=== PATIENT | male | born 1970 | race Caucasian/White ===

== ENCOUNTER 2020-12-25 07:47 | Emergency (ER) | payer MEDICARE, MEDICAID, SELFPAY ==
--- NOTE | 2020-12-25 07:50 | ECG_ITS ---
Test Reason : CHEST PAIN Blood Pressure : / mmHG Vent. Rate : 113 BPM Atrial Rate : 113 BPM P-R Int : 142 ms QRS Dur : 086 ms QT Int : 328 ms P-R-T Axes : 067 -03 063 degrees QTc Int : 449 ms Sinus tachycardia Right atrial enlargement Minimal voltage criteria for LVH, may be normal variant Nonspecific T wave abnormality Abnormal ECG When compared with ECG of 26-FEB-2020 18:17, Vent. rate has increased BY 40 BPM Nonspecific T wave abnormality now evident in Lateral leads Referred By: Generic ED Physician Electronically Signed By:Macario Thacker
[2020-12-25 08:21] VITALS: BP 124/85; PULSE 108; RESP 20; TEMP 36.8; O2SAT 96; BMI 29.3
--- NOTE | 2020-12-25 08:36 | XR_ITS ---
EXAMINATION: XR CHEST CLINICAL INFORMATION: Chest pain, shortness of breath. COMPARISON: 02/26/2020 chest radiographs. TECHNIQUE: 2 views of the chest were obtained. FINDINGS: The lungs are clear. The heart and mediastinal structures are unremarkable. A left-sided pacemaker appears in good position without interval change. XR/XR chest 2V IMPRESSION: No acute cardiopulmonary process.
--- NOTE | 2020-12-25 08:42 | ED_ITS ---
HPI - Chest Pain General Chief Complaint: Chest Pain Stated Complaint: chest pain Time Seen by Provider: 12/25/20 08:31 Source: patient Mode of arrival: ambulatory History of Present Illness HPI narrative: 50-year-old male with a past medical history of pacemaker secondary to cardiomyopathy, HTN, HLD, depression, presenting to the ED compl aining of left-sided chest pressure x2 days but right-sided substernal chest pain with deep breathing. Also reports cough productive of white phlegm and SOB. Admits recently was instructed to double that doses of his Lasix secondary to believed fluid buildup. Denies fever, chills, abdominal pain, LE edema, recent travel, history of blood clots MD complaint: chest discomfort Related Data Previous Rx's Medication Instructions Recorded furosemide 20 mg tablet 20 mg PO DAILY PRN 30 Days #30 tab 10/18/20 amiodarone 200 mg tablet 200 mg PO DAILY 90 Days #90 tab 10/25/20 carvedilol 25 mg tablet 25 mg PO BID 90 Days #180 tab 10/25/20 spironolactone 25 mg tablet 12.5 mg PO DAILY 90 Days #45 tab 11/22/20 Allergies Allergy/AdvReac Type Severity Reaction Status Date / Time No Known Allergies Allergy Verified 12/25/20 08:26 Review of Systems Review of Systems: Constitutional: No Weight loss, No Fever, No Chills Cardiovascular: + Chest Pain, + SOB, + Dyspnea on Exertion, +Orthopnea, No Edema, No Palpitations Respiratory: + Cough, + Sputum, No Wheezing Gastrointestinal: No Nausea, No Vomiting, No Diarrhea, No Constipation, No Abdominal pain Genitourinary: No irregular bleeding, No Dysuria, No Urinary Frequency, No Hematuria Musculoskeletal: No joint pain, No Myalgias, No Joint Swelling Skin: No Skin Lesions, No rash Neuro: No Weakness, No Numbness, No Dizziness, No Headache Yes all other systems are reviewed and are negative [facility] Past Medical History Attestation statement: The following information was validated with the patient. Medical History (Updated 12/25/20 @ 12:01 by CHRIS Gilmore) Artificial cardiac pacemaker Back injuries Cardiomyopathy HTN (hypertension) Social History Social History Smoking Status: Current every day smoker Use of substances other than those prescribed or required for medical reasons: No Advance Directives: No Advance Directives Information Provided: Yes Physical Exam Vital Signs: Vital Signs: Last Vital Signs Temp 98.2 F 12/25/20 08:21 Pulse 101 H 12/25/20 11:56 Resp 16 12/25/20 11:56 BP 127/82 12/25/20 11:56 Pulse Ox 99 12/25/20 11:56 Body Mass Index 29.3 Const: General: cooperative, healthy appearing, comfortable and no acute distress Orientation/consciousness: patient oriented x3 Limitations: no limitations HENMT: Head: Yes normal to inspection Ears: hearing grossly normal bilaterally General nose exam: Normal external nose present Face and sinus: Yes normal facial exam Eyes: General: appearance normal, both eyes and all related structures EOM: EOMs intact bilaterally Neck: Neck: Yes normal visual inspection and Yes no lymphadenopathy Chest: Other: Left upper chest wall pacemaker site without evidence of infection/cellulitis or tenderness Chest palpation & inspection: normal inspection of the chest Resp: Effort & Inspection: normal respiratory effort Auscultation: clear to auscultation bilaterally, no rales, no rhonchi and no wheezes Cardio: Rate: regular rate Heart sounds: S1 normal heart sound present and S2 normal heart sound present GI: Inspection: Yes normal to inspection Palpation (GI): Soft to palpation, nontender, no guarding and not rigid Skin: Rashes: no rashes Wounds: no wounds Neuro: General: patient oriented x3 Gait exam (Neuro): Normal gait present Extrem: General: Yes normal to inspection and No edema Course Course Course Narrative: * Troponin 5.3 > will obtain 3 hour repeat. BNP 124, no evidence of CHF/fluid overload. COVID-19/influenza/RSV negative XR chest 2V IMPRESSION: No acute cardiopulmonary process. * Negative. Repeat troponin equivocal PA unlikely. Results discussed with patient including worrisome signs and symptoms and strict return precautions. Patient verbalized understanding feel safe for discharge home to follow-up with his pipe bowls paint trimmer MDM - Chest Pain MDM Narrative Medical decision making narrative: 50-year-old male with a past medical history of pacemaker secondary to cardiomyopathy, HTN, HLD, depression, presenting to the ED complaining of left-sided chest pressure x2 days but right-sided substernal chest pain with deep breathing. On exam tachycardic, NAD/nontoxic appearing, lungs CTA. Concern for ACS vs PE vs CHF vs viral syndrome/COVID-19 o r pneumonia. Low concern for severe sepsis. Plan: EKG, labs, CXR, COVID-19 testing, re-evaluate Medical Records Data Attestation: I reviewed the patient's medical records. Lab Data Attestation: I reviewed the patient's lab results. Result diagrams: 12/25/20 08:53 12/25/20 08:53 Labs: Lab Results 12/25/20 12/25/20 12/25/20 Range/Units 08:53 08:53 08:53 WBC 9.2 (4.8-10.8) X10*3/uL RBC 5.15 (4.60-5.80) X10*6/uL Hgb 16.2 (14.0-18.0) g/dl Hct 48.7 (42-52) % MCV 94.6 (80-98) fL MCH 31.5 (27.0-33.0) pg MCHC 33.3 (31.0-36.0) g/dl RDW 13.9 (11.0-16.0) % Plt Count 360 (160-400) X10*3/uL MPV 9.5 (9.4-12.4) fL Immature Gran % (Auto) 0.1 (0.0-0.4) % Neut % (Auto) 73.7 H (45-73) % Lymph % (Auto) 16.6 L (20-40) % [place] % (Auto) 5.4 (2-11) % Eos % (Auto) 3.3 (0-4) % Baso % (Auto) 0.9 (0-2) % Lymph # (Auto) 1.5 (1.2-4.9) X10*3/uL [place] # (Auto) 0.5 (0.1-1.2) X10*3/uL Eos # (Auto) 0.3 (0.0-0.4) X10*3/uL Baso # (Auto) 0.1 (0.0-0.2) X10*3/uL Abs Immat Gran (auto) 0.01 (0.00-0.03) X10*3/uL Absolute Neuts (auto) 6.8 (2.0-8.3) X10*3/uL Absolute Nucleated RBC 0.000 (0.0-0.012) X10*3/uL Nucleated RBC % (auto) 0.0 (0.0-0.2) /100WBC PT (10.8-13.0) SEC INR (0.9-1.1) APTT (24.1-38.0) SEC D-Dimer NG/ML Sodium 139 (135-145) mmol/L Potassium 4.7 (3.3-5.1) mmol/l Chloride 108 (96-108) mmol/L Carbon Dioxide 23 (22-29) mmol/L Anion Gap 13 (12-20) BUN 17 H (9-16) mg/dL Creatinine 0.85 (0.5-1.4) mg/dL Estim Creat Clear Calc 110.5 Estimated GFR > 60 Random Glucose 104 (60-115) mg/dL Calcium 8.7 (8.4-10.2) mg/dL Magnesium 2.3 (1.6-2.6) mg/dL Total Bilirubin 0.5 (0.0-1.0) mg/dL Direct Bilirubin 0.2 (0.0-0.5) mg/dL AST 15 (5-37) U/L ALT 20 (0-40) U/L Alkaline Phosphatase 80 (39-117) U/L Troponin I High Sens 5.3 (<3.5-35.0) ng/L B-Natriuretic Peptide 124 H (<100) pg/mL Total Protein 7.1 (6.5-8.0) g/dL Albumin 4.2 (3.5-5.0) g/dL Coronavirus (PCR) (Negative) Influenza Type A (PCR) (Negative) Influenza Type B (PCR) (Negative) RSV RNA Qual (PCR) (Negative) 12/25/20 12/25/20 12/25/20 Range/Units 08:53 10:51 10:51 WBC (4.8-10.8) X10*3/uL RBC (4.60-5.80) X10*6/uL Hgb (14.0-18.0) g/dl Hct (42-52) % MCV (80-98) fL MCH (27.0-33.0) pg MCHC (31.0-36.0) g/dl RDW (11.0-16.0) % Plt Count (160-400) X10*3/uL MPV (9.4-12.4) fL Immature Gran % (Auto) (0.0-0.4) % Neut % (Auto) (45-73) % Lymph % (Auto) (20-40) % [place] % (Auto) (2-11) % Eos % (Auto) (0-4) % Baso % (Auto) (0-2) % Lymph # (Auto) (1.2-4.9) X10*3/uL [place] # (Auto) (0.1-1.2) X10*3/uL Eos # (Auto) (0.0-0.4) X10*3/uL Baso # (Auto) (0.0-0.2) X10*3/uL Abs Immat Gran (auto) (0.00-0.03) X10*3/uL Absolute Neuts (auto) (2.0-8.3) X10*3/uL Absolute Nucleated RBC (0.0-0.012) X10*3/uL Nucleated RBC % (auto) (0.0-0.2) /100WBC PT 11.6 (10.8-13.0) SEC INR 1.0 (0.9-1.1) APTT 31.5 (24.1-38.0) SEC D-Dimer < 200 NG/ML Sodium (135-145) mmol/L Potassium (3.3-5.1) mmol/l Chloride (96-108) mmol/L Carbon Dioxide (22-29) mmol/L Anion Gap (12-20) BUN (9-16) mg/dL Creatinine (0.5-1.4) mg/dL Estim Creat Clear Calc Estimated GFR Random Glucose (60-115) mg/dL Calcium (8.4-10.2) mg/dL Magnesium (1.6-2.6) mg/dL Total Bilirubin (0.0-1.0) mg/dL Direct Bilirubin (0.0-0.5) mg/dL AST (5-37) U/L ALT (0-40) U/L Alkaline Phosphatase (39-117) U/L Troponin I High Sens 5.4 (<3.5-35.0) ng/L B-Natriuretic Peptide (<100) pg/mL Total Protein (6.5-8.0) g/dL Albumin (3.5-5.0) g/dL Coronavirus (PCR) NEGATIVE (Negative) Influenza Type A (PCR) NEGATIVE (Negative) Influenza Type B (PCR) NEGATIVE (Negative) RSV RNA Qual (PCR) NEGATIVE (Negative) ECG Data ECG #1: Attestation: I personally reviewed and interpreted this ECG as follows: ECG interpretation date: 12/25/20 ECG interpretation time: 07:50 Prior ECG tracings: available for review Interpretation: EKG sinus tach with a rate of 113. No STEMI. Discharge Plan Discharge Clinical Impression: Chest pain Qualifiers: Chest pain type: unspecified Qualified Code(s): R07.9 - Chest pain, unspecified Patient Disposition: Home, Self-Care Instructions: Chest Pain (ED) Additional Instructions: Your blood work and chest x-ray were reassuring today in the ED. You need to call your pipe bowls paint trimmer for close follow-up. Continue taking all home prescribed medications. If her symptoms persist or worsen, he developed swelling in her legs, shortness of breath, constant worsening chest pain return to the ED Prescriptions: No Action furosemide [Lasix] 20 mg tablet 20 mg PO DAILY PRN (Reason: edema) 30 Days Qty: 30 RF: 1 amiodarone 200 mg tablet 200 mg PO DAILY 90 Days Qty: 90 RF: 1 carvedilol 25 mg tablet 25 mg PO BID 90 Days Qty: 180 RF: 1 spironolactone [Aldactone] 25 mg tablet 12.5 mg PO DAILY 90 Days Qty: 45 RF: 1 Referrals: Dwain Andre MD [Physician] - 2 days
[2020-12-25 08:59] LABS: MANUAL DIFF FLAG NO
[2020-12-25 09:01] LABS: Basophils Absolute Auto 0.1 X10*3/uL (0.0-0.2); Basophils Percent Auto 0.9 % (0-2); Eosinophils Absolute Auto 0.3 X10*3/uL (0.0-0.4); Eosinophils Percent Auto 3.3 % (0-4); Hematocrit 48.7 % (42-52); Hemoglobin 16.2 g/dl (14.0-18.0); Imm Gran Abs Auto 0.01 X10*3/uL (0.00-0.03); Imm Gran Pct Auto 0.1 % (0.0-0.4); Lymphocytes Absolute Auto 1.5 X10*3/uL (1.2-4.9); Lymphocytes Percent Auto 16.6 % (20-40); Mean Corpuscular HGB Conc 33.3 g/dl (31.0-36.0); Mean Corpuscular Hemoglobin 31.5 pg (27.0-33.0); Mean Corpuscular Volume 94.6 fL (80-98); Mean Platelet Volume 9.5 fL (9.4-12.4); Monocytes Absolute Auto 0.5 X10*3/uL (0.1-1.2); Monocytes Percent Auto 5.4 % (2-11); Neutrophils Absolute Auto 6.8 X10*3/uL (2.0-8.3); Neutrophils Percent Auto 73.7 % (45-73); Platelet Count 360 X10*3/uL (160-400); Red Blood Count 5.15 X10*6/uL (4.60-5.80); Red Cell Distribution Width 13.9 % (11.0-16.0); White Blood Count 9.2 X10*3/uL (4.8-10.8)
[2020-12-25 09:07] VITALS: PULSE 105
[2020-12-25 09:32] LABS: Alanine Aminotransferase 20 U/L (0-40); Albumin Level 4.2 g/dL (3.5-5.0); Alkaline Phosphatase 80 U/L (39-117); Anion Gap 13 (12-20); Aspartate Amino Transferase 15 U/L (5-37); Bilirubin Direct 0.2 mg/dL (0.0-0.5); Bilirubin Total 0.5 mg/dL (0.0-1.0); Blood Urea Nitrogen 17 mg/dL (9-16); Calcium 8.7 mg/dL (8.4-10.2); Carbon Dioxide 23 mmol/L (22-29); Chloride 108 mmol/L (96-108); Creatinine Clr Calc Pharmacy 110.5; Estimated Glomerular Filt Rate > 60; Glucose Random 104 mg/dL (60-115); Magnesium 2.3 mg/dL (1.6-2.6); Potassium 4.7 mmol/l (3.3-5.1); Sodium 139 mmol/L (135-145); Total Protein 7.1 g/dL (6.5-8.0)
[2020-12-25 09:39] LABS: B Type Natriuretic Peptide 124 pg/mL (<100); Troponin-I High Sensitivity 5.3 ng/L (<3.5-35.0)
[2020-12-25 09:43] LABS: Influenza A PCR NEGATIVE (Negative); Influenza B PCR NEGATIVE (Negative); Resp Syncy Virus RNA Qual PCR NEGATIVE (Negative); SARS COV2 PCR INHOUSE NEGATIVE (Negative)
[2020-12-25 11:05] LABS: Prothrombin Time 11.6 SEC (10.8-13.0)
[2020-12-25 11:08] LABS: Partial Thromboplastin Time 31.5 SEC (24.1-38.0)
[2020-12-25 11:10] LABS: D Dimer < 200 NG/ML
[2020-12-25 11:27] LABS: Troponin-I High Sensitivity 5.4 ng/L (<3.5-35.0)
[2020-12-25 11:56] VITALS: BP 127/82; PULSE 101; RESP 16; O2SAT 99
== END 2020-12-25 12:24 | disposition home or self-care (01) ==
PROVIDERS: Physician Assistant; Emergency Provider Internal Medicine; PCP Internal Medicine
DX: R07.9 Chest pain, unspecified (principal); Z20.822 Contact with and (suspected) exposure to COVID-19; R05 Cough; I10 Essential (primary) hypertension; F17.200 Nicotine dependence, unspecified, uncomplicated; Z95.0 Presence of cardiac pacemaker
CPT/HCPCS: 0241U; 36415; 71046; 80048; 80076; 83735; 83880; 84484; 85025; 85379; 85610; 85730; 93005; 99284

== ENCOUNTER → 2020-12-26 13:32 | Outpatient (BNVA) | payer MEDICARE, MEDICAID, SELFPAY | PROVIDERS: PCP Internal Medicine; Visit Provider Nurse Practitioner Family | DX: Z13.89 Encounter for screening for other disorder (principal) | CPT/HCPCS: Q3014 ==

== ENCOUNTER 2021-03-07 03:41 | Emergency (ER) | payer MEDICARE, MEDICAID, SELFPAY ==
--- NOTE | 2021-03-07 | ECG_ITS ---
Test Reason : CHEST PAIN Blood Pressure : / mmHG Vent. Rate : 122 BPM Atrial Rate : 122 BPM P-R Int : 140 ms QRS Dur : 078 ms QT Int : 316 ms P-R-T Axes : 067 -26 096 degrees QTc Int : 450 ms Sinus tachycardia Left atrial enlargement Septal infarct , age undetermined ST & T wave abnormality, consider lateral ischemia Abnormal ECG When compared with ECG of 25-DEC-2020 07:50, Septal infarct is now Present Inverted T waves have replaced nonspecific T wave abnormality in Lateral leads Referred By: Fransisca Browning Electronically Signed By:DEREK COOK MD
--- NOTE | ~2021-03-07 | CT_ITS ---
EXAMINATION: CT ANGIOGRAM OF THE CHEST WITH AND WITHOUT CONTRAST (CT PULMONARY ANGIOGRAM FOR PE) CLINICAL INFORMATION: Reason for Exam ? PE COMPARISON: None TECHNIQUE: Prior to contrast administration, noncontrast localization images were obtained. Subsequently, multidetector volumetric imaging was performed from the thoracic inlet to below the diaphragms following the administration of 65 mL Omnipaque 350 intravenous contrast. No contrast reaction reported Sagittal, coronal, and MIP oblique sagittal reformatted images were obtained on the CT workstation, uploaded to PACS, and reviewed. This CT examination was performed using dose optimization techniques as appropriate, variously including the following: *Automated exposure control *Adjustment of mA and/or kV according to patient size (this includes techniques or standardized protocols for targeted exams where dose is matched to indication/reason for exam; i.e. extremities or head) *Use of iterative reconstruction technique Total exam dose-length product 337 mGy-cm FINDINGS: QUALITY OF STUDY/CONTRAST BOLUS: Satisfactory. PULMONARY ARTERIES: No central pulmonary emboli. There is a single tiny hypodensity within the lateral segmental pulmonary artery to the left lower lobe as seen on series 7, image 327. This could represent colitis or a small embolism, whether acute or chronic mural-based. Pulmonary arteries are normal caliber. THORACIC AORTA: No aneurysm or dissection. LUNG: Mild upper lobe predominant centrilobular emphysema. Mild diffuse bronchial wall thickening without bronchiectasis. No pneumonitis. No suspicious pulmonary nodules, masses or consolidation. PLEURA: No pleural effusion or pneumothorax. MEDIASTINUM: Mild cardiomegaly. No pericardial effusion. Mild mediastinal and bilateral hilar adenopathy with lymph nodes measuring up to 1 cm short axis.. No evidence of septal bowing or right heart strain. CHEST WALL/AXILLA: No axillary or internal mammary lymphadenopathy. OSSEOUS STRUCTURES: No acute or suspicious osseous abnormality. UPPER ABDOMEN: There is a 2.4 x 1.9 cm low-density (-5 Hounsfield unit) nodule within the left adrenal gland. Subcentimeter right adrenal nodule. CT/CT angio chest PE protocol IMPRESSION: * Tiny filling defect within the lateral segmental pulmonary artery to the left lower lobe reflect a small pulmonary embolism, whether acute or chronic, contrast admixture or quantum mottle artifact. * No hemodynamically significant pulmonary embolism. * Mild emphysema and chronic airways disease. * Mild cardiomegaly. * Left adrenal lipid rich adenoma, benign. * Subcentimeter right adrenal nodule, benign. VTE: indeterminate
--- NOTE | ~2021-03-07 | XR_ITS ---
EXAMINATION: XR CHEST CLINICAL INFORMATION: Shortness of breath COMPARISON: 12/25/2020 TECHNIQUE: Frontal view of the chest was obtained. FINDINGS: Single lead AICD stably position. Normal symmetric lung volumes. No parenchymal consolidation. No pleural effusion. No pneumothorax. Cardiomediastinal silhouette and pulmonary vascularity are within normal limits. No acute osseous abnormalities. XR/XR chest 1V IMPRESSION: No acute findings
[2021-03-07 04:11] VITALS: BP 134/91; PULSE 78; RESP 16; TEMP 36.7; O2SAT 98; BMI 31.8
--- NOTE | 2021-03-07 04:25 | ED_ITS ---
HPI - Chest Pain General Chief Complaint: Chest Pain Stated Complaint: CHEST PAIN Time Seen by Provider: 03/07/21 03:49 History of Present Illness HPI narrative: Patient is a 51-year-old male with a history of nonsustained V- tach in the past. History of congestive heart failure. History of nonischemic cardiomyopathy. Status post AICD placement. Patient complained of having episode of shortness of breath that woke him up. He noticed that his monitor had multiple lights on. Patient came in for further evaluation. Patient also complaining of some pain in the chest. No cough no congestion or upper respiratory symptoms. No diaphoresis. Patient is from home. The pain is over the site of the defibrillator. Patient denies any shocks delivered. Denies any new leg swelling. Been compliant with medication. Has not been drinking alcohol. No fever no chills. Patient had 2 shots of coronavirus vaccine already. Related Data Home Medications Medication Instructions Recorded Confirmed atorvastatin 40 mg tablet 40 mg PO QAM 12/26/20 12/26/20 hydrochlorothiazide 12.5 mg capsule 12.5 mg PO QAM 12/26/20 12/26/20 losartan 50 mg tablet 50 mg PO QAM 12/26/20 12/26/20 Previous Rx's Medication Instructions Recorded amiodarone 200 mg tablet 200 mg PO DAILY 90 Days #90 tab 10/25/20 furosemide 20 mg tablet 20 mg PO .COMPLEX 30 Days #60 tab 12/26/20 carvedilol 25 mg tablet 25 mg PO BID #180 tab 02/16/21 Allergies Allergy/AdvReac Type Severity Reaction Status Date / Time No Known Allergies Allergy Verified 12/25/20 08:26 Review of Systems Review of Systems: Constitutional: No Weight loss, No Fever, No Chills, No Night Sweats, No Fatigue, No Malaise ENT/Mouth: No Hearing loss, No Ear Pain, No Nasal Congestion, No Sinus Pain, No Hoarseness, No sore throat, No Rhinorrhea, No Swallowing Difficulty Eyes: No Eye Pain, No Swelling, No Redness, No Foreign Body, No Discharge, No Vision Changes Cardiovascular: No Chest Pain, No SOB, No Dyspnea on Exertion, No Orthopnea, No Edema, No Palpitations Respiratory: Positive shortness of breath Gastrointestinal: No Nausea, No Vomiting, No Diarrhea, No Constipation, No abdominal Pain, No Hematochezia, No Melena Genitourinary: no irregular bleeding, No Dysuria, No Urinary Frequency, No Hematuria, No Urinary Incontinence, No Urgency, No Flank Pain, No Urinary Flow Changes, No Hesitancy Musculoskeletal: No joint pain, No Myalgias, No Joint Swelling Skin: No Skin Lesions, No rash Neuro: No Weakness, No Numbness, No Paresthesias, No Loss of Consciousness, No Dizziness, No Headache Psych: No Anxiety/Panic, No Depression, No SI/HI/AH/VH, No Social Issues, Heme/Lymph: No Bruising, No Bleeding,No Lymphadenopathy Endocrine: No Polyuria, No Polydipsia, No Temperature Intolerance [facility] Past Medical History Medical History Artificial cardiac pacemaker Back injuries Cardiomyopathy Chronic systolic HF (heart failure) HTN (hypertension) ICD (implantable cardioverter-defibrillator) in place Surgical History Hx of cardiac cath (~08/2015) Family History Family History Father Prostate cancer Mother No problems noted. Social History Social History Smoking Status: Current every day smoker Advance Directives: No Advance Directives Information Provided: No Physical Exam Vital Signs: Vital Signs: Last Vital Signs Temp 98.1 F 03/07/21 04:11 Pulse 78 03/07/21 04:11 Resp 16 03/07/21 04:11 BP 134/91 H 03/07/21 04:11 Pulse Ox 98 03/07/21 04:11 Body Mass Index 31.8 Appearance: Alert. Oriented X3. No acute distress. Eyes: Pupils equal, round and reactive to light. ENT: Pharynx normal. Neck: Normal inspection. Neck supple. No lymph nodes noted. No crepitus CVS: Normal heart rate and rhythm. Pulses normal. Normal S1 and S2 Respiratory: No respiratory distress. Breath sounds normal. No Wheezing. No rales Abdomen: Soft and nontender. No rigidity. No distention. good BS x4 Skin: Skin warm and dry. Normal skin color. Normal skin turgor. Extremities: No lower extremity edema. Neurovascular intact to all extremities. No Lacerations. No Rash Neuro: Oriented X 3. No motor deficit. No sensory deficit. Moving all extermities. No slurred speech MDM - Chest Pain MDM Narrative Medical decision making narrative: Patient's pacemaker interrogated. The last episode of nonsustained V-tach was back in December. There is no nonsustained V- tach that was paced back. Patient noticed slight light that went on and his pacemaker interrogation device at home. Case discussed with Vik at [employer]. No such event was triggered. Will monitor carefully labs are pending troponin is pending Patient's chest x-ray did not show any focal infiltrate. Patient's BNP however was elevated at almost 900. This is new for patient. In the setting of patient's shortness of breath since he probably has a component of congestive heart failure. He has baseline on Lasix. Will give patient additional IV Lasix. Patient's troponin is negative. He does not have a history of coronary artery disease. Will probably get another few sets of enzymes to further monitor. Patient is tachycardic, it does appear to be sinus. Patient's EKG is unchanged from previous. Will admit for further evaluation. Lab Data Result diagrams: 03/07/21 04:39 03/07/21 04:39 Labs: Lab Results 03/07/21 03/07/21 03/07/21 Range/Units 04:39 04:39 04:39 WBC 9.4 (4.8-10.8) X10*3/uL RBC 5.03 (4.60-5.80) X10*6/uL Hgb 15.0 (14.0-18.0) g/dl Hct 46.5 (42-52) % MCV 92.4 (80-98) fL MCH 29.8 (27.0-33.0) pg MCHC 32.3 (31.0-36.0) g/dl RDW 14.9 (11.0-16.0) % Plt Count 362 (160-400) X10*3/uL MPV 9.2 L (9.4-12.4) fL Immature Gran % (Auto) 0.3 (0.0-0.4) % Neut % (Auto) 67.3 (45-73) % Lymph % (Auto) 18.6 L (20-40) % [place] % (Auto) 7.3 (2-11) % Eos % (Auto) 5.3 H (0-4) % Baso % (Auto) 1.2 (0-2) % Lymph # (Auto) 1.8 (1.2-4.9) X10*3/uL [place] # (Auto) 0.7 (0.1-1.2) X10*3/uL Eos # (Auto) 0.5 H (0.0-0.4) X10*3/uL Baso # (Auto) 0.1 (0.0-0.2) X10*3/uL Abs Immat Gran (auto) 0.03 (0.00-0.03) X10*3/uL Absolute Neuts (auto) 6.3 (2.0-8.3) X10*3/uL Absolute Nucleated RBC 0.000 (0.0-0.012) X10*3/uL Nucleated RBC % (auto) 0.0 (0.0-0.2) /100WBC PT 12.3 (10.8-13.0) SEC INR 1.0 (0.9-1.1) Sodium 144 (135-145) mmol/L Potassium 4.3 (3.3-5.1) mmol/L Chloride 112 H (96-108) mmol/L Carbon Dioxide 24 (22-29) mmol/L Anion Gap 12 (12-20) BUN 19 H (9-16) mg/dL Creatinine 0.88 (0.5-1.4) mg/dL Estim Creat Clear Calc 109.7 Estimated GFR > 60 Random Glucose 119 H (60-115) mg/dL Calcium 8.6 (8.4-10.2) mg/dL Phosphorus 4.1 (2.7-4.5) mg/dL Magnesium 2.1 (1.6-2.6) mg/dL Total Bilirubin 0.4 (0.0-1.0) mg/dL Direct Bilirubin 0.2 (0.0-0.5) mg/dL AST 22 D (5-37) U/L ALT 46 H (0-40) U/L Alkaline Phosphatase 78 (39-117) U/L Troponin I High Sens (<3.5-35.0) ng/L B-Natriuretic Peptide (<100) pg/mL Total Protein 6.3 L (6.5-8.0) g/dL Albumin 3.5 (3.5-5.0) g/dL TSH (0.32-4.0) uIU/mL Ethyl Alcohol mg/dL COVID-19 ([facility]) (Negative) COVID-19 Clin Com 03/07/21 03/07/21 03/07/21 Range/Units 04:39 04:39 04:39 WBC (4.8-10.8) X10*3/uL RBC (4.60-5.80) X10*6/uL Hgb (14.0-18.0) g/dl Hct (42-52) % MCV (80-98) fL MCH (27.0-33.0) pg MCHC (31.0-36.0) g/dl RDW (11.0-16.0) % Plt Count (160-400) X10*3/uL MPV (9.4-12.4) fL Immature Gran % (Auto) (0.0-0.4) % Neut % (Auto) (45-73) % Lymph % (Auto) (20-40) % [place] % (Auto) (2-11) % Eos % (Auto) (0-4) % Baso % (Auto) (0-2) % Lymph # (Auto) (1.2-4.9) X10*3/uL [place] # (Auto) (0.1-1.2) X10*3/uL Eos # (Auto) (0.0-0.4) X10*3/uL Baso # (Auto) (0.0-0.2) X10*3/uL Abs Immat Gran (auto) (0.00-0.03) X10*3/uL Absolute Neuts (auto) (2.0-8.3) X10*3/uL Absolute Nucleated RBC (0.0-0.012) X10*3/uL Nucleated RBC % (auto) (0.0-0.2) /100WBC PT (10.8-13.0) SEC INR (0.9-1.1) Sodium (135-145) mmol/L Potassium (3.3-5.1) mmol/L Chloride (96-108) mmol/L Carbon Dioxide (22-29) mmol/L Anion Gap (12-20) BUN (9-16) mg/dL Creatinine (0.5-1.4) mg/dL Estim Creat Clear Calc Estimated GFR Random Glucose (60-115) mg/dL Calcium (8.4-10.2) mg/dL Phosphorus (2.7-4.5) mg/dL Magnesium (1.6-2.6) mg/dL Total Bilirubin (0.0-1.0) mg/dL Direct Bilirubin (0.0-0.5) mg/dL AST (5-37) U/L ALT (0-40) U/L Alkaline Phosphatase (39-117) U/L Troponin I High Sens 13.8 D (<3.5-35.0) ng/L B-Natriuretic Peptide 820 H (<100) pg/mL Total Protein (6.5-8.0) g/dL Albumin (3.5-5.0) g/dL TSH 0.88 (0.32-4.0) uIU/mL Ethyl Alcohol mg/dL COVID-19 ([facility]) Negative (Negative) COVID-19 Clin Com See Note 03/07/21 Range/Units 04:39 WBC (4.8-10.8) X10*3/uL RBC (4.60-5.80) X10*6/uL Hgb (14.0-18.0) g/dl Hct (42-52) % MCV (80-98) fL MCH (27.0-33.0) pg MCHC (31.0-36.0) g/dl RDW (11.0-16.0) % Plt Count (160-400) X10*3/uL MPV (9.4-12.4) fL Immature Gran % (Auto) (0.0-0.4) % Neut % (Auto) (45-73) % Lymph % (Auto) (20-40) % [place] % (Auto) (2-11) % Eos % (Auto) (0-4) % Baso % (Auto) (0-2) % Lymph # (Auto) (1.2-4.9) X10*3/uL [place] # (Auto) (0.1-1.2) X10*3/uL Eos # (Auto) (0.0-0.4) X10*3/uL Baso # (Auto) (0.0-0.2) X10*3/uL Abs Immat Gran (auto) (0.00-0.03) X10*3/uL Absolute Neuts (auto) (2.0-8.3) X10*3/uL Absolute Nucleated RBC (0.0-0.012) X10*3/uL Nucleated RBC % (auto) (0.0-0.2) /100WBC PT (10.8-13.0) SEC INR (0.9-1.1) Sodium (135-145) mmol/L Potassium (3.3-5.1) mmol/L Chloride (96-108) mmol/L Carbon Dioxide (22-29) mmol/L Anion Gap (12-20) BUN (9-16) mg/dL Creatinine (0.5-1.4) mg/dL Estim Creat Clear Calc Estimated GFR Random Glucose (60-115) mg/dL Calcium (8.4-10.2) mg/dL Phosphorus (2.7-4.5) mg/dL Magnesium (1.6-2.6) mg/dL Total Bilirubin (0.0-1.0) mg/dL Direct Bilirubin (0.0-0.5) mg/dL AST (5-37) U/L ALT (0-40) U/L Alkaline Phosphatase (39-117) U/L Troponin I High Sens (<3.5-35.0) ng/L B-Natriuretic Peptide (<100) pg/mL Total Protein (6.5-8.0) g/dL Albumin (3.5-5.0) g/dL TSH (0.32-4.0) uIU/mL Ethyl Alcohol < 10 mg/dL COVID-19 ([facility]) (Negative) COVID-19 Clin Com ECG Data ECG #1: Interpretation: Sinus tachycardia heart rate is 120. There is evidence for LVH. There is nonspecific T-wave flattening and inversion over the lateral leads which is old Discharge Plan Discharge Clinical Impression: Cardiomyopathy, Chronic systolic HF (heart failure), ICD (implantable cardioverter-defibrillator) in place Prescriptions: No Action amiodarone 200 mg tablet 200 mg PO DAILY 90 Days Qty: 90 RF: 1 carvedilol 25 mg tablet 25 mg PO BID Qty: 180 RF: 1 atorvastatin 40 mg tablet 40 mg PO QAM RF: 0 hydrochlorothiazide 12.5 mg capsule 12.5 mg PO QAM RF: 0 losartan 50 mg tablet 50 mg PO QAM RF: 0 furosemide [Lasix] 20 mg tablet 20 mg PO .COMPLEX 30 Days Qty: 60 RF: 5
--- NOTE | 2021-03-07 04:29 | PC.NURSE ---
@ [id number] DR ORTEGA REQUESTS CALL OUT TO [employer] REP FOR CALL BACK [employer] P[employer] IN WORKER STATES SHE WILL PAGE OUT ERLIN MELO TO ALL US BACK @ [phone] ERLIN CALL US BACK, DR ORTEGA TAKES OVER CALL RIGHT AWAY
[2021-03-07 04:47] LABS: Basophils Absolute Auto 0.1 X10*3/uL (0.0-0.2); Basophils Percent Auto 1.2 % (0-2); Eosinophils Absolute Auto 0.5 X10*3/uL (0.0-0.4); Eosinophils Percent Auto 5.3 % (0-4); Hematocrit 46.5 % (42-52); Imm Gran Abs Auto 0.03 X10*3/uL (0.00-0.03); Imm Gran Pct Auto 0.3 % (0.0-0.4); Lymphocytes Absolute Auto 1.8 X10*3/uL (1.2-4.9); Lymphocytes Percent Auto 18.6 % (20-40); MANUAL DIFF FLAG NO; Mean Corpuscular HGB Conc 32.3 g/dl (31.0-36.0); Mean Corpuscular Hemoglobin 29.8 pg (27.0-33.0); Mean Corpuscular Volume 92.4 fL (80-98); Mean Platelet Volume 9.2 fL (9.4-12.4); Monocytes Absolute Auto 0.7 X10*3/uL (0.1-1.2); Monocytes Percent Auto 7.3 % (2-11); Neutrophils Absolute Auto 6.3 X10*3/uL (2.0-8.3); Neutrophils Percent Auto 67.3 % (45-73); Platelet Count 362 X10*3/uL (160-400); Red Blood Count 5.03 X10*6/uL (4.60-5.80); Red Cell Distribution Width 14.9 % (11.0-16.0); White Blood Count 9.4 X10*3/uL (4.8-10.8)
[2021-03-07 05:00] LABS: Prothrombin Time 12.3 SEC (10.8-13.0)
[2021-03-07 05:08] LABS: Ethanol < 10 mg/dL
[2021-03-07 05:10] LABS: Alanine Aminotransferase 46 U/L (0-40); Albumin Level 3.5 g/dL (3.5-5.0); Alkaline Phosphatase 78 U/L (39-117); Anion Gap 12 (12-20); Aspartate Amino Transferase 22 U/L (5-37); Bilirubin Direct 0.2 mg/dL (0.0-0.5); Bilirubin Total 0.4 mg/dL (0.0-1.0); Blood Urea Nitrogen 19 mg/dL (9-16); Calcium 8.6 mg/dL (8.4-10.2); Carbon Dioxide 24 mmol/L (22-29); Chloride 112 mmol/L (96-108); Creatinine Clr Calc Pharmacy 109.7; Estimated Glomerular Filt Rate > 60; Glucose Random 119 mg/dL (60-115); Magnesium 2.1 mg/dL (1.6-2.6); Phosphorus 4.1 mg/dL (2.7-4.5); Potassium 4.3 mmol/L (3.3-5.1); Sodium 144 mmol/L (135-145); Total Protein 6.3 g/dL (6.5-8.0)
[2021-03-07 05:11] LABS: COVID-19 Test Negative (Negative); IDNOW Serial# 9DD0AD1C
[2021-03-07 05:19] LABS: B Type Natriuretic Peptide 820 pg/mL (<100)
[2021-03-07 05:26] LABS: Troponin-I High Sensitivity 13.8 ng/L (<3.5-35.0)
[2021-03-07 05:31] LABS: TSH reflex Free T4 0.88 uIU/mL (0.32-4.0)
== END 2021-03-07 07:34 | disposition left against medical advice (07) ==
PROVIDERS: Emergency Provider Emergency Medicine Emergency Medical Services
DX: I42.9 Cardiomyopathy, unspecified (principal); I50.22 Chronic systolic (congestive) heart failure; R06.02 Shortness of breath; Z79.899 Other long term (current) drug therapy; F17.200 Nicotine dependence, unspecified, uncomplicated; Z20.822 Contact with and (suspected) exposure to COVID-19; Z95.810 Presence of automatic (implantable) cardiac defibrillator; Z71.6 Tobacco abuse counseling
CPT/HCPCS: 36415; 71045; 71275; 80048; 80076; 80320; 83735; 83880; 84100; 84443; 84484; 85025; 85610; 87635; 93005; 96374; 99283; 99284; Q9967

== ENCOUNTER → 2021-05-09 13:51 | Outpatient (BNVA) | payer MEDICARE, MEDICAID, SELFPAY | PROVIDERS: Visit Provider Nurse Practitioner Family | DX: Z45.02 Encounter for adjustment and management of automatic implantable cardiac defibrillator (principal); I11.0 Hypertensive heart disease with heart failure; I50.22 Chronic systolic (congestive) heart failure; I42.8 Other cardiomyopathies; I47.2 Ventricular tachycardia; Z98.890 Other specified postprocedural states | CPT/HCPCS: 93005; 99212 ==

== ENCOUNTER 2021-05-09 14:55 | Inpatient (IN) | payer MEDICARE, MEDICAID, SELFPAY ==
--- NOTE | ~2021-05-09 | US_ITS ---
EXAMINATION: US VENOUS ULTRASOUND WITH DOPPLER LOWER EXTREMITY, BILATERAL CLINICAL INFORMATION: Bilateral lower extremity edema COMPARISON: None TECHNIQUE: Ultrasound of the deep veins is performed from the hip to the calf with compression sonography and color and pulse Doppler assessment. Spectral analysis with color-flow imaging is performed. FINDINGS: RIGHT: There is normal venous compression and respiratory variation and augmented flow. The visualized common femoral vein, superficial femoral vein, profunda femoral vein, popliteal vein, and the trifurcation region shows no evidence of deep venous thrombosis. There is no significant popliteal fossa cyst. LEFT: There is normal venous compression and respiratory variation and augmented flow. The visualized common femoral vein, superficial femoral vein, profunda femoral vein, popliteal vein, and the trifurcation region shows no evidence of deep venous thrombosis. There is no significant popliteal fossa cyst. If the patient's symptoms persist, followup ultrasound in 5 days 7 days might be of value to exclude proximal propagation from a non-visualized calf vein. US/US venous duplex LE BI IMPRESSION: No DVT demonstrated in the either the left or right lower extremity.
--- NOTE | ~2021-05-09 | CT_ITS ---
EXAMINATION: CT ANGIOGRAM OF THE CHEST WITH AND WITHOUT CONTRAST (CT PULMONARY ANGIOGRAM FOR PE) CLINICAL INFORMATION: Shortness of breath COMPARISON: CTA chest March 07, 2021 TECHNIQUE: Prior to contrast administration, noncontrast localization images were obtained. Subsequently, multidetector volumetric imaging was performed from the thoracic inlet to below the diaphragms following the administration of 71 mL Omnipaque 350 intravenous contrast. No contrast reaction reported Sagittal, coronal, and MIP oblique sagittal reformatted images were obtained on the CT workstation, uploaded to PACS, and reviewed. This CT examination was performed using dose optimization techniques as appropriate, variously including the following: *Automated exposure control *Adjustment of mA and/or kV according to patient size (this includes techniques or standardized protocols for targeted exams where dose is matched to indication/reason for exam; i.e. extremities or head) *Use of iterative reconstruction technique Total exam dose-length product 390 mGy-cm FINDINGS: The heart is enlarged. There is no pericardial effusion. Dual-lead AICD. Scattered enlarged mediastinal lymph nodes and prominent bilateral hilar lymph nodes are stable. Nonaneurysmal thoracic aorta. Central airways are patent. Lungs are adequately aerated. Mild emphysema is again noted. There is no lobar consolidation. No pleural effusion or pneumothorax. Stable 5 mm pulmonary nodule within the left lower lobe (image 42/54, series 12 Visualized portion of the upper abdomen demonstrate diffusely decreased liver attenuation suggesting hepatic steatosis. The gallbladder is surgically absent. Similar nodularity of the adrenal glands. Degenerative changes of the spine. CT/CT angio chest PE protocol IMPRESSION: No pulmonary arterial filling defect to suggest pulmonary embolism. Mild emphysema. Stable 5 mm left lower lobe nodule. VTE: negative According to the UPDATED 2017 Fleischner Society recommendations, the advised follow-up imaging for solid nodules < 6 mm is: LOW RISK PATIENT: No routine follow-up. HIGH RISK PATIENT: Optional CT at 12 months.
--- NOTE | ~2021-05-09 | XR_ITS ---
EXAMINATION: XR CHEST CLINICAL INFORMATION: Shortness of breath COMPARISON: CTA chest 03/07/2021, chest radiographs 03/07/2021, 12/25/2020 TECHNIQUE: Portable upright AP view of the chest was obtained. FINDINGS: There is mild enlargement cardiopericardial silhouette with unipolar AICD. The vascularity is within normal. There is no airspace consolidation or groundglass opacity or effusion. There is no pneumothorax or pleural reaction. The hilar and mediastinal contours and bony structures are unremarkable. XR/XR chest 1V IMPRESSION: Mild enlarged cardiopericardial silhouette. Vascularity normal. Lungs clear.
[2021-05-09 15:22] VITALS: BP 125/93; PULSE 108; RESP 4; TEMP 37.2; O2SAT 98; BMI 33.7
--- NOTE | 2021-05-09 15:25 | ECG_ITS ---
Test Reason : DYSPNEA Blood Pressure : / mmHG Vent. Rate : 113 BPM Atrial Rate : 113 BPM P-R Int : 150 ms QRS Dur : 086 ms QT Int : 356 ms P-R-T Axes : 063 -25 134 degrees QTc Int : 488 ms Sinus tachycardia Possible Left atrial enlargement ST & T wave abnormality, consider lateral ischemia Abnormal ECG When compared with ECG of 07-MAR-2021 03:44, No significant change was found Referred By: Gladis Diaz Electronically Signed By:DEREK COOK MD
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
--- NOTE | 2021-05-09 15:40 | PHA.MEDREC ---
Pharmacy Consult ? Medication Reconciliation Pharmacy has completed the medication reconciliation.
[2021-05-09] MEDS: Furosemide 40 MG/4 ML VIAL IVPUSH (15:58)
[2021-05-09 17:10] LABS: MANUAL DIFF FLAG NO
[2021-05-09 17:13] LABS: Appearance Urine CLEAR; Color Urine YELLOW; Glucose Urine UA NEG (NEG); Leukocyte Esterase Urine NEG (NEG); Nitrite Urine NEG (NEG); PH 7.5 (5.0-8.0); Urine Blood NEG (NEG); Urine Ketones NEG (NEG); Urine Protein NEG (NEG-TRACE)
[2021-05-09 17:14] LABS: Basophils Absolute Auto 0.1 X10*3/uL (0.0-0.2); Eosinophils Absolute Auto 0.1 X10*3/uL (0.0-0.4); Eosinophils Percent Auto 1.1 % (0-4); Hemoglobin 14.3 g/dl (14.0-18.0); Imm Gran Abs Auto 0.03 X10*3/uL (0.00-0.03); Imm Gran Pct Auto 0.4 % (0.0-0.4); Lymphocytes Absolute Auto 1.5 X10*3/uL (1.2-4.9); Lymphocytes Percent Auto 18.5 % (20-40); Mean Corpuscular HGB Conc 32.5 g/dl (31.0-36.0); Mean Corpuscular Hemoglobin 28.7 pg (27.0-33.0); Mean Corpuscular Volume 88.4 fL (80-98); Mean Platelet Volume 9.8 fL (9.4-12.4); Monocytes Absolute Auto 0.6 X10*3/uL (0.1-1.2); Monocytes Percent Auto 7.2 % (2-11); Neutrophils Percent Auto 71.8 % (45-73); Platelet Count 319 X10*3/uL (160-400); Red Blood Count 4.98 X10*6/uL (4.60-5.80); Red Cell Distribution Width 17.2 % (11.0-16.0); White Blood Count 8.3 X10*3/uL (4.8-10.8)
[2021-05-09 17:20] LABS: Lactic Acid 1.3 mmol/L (0.5-2.0)
[2021-05-09 17:21] LABS: Alanine Aminotransferase 37 U/L (0-40); Albumin Level 3.7 g/dL (3.5-5.0); Alkaline Phosphatase 108 U/L (39-117); Anion Gap 12 (12-20); Aspartate Amino Transferase 25 U/L (5-37); Bilirubin Direct 0.7 mg/dL (0.0-0.5); Bilirubin Total 1.3 mg/dL (0.0-1.0); Blood Urea Nitrogen 14 mg/dL (9-16); Calcium 9.3 mg/dL (8.4-10.2); Carbon Dioxide 31 mmol/L (22-29); Chloride 104 mmol/L (96-108); Creatinine Clr Calc Pharmacy 112.9; Estimated Glomerular Filt Rate > 60; Glucose Random 99 mg/dL (60-115); Magnesium 1.8 mg/dL (1.6-2.6); Potassium 3.6 mmol/L (3.3-5.1); Sodium 143 mmol/L (135-145); Total Protein 6.5 g/dL (6.5-8.0)
[2021-05-09 17:21] LABS: D Dimer 434 NG/ML
[2021-05-09 17:32] LABS: COVID-19 Test Negative (Negative)
[2021-05-09 17:59] LABS: Troponin-I High Sensitivity 20.1 ng/L (<3.5-35.0)
[2021-05-09 18:00] LABS: B Type Natriuretic Peptide 1542 pg/mL (<100)
[2021-05-09 18:30] VITALS: PULSE 111; RESP 20; O2SAT 96
[2021-05-09 19:11] VITALS: BP 125/93; PULSE 111; RESP 20; TEMP 37.2; O2SAT 96
[2021-05-09 19:59] LABS: Troponin-I High Sensitivity 17.6 ng/L (<3.5-35.0)
[2021-05-09 20:00] VITALS: BP 101/68; PULSE 103; RESP 24; TEMP 36.2; O2SAT 97
--- NOTE | 2021-05-09 20:04 | P.HPHOSP_ITS ---
History of Present Illness Date of Service: 05/09/21 Chief Complaint: SOB 51-year-old male with a past medical history of hypertension, CHF with EF of 10- 15%, history of AICD, history of restrictive lung disease/TYRONE on home BiPAP, recent admission to the [facility] for acute CHF exacerbation presented to the hospital today with a chief complaint of shortness of breath. Patient reports that over the past couple days he has been having shortness of breath and dyspnea on exertion with increased lower extremity edema; went to the cardiology clinic subsequently patient was sent to the ER for further evaluation. Patient denies any chest pain palpitations lightheadedness dizziness. Denies any numbness tingling. Denies any GI or symptoms. Patient reported he has been gaining weight the past 1 month almost about 20 lb. Review of all other systems is negative except mentioned above ER course: Per ER team patient was mildly dyspneic on presentation; ; given Lasix 40 mg IV. EKG nonischemic. Troponin negative. Lower extremity Doppler negative for DVT. ProBNP elevated. CT PE pending. [facility] Medical History Artificial cardiac pacemaker Back injuries Cardiomyopathy Chronic systolic HF (heart failure) HTN (hypertension) ICD (implantable cardioverter-defibrillator) in place Family History Father Prostate cancer Mother No problems noted. Surgical History Hx of cardiac cath (~08/2015) Social History Household Members: None Housing: Apartment Do you presently have visiting nurse or other home services: No Patient Tobacco Use Status: Current everyday Tobacco user Tobacco use type: Cigarette Cigarettes Per Day: 5 service: No Current occupational status: disabled Meds Allergies Allergy/AdvReac Type Severity Reaction Status Date / Time No Known Allergies Allergy Verified 12/25/20 08:26 Active Medications: Current Medications Generic Name Dose Route Start Last Admin Trade Name Freq PRN Reason Stop Dose Admin Acetaminophen 650 mg 05/09/21 19:11 Acetaminophen Supp 650 Mg Supp.Rect [place] Q6H PRN Pain, Mild (Pain Scale 1-3) Hydrocodone Bitart/Acetaminophen 1 tab 05/09/21 19:13 Hydrocodone Bit/Acetam 10/325 Tablet PO Q6H PRN pain Albuterol Sulfate 2 puff 05/09/21 19:13 Albuterol Sulfate 90 Mcg 8 Gm Inhaler INHALE Q4H PRN Shortness Of Breath Amiodarone HCl 200 mg 05/10/21 09:00 Amiodarone Hcl 200 Mg Tablet PO DAILY [facility] Atorvastatin Calcium 40 mg 05/10/21 21:00 Atorvastatin Calcium 40 Mg Tablet PO BEDTIME [facility] Carvedilol 25 mg 05/09/21 21:00 Carvedilol 25 Mg Tablet PO BID [facility] Protocol Enoxaparin Sodium 40 mg 05/09/21 19:15 Enoxaparin Sodium 40 Mg/0.4 Ml Syringe SUBCUT Q24H [facility] Furosemide 40 mg 05/10/21 09:00 Furosemide 40 Mg/4 Ml Vial IVPUSH DAILY [facility] Protocol Losartan Potassium 50 mg 05/10/21 09:00 Losartan Potassium 50 Mg Tablet PO DAILY [facility] Protocol Magnesium Hydroxide 30 ml 05/09/21 19:11 Milk Of Magnesia 30 Ml Oral.Susp PO DAILY PRN Constipation Pharmacy Consult 1 each 05/09/21 15:25 Consult Rx Perform Med Rec MISCELLANE ONCE PRN Consult order Sertraline HCl 25 mg 05/09/21 21:00 Sertraline Hcl 25 Mg Tablet PO BEDTIME [facility] Sodium Chloride 3 ml 05/10/21 00:00 0.9 % Sodium Chloride Flush 3 Ml Syringe IVFLUSH QSHIFT [facility] Home Medications Medication Instructions Recorded Confirmed Last Taken Type atorvastatin 40 mg tablet 40 mg PO QAM 12/26/20 05/09/21 Unknown History losartan 50 mg tablet 50 mg PO DAILY 12/26/20 05/09/21 Unknown History albuterol sulfate 2 puff INHALATION Q4-6H PRN 05/09/21 05/09/21 Unknown History amiodarone 200 mg PO DAILY 05/09/21 05/09/21 Unknown History furosemide 20 mg tablet 20 mg PO DAILY tab 05/09/21 05/09/21 Unknown History hydrocodone 10 mg-acetaminophen 1 tab PO Q4-6H PRN 05/09/21 05/09/21 Unknown History 325 mg tablet sertraline 25 mg tablet 25 mg PO QPM 05/09/21 05/09/21 Unknown History Physical Exam Vital Signs and Narrative: Vital Signs: Last Vital Signs Temp 99.0 F 05/09/21 15:22 Pulse 111 H 05/09/21 18:30 Resp 20 05/09/21 18:30 BP 125/93 H 05/09/21 15:22 Pulse Ox 96 05/09/21 18:30 Body Mass Index 33.7 Gen: Appears be in no acute distress HEENT: NCAT, Moist mucosa. Pulmonary: Course breath sounds, fair air entry CVS: Normal S1-S2 Abdomen: BS+, Soft, Nontender Extremities: Warm well perfused; 2+ pitting edema Neuro: Alert and awake. Results Labs CBC and Chem 7: 05/10/21 05:19 05/11/21 05:36 Labs: Laboratory Results - last 24 hr 05/09/21 05/09/21 05/09/21 16:46 16:46 16:46 MCV MCH MCHC RDW Plt Count MPV Immature Gran % (Auto) Neut % (Auto) Lymph % (Auto) [place] % (Auto) Eos % (Auto) Baso % (Auto) Lymph # (Auto) [place] # (Auto) Eos # (Auto) Baso # (Auto) Abs Immat Gran (auto) Absolute Neuts (auto) Absolute Nucleated RBC Nucleated RBC % (auto) D-Dimer Anion Gap 12 Estim Creat Clear Calc 112.9 Estimated GFR > 60 Random Glucose 99 Lactic Acid 1.3 Calcium 9.3 D Magnesium 1.8 Total Bilirubin 1.3 H Direct Bilirubin 0.7 H AST 25 ALT 37 Alkaline Phosphatase 108 D Troponin I High Sens B-Natriuretic Peptide Total Protein 6.5 Albumin 3.7 Urine Color Urine Appearance Urine pH Ur Specific [place] Urine Protein Urine Glucose (UA) Urine Ketones Urine Blood Urine Nitrite Ur Leukocyte Esterase COVID-19 ([facility]) Negative COVID-19 Clin Com See Note 05/09/21 05/09/21 05/09/21 17:03 17:03 17:04 MCV 88.4 MCH 28.7 MCHC 32.5 RDW 17.2 H Plt Count 319 MPV 9.8 Immature Gran % (Auto) 0.4 Neut % (Auto) 71.8 Lymph % (Auto) 18.5 L [place] % (Auto) 7.2 Eos % (Auto) 1.1 Baso % (Auto) 1.0 Lymph # (Auto) 1.5 [place] # (Auto) 0.6 Eos # (Auto) 0.1 Baso # (Auto) 0.1 Abs Immat Gran (auto) 0.03 Absolute Neuts (auto) 6.0 Absolute Nucleated RBC 0.000 Nucleated RBC % (auto) 0.0 D-Dimer Anion Gap Estim Creat Clear Calc Estimated GFR Random Glucose Lactic Acid Calcium Magnesium Total Bilirubin Direct Bilirubin AST ALT Alkaline Phosphatase Troponin I High Sens B-Natriuretic Peptide 1542 H Total Protein Albumin Urine Color YELLOW Urine Appearance CLEAR Urine pH 7.5 Ur Specific [place] 1.010 Urine Protein NEG Urine Glucose (UA) NEG Urine Ketones NEG Urine Blood NEG Urine Nitrite NEG Ur Leukocyte Esterase NEG COVID-19 ([facility]) COVID-19 Clin Com 05/09/21 05/09/21 05/09/21 17:04 17:04 19:26 MCV MCH MCHC RDW Plt Count MPV Immature Gran % (Auto) Neut % (Auto) Lymph % (Auto) [place] % (Auto) Eos % (Auto) Baso % (Auto) Lymph # (Auto) [place] # (Auto) Eos # (Auto) Baso # (Auto) Abs Immat Gran (auto) Absolute Neuts (auto) Absolute Nucleated RBC Nucleated RBC % (auto) D-Dimer 434 Anion Gap Estim Creat Clear Calc Estimated GFR Random Glucose Lactic Acid Calcium Magnesium Total Bilirubin Direct Bilirubin AST ALT Alkaline Phosphatase Troponin I High Sens 20.1 17.6 B-Natriuretic Peptide Total Protein Albumin Urine Color Urine Appearance Urine pH Ur Specific [place] Urine Protein Urine Glucose (UA) Urine Ketones Urine Blood Urine Nitrite Ur Leukocyte Esterase COVID-19 ([facility]) COVID-19 Clin Com Imaging Radiologist's Impressions: Impressions Chest X-Ray 05/09/21 15:25 IMPRESSION: Mild enlarged cardiopericardial silhouette. Vascularity normal. Lungs clear. Venous Duplex 05/09/21 15:25 IMPRESSION: No DVT demonstrated in the either the left or right lower extremity. Assessment and Plan (1) Congestive heart failure: Qualifiers: Heart failure chronicity: acute Heart failure type: unspecified Qualified Code(s): I50.9 - Heart failure, unspecified Status: Acute 51-year-old male with a past medical history of hypertension, CHF with EF of 10-15%, history of AICD, history of restrictive lung disease, TYRONE on home BiPAP presented to the hospital with a chief complaint of shortness of breath/dyspnea on exertion/leg swelling/weight gain-noted to be in acute CHF. Admitted for further management. Acute on chronic systolic heart failure: Continue Lasix 40 mg IV b.i.d.. Initial troponin [id number] troponin pending Cardiology consult for further recommendations. Patient was seen in the cardiology clinic earlier today. I's and O's and daily weights. D-dimer slightly elevated-venous duplex negative; CT PE showed no PE NSVT: 17beats; asymptomatic; cardiology consulted; k 3.6; mag 1.8; Hypertension/hyperlipidemia: Continue home medications. For all other chronic conditions, Continue home medications DVT prophylaxis: Lovenox Code status: Full code
[2021-05-09] MEDS: iohexoL 350 MG/ML 100 ML INFUS..BTL IV (20:47)
[2021-05-09 22:26] VITALS: BP 101/68; PULSE 106
[2021-05-09] MEDS: carvediloL 25 MG TABLET PO (22:26)
[2021-05-09] MEDS: Sertraline HCL 25 MG TABLET PO (22:26)
[2021-05-09] MEDS: Enoxaparin Sodium 40 MG/0.4 ML SYRINGE SUBCUT (22:27)
[2021-05-09] MEDS: 0.9 % Sodium Chloride Flush 3 ML SYRINGE IVFLUSH (22:28)
[2021-05-09] MEDS: Benzonatate 100 MG CAPSULE PO (23:15)
[2021-05-09 23:52] VITALS: BP 129/69; PULSE 100; RESP 18; TEMP 36.9; O2SAT 99
[2021-05-10] VITALS (9 sets, daily range): BP systolic 87–106; BP diastolic 55–73; PULSE 68–87; RESP 18–24; TEMP 36.3–36.8; O2SAT 93–100
[2021-05-10] MEDS: guaiFEN/Codeine SF 200/20/10ML 10 ML LIQUID 5 ML PO (03:24)
[2021-05-10 06:32] LABS: MANUAL DIFF FLAG NO
[2021-05-10 06:48] LABS: Basophils Absolute Auto 0.1 X10*3/uL (0.0-0.2); Basophils Percent Auto 1.2 % (0-2); Eosinophils Absolute Auto 0.1 X10*3/uL (0.0-0.4); Eosinophils Percent Auto 1.7 % (0-4); Hematocrit 40.5 % (42-52); Hemoglobin 13.1 g/dl (14.0-18.0); Imm Gran Abs Auto 0.02 X10*3/uL (0.00-0.03); Imm Gran Pct Auto 0.3 % (0.0-0.4); Lymphocytes Absolute Auto 1.7 X10*3/uL (1.2-4.9); Lymphocytes Percent Auto 24.9 % (20-40); Mean Corpuscular HGB Conc 32.3 g/dl (31.0-36.0); Mean Corpuscular Hemoglobin 28.4 pg (27.0-33.0); Mean Corpuscular Volume 87.9 fL (80-98); Mean Platelet Volume 10.1 fL (9.4-12.4); Monocytes Absolute Auto 0.5 X10*3/uL (0.1-1.2); Monocytes Percent Auto 7.4 % (2-11); Neutrophils Absolute Auto 4.5 X10*3/uL (2.0-8.3); Neutrophils Percent Auto 64.5 % (45-73); Platelet Count 283 X10*3/uL (160-400); Red Blood Count 4.61 X10*6/uL (4.60-5.80); Red Cell Distribution Width 17.1 % (11.0-16.0); White Blood Count 6.9 X10*3/uL (4.8-10.8)
[2021-05-10 07:05] LABS: Anion Gap 12 (12-20); Blood Urea Nitrogen 14 mg/dL (9-16); Calcium 8.5 mg/dL (8.4-10.2); Carbon Dioxide 30 mmol/L (22-29); Chloride 103 mmol/L (96-108); Creatinine Clr Calc Pharmacy 115.5; Estimated Glomerular Filt Rate > 60; Glucose Random 101 mg/dL (60-115); Potassium 3.1 mmol/L (3.3-5.1); Sodium 142 mmol/L (135-145)
[2021-05-10 07:17] LABS: Magnesium 1.7 mg/dL (1.6-2.6)
--- NOTE | 2021-05-10 07:30 | CA_ITS ---
Transthoracic Echocardiogram Patient (Last, First, Middle): Stephen Sheth D Gender: Male Date of : 1970 Age: 51 Procedure Date: 05/10/2021 Procedure Type: Transthoracic Echocardiogram Location: [facility] [place] Height: 172.72 cm Weight: 100.7 kg BSA: 2.14 m2 Heart Rate: bpm BP: 102 / 70 mmHg Rate Analyst: ABDIEL Referring MD: Yaron Fletcher MD Symptoms: chf Study Quality: Good Conclusions: - 1. Moderately dilated left ventricle with severe LV systolic dysfunction with LVEF of 20-25% with at least grade 2 diastolic dysfunction 2. Moderately dilated left atrium 3. Multiple masses attached to defibrillator leads suggestive of either vegetation or thrombus 4. Mild mitral regurgitation 5. Significantly elevated right atrial pressures 6. No pericardial effusion Findings Left Ventricle Moderately increased left ventricular cavity size. There is normal left ventricular wall thickness. The left ventricular systolic function is severely decreased. The visually estimated ejection fraction is between 20 25%. There is severe global hypokinesis. Spectral Doppler is indicative of a pseudonormal filling pattern. E/E prime ratio is >15, consistent with elevated filling pressures. Evidence suggests grade II (moderate) diastolic dysfunction. Right Ventricle Normal right ventricular cavity size and systolic function. There is an ICD wire seen in the right ventricle. The mass appears irregular in shape and has a solid appearance. There are couple of masses attached to the defibrillator lead both in the ventricular and atrial cavity. This could represent vegetation or a thrombus. Atria The left atrium is moderately dilated. There is no evidence of interatrial shunt. The right atrium is mildly dilated. Aortic Valve The aortic valve structure and function is likely normal. There is no aortic valve stenosis. There is no aortic valve regurgitation. Mitral Valve There is mild anterior and posterior mitral leaflet thickening. There is mild mitral valve regurgitation. There is no mitral valve stenosis. There is moderate mitral annular dilatation. Pulmonic Valve The pulmonic valve is likely normal. Tricuspid Valve Normal tricuspid valve structure. There is mild tricuspid valve regurgitation. Significantly elevated right atrial pressure. Great Vessels All visible segments of the aorta are normal in size. The pulmonary artery was not well visualized. Venous The inferior vena cava is severely dilated and collapses less than 50% with inspiration. Pericardium/Pleural There is no evidence of pericardial effusion. Prior Study Comparison Changes noted compared to prior study dated: 02/09/2020. Masses attached to defibrillator lead Measurements 2D Linear Measurements IVSd: 0.86 0.6-0.9/0.6-1.0 cm LVIDd: 6.71 3.9-5.3/4.2-5.9 cm LVIDd Index: 3.14 2.4-3.2/2.2-3.1 cm/m2 LVIDs: 6.34 2.0-3.6 cm LVPWd: 0.97 0.7-1.1 cm Ao Root: 3.60 2.1-3.5 cm LA Diam: 5.20 2.7-3.8/3.0-4.0 cm LAIDs Index: 2.43 1.5-2.3 cm/m2 LV Mass: 335.38 67-162/88-224 g LV Mass Index: 156.72 43-95/49-115 g/m2 LVOT Diam: 2.10 3.0+(-)1.3 cm 2D Systolic Function EF 4C: 31.00 >55% EF 2C: 19.60 >55% EF BiP: 24.80 >55% Mitral Valve E'Lateral: 7.29 E'Medial: 3.37 Aortic Valve AoV Pk [place]: 0.70 AoV Mn [place]: 0.50 AoV VTI: 0.12 AoV Pk Grad: 2.00 Aov Mn Grad: 1.00 SAULO Cont.VTI: 1.48 LVOT LVOT Pk [place]: 0.35 LVOT Mn [place]: 0.22 LVOT VTI: 0.05 LVOT Pk Grad: 0.00 LVOT Mn Grad: 0.00 LVOT Diam: 2.10 LVOT Area: 3.46 Diastolic Function E'Medial: 3.37 E' Laterial: 7.29 Tricuspid Valve TR Pk [place]: 2.62 TR Pk Grad: 27.00 RA Press: 15.00 RVSP: 42.00 Great Vessels Aorta Ao Root-2D: 3.60 2.0-3.7 cm Ao Asc: 3.90 2.1-3.4 cm Ao Arch: 3.10 Updated in Other Vendor System with Status of Final Bud Collado MD electronically signed on 05/10/2021 3:10:32 PM with status of Final
[2021-05-10] MEDS: Furosemide 40 MG/4 ML VIAL IVPUSH (08:51)
[2021-05-10] MEDS: carvediloL 25 MG TABLET PO ×2 (08:51→20:08)
[2021-05-10] MEDS: Losartan Potassium 50 MG TABLET PO (08:51)
[2021-05-10] MEDS: Amiodarone HCL 200 MG TABLET PO (08:51)
[2021-05-10] MEDS: 0.9 % Sodium Chloride Flush 3 ML SYRINGE IVFLUSH ×3 (08:51→23:26)
[2021-05-10] MEDS: Potassium Chloride/H20 10 MEQ/100 ML PIGGYBACK 100 MEQ IV ×2 (09:00→10:08)
[2021-05-10] MEDS: Potassium Chloride ER 20 MEQ TAB.ER.PRT PO ×3 (09:03→22:52)
[2021-05-10] MEDS: guaiFENesin 100 MG/5 ML LIQUID PO ×2 (09:25→20:07)
--- NOTE | 2021-05-10 10:03 | P.CONCA_ITS ---
History of Present Illness History of Present Illness Date of Service: 05/10/21 Requesting physician: Yaron Fletcher Consult reason: congestive heart failure Chief complaint: Acute CHF Narrative: I was requested to see Stephen in cardiology consultation today for decompensated congestive heart failure. Stephen presented to the office yeste rday's to see Carleen and he was in significant distress with shortness of breath as well as weight gain of 20 lb, leg edema. He was therefore advised to go to the emergency room was subsequently admitted for decompensated congestive heart failure. He has prior history of nonischemic cardiomyopathy last LVEF of 10- 15%, single-chamber Medtronic ICD, nonsustained VT, hypertension. Patient recently was admitted to [facility] was diuresed with good response with improvement in thoracic impedance on his device noted. Her says that within 2 days he started feeling poorly again. He was only on 20 mg of Lasix at home and this was increased to 20 mg twice a day. However he continued to remain persistently symptomatic with increasing leg swelling, abdominal distention, weight gain, worsening shortness of breath, orthopnea ended up being hospitalized yesterday. He is in decompensated congestive heart failure remains symptomatic with shortness of breath. However he says his leg edema is improved somewhat. His abdominal distention is also improved. He says he has been taking all his medications. He is also not using any alcohol any other drugs. He is also not using any significant amount of salt in his diet. Review of Systems Constitutional: Constitutional: Denies chills, Reports fatigue, Denies fever(s) and Reports weight gain Cardiovascular: Cardiovascular: Denies chest pain, Reports leg edema, Denies lightheadedness, Denies Loss of Consciousness, Denies palpitations, Reports dyspnea, Reports dyspnea on exertion, Reports orthopnea and Reports other (No ICD discharge) Respiratory: Respiratory: Reports chest congestion, Denies cough, Reports dyspnea and Reports dyspnea on exertion Gastrointestinal: Gastrointestinal: Reports bloating Musculoskeletal: Musculoskeletal: Reports no additional musculoskeletal complaints Neurologic: Reports system reviewed and no additional complaints, except as documented Psychiatric: Psychiatric: Reports no additional psychiatric complaints Endocrine: Endocrine: Reports no additional endocrine complaints, Reports fat igue and Denies palpitations Hematologic/Lymphatic: Hematologic/Lymphatic: Reports no additional h ematologic/lymphatic complaints PMFSH Past Medical History Medical History Artificial cardiac pacemaker Back injuries Cardiomyopathy Chronic systolic HF (heart failure) HTN (hypertension) ICD (implantable cardioverter-defibrillator) in place Family History Family History Father Prostate cancer Mother No problems noted. Surgical History Surgical History Hx of cardiac cath (~08/2015) Social History Social History Household Members: None Housing: Apartment Do you presently have visiting nurse or other home services: No Patient Tobacco Use Status: Current everyday Tobacco user Tobacco use type: Cigarette Cigarettes Per Day: 5 Smoked in Last 30 Days: Yes Patient Interested in Nicotine Replacement: No Patient Given Instructions on How to Stop Smoking: No Use of substances other than those prescribed or required for medical reasons: No Currently Displaying Signs/Symptoms of Drug Intoxication Withdrawal: No Have you been hit, kicked, punched, or otherwise hurt by someone within the past year? If so, by whom?: No Do you feel safe in your current relationship?: No Current Relationship Is there a partner from a previous relationship who is making you feel unsafe now?: No Are you made to feel afraid or neglected: No Advance Directives: No Advance Directives Information Provided: Yes Do you have thoughts of harming others: None Do you have a plan to hurt others: No Plan Recently lost weight without trying: No How much weight loss: Unsure Eating poorly because of decreased appetite: No Nutrition screen score: 2 Nutrition Risks: No Nutritional Risk Meds Allergies Allergy/AdvReac Type Severity Reaction Status Date / Time No Known Allergies Allergy Verified 12/25/20 08:26 Active Medications: Current Medications Generic Name Dose Route Start Last Admin Trade Name Freq PRN Reason Stop Dose Admin Acetaminophen 650 mg 05/09/21 19:11 Acetaminophen Supp 650 Mg Supp.Rect FL Q6H PRN Pain, Mild (Pain Scale 1-3) Hydrocodone Bitart/Acetaminophen 1 tab 05/09/21 19:13 05/10/21 08:51 Hydrocodone Bit/Acetam 10/325 Tablet PO 1 tab Q6H PRN Administration pain Albuterol Sulfate 2 puff 05/09/21 19:13 Albuterol Sulfate 90 Mcg 8 Gm Inhaler INHALE Q4H PRN Shortness Of Breath Amiodarone HCl 200 mg 05/10/21 09:00 05/10/21 08:51 Amiodarone Hcl 200 Mg Tablet PO 200 mg DAILY BETTINA Administration Atorvastatin Calcium 40 mg 05/10/21 21:00 Atorvastatin Calcium 40 Mg Tablet PO BEDTIME BETTINA Carvedilol 25 mg 05/09/21 21:00 05/10/21 08:51 Carvedilol 25 Mg Tablet PO 25 mg BID BETTINA Administration Protocol Enoxaparin Sodium 40 mg 05/09/21 19:15 05/09/21 22:27 Enoxaparin Sodium 40 Mg/0.4 Ml Syringe SUBCUT 40 mg Q24H BETTINA Administration Furosemide 40 mg 05/10/21 09:00 05/10/21 08:51 Furosemide 40 Mg/4 Ml Vial IVPUSH 40 mg DAILY BETTINA Administration Protocol Guaifenesin 5 ml 05/10/21 09:14 05/10/21 09:25 Guaifenesin 100 Mg/5 Ml Liquid PO 5 ml Q6H PRN Administration Cough Potassium Chloride 10 meq in 100 mls @ 100 mls/hr 05/10/21 09:00 05/10/21 09:00 IV 05/10/21 10:59 100 mls/hr Q1H BETTINA Administration Magnesium Sulfate 2 gm in 50 mls @ 25 mls/hr 05/10/21 09:00 Magnesium Sulfate/H2o IV 05/10/21 10:59 ONCE ONE Losartan Potassium 50 mg 05/10/21 09:00 05/10/21 08:51 Losartan Potassium 50 Mg Tablet PO 50 mg DAILY BETTINA Administration Protocol Magnesium Hydroxide 30 ml 05/09/21 19:11 Milk Of Magnesia 30 Ml Oral.Susp PO DAILY PRN Constipation Pharmacy Consult 1 each 05/09/21 15:25 Consult Rx Perform Med Rec MISCELLANE ONCE PRN Consult order Potassium Chloride 20 meq 05/10/21 09:00 05/10/21 09:03 Potassium Chloride Er 20 Meq Tab.Er.Prt PO 20 meq BID BETTINA Administration Sertraline HCl 25 mg 05/09/21 21:00 05/09/21 22:26 Sertraline Hcl 25 Mg Tablet PO 25 mg BEDTIME BETTINA Administration Sodium Chloride 3 ml 05/10/21 00:00 05/10/21 08:51 0.9 % Sodium Chloride Flush 3 Ml Syringe IVFLUSH 3 ml QSHIFT [facility] Administration Home Medications Medication Instructions Recorded Confirmed Last Taken Type atorvastatin 40 mg tablet 40 mg PO QAM 12/26/20 05/09/21 Unknown History losartan 50 mg tablet 50 mg PO DAILY 12/26/20 05/09/21 Unknown History albuterol sulfate 2 puff INHALATION Q4-6H PRN 05/09/21 05/09/21 Unknown History amiodarone 200 mg PO DAILY 05/09/21 05/09/21 Unknown History furosemide 20 mg tablet 20 mg PO DAILY tab 05/09/21 05/09/21 Unknown History hydrocodone 10 mg-acetaminophen 1 tab PO Q4-6H PRN 05/09/21 05/09/21 Unknown History 325 mg tablet sertraline 25 mg tablet 25 mg PO QPM 05/09/21 05/09/21 Unknown History spironolactone 25 mg tablet 12.5 mg PO DAILY tab 05/09/21 05/09/21 Unknown H istory Physical Exam Vital Signs: Vital Signs: Last Vital Signs Temp 97.4 F 05/10/21 07:10 Pulse 81 05/10/21 08:51 Resp 20 05/10/21 07:10 BP 106/55 L 05/10/21 08:51 Pulse Ox 98 05/10/21 07:10 Body Mass Index 33.7 Const: General: cooperative, comfortable, alert, awake, acute distress moderate and respiratory and tired appearing Nutritional Appearance: obese Orientation/consciousness: patient oriented x3 Limitations: no limitations HENMT: Head: Yes normocephalic and Yes atraumatic Neck: Neck: Yes trachea midline, Yes supple and Yes JVD Resp: Effort & Inspection: normal respiratory effort Auscultation: clear to auscultation bilaterally Cardio: Palpation: abnormal PMI displaced PMI Rate: regular rate Rhythm: regular rhythm Heart sounds: S1 normal heart sound present, S2 normal heart sound present, Gallop heart sound present S3 gallop and Other heart sounds pres ent GI: Auscultation: normal bowel sounds Skin: General skin exam: no rashes or lesions noted Neuro: General: patient oriented x3 and no focal motor deficits Extrem: General: No clubbing, No cyanosis and Yes edema Psych: Appearance: grossly normal Affect: Anxious affect present Results Labs and Meds Result diagrams: 05/10/21 05:19 05/10/21 05:19 Lab results: Laboratory Results - last 24 hr 05/09/21 05/09/21 05/09/21 16:46 16:46 16:46 WBC RBC Hgb Hct MCV MCH MCHC RDW Plt Count MPV Immature Gran % (Auto) Neut % (Auto) Lymph % (Auto) [place] % (Auto) Eos % (Auto) Baso % (Auto) Lymph # (Auto) [place] # (Auto) Eos # (Auto) Baso # (Auto) Abs Immat Gran (auto) Absolute Neuts (auto) Absolute Nucleated RBC Nucleated RBC % (auto) D-Dimer Sodium 143 Potassium 3.6 Chloride 104 Carbon Dioxide 31 H Anion Gap 12 BUN 14 Creatinine 0.88 Estim Creat Clear Calc 112.9 Estimated GFR > 60 Random Glucose 99 Lactic Acid 1.3 Calcium 9.3 D Magnesium 1.8 Total Bilirubin 1.3 H Direct Bilirubin 0.7 H AST 25 ALT 37 Alkaline Phosphatase 108 D Troponin I High Sens B-Natriuretic Peptide Total Protein 6.5 Albumin 3.7 Urine Color Urine Appearance Urine pH Ur Specific [place] Urine Protein Urine Glucose (UA) Urine Ketones Urine Blood Urine Nitrite Ur Leukocyte Esterase COVID-19 ([facility]) Negative COVID-19 Clin Com See Note 05/09/21 05/09/21 05/09/21 17:03 17:03 17:04 WBC 8.3 RBC 4.98 Hgb 14.3 Hct 44.0 MCV 88.4 MCH 28.7 MCHC 32.5 RDW 17.2 H Plt Count 319 MPV 9.8 Immature Gran % (Auto) 0.4 Neut % (Auto) 71.8 Lymph % (Auto) 18.5 L [place] % (Auto) 7.2 Eos % (Auto) 1.1 Baso % (Auto) 1.0 Lymph # (Auto) 1.5 [place] # (Auto) 0.6 Eos # (Auto) 0.1 Baso # (Auto) 0.1 Abs Immat Gran (auto) 0.03 Absolute Neuts (auto) 6.0 Absolute Nucleated RBC 0.000 Nucleated RBC % (auto) 0.0 D-Dimer Sodium Potassium Chloride Carbon Dioxide Anion Gap BUN Creatinine Estim Creat Clear Calc Estimated GFR Random Glucose Lactic Acid Calcium Magnesium Total Bilirubin Direct Bilirubin AST ALT Alkaline Phosphatase Troponin I High Sens B-Natriuretic Peptide 1542 H Total Protein Albumin Urine Color YELLOW Urine Appearance CLEAR Urine pH 7.5 Ur Specific [place] 1.010 Urine Protein NEG Urine Glucose (UA) NEG Urine Ketones NEG Urine Blood NEG Urine Nitrite NEG Ur Leukocyte Esterase NEG COVID-19 ([facility]) COVID-19 [place] 05/09/21 05/09/21 05/09/21 17:04 17:04 19:26 WBC RBC Hgb Hct MCV MCH MCHC RDW Plt Count MPV Immature Gran % (Auto) Neut % (Auto) Lymph % (Auto) [place] % (Auto) Eos % (Auto) Baso % (Auto) Lymph # (Auto) [place] # (Auto) Eos # (Auto) Baso # (Auto) Abs Immat Gran (auto) Absolute Neuts (auto) Absolute Nucleated RBC Nucleated RBC % (auto) D-Dimer 434 Sodium Potassium Chloride Carbon Dioxide Anion Gap BUN Creatinine Estim Creat Clear Calc Estimated GFR Random Glucose Lactic Acid Calcium Magnesium Total Bilirubin Direct Bilirubin AST ALT Alkaline Phosphatase Troponin I High Sens 20.1 17.6 B-Natriuretic Peptide Total Protein Albumin Urine Color Urine Appearance Urine pH Ur Specific [place] Urine Protein Urine Glucose (UA) Urine Ketones Urine Blood Urine Nitrite Ur Leukocyte Esterase COVID-19 ([facility]) COVID-19 [place] 05/10/21 05/10/21 05/10/21 05:19 05:19 05:19 WBC 6.9 RBC 4.61 Hgb 13.1 L Hct 40.5 L MCV 87.9 MCH 28.4 MCHC 32.3 RDW 17.1 H Plt Count 283 MPV 10.1 Immature Gran % (Auto) 0.3 Neut % (Auto) 64.5 Lymph % (Auto) 24.9 [place] % (Auto) 7.4 Eos % (Auto) 1.7 Baso % (Auto) 1.2 Lymph # (Auto) 1.7 [place] # (Auto) 0.5 Eos # (Auto) 0.1 Baso # (Auto) 0.1 Abs Immat Gran (auto) 0.02 Absolute Neuts (auto) 4.5 Absolute Nucleated RBC 0.000 Nucleated RBC % (auto) 0.0 D-Dimer Sodium 142 Potassium 3.1 L Chloride 103 Carbon Dioxide 30 H Anion Gap 12 BUN 14 Creatinine 0.86 Estim Creat Clear Calc 115.5 Estimated GFR > 60 Random Glucose 101 Lactic Acid Calcium 8.5 D Magnesium 1.7 Total Bilirubin Direct Bilirubin AST ALT Alkaline Phosphatase Troponin I High Sens B-Natriuretic Peptide Total Protein Albumin Urine Color Urine Appearance Urine pH Ur Specific [place] Urine Protein Urine Glucose (UA) Urine Ketones Urine Blood Urine Nitrite Ur Leukocyte Esterase COVID-19 ([facility]) COVID-19 Clin Com EKG on admission showed sinus tachycardia with nonspecific ST T wave changes. Imaging Radiologist's impression: Impressions Chest X-Ray 05/09/21 15:25 IMPRESSION: Mild enlarged cardiopericardial silhouette. Vascularity normal. Lungs clear. Venous Duplex 05/09/21 15:25 IMPRESSION: No DVT demonstrated in the either the left or right lower extremity. Chest CTA 05/09/21 20:20 IMPRESSION: No pulmonary arterial filling defect to suggest pulmonary embolism. Mild emphysema. Stable 5 mm left lower lobe nodule. VTE: negative According to the UPDATED 2017 Fleischner Society recommendations, the advised follow-up imaging for solid nodules < 6 mm is: LOW RISK PATIENT: No routine follow-up. HIGH RISK PATIENT: Optional CT at 12 months. Assessment and Plan (1) Decompensated heart failure: Status: Acute Patient with decompensated congestive heart failure, acute despite good therapy and compliance with this therapy. This is suggestive more advancing heart failure syndrome. He does have marked LV systolic dysfunction with LVEF of 10-15%. Repeat echo was performed today will review it. Clinically is significantly symptomatic and remains fluid overloaded. He has had about 20 lb of weight gain. Start him on IV Lasix drip. Strict intake and output chart and daily weight needs to be pursued. Continue to trend BMP and BNP. He is on ca rvedilol therapy which will be continued. Tachycardia is most likely due to decompensation. Continue to monitor his heart rate. Switch losartan to Entresto therapy in will watch his blood pressure closely. Acceptable blood pressure up to systolic 90 as long as he has no signs of hypoperfusion. Continue Aldactone 12.5 mg daily and will maximize as tolerated. Continue to monitor his renal function closely. Eventually once maximized Entresto therapy, will also add Jardiance to his regimen as noted by recent data. With heart rate remains elevated can also add Corlanor to his therapy. Will follow with you. (2) Cardiomyopathy: Qualifiers: Cardiomyopathy type: other Qualified Code(s): I42.8 - Other cardiomyopathies Status: Acute Severe cardiomyopathy progressive LV systolic dysfunction progressive heart failure syndrome. May require more advanced heart failure therapy and see advanced heart failure team at [facility] for more mechanical to morillo substitution if he does not respond to medical therapy and his recurrent hospitalization and or has renal dysfunction. Continue to maximize neurohormonal modulation. Will switch losartan to Entresto. Will maximize Aldactone therapy. Prognosis is guarded. Will follow with the patient. Procedures Date of Service Date of Service: 05/10/21
[2021-05-10] MEDS: Magnesium Sulfate/H2O 2 GM/50 ML PIGGYBACK IV (11:39)
--- NOTE | 2021-05-10 11:53 | MHC.CLN ---
RE: CONSULT REVIEWED 2 GM NA DIET R/T CHF SEE TEACHING RECORD
--- NOTE | 2021-05-10 12:03 | P.PNIM_ITS ---
Subjective Subjective Date of Service: 05/10/21 Interval History: Seen in f/u for heart failure exacerbation. patient was admitted overnight with exacerbation of systolic heart failure with EF of 10 to 15 and has gained about 20 Ib and is sob breath, he was about to be started on IV Lasix drip but then developped hypotension with increasing sob, and therefore was transfer to ICU for further care. Review of Systems Gen: no fever Resp: + sob, no cough CV: no chest, +[place], + leg edema GI: No n/v, no abd pain Neuro: No confusion Physical Exam Vital Signs: Vital Signs: Last Vital Signs Temp 98.0 F 05/10/21 11:05 Pulse 76 05/10/21 11:05 Resp 20 05/10/21 11:05 BP 88/60 L 05/10/21 11:05 Pulse Ox 97 05/10/21 11:05 Body Mass Index 33.7 Constitutional Awake and Alert, No apparent distress Neck Supple, No lymphadenopathy, positive JVD Cardiovascular RRR, No M/R/G, S1 S2, No S3 S4, 2 to 3+ pedal edema rodolfo Respiratory Lungs clear, No respiratory distress Gastrointestinal Non tender, Non-distended Skin No rash Neurological Alert & oriented x3 Psychological Appropriate affect Objective Data Current Medications Generic Name Dose Route Start Last Admin Trade Name Freq PRN Reason Stop Dose Admin Acetaminophen 650 mg 05/09/21 19:11 Acetaminophen Supp 650 Mg Supp.Rect [place] Q6H PRN Pain, Mild (Pain Scale 1-3) Hydrocodone Bitart/Acetaminophen 1 tab 05/09/21 19:13 05/10/21 08:51 Hydrocodone Bit/Acetam 10/325 Tablet PO 1 tab Q6H PRN Administration pain Albuterol Sulfate 2 puff 05/09/21 19:13 Albuterol Sulfate 90 Mcg 8 Gm Inhaler INHALE Q4H PRN Shortness Of Breath Amiodarone HCl 200 mg 05/10/21 09:00 05/10/21 08:51 Amiodarone Hcl 200 Mg Tablet PO 200 mg DAILY BETTINA Administration Atorvastatin Calcium 40 mg 05/10/21 21:00 Atorvastatin Calcium 40 Mg Tablet PO BEDTIME BETTINA Carvedilol 25 mg 05/09/21 21:00 05/10/21 08:51 Carvedilol 25 Mg Tablet PO 25 mg BID BETTINA Administration Protocol Enoxaparin Sodium 40 mg 05/09/21 19:15 05/09/21 22:27 Enoxaparin Sodium 40 Mg/0.4 Ml Syringe SUBCUT 40 mg Q24H BETTINA Administration Guaifenesin 5 ml 05/10/21 09:14 05/10/21 09:25 Guaifenesin 100 Mg/5 Ml Liquid PO 5 ml Q6H PRN Administration Cough Furosemide 200 mg/ Sodium 100 mls @ 2.5 mls/hr 05/10/21 11:00 Chloride IVCONT .Q24H BETTINA 5 MG/HR Magnesium Hydroxide 30 ml 05/09/21 19:11 Milk Of Magnesia 30 Ml Oral.Susp PO DAILY PRN Constipation Pharmacy Consult 1 each 05/09/21 15:25 Consult Rx Perform Med Rec MISCELLANE ONCE PRN Consult order Potassium Chloride 20 meq 05/10/21 09:00 05/10/21 09:03 Potassium Chloride Er 20 Meq Tab.Er.Prt PO 20 meq BID BETTINA Administration Sacubitril/Valsartan 1 tab 05/10/21 10:30 05/10/21 11:22 Sacubitril/Valsartan 2426 1 Tab Tablet PO Not Given BID BETTINA Protocol Sertraline HCl 25 mg 05/09/21 21:00 05/09/21 22:26 Sertraline Hcl 25 Mg Tablet PO 25 mg BEDTIME BETTINA Administration Sodium Chloride 3 ml 05/10/21 00:00 05/10/21 08:51 0.9 % Sodium Chloride Flush 3 Ml Syringe IVFLUSH 3 ml QSHIFT BETTINA Administration Labs CBC & Chem 7: 05/10/21 05:19 05/10/21 05:19 Assessment and Plan (1) Congestive heart failure: Status: Acute Assessment and Plan: 51-year-old male with a past medical history of hypertension, CHF with EF of 10- 15%, history of AICD, history of restrictive lung disease, TYRONE on home BiPAP presented to the hospital with a chief complaint of shortness of breath, weight gain, leg edama and has decompensated heart failure Acute on chronic systolic heart failure with severely reduced EF Unfortunately he was on IV Lasix push but without significantly effect and was been transitioned to IV Lasix drip but then he developped HypOtension before lasix drip can be started and was transfered to ICU for possible administraton of pressors such dopamine. Transfer discussed with Dr. Stemp NSVT: 17 beats; asymptomatic; cardiology consulted; k 3.; mag 1.8; has AICD, correct K and given mg DVT prophylaxis: Lovenox Code status: Full code
--- NOTE | 2021-05-10 12:20 | MHC.CM.PN ---
CM MET WITH PT WHO REPORTS HE LIVES ALONE AND HAS NO SERVICES AND NO ASSISTIVE DEVICES. PT REPORTS HE HAS TRIED HIS FRIENDS NEBULIZER IN THE PAST AND FELT THAT IT HELPED. HE IS HOPEFUL THAT ONE WOULD BE PRESCRIBED. PT ENCOURAGED TO DISCUSS THIS WITH MD. PT REPORTS HIS PCP IS DR WOLFE. PT DOES NOT HAVE A HCP AND DOES NOT WANT TO COMPLETE ONE AT THIS TIME. IMM DELIVERED CURRENT DC PLAN IS HOME WITH NO SERVICES PTS CAR IS IN LOT
[2021-05-10] MEDS: Bumetanide 1 MG/4 ML VIAL 2 MG IVPUSH (13:33)
[2021-05-10] MEDS: Furosemide 200 MG in 0.9 % Sodium Chloride 80 ML IVCONT (14:03)
--- NOTE | 2021-05-10 15:03 | PM.CCPN ---
Subjective Subjective Date of Service: 05/10/21 Interval History: Mr. Sheth is transferred to ICU bec of hypotension. The patient is a 51 yo male with severe nonischemic CMOP and chronic systolic heart failure. He has a history of nonsustained VT. He was admitted to [facility] last month for decompensated heart failure and was diuresed. He was admitted here yesterday with shortness of breath, weight gain, and edema. He says that he felt good when he was discharged from [facility] last month, but within 2 days was short of breath again. He has PND and orthopnea. He tells me that his Lasix dose has recently been increased. His medications at home include furosemide, spironolactone, amiodarone, atorvastatin, Coreg, and losartan. Since admission, Losartan was changed to Entresto. When his BP dropped below 90 this morning, transfer to ICU was requested for pressors. On my exam, he is fully awake but listless. He complained of being SOB, but exhibited no increase in WOB. On room air, Sat was high 80?s. On 4LNC, Sat was 99%. HR 74, SR. BP 89/63. 4cm JVD at 30?. Chest CTA, w normal exp phase. RRR, very soft heart tones, normal S1 and S2, I heard no murmurs or gallops. Abdomen is benign. He has 1+ pretibial edema, no central edema. LABORATORY DATA: As below. Notably, BUN and creatinine are 14/0.8, BNP yesterday was 1542, compared to 820 two mo ago. Chest x-ray shows mildly enlarged cardiac silhouette. No evidence of CHF. ECHOCARDIOGRAM by me at the bedside. Image quality: Fair. Findings: 1. Wall thickness probably normal. 2. LV cavity size top normal. Severe global hypokinesis, with no regional wall motion abnormalities. Ejection fraction approximately 15%. 3. RV normal sized. 4. Aortic valve normal trileaflet, with no AI or . 5. Mitral valve normal architecture with trace MR by color flow. 6. Tricuspid valve normal architecture with 1+ TR by color-flow. Continuous wave Doppler jet measured 2.2 m/sec. Gradient 19mm. 7. Inferior vena cava dilated, measuring 2.6 cm, with about 20% inspiratory collapse. CVP estimated 14 mm. RVSP estimate 33 mm. IMPRESSION: 1. Nonischemic cardiomyopathy. 2. Decompensated heart failure. We will start him on a Lasix drip, with her without Diuril, depending on his urine output. If blood pressure continues low, we will start him on dobutamine. Target BP 90-100 systolic. Follow JVD and BNP. May need advanced heart failure management at [facility]. ? candidate for heart transplant. Critical care time: 60+ min. Critical Care Time (minutes): 60 Physical Exam Vital Signs: Vital Signs: Last Vital Signs Temp 97.9 F 05/10/21 14:09 Pulse 74 05/10/21 14:09 Resp 23 H 05/10/21 14:09 BP 89/63 L 05/10/21 14:09 Pulse Ox 100 05/10/21 14:09 Body Mass Index 33.7 Objective Data Labs CBC & Chem 7: 05/10/21 05:19 05/10/21 05:19 Labs: Laboratory Results - last 24 hr 05/09/21 05/09/21 05/09/21 16:46 16:46 16:46 WBC RBC Hgb Hct MCV MCH MCHC RDW Plt Count MPV Immature Gran % (Auto) Neut % (Auto) Lymph % (Auto) [place] % (Auto) Eos % (Auto) Baso % (Auto) Lymph # (Auto) [place] # (Auto) Eos # (Auto) Baso # (Auto) Abs Immat Gran (auto) Absolute Neuts (auto) Absolute Nucleated RBC Nucleated RBC % (auto) D-Dimer Sodium 143 Potassium 3.6 Chloride 104 Carbon Dioxide 31 H Anion Gap 12 BUN 14 Creatinine 0.88 Estim Creat Clear Calc 112.9 Estimated GFR > 60 Random Glucose 99 Lactic Acid 1.3 Calcium 9.3 D Magnesium 1.8 Total Bilirubin 1.3 H Direct Bilirubin 0.7 H AST 25 ALT 37 Alkaline Phosphatase 108 D Troponin I High Sens B-Natriuretic Peptide Total Protein 6.5 Albumin 3.7 Urine Color Urine Appearance Urine pH Ur Specific [place] Urine Protein Urine Glucose (UA) Urine Ketones Urine Blood Urine Nitrite Ur Leukocyte Esterase COVID-19 ([facility]) Negative COVID-19 Clin Com See Note 05/09/21 05/09/21 05/09/21 17:03 17:03 17:04 WBC 8.3 RBC 4.98 Hgb 14.3 Hct 44.0 MCV 88.4 MCH 28.7 MCHC 32.5 RDW 17.2 H Plt Count 319 MPV 9.8 Immature Gran % (Auto) 0.4 Neut % (Auto) 71.8 Lymph % (Auto) 18.5 L [place] % (Auto) 7.2 Eos % (Auto) 1.1 Baso % (Auto) 1.0 Lymph # (Auto) 1.5 [place] # (Auto) 0.6 Eos # (Auto) 0.1 Baso # (Auto) 0.1 Abs Immat Gran (auto) 0.03 Absolute Neuts (auto) 6.0 Absolute Nucleated RBC 0.000 Nucleated RBC % (auto) 0.0 D-Dimer Sodium Potassium Chloride Carbon Dioxide Anion Gap BUN Creatinine Estim Creat Clear Calc Estimated GFR Random Glucose Lactic Acid Calcium Magnesium Total Bilirubin Direct Bilirubin AST ALT Alkaline Phosphatase Troponin I High Sens B-Natriuretic Peptide 1542 H Total Protein Albumin Urine Color YELLOW Urine Appearance CLEAR Urine pH 7.5 Ur Specific [place] 1.010 Urine Protein NEG Urine Glucose (UA) NEG Urine Ketones NEG Urine Blood NEG Urine Nitrite NEG Ur Leukocyte Esterase NEG COVID-19 ([facility]) COVID-19 [facility] Com 05/09/21 05/09/21 05/09/21 17:04 17:04 19:26 WBC RBC Hgb Hct MCV MCH MCHC RDW Plt Count MPV Immature Gran % (Auto) Neut % (Auto) Lymph % (Auto) [place] % (Auto) Eos % (Auto) Baso % (Auto) Lymph # (Auto) [place] # (Auto) Eos # (Auto) Baso # (Auto) Abs Immat Gran (auto) Absolute Neuts (auto) Absolute Nucleated RBC Nucleated RBC % (auto) D-Dimer 434 Sodium Potassium Chloride Carbon Dioxide Anion Gap BUN Creatinine Estim Creat Clear Calc Estimated GFR Random Glucose Lactic Acid Calcium Magnesium Total Bilirubin Direct Bilirubin AST ALT Alkaline Phosphatase Troponin I High Sens 20.1 17.6 B-Natriuretic Peptide Total Protein Albumin Urine Color Urine Appearance Urine pH Ur Specific [place] Urine Protein Urine Glucose (UA) Urine Ketones Urine Blood Urine Nitrite Ur Leukocyte Esterase COVID-19 ([facility]) COVID-19 [facility] Com 05/10/21 05/10/21 05/10/21 05:19 05:19 05:19 WBC 6.9 RBC 4.61 Hgb 13.1 L Hct 40.5 L MCV 87.9 MCH 28.4 MCHC 32.3 RDW 17.1 H Plt Count 283 MPV 10.1 Immature Gran % (Auto) 0.3 Neut % (Auto) 64.5 Lymph % (Auto) 24.9 [place] % (Auto) 7.4 Eos % (Auto) 1.7 Baso % (Auto) 1.2 Lymph # (Auto) 1.7 [place] # (Auto) 0.5 Eos # (Auto) 0.1 Baso # (Auto) 0.1 Abs Immat Gran (auto) 0.02 Absolute Neuts (auto) 4.5 Absolute Nucleated RBC 0.000 Nucleated RBC % (auto) 0.0 D-Dimer Sodium 142 Potassium 3.1 L Chloride 103 Carbon Dioxide 30 H Anion Gap 12 BUN 14 Creatinine 0.86 Estim Creat Clear Calc 115.5 Estimated GFR > 60 Random Glucose 101 Lactic Acid Calcium 8.5 D Magnesium 1.7 Total Bilirubin Direct Bilirubin AST ALT Alkaline Phosphatase Troponin I High Sens B-Natriuretic Peptide Total Protein Albumin Urine Color Urine Appearance Urine pH Ur Specific [place] Urine Protein Urine Glucose (UA) Urine Ketones Urine Blood Urine Nitrite Ur Leukocyte Esterase COVID-19 ([facility]) COVID-19 Clin Com Critical Care Time Critical Care Time (minutes): 60
[2021-05-10] MEDS: Chlorothiazide Sodium 500 MG VIAL IVPUSH (16:04)
--- NOTE | 2021-05-10 17:03 | PM.EVENT ---
Event Note Date of Service: 05/10/21 Event Note: On echocardiogram, patient noted to have couple of masses attached to ICD lead. This could represent vegetation or thrombus. Discussed with Dr. Singletary to obtain blood cultures from 2 different sites as well as start on parenteral anticoagulation. Will follow with the patient.
[2021-05-10] MEDS: Enoxaparin Sodium 100 MG/ML SYRINGE SUBCUT (17:09)
[2021-05-10 17:38] LABS: C Reactive Protein 1.04 mg/dL (< or = 0.50)
[2021-05-10 18:00] LABS: Procalcitonin 0.05 ng/mL
[2021-05-10 18:12] LABS: Erythrocyte Sedimentation Rate 1 MM/HR (0-15)
[2021-05-10] MEDS: Atorvastatin Calcium 40 MG TABLET PO (20:08)
[2021-05-10] MEDS: Sacubitril/Valsartan 24/26 1 TAB TABLET PO (20:08)
[2021-05-10] MEDS: Sertraline HCL 25 MG TABLET PO (20:08)
[2021-05-10] MEDS: Furosemide 200 MG in 0.9 % Sodium Chloride 80 ML 10 MG IVCONT (23:24)
[2021-05-10] MEDS: Magnesium Sulfate/D5W 1 GM/100 ML PIGGYBACK IV (23:35)
[2021-05-10] MEDS: Potassium Chloride Packet 20 MEQ PACKET 40 MEQ PO (23:35)
[2021-05-11] VITALS (21 sets, daily range): BP systolic 83–103; BP diastolic 58–73; PULSE 61–80; RESP 12–24; TEMP 36.1–37.2; O2SAT 90–97
[2021-05-11] MEDS: Potassium Chloride Packet 20 MEQ PACKET 40 MEQ PO (01:51)
--- NOTE | 2021-05-11 03:42 | PC.NURSE ---
CARE ASSUMED 23:15..AWAKE..ALERT..ORIENTED X3...LASIX DRIP 20 MG/HR..KYLE DRAINING YELLOW URINE...LOWER LEG PITTING EDEMA PRESENT AND STATES ABDOMINAL BLOATING..RESPIRATIONS EASY WITH O2 4 L/M...SAO2 VARIES ASLEEP...HISTORY OF SLEEP APNEA...02:30 C/O CONTINUED DISCOMFORT FROM CATHETER...KYLE CATHETER D/C'D PER PATIENT REQUEST..PA AWARE..OOB TO BEDSIDE COMMODE STEADY GAIT...PASSED [facility] STOOL...PRN PAIN MED FOR C/O CHRONIC BACK PAIN...SBP 80'S-90'S...PA AWARE..PA STATES BP GOAL MAP>60 ...NSR...ISOLATED PVC...1 SHORT RUN NON-SUSTAINED VT...PATIENT HAS AICD AND DAILY AMIODARONE RX AND PMH NSVT.
[2021-05-11] MEDS: Enoxaparin Sodium 100 MG/ML SYRINGE SUBCUT ×2 (05:11→16:07)
[2021-05-11 06:19] LABS: Anion Gap 17 (12-20); Blood Urea Nitrogen 19 mg/dL (9-16); Calcium 8.7 mg/dL (8.4-10.2); Carbon Dioxide 25 mmol/L (22-29); Chloride 99 mmol/L (96-108); Creatinine Clr Calc Pharmacy 84.2; Estimated Glomerular Filt Rate > 60; Glucose Random 108 mg/dL (60-115); Potassium 4.6 mmol/L (3.3-5.1); Sodium 136 mmol/L (135-145)
[2021-05-11 06:20] LABS: Alanine Aminotransferase 27 U/L (0-40); Albumin Level 3.2 g/dL (3.5-5.0); Alkaline Phosphatase 91 U/L (39-117); Aspartate Amino Transferase 21 U/L (5-37); Bilirubin Total 1.6 mg/dL (0.0-1.0); Magnesium 2.1 mg/dL (1.6-2.6); Phosphorus 4.2 mg/dL (2.7-4.5); Total Protein 5.7 g/dL (6.5-8.0)
[2021-05-11 06:26] LABS: B Type Natriuretic Peptide 1202 pg/mL (<100)
[2021-05-11] MEDS: Potassium Chloride ER 20 MEQ TAB.ER.PRT PO ×2 (08:58→20:30)
[2021-05-11] MEDS: 0.9 % Sodium Chloride Flush 3 ML SYRINGE IVFLUSH (08:59)
[2021-05-11] MEDS: Amiodarone HCL 200 MG TABLET PO (08:59)
[2021-05-11] MEDS: Sacubitril/Valsartan 24/26 1 TAB TABLET PO (09:26)
--- NOTE | 2021-05-11 10:10 | P.PNCA_ITS ---
Subjective Subjective Date of Service: 05/11/21 Principal diagnosis: Advanced CHF Interval history: Patient is feeling better. Shortness of breath has improved. Leg edema is also improved. Blood pressure on the softer side. Has diuresed significantly overnight with greater than 5 L negative output. Creatinine is increased slightly. No overnight arrhythmias. Echo shows masses attached to ICD lead. Started on anticoagulation as well as blood cultures were drawn. Review of Systems Constitutional: Reports no additional constitutional complaints Cardiovascular: Denies chest pain, Denies lightheadedness, Denies palpitations and Reports dyspnea on exertion Respiratory: Denies cough and Reports dyspnea on exertion Gastrointestinal: Reports no additional gastrointestinal complaints Reports system reviewed and no additional complaints, except as documented Psychiatric: Reports no additional psychiatric complaints Endocrine: Reports no additional endocrine complaints and Denies palpitations Physical Exam Vital Signs: Last Vital Signs Temp 96.9 F 05/11/21 08:00 Pulse 72 05/11/21 08:59 Resp 14 05/11/21 08:00 BP 95/72 05/11/21 08:59 Pulse Ox 95 05/11/21 08:00 Body Mass Index 33.7 Const General: cooperative, comfortable, no acute distress, alert and awake Nutritional Appearance: average body habitus Orientation/consciousness: patient oriented x3 Neck Neck: Yes trachea midline, Yes supple and Yes JVD Resp Effort & Inspection: normal respiratory effort Auscultation: no rales and diminished lung sounds Cardio Palpation: abnormal PMI displaced PMI Rate: regular rate Rhythm: regular rhythm Heart sounds: S1 normal heart sound present and S2 normal heart sound present Skin General skin exam: no rashes or lesions noted Neuro General: patient oriented x3 and no focal motor deficits Extrem General: No clubbing, No cyanosis and Yes edema Results Labs and Meds Result diagrams: 05/10/21 05:19 05/11/21 05:36 Lab results: Laboratory Results - last 24 hr 05/10/21 05/10/21 05/10/21 17:05 17:05 17:05 ESR 1 Sodium Potassium Chloride Carbon Dioxide Anion Gap BUN Creatinine Estim Creat Clear Calc Estimated GFR Random Glucose Calcium Phosphorus Magnesium Total Bilirubin AST ALT Alkaline Phosphatase C-Reactive Protein 1.04 H B-Natriuretic Peptide Total Protein Albumin Procalcitonin 0.05 05/11/21 05/11/21 05:36 05:36 ESR Sodium 136 Potassium 4.6 D Chloride 99 Carbon Dioxide 25 Anion Gap 17 BUN 19 H Creatinine 1.18 Estim Creat Clear Calc 84.2 Estimated GFR > 60 Random Glucose 108 Calcium 8.7 Phosphorus 4.2 Magnesium 2.1 Total Bilirubin 1.6 H AST 21 ALT 27 Alkaline Phosphatase 91 C-Reactive Protein B-Natriuretic Peptide 1202 H Total Protein 5.7 L Albumin 3.2 L Procalcitonin Progress Note: A&P Assessment and plan (1) Decompensated heart failure: Status: Acute Assessment and Plan: Advanced decompensated congestive heart failure in patient with low blood pressure with reduced tolerance to neurohormonal modulation with multiple recent hospitalization. This is concerning for advancing myocardial dysfunction. However he has and is responding to diuretics. However there is significant over-diuresis at this point time. Will reduce Lasix to 10 mg an hour. More gentle diuresis to maintain adequate stroke volume. Will continue with afterload reduction with Entresto. Continue to trend BNP and BMP. Strict intake and output chart. Okay to be out of bed to chair and ambulate in the unit if possible. Continue full disclosure cardiac monitoring. No clear indication for to be remain drip at this point in time. Eventually will add Jardiance to his regimen (2) Cardiomyopathy: Status: Acute Assessment and Plan: Cardiomyopathy. Advanced nonischemic. Holding carvedilol therapy due to lower blood pressure. Continue Entresto therapy. Also hold Aldactone therapy for now. Once blood pressure improves, will reintroduce carvedilol and Aldactone therapy. May require further advanced heart failure consultation to assess for more mechanical/transplant therapy. There has been issue with compliance in the past. ICD has masses attached to it could represent thrombus given his low stasis state. Continue anticoagulation. Await blood cultures. Will follow with the patient. Fall Risk Details Current Medications: Current Medications Generic Name Dose Route Start Last Admin Trade Name Freq PRN Reason Stop Dose Admin Acetaminophen 650 mg 05/09/21 19:11 Acetaminophen Supp 650 Mg Supp.Rect [place] Q6H PRN Pain, Mild (Pain Scale 1-3) Hydrocodone Bitart/Acetaminophen 1 tab 05/09/21 19:13 05/11/21 09:39 Hydrocodone Bit/Acetam 10/325 Tablet PO 1 tab Q6H PRN Administration pain Albuterol Sulfate 2 puff 05/09/21 19:13 Albuterol Sulfate 90 Mcg 8 Gm Inhaler INHALE Q4H PRN Shortness Of Breath Amiodarone HCl 200 mg 05/10/21 09:00 05/11/21 08:59 Amiodarone Hcl 200 Mg Tablet PO 200 mg DAILY BETTINA Administration Atorvastatin Calcium 40 mg 05/10/21 21:00 05/10/21 20:08 Atorvastatin Calcium 40 Mg Tablet PO 40 mg BEDTIME BETTINA Administration Carvedilol 25 mg 05/09/21 21:00 05/11/21 09:30 Carvedilol 25 Mg Tablet PO Not Given BID [facility] Protocol Enoxaparin Sodium 100 mg 05/10/21 17:00 05/11/21 05:11 Enoxaparin Sodium 100 Mg/Ml Syringe 1 mg/kg (100 mg) 100 mg SUBCUT Administration Q12H BETTINA Guaifenesin 5 ml 05/10/21 09:14 05/10/21 20:07 Guaifenesin 100 Mg/5 Ml Liquid PO 5 ml Q6H PRN Administration Cough Furosemide 200 mg/ Sodium 100 mls @ 5 mls/hr 05/10/21 13:15 05/11/21 09:45 Chloride IVCONT Infused .Q20H BETTINA Infusion 10 MG/HR Dobutamine HCl/Dextrose 1,000 mg in 250 mls @ 0 mls/hr 05/11/21 09:45 Dobutrex IVCONT .Q0M [facility] Protocol Per Protocol Magnesium Hydroxide 30 ml 05/09/21 19:11 Milk Of Magnesia 30 Ml Oral.Susp PO DAILY PRN Constipation Pharmacy Consult 1 each 05/09/21 15:25 Consult Rx Perform Med Rec MISCELLANE ONCE PRN Consult order Potassium Chloride 20 meq 05/10/21 09:00 05/11/21 08:58 Potassium Chloride Er 20 Meq Tab.Er.Prt PO 20 meq BID BETTINA Administration Sacubitril/Valsartan 1 tab 05/10/21 10:30 05/11/21 09:26 Sacubitril/Valsartan 1 Tab Tablet PO 1 tab BID BETTINA Administration Protocol Sertraline HCl 25 mg 05/09/21 21:00 05/10/21 20:08 Sertraline Hcl 25 Mg Tablet PO 25 mg BEDTIME BETTINA Administration Sodium Chloride 3 ml 05/10/21 00:00 05/11/21 08:59 0.9 % Sodium Chloride Flush 3 Ml Syringe IVFLUSH 3 ml QSHIFT BETTINA Administration Time Spent With Patient Time: Total time spent is greater than 50% in coordination of care (as documented) at patient's floor/unit and/or counseling patient: Time with patient: 25 - 35 minutes Procedures Date of Service Date of Service: 05/11/21
[2021-05-11] MEDS: Furosemide 200 MG in 0.9 % Sodium Chloride 80 ML IVCONT (11:22)
--- NOTE | 2021-05-11 12:52 | P.PNCC_ITS ---
Subjective Subjective Date of Service: 05/11/21 Interval History: Mr. Sheth was transferred to ICU yesterday (May 10) bec of hypotension. The patient is a 51 yo male with severe nonischemic CMOP and chronic systolic heart failure. He has a history of nonsustained VT. He was admitted to [facility] last month for decompensated heart failure and was diuresed. He was admitted here yesterday with shortness of breath, weight gain, and edema. He felt good when he was discharged from [facility] last month, but within 2 days was short of breath again. He has PND and orthopnea. His Lasix dose has recently been increased. His medications at home include furosemide, spironolactone, amiodarone, atorvastatin, Coreg, and losartan. Since admission, Losartan was changed to Entresto. When his BP dropped below 90 yesterday, transfer to ICU was requested for pressors. We?ve had him on a Lasix infusion 20mg/hr w diuril since then. He had a tremendous diuresis to that overnight, with -5L fluid balance. But his renal indices bumped, so we cut the Lasix drip to 10mg/hr. On exam today, he is fully awake and a little more animated. We got him OOB to chair. Breathing easy w Sat 97% on 4LNC. HR 60s, SR. BP 95/67. Still has plump JVD at 20?. Chest CTA, w normal exp phase. RRR, very soft heart tones, normal S1 and S2, I heard no murmurs or gallops. Abdomen is benign. He has t race pretibial edema, less than yesterday; no central edema. LABORATORY DATA: As below. Notably, BUN and creatinine are 19/1.1 (was 14/0.8 yesterday), BNP 1202 (was 1542). ECHOCARDIOGRAM by me at the bedside yesterday May 10. Image quality: Fair. Findings: 1. Wall thickness probably normal. 2. LV cavity size top normal. Severe global hypokinesis, with no regional wall motion abnormalities. Ejection fraction approximately 15%. 3. RV normal sized. 4. Aortic valve normal trileaflet, with no AI or . 5. Mitral valve normal architecture with trace MR by color flow. 6. Tricuspid valve normal architecture with 1+ TR by color-flow. Continuous wave Doppler jet measured 2.2 m/sec. Gradient 19mm. 7. Inferior vena cava dilated, measuring 2.6 cm, with about 20% inspiratory collapse. CVP estimated 14 mm. RVSP estimate 33 mm. On the tech?s echo, Dr. Collado saw multiple masses attached to his defibrillator leads, suggestive of either vegetation or thrombus. We therefore anita blood cultures and started him on full dose Lovenox. IMPRESSION: 1. Nonischemic cardiomyopathy. Holding the Coreg bec of low BP. 2. Decompensated heart failure. Dr. Collado does not want to do Dobutamine yet. Continue Lasix and current med mx. Follow BNP. D/W Dr. Collado at length 3. JAKY. 2? diuresis. We backed off to 10mg/hr, and I won?t give him diuril today. Follow indices. 4. Echogenic masses on defib leads. Await BC results. Target BP 90-100 systolic. Follow JVD, edema, and BNP. May need advanced heart failure management at [facility]. ? candidate for heart transplant. Time: 45 min. ([id number]) Critical Care Time (minutes): 0 Physical Exam Vital Signs: Vital Signs: Last Vital Signs Temp 97.2 F 05/11/21 12:00 Pulse 61 05/11/21 12:00 Resp 9 L 05/11/21 12:00 BP 95/67 05/11/21 12:00 Pulse Ox 90 L 05/11/21 12:00 Body Mass Index 33.7 Objective Data Labs CBC & Chem 7: 05/10/21 05:19 05/11/21 05:36 Labs: Laboratory Results - last 24 hr 05/10/21 05/10/21 05/10/21 17:05 17:05 17:05 ESR 1 Sodium Potassium Chloride Carbon Dioxide Anion Gap BUN Creatinine Estim Creat Clear Calc Estimated GFR Random Glucose Calcium Phosphorus Magnesium Total Bilirubin AST ALT Alkaline Phosphatase C-Reactive Protein 1.04 H B-Natriuretic Peptide Total Protein Albumin Procalcitonin 0.05 05/11/21 05/11/21 05:36 05:36 ESR Sodium 136 Potassium 4.6 D Chloride 99 Carbon Dioxide 25 Anion Gap 17 BUN 19 H Creatinine 1.18 Estim Creat Clear Calc 84.2 Estimated GFR > 60 Random Glucose 108 Calcium 8.7 Phosphorus 4.2 Magnesium 2.1 Total Bilirubin 1.6 H AST 21 ALT 27 Alkaline Phosphatase 91 C-Reactive Protein B-Natriuretic Peptide 1202 H Total Protein 5.7 L Albumin 3.2 L Procalcitonin Microbiology Microbiology Results: Microbiology 05/09/21 17:03 Blood - Venous Blood Culture - Preliminary No growth after 24 hours. 05/09/21 16:46 Blood - Venous Blood Culture - Preliminary No growth after 24 hours.
[2021-05-11] MEDS: Atorvastatin Calcium 40 MG TABLET PO (20:30)
[2021-05-11] MEDS: Sertraline HCL 25 MG TABLET PO (20:30)
[2021-05-11] MEDS: guaiFENesin 100 MG/5 ML LIQUID PO (20:40)
[2021-05-12 00:01] VITALS: RESP 20; O2SAT 95
--- NOTE | 2021-05-12 00:17 | P.DS_ITS ---
DS: Providers Provider Date of Service: 05/12/21 Date of admission: 05/09/21 19:11 Primary care physician: Unknown Physician Consults: 05/09/21 19:11 Consult to Cardiology Routine Consulting Provider: Bud Collado Reason for consultation: CHF; NSVT 05/09/21 22:38 Consult Respiratory Therapy Routine Reason for consultation: wears cpap at home most nights DS: Diagnosis Discharge Diagnosis (1) Decompensated heart failure: Status: Acute Problem details: Decompensated CHF Chronic pain syndrome Chronic low back pain Opiate dependence Depression Hyperlipidemia Hypertension (2) Cardiomyopathy: Status: Acute Problem details: nonischemic DS: Medications Discharge Medications Home Medications: Home Medications Medication Instructions Recorded Confirmed atorvastatin 40 mg tablet 40 mg PO QAM 12/26/20 05/09/21 losartan 50 mg tablet 50 mg PO DAILY 12/26/20 05/09/21 albuterol sulfate 2 puff INHALATION Q4-6H PRN 05/09/21 05/09/21 amiodarone 200 mg PO DAILY 05/09/21 05/09/21 furosemide 20 mg tablet 20 mg PO DAILY tab 05/09/21 05/09/21 hydrocodone 10 mg-acetaminophen 1 tab PO Q4-6H PRN 05/09/21 05/09/21 325 mg tablet sertraline 25 mg tablet 25 mg PO QPM 05/09/21 05/09/21 Previous Rx's Medication Instructions Recorded carvedilol 25 mg tablet 25 mg PO BID #180 tab 02/16/21 spironolactone 25 mg tablet 12.5 mg PO DAILY 90 Days #45 tab 05/10/21 DS: Summary Time Spent with Patient Time attestation: Total time spent providing and/or coordinating discharge services: Discharge coordination time: Less than 30 minutes Quality: Stroke Does the patient have a stroke diagnosis?: No Physical Exam Vital Signs: Vital Signs: Last Vital Signs Temp 97.6 F 05/11/21 20:00 Pulse 75 05/11/21 23:00 Resp 20 05/12/21 00:01 BP 83/58 L 05/11/21 23:00 Pulse Ox 92 05/11/21 22:00 Body Mass Index 33.7 DS: Data Data Completed and Pending Labs on day of discharge: Laboratory Results - last 24 hr 05/11/21 05/11/21 05:36 05:36 Sodium 136 Potassium 4.6 D Chloride 99 Carbon Dioxide 25 Anion Gap 17 BUN 19 H Creatinine 1.18 Estim Creat Clear Calc 84.2 Estimated GFR > 60 Random Glucose 108 Calcium 8.7 Phosphorus 4.2 Magnesium 2.1 Total Bilirubin 1.6 H AST 21 ALT 27 Alkaline Phosphatase 91 B-Natriuretic Peptide 1202 H Total Protein 5.7 L Albumin 3.2 L Preliminary micro results at discharge 05/10/21 17:05 Blood Culture - Preliminary Blood - Venous No growth after 24 hours. 05/10/21 17:05 Blood Culture - Preliminary Blood - Venous No growth after 24 hours. 05/09/21 17:03 Blood Culture - Preliminary Blood - Venous No growth after 48 hours. 05/09/21 16:46 Blood Culture - Preliminary Blood - Venous No growth after 48 hours. Discharge Plan Discharge Anticipated Discharge Date/Time: 05/12/21 00:13 Patient Disposition: Left Against Medical Advice Discharge Diagnosis: Decompensated CHF Referrals: Physician,Unknown [Primary Care Provider] - 1 Week (See Dr Tate at [facility] on 05/15/21) Discharge Medications: Continued carvedilol 25 mg tablet 25 mg PO BID Qty: 180 RF: 1 spironolactone 25 mg tablet 12.5 mg PO DAILY 90 Days Qty: 45 RF: 1 albuterol sulfate 90 mcg/actuation HFA aerosol inhaler 2 puff inhalation Q4-6H PRN (Reason: Shortness Of Breath) RF: 0 amiodarone 200 mg tablet 200 mg PO DAILY RF: 0 atorvastatin 40 mg tablet 40 mg PO QAM RF: 0 losartan 50 mg tablet 50 mg PO DAILY RF: 0 sertraline 25 mg tablet 25 mg PO QPM RF: 0 hydrocodone-acetaminophen 10-325 mg tablet 1 tab PO Q4-6H PRN (Reason: pain) RF: 0 Discontinued furosemide [Lasix] 20 mg tablet 20 mg PO DAILY RF: 0 Discharge Orders: Discharge Order (Routine); Ordered 05/12/21 Ordered By: Js Jules Diet: low salt diet Activity on Discharge: As tolerated Care Plan Goals: See your PCP by Friday TAKE LASIX 20 MG ONE TAB TWICE PER DAY Health Concerns: YOU UNDERSTAND THAT YOU ARE LEAVING AGAINST MEDICAL ADVICE, SEVERAL PEOPLE INCLUDING TO NURSES, CHARGE NURSE AND MYSELF TALK TO YOU ABOUT THE RISKS OF DOING SO ALL WHICH MAY LEAD TO WORSENING HEART FAILURE, SHORTNESS OF BREATH, CARDIAC ARREST AND . DESPITE OF ALL THE ABOVE, YOU HAVE DECIDED TO LEAVE AGAINST MEDICAL ADVICE. Plan of Treatment: YOU ARE BEING DISCHARGED AGAINST MEDICAL ADVICE, YOU UNDERSTAND THE RISK OF IT MENTIONED ABOVE, YOU MAY SEE YOUR PRIMARY CARE PHYSICIAN 1ST THING IN THE MORNING ON FRIDAY THIS UPCOMING WEEK MAY 15, 2021 CONTINUE WITH ALL OF YOUR MEDICATIONS SINCE YOU WERE PRESCRIBED LASIX BY YOUR PRIMARY CARE PHYSICIAN, WE RECOMMEND YOU TAKING 20 MG 2 TIMES PER DAY UNTIL YOU SEE YOUR PRIMARY CARE PHYSICIAN Assessment: ABOVE Patient Instructions: Heart Failure (DC)
--- NOTE | 2021-05-12 00:21 | PC.NURSE ---
pt awake. states that he wants to leave [facility]. he will sign [facility] forms to hasten his departure. please note pt is fully awake and making clear lucid statements he states that he can not get a hold of his mother and has to leave. with great effort and articulation pt informed that his departure from the hospital could lead to his d/t resp and cardiac complications. pt verbalizes an understanding of this information. pt also informed that he could suffer severe complications which may injure him d/t his premature release from the hospital. giuseppe weiss spoke at length with pt informing him of the great dangers of leaving the hosptal now. again, pt informed that leaving the hospital could lead to his or serious injury. pt again states that he understands these concerns but must leave now. cistern room working supervisor ursula brooke notified of incident. iv lines removed. pt placed in wheelchair and transported to emergency room waiting area where he walked out the front door.
== END 2021-05-12 00:27 | disposition left against medical advice (07) | DRG 292 ==
LOC: HO.ED 17:26 → HO.EDOVER 19:27 → HO.IMC 19:46 → HO.ICU 05-10 12:46
PROVIDERS: Physician Assistant; Admitting Provider Hospitalist; Emergency Provider Emergency Medicine; Visit Provider Anesthesiology
DX: I11.0 Hypertensive heart disease with heart failure (principal); I47.1 Supraventricular tachycardia; N17.9 Acute kidney failure, unspecified; E78.5 Hyperlipidemia, unspecified; I42.8 Other cardiomyopathies; I50.23 Acute on chronic systolic (congestive) heart failure; G89.4 Chronic pain syndrome; M54.5 Low back pain; G47.33 Obstructive sleep apnea (adult) (pediatric); Z20.822 Contact with and (suspected) exposure to COVID-19; Z95.810 Presence of automatic (implantable) cardiac defibrillator; Z79.891 Long term (current) use of opiate analgesic; Z79.899 Other long term (current) drug therapy
CPT/HCPCS: 36415; 71045; 71275; 80048; 80053; 80076; 81003; 83605; 83735; 83880; 84100; 84145; 84484; 85025; 85379; 85652; 86140; 87040; 87635; 93005; 93306; 93970; 94660; 99212; 99284; J1205; J1650; J1940; J3475; Q9967

== ENCOUNTER 2021-06-13 23:32 | Inpatient (IN) | payer MEDICARE, MEDICAID, SELFPAY ==
--- NOTE | ~2021-06-13 | XR_ITS ---
EXAMINATION: XR CHEST CLINICAL INFORMATION: Chest pain COMPARISON: CT angiogram chest 05/09/2021 and radiograph chest 05/09/2021 TECHNIQUE: Frontal view of the chest was obtained. FINDINGS: Once again seen is mild cardiomegaly and a unipolar pacer/defibrillator with its tip at the right ventricular apex. No infiltrates effusions or lung masses are seen. No evidence of CHF. XR/XR chest 1V IMPRESSION: Cardiomegaly. No acute intrathoracic disease
[2021-06-13 23:39] VITALS: BP 126/95; PULSE 110; RESP 26; TEMP 35.8; O2SAT 99; BMI 35.5
--- NOTE | 2021-06-13 23:59 | ECG_ITS ---
Test Reason : CHEST PAIN Blood Pressure : / mmHG Vent. Rate : 104 BPM Atrial Rate : 104 BPM P-R Int : 152 ms QRS Dur : 088 ms QT Int : 372 ms P-R-T Axes : 058 -33 124 degrees QTc Int : 489 ms Sinus tachycardia Possible Left atrial enlargement Left axis deviation Septal infarct , age undetermined ST & T wave abnormality, consider lateral ischemia Abnormal ECG When compared with ECG of 09-MAY-2021 17:39, No significant change was found Referred By: Ning Muniz Electronically Signed By:Macario Thacker
[2021-06-14] VITALS (10 sets, daily range): BP systolic 80–133; BP diastolic 60–102; PULSE 62–107; RESP 18–29; TEMP 36.2–36.4; O2SAT 90–97; BMI 33.9
--- NOTE | 2021-06-14 00:09 | ED_ITS ---
HPI - Chest Pain General Chief Complaint: Chest Pain Stated Complaint: chest pain, feet swollen, has pacemaker Time Seen by Provider: 06/13/21 23:58 Source: patient and family Mode of arrival: ambulatory History of Present Illness HPI narrative: This is a 51-year-old male with extensive cardiac history who presents with chest pressure, nonradiating, 07/10, that started at approximately 9:00 p.m. without associated fever, chills, but has had a cough without sore throat and describes increasing shortness of breath and otherwise denies any GI or symptoms. Patient states he has also had mild dizziness, but states he has been taking his medications as prescribed. He denies alcohol or drug use and states that he did sign out AMA from the ICU. Related Data Home Medications Medication Instructions Recorded Confirmed atorvastatin 40 mg tablet 40 mg PO QAM 12/26/20 05/09/21 losartan 50 mg tablet 50 mg PO DAILY 12/26/20 05/09/21 albuterol sulfate 2 puff INHALATION Q4-6H PRN 05/09/21 05/09/21 amiodarone 200 mg PO DAILY 05/09/21 05/09/21 furosemide 20 mg tablet 20 mg PO DAILY tab 05/09/21 05/09/21 hydrocodone 10 mg-acetaminophen 1 tab PO Q4-6H PRN 05/09/21 05/09/21 325 mg tablet sertraline 25 mg tablet 25 mg PO QPM 05/09/21 05/09/21 Previous Rx's Medication Instructions Recorded carvedilol 25 mg tablet 25 mg PO BID #180 tab 02/16/21 spironolactone 25 mg tablet 12.5 mg PO DAILY 90 Days #45 tab 05/10/21 Allergies Allergy/AdvReac Type Severity Reaction Status Date / Time No Known Allergies Allergy Verified 12/25/20 08:26 Review of Systems Review of Systems: Pertinent positives and negatives as stated in HPI 10 point review of systems is otherwise negative. REPLACED BY [facility] Past Medical History Source: nursing notes reviewed Medical History Artificial cardiac pacemaker Back injuries Cardiomyopathy Chronic systolic HF (heart failure) HTN (hypertension) ICD (implantable cardioverter-defibrillator) in place Surgical History Hx of cardiac cath (~08/2015) Family History Family History Father Prostate cancer Mother No problems noted. Social History Social History Household Members: None Housing: Apartment Do you presently have visiting nurse or other home services: No Patient Tobacco Use Status: Current everyday Tobacco user Tobacco use type: Cigarette Cigarettes Per Day: 5 Advance Directives: No Advance Directives Information Provided: No service: No Current occupational status: disabled Physical Exam Vital Signs: Vital Signs: Last Vital Signs Temp 97.6 F 06/14/21 02:17 Pulse 107 H 06/14/21 04:10 Resp 25 H 06/14/21 04:10 BP 133/102 H 06/14/21 04:10 Pulse Ox 93 06/14/21 04:10 Body Mass Index 35.5 VITAL SIGNS: Reviewed. GENERAL: Well developed, chronically ill, mild distress. HEAD: Normocephalic/atraumatic EYES: PERRLA, EOMI EARS: Ext canals without abnormality OROPHARYNX: no oral lesions noted, posterior pharynx clear, dry mucosa NECK: Supple, no adenopathy LUNGS: Rales, tachypnea, no expiratory wheeze appreciated. SpO2<93> CARDIOVASCULAR: Regular rate and rhythm without noted murmurs, no JVD 2+ bilateral lower extremity edema. ABDOMEN: Obese, Soft, non-tender, non-distended with bowel sounds. SKIN: Inspection of the skin reveals no rashes NEUROLOGIC: Alert and oriented x 4. Strength and sensation to light touch were grossly intact x 4. Course Course Course Narrative: 51-year-old male with history and clinical presentation concerning for possible cardiopulmonary etiology and less likely MSK. On review of all investigations findings consistent with CHF exacerbation and patient received IV Lasix and this case was discussed with the inpatient hospitalist who is agreeable for admission. MDM - Chest Pain Lab Data Result diagrams: 06/14/21 00:28 06/14/21 00:28 Labs: Lab Results 06/14/21 06/14/21 06/14/21 Range/Units 00:27 00:28 00:28 WBC 10.2 (4.8-10.8) X10*3/uL RBC 5.09 (4.60-5.80) X10*6/uL Hgb 14.6 (14.0-18.0) g/dl Hct 44.4 (42-52) % MCV 87.2 (80-98) fL MCH 28.7 (27.0-33.0) pg MCHC 32.9 (31.0-36.0) g/dl RDW 19.9 H (11.0-16.0) % Plt Count 344 (160-400) X10*3/uL MPV 9.5 (9.4-12.4) fL Immature Gran % (Auto) 0.6 H (0.0-0.4) % Neut % (Auto) 66.9 (45-73) % Lymph % (Auto) 22.9 (20-40) % Reeves % (Auto) 6.8 (2-11) % Eos % (Auto) 1.6 (0-4) % Baso % (Auto) 1.2 (0-2) % Lymph # (Auto) 2.3 (1.2-4.9) X10*3/uL Reeves # (Auto) 0.7 (0.1-1.2) X10*3/uL Eos # (Auto) 0.2 (0.0-0.4) X10*3/uL Baso # (Auto) 0.1 (0.0-0.2) X10*3/uL Abs Immat Gran (auto) 0.06 H (0.00-0.03) X10*3/uL Absolute Neuts (auto) 6.8 (2.0-8.3) X10*3/uL Absolute Nucleated RBC 0.000 (0.0-0.012) X10*3/uL Nucleated RBC % (auto) 0.0 (0.0-0.2) /100WBC PT 16.7 H (9.9-13.0) SEC INR 1.5 H (0.9-1.1) Sodium (135-145) mmol/L Potassium (3.3-5.1) mmol/L Chloride (96-108) mmol/L Carbon Dioxide (22-29) mmol/L Anion Gap (12-20) BUN (9-16) mg/dL Creatinine (0.5-1.4) mg/dL Estim Creat Clear Calc Estimated GFR Random Glucose (60-115) mg/dL Calcium (8.4-10.2) mg/dL Total Bilirubin (0.0-1.0) mg/dL AST (5-37) U/L ALT (0-40) U/L Alkaline Phosphatase (39-117) U/L Troponin I High Sens 17.1 (<3.5-35.0) ng/L B-Natriuretic Peptide 1664 H (<100) pg/mL Total Protein (6.5-8.0) g/dL Albumin (3.5-5.0) g/dL Lipase (8-78) U/L Urine Color Urine Appearance Urine pH (5.0-8.0) Ur Specific [place] (1.005-1.025) Urine Protein (NEG-TRACE) MG/DL Urine Glucose (UA) (NEG) MG/DL Urine Ketones (NEG) MG/DL Urine Blood (NEG) Urine Nitrite (NEG) Ur Leukocyte Esterase (NEG) Urine Opiates Screen (Not Detect) Ur Barbiturates Screen (Not Detect) Ur Phencyclidine Scrn (Not Detect) Ur Amphetamines Screen (Not Detect) U Benzodiazepines Scrn (Not Detect) Urine Cocaine Screen (Not Detect) U Marijuana (THC) Screen (Not Detect) Ethyl Alcohol mg/dL COVID-19 ([facility]) (Negative) COVID-19 Clin Com 06/14/21 06/14/21 06/14/21 Range/Units 00:28 00:28 00:31 WBC (4.8-10.8) X10*3/uL RBC (4.60-5.80) X10*6/uL Hgb (14.0-18.0) g/dl Hct (42-52) % MCV (80-98) fL MCH (27.0-33.0) pg MCHC (31.0-36.0) g/dl RDW (11.0-16.0) % Plt Count (160-400) X10*3/uL MPV (9.4-12.4) fL Immature Gran % (Auto) (0.0-0.4) % Neut % (Auto) (45-73) % Lymph % (Auto) (20-40) % [place]eves % (Auto) (2-11) % Eos % (Auto) (0-4) % Baso % (Auto) (0-2) % Lymph # (Auto) (1.2-4.9) X10*3/uL [place] # (Auto) (0.1-1.2) X10*3/uL Eos # (Auto) (0.0-0.4) X10*3/uL Baso # (Auto) (0.0-0.2) X10*3/uL Abs Immat Gran (auto) (0.00-0.03) X10*3/uL Absolute Neuts (auto) (2.0-8.3) X10*3/uL Absolute Nucleated RBC (0.0-0.012) X10*3/uL Nucleated RBC % (auto) (0.0-0.2) /100WBC PT (9.9-13.0) SEC INR (0.9-1.1) Sodium 139 (135-145) mmol/L Potassium 3.4 D (3.3-5.1) mmol/L Chloride 102 (96-108) mmol/L Carbon Dioxide 27 (22-29) mmol/L Anion Gap 13 (12-20) BUN 14 (9-16) mg/dL Creatinine 1.18 (0.5-1.4) mg/dL Estim Creat Clear Calc 80.9 Estimated GFR > 60 Random Glucose 106 (60-115) mg/dL Calcium 9.0 (8.4-10.2) mg/dL Total Bilirubin 1.9 H (0.0-1.0) mg/dL AST 16 (5-37) U/L ALT 11 (0-40) U/L Alkaline Phosphatase 93 (39-117) U/L Troponin I High Sens (<3.5-35.0) ng/L B-Natriuretic Peptide (<100) pg/mL Total Protein 6.5 (6.5-8.0) g/dL Albumin 3.6 (3.5-5.0) g/dL Lipase 25 (8-78) U/L Urine Color Urine Appearance Urine pH (5.0-8.0) Ur Specific [place] (1.005-1.025) Urine Protein (NEG-TRACE) MG/DL Urine Glucose (UA) (NEG) MG/DL Urine Ketones (NEG) MG/DL Urine Blood (NEG) Urine Nitrite (NEG) Ur Leukocyte Esterase (NEG) Urine Opiates Screen (Not Detect) Ur Barbiturates Screen (Not Detect) Ur Phencyclidine Scrn (Not Detect) Ur Amphetamines Screen (Not Detect) U Benzodiazepines Scrn (Not Detect) Urine Cocaine Screen (Not Detect) U Marijuana (THC) Screen (Not Detect) Ethyl Alcohol < 10 mg/dL COVID-19 ([facility]) Negative (Negative) COVID-19 Clin Com See Note 06/14/21 06/14/21 06/14/21 Range/Units 02:57 02:57 03:42 WBC (4.8-10.8) X10*3/uL RBC (4.60-5.80) X10*6/uL Hgb (14.0-18.0) g/dl Hct (42-52) % MCV (80-98) fL MCH (27.0-33.0) pg MCHC (31.0-36.0) g/dl RDW (11.0-16.0) % Plt Count (160-400) X10*3/uL MPV (9.4-12.4) fL Immature Gran % (Auto) (0.0-0.4) % Neut % (Auto) (45-73) % Lymph % (Auto) (20-40) % Reeves % (Auto) (2-11) % Eos % (Auto) (0-4) % Baso % (Auto) (0-2) % Lymph # (Auto) (1.2-4.9) X10*3/uL [place] # (Auto) (0.1-1.2) X10*3/uL Eos # (Auto) (0.0-0.4) X10*3/uL Baso # (Auto) (0.0-0.2) X10*3/uL Abs Immat Gran (auto) (0.00-0.03) X10*3/uL Absolute Neuts (auto) (2.0-8.3) X10*3/uL Absolute Nucleated RBC (0.0-0.012) X10*3/uL Nucleated RBC % (auto) (0.0-0.2) /100WBC PT (9.9-13.0) SEC INR (0.9-1.1) Sodium (135-145) mmol/L Potassium (3.3-5.1) mmol/L Chloride (96-108) mmol/L Carbon Dioxide (22-29) mmol/L Anion Gap (12-20) BUN (9-16) mg/dL Creatinine (0.5-1.4) mg/dL Estim Creat Clear Calc Estimated GFR Random Glucose (60-115) mg/dL Calcium (8.4-10.2) mg/dL Total Bilirubin (0.0-1.0) mg/dL AST (5-37) U/L ALT (0-40) U/L Alkaline Phosphatase (39-117) U/L Troponin I High Sens 14.8 (<3.5-35.0) ng/L B-Natriuretic Peptide (<100) pg/mL Total Protein (6.5-8.0) g/dL Albumin (3.5-5.0) g/dL Lipase (8-78) U/L Urine Color YELLOW Urine Appearance CLEAR Urine pH 6.0 (5.0-8.0) Ur Specific [place] 1.010 (1.005-1.025) Urine Protein NEG (NEG-TRACE) MG/DL Urine Glucose (UA) NEG (NEG) MG/DL Urine Ketones NEG (NEG) MG/DL Urine Blood NEG (NEG) Urine Nitrite NEG (NEG) Ur Leukocyte Esterase NEG (NEG) Urine Opiates Screen POSITIVE H (Not Detect) Ur Barbiturates Screen Not Detected (Not Detect) Ur Phencyclidine Scrn Not Detected (Not Detect) Ur Amphetamines Screen Not Detected (Not Detect) U Benzodiazepines Scrn Not Detected (Not Detect) Urine Cocaine Screen Not Detected (Not Detect) U Marijuana (THC) Screen Not Detected (Not Detect) Ethyl Alcohol mg/dL COVID-19 ([facility]) (Negative) COVID-19 Clin Com ECG Data ECG #1: Attestation: I personally reviewed and interpreted this ECG as follows: Prior ECG tracings: available for review (05/09/2021 no acute changes on comparison) Interpretation: Sinus tachycardia, HR-104, no evidence of acute ischemia when compared to prior, NE/QRS/QTC are within normal limits. Discharge Plan Discharge Clinical Impression: CHF exacerbation Patient Disposition: Admitted As Inpatient Prescriptions: No Action carvedilol 25 mg tablet 25 mg PO BID Qty: 180 RF: 1 spironolactone 25 mg tablet 12.5 mg PO DAILY 90 Days Qty: 45 RF: 1 albuterol sulfate 90 mcg/actuation HFA aerosol inhaler 2 puff inhalation Q4-6H PRN (Reason: Shortness Of Breath) RF: 0 amiodarone 200 mg tablet 200 mg PO DAILY RF: 0 atorvastatin 40 mg tablet 40 mg PO QAM RF: 0 losartan 50 mg tablet 50 mg PO DAILY RF: 0 furosemide [Lasix] 20 mg tablet 20 mg PO DAILY RF: 0 sertraline 25 mg tablet 25 mg PO QPM RF: 0 hydrocodone-acetaminophen 10-325 mg tablet 1 tab PO Q4-6H PRN (Reason: pain) RF: 0
[2021-06-14 00:35] LABS: MANUAL DIFF FLAG NO
[2021-06-14 00:38] LABS: Basophils Absolute Auto 0.1 X10*3/uL (0.0-0.2); Basophils Percent Auto 1.2 % (0-2); Eosinophils Absolute Auto 0.2 X10*3/uL (0.0-0.4); Eosinophils Percent Auto 1.6 % (0-4); Hematocrit 44.4 % (42-52); Hemoglobin 14.6 g/dl (14.0-18.0); Imm Gran Abs Auto 0.06 X10*3/uL (0.00-0.03); Imm Gran Pct Auto 0.6 % (0.0-0.4); Lymphocytes Absolute Auto 2.3 X10*3/uL (1.2-4.9); Lymphocytes Percent Auto 22.9 % (20-40); Mean Corpuscular HGB Conc 32.9 g/dl (31.0-36.0); Mean Corpuscular Hemoglobin 28.7 pg (27.0-33.0); Mean Corpuscular Volume 87.2 fL (80-98); Mean Platelet Volume 9.5 fL (9.4-12.4); Monocytes Absolute Auto 0.7 X10*3/uL (0.1-1.2); Monocytes Percent Auto 6.8 % (2-11); Neutrophils Absolute Auto 6.8 X10*3/uL (2.0-8.3); Neutrophils Percent Auto 66.9 % (45-73); Platelet Count 344 X10*3/uL (160-400); Red Blood Count 5.09 X10*6/uL (4.60-5.80); Red Cell Distribution Width 19.9 % (11.0-16.0); White Blood Count 10.2 X10*3/uL (4.8-10.8)
[2021-06-14 00:46] LABS: INTERNATIONAL NORM RATIO 1.5 (0.9-1.1); Prothrombin Time 16.7 SEC (9.9-13.0)
[2021-06-14 00:51] LABS: COVID-19 Test Negative (Negative); IDNOW Serial# 9DD0AD1C
[2021-06-14 00:59] LABS: Ethanol < 10 mg/dL
[2021-06-14 01:02] LABS: Alanine Aminotransferase 11 U/L (0-40); Albumin Level 3.6 g/dL (3.5-5.0); Alkaline Phosphatase 93 U/L (39-117); Anion Gap 13 (12-20); Aspartate Amino Transferase 16 U/L (5-37); Bilirubin Total 1.9 mg/dL (0.0-1.0); Blood Urea Nitrogen 14 mg/dL (9-16); Carbon Dioxide 27 mmol/L (22-29); Chloride 102 mmol/L (96-108); Creatinine Clr Calc Pharmacy 80.9; Estimated Glomerular Filt Rate > 60; Glucose Random 106 mg/dL (60-115); Lipase 25 U/L (8-78); Potassium 3.4 mmol/L (3.3-5.1); Sodium 139 mmol/L (135-145); Total Protein 6.5 g/dL (6.5-8.0)
[2021-06-14 01:06] LABS: B Type Natriuretic Peptide 1664 pg/mL (<100); Troponin-I High Sensitivity 17.1 ng/L (<3.5-35.0)
[2021-06-14] MEDS: Acetaminophen 325 MG TABLET 650 MG PO (02:34)
[2021-06-14] MEDS: Furosemide 100 MG/10 ML VIAL 80 MG IVPUSH (02:45)
[2021-06-14 03:06] LABS: Appearance Urine CLEAR; Color Urine YELLOW; Glucose Urine UA NEG (NEG); Leukocyte Esterase Urine NEG (NEG); Nitrite Urine NEG (NEG); Urine Blood NEG (NEG); Urine Ketones NEG (NEG); Urine Protein NEG (NEG-TRACE)
[2021-06-14 03:33] LABS: Amphetamine Screen Urine Not Detected (Not Detect); Barbiturates, Urine Not Detected (Not Detect); Benzodiazepines Screen Urine Not Detected (Not Detect); Cannabinoid Screen Urine Not Detected (Not Detect); Cocaine Screen Urine Not Detected (Not Detect); Opiate Screen Urine POSITIVE (Not Detect); Phencyclidine Screen Urine Not Detected (Not Detect)
[2021-06-14 04:10] LABS: Troponin-I High Sensitivity 14.8 ng/L (<3.5-35.0)
--- NOTE | 2021-06-14 05:19 | PC.NURSE ---
Pt complains of intermittent cough (COVID negative) with chest pain that has decreased since arrival. Hx multiple cardiac problems. Aware of plan to admit for CHF exacerbation/cardiomegaly. Will continue to monitor.
--- NOTE | 2021-06-14 05:20 | PC.NURSE ---
Urine output 2,000ml of clear yellow urine. Will continue to monitor.
--- NOTE | 2021-06-14 06:03 | PM.IMHP ---
History of Present Illness Date of Service: 06/14/21 Chief Complaint: Shortness of breath, chest pain This is a 51-year-old male with history of CHF with reduced ejection fraction of 20-25%, HTN, AICD, in SVT, who presents to the hospital with complaints of shortness of breath and chest pain. Patient reports that he was here in May for CHF exacerbation but left against medical advice, he continued to have shortness of breath throughout this time but has worsened over the past few days. Patient also reports orthopnea PND, lower extremity edema. Reports cough with minimal sputum production, no fever or chills. In regards to his chest pain, pain is localized to the left side, feels like someone is pressing on his chest, has been constant since 9:00 p.m., he has had previous episodes were they will radiating to his left arm, today's pain is nonradiating, severe discomfort. Patient reports that he was sent home with Lasix 20 mg daily with 20 mg p.r.n. for 3 or more lb of weight gain therefore he was taking 40 mg daily with no improvement of his shortness of breath or lower extremity edema. He denies any headache, change in vision, no abdominal pain nausea or vomiting, no diarrhea constipation, no urinary symptoms. No numbness or tingling. On arrival to the ED patient vitals significant for temp of 96.5?, heart rate of 110, respiratory rate of 26, blood pressure 126/95, satting 99% on room air Labs are significant for WBC count of 10.2, PT of 16.7, INR of 1.5, BUN of 14, creatinine of 1.18 with a previous baseline of 0.8, 1664. Troponin of 17 with a repeat of 14.8 EKG shows sinus tachycardia with no significant changes suggestive of ACS Chest x-ray shows cephalization with no evidence of pleural effusion on my read Past medical history as below line confirmed with patient Review of Systems Review of Systems: Yes all other systems are reviewed and are negative ON LICENSE OF [facility] Medical History Artificial cardiac pacemaker Back injuries Cardiomyopathy Chronic systolic HF (heart failure) HTN (hypertension) ICD (implantable cardioverter-defibrillator) in place Family History Father Prostate cancer Mother No problems noted. Surgical History Hx of cardiac cath (~08/2015) Social History Household Members: None Housing: Apartment Do you presently have visiting nurse or other home services: No Patient Tobacco Use Status: Current everyday Tobacco user Tobacco use type: Cigarette Cigarettes Per Day: 5 Advance Directives: No Advance Directives Information Provided: No service: No Current occupational status: disabled Meds Allergies Allergy/AdvReac Type Severity Reaction Status Date / Time No Known Allergies Allergy Verified 06/14/21 05:16 Active Medications: Current Medications Generic Name Dose Route Start Last Admin Trade Name Freq PRN Reason Stop Dose Admin Acetaminophen 650 mg 06/14/21 05:36 Acetaminophen 325 Mg Tablet PO Q6H PRN Pain, Mild (Pain Scale 1-3) Hydrocodone Bitart/Acetaminophen 1 tab 06/14/21 05:36 Hydrocodone Bit/Acetam 10/325 Tablet PO Q4H PRN pain Albuterol Sulfate 2 puff 06/14/21 05:36 06/14/21 06:00 Albuterol Sulfate 90 Mcg 8 Gm Inhaler INHALE Not Given Q4H [facility] Amiodarone HCl 200 mg 06/14/21 09:00 Amiodarone Hcl 200 Mg Tablet PO DAILY [facility] Atorvastatin Calcium 40 mg 06/14/21 09:00 Atorvastatin Calcium 40 Mg Tablet PO DAILY [facility] Carvedilol 25 mg 06/14/21 09:00 Carvedilol 25 Mg Tablet PO BID [facility] Protocol Docusate Sodium 100 mg 06/14/21 05:36 Docusate Sodium 100 Mg Capsule PO DAILY PRN Constipation Enoxaparin Sodium 40 mg 06/14/21 06:00 Enoxaparin Sodium 40 Mg/0.4 Ml Syringe SUBCUT Q24H [facility] Furosemide 40 mg 06/14/21 14:00 Furosemide 40 Mg/4 Ml Vial IVPUSH Q12H [facility] Protocol Losartan Potassium 50 mg 06/14/21 09:00 Losartan Potassium 50 Mg Tablet PO DAILY [facility] Protocol Morphine Sulfate 4 mg 06/14/21 05:36 Morphine Sulfate 4 Mg/Ml Cartridge IVPUSH Q4H PRN Pain, Severe (Pain Scale 7-10) Ondansetron HCl 4 mg 06/14/21 05:36 Ondansetron Hcl 4 Mg/2 Ml Vial IVPUSH Q8H PRN Nausea and Vomiting Sertraline HCl 25 mg 06/14/21 21:00 Sertraline Hcl 25 Mg Tablet PO BEDTIME [facility] Sodium Chloride 3 ml 06/14/21 08:00 0.9 % Sodium Chloride Flush 3 Ml Syringe IVFLUSH QSHIFT [facility] Spironolactone 12.5 mg 06/14/21 09:00 Spironolactone 25 Mg Tablet PO DAILY [facility] Protocol Home Medications Medication Instructions Recorded Confirmed Last Taken Type albuterol sulfate 2 puff INHALATION Q4-6H 06/14/21 06/14/21 06/13/21 History amiodarone 1 tab PO QAM 06/14/21 06/14/21 06/13/21 History atorvastatin 1 tab PO QAM 06/14/21 06/14/21 06/13/21 History carvedilol 1 tab PO BID 06/14/21 06/14/21 06/13/21 History diclofenac sodium 2 g TOPICAL QID PRN 06/14/21 06/14/21 06/13/21 History furosemide 20 - 40 mg PO DAILY 06/14/21 06/14/21 06/13/21 History hydrocodone-acetaminophen 1 tab PO Q4-6H PRN 06/14/21 06/14/21 06/13/21 History losartan 1 tab PO QAM 06/14/21 06/14/21 06/13/21 History sertraline 1 tab PO QPM 06/14/21 06/14/21 06/13/21 History sildenafil [Viagra] 0.5 tab PO DAILY PRN 06/14/21 06/14/21 06/13/21 History spironolactone 0.5 tab PO QAM 06/14/21 06/14/21 06/13/21 History Physical Exam Vital Signs and Narrative: Vital Signs: Last Vital Signs Temp 97.6 F 06/14/21 02:17 Pulse 103 H 06/14/21 05:57 Resp 20 06/14/21 05:57 BP 128/86 06/14/21 05:57 Pulse Ox 93 06/14/21 05:57 Body Mass Index 35.5 Const: General: cooperative and no acute distress Orientation/consciousness: patient oriented x3 Eyes: General: appearance normal, both eyes and all related structures Resp: Other: Which crackles bilaterally Effort & Inspection: normal respiratory effort and able to speak in complete sentences Cardio: Rate: regular rate Rhythm: regular rhythm GI: Palpation (GI): Soft to palpation Auscultation: normal bowel sounds Skin: General skin exam: no rashes or lesions noted Neuro: General: patient oriented x3 Cognition (Neuro): normal cognition Extrem: Other: 1+ pedal edema bilaterally General: Yes normal to inspection Results Labs CBC and Chem 7: 06/14/21 00:28 06/14/21 00:28 Labs: Laboratory Results - last 24 hr 06/14/21 06/14/21 06/14/21 00:27 00:28 00:28 MCV 87.2 MCH 28.7 MCHC 32.9 RDW 19.9 H Plt Count 344 MPV 9.5 Immature Gran % (Auto) 0.6 H Neut % (Auto) 66.9 Lymph % (Auto) 22.9 [place] % (Auto) 6.8 Eos % (Auto) 1.6 Baso % (Auto) 1.2 Lymph # (Auto) 2.3 [place] # (Auto) 0.7 Eos # (Auto) 0.2 Baso # (Auto) 0.1 Abs Immat Gran (auto) 0.06 H Absolute Neuts (auto) 6.8 Absolute Nucleated RBC 0.000 Nucleated RBC % (auto) 0.0 PT 16.7 H INR 1.5 H Anion Gap Estim Creat Clear Calc Estimated GFR Random Glucose Calcium Total Bilirubin AST ALT Alkaline Phosphatase Troponin I High Sens 17.1 B-Natriuretic Peptide 1664 H Total Protein Albumin Lipase Urine Color Urine Appearance Urine pH Ur Specific [place] Urine Protein Urine Glucose (UA) Urine Ketones Urine Blood Urine Nitrite Ur Leukocyte Esterase Urine Opiates Screen Ur Barbiturates Screen Ur Phencyclidine Scrn Ur Amphetamines Screen U Benzodiazepines Scrn Urine Cocaine Screen U Marijuana (THC) Screen Ethyl Alcohol COVID-19 ([facility]) COVID-19 Clin Com 06/14/21 06/14/21 06/14/21 00:28 00:28 00:31 MCV MCH MCHC RDW Plt Count MPV Immature Gran % (Auto) Neut % (Auto) Lymph % (Auto) [place] % (Auto) Eos % (Auto) Baso % (Auto) Lymph # (Auto) [place] # (Auto) Eos # (Auto) Baso # (Auto) Abs Immat Gran (auto) Absolute Neuts (auto) Absolute Nucleated RBC Nucleated RBC % (auto) PT INR Anion Gap 13 Estim Creat Clear Calc 80.9 Estimated GFR > 60 Random Glucose 106 Calcium 9.0 Total Bilirubin 1.9 H AST 16 ALT 11 Alkaline Phosphatase 93 Troponin I High Sens B-Natriuretic Peptide Total Protein 6.5 Albumin 3.6 Lipase 25 Urine Color Urine Appearance Urine pH Ur Specific [place] Urine Protein Urine Glucose (UA) Urine Ketones Urine Blood Urine Nitrite Ur Leukocyte Esterase Urine Opiates Screen Ur Barbiturates Screen Ur Phencyclidine Scrn Ur Amphetamines Screen U Benzodiazepines Scrn Urine Cocaine Screen U Marijuana (THC) Screen Ethyl Alcohol < 10 COVID-19 ([facility]) Negative COVID-19 Clin Com See Note 06/14/21 06/14/21 06/14/21 02:57 02:57 03:42 MCV MCH MCHC RDW Plt Count MPV Immature Gran % (Auto) Neut % (Auto) Lymph % (Auto) [place] % (Auto) Eos % (Auto) Baso % (Auto) Lymph # (Auto) [place] # (Auto) Eos # (Auto) Baso # (Auto) Abs Immat Gran (auto) Absolute Neuts (auto) Absolute Nucleated RBC Nucleated RBC % (auto) PT INR Anion Gap Estim Creat Clear Calc Estimated GFR Random Glucose Calcium Total Bilirubin AST ALT Alkaline Phosphatase Troponin I High Sens 14.8 B-Natriuretic Peptide Total Protein Albumin Lipase Urine Color YELLOW Urine Appearance CLEAR Urine pH 6.0 Ur Specific [place] 1.010 Urine Protein NEG Urine Glucose (UA) NEG Urine Ketones NEG Urine Blood NEG Urine Nitrite NEG Ur Leukocyte Esterase NEG Urine Opiates Screen POSITIVE H Ur Barbiturates Screen Not Detected Ur Phencyclidine Scrn Not Detected Ur Amphetamines Screen Not Detected U Benzodiazepines Scrn Not Detected Urine Cocaine Screen Not Detected U Marijuana (THC) Screen Not Detected Ethyl Alcohol COVID-19 ([facility]) COVID-19 Clin Com Imaging Radiologist's Impressions: Impressions Chest X-Ray 06/13/21 23:59 IMPRESSION: Cardiomegaly. No acute intrathoracic disease Assessment and Plan (1) CHF exacerbation: Status: Acute (2) Chest pain: Status: Acute (3) JAKY (acute kidney injury): Status: Acute This is a 51-year-old male with past medical history of congestive heart failure presents with dyspnea as well as chest pain # acute CHF exacerbation - last echo done in May showed an ejection fraction of 20-25% - patient presents with orthopnea, PND, dyspnea, lower extremity edema - no evidence of over fluid overload on chest X - will start him on IV Lasix - strict I&O, daily weight, low-sodium diet - cardiology consult - continue amiodarone # chest pain - EKG shows no acute changes, troponin not significantly elevated - will consult Cardiology for possible stress test/further intervention - admit to telemetry # JAKY - most likely prerenal in the setting of acute heart failure - Lasix as above - follow BMP # hypertension - stable - continue carvedilol and spironolactone DVT prophylaxis: Lovenox Quality Stroke Does the patient have a stroke diagnosis?: No VTE Prior VTE?: No VTE Risk Level:: Medical - moderate - high VTE Device Contraindication: Treatment Not Indicated VTE Drug Contraindication: N/A - Med Ordered
[2021-06-14] MEDS: Enoxaparin Sodium 40 MG/0.4 ML SYRINGE SUBCUT (06:17)
--- NOTE | 2021-06-14 08:36 | MHC.CM.PN ---
CM met with Patient at bedside and addressed IMM with him, providing him with the original and placing a copy on the chart. Patient lives alone in an apartment and he had no prior services nor DME. Home no services is Patient's goal and CM will initiate and follow for possible need to adjust the dc plan (CHF). PCP is DR. Basia Duong.
[2021-06-14] MEDS: Spironolactone 25 MG TABLET 12.5 MG PO (09:31)
[2021-06-14] MEDS: carvediloL 25 MG TABLET PO (09:31)
[2021-06-14] MEDS: Amiodarone HCL 200 MG TABLET PO (09:31)
[2021-06-14] MEDS: Losartan Potassium 50 MG TABLET PO (09:31)
[2021-06-14] MEDS: Morphine Sulfate 4 MG/ML CARTRIDGE IVPUSH ×2 (09:31→15:21)
[2021-06-14] MEDS: Atorvastatin Calcium 40 MG TABLET PO (09:32)
[2021-06-14] MEDS: 0.9 % Sodium Chloride Flush 3 ML SYRINGE IVFLUSH (09:32)
[2021-06-14 09:33] LABS: Troponin-I High Sensitivity 11.2 ng/L (<3.5-35.0)
[2021-06-14] MEDS: Furosemide 200 MG in 0.9 % Sodium Chloride 80 ML IVCONT (11:01)
--- NOTE | 2021-06-14 12:18 | P.PNIM_ITS ---
Subjective Subjective Date of Service: 06/14/21 <CHRIS Ames - Last Filed: 06/14/21 12:36> 06/14/21 <Aldair Delgado MD - Last Filed: 06/14/21 16:31> Interval History: Seen and examined this morning, follow-up for CHF Ongoing leg edema, dyspnea <CHRIS Ames - Last Filed: 06/14/21 12:36> Review of Systems Review of Systems: Yes all other systems are reviewed and are negative <CHRIS Ames - Last Filed: 06/14/21 12:36> Constitutional Constitutional: Denies chills and Denies fever(s) <CHRIS Ames - Last Filed: 06/14/21 12:36> Cardiovascular Cardiovascular: Reports chest pain at rest, Reports leg edema, Reports dyspnea on exertion and Reports orthopnea <CHRIS Ames - Last Filed: 06/14/21 12:36> Respiratory Respiratory: Denies cough and Reports dyspnea on exertion <CHRIS Ames - Last Filed: 06/14/21 12:36> Gastrointestinal Gastrointestinal: Denies abdominal pain <CHRIS Ames - Last Filed: 06/14/21 12:36> Physical Exam Vital Signs: Vital Signs: Last Vital Signs Temp 97.4 F 06/14/21 11:49 Pulse 85 06/14/21 11:49 Resp 18 06/14/21 11:49 BP 106/71 06/14/21 11:49 Pulse Ox 95 06/14/21 11:49 Body Mass Index 33.9 <CHRIS Ames - Last Filed: 06/14/21 12:36> Const: General: alert and awake <CHRIS Ames - Last Filed: 06/14/21 12:36> Nutritional Appearance: well nourished <CHRIS Ames - Last Filed: 06/14/21 12:36> Orientation/consciousness: patient oriented x3 <CHRIS Ames - Last Filed: 06/14/21 12:36> HENMT: Head: Yes normocephalic and Yes atraumatic <CHRIS Ames - Last Filed: 06/14/21 12:36> Eyes: Sclerae: sclerae normal <CHRIS Ames - Last Filed: 06/14/21 12:36> Chest: Chest palpation & inspection: normal inspection of the chest <CHRIS Dorado - Last Filed: 06/14/21 12:36> Resp: Effort & Inspection: normal respiratory effort and tachypneic <CHRIS Ames - Last Filed: 06/14/21 12:36> Auscultation: crackles <CHRIS Ames - Last Filed: 06/14/21 12:36> Cardio: Jugular venous distension: JVD <CHRIS Ames - Last Filed: 06/14/21 12:36> Rate: regular rate <CHRIS Ames - Last Filed: 06/14/21 12:36> Rhythm: regular rhythm <CHRIS Ames - Last Filed: 06/14/21 12:36> GI: Palpation (GI): Soft to palpation and nontender <CHRIS Ames - Last Filed: 06/14/21 12:36> Neuro: General: patient oriented x3 <CHRIS Ames - Last Filed: 06/14/21 12:36> Cranial nerves: Yes CN's II-XII intact bilaterally and Yes Bilaterally intact EOM present <CHRIS Ames - Last Filed: 06/14/21 12:36> Extrem: Other: b/l leg edema <CHRIS Ames - Last Filed: 06/14/21 12:36> Objective Data Current Medications Generic Name Dose Route Start Last Admin Trade Name Freq PRN Reason Stop Dose Admin Acetaminophen 650 mg 06/14/21 05:36 Acetaminophen 325 Mg Tablet PO Q6H PRN Pain, Mild (Pain Scale 1-3) Hydrocodone Bitart/Acetaminophen 1 tab 06/14/21 05:36 Hydrocodone Bit/Acetam 10/325 Tablet PO Q4H PRN pain Albuterol Sulfate 2 puff 06/14/21 05:36 06/14/21 11:40 Albuterol Sulfate 90 Mcg 8 Gm Inhaler INHALE Not Given Q4H BETTINA Amiodarone HCl 200 mg 06/14/21 09:00 06/14/21 09:31 Amiodarone Hcl 200 Mg Tablet PO 200 mg DAILY BETTINA Administration Atorvastatin Calcium 40 mg 06/14/21 09:00 06/14/21 09:32 Atorvastatin Calcium 40 Mg Tablet PO 40 mg DAILY BETTINA Administration Carvedilol 25 mg 06/14/21 09:00 06/14/21 09:31 Carvedilol 25 Mg Tablet PO 25 mg BID BETTINA Administration Protocol Docusate Sodium 100 mg 06/14/21 05:36 Docusate Sodium 100 Mg Capsule PO DAILY PRN Constipation Enoxaparin Sodium 40 mg 06/14/21 06:00 06/14/21 06:17 Enoxaparin Sodium 40 Mg/0.4 Ml Syringe SUBCUT 40 mg Q24H BETTINA Administration Furosemide 200 mg/ Sodium 100 mls @ 5 mls/hr 06/14/21 10:00 06/14/21 11:01 Chloride IVCONT 10 mg/hr .Q20H BETTINA 5 mls/hr Administration 10 MG/HR Losartan Potassium 50 mg 06/14/21 09:00 06/14/21 09:31 Losartan Potassium 50 Mg Tablet PO 50 mg DAILY [facility] Administration Protocol Morphine Sulfate 4 mg 06/14/21 05:36 06/14/21 09:31 Morphine Sulfate 4 Mg/Ml Cartridge IVPUSH 4 mg Q4H PRN Administration Pain, Severe (Pain Scale 7-10) Ondansetron HCl 4 mg 06/14/21 05:36 Ondansetron Hcl 4 Mg/2 Ml Vial IVPUSH Q8H PRN Nausea and Vomiting Sertraline HCl 25 mg 06/14/21 21:00 Sertraline Hcl 25 Mg Tablet PO BEDTIME BETTINA Sodium Chloride 3 ml 06/14/21 08:00 06/14/21 09:32 0.9 % Sodium Chloride Flush 3 Ml Syringe IVFLUSH 3 ml QSHIFT [facility] Administration Spironolactone 12.5 mg 06/14/21 09:00 06/14/21 09:31 Spironolactone 25 Mg Tablet PO 12.5 mg DAILY BETTINA Administration Protocol <CHRIS Ames - Last Filed: 06/14/21 12:36> Labs CBC & Chem 7: : 06/14/21 00:28 06/14/21 00:28 <CHRIS Ames - Last Filed: 06/14/21 12:36> Labs: Laboratory Results - last 24 hr 06/14/21 06/14/21 06/14/21 00:27 00:28 00:28 WBC 10.2 RBC 5.09 Hgb 14.6 Hct 44.4 MCV 87.2 MCH 28.7 MCHC 32.9 RDW 19.9 H Plt Count 344 MPV 9.5 Immature Gran % (Auto) 0.6 H Neut % (Auto) 66.9 Lymph % (Auto) 22.9 [place] % (Auto) 6.8 Eos % (Auto) 1.6 Baso % (Auto) 1.2 Lymph # (Auto) 2.3 [place] # (Auto) 0.7 Eos # (Auto) 0.2 Baso # (Auto) 0.1 Abs Immat Gran (auto) 0.06 H Absolute Neuts (auto) 6.8 Absolute Nucleated RBC 0.000 Nucleated RBC % (auto) 0.0 PT 16.7 H INR 1.5 H Sodium Potassium Chloride Carbon Dioxide Anion Gap BUN Creatinine Estim Creat Clear Calc Estimated GFR Random Glucose Calcium Total Bilirubin AST ALT Alkaline Phosphatase Troponin I High Sens 17.1 B-Natriuretic Peptide 1664 H Total Protein Albumin Lipase Urine Color Urine Appearance Urine pH Ur Specific [place] Urine Protein Urine Glucose (UA) Urine Ketones Urine Blood Urine Nitrite Ur Leukocyte Esterase Urine Opiates Screen Ur Barbiturates Screen Ur Phencyclidine Scrn Ur Amphetamines Screen U Benzodiazepines Scrn Urine Cocaine Screen U Marijuana (THC) Screen Ethyl Alcohol COVID-19 ([facility]) COVID-19 Clin Com 06/14/21 06/14/21 06/14/21 00:28 00:28 00:31 WBC RBC Hgb Hct MCV MCH MCHC RDW Plt Count MPV Immature Gran % (Auto) Neut % (Auto) Lymph % (Auto) [place] % (Auto) Eos % (Auto) Baso % (Auto) Lymph # (Auto) [place] # (Auto) Eos # (Auto) Baso # (Auto) Abs Immat Gran (auto) Absolute Neuts (auto) Absolute Nucleated RBC Nucleated RBC % (auto) PT INR Sodium 139 Potassium 3.4 D Chloride 102 Carbon Dioxide 27 Anion Gap 13 BUN 14 Creatinine 1.18 Estim Creat Clear Calc 80.9 Estimated GFR > 60 Random Glucose 106 Calcium 9.0 Total Bilirubin 1.9 H AST 16 ALT 11 Alkaline Phosphatase 93 Troponin I High Sens B-Natriuretic Peptide Total Protein 6.5 Albumin 3.6 Lipase 25 Urine Color Urine Appearance Urine pH Ur Specific [place] Urine Protein Urine Glucose (UA) Urine Ketones Urine Blood Urine Nitrite Ur Leukocyte Esterase Urine Opiates Screen Ur Barbiturates Screen Ur Phencyclidine Scrn Ur Amphetamines Screen U Benzodiazepines Scrn Urine Cocaine Screen U Marijuana (THC) Screen Ethyl Alcohol < 10 COVID-19 ([facility]) Negative COVID-19 Clin Com See Note 06/14/21 06/14/21 06/14/21 02:57 02:57 03:42 WBC RBC Hgb Hct MCV MCH MCHC RDW Plt Count MPV Immature Gran % (Auto) Neut % (Auto) Lymph % (Auto) [place] % (Auto) Eos % (Auto) Baso % (Auto) Lymph # (Auto) [place] # (Auto) Eos # (Auto) Baso # (Auto) Abs Immat Gran (auto) Absolute Neuts (auto) Absolute Nucleated RBC Nucleated RBC % (auto) PT INR Sodium Potassium Chloride Carbon Dioxide Anion Gap BUN Creatinine Estim Creat Clear Calc Estimated GFR Random Glucose Calcium Total Bilirubin AST ALT Alkaline Phosphatase Troponin I High Sens 14.8 B-Natriuretic Peptide Total Protein Albumin Lipase Urine Color YELLOW Urine Appearance CLEAR Urine pH 6.0 Ur Specific [place] 1.010 Urine Protein NEG Urine Glucose (UA) NEG Urine Ketones NEG Urine Blood NEG Urine Nitrite NEG Ur Leukocyte Esterase NEG Urine Opiates Screen POSITIVE H Ur Barbiturates Screen Not Detected Ur Phencyclidine Scrn Not Detected Ur Amphetamines Screen Not Detected U Benzodiazepines Scrn Not Detected Urine Cocaine Screen Not Detected U Marijuana (THC) Screen Not Detected Ethyl Alcohol COVID-19 ([facility]) COVID-19 Clin Com 06/14/21 08:25 WBC RBC Hgb Hct MCV MCH MCHC RDW Plt Count MPV Immature Gran % (Auto) Neut % (Auto) Lymph % (Auto) [place] % (Auto) Eos % (Auto) Baso % (Auto) Lymph # (Auto) [place] # (Auto) Eos # (Auto) Baso # (Auto) Abs Immat Gran (auto) Absolute Neuts (auto) Absolute Nucleated RBC Nucleated RBC % (auto) PT INR Sodium Potassium Chloride Carbon Dioxide Anion Gap BUN Creatinine Estim Creat Clear Calc Estimated GFR Random Glucose Calcium Total Bilirubin AST ALT Alkaline Phosphatase Troponin I High Sens 11.2 B-Natriuretic Peptide Total Protein Albumin Lipase Urine Color Urine Appearance Urine pH Ur Specific [place] Urine Protein Urine Glucose (UA) Urine Ketones Urine Blood Urine Nitrite Ur Leukocyte Esterase Urine Opiates Screen Ur Barbiturates Screen Ur Phencyclidine Scrn Ur Amphetamines Screen U Benzodiazepines Scrn Urine Cocaine Screen U Marijuana (THC) Screen Ethyl Alcohol COVID-19 ([facility]) COVID-19 Clin Com <CHRIS Ames - Last Filed: 06/14/21 12:36> Quality Stroke Does the patient have a stroke diagnosis?: No <CHRIS Ames - Last Filed: 06/14/21 12:36> VTE Prior VTE?: No <CHRIS Ames - Last Filed: 06/14/21 12:36> VTE Risk Level:: Medical - moderate - high <CHRIS Ames - Last Filed: 06/14/21 12:36> VTE Device Contraindication: Treatment Not Indicated <CHRIS Ames - Last Filed: 06/14/21 12:36> VTE Drug Contraindication: N/A - Med Ordered <CHRIS Ames - Last Filed: 06/14/21 12:36> Assessment and Plan (1) CHF exacerbation: Status: Acute <CHRIS Ames - Last Filed: 06/14/21 12:36> (2) Chest pain: Status: Acute <CHRIS Ames - Last Filed: 06/14/21 12:36> (3) JAKY (acute kidney injury): Status: Acute <CHRIS Ames - Last Filed: 06/14/21 12:36> Assessment and Plan: This is a 51-year-old male with past medical history of congestive heart failure presents with dyspnea as well as chest pain acute on chronic HFrEF last echo done in May showed an ejection fraction of 20-25%, AICD present - will change bolus lasix to lasix drip - strict I&O, daily weight, low-sodium diet - cardiology consult - continue carvedilol Mass on ICD lead seen on last admission in May pt left ama ddx vegitation or thrombus BCx from May negative, pt afebrile ?need AC for for possible thrombus, will discuss with cardiology -cardiology consult h/o NSVT AICD in place -conintue amiodorone, carvedilol chest pain -EKG shows no acute changes, troponin flat -Cardiology consult hypertension - stable - continue carvedilol, spironolactone, losartan Mood -continue sertraline HLD -continue statin DVT prophylaxis: Lovenox Attending: Dr. delgado <CHRIS Ames - Last Filed: 06/14/21 12:36>
--- NOTE | 2021-06-14 12:54 | PM.CNCAR ---
History of Present Illness History of Present Illness Date of Service: 06/14/21 Requesting physician: Sheryl Rivera Chief complaint: CHF exacerbation/r/o ACS Narrative: 51-year-old gentleman background history of cardiomyopathy with EF of 20 25%, hypertension, status post AICD for cardiomyopathy who is presenting for shortness of breath and chest discomfort. He was recently admitted at [facility] and left AMA. He is complaining of a pressure-like feeling in his chest which is present all the time and has been present for weeks. He describes his as a pressure-like feeling on the left side of the chest. He also has been experiencing significant shortness of breath. He is saying he has been taking medications as prescribed before. Her last visit he had echocardiogram which showed that his ICD lead has masses attached to it. His blood cultures were negative. He was started on anticoagulation to see if these are due to thrombus and with the dissolved but he left AMA and was not on anticoagulation when he came back this time. EKG showing sinus rhythm, left axis deviation, septal infarct, lateral T-wave inversions. Review of Systems Review of Systems: Shortness of breath. [facility] Past Medical History Medical History Artificial cardiac pacemaker Back injuries Cardiomyopathy Chronic systolic HF (heart failure) HTN (hypertension) ICD (implantable cardioverter-defibrillator) in place Family History Family History Father Prostate cancer Mother No problems noted. Surgical History Surgical History Hx of cardiac cath (~08/2015) Social History Social History Household Members: None Housing: Apartment Do you presently have visiting nurse or other home services: No Patient Tobacco Use Status: Current everyday Tobacco user Tobacco use type: Cigarette Cigarettes Per Day: 5 Use of substances other than those prescribed or required for medical reasons: No Currently Displaying Signs/Symptoms of Drug Intoxication Withdrawal: No Advance Directives: No Advance Directives Information Provided: No Do you have thoughts of harming others: None Do you have a plan to hurt others: No Plan Recently lost weight without trying: No service: No Current occupational status: disabled Meds Allergies Allergy/AdvReac Type Severity Reaction Status Date / Time No Known Allergies Allergy Verified 06/14/21 05:16 Active Medications: Current Medications Generic Name Dose Route Start Last Admin Trade Name Freq PRN Reason Stop Dose Admin Acetaminophen 650 mg 06/14/21 05:36 Acetaminophen 325 Mg Tablet PO Q6H PRN Pain, Mild (Pain Scale 1-3) Hydrocodone Bitart/Acetaminophen 1 tab 06/14/21 05:36 Hydrocodone Bit/Acetam 10/325 Tablet PO Q4H PRN pain Albuterol Sulfate 2 puff 06/14/21 05:36 06/14/21 11:40 Albuterol Sulfate 90 Mcg 8 Gm Inhaler INHALE Not Given Q4H BETTINA Amiodarone HCl 200 mg 06/14/21 09:00 06/14/21 09:31 Amiodarone Hcl 200 Mg Tablet PO 200 mg DAILY BETTINA Administration Atorvastatin Calcium 40 mg 06/14/21 09:00 06/14/21 09:32 Atorvastatin Calcium 40 Mg Tablet PO 40 mg DAILY BETTINA Administration Carvedilol 25 mg 06/14/21 09:00 06/14/21 09:31 Carvedilol 25 Mg Tablet PO 25 mg BID BETTINA Administration Protocol Docusate Sodium 100 mg 06/14/21 05:36 Docusate Sodium 100 Mg Capsule PO DAILY PRN Constipation Enoxaparin Sodium 40 mg 06/14/21 06:00 06/14/21 06:17 Enoxaparin Sodium 40 Mg/0.4 Ml Syringe SUBCUT 40 mg Q24H BETTINA Administration Furosemide 200 mg/ Sodium 100 mls @ 5 mls/hr 06/14/21 10:00 06/14/21 11:01 Chloride IVCONT 10 mg/hr .Q20H BETTINA 5 mls/hr Administration 10 MG/HR Losartan Potassium 50 mg 06/14/21 09:00 06/14/21 09:31 Losartan Potassium 50 Mg Tablet PO 50 mg DAILY BETTINA Administration Protocol Morphine Sulfate 4 mg 06/14/21 05:36 06/14/21 09:31 Morphine Sulfate 4 Mg/Ml Cartridge IVPUSH 4 mg Q4H PRN Administration Pain, Severe (Pain Scale 7-10) Ondansetron HCl 4 mg 06/14/21 05:36 Ondansetron Hcl 4 Mg/2 Ml Vial IVPUSH Q8H PRN Nausea and Vomiting Sertraline HCl 25 mg 06/14/21 21:00 Sertraline Hcl 25 Mg Tablet PO BEDTIME BETTINA Sodium Chloride 3 ml 06/14/21 08:00 06/14/21 09:32 0.9 % Sodium Chloride Flush 3 Ml Syringe IVFLUSH 3 ml QSHIFT BETTINA Administration Spironolactone 12.5 mg 06/14/21 09:00 06/14/21 09:31 Spironolactone 25 Mg Tablet PO 12.5 mg DAILY BETTINA Administration Protocol Home Medications Medication Instructions Recorded Confirmed Last Taken Type albuterol sulfate 2 puff INHALATION Q4-6H 06/14/21 06/14/21 06/13/21 History amiodarone 1 tab PO QAM 06/14/21 06/14/21 06/13/21 History atorvastatin 1 tab PO QAM 06/14/21 06/14/21 06/13/21 History carvedilol 1 tab PO BID 06/14/21 06/14/21 06/13/21 History diclofenac sodium 2 g TOPICAL QID PRN 06/14/21 06/14/21 06/13/21 History furosemide 20 - 40 mg PO DAILY 06/14/21 06/14/21 06/13/21 History hydrocodone-acetaminophen 1 tab PO Q4-6H PRN 06/14/21 06/14/21 06/13/21 History losartan 1 tab PO QAM 06/14/21 06/14/21 06/13/21 History sertraline 1 tab PO QPM 06/14/21 06/14/21 06/13/21 History sildenafil [Viagra] 0.5 tab PO DAILY PRN 06/14/21 06/14/21 06/13/21 History spironolactone 0.5 tab PO QAM 06/14/21 06/14/21 06/13/21 History Physical Exam Vital Signs: Vital Signs: Last Vital Signs Temp 97.4 F 06/14/21 11:49 Pulse 85 06/14/21 11:49 Resp 18 06/14/21 11:49 BP 106/71 06/14/21 11:49 Pulse Ox 95 06/14/21 11:49 Body Mass Index 33.9 GENERAL APPEARANCE: Tachypneic. NECK: no carotid bruit, elevated JVD to the angle of jaw. SKIN: no suspicious lesions, warm and dry. HEART: no murmurs, regular rate and rhythm. LUNGS: clear to auscultation bilaterally. ABDOMEN: soft, nontender. EXTREMITIES: 1+ edema. PERIPHERAL PULSES: equal. NEUROLOGIC: No gross deficits, AAO X 3 Results Labs and Meds Result diagrams: 06/14/21 00:28 06/14/21 00:28 Lab results: Laboratory Results - last 24 hr 06/14/21 06/14/21 06/14/21 00:27 00:28 00:28 WBC 10.2 RBC 5.09 Hgb 14.6 Hct 44.4 MCV 87.2 MCH 28.7 MCHC 32.9 RDW 19.9 H Plt Count 344 MPV 9.5 Immature Gran % (Auto) 0.6 H Neut % (Auto) 66.9 Lymph % (Auto) 22.9 [place] % (Auto) 6.8 Eos % (Auto) 1.6 Baso % (Auto) 1.2 Lymph # (Auto) 2.3 [place] # (Auto) 0.7 Eos # (Auto) 0.2 Baso # (Auto) 0.1 Abs Immat Gran (auto) 0.06 H Absolute Neuts (auto) 6.8 Absolute Nucleated RBC 0.000 Nucleated RBC % (auto) 0.0 PT 16.7 H INR 1.5 H Sodium Potassium Chloride Carbon Dioxide Anion Gap BUN Creatinine Estim Creat Clear Calc Estimated GFR Random Glucose Calcium Total Bilirubin AST ALT Alkaline Phosphatase Troponin I High Sens 17.1 B-Natriuretic Peptide 1664 H Total Protein Albumin Lipase Urine Color Urine Appearance Urine pH Ur Specific [place] Urine Protein Urine Glucose (UA) Urine Ketones Urine Blood Urine Nitrite Ur Leukocyte Esterase Urine Opiates Screen Ur Barbiturates Screen Ur Phencyclidine Scrn Ur Amphetamines Screen U Benzodiazepines Scrn Urine Cocaine Screen U Marijuana (THC) Screen Ethyl Alcohol COVID-19 ([facility]) COVID-19 Clin Com 06/14/21 06/14/21 06/14/21 00:28 00:28 00:31 WBC RBC Hgb Hct MCV MCH MCHC RDW Plt Count MPV Immature Gran % (Auto) Neut % (Auto) Lymph % (Auto) [place] % (Auto) Eos % (Auto) Baso % (Auto) Lymph # (Auto) [place] # (Auto) Eos # (Auto) Baso # (Auto) Abs Immat Gran (auto) Absolute Neuts (auto) Absolute Nucleated RBC Nucleated RBC % (auto) PT INR Sodium 139 Potassium 3.4 D Chloride 102 Carbon Dioxide 27 Anion Gap 13 BUN 14 Creatinine 1.18 Estim Creat Clear Calc 80.9 Estimated GFR > 60 Random Glucose 106 Calcium 9.0 Total Bilirubin 1.9 H AST 16 ALT 11 Alkaline Phosphatase 93 Troponin I High Sens B-Natriuretic Peptide Total Protein 6.5 Albumin 3.6 Lipase 25 Urine Color Urine Appearance Urine pH Ur Specific [place] Urine Protein Urine Glucose (UA) Urine Ketones Urine Blood Urine Nitrite Ur Leukocyte Esterase Urine Opiates Screen Ur Barbiturates Screen Ur Phencyclidine Scrn Ur Amphetamines Screen U Benzodiazepines Scrn Urine Cocaine Screen U Marijuana (THC) Screen Ethyl Alcohol < 10 COVID-19 ([facility]) Negative COVID-[email or web address] See Note 06/14/21 06/14/21 06/14/21 02:57 02:57 03:42 WBC RBC Hgb Hct MCV MCH MCHC RDW Plt Count MPV Immature Gran % (Auto) Neut % (Auto) Lymph % (Auto) [place] % (Auto) Eos % (Auto) Baso % (Auto) Lymph # (Auto) [place] # (Auto) Eos # (Auto) Baso # (Auto) Abs Immat Gran (auto) Absolute Neuts (auto) Absolute Nucleated RBC Nucleated RBC % (auto) PT INR Sodium Potassium Chloride Carbon Dioxide Anion Gap BUN Creatinine Estim Creat Clear Calc Estimated GFR Random Glucose Calcium Total Bilirubin AST ALT Alkaline Phosphatase Troponin I High Sens 14.8 B-Natriuretic Peptide Total Protein Albumin Lipase Urine Color YELLOW Urine Appearance CLEAR Urine pH 6.0 Ur Specific [place] 1.010 Urine Protein NEG Urine Glucose (UA) NEG Urine Ketones NEG Urine Blood NEG Urine Nitrite NEG Ur Leukocyte Esterase NEG Urine Opiates Screen POSITIVE H Ur Barbiturates Screen Not Detected Ur Phencyclidine Scrn Not Detected Ur Amphetamines Screen Not Detected U Benzodiazepines Scrn Not Detected Urine Cocaine Screen Not Detected U Marijuana (THC) Screen Not Detected Ethyl Alcohol COVID-19 ([facility]) COVID-[place] 06/14/21 08:25 WBC RBC Hgb Hct MCV MCH MCHC RDW Plt Count MPV Immature Gran % (Auto) Neut % (Auto) Lymph % (Auto) [place] % (Auto) Eos % (Auto) Baso % (Auto) Lymph # (Auto) [place] # (Auto) Eos # (Auto) Baso # (Auto) Abs Immat Gran (auto) Absolute Neuts (auto) Absolute Nucleated RBC Nucleated RBC % (auto) PT INR Sodium Potassium Chloride Carbon Dioxide Anion Gap BUN Creatinine Estim Creat Clear Calc Estimated GFR Random Glucose Calcium Total Bilirubin AST ALT Alkaline Phosphatase Troponin I High Sens 11.2 B-Natriuretic Peptide Total Protein Albumin Lipase Urine Color Urine Appearance Urine pH Ur Specific [place] Urine Protein Urine Glucose (UA) Urine Ketones Urine Blood Urine Nitrite Ur Leukocyte Esterase Urine Opiates Screen Ur Barbiturates Screen Ur Phencyclidine Scrn Ur Amphetamines Screen U Benzodiazepines Scrn Urine Cocaine Screen U Marijuana (THC) Screen Ethyl Alcohol COVID-19 ([facility]) COVID-19 Clin Com Imaging Radiologist's impression: Impressions Chest X-Ray 06/13/21 23:59 IMPRESSION: Cardiomegaly. No acute intrathoracic disease Assessment and Plan (1) Acute on chronic systolic heart failure: Status: Acute 51-year-old gentleman with known cardiomyopathy and previous ICD placement who is here for shortness of breath and volume overload. Clinically in heart failure. Decrease the carvedilol to 12.5 mg twice a day. Agree with diuretics and Lasix drip. Chest pain is completely atypical and has been present for weeks. This can be due to congestive heart failure and elevated filling pressures vs acid reflux. Consider trying PPIs. We will repeat echocardiogram to assess the ICD lead for the mass is attached to it. He had blood cultures previously which were negative. Likely this is thrombus and he may need anticoagulation to see if this improves. Thank you for allowing me to participate in the care of your patient. Please feel free to contact me if you have any questions. Procedures Date of Service Date of Service: 06/14/21
--- NOTE | 2021-06-14 14:00 | CA_ITS ---
Transthoracic Echocardiogram Patient (Last, First, Middle): Stephen Sheth D Gender: Male Date of : 1970 Age: 51 Procedure Date: 06/14/2021 Procedure Type: Transthoracic Echocardiogram Location: [facility] [place] Height: 167.64 cm Weight: 95.26 kg BSA: 2.04 m2 Heart Rate: bpm Rug Setter Velvet: RANDAL Barahona MD: Macario Thacker MD Symptoms: reasess masses on the ICD leads. Conclusions: - The left ventricular systolic function is severely decreased. The visually estimated ejection fraction is between 15-20%. - Normal right ventricular cavity size. There is severely decreased right ventricular systolic function. There is an ICD wire seen in the right ventricle. There is mobile mass attached to the ICD lead. This appears smaller than before. Differentials include clot vs vegetation. - There is moderate to severe tricuspid valve regurgitation. Findings Left Ventricle The left ventricular systolic function is severely decreased. The visually estimated ejection fraction is between 15-20%. Right Ventricle Normal right ventricular cavity size. There is severely decreased right ventricular systolic function. There is an ICD wire seen in the right ventricle. There is mobile mass attached to the ICD lead. This appears smaller than before. Tricuspid Valve There is moderate to severe tricuspid valve regurgitation. Significantly elevated right atrial pressure. Venous The inferior vena cava is dilated and does not collapse with inspiration. Pericardium/Pleural There is no evidence of pericardial effusion. Prior Study Comparison Changes noted compared to prior study dated: 05/10/2021. RV function is severely reduced. The mass attached to ICD lead is less prominent. Updated in Other Vendor System with Status of Final Macario Thacker MD electronically signed on 06/14/2021 8:12:25 PM with status of Final
[2021-06-14] MEDS: Enoxaparin Sodium 100 MG/ML SYRINGE 95 MG SUBCUT (17:16)
[2021-06-14] MEDS: Sertraline HCL 25 MG TABLET PO (22:05)
[2021-06-14] MEDS: guaiFENesin DM 100/10/5 ML 5 ML SYRUP PO (22:06)
[2021-06-14] MEDS: Albuterol Sulfate 90 MCG 8 GM INHALER 2 PUFF INHALE (22:06)
[2021-06-15] VITALS (11 sets, daily range): BP systolic 103–120; BP diastolic 73–87; PULSE 62–85; RESP 18–20; TEMP 36–36.6; O2SAT 92–100; BMI 34.2
[2021-06-15] MEDS: Lidocaine 4 % Patch ADH..PATCH 1 PATCH TRANSDERMA (00:01)
[2021-06-15] MEDS: Albuterol Sulfate 90 MCG 8 GM INHALER 2 PUFF INHALE ×4 (02:56→19:55)
--- NOTE | 2021-06-15 03:52 | PC.NURSE ---
pt c/o chest pain radiating from sternum to outer ribs from coughing. notified, robitussin 5ml ordered. Given with some effect, remains coughing but in shorter increments. MD also ordered a one time dose for a lidocaine patch. This was placed on pt's medial chest, reports having good effect. Educated to splint using folded blanket, pt states it has been helping. Pt also noted to have an O2 sat of 85-95% on exertion. When he becomes short of breath it starts to make him anxious which increases his respirations. notified of this, and was placed on O2 2L NC. Pt continues to desat to 85 while sleeping, but increased to normal limits very quickly after. Pt reports having sleep study a very long time ago and was prescribed a cpap but hasn't worn it in years due to feeling claustrophobic. Pt resting comfortably at this time. Will continue to reassess respiratory status.
[2021-06-15] MEDS: Furosemide 200 MG in 0.9 % Sodium Chloride 80 ML IVCONT (05:04)
[2021-06-15] MEDS: Enoxaparin Sodium 100 MG/ML SYRINGE 95 MG SUBCUT ×2 (05:04→16:48)
[2021-06-15] MEDS: guaiFENesin DM 100/10/5 ML 5 ML SYRUP PO ×3 (05:04→22:14)
[2021-06-15] MEDS: Omeprazole 20 MG CAPSULE.DR PO (05:04)
[2021-06-15 06:31] LABS: MANUAL DIFF FLAG NO
[2021-06-15 06:43] LABS: Basophils Absolute Auto 0.1 X10*3/uL (0.0-0.2); Basophils Percent Auto 1.5 % (0-2); Eosinophils Absolute Auto 0.2 X10*3/uL (0.0-0.4); Eosinophils Percent Auto 3.2 % (0-4); Hematocrit 44.7 % (42-52); Hemoglobin 14.3 g/dl (14.0-18.0); Imm Gran Abs Auto 0.03 X10*3/uL (0.00-0.03); Imm Gran Pct Auto 0.5 % (0.0-0.4); Lymphocytes Absolute Auto 1.8 X10*3/uL (1.2-4.9); Lymphocytes Percent Auto 27.3 % (20-40); Mean Corpuscular Hemoglobin 28.4 pg (27.0-33.0); Mean Corpuscular Volume 88.7 fL (80-98); Mean Platelet Volume 10.5 fL (9.4-12.4); Monocytes Absolute Auto 0.6 X10*3/uL (0.1-1.2); Monocytes Percent Auto 8.6 % (2-11); Neutrophils Absolute Auto 3.9 X10*3/uL (2.0-8.3); Neutrophils Percent Auto 58.9 % (45-73); Platelet Count 307 X10*3/uL (160-400); Red Blood Count 5.04 X10*6/uL (4.60-5.80); Red Cell Distribution Width 20.4 % (11.0-16.0); White Blood Count 6.6 X10*3/uL (4.8-10.8)
[2021-06-15 07:11] LABS: Anion Gap 15 (12-20); Blood Urea Nitrogen 15 mg/dL (9-16); Calcium 8.7 mg/dL (8.4-10.2); Carbon Dioxide 27 mmol/L (22-29); Chloride 103 mmol/L (96-108); Creatinine Clr Calc Pharmacy 79.5; Estimated Glomerular Filt Rate > 60; Glucose Random 101 mg/dL (60-115); Sodium 141 mmol/L (135-145)
[2021-06-15 07:16] LABS: B Type Natriuretic Peptide 1180 pg/mL (<100)
[2021-06-15] MEDS: Spironolactone 25 MG TABLET 12.5 MG PO (08:12)
[2021-06-15] MEDS: Atorvastatin Calcium 40 MG TABLET PO (08:12)
[2021-06-15] MEDS: Acetaminophen 325 MG TABLET 650 MG PO (08:15)
[2021-06-15] MEDS: Amiodarone HCL 200 MG TABLET PO (08:15)
--- NOTE | 2021-06-15 11:04 | P.PNCA_ITS ---
Subjective Subjective Date of Service: 06/15/21 Interval history: He is feeling better. Chest pressure is improving with diuresis. Physical Exam Vital Signs: Last Vital Signs Temp 97.0 F 06/15/21 07:48 Pulse 66 06/15/21 09:06 Resp 18 06/15/21 07:48 BP 118/82 06/15/21 07:48 Pulse Ox 97 06/15/21 07:48 Body Mass Index 34.2 GENERAL APPEARANCE: In no acute distress. NECK: no carotid bruit, positive JVD. SKIN: no suspicious lesions, warm and dry. HEART: no murmurs, regular rate and rhythm. LUNGS: clear to auscultation bilaterally. ABDOMEN: soft, nontender. EXTREMITIES: 1+ edema. PERIPHERAL PULSES: equal. NEUROLOGIC: No gross deficits, AAO X 3 Results Labs and Meds Result diagrams: 06/15/21 05:30 06/15/21 05:30 Lab results: Laboratory Results - last 24 hr 06/15/21 06/15/21 06/15/21 05:30 05:30 05:30 WBC 6.6 RBC 5.04 Hgb 14.3 Hct 44.7 MCV 88.7 MCH 28.4 MCHC 32.0 RDW 20.4 H Plt Count 307 MPV 10.5 Immature Gran % (Auto) 0.5 H Neut % (Auto) 58.9 Lymph % (Auto) 27.3 [place] % (Auto) 8.6 Eos % (Auto) 3.2 Baso % (Auto) 1.5 Lymph # (Auto) 1.8 [place] # (Auto) 0.6 Eos # (Auto) 0.2 Baso # (Auto) 0.1 Abs Immat Gran (auto) 0.03 Absolute Neuts (auto) 3.9 Absolute Nucleated RBC 0.000 Nucleated RBC % (auto) 0.0 Sodium 141 Potassium 4.0 Chloride 103 Carbon Dioxide 27 Anion Gap 15 BUN 15 Creatinine 1.18 Estim Creat Clear Calc 79.5 Estimated GFR > 60 Random Glucose 101 Calcium 8.7 B-Natriuretic Peptide 1180 H Progress Note: A&P Assessment and plan (1) Acute on chronic systolic heart failure: Status: Acute (2) ICD (implantable cardioverter-defibrillator) in place: Status: Acute Assessment and Plan: 51-year-old gentleman with known cardiomyopathy with previous ICD who is present ing for acute on chronic congestive heart failure. On Lasix drip and improving. Continue to hold the beta-fernanda. Once euvolemic will reintroduce a beta fernanda at a low dose. He was noticed to have mass is attached to the ICD lead on last admission. This was thought to be clot and was started on anticoagulation but he left AMA. Repeat echocardiography is showing persistent mobile mass but looks smaller than before. His blood cultures have been negative in the past. Will repeat blood cultures again. He is being anticoagulated currently. We will see if this improves with anticoagulation further. Thank you for allowing me to participate in the care of your patient. Please feel free to contact me if you have any questions. Fall Risk Details Current Medications: Current Medications Generic Name Dose Route Start Last Admin Trade Name Freq PRN Reason Stop Dose Admin Acetaminophen 650 mg 06/14/21 05:36 06/15/21 08:15 Acetaminophen 325 Mg Tablet PO 650 mg Q6H PRN Administration Pain, Mild (Pain Scale 1-3) Albuterol Sulfate 2 puff 06/14/21 05:36 06/15/21 09:02 Albuterol Sulfate 90 Mcg 8 Gm Inhaler INHALE 2 puff Q4H BETTINA Administration Amiodarone HCl 200 mg 06/14/21 09:00 06/15/21 08:15 Amiodarone Hcl 200 Mg Tablet PO 200 mg DAILY BETTINA Administration Atorvastatin Calcium 40 mg 06/14/21 09:00 06/15/21 08:12 Atorvastatin Calcium 40 Mg Tablet PO 40 mg DAILY BETTINA Administration Docusate Sodium 100 mg 06/14/21 05:36 Docusate Sodium 100 Mg Capsule PO DAILY PRN Constipation Enoxaparin Sodium 95 mg 06/14/21 16:15 06/15/21 05:04 Enoxaparin Sodium 100 Mg/Ml Syringe 1 mg/kg (95 mg) 95 mg SUBCUT Administration Q12H BETTINA Guaifenesin/Dextromethorphan 5 ml 06/14/21 21:36 06/15/21 05:04 Guaifenesin Dm 100/10/5 Ml 5 Ml Syrup PO 5 ml Q6H PRN Administration Cough Furosemide 200 mg/ Sodium 100 mls @ 5 mls/hr 06/14/21 10:00 06/15/21 05:04 Chloride IVCONT 10 mg/hr .Q20H BETTINA 5 mls/hr Administration 10 MG/HR Omeprazole 20 mg 06/15/21 06:30 06/15/21 05:04 Omeprazole 20 Mg Capsule.Dr PO 20 mg DAILY@0630 BETTINA Administration Ondansetron HCl 4 mg 06/14/21 05:36 Ondansetron Hcl 4 Mg/2 Ml Vial IVPUSH Q8H PRN Nausea and Vomiting Sertraline HCl 25 mg 06/14/21 21:00 06/14/21 22:05 Sertraline Hcl 25 Mg Tablet PO 25 mg BEDTIME BETTINA Administration Sodium Chloride 3 ml 06/14/21 08:00 06/15/21 08:10 0.9 % Sodium Chloride Flush 3 Ml Syringe IVFLUSH Not Given QSHIFT BETTINA Spironolactone 12.5 mg 06/14/21 09:00 06/15/21 08:12 Spironolactone 25 Mg Tablet PO 12.5 mg DAILY BETTINA Administration Protocol Time Spent With Patient Time: Total time spent is greater than 50% in coordination of care (as documented) at patient's floor/unit and/or counseling patient: Time with patient: 25 - 35 minutes Progress Note: Quality Stroke Does the patient have a stroke diagnosis?: No Procedures Date of Service Date of Service: 06/15/21
--- NOTE | 2021-06-15 11:17 | P.PNIM_ITS ---
Subjective Subjective Date of Service: 06/15/21 Interval History: seen and examined this AM slowly feeling better reports non productive cough and subsequent pleuritic chest pain breathing still poor General - no fevers or chills Cardiovascular - no chest pain Respiratory - +sob, +non productive cough, +pleuritic cp Abdominal- no abdominal pain, nausea, vomiting, diarrhea Physical Exam Vital Signs: Vital Signs: Last Vital Signs Temp 97.0 F 06/15/21 07:48 Pulse 66 06/15/21 09:06 Resp 18 06/15/21 07:48 BP 118/82 06/15/21 07:48 Pulse Ox 97 06/15/21 07:48 Body Mass Index 34.2 Const: Other: General - no acute distress, appears comfortable Cardiovascular - S1S2, +jvd and 1+ pitting edema b/l Lungs - normal respiratory effort, clear to auscultation bilaterally, no wheezing Abdomen - soft, nontender, no rebound or guarding Extremities - as above Neuro - awake and alert, no focal deficits Objective Data Current Medications Generic Name Dose Route Start Last Admin Trade Name Freq PRN Reason Stop Dose Admin Acetaminophen 650 mg 06/14/21 05:36 06/15/21 08:15 Acetaminophen 325 Mg Tablet PO 650 mg Q6H PRN Administration Pain, Mild (Pain Scale 1-3) Albuterol Sulfate 2 puff 06/14/21 05:36 06/15/21 09:02 Albuterol Sulfate 90 Mcg 8 Gm Inhaler INHALE 2 puff Q4H BETTINA Administration Amiodarone HCl 200 mg 06/14/21 09:00 06/15/21 08:15 Amiodarone Hcl 200 Mg Tablet PO 200 mg DAILY BETTINA Administration Atorvastatin Calcium 40 mg 06/14/21 09:00 06/15/21 08:12 Atorvastatin Calcium 40 Mg Tablet PO 40 mg DAILY BETTINA Administration Docusate Sodium 100 mg 06/14/21 05:36 Docusate Sodium 100 Mg Capsule PO DAILY PRN Constipation Enoxaparin Sodium 95 mg 06/14/21 16:15 06/15/21 05:04 Enoxaparin Sodium 100 Mg/Ml Syringe 1 mg/kg (95 mg) 95 mg SUBCUT Administration Q12H BETTINA Guaifenesin/Dextromethorphan 5 ml 06/14/21 21:36 06/15/21 05:04 Guaifenesin Dm 100/10/5 Ml 5 Ml Syrup PO 5 ml Q6H PRN Administration Cough Furosemide 200 mg/ Sodium 100 mls @ 5 mls/hr 06/14/21 10:00 06/15/21 05:04 Chloride IVCONT 10 mg/hr .Q20H BETTINA 5 mls/hr Administration 10 MG/HR Omeprazole 20 mg 06/15/21 06:30 06/15/21 05:04 Omeprazole 20 Mg Capsule.Dr PO 20 mg DAILY@0630 BETTINA Administration Ondansetron HCl 4 mg 06/14/21 05:36 Ondansetron Hcl 4 Mg/2 Ml Vial IVPUSH Q8H PRN Nausea and Vomiting Sertraline HCl 25 mg 06/14/21 21:00 06/14/21 22:05 Sertraline Hcl 25 Mg Tablet PO 25 mg BEDTIME BETTINA Administration Sodium Chloride 3 ml 06/14/21 08:00 06/15/21 08:10 0.9 % Sodium Chloride Flush 3 Ml Syringe IVFLUSH Not Given QSHIFT BETTINA Spironolactone 12.5 mg 06/14/21 09:00 06/15/21 08:12 Spironolactone 25 Mg Tablet PO 12.5 mg DAILY BETTINA Administration Protocol Labs CBC & Chem 7: 06/15/21 05:30 06/15/21 05:30 Labs: Laboratory Results - last 24 hr 06/15/21 06/15/21 06/15/21 05:30 05:30 05:30 WBC 6.6 RBC 5.04 Hgb 14.3 Hct 44.7 MCV 88.7 MCH 28.4 MCHC 32.0 RDW 20.4 H Plt Count 307 MPV 10.5 Immature Gran % (Auto) 0.5 H Neut % (Auto) 58.9 Lymph % (Auto) 27.3 [place] % (Auto) 8.6 Eos % (Auto) 3.2 Baso % (Auto) 1.5 Lymph # (Auto) 1.8 [place] # (Auto) 0.6 Eos # (Auto) 0.2 Baso # (Auto) 0.1 Abs Immat Gran (auto) 0.03 Absolute Neuts (auto) 3.9 Absolute Nucleated RBC 0.000 Nucleated RBC % (auto) 0.0 Sodium 141 Potassium 4.0 Chloride 103 Carbon Dioxide 27 Anion Gap 15 BUN 15 Creatinine 1.18 Estim Creat Clear Calc 79.5 Estimated GFR > 60 Random Glucose 101 Calcium 8.7 B-Natriuretic Peptide 1180 H Quality Stroke Does the patient have a stroke diagnosis?: No VTE Prior VTE?: No VTE Risk Level:: Medical - moderate - high VTE Device Contraindication: Treatment Not Indicated VTE Drug Contraindication: N/A - Med Ordered Assessment and Plan (1) CHF exacerbation: Status: Acute (2) Chest pain: Status: Acute (3) JAKY (acute kidney injury): Status: Acute Assessment and Plan: This is a 51-year-old male with past medical history of congestive heart failure presents with dyspnea as well as chest pain acute on chronic HFrEF neg balance about 2.7 last echo done in May showed an ejection fraction of 20-25%, AICD present slowly improving on lasix gtt Mass on ICD lead suspected clot vs vegetation -- favor clot as blood cx from last admission neg, repeat negative so far this admission started on treatment dose lovenox NSVT AICD in place conintue amiodorone, carvedilol check Mag - keep >2; K > 4 already chest pain pleuritic in nature from cough HS trop-I neg and flat x 3 hypertension became hypotensive yesterday (suspected from IV opiates) all antihypertensives on hold, will add back on slowly as bp allows Mood -continue sertraline HLD -continue statin Full code dvt pptx -- on treatment dose lovenox
--- NOTE | 2021-06-15 11:23 | MHC.CM.PN ---
Perv ROUNDS discussion, Patient is not yet medically cleared for dc (Lasix Drip & Lovenox). Home is the goal for dc and CM will continue to follow for possible need to adjust the dc plan.
[2021-06-15 12:06] LABS: Magnesium 1.9 mg/dL (1.6-2.6)
[2021-06-15] MEDS: oxyCODONE HCl Immed Release 5 MG TABLET PO ×2 (12:13→18:46)
[2021-06-15] MEDS: carvediloL 3.125 MG TABLET PO ×2 (14:06→22:14)
[2021-06-15] MEDS: Magnesium Sulfate/H2O 2 GM/50 ML PIGGYBACK IV (14:06)
[2021-06-15] MEDS: Sertraline HCL 25 MG TABLET PO (22:14)
[2021-06-16] VITALS (13 sets, daily range): BP systolic 103–127; BP diastolic 79–94; PULSE 79–87; RESP 20; TEMP 36–36.7; O2SAT 93–100; BMI 33.6
[2021-06-16] MEDS: Albuterol Sulfate 90 MCG 8 GM INHALER 2 PUFF INHALE ×5 (00:03→23:58)
[2021-06-16] MEDS: oxyCODONE HCl Immed Release 5 MG TABLET PO ×4 (01:41→20:18)
[2021-06-16] MEDS: Furosemide 200 MG in 0.9 % Sodium Chloride 80 ML IVCONT ×2 (01:41→23:23)
[2021-06-16] MEDS: Omeprazole 20 MG CAPSULE.DR PO (05:11)
[2021-06-16] MEDS: Enoxaparin Sodium 100 MG/ML SYRINGE 95 MG SUBCUT ×2 (05:11→15:24)
[2021-06-16 06:43] LABS: Anion Gap 16 (12-20); Blood Urea Nitrogen 17 mg/dL (9-16); Calcium 8.8 mg/dL (8.4-10.2); Carbon Dioxide 28 mmol/L (22-29); Chloride 99 mmol/L (96-108); Creatinine Clr Calc Pharmacy 65.4; Estimated Glomerular Filt Rate 52; Glucose Random 101 mg/dL (60-115); Potassium 3.9 mmol/L (3.3-5.1); Sodium 139 mmol/L (135-145)
[2021-06-16 06:46] LABS: Magnesium 1.9 mg/dL (1.6-2.6)
[2021-06-16] MEDS: carvediloL 3.125 MG TABLET PO (07:28)
[2021-06-16] MEDS: Amiodarone HCL 200 MG TABLET PO (07:28)
[2021-06-16] MEDS: Atorvastatin Calcium 40 MG TABLET PO (07:28)
[2021-06-16] MEDS: Spironolactone 25 MG TABLET 12.5 MG PO (07:29)
[2021-06-16] MEDS: 0.9 % Sodium Chloride Flush 3 ML SYRINGE IVFLUSH (07:29)
--- NOTE | 2021-06-16 08:20 | P.PNCA_ITS ---
Subjective Subjective Date of Service: 06/16/21 Interval history: Creatinine worsened this morning. He is saying his breathing is better but he is having cough at nighttime. He is unable to lay flat completely. Review of Systems Review of Systems Cough, shortness of breath Physical Exam Vital Signs: Last Vital Signs Temp 97.7 F 06/16/21 07:18 Pulse 80 06/16/21 07:43 Resp 20 06/16/21 07:18 BP 123/87 06/16/21 07:29 Pulse Ox 99 06/16/21 07:18 Body Mass Index 33.6 GENERAL APPEARANCE: In no acute distress. NECK: no carotid bruit, elevated JVD to angle of jaw with prominent V-wave. SKIN: no suspicious lesions, warm and dry. HEART: no murmurs, regular rate and rhythm. LUNGS: clear to auscultation bilaterally. ABDOMEN: soft, nontender. EXTREMITIES: 1+ edema. PERIPHERAL PULSES: equal. NEUROLOGIC: No gross deficits, AAO X 3 Results Labs and Meds Result diagrams: 06/15/21 05:30 06/16/21 05:17 Lab results: Laboratory Results - last 24 hr 06/15/21 06/16/21 06/16/21 05:30 05:17 05:17 Sodium 139 Potassium 3.9 Chloride 99 Carbon Dioxide 28 Anion Gap 16 BUN 17 H Creatinine 1.42 H Estim Creat Clear Calc 65.4 Estimated GFR 52 Random Glucose 101 Calcium 8.8 Magnesium 1.9 1.9 Progress Note: A&P Assessment and plan (1) Acute on chronic systolic heart failure: Status: Acute (2) JAKY (acute kidney injury): Status: Acute Assessment and Plan: 51-year-old gentleman with biventricular failure presenting with congestive hear t failure. He has been on Lasix drip and was improving till today when his creatinine has bumped significantly. His examination is challenging due to severe tricuspid regurgitation because he has prominent V-wave and neck veins are up to the angle of jaw. He still has some symptoms pointing to her congestion including nighttime cough and inability to lay flat. I think we continue diuretics for now and repeat his creatinine in the afternoon. Creatinine was rising further then I would favor stopping the diuretics right now. He was also started on carvedilol yesterday because he was having nonsustained VT. I think this can also play a role in worsening of creatinine if he had change in cardiac output due to beta-fernanda. He is on Lovenox which was dosed primarily for normal creatinine before and this may need adjustment. We will follow along with you. Thank you for allowing me to participate in the care of your patient. Please feel free to contact me if you have any questions. Fall Risk Details Current Medications: Current Medications Generic Name Dose Route Start Last Admin Trade Name Freq PRN Reason Stop Dose Admin Acetaminophen 650 mg 06/14/21 05:36 06/15/21 08:15 Acetaminophen 325 Mg Tablet PO 650 mg Q6H PRN Administration Pain, Mild (Pain Scale 1-3) Albuterol Sulfate 2 puff 06/15/21 20:00 06/16/21 07:47 Albuterol Sulfate 90 Mcg 8 Gm Inhaler INHALE Not Given RQ4H BETTINA Amiodarone HCl 200 mg 06/14/21 09:00 06/16/21 07:28 Amiodarone Hcl 200 Mg Tablet PO 200 mg DAILY BETTINA Administration Atorvastatin Calcium 40 mg 06/14/21 09:00 06/16/21 07:28 Atorvastatin Calcium 40 Mg Tablet PO 40 mg DAILY BETTINA Administration Carvedilol 3.125 mg 06/15/21 13:45 06/16/21 07:28 Carvedilol 3.125 Mg Tablet PO 3.125 mg BID BETTINA Administration Protocol Docusate Sodium 100 mg 06/14/21 05:36 Docusate Sodium 100 Mg Capsule PO DAILY PRN Constipation Enoxaparin Sodium 95 mg 06/14/21 16:15 06/16/21 05:11 Enoxaparin Sodium 100 Mg/Ml Syringe 1 mg/kg (95 mg) 95 mg SUBCUT Administration Q12H BETTINA Guaifenesin/Dextromethorphan 5 ml 06/14/21 21:36 06/15/21 22:14 Guaifenesin Dm 100/10/5 Ml 5 Ml Syrup PO 5 ml Q6H PRN Administration Cough Guaifenesin/Dextromethorphan 5 ml 06/15/21 11:18 Guaifenesin Dm 100/10/5 Ml 5 Ml Syrup PO Q6H PRN Cough Furosemide 200 mg/ Sodium 100 mls @ 5 mls/hr 06/14/21 10:00 06/16/21 01:41 Chloride IVCONT 10 mg/hr .Q20H BETTINA 5 mls/hr Administration 10 MG/HR Omeprazole 20 mg 06/15/21 06:30 06/16/21 05:11 Omeprazole 20 Mg Capsule. PO 20 mg DAILY@0630 BETTINA Administration Ondansetron HCl 4 mg 06/14/21 05:36 Ondansetron Hcl 4 Mg/2 Ml Vial IVPUSH Q8H PRN Nausea and Vomiting Oxycodone HCl 5 mg 06/15/21 11:18 06/16/21 07:31 Oxycodone Hcl Immed Release 5 Mg Tablet PO 5 mg Q6H PRN Administration Pain, Severe (Pain Scale 7-10) Sertraline HCl 25 mg 06/14/21 21:00 06/15/21 22:14 Sertraline Hcl 25 Mg Tablet PO 25 mg BEDTIME BETTINA Administration Sodium Chloride 3 ml 06/14/21 08:00 06/16/21 07:29 0.9 % Sodium Chloride Flush 3 Ml Syringe IVFLUSH 3 ml QSHIFT BETTINA Administration Spironolactone 12.5 mg 06/14/21 09:00 06/16/21 07:29 Spironolactone 25 Mg Tablet PO 12.5 mg DAILY BETTINA Administration Protocol Time Spent With Patient Time: Total time spent is greater than 50% in coordination of care (as d ocumented) at patient's floor/unit and/or counseling patient: Time with patient: 25 - 35 minutes Progress Note: Quality Stroke Does the patient have a stroke diagnosis?: No Procedures Date of Service Date of Service: 06/16/21
[2021-06-16 09:05] LABS: B Type Natriuretic Peptide 1204 pg/mL (<100)
[2021-06-16] MEDS: Magnesium Sulfate/H2O 2 GM/50 ML PIGGYBACK IV (10:08)
--- NOTE | 2021-06-16 12:02 | HO.PM.IMPN ---
Subjective Subjective Date of Service: 06/16/21 <CHRIS Ames - Last Filed: 06/16/21 12:16> 06/16/21 <Salbador Pringle MD - Last Filed: 06/16/21 12:22> Interval History: seen and examined this morning continues to have cough primarily at night, difficulty lying flat to sleep continues to have complaints of chest pain with coughing only shortness of breath improving <CHRIS Ames - Last Filed: 06/16/21 12:16> Review of Systems Review of Systems: Yes all other systems are reviewed and are negative <CHRIS Ames - Last Filed: 06/16/21 12:16> Constitutional Constitutional: Denies chills and Denies fever(s) <CHRIS Ames - Last Filed: 06/16/21 12:16> Respiratory Respiratory: Denies cough <CHRIS Ames - Last Filed: 06/16/21 12:16> Gastrointestinal Gastrointestinal: Denies abdominal pain <CHRIS Ames - Last Filed: 06/16/21 12:16> Physical Exam Vital Signs: Vital Signs: Last Vital Signs Temp 98.0 F 06/16/21 11:43 Pulse 79 06/16/21 11:43 Resp 20 06/16/21 11:43 BP 117/86 06/16/21 11:43 Pulse Ox 100 06/16/21 11:43 Body Mass Index 33.6 <CHRIS Ames - Last Filed: 06/16/21 12:16> Const: General: alert and awake <CHRIS Ames - Last Filed: 06/16/21 12:16> Nutritional Appearance: well nourished <CHRIS Ames - Last Filed: 06/16/21 12:16> Orientation/consciousness: patient oriented x3 <CHRIS Ames - Last Filed: 06/16/21 12:16> HENMT: Head: Yes normocephalic and Yes atraumatic <CHRIS Ames Last Filed: 06/16/21 12:16> Eyes: Sclerae: sclerae normal <CHRIS Ames - Last Filed: 06/16/21 12:16> Chest: Chest palpation & inspection: normal inspection of the chest <CHRIS Ames - Last Filed: 06/16/21 12:16> Resp: Other: becomes short of breath with conversation <CHRIS Ames - Last Filed: 06/16/21 12:16> Effort & Inspection: normal respiratory effort <CHRIS Ames - Last Filed: 06/16/21 12:16> Cardio: Jugular venous distension: JVD <CHRIS Ames - Last Filed: 06/16/21 12:16> Rate: regular rate <CHRIS Ames - Last Filed: 06/16/21 12:16> Rhythm: regular rhythm <CHRIS Ames - Last Filed: 06/16/21 12:16> GI: Palpation (GI): Soft to palpation and nontender <CHRIS Ames - Last Filed: 06/16/21 12:16> Neuro: General: patient oriented x3 <CHRIS Ames - Last Filed: 06/16/21 12:16> Cranial nerves: Yes CN's II-XII intact bilaterally and Yes Bilaterally intact EOM present <CHRIS Ames - Last Filed: 06/16/21 12:16> Extrem: Other: b/l leg edema improving, around 1+ <CHRIS Ames - Last Filed: 06/16/21 12:16> Objective Data Current Medications Generic Name Dose Route Start Last Admin Trade Name Mickey PRN Reason Stop Dose Admin Acetaminophen 650 mg 06/14/21 05:36 06/15/21 08:15 Acetaminophen 325 Mg Tablet PO 650 mg Q6H PRN Administration Pain, Mild (Pain Scale 1-3) Albuterol Sulfate 2 puff 06/15/21 20:00 06/16/21 11:28 Albuterol Sulfate 90 Mcg 8 Gm Inhaler INHALE Not Given RQ4H [facility] Amiodarone HCl 200 mg 06/14/21 09:00 06/16/21 07:28 Amiodarone Hcl 200 Mg Tablet PO 200 mg DAILY [facility] Administration Atorvastatin Calcium 40 mg 06/14/21 09:00 06/16/21 07:28 Atorvastatin Calcium 40 Mg Tablet PO 40 mg DAILY BETTINA Administration Docusate Sodium 100 mg 06/14/21 05:36 Docusate Sodium 100 Mg Capsule PO DAILY PRN Constipation Enoxaparin Sodium 95 mg 06/14/21 16:15 06/16/21 05:11 Enoxaparin Sodium 100 Mg/Ml Syringe 1 mg/kg (95 mg) 95 mg SUBCUT Administration Q12H BETTINA Guaifenesin/Dextromethorphan 5 ml 06/14/21 21:36 06/15/21 22:14 Guaifenesin Dm 100/10/5 Ml 5 Ml Syrup PO 5 ml Q6H PRN Administration Cough Guaifenesin/Dextromethorphan 5 ml 06/15/21 11:18 Guaifenesin Dm 100/10/5 Ml 5 Ml Syrup PO Q6H PRN Cough Furosemide 200 mg/ Sodium 100 mls @ 5 mls/hr 06/14/21 10:00 06/16/21 01:41 Chloride IVCONT 10 mg/hr .Q20H BETTINA 5 mls/hr Administration 10 MG/HR Omeprazole 20 mg 06/15/21 06:30 06/16/21 05:11 Omeprazole 20 Mg Capsule.Dr PO 20 mg DAILY@0630 BETTINA Administration Ondansetron HCl 4 mg 06/14/21 05:36 Ondansetron Hcl 4 Mg/2 Ml Vial IVPUSH Q8H PRN Nausea and Vomiting Oxycodone HCl 5 mg 06/15/21 11:18 06/16/21 07:31 Oxycodone Hcl Immed Release 5 Mg Tablet PO 5 mg Q6H PRN Administration Pain, Severe (Pain Scale 7-10) Sertraline HCl 25 mg 06/14/21 21:00 06/15/21 22:14 Sertraline Hcl 25 Mg Tablet PO 25 mg BEDTIME BETTINA Administration Sodium Chloride 3 ml 06/14/21 08:00 06/16/21 07:29 0.9 % Sodium Chloride Flush 3 Ml Syringe IVFLUSH 3 ml QSHIFT BETTINA Administration Spironolactone 12.5 mg 06/14/21 09:00 06/16/21 07:29 Spironolactone 25 Mg Tablet PO 12.5 mg DAILY BETTINA Administration Protocol <CHRIS Ames - Last Filed: 06/16/21 12:16> Labs CBC & Chem 7: : 06/15/21 05:30 06/16/21 05:17 <CHRIS Ames - Last Filed: 06/16/21 12:16> Labs: Laboratory Results - last 24 hr 06/15/21 06/16/21 06/16/21 05:30 05:17 05:17 Sodium 139 Potassium 3.9 Chloride 99 Carbon Dioxide 28 Anion Gap 16 BUN 17 H Creatinine 1.42 H Estim Creat Clear Calc 65.4 Estimated GFR 52 Random Glucose 101 Calcium 8.8 Magnesium 1.9 1.9 B-Natriuretic Peptide 06/16/21 08:21 Sodium Potassium Chloride Carbon Dioxide Anion Gap BUN Creatinine Estim Creat Clear Calc Estimated GFR Random Glucose Calcium Magnesium B-Natriuretic Peptide 1204 H <CHRIS Ames - Last Filed: 06/16/21 12:16> Microbiology Microbiology Results: Microbiology 06/14/21 15:47 Blood Culture - Preliminary Blood - Venous No growth after 24 hours. 06/14/21 15:47 Blood Culture - Preliminary Blood - Venous No growth after 24 hours. <CHRIS Ames - Last Filed: 06/16/21 12:16> Quality Stroke Does the patient have a stroke diagnosis?: No <CHRIS Ames - Last Filed: 06/16/21 12:16> VTE Prior VTE?: No <CHRIS Ames - Last Filed: 06/16/21 12:16> VTE Risk Level:: Medical - moderate - high <CHRIS Ames - Last Filed: 06/16/21 12:16> VTE Device Contraindication: Treatment Not Indicated <CHRIS Ames - Last Filed: 06/16/21 12:16> VTE Drug Contraindication: N/A - Med Ordered <CHRIS Ames - Last Filed: 06/16/21 12:16> Assessment and Plan (1) CHF exacerbation: Status: Acute <CHRIS Ames - Last Filed: 06/16/21 12:16> (2) Chest pain: Status: Acute <CHRIS Ames - Last Filed: 06/16/21 12:16> (3) JAKY (acute kidney injury): Status: Acute <CHRIS Ames - Last Filed: 06/16/21 12:16> Assessment and Plan: This is a 51-year-old male with past medical history of congestive heart failure presents with dyspnea as well as chest pain acute on chronic HFrEF neg balance about 3.7L last echo done in May showed an ejection fraction of 20-25%, AICD present slowly improving on lasix gtt slight bump in renal function, will follow closely -monitor electrolytes Mass on ICD lead suspected clot vs vegetation -- favor clot as blood cx from last admission neg, repeat negative so far this admission - treatment dose lovenox NSVT AICD in place conintue amiodorone -carvedilol on hold due to acute HF -check Mag - keep >2; K > 4 already; replace as needed chest pain pleuritic in nature from cough HS trop-I neg and flat x 3 hypertension episode of hypotension 06/14 (suspected from IV opiates) all antihypertensives were hold, will add back on slowly as bp allows Mood -continue sertraline HLD -continue statin Full code dvt pptx -- on treatment dose lovenox Attending: Dr. Pringle <CHRIS Ames - Last Filed: 06/16/21 12:16>
[2021-06-16 13:40] LABS: Anion Gap 19 (12-20); Blood Urea Nitrogen 17 mg/dL (9-16); Calcium 9.1 mg/dL (8.4-10.2); Carbon Dioxide 25 mmol/L (22-29); Chloride 98 mmol/L (96-108); Creatinine Clr Calc Pharmacy 67.8; Estimated Glomerular Filt Rate 55; Glucose Random 119 mg/dL (60-115); Potassium 3.5 mmol/L (3.3-5.1); Sodium 138 mmol/L (135-145)
[2021-06-16] MEDS: guaiFENesin DM 100/10/5 ML 5 ML SYRUP PO (20:18)
[2021-06-16] MEDS: Sertraline HCL 25 MG TABLET PO (20:18)
[2021-06-17] VITALS (10 sets, daily range): BP systolic 105–135; BP diastolic 72–91; PULSE 50–96; RESP 18–20; TEMP 36.1–36.8; O2SAT 94–99; BMI 31.8
[2021-06-17] MEDS: oxyCODONE HCl Immed Release 5 MG TABLET PO ×4 (03:55→22:31)
[2021-06-17] MEDS: Enoxaparin Sodium 100 MG/ML SYRINGE 95 MG SUBCUT (03:56)
[2021-06-17 05:22] LABS: Hematocrit 44.5 % (42-52); Hemoglobin 14.6 g/dl (14.0-18.0); Mean Corpuscular HGB Conc 32.8 g/dl (31.0-36.0); Mean Corpuscular Hemoglobin 28.5 pg (27.0-33.0); Mean Corpuscular Volume 86.7 fL (80-98); Mean Platelet Volume 10.5 fL (9.4-12.4); Platelet Count 313 X10*3/uL (160-400); Red Blood Count 5.13 X10*6/uL (4.60-5.80); Red Cell Distribution Width 19.7 % (11.0-16.0); White Blood Count 8.1 X10*3/uL (4.8-10.8)
[2021-06-17 05:50] LABS: Anion Gap 16 (12-20); Blood Urea Nitrogen 14 mg/dL (9-16); Calcium 8.9 mg/dL (8.4-10.2); Carbon Dioxide 28 mmol/L (22-29); Chloride 99 mmol/L (96-108); Creatinine Clr Calc Pharmacy 83.7; Estimated Glomerular Filt Rate > 60; Glucose Random 130 mg/dL (60-115); Potassium 3.5 mmol/L (3.3-5.1); Sodium 139 mmol/L (135-145)
[2021-06-17] MEDS: Omeprazole 20 MG CAPSULE.DR PO (06:28)
[2021-06-17] MEDS: Albuterol Sulfate 90 MCG 8 GM INHALER 2 PUFF INHALE ×3 (08:20→15:26)
[2021-06-17] MEDS: Atorvastatin Calcium 40 MG TABLET PO (10:08)
[2021-06-17] MEDS: 0.9 % Sodium Chloride Flush 3 ML SYRINGE IVFLUSH ×2 (10:08→16:21)
[2021-06-17] MEDS: Spironolactone 25 MG TABLET 12.5 MG PO (10:08)
[2021-06-17] MEDS: Amiodarone HCL 200 MG TABLET PO (10:08)
--- NOTE | 2021-06-17 12:20 | HO.PM.IMPN ---
Subjective Subjective Date of Service: 06/17/21 <CHRIS Ames - Last Filed: 06/17/21 12:55> 06/17/21 <Juliann Agustin MD - Last Filed: 06/17/21 13:14> Interval History: seen and examined this morning follow up for chf reports improvement in cough, dyspnea, orthopnea leg edema mostly resolved patient wants to go home <CHRIS Ames - Last Filed: 06/17/21 12:55> Review of Systems Review of Systems: Yes all other systems are reviewed and are negative <CHRIS Ames - Last Filed: 06/17/21 12:55> Constitutional Constitutional: Denies chills and Denies fever(s) <CHRIS Ames - Last Filed: 06/17/21 12:55> Cardiovascular Cardiovascular: Denies chest pain <CHRIS Ames - Last Filed: 06/17/21 12:55> Respiratory Respiratory: Denies cough <CHRIS Ames - Last Filed: 06/17/21 12:55> Gastrointestinal Gastrointestinal: Denies abdominal pain <CHRIS Ames - Last Filed: 06/17/21 12:55> Physical Exam Vital Signs: Vital Signs: Last Vital Signs Temp 97.0 F 06/17/21 11:40 Pulse 92 06/17/21 11:46 Resp 20 06/17/21 11:40 BP 107/77 06/17/21 11:40 Pulse Ox 98 06/17/21 11:40 Body Mass Index 31.8 <CHRIS Ames - Last Filed: 06/17/21 12:55> Const: General: alert and awake <CHRIS Ames - Last Filed: 06/17/21 12:55> Nutritional Appearance: well nourished <CHRIS Ames - Last Filed: 06/17/21 12:55> Orientation/consciousness: patient oriented x3 <CHRIS Ames - Last Filed: 06/17/21 12:55> HENMT: Head: Yes normocephalic and Yes atraumatic <CHRIS Ames - Last Filed: 06/17/21 12:55> Eyes: Sclerae: sclerae normal <CHRIS Ames Last Filed: 06/17/21 12:55> Chest: Chest palpation & inspection: normal inspection of the chest <CHRIS Ames Last Filed: 06/17/21 12:55> Resp: Effort & Inspection: normal respiratory effort <CHRIS Ames Last Filed: 06/17/21 12:55> Cardio: Jugular venous distension: JVD <CHRIS Ames - Last Filed: 06/17/21 12:55> Rate: regular rate <CHRIS Ames - Last Filed: 06/17/21 12:55> Rhythm: regular rhythm <CHRIS Ames Last Filed: 06/17/21 12:55> GI: Palpation (GI): Soft to palpation and nontender <CHRIS Ames - Last Filed: 06/17/21 12:55> Neuro: General: patient oriented x3 <CHRIS Ames Last Filed: 06/17/21 12:55> Cranial nerves: Yes CN's II-XII intact bilaterally and Yes Bilaterally intact EOM present <CHRIS Ames Last Filed: 06/17/21 12:55> Extrem: Other: trace leg edema <CHRIS Ames Last Filed: 06/17/21 12:55> Objective Data Current Medications Generic Name Dose Route Start Last Admin Trade Name Amritq PRN Reason Stop Dose Admin Acetaminophen 650 mg 06/14/21 05:36 06/15/21 08:15 Acetaminophen 325 Mg Tablet PO 650 mg Q6H PRN Administration Pain, Mild (Pain Scale 1-3) Albuterol Sulfate 2 puff 06/15/21 20:00 06/17/21 11:44 Albuterol Sulfate 90 Mcg 8 Gm Inhaler INHALE 2 puff RQ4H BETTINA Administration Amiodarone HCl 200 mg 06/14/21 09:00 06/17/21 10:08 Amiodarone Hcl 200 Mg Tablet PO 200 mg DAILY BETTINA Administration Atorvastatin Calcium 40 mg 06/14/21 09:00 06/17/21 10:08 Atorvastatin Calcium 40 Mg Tablet PO 40 mg DAILY BETTINA Administration Docusate Sodium 100 mg 06/14/21 05:36 Docusate Sodium 100 Mg Capsule PO DAILY PRN Constipation Enoxaparin Sodium 95 mg 06/14/21 16:15 06/17/21 03:56 Enoxaparin Sodium 100 Mg/Ml Syringe 1 mg/kg (95 mg) 95 mg SUBCUT Administration Q12H BETTINA Guaifenesin/Dextromethorphan 5 ml 06/14/21 21:36 06/16/21 20:18 Guaifenesin Dm 100/10/5 Ml 5 Ml Syrup PO 5 ml Q6H PRN Administration Cough Guaifenesin/Dextromethorphan 5 ml 06/15/21 11:18 Guaifenesin Dm 100/10/5 Ml 5 Ml Syrup PO Q6H PRN Cough Furosemide 200 mg/ Sodium 100 mls @ 5 mls/hr 06/14/21 10:00 06/16/21 23:23 Chloride IVCONT 10 mg/hr .Q20H BETTINA 5 mls/hr Administration 10 MG/HR Omeprazole 20 mg 06/15/21 06:30 06/17/21 06:28 Omeprazole 20 Mg Capsule.Dr PO 20 mg DAILY@0630 BETTINA Administration Ondansetron HCl 4 mg 06/14/21 05:36 Ondansetron Hcl 4 Mg/2 Ml Vial IVPUSH Q8H PRN Nausea and Vomiting Oxycodone HCl 5 mg 06/15/21 11:18 06/17/21 10:08 Oxycodone Hcl Immed Release 5 Mg Tablet PO 5 mg Q6H PRN Administration Pain, Severe (Pain Scale 7-10) Sertraline HCl 25 mg 06/14/21 21:00 06/16/21 20:18 Sertraline Hcl 25 Mg Tablet PO 25 mg BEDTIME BETTINA Administration Sodium Chloride 3 ml 06/14/21 08:00 06/17/21 10:08 0.9 % Sodium Chloride Flush 3 Ml Syringe IVFLUSH 3 ml QSHIFT BETTINA Administration Spironolactone 12.5 mg 06/14/21 09:00 06/17/21 10:08 Spironolactone 25 Mg Tablet PO 12.5 mg DAILY BETTINA Administration Protocol <CHRIS Ames - Last Filed: 06/17/21 12:55> Labs CBC & Chem 7: : 06/17/21 04:56 06/17/21 04:56 <CHRIS Ames - Last Filed: 06/17/21 12:55> Labs: Laboratory Results - last 24 hr 06/16/21 06/17/21 06/17/21 13:00 04:56 04:56 WBC 8.1 RBC 5.13 Hgb 14.6 Hct 44.5 MCV 86.7 MCH 28.5 MCHC 32.8 RDW 19.7 H Plt Count 313 MPV 10.5 Absolute Nucleated RBC 0.000 Nucleated RBC % (auto) 0.0 Sodium 138 139 Potassium 3.5 3.5 Chloride 98 99 Carbon Dioxide 25 28 Anion Gap 19 16 BUN 17 H 14 Creatinine 1.37 1.11 Estim Creat Clear Calc 67.8 83.7 Estimated GFR 55 > 60 Random Glucose 119 H 130 H Calcium 9.1 8.9 <CHRIS Ames - Last Filed: 06/17/21 12:55> Microbiology Microbiology Results: Microbiology 06/14/21 15:47 Blood Culture - Preliminary Blood - Venous No growth after 48 hours. 06/14/21 15:47 Blood Culture - Preliminary Blood - Venous No growth after 48 hours. <CHRIS Ames - Last Filed: 06/17/21 12:55> Quality Stroke Does the patient have a stroke diagnosis?: No <CHRIS Ames - Last Filed: 06/17/21 12:55> VTE Prior VTE?: No <CRHIS Ames - Last Filed: 06/17/21 12:55> VTE Risk Level:: Medical - moderate - high <CHRIS Ames - Last Filed: 06/17/21 12:55> VTE Device Contraindication: Treatment Not Indicated <CHRIS Ames - Last Filed: 06/17/21 12:55> VTE Drug Contraindication: N/A - Med Ordered <CHRIS Ames - Last Filed: 06/17/21 12:55> Assessment and Plan (1) CHF exacerbation: Status: Acute <CHRIS Ames - Last Filed: 06/17/21 12:55> (2) Chest pain: Status: Acute <CHRIS Ames - Last Filed: 06/17/21 12:55> (3) JAKY (acute kidney injury): Status: Acute <CHRIS Ames - Last Filed: 06/17/21 12:55> Assessment and Plan: This is a 51-year-old male with past medical history of congestive heart failure presents with dyspnea as well as chest pain acute on chronic HFrEF Clinically improving neg balance about 6L last echo done in May showed an ejection fraction of 20-25%, AICD present -continue lasix gtt today, likely change to PO in am -monitor electrolytes Mass on ICD lead suspected clot vs vegetation -- favor clot as blood cx from last admission neg, repeat from 06/14 negative x 48 hours -previously on treatment dose lovenox, will transition to PO Elqiquis 10 bid x 7 days followed by 5 bid NSVT AICD in place conintue amiodorone -carvedilol on hold due to acute HF, continue to hold per cards -check Mag - keep >2; K > 4 already; replace as needed chest pain pleuritic in nature from cough HS trop-I neg and flat x 3 hypertension episode of hypotension 06/14 (suspected from IV opiates) all antihypertensives were hold, will add back on slowly as bp allows Mood -continue sertraline HLD -continue statin Full code dvt pptx -eliquis Attending: Dr. Agustin <CHRIS Ames - Last Filed: 06/17/21 12:55>
--- NOTE | 2021-06-17 12:47 | P.PNCA_ITS ---
Subjective Subjective Date of Service: 06/17/21 Interval history: Feeling better. Creatinine improved with diuresis. Review of Systems Review of Systems Breathing better. Yes all other systems are reviewed and are negative Physical Exam Vital Signs: Last Vital Signs Temp 97.0 F 06/17/21 11:40 Pulse 92 06/17/21 11:46 Resp 20 06/17/21 11:40 BP 107/77 06/17/21 11:40 Pulse Ox 98 06/17/21 11:40 Body Mass Index 31.8 GENERAL APPEARANCE: In no acute distress. NECK: no carotid bruit, JVD 12 cm water SKIN: no suspicious lesions, warm and dry. HEART: no murmurs, regular rate and rhythm. LUNGS: clear to auscultation bilaterally. ABDOMEN: soft, nontender. EXTREMITIES: No significant peripheral edema. PERIPHERAL PULSES: equal. NEUROLOGIC: No gross deficits, AAO X 3 Results Labs and Meds Result diagrams: 06/17/21 04:56 06/17/21 04:56 Lab results: Laboratory Results - last 24 hr 06/16/21 06/17/21 06/17/21 13:00 04:56 04:56 WBC 8.1 RBC 5.13 Hgb 14.6 Hct 44.5 MCV 86.7 MCH 28.5 MCHC 32.8 RDW 19.7 H Plt Count 313 MPV 10.5 Absolute Nucleated RBC 0.000 Nucleated RBC % (auto) 0.0 Sodium 138 139 Potassium 3.5 3.5 Chloride 98 99 Carbon Dioxide 25 28 Anion Gap 19 16 BUN 17 H 14 Creatinine 1.37 1.11 Estim Creat Clear Calc 67.8 83.7 Estimated GFR 55 > 60 Random Glucose 119 H 130 H Calcium 9.1 8.9 Progress Note: A&P Assessment and plan (1) Acute on chronic systolic heart failure: Status: Acute (2) NSVT (nonsustained ventricular tachycardia): Status: Acute (3) ICD (implantable cardioverter-defibrillator) in place: Status: Acute Assessment and Plan: 51-year-old gentleman with cardiomyopathy status post ICD was presenting for congestive heart failure. He has biventricular failure. Has been significantly volume overloaded. He was given carvedilol because he had runs of nonsustained VT but did not tolerated and his creatinine worsened the next day. I think we should continue to hold the carvedilol. Continue with IV diuretics at this point. Potentially can be changed to oral diuretics tomorrow after examination. He had mass attached to his ICD lead which is likely thrombus. His blood cul tures has been normal. He has been started on anticoagulation for potential clot. I think in 4-6 weeks we should repeat another echocardiogram to reassess this. If his volume status is improved tomorrow then potentially can be resumed on carvedilol 3.125 mg twice a day. Thank you for allowing me to participate in the care of your patient. Please feel free to contact me if you have any questions. Fall Risk Details Current Medications: Current Medications Generic Name Dose Route Start Last Admin Trade Name Freq PRN Reason Stop Dose Admin Acetaminophen 650 mg 06/14/21 05:36 06/15/21 08:15 Acetaminophen 325 Mg Tablet PO 650 mg Q6H PRN Administration Pain, Mild (Pain Scale 1-3) Albuterol Sulfate 2 puff 06/15/21 20:00 06/17/21 11:44 Albuterol Sulfate 90 Mcg 8 Gm Inhaler INHALE 2 puff RQ4H BETTINA Administration Amiodarone HCl 200 mg 06/14/21 09:00 06/17/21 10:08 Amiodarone Hcl 200 Mg Tablet PO 200 mg DAILY BETTINA Administration Apixaban 10 mg 06/17/21 16:00 Apixaban 5 Mg Tablet PO BID@0600,1800 BETTINA Atorvastatin Calcium 40 mg 06/14/21 09:00 06/17/21 10:08 Atorvastatin Calcium 40 Mg Tablet PO 40 mg DAILY BETTINA Administration Docusate Sodium 100 mg 06/14/21 05:36 Docusate Sodium 100 Mg Capsule PO DAILY PRN Constipation Guaifenesin/Dextromethorphan 5 ml 06/14/21 21:36 06/16/21 20:18 Guaifenesin Dm 100/10/5 Ml 5 Ml Syrup PO 5 ml Q6H PRN Administration Cough Guaifenesin/Dextromethorphan 5 ml 06/15/21 11:18 Guaifenesin Dm 100/10/5 Ml 5 Ml Syrup PO Q6H PRN Cough Furosemide 200 mg/ Sodium 100 mls @ 5 mls/hr 06/14/21 10:00 06/16/21 23:23 Chloride IVCONT 10 mg/hr .Q20H BETTINA 5 mls/hr Administration 10 MG/HR Omeprazole 20 mg 06/15/21 06:30 06/17/21 06:28 Omeprazole 20 Mg Capsule.Dr PO 20 mg DAILY@0630 BETTINA Administration Ondansetron HCl 4 mg 06/14/21 05:36 Ondansetron Hcl 4 Mg/2 Ml Vial IVPUSH Q8H PRN Nausea and Vomiting Oxycodone HCl 5 mg 06/15/21 11:18 06/17/21 10:08 Oxycodone Hcl Immed Release 5 Mg Tablet PO 5 mg Q6H PRN Administration Pain, Severe (Pain Scale 7-10) Sertraline HCl 25 mg 06/14/21 21:00 06/16/21 20:18 Sertraline Hcl 25 Mg Tablet PO 25 mg BEDTIME BETTINA Administration Sodium Chloride 3 ml 06/14/21 08:00 06/17/21 10:08 0.9 % Sodium Chloride Flush 3 Ml Syringe IVFLUSH 3 ml QSHIFT BETTINA Administration Spironolactone 12.5 mg 06/14/21 09:00 06/17/21 10:08 Spironolactone 25 Mg Tablet PO 12.5 mg DAILY BETTINA Administration Protocol Time Spent With Patient Time: Total time spent is greater than 50% in coordination of care (as d ocumented) at patient's floor/unit and/or counseling patient: Time with patient: 25 - 35 minutes Progress Note: Quality Stroke Does the patient have a stroke diagnosis?: No Procedures Date of Service Date of Service: 06/17/21
[2021-06-17] MEDS: Apixaban 5 MG TABLET PO (17:51)
[2021-06-17] MEDS: Furosemide 200 MG in 0.9 % Sodium Chloride 80 ML IVCONT (17:51)
[2021-06-17] MEDS: guaiFENesin DM 100/10/5 ML 5 ML SYRUP PO (22:31)
[2021-06-17 22:32] LABS: Anion Gap 17 (12-20); Blood Urea Nitrogen 14 mg/dL (9-16); Calcium 9.4 mg/dL (8.4-10.2); Carbon Dioxide 29 mmol/L (22-29); Chloride 98 mmol/L (96-108); Creatinine Clr Calc Pharmacy 62.9; Estimated Glomerular Filt Rate 52; Glucose Random 95 mg/dL (60-115); Potassium 3.8 mmol/L (3.3-5.1); Sodium 140 mmol/L (135-145)
[2021-06-17] MEDS: Sertraline HCL 25 MG TABLET PO (22:32)
[2021-06-18] MEDS: Albuterol Sulfate 90 MCG 8 GM INHALER 2 PUFF INHALE ×3 (00:41→11:19)
[2021-06-18 00:42] VITALS: PULSE 92; O2SAT 93
[2021-06-18 03:24] VITALS: BP 100/73; PULSE 82; RESP 20; TEMP 36; O2SAT 90
[2021-06-18] MEDS: Omeprazole 20 MG CAPSULE.DR PO (05:04)
[2021-06-18] MEDS: Apixaban 5 MG TABLET PO (05:04)
[2021-06-18] MEDS: oxyCODONE HCl Immed Release 5 MG TABLET PO (05:04)
[2021-06-18 07:39] VITALS: BP 126/87; PULSE 81; RESP 20; TEMP 36.3; O2SAT 99
[2021-06-18 08:12] VITALS: PULSE 92; O2SAT 93
[2021-06-18 08:46] VITALS: BP 126/87; PULSE 92
[2021-06-18] MEDS: Atorvastatin Calcium 40 MG TABLET PO (08:46)
[2021-06-18] MEDS: Spironolactone 25 MG TABLET 12.5 MG PO (08:46)
[2021-06-18] MEDS: 0.9 % Sodium Chloride Flush 3 ML SYRINGE IVFLUSH (08:46)
[2021-06-18] MEDS: Amiodarone HCL 200 MG TABLET PO (08:46)
[2021-06-18 09:34] LABS: Magnesium 1.9 mg/dL (1.6-2.6)
[2021-06-18 09:37] LABS: Anion Gap 16 (12-20); Blood Urea Nitrogen 15 mg/dL (9-16); Calcium 9.5 mg/dL (8.4-10.2); Carbon Dioxide 29 mmol/L (22-29); Chloride 97 mmol/L (96-108); Creatinine Clr Calc Pharmacy 73.3; Estimated Glomerular Filt Rate > 60; Glucose Random 133 mg/dL (60-115); Potassium 3.7 mmol/L (3.3-5.1); Sodium 138 mmol/L (135-145)
--- NOTE | 2021-06-18 11:00 | P.PNCA_ITS ---
Subjective Subjective Date of Service: 06/18/21 Principal diagnosis: Congestive heart failure, ICD wire mass suspected thrombus Interval history: Patient has been diuresed with overall cumulative negative balance of 6.6 L. clinically fluid status is improved significantly. His creatinine is increased slightly. He has prior history of noncompliance. His neurohormonal modulation have been on hold. He is chronically supposed to be on losartan as well as high dose Coreg, however these have been held. At home is on 20 mg of Lasix. He is minimally active at home with NYHA class 3 symptoms. Review of Systems Constitutional: Reports no additional constitutional complaints Cardiovascular: Reports no additional cardiovascular complaints Respiratory: Reports no additional respiratory complaints Gastrointestinal: Reports no additional gastrointestinal complaints Genitourinary: Reports no additional male genitourinary complaints Reports system reviewed and no additional complaints, except as documented Physical Exam Vital Signs: Last Vital Signs Temp 97.4 F 06/18/21 07:39 Pulse 92 06/18/21 08:46 Resp 20 06/18/21 07:39 BP 126/87 06/18/21 08:46 Pulse Ox 99 06/18/21 07:39 Body Mass Index 30.0 Const General: cooperative, comfortable, no acute distress and poor hygiene Nutritional Appearance: overweight Orientation/consciousness: patient oriented x3 Limitations: no limitations Neck Neck: Yes trachea midline, Yes supple and Yes no JVD Resp Effort & Inspection: normal respiratory effort Auscultation: no rales, no wheezes and diminished lung sounds Cardio Jugular venous distension: no JVD Palpation: abnormal PMI displaced PMI Rate: regular rate Rhythm: regular rhythm Heart sounds: S1 normal heart sound present and S2 normal heart sound present Skin General skin exam: no rashes or lesions noted Neuro General: patient oriented x3 Extrem General: Yes no clubbing, cyanosis or edema Psych Appearance: grossly normal Results Labs and Meds Result diagrams: 06/17/21 04:56 06/18/21 08:57 Lab results: Laboratory Results - last 24 hr 06/17/21 06/18/21 06/18/21 21:45 08:57 08:57 Sodium 140 138 Potassium 3.8 3.7 Chloride 98 97 Carbon Dioxide 29 29 Anion Gap 17 16 BUN 14 15 Creatinine 1.44 H 1.20 Estim Creat Clear Calc 62.9 73.3 Estimated GFR 52 > 60 Random Glucose 95 133 H D Calcium 9.4 9.5 Magnesium 2.0 1.9 Progress Note: A&P Assessment and plan (1) Acute on chronic systolic heart failure: Status: Acute Assessment and Plan: Patient admitted with acute decompensated congestive heart failure. Question compliance with medications P understands heart failure management well. May be a candidate for CardioMEMS device as he has multiple hospitalization with decompensated heart failure with NYHA class 3 symptoms as outpatient to prevent hospitalizations. Switch his oral Lasix to 40 mg daily on discharge. Add losartan and low-dose carvedilol to his regimen. Will set up for followup visit in 7-10 days. Importance of follow-up in the clinic was discussed with him. He shows understanding. Avoidance of salt loading was discussed. Also consider phase 2 cardiac rehabilitation. Gradually uptitrate neurohormonal modulation as outpatient as tolerated including addition of mineral corticoid inhibitor therapy as well as SGLT2 inhibitor therapy. (2) NSVT (nonsustained ventricular tachycardia): Status: Acute Assessment and Plan: Nonsustained ventricular tachycardia related to cardiomyopathy. ICD in place. Continue amiodarone therapy. (3) ICD (implantable cardioverter-defibrillator) in place: Status: Acute Assessment and Plan: ICD in place with noted mass on the ICD wire which is suggestive of most likely a thrombus with reduction size. He has no evidence of infection. Continue full oral anticoagulation with Eliquis. Follow-up limited echocardiogram in 4 weeks time to see if there is resolution of this mass on the ICD wire. Will follow up as outpatient. Thank you for allowing me to partake in his care Fall Risk Details Current Medications: Current Medications Generic Name Dose Route Start Last Admin Trade Name Mickey PRN Reason Stop Dose Admin Acetaminophen 650 mg 06/14/21 05:36 06/15/21 08:15 Acetaminophen 325 Mg Tablet PO 650 mg Q6H PRN Administration Pain, Mild (Pain Scale 1-3) Albuterol Sulfate 2 puff 06/15/21 20:00 06/18/21 08:10 Albuterol Sulfate 90 Mcg 8 Gm Inhaler INHALE 2 puff RQ4H BETTINA Administration Amiodarone HCl 200 mg 06/14/21 09:00 06/18/21 08:46 Amiodarone Hcl 200 Mg Tablet PO 200 mg DAILY BETTINA Administration Apixaban 5 mg 06/17/21 18:00 06/18/21 05:04 Apixaban 5 Mg Tablet PO 5 mg BID@0600,1800 BETTINA Administration Atorvastatin Calcium 40 mg 06/14/21 09:00 06/18/21 08:46 Atorvastatin Calcium 40 Mg Tablet PO 40 mg DAILY BETTINA Administration Docusate Sodium 100 mg 06/14/21 05:36 Docusate Sodium 100 Mg Capsule PO DAILY PRN Constipation Guaifenesin/Dextromethorphan 5 ml 06/14/21 21:36 06/17/21 22:31 Guaifenesin Dm 100/10/5 Ml 5 Ml Syrup PO 5 ml Q6H PRN Administration Cough Guaifenesin/Dextromethorphan 5 ml 06/15/21 11:18 Guaifenesin Dm 100/10/5 Ml 5 Ml Syrup PO Q6H PRN Cough Furosemide 200 mg/ Sodium 100 mls @ 5 mls/hr 06/14/21 10:00 06/17/21 17:51 Chloride IVCONT 10 mg/hr .Q20H BETTINA 5 mls/hr Administration 10 MG/HR Omeprazole 20 mg 06/15/21 06:30 06/18/21 05:04 Omeprazole 20 Mg Capsule.Dr PO 20 mg DAILY@0630 BETTINA Administration Ondansetron HCl 4 mg 06/14/21 05:36 Ondansetron Hcl 4 Mg/2 Ml Vial IVPUSH Q8H PRN Nausea and Vomiting Oxycodone HCl 5 mg 06/15/21 11:18 06/18/21 05:04 Oxycodone Hcl Immed Release 5 Mg Tablet PO 5 mg Q6H PRN Administration Pain, Severe (Pain Scale 7-10) Sertraline HCl 25 mg 06/14/21 21:00 06/17/21 22:32 Sertraline Hcl 25 Mg Tablet PO 25 mg BEDTIME BETTINA Administration Sodium Chloride 3 ml 06/14/21 08:00 06/18/21 08:46 0.9 % Sodium Chloride Flush 3 Ml Syringe IVFLUSH 3 ml QSHIFT BETTINA Administration Spironolactone 12.5 mg 06/14/21 09:00 06/18/21 08:46 Spironolactone 25 Mg Tablet PO 12.5 mg DAILY BETTINA Administration Protocol Time Spent With Patient Time: Total time spent is greater than 50% in coordination of care (as document ed) at patient's floor/unit and/or counseling patient: Time with patient: 25 - 35 minutes Progress Note: Quality Stroke Does the patient have a stroke diagnosis?: No Procedures Date of Service Date of Service: 06/18/21
--- NOTE | 2021-06-18 11:26 | P.DS_ITS ---
DS: Providers Provider Date of Service: 06/18/21 Date of admission: 06/14/21 05:25 Primary care physician: Dwain Andre MD Consults: 06/14/21 05:36 Consult to Cardiology Routine Consulting Provider: Macario Thacker Reason for consultation: CHF exacerbation Has provider been notified: No DS: Diagnosis Discharge Diagnosis (1) Acute on chronic systolic heart failure: Status: Acute (2) NSVT (nonsustained ventricular tachycardia): Status: Acute (3) ICD (implantable cardioverter-defibrillator) in place: Status: Acute DS: Medications Discharge Medications Home Medications: Home Medications Medication Instructions Recorded Confirmed albuterol sulfate 2 puff INHALATION Q4-6H 06/14/21 06/14/21 amiodarone 1 tab PO QAM 06/14/21 06/14/21 atorvastatin 1 tab PO QAM 06/14/21 06/14/21 diclofenac sodium 2 g TOPICAL QID PRN 06/14/21 06/14/21 hydrocodone-acetaminophen 1 tab PO Q4-6H PRN 06/14/21 06/14/21 losartan 1 tab PO QAM 06/14/21 06/14/21 sertraline 1 tab PO QPM 06/14/21 06/14/21 sildenafil [Viagra] 0.5 tab PO DAILY PRN 06/14/21 06/14/21 spironolactone 0.5 tab PO QAM 06/14/21 06/14/21 Previous Rx's Medication Instructions Recorded apixaban [Eliquis] 5 mg PO BID@0600,1800 #60 tab 06/18/21 carvedilol [Coreg] 3.125 mg PO BID #60 tab 06/18/21 furosemide [Lasix] 40 mg PO DAILY #30 tab 06/18/21 DS: Summary Hospital Course Hospital Course: Chief Complaint: Shortness of breath, chest pain This is a 51-year-old male with history of CHF with reduced ejection fraction of 20-25%, HTN, AICD, in SVT, who presents to the hospital with complaints of shortness of breath and chest pain. Patient reports that he was here in May for CHF exacerbation but left against medical advice, he continued to have shortness of breath throughout this time but has worsened over the past few days. Patient also reports orthopnea PND, lower extremity edema. Reports cough with minimal sputum production, no fever or chills. In regards to his chest pain, pain is localized to the left side, feels like someone is pressing on his chest, has been constant since 9:00 p.m., he has had previous episodes were they will radiating to his left arm, today's pain is nonradiating, severe discomfort. Patient reports that he was sent home with Lasix 20 mg daily with 20 mg p.r.n. for 3 or more lb of weight gain therefore he was taking 40 mg daily with no improvement of his shortness of breath or lower extremity edema. He denies any headache, change in vision, no abdominal pain nausea or vomiting, no diarrhea constipation, no urinary symptoms. No numbness or tingling. On arrival to the ED patient vitals significant for temp of 96.5?, heart rate of 110, respiratory rate of 26, blood pressure 126/95, satting 99% on room air Labs are significant for WBC count of 10.2, PT of 16.7, INR of 1.5, BUN of 14, creatinine of 1.18 with a previous baseline of 0.8, 1664. Troponin of 17 with a repeat of 14.8 EKG shows sinus tachycardia with no significant changes suggestive of ACS Chest x-ray shows cephalization with no evidence of pleural effusion on my read Hospital course 51-year-old male with past medical history of congestive heart failure presents with dyspnea as well as chest pain and diagnosed to have acute on chronic HFrEF, patient treated with IV Lasix drip With good response, leg edema and orthopnea resolved, patient appears euvolemic, patient was followed closely by Cardiology now being discharged home on Lasix 40 mg by mouth daily, dose of Coreg has been reduced to 3.125 mg twice daily, he has been recommended to have close outpatient follow-up with Cardiology for further medication adjustment, all home medications has been resumed. Tropes remain negative . In regard to Mass on ICD lead concern was clot vs vegetation -- favor clot as blood cx from last admission neg, repeat from 06/14 negative x 48 hours, patient treated with Lovenox and subsequently transitioned to PO Elqiquis 5mg bid NSVT patient has AICD in place, conintue amiodorone,coreg, his electrolytes and magnesium remains stable Time Spent with Patient Time attestation: Total time spent providing and/or coordinating discharge services: Discharge coordination time: Greater than 30 minutes Quality: Stroke Does the patient have a stroke diagnosis?: No Physical Exam Vital Signs: Vital Signs: Last Vital Signs Temp 97.4 F 06/18/21 07:39 Pulse 92 06/18/21 08:46 Resp 20 06/18/21 07:39 BP 126/87 06/18/21 08:46 Pulse Ox 99 06/18/21 07:39 Body Mass Index 30.0 General no acute distress. Neck no JVD. CVS regular rate rhythm, AICD site left upper anterior chest wall, with no redness or swelling. Respiratory lungs clear to auscultation, no respiratory distress, no wheeze, no rhonchi. Gastrointestinal abdomen soft, nontender, bowel sounds audible, no guarding , no rigidity. Extremities no edema. Neuro nonfocal Skin no rash DS: Data Data Completed and Pending Labs on day of discharge: Laboratory Results - last 24 hr 06/17/21 06/18/21 06/18/21 21:45 08:57 08:57 Sodium 140 138 Potassium 3.8 3.7 Chloride 98 97 Carbon Dioxide 29 29 Anion Gap 17 16 BUN 14 15 Creatinine 1.44 H 1.20 Estim Creat Clear Calc 62.9 73.3 Estimated GFR 52 > 60 Random Glucose 95 133 H D Calcium 9.4 9.5 Magnesium 2.0 1.9 Preliminary micro results at discharge 06/14/21 15:47 Blood Culture - Preliminary Blood - Venous No growth after 48 hours. 06/14/21 15:47 Blood Culture - Preliminary Blood - Venous No growth after 48 hours. Discharge Plan Discharge Patient Disposition: Home, Self-Care Discharge Diagnosis: Heart failure with reduced EF Mass on ICD lead question thrombus Nonsustained V-tach Chest pain Hypertension Referrals: Dwain Andre MD [Primary Care Provider] - 1 Week Discharge Medications: New Eliquis 5 mg Tablet 5 mg PO BID@0600,1800 Qty: 60 RF: 0 furosemide [Lasix] 40 mg tablet 40 mg PO DAILY Qty: 30 RF: 0 carvedilol [Coreg] 3.125 mg tablet 3.125 mg PO BID Qty: 60 RF: 0 Continued losartan 50 mg tablet 1 tab PO QAM RF: 0 atorvastatin 40 mg tablet 1 tab PO QAM RF: 0 amiodarone 200 mg tablet 1 tab PO QAM RF: 0 hydrocodone-acetaminophen 10-325 mg tablet 1 tab PO Q4-6H PRN (Reason: pain) RF: 0 sildenafil [Viagra] 100 mg tablet 0.5 tab PO DAILY PRN (Reason: Erectile Dysfunction) RF: 0 spironolactone 25 mg tablet 0.5 tab PO QAM RF: 0 sertraline 25 mg tablet 1 tab PO QPM RF: 0 albuterol sulfate 90 mcg/actuation HFA aerosol inhaler 2 puff inhalation Q4-6H RF: 0 diclofenac sodium 1 % gel 2 g topical QID PRN (Reason: mild pain) RF: 0 Discontinued carvedilol 25 mg tablet 1 tab PO BID RF: 0 furosemide 20 mg tablet 20 - 40 mg PO DAILY RF: 0 Discharge Orders: Discharge Order (Routine); Ordered 06/18/21 Ordered By: Juliann Agustin Diet: low fat, low cholesterol and low salt diet Activity on Discharge: As tolerated Stand Alone Forms: Patient Portal Discharge page Care Plan Goals: You have congestive heart failure and a mass on your AICD wire continue taking Lasix 40 mg by mouth daily and Eliquis 5 mg b.i.d. follow low-salt diet and return to check with any worsening shortness of breath, chest pain lightheadedness or dizziness. Health Concerns: Congestive heart failure/mass on AICD wire follow-up with cardiology in next 1 1-2 weeks in need repeat echocardiogram in 4 weeks Plan of Treatment: Follow-up with primary care physician in 7-10 days and with physics and astronomy professor Dr. Andre in 1-2 weeks Assessment: As above Discharge Date/Time: 06/18/21 12:00
--- NOTE | 2021-06-18 11:32 | MHC.CM.PN ---
Patient has been medically cleared for dc to home today, no services. Second IMM addressed with Patient, providing him with the original and placing a copy on the chart.
== END 2021-06-18 12:00 | disposition home or self-care (01) | DRG 314 ==
LOC: HO.ED 06-14 04:24 → HO.EDOVER 06-14 05:41 → HO.IMC 06-14 05:43
PROVIDERS: Family Medicine; Internal Medicine; Physician Assistant Medical; Admitting Provider Internal Medicine; Emergency Provider Student in an Organized Health Care Education/Training Program; PCP Internal Medicine; Visit Provider Hospitalist
DX: T82.867A Thrombosis due to cardiac prosthetic devices, implants and grafts, initial encounter (principal); I50.23 Acute on chronic systolic (congestive) heart failure; N17.9 Acute kidney failure, unspecified; I47.1 Supraventricular tachycardia; I11.0 Hypertensive heart disease with heart failure; E78.5 Hyperlipidemia, unspecified; F39 Unspecified mood [affective] disorder; Z20.822 Contact with and (suspected) exposure to COVID-19; Z91.19 Patient's noncompliance with other medical treatment and regimen; Z95.810 Presence of automatic (implantable) cardiac defibrillator; Z79.01 Long term (current) use of anticoagulants; Z79.899 Other long term (current) drug therapy
CPT/HCPCS: 36415; 71045; 80048; 80053; 80307; 81003; 82077; 83690; 83735; 83880; 84484; 85025; 85027; 85610; 87040; 87635; 93005; 93308; 94664; 99285; J1650; J1940; J2270; J3475

== ENCOUNTER → 2021-09-06 10:05 | Outpatient (BNVA) | payer MEDICARE, MEDICAID, SELFPAY | PROVIDERS: PCP Internal Medicine; Visit Provider Internal Medicine | DX: Z13.89 Encounter for screening for other disorder (principal) | CPT/HCPCS: 99212 ==

== ENCOUNTER 2021-09-06 12:20 | Inpatient (IN) | payer MEDICARE, MEDICAID, SELFPAY ==
[2021-09-06] VITALS (8 sets, daily range): BP systolic 109–138; BP diastolic 81–92; PULSE 90–103; RESP 14–22; TEMP 36.2–36.9; O2SAT 92–99; BMI 36.1
--- NOTE | ~2021-09-06 | XR_ITS ---
EXAMINATION: XR CHEST CLINICAL INFORMATION: SOB. COMPARISON: Chest 06/14/2021 TECHNIQUE: 2 views of the chest were obtained. FINDINGS: There is mild cardiomegaly with prominent pulmonary vascularity. There is a solitary pacer electrode in right ventricle. Lungs are expanded with patchy haziness seen in the right middle lobe. Rest of lungs are clear. No gross bony abnormality seen.. XR/XR chest 2V IMPRESSION: Mild patchy haziness in right middle lobe. It appears similar to previous exam 06/14/2021.
--- NOTE | 2021-09-06 12:41 | ECG_ITS ---
Test Reason : [place] Blood Pressure : / mmHG Vent. Rate : 098 BPM Atrial Rate : 098 BPM P-R Int : 172 ms QRS Dur : 090 ms QT Int : 388 ms P-R-T Axes : 062 -24 131 degrees QTc Int : 495 ms Normal sinus rhythm Possible Left atrial enlargement Nonspecific ST and T wave abnormality Prolonged QT Abnormal ECG When compared with ECG of 14-JUN-2021 00:08, No significant change was found Referred By: Generic ED Physician Electronically Signed By:MEHDI GARCIA
[2021-09-06 13:23] LABS: MANUAL DIFF FLAG NO
[2021-09-06 13:26] LABS: Basophils Percent Auto 0.4 % (0-2); Eosinophils Absolute Auto 0.1 X10*3/uL (0.0-0.4); Eosinophils Percent Auto 1.3 % (0-4); Hematocrit 40.3 % (42-52); Hemoglobin 13.3 g/dl (14.0-18.0); Imm Gran Abs Auto 0.04 X10*3/uL (0.00-0.03); Imm Gran Pct Auto 0.4 % (0.0-0.4); Lymphocytes Percent Auto 10.7 % (20-40); Mean Corpuscular Hemoglobin 29.7 pg (27.0-33.0); Mean Platelet Volume 9.6 fL (9.4-12.4); Monocytes Absolute Auto 0.5 X10*3/uL (0.1-1.2); Monocytes Percent Auto 5.6 % (2-11); Neutrophils Absolute Auto 7.6 X10*3/uL (2.0-8.3); Neutrophils Percent Auto 81.6 % (45-73); Platelet Count 283 X10*3/uL (160-400); Red Blood Count 4.48 X10*6/uL (4.60-5.80); Red Cell Distribution Width 18.7 % (11.0-16.0); White Blood Count 9.3 X10*3/uL (4.8-10.8)
[2021-09-06 13:34] LABS: Lactic Acid 1.7 mmol/L (0.5-2.0)
[2021-09-06 13:42] LABS: Alanine Aminotransferase 13 U/L (0-40); Albumin Level 3.4 g/dL (3.5-5.0); Alkaline Phosphatase 97 U/L (39-117); Anion Gap 13 (12-20); Aspartate Amino Transferase 17 U/L (5-37); Bilirubin Total 1.2 mg/dL (0.0-1.0); Blood Urea Nitrogen 12 mg/dL (9-16); Calcium 8.4 mg/dL (8.4-10.2); Carbon Dioxide 25 mmol/L (22-29); Chloride 105 mmol/L (96-108); Creatinine Clr Calc Pharmacy 119.7; Estimated Glomerular Filt Rate > 60; Glucose Random 138 mg/dL (60-115); Potassium 3.1 mmol/L (3.3-5.1); Sodium 140 mmol/L (135-145); Total Protein 6.3 g/dL (6.5-8.0)
[2021-09-06 13:47] LABS: B Type Natriuretic Peptide 2602 pg/mL (<100)
--- NOTE | 2021-09-06 16:26 | ED.GENADULT ---
HPI - General Adult General Chief complaint: General Medical Stated complaint: leg swelling Time Seen by Provider: 09/06/21 16:21 Source: patient Limitations: no limitations History of Present Illness HPI narrative: This is a 51-year-old male smoker with history of cardiomyopathy, congestive heart failure, who was seen in cardiology office today for worsened lower extremity edema, shortness of breath, abdominal ascites. The patient was noted to have erythema to his anterior abdominal wall which the patient states has been there for few days. Patient denies fever or chills. He has not previously had erythema like this. Dr. Andre was unsure if this could be cellulitis, sent the patient to the ED. patient states he has been compliant with his medications. He denies any chest pain. He does have a chronic cough. He has abdominal pain in the area of the erythema but denies any vomiting or diarrhea. Related Data Home Medications Medication Instructions Recorded Confirmed albuterol sulfate 90 mcg/actuation 2 puff INHALATION Q4-6H 06/14/21 09/06/21 aerosol inhaler amiodarone 200 mg tablet 1 tab PO QAM 06/14/21 09/06/21 atorvastatin 40 mg tablet 1 tab PO QAM 06/14/21 09/06/21 hydrocodone 10 mg-acetaminophen 1 tab PO Q4-6H PRN 06/14/21 09/06/21 325 mg tablet losartan 50 mg tablet 1 tab PO QAM 06/14/21 09/06/21 sertraline 25 mg tablet 1 tab PO QPM 06/14/21 09/06/21 spironolactone 25 mg tablet 0.5 tab PO QAM 06/14/21 09/06/21 Previous Rx's Medication Instructions Recorded apixaban 5 mg tablet (Eliquis) 5 mg PO BID@0600,1800 #60 tab 06/18/21 carvedilol 3.125 mg tablet (Coreg) 3.125 mg PO BID #60 tab 06/18/21 furosemide 40 mg tablet (Lasix) 40 mg PO DAILY #30 tab 07/30/21 Allergies Allergy/AdvReac Type Severity Reaction Status Date / Time No Known Allergies Allergy Verified 09/06/21 12:35 Review of Systems Review of Systems: Yes all other systems are reviewed and are negative Constitutional: Constitutional: Reports as per HPI and Denies fever(s) Eyes: Eyes: Reports as per HPI and Reports no additional eye complaints ENT: Reports system reviewed and no additional complaints, except as documented, Reports as per HPI, Denies nasal congestion, Denies nasal discharge and Denies sore throat Cardiovascular: Cardiovascular: Reports as per HPI, Denies chest pain and Reports dyspnea Respiratory: Respiratory: Reports as per HPI, Reports cough and Reports dyspnea Gastrointestinal: Gastrointestinal: Reports as per HPI, Denies abdominal pain, Denies diarrhea and Denies vomiting Genitourinary: Genitourinary: Reports as per HPI, Denies hematuria, Denies dysuria, Denies urinary frequency and Reports other (Scrotal swelling) Musculoskeletal: Musculoskeletal: Denies numbness and Reports other (Bilateral leg swelling, acute on chronic) Integumentary/Breasts: Skin/Breast: Reports as per HPI, Denies rash and Reports other (Erythema to abdominal wall) Neurologic: Reports as per HPI, Denies focal weakness, Denies numbness and Denies Sensory deficit (Neuro) Psychiatric: Psychiatric: Reports no additional psychiatric complaints and Reports as per HPI Endocrine: Endocrine: Reports no additional endocrine complaints and Reports as per HPI Hematologic/Lymphatic: Hematologic/Lymphatic: Reports no additional hematologic/lymphatic complaints, Reports as per HPI and Reports other (No peripheral edema) [facility] Past Medical History Medical History (Updated 09/06/21 @ 19:30 by Thai Valdovinos MD) Acute on chronic systolic heart failure Artificial cardiac pacemaker Back injuries Cardiomyopathy Chronic systolic HF (heart failure) HTN (hypertension) ICD (implantable cardioverter-defibrillator) in place NSVT (nonsustained ventricular tachycardia) Surgical History Hx of cardiac cath (~08/2015) Family History Family History Father Prostate cancer Mother No problems noted. Social History Social History Household Members: None Housing: Apartment Do you presently have visiting nurse or other home services: No Alcohol intake: never Patient Tobacco Use Status: Current everyday Tobacco user Tobacco use type: Cigarette Cigarettes Per Day: 5 Use of substances other than those prescribed or required for medical reasons: No Advance Directives: No Advance Directives Information Provided: No service: No Current occupational status: disabled Physical Exam Vital Signs: Vital Signs: Last Vital Signs Temp 97.1 F 09/06/21 17:49 Pulse 90 09/06/21 17:49 Resp 14 09/06/21 17:49 BP 109/81 09/06/21 17:49 Pulse Ox 93 09/06/21 17:49 Body Mass Index 36.1 Const: General: cooperative, no acute distress and alert Orientation/consciousness: patient oriented x3 HENMT: Head: Yes normal to inspection Eyes: General: appearance normal, both eyes and all related structures Eyelids: Yes eyelids normal Conjunctivae: conjunctivae normal Pupils: Equal, round and reactive pupils present Neck: Neck: Yes normal visual inspection and Yes supple Chest: Chest palpation & inspection: normal inspection of the chest Resp: Effort & Inspection: normal respiratory effort Auscultation: clear to auscultation bilaterally Cardio: Rate: regular rate Rhythm: regular rhythm Heart sounds: S1 normal heart sound present, S2 normal heart sound present, no gallops, no murmurs and no rubs GI: Palpation (GI): Soft to palpation, nontender and Other GI palpation findings present (Non-distended) Auscultation: normal bowel sounds Skin: Other: Erythema to the abdominal wall, more intense in the lower abdomen, warm to touch, also with prominent venous distention in the lower abdomen, diffuse tenderness. General skin exam: no rashes or lesions noted Neuro: General: patient oriented x3, no focal motor deficits and CN's II-XI intact bilaterally Cranial nerves: Yes Equal, round and reactive pupils present Cognition (Neuro): normal cognition Motor exam (neuro): 5/5 motor strength present throughout Sensory Exam: No Sensory deficit (Neuro) Extrem: Other: 3+ pitting edema toe the legs, from the feet through to the thighs, no significant skin changes General: No normal to inspection and Yes no pedal edema Psych: Appearance: grossly normal Affect: normal affect Medical Decision Making MDM Narrative Medical decision making narrative: Patient with known cardiomyopathy and CHF, right-sided heart failure, with worsening ascites and peripheral edema. Patient also has new erythema to his abdominal wall as well as distended abdominal wall veins. Cellulitis is a possibility. Patient afebrile, white blood cell count normal. Less likely spontaneous bacterial peritonitis, though would be unusual for this to manifest itself as erythema to the abdomen. Given erythema and likely cellulitis, obtaining a sample of the fluid via the abdominal wall that is contraindicated. Will start broad-spectrum antibiotics as well as diuretics. Patient is being admitted to the hospitalist service Lab Data Lab results reviewed: Yes I reviewed the patient's lab results. Result diagrams: 09/06/21 13:11 09/06/21 13:11 Labs: Lab Results 09/06/21 09/06/21 09/06/21 Range/Units 13:11 13:11 13:11 WBC 9.3 (4.8-10.8) X10*3/uL RBC 4.48 L (4.60-5.80) X10*6/uL Hgb 13.3 L (14.0-18.0) g/dl Hct 40.3 L (42-52) % MCV 90.0 (80-98) fL MCH 29.7 (27.0-33.0) pg MCHC 33.0 (31.0-36.0) g/dl RDW 18.7 H (11.0-16.0) % Plt Count 283 (160-400) X10*3/uL MPV 9.6 (9.4-12.4) fL Immature Gran % (Auto) 0.4 (0.0-0.4) % Neut % (Auto) 81.6 H (45-73) % Lymph % (Auto) 10.7 L (20-40) % [place] % (Auto) 5.6 (2-11) % Eos % (Auto) 1.3 (0-4) % Baso % (Auto) 0.4 (0-2) % Lymph # (Auto) 1.0 L (1.2-4.9) X10*3/uL [place] # (Auto) 0.5 (0.1-1.2) X10*3/uL Eos # (Auto) 0.1 (0.0-0.4) X10*3/uL Baso # (Auto) 0.0 (0.0-0.2) X10*3/uL Abs Immat Gran (auto) 0.04 H (0.00-0.03) X10*3/uL Absolute Neuts (auto) 7.6 (2.0-8.3) X10*3/uL Absolute Nucleated RBC 0.000 (0.0-0.012) X10*3/uL Nucleated RBC % (auto) 0.0 (0.0-0.2) /100WBC Sodium 140 (135-145) mmol/L Potassium 3.1 L (3.3-5.1) mmol/L Chloride 105 (96-108) mmol/L Carbon Dioxide 25 (22-29) mmol/L Anion Gap 13 (12-20) BUN 12 (9-16) mg/dL Creatinine 0.86 (0.5-1.4) mg/dL Estim Creat Clear Calc 119.7 Estimated GFR > 60 Random Glucose 138 H (60-115) mg/dL Lactic Acid (0.5-2.0) mmol/L Calcium 8.4 D (8.4-10.2) mg/dL Total Bilirubin 1.2 H (0.0-1.0) mg/dL AST 17 (5-37) U/L ALT 13 (0-40) U/L Alkaline Phosphatase 97 (39-117) U/L B-Natriuretic Peptide 2602 H (<100) pg/mL Total Protein 6.3 L (6.5-8.0) g/dL Albumin 3.4 L (3.5-5.0) g/dL 09/06/21 Range/Units 13:11 WBC (4.8-10.8) X10*3/uL RBC (4.60-5.80) X10*6/uL Hgb (14.0-18.0) g/dl Hct (42-52) % MCV (80-98) fL MCH (27.0-33.0) pg MCHC (31.0-36.0) g/dl RDW (11.0-16.0) % Plt Count (160-400) X10*3/uL MPV (9.4-12.4) fL Immature Gran % (Auto) (0.0-0.4) % Neut % (Auto) (45-73) % Lymph % (Auto) (20-40) % [place] % (Auto) (2-11) % Eos % (Auto) (0-4) % Baso % (Auto) (0-2) % Lymph # (Auto) (1.2-4.9) X10*3/uL [place] # (Auto) (0.1-1.2) X10*3/uL Eos # (Auto) (0.0-0.4) X10*3/uL Baso # (Auto) (0.0-0.2) X10*3/uL Abs Immat Gran (auto) (0.00-0.03) X10*3/uL Absolute Neuts (auto) (2.0-8.3) X10*3/uL Absolute Nucleated RBC (0.0-0.012) X10*3/uL Nucleated RBC % (auto) (0.0-0.2) /100WBC Sodium (135-145) mmol/L Potassium (3.3-5.1) mmol/L Chloride (96-108) mmol/L Carbon Dioxide (22-29) mmol/L Anion Gap (12-20) BUN (9-16) mg/dL Creatinine (0.5-1.4) mg/dL Estim Creat Clear Calc Estimated GFR Random Glucose (60-115) mg/dL Lactic Acid 1.7 (0.5-2.0) mmol/L Calcium (8.4-10.2) mg/dL Total Bilirubin (0.0-1.0) mg/dL AST (5-37) U/L ALT (0-40) U/L Alkaline Phosphatase (39-117) U/L B-Natriuretic Peptide (<100) pg/mL Total Protein (6.5-8.0) g/dL Albumin (3.5-5.0) g/dL Imaging Data Chest x-ray: Radiologist's impression: IMPRESSION: Mild patchy haziness in right middle lobe. It appears similar to previous exam 06/14/2021. ECG Data Attestation: I personally reviewed and interpreted this ECG as follows: Interpretation: Sinus rhythm with a rate of 98. For wave progression. left atrial enlargement, nonspecific ST and T-wave abnormalities partially in leads V5 V6, 1 in now.. EKG similar to 1 dated 06/14/2021 Discharge Plan Discharge Clinical Impression: Congestive heart failure, Hypokalemia, Cellulitis Patient Disposition: Admitted As Inpatient
[2021-09-06] MEDS: Furosemide 100 MG/10 ML VIAL 80 MG IVPUSH (16:50)
[2021-09-06] MEDS: Potassium Bicarbonate/Cit AC 25 MEQ TABLET.EFF PO (16:50)
[2021-09-06] MEDS: Morphine Sulfate 4 MG/ML CARTRIDGE IVPUSH (17:06)
[2021-09-06] MEDS: Piperacillin Sodium/Tazobactam 4.5 GM in 0.9 % Sodium Chloride 100 ML IV (17:07)
[2021-09-06] MEDS: vancomycin HCL 1,000 MG, vancomycin HCL 750 MG in 0.9 % Sodium Chloride 500 ML 267.5 MG IV (17:55)
--- NOTE | 2021-09-06 17:57 | P.HPHOSP_ITS ---
History of Present Illness Date of Service: 09/06/21 Attending physician on admission: Juliann Agustin Chief Complaint: Lower extremity edema, abdominal pain 51-year-old male with history of CHF with reduced ejection fraction of 20-25%, HTN, AICD, presents to the hospital?due to worsening lower extremity edema of 1 week duration, patient ran out of his diuretics and was scheduled to be seen by manager e commerce, at cardiology office patient was noted to have significant lower extremity edema redness of abdominal wall therefore patient was referred to [facility] for further evaluation and treatment, according to patient he noticed lower extremity edema for last 1 week that is gradually progressing associated with abdominal distension, scrotal swelling, and this morning patient felt palpitations and also shortness of breath, he usually takes 40 mg of Lasix daily and has been recommended to take additional dose when there is 3 lb weight gain but since he ran out of his prescription he was unable to take Lasix, patient denies any fever chills, denies nausea, vomiting or diar delbert, in the emergency room, patient noted to have mild tachycardia tachypnea, oxygenation stable at 99, noted to have mild hypokalemia, patient treated with IV Lasix, IV vancomycin and now being admitted to [facility] due to acute on chronic systolic congestive Heart failure and abdominal wall cellulitis. Review of Systems Review of Systems: General no headache no dizziness no fever chills. CVS chest pain with coughing, palpitation. Respiratory productive cough, positive shortness of breath. Gastrointestinal no nausea no vomiting, abdominal pain Yes all other systems are reviewed and are negative [facility] Medical History (Updated 09/06/21 @ 18:09 by Juliann Agustin MD) Acute on chronic systolic heart failure Artificial cardiac pacemaker Back injuries Cardiomyopathy Chronic systolic HF (heart failure) HTN (hypertension) ICD (implantable cardioverter-defibrillator) in place NSVT (nonsustained ventricular tachycardia) Functional capacity: independent ambulation Family History Father Prostate cancer Mother No problems noted. Pertinent family history: Father in her early 40s with premature coronary artery disease, mother had has no health issues Surgical History Hx of cardiac cath (~08/2015) Social History Household Members: None Housing: Apartment Do you presently have visiting nurse or other home services: No Alcohol intake: never Patient Tobacco Use Status: Current everyday Tobacco user Tobacco use type: Cigarette Cigarettes Per Day: 5 Use of substances other than those prescribed or required for medical reasons: No Advance Directives: No Advance Directives Information Provided: No service: No Current occupational status: disabled Meds Allergies Allergy/AdvReac Type Severity Reaction Status Date / Time No Known Allergies Allergy Verified 09/06/21 12:35 Active Medications: Current Medications Acetaminophen (Acetaminophen 325 Mg Tablet) 650 mg PO Q6H PRN PRN Reason: Pain, Mild (Pain Scale 1-3) Furosemide (Furosemide 100 Mg/10 Ml Vial) 80 mg IVPUSH Q12H BETTINA; Protocol Vancomycin HCl 1,000 mg/Vancomycin HCl 750 mg/ Sodium Chloride 535 mls @ 267.5 mls/hr IV ONCE ONE Stop: 09/06/21 18:45 Last Admin: 09/06/21 17:55 Dose: 267.5 mls/hr Documented by: Cefazolin Sodium 1 gm/ Sodium (Chloride) 50 mls @ 100 mls/hr IV Q8H BETTINA Ondansetron HCl (Ondansetron Hcl 4 Mg/2 Ml Vial) 4 mg IVPUSH Q8H PRN PRN Reason: Nausea and Vomiting Pharmacy Consult (Consult Rx Perform Med Rec) 1 each MISCELLANE ONCE PRN PRN Reason: Consult order Potassium Chloride (Potassium Chloride Er 20 Meq Tab.Er.Prt) 20 meq PO BID BETTINA Sodium Chloride (0.9 % Sodium Chloride Flush 3 Ml Syringe) 3 ml IVFLUSH QSHIFT [facility] Home Medications Medication Instructions Recorded Confirmed Last Taken Type albuterol sulfate 90 mcg/actuation 2 puff INHALATION Q4-6H 06/14/21 09/06/21 09/06/21 History aerosol inhaler amiodarone 200 mg tablet 1 tab PO QAM 06/14/21 09/06/21 09/06/21 History atorvastatin 40 mg tablet 1 tab PO QAM 06/14/21 09/06/21 09/06/21 History hydrocodone 10 mg-acetaminophen 1 tab PO Q4-6H PRN 06/14/21 09/06/21 09/05/21 History 325 mg tablet losartan 50 mg tablet 1 tab PO QAM 06/14/21 09/06/21 09/06/21 History sertraline 25 mg tablet 1 tab PO QPM 06/14/21 09/06/21 09/05/21 History spironolactone 25 mg tablet 0.5 tab PO QAM 06/14/21 09/06/21 09/06/21 History Physical Exam Vital Signs and Narrative: Vital Signs: Last Vital Signs Temp 98.5 F 09/06/21 12:36 Pulse 96 09/06/21 16:10 Resp 18 09/06/21 17:06 BP 121/91 H 09/06/21 16:10 Pulse Ox 99 09/06/21 16:10 Body Mass Index 36.1 General alert oriented x3, mild distress due to abdominal pain and diffuse edema. Neck supple,pos. JVD. CVS regular rate rhythm, Respiratory lungs bilateral basilar crackles,mild respiratory distress, no wheeze, no rhonchi. Gastrointestinal abdomen obese, distended, tender to palpation , hyperemia, warm to touch, no fluctuation, no rebound, no rigidity, bowel sounds audible , no guarding , no rigidity. Extremities bilateral pitting edema Scrotal swelling Neuro nonfocal patient moving all 4 extremity speech clear. Skin no rash Psych appropriate affect Results Labs CBC and Chem 7: 09/06/21 13:11 09/06/21 13:11 Labs: Laboratory Results - last 24 hr 09/06/21 09/06/21 09/06/21 13:11 13:11 13:11 MCV 90.0 MCH 29.7 MCHC 33.0 RDW 18.7 H Plt Count 283 MPV 9.6 Immature Gran % (Auto) 0.4 Neut % (Auto) 81.6 H Lymph % (Auto) 10.7 L [place] % (Auto) 5.6 Eos % (Auto) 1.3 Baso % (Auto) 0.4 Lymph # (Auto) 1.0 L [place] # (Auto) 0.5 Eos # (Auto) 0.1 Baso # (Auto) 0.0 Abs Immat Gran (auto) 0.04 H Absolute Neuts (auto) 7.6 Absolute Nucleated RBC 0.000 Nucleated RBC % (auto) 0.0 Anion Gap 13 Estim Creat Clear Calc 119.7 Estimated GFR > 60 Random Glucose 138 H Lactic Acid Calcium 8.4 D Total Bilirubin 1.2 H AST 17 ALT 13 Alkaline Phosphatase 97 B-Natriuretic Peptide 2602 H Total Protein 6.3 L Albumin 3.4 L 09/06/21 13:11 MCV MCH MCHC RDW Plt Count MPV Immature Gran % (Auto) Neut % (Auto) Lymph % (Auto) [place] % (Auto) Eos % (Auto) Baso % (Auto) Lymph # (Auto) [place] # (Auto) Eos # (Auto) Baso # (Auto) Abs Immat Gran (auto) Absolute Neuts (auto) Absolute Nucleated RBC Nucleated RBC % (auto) Anion Gap Estim Creat Clear Calc Estimated GFR Random Glucose Lactic Acid 1.7 Calcium Total Bilirubin AST ALT Alkaline Phosphatase B-Natriuretic Peptide Total Protein Albumin Imaging Radiologist's Impressions: Impressions Chest X-Ray 09/06/21 12:39 IMPRESSION: Mild patchy haziness in right middle lobe. It appears similar to previous exam 06/14/2021. Assessment and Plan (1) NICM (nonischemic cardiomyopathy): Status: Acute (2) Acute systolic (congestive) heart failure: Status: Acute (3) ICD (implantable cardioverter-defibrillator) in place: Status: Acute (4) HTN (hypertension): Status: Acute (5) Abdominal wall cellulitis: Status: Acute (6) Hypokalemia: Status: Acute 51-year-old gentleman with past medical history significant for nonischemic cardiomyopathy with EF 20-25% status post AICD placement presented to [facility] due to worsening lower extremity edema associated with abdominal wall distension redness and pain patient has been diagnosed to have acute on chronic systolic congestive Heart failure abdominal wall cellulitis Acute on chronic decompensated systolic heart failure with nonischemic cardiomyopathy/status post AICD/decreased right ventricular function Patient with generalized edema, ascites Will admit patient to telemetry unit, placed on IV Lasix 80 mg b.i.d. 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 will change to IV Lasix drip Sepsis due to Abdominal wall cellulitis Likely due to small area of skin breakdown, will place on IV Kefzo Follow blood cultures x2 Patient may sepsis criteria with tachypnea, tachycardia,nl wbc and lactic acid. 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
[2021-09-06] MEDS: Albuterol Sulfate 90 MCG 8 GM INHALER 2 PUFF INHALE (19:41)
[2021-09-06 19:57] LABS: COVID-19 Test Negative (Negative)
[2021-09-06] MEDS: Sertraline HCL 25 MG TABLET PO (22:05)
[2021-09-06] MEDS: Atorvastatin Calcium 40 MG TABLET PO (22:05)
[2021-09-06] MEDS: Potassium Chloride ER 20 MEQ TAB.ER.PRT PO (22:05)
[2021-09-06] MEDS: Apixaban 5 MG TABLET PO (22:06)
[2021-09-06] MEDS: carvediloL 3.125 MG TABLET PO (22:06)
[2021-09-06] MEDS: Acetaminophen 325 MG TABLET 650 MG PO (22:09)
[2021-09-07] VITALS (8 sets, daily range): BP systolic 94–132; BP diastolic 66–90; PULSE 82–99; RESP 16–20; TEMP 36.4–36.6; O2SAT 92–99
[2021-09-07] MEDS: Albuterol Sulfate 90 MCG 8 GM INHALER 2 PUFF INHALE ×3 (00:13→07:38)
[2021-09-07 07:27] LABS: Anion Gap 11 (12-20); Blood Urea Nitrogen 9 mg/dL (9-16); Calcium 8.5 mg/dL (8.4-10.2); Carbon Dioxide 28 mmol/L (22-29); Chloride 106 mmol/L (96-108); Creatinine Clr Calc Pharmacy 137.2; Estimated Glomerular Filt Rate > 60; Glucose Random 97 mg/dL (60-115); Magnesium 1.8 mg/dL (1.6-2.6); Potassium 3.2 mmol/L (3.3-5.1); Sodium 142 mmol/L (135-145)
[2021-09-07] MEDS: Furosemide 100 MG/10 ML VIAL 80 MG IVPUSH (07:36)
--- NOTE | 2021-09-07 08:41 | MHC.CM.PN ---
CM met with Patient at bedside and addressed IMM with him, providing him with the original and placing a copy on the chart. Patient lives alone in an apartment and he is functionally independent. PCP is Dr. Mike Duong. Mother will provide transportation to home.
[2021-09-07] MEDS: Spironolactone 25 MG TABLET 12.5 MG PO (08:58)
[2021-09-07] MEDS: Losartan Potassium 50 MG TABLET PO (08:58)
[2021-09-07] MEDS: Amiodarone HCL 200 MG TABLET PO (08:58)
[2021-09-07] MEDS: Potassium Chloride ER 20 MEQ TAB.ER.PRT PO (08:58)
[2021-09-07] MEDS: Apixaban 5 MG TABLET PO (08:58)
[2021-09-07] MEDS: carvediloL 3.125 MG TABLET PO (08:58)
--- NOTE | 2021-09-07 10:30 | HO.PM.IMPN ---
Subjective Subjective Date of Service: 09/07/21 Interval History: Being followed for acute on chronic systolic congestive Heart failure and abdominal wall cellulitis, Patient complaining of persistent bilateral lower extremity discomfort, abdominal wall burning pain, also complaining of back pain that is chronic, denies nausea, no vomiting, no fever chills no other acute issues overnight Review of Systems General no headache no dizziness, no fever chills. CVS no chest pain, no palpitation. Respiratory no cough, sob Gastrointestinal no nausea, no vomiting, abdominal pain Physical Exam Vital Signs: Vital Signs: Last Vital Signs Temp 97.7 F 09/07/21 08:00 Pulse 99 09/07/21 08:00 Resp 20 09/07/21 08:00 BP 132/90 H 09/07/21 08:00 Pulse Ox 97 09/07/21 08:00 Body Mass Index 36.1 GENERAL : Awake alert, mild distress due to shortness of breath NECK: JVD HEART: regular rate and rhythm, no murmurs LUNGS: clear to auscultation bilaterally, no wheeze, no rhonchi, few basilar crackles ABDOMEN: Significant erythema abdominal wall, positive warmth and tenderness to palpation, distended EXTREMITIES: 2+ edema., good peripheral pulses NEUROLOGIC: No gross deficits Objective Data Active Medications Acetaminophen (Acetaminophen 325 Mg Tablet) 650 mg PO Q6H PRN PRN Reason: Pain, Mild (Pain Scale 1-3) Last Admin: 09/06/21 22:09 Dose: 650 mg Documented by: RILEY Hydrocodone Bitart/Acetaminophen (Hydrocodone Bit/Acetam 10/325 Tablet) 1 tab PO Q6H PRN PRN Reason: Pain, Severe (Pain Scale 7-10) Albuterol Sulfate (Albuterol Sulfate 90 Mcg 8 Gm Inhaler) 2 puff INHALE RQ4H [facility] Last Admin: 09/07/21 07:38 Dose: 2 puff Documented by: SUKHJINDER Amiodarone HCl (Amiodarone Hcl 200 Mg Tablet) 200 mg PO DAILY [facility] Last Admin: 09/07/21 08:58 Dose: 200 mg Documented by: DERIAN Apixaban (Apixaban 5 Mg Tablet) 5 mg PO BID [facility] Last Admin: 09/07/21 08:58 Dose: 5 mg Documented by: DERIAN Atorvastatin Calcium (Atorvastatin Calcium 40 Mg Tablet) 40 mg PO BEDTIME [facility] Last Admin: 10/07/21 22:05 Dose: 40 mg Documented by: RILEY Carvedilol (Carvedilol 3.125 Mg Tablet) 3.125 mg PO BID [facility]; Protocol Last Admin: 09/07/21 08:58 Dose: 3.125 mg Documented by: DERIAN Furosemide (Furosemide 100 Mg/10 Ml Vial) 80 mg IVPUSH Q12H BETTINA; Protocol Last Admin: 09/07/21 07:36 Dose: 80 mg Documented by: SUKHJINDER Cefazolin Sodium 1 gm/ Sodium (Chloride) 50 mls @ 100 mls/hr IV Q8H [facility] Last Infusion: 09/07/21 10:13 Dose: 0 mls/hr Documented by: DERIAN Losartan Potassium (Losartan Potassium 50 Mg Tablet) 50 mg PO DAILY [facility]; Protocol Last Admin: 09/07/21 08:58 Dose: 50 mg Documented by: DERIAN Nicotine Polacrilex (Nicotine Polacrilex 2 Mg Gum) 2 mg BUCCAL Q2H PRN PRN Reason: Nicotine Cravings Ondansetron HCl (Ondansetron Hcl 4 Mg/2 Ml Vial) 4 mg IVPUSH Q8H PRN PRN Reason: Nausea and Vomiting Pharmacy Consult (Consult Rx Perform Med Rec) 1 each MISCELLANE ONCE PRN PRN Reason: Consult order Potassium Chloride (Potassium Chloride Er 20 Meq Tab.Er.Prt) 20 meq PO BID [facility] Last Admin: 09/07/21 08:58 Dose: 20 meq Documented by: DERIAN Sertraline HCl (Sertraline Hcl 25 Mg Tablet) 25 mg PO BEDTIME [facility] Last Admin: 09/06/21 22:05 Dose: 25 mg Documented by: RILEY Sodium Chloride (0.9 % Sodium Chloride Flush 3 Ml Syringe) 3 ml IVFLUSH QSHIFT [facility] Last Admin: 09/07/21 07:37 Dose: Not Given Documented by: SUKHJINDER Non-Admin Reason: IV Running Spironolactone (Spironolactone 25 Mg Tablet) 12.5 mg PO DAILY [facility]; Protocol Last Admin: 09/07/21 08:58 Dose: 12.5 mg Documented by: DERIAN Labs CBC & Chem 7: 09/06/21 13:11 09/07/21 06:34 Labs: Laboratory Results - last 24 hr 09/06/21 09/06/21 09/06/21 13:11 13:11 13:11 MCV 90.0 MCH 29.7 MCHC 33.0 RDW 18.7 H Plt Count 283 MPV 9.6 Immature Gran % (Auto) 0.4 Neut % (Auto) 81.6 H Lymph % (Auto) 10.7 L [place] % (Auto) 5.6 Eos % (Auto) 1.3 Baso % (Auto) 0.4 Lymph # (Auto) 1.0 L [place] # (Auto) 0.5 Eos # (Auto) 0.1 Baso # (Auto) 0.0 Abs Immat Gran (auto) 0.04 H Absolute Neuts (auto) 7.6 Absolute Nucleated RBC 0.000 Nucleated RBC % (auto) 0.0 Anion Gap 13 Estim Creat Clear Calc 119.7 Estimated GFR > 60 Random Glucose 138 H Lactic Acid Calcium 8.4 D Magnesium Total Bilirubin 1.2 H AST 17 ALT 13 Alkaline Phosphatase 97 B-Natriuretic Peptide 2602 H Total Protein 6.3 L Albumin 3.4 L COVID-19 ([facility]) [email or web address] 09/06/21 09/06/21 09/07/21 13:11 19:36 06:34 MCV MCH MCHC RDW Plt Count MPV Immature Gran % (Auto) Neut % (Auto) Lymph % (Auto) [place] % (Auto) Eos % (Auto) Baso % (Auto) Lymph # (Auto) [place] # (Auto) Eos # (Auto) Baso # (Auto) Abs Immat Gran (auto) Absolute Neuts (auto) Absolute Nucleated RBC Nucleated RBC % (auto) Anion Gap 11 L Estim Creat Clear Calc 137.2 Estimated GFR > 60 Random Glucose 97 Lactic Acid 1.7 Calcium 8.5 Magnesium 1.8 Total Bilirubin AST ALT Alkaline Phosphatase B-Natriuretic Peptide Total Protein Albumin COVID-19 ([facility]) Negative [email or web address] See Note Assessment and Plan (1) NICM (nonischemic cardiomyopathy): Status: Acute (2) Acute systolic (congestive) heart failure: Status: Acute (3) ICD (implantable cardioverter-defibrillator) in place: Status: Acute (4) HTN (hypertension): Status: Acute (5) Cardiomyopathy: Status: Acute (6) Cellulitis: Status: Acute Assessment and Plan: 51-year-old gentleman with past medical history significant for nonischemic cardiomyopathy with EF 20-25% status post AICD placement presented to [facility] due to worsening lower extremity edema associated with abdominal wall distension redness and pain patient has been diagnosed to have acute on chronic systolic congestive Heart failure abdominal wall cellulitis Acute on chronic decompensated systolic heart failure with nonischemic cardiomyopathy/status post AICD/decreased right ventricular function Persistent shortness of breath, generalized edema and JVD Continue IV Lasix 80 mg b.i.d. case discussed with Dr. Thacker he recommend to add metolazone time 1 dose half an hour before IV Lasix Home dose of Lasix 40 mg BNP significantly elevated at 2602, limited echo June 20 showed EF 15-20% severely decreased right ventricular systolic function, patient has a mobile mass attached to the ICD lead, moderate to severe tricuspid valve regurgitation continue losartan and Coreg, 2 L negative, follow Is&Os daily weight follow BMP and BNP and taper dose of Lasix Sepsis due to Abdominal wall cellulitis Persistent hyperemia, no fevers no chills normal WBC count and lactic acid Continue IV Kefzo day 2 Follow blood cultures x2 Symptoms of sepsis resolving will obtain ID consult Chronic back pain will resume home dose of Tylenol with codeine History of mobile mass on ICD lead Continue Eliquis History of nonsustained V-tach continue amiodarone/status post AICD Hypertension continue losartan Hyperlipidemia continue statin Mood continue sertraline DVT prophylaxis on Eliquis Code status full code Quality Stroke Does the patient have a stroke diagnosis?: No VTE Prior VTE?: No VTE Risk Level:: Medical - moderate - high VTE Device Contraindication: Treatment Not Indicated VTE Drug Contraindication: Treatment Not Indicated
--- NOTE | 2021-09-07 10:41 | PM.CNCAR ---
History of Present Illness History of Present Illness Date of Service: 09/07/21 Requesting physician: Juliann Agustin Chief complaint: CHF Narrative: 51-year-old male with known NICM EF 20% here for ADCHF. He also has abdominal wall cellulitis. SOB and edematous. Significantly overloaded. Saying he was watching diet and taking his medications regularly. He has been started on IV Lasix but continues to be SOB and overloaded. [facility]LY [facility] Past Medical History Medical History (Updated 09/06/21 @ 19:30 by Thai Valdovinos MD) Acute on chronic systolic heart failure Artificial cardiac pacemaker Back injuries Cardiomyopathy Chronic systolic HF (heart failure) HTN (hypertension) ICD (implantable cardioverter-defibrillator) in place NSVT (nonsustained ventricular tachycardia) Functional capacity: independent ambulation Family History Family History Father Prostate cancer Mother No problems noted. Surgical History Surgical History Hx of cardiac cath (~08/2015) Social History Social History Household Members: None Housing: Apartment Do you presently have visiting nurse or other home services: No Alcohol intake: never Patient Tobacco Use Status: Current everyday Tobacco user Tobacco use type: Cigarette Cigarettes Per Day: 5 service: No Current occupational status: disabled Meds Allergies Allergy/AdvReac Type Severity Reaction Status Date / Time No Known Allergies Allergy Verified 09/06/21 12:35 Active Medications: Current Medications Acetaminophen (Acetaminophen 325 Mg Tablet) 650 mg PO Q6H PRN PRN Reason: Pain, Mild (Pain Scale 1-3) Last Admin: 09/06/21 22:09 Dose: 650 mg Documented by: Hydrocodone Bitart/Acetaminophen (Hydrocodone Bit/Acetam 10/325 Tablet) 1 tab PO Q6H PRN PRN Reason: Pain, Severe (Pain Scale 7-10) Albuterol Sulfate (Albuterol Sulfate 90 Mcg 8 Gm Inhaler) 2 puff INHALE RQ4H BETTINA Last Admin: 09/07/21 07:38 Dose: 2 puff Documented by: Amiodarone HCl (Amiodarone Hcl 200 Mg Tablet) 200 mg PO DAILY BETTINA Last Admin: 09/07/21 08:58 Dose: 200 mg Documented by: Apixaban (Apixaban 5 Mg Tablet) 5 mg PO BID [facility] Last Admin: 09/07/21 08:58 Dose: 5 mg Documented by: Atorvastatin Calcium (Atorvastatin Calcium 40 Mg Tablet) 40 mg PO BEDTIME [facility] Last Admin: 09/06/21 22:05 Dose: 40 mg Documented by: Carvedilol (Carvedilol 3.125 Mg Tablet) 3.125 mg PO BID [facility]; Protocol Last Admin: 09/07/21 08:58 Dose: 3.125 mg Documented by: Furosemide (Furosemide 100 Mg/10 Ml Vial) 80 mg IVPUSH Q12H BETTINA; Protocol Last Admin: 09/07/21 07:36 Dose: 80 mg Documented by: Cefazolin Sodium 1 gm/ Sodium (Chloride) 50 mls @ 100 mls/hr IV Q8H [facility] Last Infusion: 09/07/21 10:13 Dose: Infused Documented by: Losartan Potassium (Losartan Potassium 50 Mg Tablet) 50 mg PO DAILY [facility]; Protocol Last Admin: 09/07/21 08:58 Dose: 50 mg Documented by: Nicotine Polacrilex (Nicotine Polacrilex 2 Mg Gum) 2 mg BUCCAL Q2H PRN PRN Reason: Nicotine Cravings Ondansetron HCl (Ondansetron Hcl 4 Mg/2 Ml Vial) 4 mg IVPUSH Q8H PRN PRN Reason: Nausea and Vomiting Pharmacy Consult (Consult Rx Perform Med Rec) 1 each MISCELLANE ONCE PRN PRN Reason: Consult order Potassium Chloride (Potassium Chloride Er 20 Meq Tab.Er.Prt) 20 meq PO BID [facility] Last Admin: 09/07/21 08:58 Dose: 20 meq Documented by: Sertraline HCl (Sertraline Hcl 25 Mg Tablet) 25 mg PO BEDTIME [facility] Last Admin: 09/06/21 22:05 Dose: 25 mg Documented by: Sodium Chloride (0.9 % Sodium Chloride Flush 3 Ml Syringe) 3 ml IVFLUSH QSHIFT [facility] Last Admin: 09/07/21 07:37 Dose: Not Given Documented by: Spironolactone (Spironolactone 25 Mg Tablet) 12.5 mg PO DAILY [facility]; Protocol Last Admin: 09/07/21 08:58 Dose: 12.5 mg Documented by: Home Medications Medication Instructions Recorded Confirmed Last Taken Type albuterol sulfate 90 mcg/actuation 2 puff INHALATION Q4-6H 06/14/21 09/06/21 09/06/21 History aerosol inhaler amiodarone 200 mg tablet 1 tab PO QAM 06/14/21 09/06/21 09/06/21 History atorvastatin 40 mg tablet 1 tab PO QAM 06/14/21 09/06/21 09/06/21 History hydrocodone 10 mg-acetaminophen 1 tab PO Q4-6H PRN 06/14/21 09/06/21 09/05/21 History 325 mg tablet losartan 50 mg tablet 1 tab PO QAM 06/14/21 09/06/21 09/06/21 History sertraline 25 mg tablet 1 tab PO QPM 06/14/21 09/06/21 09/05/21 History spironolactone 25 mg tablet 0.5 tab PO QAM 06/14/21 09/06/21 09/06/21 History Physical Exam Vital Signs: Vital Signs: Last Vital Signs Temp 97.7 F 09/07/21 08:00 Pulse 99 09/07/21 08:00 Resp 20 09/07/21 08:00 BP 132/90 H 09/07/21 08:00 Pulse Ox 97 09/07/21 08:00 Body Mass Index 36.1 GENERAL APPEARANCE: Distressed, SOB NECK: no carotid bruit, JVD to angle of jaw. SKIN: no suspicious lesions, warm and dry. HEART: no murmurs, regular rate and rhythm. LUNGS: clear to auscultation bilaterally. ABDOMEN: Erythema of abdominal wall. EXTREMITIES: 2+ edema. PERIPHERAL PULSES: equal. NEUROLOGIC: No gross deficits, AAO X 3 Results Labs and Meds Result diagrams: 09/06/21 13:11 09/07/21 06:34 Lab results: Laboratory Results - last 24 hr 09/06/21 09/06/21 09/06/21 13:11 13:11 13:11 WBC 9.3 RBC 4.48 L Hgb 13.3 L Hct 40.3 L MCV 90.0 MCH 29.7 MCHC 33.0 RDW 18.7 H Plt Count 283 MPV 9.6 Immature Gran % (Auto) 0.4 Neut % (Auto) 81.6 H Lymph % (Auto) 10.7 L [place] % (Auto) 5.6 Eos % (Auto) 1.3 Baso % (Auto) 0.4 Lymph # (Auto) 1.0 L [place] # (Auto) 0.5 Eos # (Auto) 0.1 Baso # (Auto) 0.0 Abs Immat Gran (auto) 0.04 H Absolute Neuts (auto) 7.6 Absolute Nucleated RBC 0.000 Nucleated RBC % (auto) 0.0 Sodium 140 Potassium 3.1 L Chloride 105 Carbon Dioxide 25 Anion Gap 13 BUN 12 Creatinine 0.86 Estim Creat Clear Calc 119.7 Estimated GFR > 60 Random Glucose 138 H Lactic Acid Calcium 8.4 D Magnesium Total Bilirubin 1.2 H AST 17 ALT 13 Alkaline Phosphatase 97 B-Natriuretic Peptide 2602 H Total Protein 6.3 L Albumin 3.4 L COVID-19 ([facility]) COVID-19 Smartdate 09/06/21 09/06/21 09/07/21 13:11 19:36 06:34 WBC RBC Hgb Hct MCV MCH MCHC RDW Plt Count MPV Immature Gran % (Auto) Neut % (Auto) Lymph % (Auto) [place] % (Auto) Eos % (Auto) Baso % (Auto) Lymph # (Auto) [place] # (Auto) Eos # (Auto) Baso # (Auto) Abs Immat Gran (auto) Absolute Neuts (auto) Absolute Nucleated RBC Nucleated RBC % (auto) Sodium 142 Potassium 3.2 L Chloride 106 Carbon Dioxide 28 Anion Gap 11 L BUN 9 Creatinine 0.75 Estim Creat Clear Calc 137.2 Estimated GFR > 60 Random Glucose 97 Lactic Acid 1.7 Calcium 8.5 Magnesium 1.8 Total Bilirubin AST ALT Alkaline Phosphatase B-Natriuretic Peptide Total Protein Albumin COVID-19 ([facility]) Negative COVID-19 Clin Com See Note Imaging Radiologist's impression: Impressions Chest X-Ray 09/06/21 12:39 IMPRESSION: Mild patchy haziness in right middle lobe. It appears similar to previous exam 06/14/2021. Assessment and Plan (1) Cellulitis: Status: Acute (2) Hypokalemia: Status: Acute (3) NICM (nonischemic cardiomyopathy): Status: Acute (4) Decompensated heart failure: Status: Acute 51-year-old gentleman admitted with ADCHF. Significantly overloaded. Agree with IV Lasix 40 mg BID. Given 2.5 mg x 1, 30 mins before the next dose Lasix. Monitor potassium and magnesium closely. Eliquis for ?thrombus on the ICD lead. Cellultiis- Abx. We will follow along. Procedures Date of Service Date of Service: 09/07/21
[2021-09-07] MEDS: metOLazone 2.5 MG TABLET PO (11:31)
--- NOTE | 2021-09-07 16:55 | P.DS_ITS ---
DS: Providers Provider Date of Service: 09/07/21 Date of admission: 09/06/21 17:49 Primary care physician: Mike Duong MD Consults: 09/06/21 17:53 Consult to Cardiology Routine Consulting Provider: Macario Thacker Reason for consultation: chf Has provider been notified: No 09/07/21 11:23 Consult to Infectious Diseases Stat Consulting Provider: Allie Huddleston Reason for consultation: abd wall cellulitis Has provider been notified: No Attending physician on discharge: Juliann Agustin Discharging clinician: Sheryl Rivera DS: Diagnosis Discharge Diagnosis (1) Acute systolic (congestive) heart failure: Status: Acute (2) Cellulitis: Status: Acute (3) NICM (nonischemic cardiomyopathy): Status: Acute (4) ICD (implantable cardioverter-defibrillator) in place: Status: Acute (5) HTN (hypertension): Status: Acute (6) Cardiomyopathy: Status: Acute (7) Hypokalemia: Status: Acute DS: Summary Hospital Course Hospital Course: From H&P on day of admission 51-year-old male with history of CHF with reduced ejection fraction of 20-25%, HTN, AICD, presents to the hospital?due to w orsening lower extremity edema of 1 week duration, patient ran out of his diuretics and was scheduled to be seen by propulsion machinery service engineer, at cardiology office patient was noted to have significant lower extremity edema redness of abdominal wall therefore patient was referred to [facility] for further evaluation and treatment, according to patient he noticed lower extremity edema for last 1 week that is gradually progressing associated with abdominal distension, scrotal swelling, and this morning patient felt palpitations and also shortness of breath, he usually takes 40 mg of Lasix daily and has been recommended to take additional dose when there is 3 lb weight gain but since he ran out of his prescription he was unable to take Lasix, patient denies any fever chills, denies nausea, vomiting or diarrhea, in the emergency room, patient noted to have mild tachycardia tachypnea, oxygenation stable at 99, noted to have mild hypokalemia, patient treated with IV Lasix, IV vancomycin and now being admitted to [facility] due to acute on chronic systolic congestive Heart failure and abdominal wall cellulitis. The patient was admitted to hospital for acute on chronic decompensated systolic heart failure, sepsis secondary to abdominal wall cellulitis and hypokalemia. He was seen in consultation by Cardiology and was being diuresed with IV Lasix. For his abdominal wall cellulitis he was started on IV Kefzol. Blood cultures are pending at this time. Patient wishes to leave the hospital against medical advice. It is explained that he was recommended to stay in the hospital. The risks of leaving including worsening respiratory failure, overwhelming sepsis and ultimately were discussed. He is awake, alert and oriented and competent to make this decision. He understands and assumes the risk. He was informed that lasix and antibiotics were being sent to his pharmacy. He was encouraged to follow-up with his PCP and his propulsion machinery service engineer. Time Spent with Patient Time attestation: Total time spent providing and/or coordinating discharge services: Discharge coordination time: Greater than 30 minutes Quality: Stroke Does the patient have a stroke diagnosis?: No Physical Exam Vital Signs: Vital Signs: Last Vital Signs Temp 97.6 F 09/07/21 15:48 Pulse 82 09/07/21 15:48 Resp 16 09/07/21 15:48 BP 94/76 09/07/21 15:48 Pulse Ox 93 09/07/21 15:48 Body Mass Index 36.1 Const: Other: awake, alert, oriented x 3 DS: Data Data Completed and Pending Labs on day of discharge: Laboratory Results - last 24 hr 09/06/21 09/07/21 19:36 06:34 Sodium 142 Potassium 3.2 L Chloride 106 Carbon Dioxide 28 Anion Gap 11 L BUN 9 Creatinine 0.75 Estim Creat Clear Calc 137.2 Estimated GFR > 60 Random Glucose 97 Calcium 8.5 Magnesium 1.8 COVID-19 ([facility]) Negative COVID-19 Clin Com See Note Preliminary micro results at discharge 09/06/21 13:11 Blood Culture - Preliminary Blood - Venous No growth after 24 hours. 09/06/21 13:11 Blood Culture - Preliminary Blood - Venous No growth after 24 hours. Discharge Plan Discharge Patient Disposition: Left Against Medical Advice Discharge Diagnosis: Acute on chronic decompensated heart failure Abdominal wall cellulitis Referrals: Mike Duong MD [Primary Care Provider] - 1 Week Macario Thacker MD [Physician] - 1 Week Discharge Medications: New amoxicillin-pot clavulanate [Augmentin] 875-125 mg tablet 1 tab PO BID 7 Days Qty: 14 RF: 0 furosemide [Lasix] 40 mg tablet 40 mg PO BID 30 Days Qty: 60 RF: 0 Continued losartan 50 mg tablet 1 tab PO QAM RF: 0 atorvastatin 40 mg tablet 1 tab PO QAM RF: 0 amiodarone 200 mg tablet 1 tab PO QAM RF: 0 hydrocodone-acetaminophen 10-325 mg tablet 1 tab PO Q4-6H PRN (Reason: pain) RF: 0 spironolactone 25 mg tablet 0.5 tab PO QAM RF: 0 sertraline 25 mg tablet 1 tab PO QPM RF: 0 albuterol sulfate 90 mcg/actuation HFA aerosol inhaler 2 puff inhalation Q4-6H RF: 0 Eliquis 5 mg Tablet 5 mg PO BID@0600,1800 Qty: 60 RF: 0 carvedilol [Coreg] 3.125 mg tablet 3.125 mg PO BID Qty: 60 RF: 0 Discontinued furosemide [Lasix] 40 mg tablet 40 mg PO DAILY Qty: 30 RF: 0 Discharge Orders: Discharge Order (Routine); Ordered 09/07/21 Ordered By: Sheryl Rivera Care Plan Goals: See below Health Concerns: Heart failure Hypokalemia Cellulitis Plan of Treatment: Continue take diuretic as prescribed, follow-up with Cardiology. Finished course of antibiotics Follow-up with PCP Assessment: Left against medical advice
--- NOTE | 2021-09-07 17:07 | PC.NURSE ---
1700 Decided he wanted to leave AMA states he is restless. Sheryl Rivera notified , she spoke with patient, and he insists on leaving. IV removed. Understands risks. Signed paper Instructed to pick and shovel man prescriptions at pharm and come to ED if needed.
== END 2021-09-07 17:28 | disposition left against medical advice (07) | DRG 871 ==
LOC: HO.ED 15:54 → HO.EDOVER 17:57 → HO.S3 09-07 07:14
PROVIDERS: Internal Medicine; Admitting Provider Hospitalist; Emergency Provider Emergency Medicine; PCP Internal Medicine; Visit Provider Hospitalist
DX: A41.9 Sepsis, unspecified organism (principal); I50.23 Acute on chronic systolic (congestive) heart failure; I42.8 Other cardiomyopathies; L03.311 Cellulitis of abdominal wall; I11.0 Hypertensive heart disease with heart failure; E78.5 Hyperlipidemia, unspecified; F39 Unspecified mood [affective] disorder; G89.29 Other chronic pain; Z20.822 Contact with and (suspected) exposure to COVID-19; E87.6 Hypokalemia; Z95.810 Presence of automatic (implantable) cardiac defibrillator; F17.210 Nicotine dependence, cigarettes, uncomplicated; Z71.6 Tobacco abuse counseling; Z79.01 Long term (current) use of anticoagulants; Z79.899 Other long term (current) drug therapy
CPT/HCPCS: 36415; 71046; 80048; 80053; 83605; 83735; 83880; 85025; 87040; 87635; 93005; 94640; 99212; 99285; J0690; J1940; J2270; J2543; J3370

== ENCOUNTER → 2021-09-27 13:25 | Outpatient (BNVA) | payer MEDICARE, MEDICAID, SELFPAY | PROVIDERS: Referring Provider Internal Medicine; Visit Provider Nurse Practitioner Family | DX: I42.8 Other cardiomyopathies (principal); I47.1 Supraventricular tachycardia; I10 Essential (primary) hypertension; I50.22 Chronic systolic (congestive) heart failure; F17.210 Nicotine dependence, cigarettes, uncomplicated; F11.99 Opioid use, unspecified with unspecified opioid-induced disorder; Z45.02 Encounter for adjustment and management of automatic implantable cardiac defibrillator; Z98.890 Other specified postprocedural states; Z79.899 Other long term (current) drug therapy | CPT/HCPCS: 93282; 99212 ==

== ENCOUNTER 2021-10-04 19:43 | Inpatient (IN) | payer MEDICARE, MEDICAID, SELFPAY ==
--- NOTE | ~2021-10-04 | XR_ITS ---
EXAMINATION: XR CHEST CLINICAL INFORMATION: Chest pain. Shortness of breath. COMPARISON: Most recent chest radiograph dated 09/06/2021. TECHNIQUE: Frontal view of the chest was obtained. FINDINGS: Hazy right middle lobe airspace opacities, unchanged. No new or increasing airspace consolidation. No pleural effusion or pneumothorax. Stable cardiomediastinal silhouette. Left chest wall AICD with its lead in the right heart. XR/XR chest 1V IMPRESSION: Hazy right middle lobe airspace opacities, unchanged.
--- NOTE | 2021-10-04 19:49 | ECG_ITS ---
Test Reason : chest pain Blood Pressure : / mmHG Vent. Rate : 115 BPM Atrial Rate : 115 BPM P-R Int : 156 ms QRS Dur : 086 ms QT Int : 344 ms P-R-T Axes : 059 -36 108 degrees QTc Int : 475 ms Sinus tachycardia Possible Left atrial enlargement Left axis deviation Nonspecific T wave abnormality Abnormal ECG T wave inversion more evident in Lateral leads Heart rate has increased Referred By: Generic ED Physician Electronically Signed By:YASH AGSPAR MD
[2021-10-04 20:13] VITALS: BP 125/85; PULSE 108; RESP 22; TEMP 36.7; O2SAT 99; BMI 33.2
[2021-10-04 20:39] LABS: MANUAL DIFF FLAG NO
[2021-10-04 20:45] LABS: Basophils Absolute Auto 0.1 X10*3/uL (0.0-0.2); Basophils Percent Auto 0.9 % (0-2); Eosinophils Absolute Auto 0.2 X10*3/uL (0.0-0.4); Eosinophils Percent Auto 2.1 % (0-4); Hematocrit 42.2 % (42.0-52.0); Hemoglobin 13.5 g/dl (14.0-18.0); Imm Gran Abs Auto 0.03 X10*3/uL (0.00-0.03); Imm Gran Pct Auto 0.4 % (0.0-0.4); Lymphocytes Absolute Auto 1.6 X10*3/uL (1.2-4.9); Lymphocytes Percent Auto 18.9 % (20-40); Mean Corpuscular Hemoglobin 29.5 pg (27.0-33.0); Mean Corpuscular Volume 92.1 fL (80.0-98.0); Mean Platelet Volume 9.6 fL (9.4-12.4); Monocytes Absolute Auto 0.5 X10*3/uL (0.1-1.2); Monocytes Percent Auto 6.2 % (2-11); Neutrophils Absolute Auto 6.1 x10*3/uL (2.0-8.3); Neutrophils Percent Auto 71.5 % (45-73); Platelet Count 281 X10*3/uL (160-400); Red Blood Count 4.58 X10*6/uL (4.60-5.80); Red Cell Distribution Width 18.9 % (11.0-16.0); White Blood Count 8.5 X10*3/uL (4.8-10.8)
[2021-10-04 20:46] VITALS: BP 125/99; PULSE 114; RESP 28; TEMP 36.6; O2SAT 98
[2021-10-04 20:54] LABS: Anion Gap 12 (12-20); Blood Urea Nitrogen 7 mg/dL (9-16); Calcium 8.6 mg/dL (8.4-10.2); Carbon Dioxide 24 mmol/L (22-29); Chloride 108 mmol/L (96-108); Creatinine Clr Calc Pharmacy 120.3; Estimated Glomerular Filt Rate > 60; Glucose Random 117 mg/dL (60-115); Potassium 3.8 mmol/L (3.3-5.1); Sodium 140 mmol/L (135-145)
[2021-10-04 21:01] LABS: Troponin-I High Sensitivity 8.8 ng/L (<3.5-35.0)
--- NOTE | 2021-10-04 21:16 | ED_ITS ---
HPI - Chest Pain General Chief Complaint: Chest Pain Stated Complaint: chest pain and left arm pain Time Seen by Provider: 10/04/21 21:16 Source: patient Mode of arrival: ambulatory Limitations: no limitations History of Present Illness HPI narrative: Patient is 51 years old with history of with nonischemic cardiomy opathy ejection fraction of 10-15%, hypertension, status post AICD for cardiomyopathy with thrombus on the ICD lead on Eliquis comes here for increased shortness of breath and weight gain of about 10 lb for last 2 weeks recent dose of Lasix was increased to 40 mg twice daily on 09/27 for increased shortness of breath. Also patient feel chest heaviness for last 2 weeks similar to that in the past. Patient was seen by Cardiology on 09/26 for same also patient was admitted on 09/06 for CHF. Patient able to lay flat in the night unable to walk because of significant shortness of breath Related Data Home Medications Medication Instructions Recorded Confirmed albuterol sulfate 90 mcg/actuation 2 puff INHALATION Q4-6H 06/14/21 10/04/21 aerosol inhaler amiodarone 200 mg tablet 1 tab PO QAM 06/14/21 10/04/21 atorvastatin 40 mg tablet 1 tab PO QAM 06/14/21 10/04/21 hydrocodone 10 mg-acetaminophen 1 tab PO Q4-6H PRN 06/14/21 10/04/21 325 mg tablet losartan 50 mg tablet 1 tab PO QAM 06/14/21 10/04/21 sertraline 25 mg tablet 1 tab PO QPM 06/14/21 10/04/21 spironolactone 25 mg tablet 0.5 tab PO QAM 06/14/21 10/04/21 Previous Rx's Medication Instructions Recorded apixaban 5 mg tablet (Eliquis) 5 mg PO BID@0600,1800 #60 tab 06/18/21 carvedilol 3.125 mg tablet (Coreg) 3.125 mg PO BID #60 tab 06/18/21 furosemide 40 mg tablet (Lasix) 40 mg PO BID 30 Days #60 tab 09/27/21 Allergies Allergy/AdvReac Type Severity Reaction Status Date / Time No Known Allergies Allergy Verified 09/27/21 13:37 Review of Systems Review of Systems: Yes all other systems are reviewed and are negative PMFSH Past Medical History Medical History Acute on chronic systolic heart failure Artificial cardiac pacemaker Back injuries Cardiomyopathy Chronic systolic HF (heart failure) HTN (hypertension) ICD (implantable cardioverter-defibrillator) in place NSVT (nonsustained ventricular tachycardia) Surgical History Hx of cardiac cath (~08/2015) Family History Family History Father Prostate cancer Mother No problems noted. Social History Social History Household Members: None Housing: Apartment Do you presently have visiting nurse or other home services: No Alcohol intake: never Patient Tobacco Use Status: Current everyday Tobacco user Tobacco use type: Cigarette Cigarettes Per Day: 5 Use of substances other than those prescribed or required for medical reasons: No Advance Directives: No Advance Directives Information Provided: Yes service: No Current occupational status: disabled Physical Exam Vital Signs: Vital Signs: Last Vital Signs Temp 98.3 F 10/05/21 00:13 Pulse 97 10/05/21 00:13 Resp 21 H 10/05/21 00:13 BP 127/92 H 10/05/21 00:13 Pulse Ox 97 10/05/21 00:13 Body Mass Index 33.2 Appearance: Alert. Oriented X3. In moderate respiratory distress Eyes: PERRLA, No Nystagmus ENT: Pharynx normal. Oral Mucosa moist Neck: Normal inspection. Neck supple. CVS: Normal heart rate and rhythm. Pulses normal. Respiratory: No respiratory distress. Equal air entry bilateral, no wheezing/rhonchi bilateral basal crackles++ Abdomen: Soft and nontender. Bowel sounds are present, no mass palpable, no CVA tenderness Skin: Skin warm and dry. Normal skin color. Normal skin turgor. Extremities:4+ lower extremity edema. No calf tenderness Neuro: Oriented X 3. No motor deficit. No sensory deficit.No cerebellar signs , cranial nerves II-XII intact MDM - Chest Pain MDM Narrative Medical decision making narrative: Patient with nonischemic cardiomyopathy with ejection fraction of 15 came with increased fluid overload which x-rays to shortness of breath will admit patient for IV diuresis, IV Lasix was given and Lasix drip was started Medical Records Data Attestation: I reviewed the patient's medical records. Lab Data Attestation: I reviewed the patient's lab results. Result diagrams: 10/04/21 20:34 10/04/21 20:34 Labs: Lab Results 10/04/21 10/04/21 10/04/21 Range/Units 20:34 20:34 20:34 WBC 8.5 (4.8-10.8) X10*3/uL RBC 4.58 L (4.60-5.80) X10*6/uL Hgb 13.5 L (14.0-18.0) g/dl Hct 42.2 (42.0-52.0) % MCV 92.1 (80.0-98.0) fL MCH 29.5 (27.0-33.0) pg MCHC 32.0 (31.0-36.0) g/dl RDW 18.9 H (11.0-16.0) % Plt Count 281 (160-400) X10*3/uL MPV 9.6 (9.4-12.4) fL Immature Gran % (Auto) 0.4 (0.0-0.4) % Neut % (Auto) 71.5 (45-73) % Lymph % (Auto) 18.9 L (20-40) % [place] % (Auto) 6.2 (2-11) % Eos % (Auto) 2.1 (0-4) % Baso % (Auto) 0.9 (0-2) % Lymph # (Auto) 1.6 (1.2-4.9) X10*3/uL [place] # (Auto) 0.5 (0.1-1.2) X10*3/uL Eos # (Auto) 0.2 (0.0-0.4) X10*3/uL Baso # (Auto) 0.1 (0.0-0.2) X10*3/uL Abs Immat Gran (auto) 0.03 (0.00-0.03) X10*3/uL Absolute Neuts (auto) 6.1 (2.0-8.3) x10*3/uL Absolute Nucleated RBC 0.000 (0.0-0.012) X10*3/uL Nucleated RBC % (auto) 0.0 (0.0-0.2) /100WBC Sodium 140 (135-145) mmol/L Potassium 3.8 (3.3-5.1) mmol/L Chloride 108 (96-108) mmol/L Carbon Dioxide 24 (22-29) mmol/L Anion Gap 12 (12-20) BUN 7 L (9-16) mg/dL Creatinine 0.82 (0.5-1.4) mg/dL Estim Creat Clear Calc 120.3 Estimated GFR > 60 Random Glucose 117 H (60-115) mg/dL Calcium 8.6 (8.4-10.2) mg/dL Troponin I High Sens 8.8 (<3.5-35.0) ng/L B-Natriuretic Peptide (<100) pg/mL 10/04/21 Range/Units 20:56 WBC (4.8-10.8) X10*3/uL RBC (4.60-5.80) X10*6/uL Hgb (14.0-18.0) g/dl Hct (42.0-52.0) % MCV (80.0-98.0) fL MCH (27.0-33.0) pg MCHC (31.0-36.0) g/dl RDW (11.0-16.0) % Plt Count (160-400) X10*3/uL MPV (9.4-12.4) fL Immature Gran % (Auto) (0.0-0.4) % Neut % (Auto) (45-73) % Lymph % (Auto) (20-40) % [place] % (Auto) (2-11) % Eos % (Auto) (0-4) % Baso % (Auto) (0-2) % Lymph # (Auto) (1.2-4.9) X10*3/uL [place] # (Auto) (0.1-1.2) X10*3/uL Eos # (Auto) (0.0-0.4) X10*3/uL Baso # (Auto) (0.0-0.2) X10*3/uL Abs Immat Gran (auto) (0.00-0.03) X10*3/uL Absolute Neuts (auto) (2.0-8.3) x10*3/uL Absolute Nucleated RBC (0.0-0.012) X10*3/uL Nucleated RBC % (auto) (0.0-0.2) /100WBC Sodium (135-145) mmol/L Potassium (3.3-5.1) mmol/L Chloride (96-108) mmol/L Carbon Dioxide (22-29) mmol/L Anion Gap (12-20) BUN (9-16) mg/dL Creatinine (0.5-1.4) mg/dL Estim Creat Clear Calc Estimated GFR Random Glucose (60-115) mg/dL Calcium (8.4-10.2) mg/dL Troponin I High Sens (<3.5-35.0) ng/L B-Natriuretic Peptide 3298 H (<100) pg/mL ECG Data ECG #1: Attestation: I personally reviewed and interpreted this ECG as follows: Interpretation: With heart rate 115 beats per minute left axis deviation left atrial enlargement nonspecific T-wave inversion in lateral leads and no acute ischemia Critical Care Time Critical Care Time Critical Care Time: Yes Total Critical Care Time: 40 Attestation: I spent 40 minutes of critical care, with interventions, assessments, speaking to patient, consultants, Discharge Plan Discharge Clinical Impression: CHF (congestive heart failure) Qualifiers: Heart failure type: systolic Heart failure chronicity: acute on chronic Qualified Code(s): I50.23 - Acute on chronic systolic (congestive) heart failure Patient Disposition: Admitted As Inpatient
[2021-10-04 21:21] LABS: B Type Natriuretic Peptide 3298 pg/mL (<100)
[2021-10-04] MEDS: Furosemide 40 MG/4 ML VIAL IVPUSH (22:17)
[2021-10-04] MEDS: Furosemide 200 MG in 0.9 % Sodium Chloride 80 ML IVCONT (22:17)
[2021-10-04 22:20] VITALS: BP 124/88; PULSE 105; RESP 18; O2SAT 99
[2021-10-04 23:30] VITALS: BP 130/92; PULSE 112; RESP 19; O2SAT 100
[2021-10-05] VITALS (14 sets, daily range): BP systolic 90–131; BP diastolic 60–95; PULSE 88–107; RESP 16–23; TEMP 36–37.2; O2SAT 89–100
[2021-10-05] MEDS: 0.9 % Sodium Chloride Flush 3 ML SYRINGE IVFLUSH ×3 (00:12→17:30)
[2021-10-05] MEDS: methylPREDNISolone Sod Succ 40 MG/ML VIAL IVPUSH ×2 (00:12→11:37)
[2021-10-05] MEDS: Morphine Sulfate 4 MG/ML CARTRIDGE IVPUSH ×2 (00:18→07:14)
[2021-10-05 00:28] LABS: COVID-19 Test Negative (Negative); IDNOW Serial# 9DD0AD1C
[2021-10-05 00:30] LABS: Troponin-I High Sensitivity 9.8 ng/L (<3.5-35.0)
--- NOTE | 2021-10-05 06:06 | PC.NURSE ---
Pt remains alert and oriented x4, calm and cooperative. Pt denies pain. Pt denies SOB at rest. B/L lower legs remain swollen. Pt voided multiple times throughout scene shifter. IV intact, drip infusing. Vitals stable. pt asleep in stretcher at this time, will continue to monitor.
[2021-10-05 06:36] LABS: MANUAL DIFF FLAG NO
[2021-10-05 06:43] LABS: Basophils Percent Auto 0.4 % (0-2); Eosinophils Percent Auto 0.5 % (0-4); Hematocrit 42.3 % (42.0-52.0); Hemoglobin 13.5 g/dl (14.0-18.0); Imm Gran Abs Auto 0.02 X10*3/uL (0.00-0.03); Imm Gran Pct Auto 0.3 % (0.0-0.4); Lymphocytes Absolute Auto 0.8 X10*3/uL (1.2-4.9); Lymphocytes Percent Auto 10.6 % (20-40); Mean Corpuscular HGB Conc 31.9 g/dl (31.0-36.0); Mean Corpuscular Hemoglobin 29.2 pg (27.0-33.0); Mean Corpuscular Volume 91.6 fL (80.0-98.0); Mean Platelet Volume 9.5 fL (9.4-12.4); Monocytes Absolute Auto 0.1 X10*3/uL (0.1-1.2); Monocytes Percent Auto 1.9 % (2-11); Neutrophils Absolute Auto 6.4 x10*3/uL (2.0-8.3); Neutrophils Percent Auto 86.3 % (45-73); Platelet Count 255 X10*3/uL (160-400); Red Blood Count 4.62 X10*6/uL (4.60-5.80); Red Cell Distribution Width 18.4 % (11.0-16.0); White Blood Count 7.4 X10*3/uL (4.8-10.8)
--- NOTE | 2021-10-05 06:50 | PM.IMHP ---
History of Present Illness Date of Service: 10/05/21 Chief Complaint: SOB , leg swelling This is a 51-year-old male with past medical history of CHF status post ICD, COPD, hypertension, and SVT who presents to the hospital with complaints of shortness of breath as well as leg swelling. Patient also complains of orthopnea PND. His symptoms started about a week ago, he is also complaining of squeezing chest pain localized to the left, radiating across his chest, started this morning, constant, exacerbated by severe cough, as well as breathing, patient reports that he also has an increased cough and sputum production. He denies any fever no chills, no abdominal pain nausea or vomiting, no diarrhea constipation, no urinary symptoms. Patient reports that he does sometimes misses his doses of his Lasix although he tries not to. Stable with temperature of 98?, heart rate of 108, respiratory rate of 22, blood pressure 125/85, satting 99% on room air Labs are significant for WBC count of 8.5, 8.8 with 9.8 repeat, BNP of 3298, Chest x-ray shows hazy right middle lobe airspace opacities which is unchanged from previous Patient will be admitted for further management of CHF exacerbation Review of Systems Review of Systems: Yes all other systems are reviewed and are negative [facility] Medical History Acute on chronic systolic heart failure Artificial cardiac pacemaker Back injuries Cardiomyopathy Chronic systolic HF (heart failure) HTN (hypertension) ICD (implantable cardioverter-defibrillator) in place NSVT (nonsustained ventricular tachycardia) Family History Father Prostate cancer Mother No problems noted. Pertinent family history: No pertinent history Surgical History Hx of cardiac cath (~08/2015) Social History Household Members: None Housing: Apartment Do you presently have visiting nurse or other home services: No Alcohol intake: never Patient Tobacco Use Status: Current everyday Tobacco user Tobacco use type: Cigarette Cigarettes Per Day: 5 Use of substances other than those prescribed or required for medical reasons: No Advance Directives: No Advance Directives Information Provided: Yes service: No Current occupational status: disabled Meds Allergies Allergy/AdvReac Type Severity Reaction Status Date / Time No Known Allergies Allergy Verified 09/27/21 13:37 Active Medications: Current Medications Acetaminophen (Acetaminophen 325 Mg Tablet) 650 mg PO Q6H PRN PRN Reason: Pain, Mild (Pain Scale 1-3) Albuterol/Ipratropium (Albuterol/Iprat 2.5/0.5mg 3 Ml Ampul.Neb) 3 ml INHALE RQ4H WHILE AWAKE [facility] Albuterol/Ipratropium (Albuterol/Iprat 2.5/0.5mg 3 Ml Ampul.Neb) 3 ml INHALE RQ4H PRN PRN Reason: Shortness of Breath/Wheezing Docusate Sodium (Docusate Sodium 100 Mg Capsule) 100 mg PO DAILY PRN PRN Reason: Constipation Furosemide 200 mg/ Sodium (Chloride) 100 mls @ 2.5 mls/hr IVCONT .Q24H [facility] Last Admin: 10/04/21 22:17 Dose: 5 mg/hr, 2.5 mls/hr Documented by: Methylprednisolone Sodium Succinate (Methylprednisolone Sod Succ 40 Mg/Ml Vial) 40 mg IVPUSH Q12H [facility] Last Admin: 10/05/21 00:12 Dose: 40 mg Documented by: Morphine Sulfate (Morphine Sulfate 4 Mg/Ml Cartridge) 4 mg IVPUSH Q4H PRN; Protocol PRN Reason: Pain, Severe (Pain Scale 7-10) Last Admin: 10/05/21 00:18 Dose: 4 mg Documented by: Ondansetron HCl (Ondansetron Hcl 4 Mg/2 Ml Vial) 4 mg IVPUSH Q8H PRN PRN Reason: Nausea and Vomiting Sodium Chloride (0.9 % Sodium Chloride Flush 3 Ml Syringe) 3 ml IVFLUSH QSHIFT [facility] Last Admin: 10/05/21 00:12 Dose: 3 ml Documented by: Home Medications Medication Instructions Recorded Confirmed Last Taken Type albuterol sulfate 90 mcg/actuation 2 puff INHALATION Q4-6H 06/14/21 10/04/21 09/06/21 History aerosol inhaler amiodarone 200 mg tablet 1 tab PO QAM 06/14/21 10/04/21 09/06/21 History atorvastatin 40 mg tablet 1 tab PO QAM 0710/04/21 09/06/21 History hydrocodone 10 mg-acetaminophen 1 tab PO Q4-6H PRN 06/14/21 10/04/21 09/05/21 History 325 mg tablet losartan 50 mg tablet 1 tab PO QAM 06/14/21 10/04/21 09/06/21 History sertraline 25 mg tablet 1 tab PO QPM 06/14/21 10/04/21 09/05/21 History spironolactone 25 mg tablet 0.5 tab PO QAM 06/14/21 10/04/21 09/06/21 History Physical Exam Vital Signs and Narrative: Vital Signs: Last Vital Signs Temp 99 F 10/05/21 06:06 Pulse 104 H 10/05/21 06:06 Resp 22 H 10/05/21 06:06 BP 116/76 10/05/21 06:06 Pulse Ox 100 10/05/21 06:06 Body Mass Index 33.2 Const: General: cooperative and no acute distress Orientation/consciousness: patient oriented x3 Eyes: General: appearance normal, both eyes and all related structures Resp: Effort & Inspection: normal respiratory effort Auscultation: clear to auscultation bilaterally Cardio: Rate: regular rate Rhythm: regular rhythm GI: Palpation (GI): Soft to palpation Auscultation: normal bowel sounds Skin: General skin exam: no rashes or lesions noted Neuro: General: patient oriented x3 Cognition (Neuro): normal cognition Extrem: Other: 3+ pitting edema bilaterally General: Yes normal to inspection Results Labs CBC and Chem 7: 10/05/21 06:22 10/04/21 20:34 Labs: Laboratory Results - last 24 hr 10/04/21 10/04/21 10/04/21 20:34 20:34 20:34 MCV 92.1 MCH 29.5 MCHC 32.0 RDW 18.9 H Plt Count 281 MPV 9.6 Immature Gran % (Auto) 0.4 Neut % (Auto) 71.5 Lymph % (Auto) 18.9 L [place] % (Auto) 6.2 Eos % (Auto) 2.1 Baso % (Auto) 0.9 Lymph # (Auto) 1.6 [place] # (Auto) 0.5 Eos # (Auto) 0.2 Baso # (Auto) 0.1 Abs Immat Gran (auto) 0.03 Absolute Neuts (auto) 6.1 Absolute Nucleated RBC 0.000 Nucleated RBC % (auto) 0.0 Anion Gap 12 Estim Creat Clear Calc 120.3 Estimated GFR > 60 Random Glucose 117 H Calcium 8.6 Troponin I High Sens 8.8 B-Natriuretic Peptide COVID-19 ([facility]) COVID-19 Clin Com 10/04/21 10/04/21 10/05/21 20:56 23:42 00:09 MCV MCH MCHC RDW Plt Count MPV Immature Gran % (Auto) Neut % (Auto) Lymph % (Auto) [place] % (Auto) Eos % (Auto) Baso % (Auto) Lymph # (Auto) [place] # (Auto) Eos # (Auto) Baso # (Auto) Abs Immat Gran (auto) Absolute Neuts (auto) Absolute Nucleated RBC Nucleated RBC % (auto) Anion Gap Estim Creat Clear Calc Estimated GFR Random Glucose Calcium Troponin I High Sens 9.8 B-Natriuretic Peptide 3298 H COVID-19 ([facility]) Negative COVID-19 Clin Com See Note 10/05/21 06:22 MCV 91.6 MCH 29.2 MCHC 31.9 RDW 18.4 H Plt Count 255 MPV 9.5 Immature Gran % (Auto) 0.3 Neut % (Auto) 86.3 H Lymph % (Auto) 10.6 L [place] % (Auto) 1.9 L Eos % (Auto) 0.5 Baso % (Auto) 0.4 Lymph # (Auto) 0.8 L [place] # (Auto) 0.1 Eos # (Auto) 0.0 Baso # (Auto) 0.0 Abs Immat Gran (auto) 0.02 Absolute Neuts (auto) 6.4 Absolute Nucleated RBC 0.000 Nucleated RBC % (auto) 0.0 Anion Gap Estim Creat Clear Calc Estimated GFR Random Glucose Calcium Troponin I High Sens B-Natriuretic Peptide COVID-19 ([facility]) COVID-19 Clin Com ECG Interpretation: Sinus tachycardia no ST T-wave changes suggestive of ACS Imaging Radiologist's Impressions: Impressions Chest X-Ray 10/04/21 20:24 IMPRESSION: Hazy right middle lobe airspace opacities, unchanged. Assessment and Plan (1) CHF (congestive heart failure): Qualifiers: Heart failure chronicity: acute on chronic Heart failure type: systolic Qualified Code(s): I50.23 - Acute on chronic systolic (congestive) heart failure Status: Acute (2) Chest pain: Status: Acute (3) COPD exacerbation: Status: Acute This is a 51-year-old male with past medical history of CHF presents to the hospital with complaint of shortness of breath found to have CHF exacerbation as well as COPD exacerbation # CHF exacerbation - has dyspnea, orthopnea, PND, lower extremity edema, and imaging evidence of pulmonary congestion - patient will be started on Lasix IV b.i.d., low-sodium diet, daily weight, strict I&O, - consult cardiology - shows an ejection fraction of 15-20% back in May - repeat echo # COPD exacerbation - cough, sputum production, dyspnea - will start him on IV Solu-Medrol, DuoNeb p.r.n. and schedule # chest pain - atypical - troponin not elevated - no EKG changes - most likely related to cough - supportive measures, antitussive tx # hypertension - stable - continue home medications DVT prophylaxis: Eliquis ( not clear why pt on eliquis) Quality Stroke Does the patient have a stroke diagnosis?: No VTE Prior VTE?: No VTE Risk Level:: Medical - moderate - high VTE Device Contraindication: Treatment Not Indicated VTE Drug Contraindication: N/A - Med Ordered
[2021-10-05 06:53] LABS: Anion Gap 15 (12-20); Blood Urea Nitrogen 9 mg/dL (9-16); Calcium 8.5 mg/dL (8.4-10.2); Carbon Dioxide 23 mmol/L (22-29); Chloride 106 mmol/L (96-108); Creatinine Clr Calc Pharmacy 121.7; Estimated Glomerular Filt Rate > 60; Glucose Random 130 mg/dL (60-115); Potassium 4.2 mmol/L (3.3-5.1); Sodium 140 mmol/L (135-145)
[2021-10-05] MEDS: Albuterol/Iprat 2.5/0.5MG 3 ML AMPUL.NEB INHALE ×3 (08:33→15:18)
--- NOTE | 2021-10-05 10:02 | PC.NURSE ---
pt is sleeping, resp even and unlabored.
[2021-10-05] MEDS: Spironolactone 25 MG TABLET 12.5 MG PO (11:34)
[2021-10-05] MEDS: Atorvastatin Calcium 40 MG TABLET PO (11:35)
[2021-10-05] MEDS: guaiFENesin DM 200/20/10 ML 10 ML SYRUP PO ×2 (11:35→17:30)
[2021-10-05] MEDS: Amiodarone HCL 200 MG TABLET PO (11:35)
[2021-10-05] MEDS: carvediloL 3.125 MG TABLET PO (11:36)
--- NOTE | 2021-10-05 12:48 | P.CONCA_ITS ---
History of Present Illness History of Present Illness Date of Service: 10/05/21 Requesting physician: Juliann Agustin Consult reason: congestive heart failure Chief complaint: CHF exacerbation Narrative: I was requested to see Stephen in cardiology consultation today for decompensated congestive heart failure. He has history of noncompliance is signing out against medical advise prior to complete treatment of his congestive heart failure about a month ago when he was admitted with abdominal well discomfort with abnormal cellulitis and decompensated heart failure. He signed out against medical advise despite warning. Since then he has had no improvement. He has been taking Lasix, did see Carleen in the office on and was having increased leg edema. However this continue to progressive progressive shortness of breath and orthopnea. He came to the hospital with decompensated congestive heart failure and is being admitted. Since last night has been started on IV Lasix drip with good urine output. He is breathing is improved. Continues to have leg edema though. Also complains of chest pressure. He is still short of breath but says better than before. No palpitations. He says he takes all his medications as prescribed that comes in the bubble pack. Denies any alcohol or drug abuse. Denies any salt overload, but does not watch the contents off the salt in the food that he eats Review of Systems Constitutional: Constitutional: Reports no additional constitutional complaints Cardiovascular: Cardiovascular: Reports chest pain at rest, Denies syncope, Reports leg edema, Denies lightheadedness, Denies Loss of Consciousness, Denies palpitations, Reports dyspnea, Reports dyspnea on exertion and Reports orthopnea Respiratory: Respiratory: Reports no additional respiratory complaints, Reports dyspnea and Reports dyspnea on exertion Gastrointestinal: Gastrointestinal: Reports no additional gastrointestinal complaints Genitourinary: Genitourinary: Reports no additional male genitourinary compl aints Musculoskeletal: Musculoskeletal: Reports no additional musculoskeletal complaints Integumentary/Breasts: Skin/Breast: Reports system reviewed and no additional complaints, except as docu Neurologic: Reports system reviewed and no additional complaints, except as documented and Denies syncope Psychiatric: Psychiatric: Reports no additional psychiatric complaints Endocrine: Endocrine: Reports no additional endocrine complaints and Denies palpitations Hematologic/Lymphatic: Hematologic/Lymphatic: Reports no additional hematologic/lymphatic complaints PMFSH Past Medical History Medical History Acute on chronic systolic heart failure Artificial cardiac pacemaker Back injuries Cardiomyopathy Chronic systolic HF (heart failure) HTN (hypertension) ICD (implantable cardioverter-defibrillator) in place NSVT (nonsustained ventricular tachycardia) Family History Family History Father Prostate cancer Mother No problems noted. Surgical History Surgical History Hx of cardiac cath (~08/2015) Social History Social History Household Members: None Housing: Apartment Do you presently have visiting nurse or other home services: No Alcohol intake: never Patient Tobacco Use Status: Current everyday Tobacco user Tobacco use type: Cigarette Cigarettes Per Day: 5 Use of substances other than those prescribed or required for medical reasons: No Advance Directives: No Advance Directives Information Provided: Yes service: No Current occupational status: disabled Meds Allergies Allergy/AdvReac Type Severity Reaction Status Date / Time No Known Allergies Allergy Verified 09/27/21 13:37 Active Medications: Current Medications Acetaminophen (Acetaminophen 325 Mg Tablet) 650 mg PO Q6H PRN PRN Reason: Pain, Mild (Pain Scale 1-3) Hydrocodone Bitart/Acetaminophen (Hydrocodone Bit/Acetam 10/325 Tablet) 1 tab PO Q4H PRN PRN Reason: pain Last Admin: 10/05/21 11:35 Dose: 1 tab Documented by: Albuterol Sulfate (Albuterol Sulfate 90 Mcg 8 Gm Inhaler) 2 puff IN[facility]ALE RQ4H [facility] Last Admin: 10/05/21 11:56 Dose: Not Given Documented by: Albuterol/Ipratropium (Albuterol/Iprat 2.5/0.5mg 3 Ml Ampul.Neb) 3 ml INHALE RQ4H WHILE AWAKE [facility] Last Admin: 10/05/21 11:54 Dose: 3 ml Documented by: Albuterol/Ipratropium (Albuterol/Iprat 2.5/0.5mg 3 Ml Ampul.Neb) 3 ml INHALE RQ4H PRN PRN Reason: Shortness of Breath/Wheezing Amiodarone HCl (Amiodarone Hcl 200 Mg Tablet) 200 mg PO DAILY [facility] Last Admin: 10/05/21 11:35 Dose: 200 mg Documented by: Apixaban (Apixaban 5 Mg Tablet) 5 mg PO BID@0600,1800 [facility] Atorvastatin Calcium (Atorvastatin Calcium 40 Mg Tablet) 40 mg PO DAILY [facility] Last Admin: 10/05/21 11:35 Dose: 40 mg Documented by: Carvedilol (Carvedilol 3.125 Mg Tablet) 3.125 mg PO BID [facility]; Protocol Last Admin: 10/05/21 11:36 Dose: 3.125 mg Documented by: Docusate Sodium (Docusate Sodium 100 Mg Capsule) 100 mg PO DAILY PRN PRN Reason: Constipation Guaifenesin/Dextromethorphan (Guaifenesin Dm 200/20/10 Ml 10 Ml Syrup) 10 ml PO Q6H [facility] Last Admin: 10/05/21 11:35 Dose: 10 ml Documented by: Furosemide 200 mg/ Sodium (Chloride) 100 mls @ 2.5 mls/hr IVCONT .Q24H [facility] Last Admin: 10/04/21 22:17 Dose: 5 mg/hr, 2.5 mls/hr Documented by: Methylprednisolone Sodium Succinate (Methylprednisolone Sod Succ 40 Mg/Ml Vial) 40 mg IVPUSH Q12H [facility] Last Admin: 10/05/21 11:37 Dose: 40 mg Documented by: Ondansetron HCl (Ondansetron Hcl 4 Mg/2 Ml Vial) 4 mg IVPUSH Q8H PRN PRN Reason: Nausea and Vomiting Sacubitril/Valsartan (Sacubitril/Valsartan 24/26 1 Tab Tablet) 1 tab PO BID [facility]; Protocol Sertraline HCl (Sertraline Hcl 25 Mg Tablet) 25 mg PO BEDTIME [facility] Sodium Chloride (0.9 % Sodium Chloride Flush 3 Ml Syringe) 3 ml IVFLUSH QSHIFT [facility] Last Admin: 10/05/21 07:14 Dose: 3 ml Documented by: Spironolactone (Spironolactone 25 Mg Tablet) 12.5 mg PO DAILY [facility]; Protocol Last Admin: 10/05/21 11:34 Dose: 12.5 mg Documented by: Home Medications Medication Instructions Recorded Confirmed Last Taken Type albuterol sulfate 90 mcg/actuation 2 puff INHALATION Q4-6H 06/14/21 10/04/21 09/06/21 History aerosol inhaler amiodarone 200 mg tablet 1 tab PO QAM 06/14/21 10/04/21 09/06/21 History atorvastatin 40 mg tablet 1 tab PO QAM 06/14/21 10/04/21 09/06/21 History hydrocodone 10 mg-acetaminophen 1 tab PO Q4-6H PRN 06/14/21 10/04/21 09/05/21 History 325 mg tablet losartan 50 mg tablet 1 tab PO QAM 06/14/21 10/04/21 09/06/21 History sertraline 25 mg tablet 1 tab PO QPM 06/14/21 10/04/21 09/05/21 History spironolactone 25 mg tablet 0.5 tab PO QAM 06/14/21 10/04/21 09/06/21 History Physical Exam Vital Signs: Vital Signs: Last Vital Signs Temp 99 F 10/05/21 06:06 Pulse 94 10/05/21 11:55 Resp 18 10/05/21 11:20 BP 109/67 10/05/21 11:36 Pulse Ox 97 10/05/21 11:20 Body Mass Index 33.2 Const: General: cooperative, comfortable, in distress moderate and respiratory and tired appearing Nutritional Appearance: overweight Orientation/consciousness: patient oriented x3 Limitations: no limitations HENMT: Head: Yes normocephalic Neck: Neck: Yes trachea midline, Yes supple and Yes JVD Chest: Chest palpation & inspection: normal inspection of the chest Resp: Effort & Inspection: normal respiratory effort Auscultation: rales and diminished lung sounds Cardio: Jugular venous distension: JVD Palpation: abnormal PMI displaced PMI Rate: regular rate Rhythm: regular rhythm Heart sounds: S1 normal heart sound present, S2 normal heart sound present, no click, Gallop heart sound present, no murmurs and no rubs GI: Auscultation: normal bowel sounds Skin: General skin exam: no rashes or lesions noted Neuro: General: patient oriented x3 and no focal motor deficits Extrem: General: No clubbing, No cyanosis and Yes edema Results Labs and Meds Result diagrams: 10/05/21 06:22 10/05/21 06:22 Lab results: Laboratory Results - last 24 hr 10/04/21 10/04/21 10/04/21 20:34 20:34 20:34 WBC 8.5 RBC 4.58 L Hgb 13.5 L Hct 42.2 MCV 92.1 MCH 29.5 MCHC 32.0 RDW 18.9 H Plt Count 281 MPV 9.6 Immature Gran % (Auto) 0.4 Neut % (Auto) 71.5 Lymph % (Auto) 18.9 L [place] % (Auto) 6.2 Eos % (Auto) 2.1 Baso % (Auto) 0.9 Lymph # (Auto) 1.6 [place] # (Auto) 0.5 Eos # (Auto) 0.2 Baso # (Auto) 0.1 Abs Immat Gran (auto) 0.03 Absolute Neuts (auto) 6.1 Absolute Nucleated RBC 0.000 Nucleated RBC % (auto) 0.0 Sodium 140 Potassium 3.8 Chloride 108 Carbon Dioxide 24 Anion Gap 12 BUN 7 L Creatinine 0.82 Estim Creat Clear Calc 120.3 Estimated GFR > 60 Random Glucose 117 H Calcium 8.6 Troponin I High Sens 8.8 B-Natriuretic Peptide COVID-19 ([facility]) COVID-19 Clin Com 10/04/21 10/04/21 10/05/21 20:56 23:42 00:09 WBC RBC Hgb Hct MCV MCH MCHC RDW Plt Count MPV Immature Gran % (Auto) Neut % (Auto) Lymph % (Auto) [place] % (Auto) Eos % (Auto) Baso % (Auto) Lymph # (Auto) [place] # (Auto) Eos # (Auto) Baso # (Auto) Abs Immat Gran (auto) Absolute Neuts (auto) Absolute Nucleated RBC Nucleated RBC % (auto) Sodium Potassium Chloride Carbon Dioxide Anion Gap BUN Creatinine Estim Creat Clear Calc Estimated GFR Random Glucose Calcium Troponin I High Sens 9.8 B-Natriuretic Peptide 3298 H COVID-19 ([facility]) Negative COVID-19 Clin Com See Note 10/05/21 10/05/21 06:22 06:22 WBC 7.4 RBC 4.62 Hgb 13.5 L Hct 42.3 MCV 91.6 MCH 29.2 MCHC 31.9 RDW 18.4 H Plt Count 255 MPV 9.5 Immature Gran % (Auto) 0.3 Neut % (Auto) 86.3 H Lymph % (Auto) 10.6 L [place] % (Auto) 1.9 L Eos % (Auto) 0.5 Baso % (Auto) 0.4 Lymph # (Auto) 0.8 L [place] # (Auto) 0.1 Eos # (Auto) 0.0 Baso # (Auto) 0.0 Abs Immat Gran (auto) 0.02 Absolute Neuts (auto) 6.4 Absolute Nucleated RBC 0.000 Nucleated RBC % (auto) 0.0 Sodium 140 Potassium 4.2 Chloride 106 Carbon Dioxide 23 Anion Gap 15 BUN 9 Creatinine 0.81 Estim Creat Clear Calc 121.7 Estimated GFR > 60 Random Glucose 130 H Calcium 8.5 Troponin I High Sens B-Natriuretic Peptide COVID-19 ([facility]) COVID-19 Clin Com Imaging Radiologist's impression: Impressions Chest X-Ray 10/04/21 20:24 IMPRESSION: Hazy right middle lobe airspace opacities, unchanged. Assessment and Plan (1) Acute exacerbation of CHF (congestive heart failure): Status: Acute Acute exacerbation of congestive heart failure due to incomplete in adequate diuresis during last hospitalization. Patient signed out against medical advise and generally noncompliant with medical advice. He needs inpatient adequate diuresis prior to discharge this time. This was discussed with him. Continue Lasix drip. Strict intake and output chart needs to be pursued. Patient remained significantly fluid overloaded. Continue neurohormonal modulation with carvedilol and Aldactone. Switch losartan to Entresto therapy. Will maximize his medical therapy as we go along to improve his overall heart failure syndrome. Continue Eliquis therapy for possible ICD thrombus. Also continue amiodarone most likely for nonsustained VT. Has ICD in place which is working well. Importance of compliance with medical recommendations was discussed with the patient. Will follow with Procedures Date of Service Date of Service: 10/05/21
--- NOTE | 2021-10-05 15:50 | PC.NURSE ---
pt resting in the stretcher alert and oriented, skin pwd, respirations even but pt does appear slightly sob and reports sob, sating 89% on room air while just laying there, pt was put on 2l via nasal canuael, pt also reports having left sided chest pain 9/10 slight peeding edema in lower extremities noticed about +1, ns on the monitor 500ml of yellow urine emptied from the urinal
--- NOTE | 2021-10-05 16:22 | HO.PM.IMPN ---
Subjective Subjective Date of Service: 10/05/21 Interval History: Patient being followed for acute on chronic systolic congestive heart failure complaining of chest pain worse with coughing feels shortness of breath has improved since admission denies nausea vomiting no fever no chills, no acute issues since admission. Review of Systems General no headache, no dizziness, no fever chills.? CVS chest pain with coughing, no palpitation.? Respiratory no cough, sob improving Gastrointestinal no nausea, no vomiting,no? abdominal pain Physical Exam Vital Signs: Vital Signs: Last Vital Signs Temp 96.8 F 10/05/21 14:15 Pulse 90 10/05/21 15:46 Resp 20 10/05/21 15:46 BP 102/68 10/05/21 15:46 Pulse Ox 89 L 10/05/21 15:46 Body Mass Index 33.2 GENERAL :? Awake alert, no acute distress NECK:?+ JVD HEART:? regular rate and rhythm, no murmurs LUNGS: few scattered wheeze, diminished breath sound, basilar crackles, no respiratory distress ABDOMEN:? Soft nontender bowel sounds audible, no rigidity no guarding EXTREMITIES: 2+ edema., good peripheral pulses NEUROLOGIC: No gross deficits Psych appropriate affect Objective Data Active Medications Acetaminophen (Acetaminophen 325 Mg Tablet) 650 mg PO Q6H PRN PRN Reason: Pain, Mild (Pain Scale 1-3) Hydrocodone Bitart/Acetaminophen (Hydrocodone Bit/Acetam 10/325 Tablet) 1 tab PO Q4H PRN PRN Reason: pain Last Admin: 10/05/21 15:58 Dose: 1 tab Documented by: MARTA Albuterol Sulfate (Albuterol Sulfate 90 Mcg 8 Gm Inhaler) 2 puff INHALE RQ4H [facility] [place] Last Admin: 10/05/21 15:20 Dose: Not Given Documented by: NAVEEN Non-Admin Reason: See Note Albuterol/Ipratropium (Albuterol/Iprat 2.5/0.5mg 3 Ml Ampul.Neb) 3 ml INHALE RQ4H WHILE AWAKE [facility] [place] Last Admin: 10/05/21 15:18 Dose: 3 ml Documented by: NAVEEN Albuterol/Ipratropium (Albuterol/Iprat 2.5/0.5mg 3 Ml Ampul.Neb) 3 ml INHALE RQ4H PRN PRN Reason: Shortness of Breath/Wheezing Amiodarone HCl (Amiodarone Hcl 200 Mg Tablet) 200 mg PO DAILY [facility] [place] Last Admin: 10/05/21 11:35 Dose: 200 mg Documented by: GINI Apixaban (Apixaban 5 Mg Tablet) 5 mg PO BID@0600,1800 [facility] [place] Atorvastatin Calcium (Atorvastatin Calcium 40 Mg Tablet) 40 mg PO DAILY [facility] [place] Last Admin: 10/05/21 11:35 Dose: 40 mg Documented by: GINI Carvedilol (Carvedilol 3.125 Mg Tablet) 3.125 mg PO BID [facility] [place]; Protocol Last Admin: 10/05/21 11:36 Dose: 3.125 mg Documented by: GINI Docusate Sodium (Docusate Sodium 100 Mg Capsule) 100 mg PO DAILY PRN PRN Reason: Constipation Guaifenesin/Dextromethorphan (Guaifenesin Dm 200/20/10 Ml 10 Ml Syrup) 10 ml PO Q6H [facility] [place] Last Admin: 10/05/21 11:35 Dose: 10 ml Documented by: GINI Furosemide 200 mg/ Sodium (Chloride) 100 mls @ 2.5 mls/hr IVCONT .Q24H [facility] [place] Last Admin: 10/04/21 22:17 Dose: 5 mg/hr, 2.5 mls/hr Documented by: VENESSA Methylprednisolone Sodium Succinate (Methylprednisolone Sod Succ 40 Mg/Ml Vial) 40 mg IVPUSH Q12H [facility] [place] Last Admin: 10/05/21 11:37 Dose: 40 mg Documented by: GINI Ondansetron HCl (Ondansetron Hcl 4 Mg/2 Ml Vial) 4 mg IVPUSH Q8H PRN PRN Reason: Nausea and Vomiting Sacubitril/Valsartan (Sacubitril/Valsartan / 1 Tab Tablet) 1 tab PO BID [facility] [place]; Protocol Sertraline HCl (Sertraline Hcl 25 Mg Tablet) 25 mg PO BEDTIME [facility] [place] Sodium Chloride (0.9 % Sodium Chloride Flush 3 Ml Syringe) 3 ml IVFLUSH QSHIFT [facility] [place] Last Admin: 10/05/21 07:14 Dose: 3 ml Documented by: GINI Spironolactone (Spironolactone 25 Mg Tablet) 12.5 mg PO DAILY [facility] [place]; Protocol Last Admin: 10/05/21 11:34 Dose: 12.5 mg Documented by: STANISLAVOC Labs CBC & Chem 7: 10/05/21 06:22 10/05/21 06:22 Labs: Laboratory Results - last 24 hr 10/04/21 10/04/21 10/04/21 20:34 20:34 20:34 MCV 92.1 MCH 29.5 MCHC 32.0 RDW 18.9 H Plt Count 281 MPV 9.6 Immature Gran % (Auto) 0.4 Neut % (Auto) 71.5 Lymph % (Auto) 18.9 L Stone % (Auto) 6.2 Eos % (Auto) 2.1 Baso % (Auto) 0.9 Lymph # (Auto) 1.6 Stone # (Auto) 0.5 Eos # (Auto) 0.2 Baso # (Auto) 0.1 Abs Immat Gran (auto) 0.03 Absolute Neuts (auto) 6.1 Absolute Nucleated RBC 0.000 Nucleated RBC % (auto) 0.0 Anion Gap 12 Estim Creat Clear Calc 120.3 Estimated GFR > 60 Random Glucose 117 H Calcium 8.6 Troponin I High Sens 8.8 B-Natriuretic Peptide COVID-19 ([facility]) [employer] 10/04/21 10/04/21 10/05/21 20:56 23:42 00:09 MCV MCH MCHC RDW Plt Count MPV Immature Gran % (Auto) Neut % (Auto) Lymph % (Auto) Stone % (Auto) Eos % (Auto) Baso % (Auto) Lymph # (Auto) Stone # (Auto) Eos # (Auto) Baso # (Auto) Abs Immat Gran (auto) Absolute Neuts (auto) Absolute Nucleated RBC Nucleated RBC % (auto) Anion Gap Estim Creat Clear Calc Estimated GFR Random Glucose Calcium Troponin I High Sens 9.8 B-Natriuretic Peptide 3298 H COVID-19 ([facility]) Negative COVID-5[employer] See Note 10/05/21 10/05/21 06:22 06:22 MCV 91.6 MCH 29.2 MCHC 31.9 RDW 18.4 H Plt Count 255 MPV 9.5 Immature Gran % (Auto) 0.3 Neut % (Auto) 86.3 H Lymph % (Auto) 10.6 L Stone % (Auto) 1.9 L Eos % (Auto) 0.5 Baso % (Auto) 0.4 Lymph # (Auto) 0.8 L Stone # (Auto) 0.1 Eos # (Auto) 0.0 Baso # (Auto) 0.0 Abs Immat Gran (auto) 0.02 Absolute Neuts (auto) 6.4 Absolute Nucleated RBC 0.000 Nucleated RBC % (auto) 0.0 Anion Gap 15 Estim Creat Clear Calc 121.7 Estimated GFR > 60 Random Glucose 130 H Calcium 8.5 Troponin I High Sens B-Natriuretic Peptide COVID-19 ([facility]) COVID-19 Clin Com Assessment and Plan (1) Acute exacerbation of CHF (congestive heart failure): Status: Acute (2) COPD exacerbation: Status: Acute (3) Chest pain: Status: Acute (4) HTN (hypertension): Status: Acute Assessment and Plan: 51-year-old male with past medical history of CHF presents to the hospital with complaint of shortness of breath found to have CHF exacerbation as well as COPD exacerbation Acute on chronic systolic CHF exacerbation last echo in May showed EF 15-20%/ status post ICD placement Admitted with dyspnea, orthopnea, PND, lower extremity edema, and imaging evidence of pulmonary congestion Patient feels a little better since admission will continue IV Lasix drip, low-sodium diet, Will resume home dose of Aldactone Case discussed with Cardiology will place patient on Entresto and DC losartan continue Coreg Mild acute COPD exacerbation Continue low-dose IV Solu-Medrol, DuoNeb p.r.n. and schedule, follow clinical course, no pneumonia. 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 Eliquis ( not clear why pt on eliquis) Quality Stroke Does the patient have a stroke diagnosis?: No VTE Prior VTE?: No VTE Risk Level:: Medical - moderate - high VTE Device Contraindication: Treatment Not Indicated VTE Drug Contraindication: N/A - Med Ordered
[2021-10-05] MEDS: Apixaban 5 MG TABLET PO (17:30)
--- NOTE | 2021-10-05 17:52 | PM.DS ---
DS: Providers Provider Date of Service: 10/05/21 Date of admission: 10/04/21 23:15 Date of discharge: 10/05/21 Primary care physician: Mike Duong MD Consults: 10/04/21 23:31 Consult to Cardiology Routine Consulting Provider: Bud Collado Reason for consultation: chf Has provider been notified: No DS: Diagnosis Discharge Diagnosis (1) Acute exacerbation of CHF (congestive heart failure): Status: Acute (2) COPD exacerbation: Status: Acute (3) Chest pain: Status: Acute (4) HTN (hypertension): Status: Acute DS: Summary Hospital Course Hospital Course: Chief Complaint: SOB , leg swelling This is a 51-year-old male with past medical history of CHF status post ICD, COPD, hypertension, and SVT who presents to the hospital with complaints of shortness of breath as well as leg swelling.? Patient also complains of orthopnea PND.? His symptoms started about a week ago, he is also complaining of squeezing chest pain localized to the left, radiating across his chest, started this morning, constant, exacerbated by severe cough, as well as breathing, patient reports that he also has an increased cough and sputum production.? He denies any fever no chills, no abdominal pain nausea or vomiting, no diarrhea constipation, no? urinary symptoms.? Patient reports that he does sometimes misses his doses of his Lasix although he tries not to. Stable with temperature of 98?, heart rate of 108, respiratory rate of 22, blood pressure 125/85, satting 99% on room air Labs are significant for WBC count of 8.5, 8.8 with 9.8 repeat, BNP of 3298, Chest x-ray shows hazy right middle lobe airspace opacities which is unchanged from previous Patient will be admitted for further management of CHF exacerbation Hospital course 51-year-old male with past medical history of CHF presents to the hospital with complaint of shortness of breath found to have CHF exacerbation as well as COPD exacerbation was admitted for continued monitoring and treatment however patient eloped. Discharge diagnosis Acute on chronic systolic CHF exacerbation last echo in May showed EF 15-20%/ status post ICD placement, patient admitted with dyspnea, orthopnea, PND, lower extremity edema, and imaging evidence of pulmonary congestion, placed on IV Lasix drip low-sodium diet and Entresto, patient was doing better on current treatment however he eloped. 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 Awake alert, no acute distress NECK:?+ JVD HEART:? regular rate and rhythm, no murmurs LUNGS: few scattered wheeze, diminished breath sound, basilar crackles, no respiratory distress ABDOMEN:? Soft nontender bowel sounds audible, no rigidity no guarding EXTREMITIES: 2+ edema., good peripheral pulses NEUROLOGIC: No gross deficits Psych appropriate affect Discharge Plan Discharge Patient Disposition: Elopement Discharge Medications: No Action atorvastatin 40 mg tablet 1 tab PO QAM RF: 0 amiodarone 200 mg tablet 1 tab PO QAM RF: 0 hydrocodone-acetaminophen 10-325 mg tablet 1 tab PO Q4-6H PRN (Reason: pain) RF: 0 spironolactone 25 mg tablet 0.5 tab PO QAM RF: 0 sertraline 25 mg tablet 1 tab PO QPM RF: 0 albuterol sulfate 90 mcg/actuation HFA aerosol inhaler 2 puff inhalation Q4-6H RF: 0 Eliquis 5 mg Tablet 5 mg PO BID@0600,1800 Qty: 60 RF: 0 carvedilol [Coreg] 3.125 mg tablet 3.125 mg PO BID Qty: 60 RF: 0 furosemide [Lasix] 40 mg tablet 40 mg PO BID 30 Days Qty: 60 RF: 5 losartan 50 mg tablet 50 mg PO QAM Qty: 30 RF: 5 Discharge Date/Time: 10/05/21 19:25
--- NOTE | 2021-10-05 18:26 | PC.NURSE ---
pt is requesting to go home, this rn is claudio connecting with dr robertson with this update
--- NOTE | 2021-10-05 19:13 | PC.NURSE ---
this nurse received report from previous RN and walked into room and pt was not in room. cardiac leads and nasal cannula were on the flood, drops of blood on the floor led to the trash in which pts IV was found. this RN, previous RN and Stephenie Wyman RN looked for pt in waiting room and outside from of hospital and could not find pt. hospitalist and charge nurse notified.
--- NOTE | 2021-10-05 20:03 | MHC.CM.PN ---
CM met with admitted patient with bed assignment to room 377. A&Ox3. IMM reviewed and signed per protocol 10/05/21@7803. Pt lives alone, uses no DME and has no services. Pt is fully vaccinated with Moderna. No HCP on file. Education provided, pt declines at this time. States he has no one to name as HCP. Pt states he has difficulty ambulating short distances without SOB. Pt declines any referral to VNA services at discharge. CM to follow for d/c needs.
--- NOTE | 2021-10-06 07:38 | PHA.MEDREC ---
Pharmacy Consult ? Medication Reconciliation Pharmacy has completed the medication reconciliation. RN completed med red from overnight and RPH reviewed.
== END 2021-10-05 19:25 | disposition left against medical advice (07) | DRG 291 ==
LOC: HO.ED 22:47 → HO.EDOVER 23:23
PROVIDERS: Admitting Provider Internal Medicine; Emergency Provider Internal Medicine; PCP Internal Medicine; Visit Provider Hospitalist
DX: I11.0 Hypertensive heart disease with heart failure (principal); I50.23 Acute on chronic systolic (congestive) heart failure; J44.1 Chronic obstructive pulmonary disease with (acute) exacerbation; I47.1 Supraventricular tachycardia; E78.5 Hyperlipidemia, unspecified; I42.8 Other cardiomyopathies; F39 Unspecified mood [affective] disorder; Z95.0 Presence of cardiac pacemaker; Z20.822 Contact with and (suspected) exposure to COVID-19; F17.210 Nicotine dependence, cigarettes, uncomplicated; Z91.19 Patient's noncompliance with other medical treatment and regimen; Z71.6 Tobacco abuse counseling; Z79.01 Long term (current) use of anticoagulants; Z79.899 Other long term (current) drug therapy
CPT/HCPCS: 36415; 71045; 80048; 83880; 84484; 85025; 87635; 93005; 96365; 96375; 99285; 99291; J1940; J2270; J2920

== ENCOUNTER → 2021-10-11 12:57 | Outpatient (BNVA) | payer MEDICARE, MEDICAID, SELFPAY | PROVIDERS: PCP Internal Medicine; Referring Provider Internal Medicine; Visit Provider Nurse Practitioner Family | DX: I11.0 Hypertensive heart disease with heart failure (principal); I50.22 Chronic systolic (congestive) heart failure; I42.8 Other cardiomyopathies; I47.2 Ventricular tachycardia; Z95.810 Presence of automatic (implantable) cardiac defibrillator; Z98.890 Other specified postprocedural states | CPT/HCPCS: 99212 ==

== ENCOUNTER 2021-10-17 13:33 | Outpatient (REF) | payer MEDICARE, MEDICAID, SELFPAY | END 2021-10-17 13:34 | disposition home or self-care (01) | LOC: HO.LAB 13:33 | PROVIDERS: Visit Provider Internal Medicine | DX: Z20.822 Contact with and (suspected) exposure to COVID-19 (principal) | CPT/HCPCS: C9803; U0003; U0005 ==

== ENCOUNTER 2021-11-05 15:13 | Inpatient (IN) | payer MEDICARE, MEDICAID, SELFPAY ==
[2021-11-05] VITALS (7 sets, daily range): BP systolic 106–144; BP diastolic 64–105; PULSE 92–103; RESP 18–22; TEMP -13.3–36.6; O2SAT 90–98; BMI 36.3; BMI 36.0
--- NOTE | ~2021-11-05 | XR_ITS ---
EXAMINATION: XR CHEST CLINICAL INFORMATION: Shortness of breath COMPARISON: Previous chest x-ray most recent October 2021 TECHNIQUE: 2 views of the chest were obtained. FINDINGS: The cardiac silhouette is enlarged but stable. There is a left subclavian AICD device projecting over the ventricular apex that appears unchanged. Hilar and mediastinal contours are unremarkable. The lungs are clear. There is no pleural effusion or pneumothorax. There are degenerative changes of the spine. XR/XR chest 2V IMPRESSION: Stable enlargement of the cardiac silhouette.
--- NOTE | 2021-11-05 15:38 | ECG_ITS ---
Test Reason : DYSPNEA Blood Pressure : / mmHG Vent. Rate : 100 BPM Atrial Rate : 100 BPM P-R Int : 162 ms QRS Dur : 088 ms QT Int : 372 ms P-R-T Axes : 055 -33 123 degrees QTc Int : 479 ms Normal sinus rhythm Possible Left atrial enlargement Left axis deviation Septal infarct , age undetermined Inferior infarct , age undetermined T wave abnormality, consider lateral ischemia Abnormal ECG When compared with ECG of 04-OCT-2021 19:54, No significant change was found Referred By: Generic ED Physician Electronically Signed By:Macario Thacker
[2021-11-05 16:00] LABS: MANUAL DIFF FLAG NO
[2021-11-05 16:01] LABS: Appearance Urine CLEAR; Glucose Urine UA 100 MG/DL (NEG); Leukocyte Esterase Urine NEG (NEG); PH 5.5 (5.0-8.0); Specific Gravity - Urine >= 1.030 (1.005-1.025); Urine Blood NEG (NEG); Urine Ketones 5 MG/DL (NEG); Urine Protein 3+ MG/DL (NEG-TRACE)
[2021-11-05 16:11] LABS: Basophils Absolute Auto 0.1 X10*3/uL (0.0-0.2); Basophils Percent Auto 0.8 % (0-2); Eosinophils Absolute Auto 0.1 X10*3/uL (0.0-0.4); Eosinophils Percent Auto 0.8 % (0-4); Hematocrit 45.3 % (42.0-52.0); Hemoglobin 14.4 g/dl (14.0-18.0); Imm Gran Abs Auto 0.03 X10*3/uL (0.00-0.03); Imm Gran Pct Auto 0.3 % (0.0-0.4); Lymphocytes Absolute Auto 1.6 X10*3/uL (1.2-4.9); Lymphocytes Percent Auto 15.9 % (20-40); Mean Corpuscular HGB Conc 31.8 g/dl (31.0-36.0); Mean Corpuscular Hemoglobin 29.9 pg (27.0-33.0); Mean Platelet Volume 10.3 fL (9.4-12.4); Monocytes Absolute Auto 0.8 X10*3/uL (0.1-1.2); Monocytes Percent Auto 8.4 % (2-11); Neutrophils Absolute Auto 7.4 x10*3/uL (2.0-8.3); Neutrophils Percent Auto 73.8 % (45-73); Platelet Count 304 X10*3/uL (160-400); Red Blood Count 4.82 X10*6/uL (4.60-5.80); Red Cell Distribution Width 20.4 % (11.0-16.0)
[2021-11-05 16:12] LABS: Nitrite Urine NEG (NEG); UACC Culture Trigger NO
[2021-11-05 16:13] LABS: Color Urine ORANGE
[2021-11-05 16:17] LABS: Anion Gap 13 (12-20); Blood Urea Nitrogen 15 mg/dL (9-16); Calcium 9.1 mg/dL (8.4-10.2); Carbon Dioxide 25 mmol/L (22-29); Chloride 106 mmol/L (96-108); Creatinine Clr Calc Pharmacy 107.4; Estimated Glomerular Filt Rate > 60; Glucose Random 121 mg/dL (60-115); Potassium 3.8 mmol/L (3.3-5.1); Sodium 140 mmol/L (135-145)
[2021-11-05 16:17] LABS: Bacteria Urine TRACE /LPF; Mucus Urine 2+ /LPF; Squamous Epithelial Cell Urine TRACE /LPF
[2021-11-05 16:22] LABS: B Type Natriuretic Peptide 3102 pg/mL (<100); Troponin-I High Sensitivity 22.8 ng/L (<3.5-35.0)
--- NOTE | 2021-11-05 16:58 | ED.SOB ---
HPI - SOB/Dyspnea General Chief Complaint: Dyspnea Stated Complaint: Retaining water ?CHF/SOB Time Seen by Provider: 11/05/21 16:47 Source: patient Mode of arrival: ambulatory Limitations: no limitations History of Present Illness HPI Narrative: 51-year-old male with a history of systolic heart failure on 80 mg of Lasix daily, COPD, hypertension here with complaints of 20 lb weight gain in the last week with orthopnea, dyspnea on exertion, lower extremity edema over the last 2-3 days. Patient tells me he has been compliant with his daily medications. He is having some chest pressure x several days with a nonproductive cough. No fevers, chills. Received moderna vaccine x 2 as well as booster. Related Data Home Medications Medication Instructions Recorded Confirmed albuterol sulfate 90 mcg/actuation 2 puff INHALATION Q4-6H 06/14/21 11/05/21 aerosol inhaler amiodarone 200 mg tablet 200 mg PO DAILY 06/14/21 11/05/21 atorvastatin 40 mg tablet 40 mg PO DAILY 06/14/21 11/05/21 hydrocodone 10 mg-acetaminophen 1 tab PO Q4-6H PRN 06/14/21 11/05/21 325 mg tablet sertraline 25 mg tablet 25 mg PO BEDTIME 06/14/21 11/05/21 spironolactone 25 mg tablet 12.5 mg PO DAILY 06/14/21 11/05/21 furosemide 40 mg tablet 1 tab PO BEDTIME PRN 11/05/21 11/05/21 furosemide 40 mg tablet (Lasix) 40 mg PO DAILY 11/05/21 11/05/21 losartan 50 mg tablet 50 mg PO DAILY 11/05/21 11/05/21 Previous Rx's Medication Instructions Recorded apixaban 5 mg tablet (Eliquis) 5 mg PO BID@0600,1800 #60 tab 06/18/21 carvedilol 3.125 mg tablet (Coreg) 3.125 mg PO BID #60 tab 06/18/21 Allergies Allergy/AdvReac Type Severity Reaction Status Date / Time sacubitril [From Entresto] AdvReac Rash Verified 10/12/21 08:14 valsartan [From Entresto] AdvReac Rash Verified 10/12/21 08:14 Review of Systems Review of Systems: Yes all other systems are reviewed and are negative Constitutional: Constitutional: Reports no additional constitutional complaints, Denies body ache(s), Denies chills, Denies fever(s), Denies headache(s) and Denies weakness Eyes: Eyes: Reports no additional eye complaints and Denies change in vision ENT: Reports system reviewed and no additional complaints, except as documented, Denies dizziness, Denies headache(s), Denies nasal congestion, Denies nasal discharge and Denies neck pain Cardiovascular: Cardiovascular: Reports no additional cardiovascular complaints, Reports chest pain, Reports leg edema, Reports dyspnea, Reports dyspnea on exertion and Reports orthopnea Respiratory: Respiratory: Reports no additional respiratory complaints, Reports cough, Reports dyspnea and Reports dyspnea on exertion Gastrointestinal: Gastrointestinal: Reports no additional gastrointestinal complaints, Denies abdominal pain, Denies diarrhea, Denies nausea and Denies vomiting Genitourinary: Genitourinary: Denies urinary incontinence Musculoskeletal: Musculoskeletal: Reports no additional musculoskeletal complaints, Denies back pain, Denies arthralgias, Denies joint swelling, Denies neck pain, Denies numbness and Denies tingling Integumentary/Breasts: Skin/Breast: Reports system reviewed and no additional complaints, except as docu and Denies rash Neurologic: Reports system reviewed and no additional complaints, except as documented, Denies Abnormal speech present, Denies dizziness, Denies headache(s), Denies numbness, Denies tingling and Denies weakness PMFSH Past Medical History Attestation statement: The following information was validated with the patient. Source: old records reviewed and nursing notes reviewed Medical History (Updated 11/05/21 @ 17:52 by Elizabeth Burnett NP) Acute on chronic systolic heart failure Artificial cardiac pacemaker Back injuries Cardiomyopathy HTN (hypertension) ICD (implantable cardioverter-defibrillator) in place NSVT (nonsustained ventricular tachycardia) Surgical History Hx of cardiac cath (~08/2015) Family History Family History Father Prostate cancer Mother No problems noted. Social History Social History Household Members: None Housing: Apartment Do you presently have visiting nurse or other home services: No Alcohol intake: former Patient Tobacco Use Status: Current everyday Tobacco user Tobacco use type: Cigarette Cigarettes Per Day: 5 Use of substances other than those prescribed or required for medical reasons: No Advance Directives: No Advance Directives Information Provided: No service: No Current occupational status: disabled Physical Exam Vital Signs: Vital Signs: Last Vital Signs Temp 8 F L 11/05/21 16:48 Pulse 102 H 11/05/21 16:48 Resp 20 11/05/21 16:48 BP 144/105 H 11/05/21 16:48 Pulse Ox 94 11/05/21 16:48 BMI result Body Mass Index 36.3 Const: General: cooperative, healthy appearing, comfortable and no acute distress Orientation/consciousness: patient oriented x3 Limitations: no limitations HENMT: Head: Yes normal to inspection Ears: hearing grossly normal bilaterally General nose exam: Normal external nose present Face and sinus: Yes normal facial exam Mouth: Normal oral and palatal mucosa present Throat: Yes posterior oropharynx normal Eyes: General: appearance normal, both eyes and all related structures Pupils: Equal, round and reactive pupils present Neck: Neck: Yes normal visual inspection Chest: Chest palpation & inspection: normal inspection of the chest Resp: Other: Mild tachypnea with talking, diminished breath sounds bilaterally. Cardio: Rate: regular rate Rhythm: regular rhythm Peripheral pulses: Peripheral pulses 2+ throughout GI: Inspection: Yes normal to inspection Palpation (GI): Soft to palpation and nontender Auscultation: normal bowel sounds Back/Spine/Pelvis: Thoracic/Lumbar Spine: thoracic and lumbar spine normal to inspection Skin: General skin exam: no rashes or lesions noted Neuro: General: patient oriented x3, no focal motor deficits and normal sensation to monofilament Cranial nerves: Yes Equal, round and reactive pupils present Cognition (Neuro): normal cognition Speech: No Abnormal speech present Gait exam (Neuro): Normal gait present Motor exam (neuro): 5/5 motor strength present throughout Extrem: Other: Bilateral pitting edema 2+ extending to the knees. Course Course Course Narrative: 51 yo male here with complaints of orthopnea, [place], cough, atypical chest pressure, lower extremity swelling with a 10lb weight gain. Clinically patients appears in fluid overload. Multiple admits in the past for decompensated CHF but has been from some medication non-compliance. Patient tells me he has been taking his medications as prescribed. Will need labs, CXR, EKG. 8412-Reviewed labs which show elevated troponin. EKG shows ST with rate [address] changes unchanged from previous. Atypical for ACS. Plan for repeat 3 hr troponin. BNP 3102 which is similar to patient's previous. However, clinically appears in fluid overload on high doses of oral lasix. Could benefit from IV duiresis. Spoke to Dr Thacker who recommended 80mg lasix IV BID and if no improvement after doses then lasix drip. Spoke to Dr Song who accepted patient. MDM - SOB/Dyspnea Medical Records Attestation: I reviewed the patient's medical records. Lab Data Attestation: I reviewed the patient's lab results. Result diagrams: 11/05/21 15:49 11/05/21 15:49 Labs: Lab Results 11/05/21 11/05/21 11/05/21 Range/Units 15:49 15:49 15:49 WBC 10.0 (4.8-10.8) X10*3/uL RBC 4.82 (4.60-5.80) X10*6/uL Hgb 14.4 (14.0-18.0) g/dl Hct 45.3 (42.0-52.0) % MCV 94.0 (80.0-98.0) fL MCH 29.9 (27.0-33.0) pg MCHC 31.8 (31.0-36.0) g/dl RDW 20.4 H (11.0-16.0) % Plt Count 304 (160-400) X10*3/uL MPV 10.3 (9.4-12.4) fL Immature Gran % (Auto) 0.3 (0.0-0.4) % Neut % (Auto) 73.8 H (45-73) % Lymph % (Auto) 15.9 L (20-40) % [place] % (Auto) 8.4 (2-11) % Eos % (Auto) 0.8 (0-4) % Baso % (Auto) 0.8 (0-2) % Lymph # (Auto) 1.6 (1.2-4.9) X10*3/uL [place] # (Auto) 0.8 (0.1-1.2) X10*3/uL Eos # (Auto) 0.1 (0.0-0.4) X10*3/uL Baso # (Auto) 0.1 (0.0-0.2) X10*3/uL Abs Immat Gran (auto) 0.03 (0.00-0.03) X10*3/uL Absolute Neuts (auto) 7.4 (2.0-8.3) x10*3/uL Absolute Nucleated RBC 0.000 (0.0-0.012) X10*3/uL Nucleated RBC % (auto) 0.0 (0.0-0.2) /100WBC Sodium 140 (135-145) mmol/L Potassium 3.8 (3.3-5.1) mmol/L Chloride 106 (96-108) mmol/L Carbon Dioxide 25 (22-29) mmol/L Anion Gap 13 (12-20) BUN 15 (9-16) mg/dL Creatinine 0.96 (0.5-1.4) mg/dL Estim Creat Clear Calc 107.4 Estimated GFR > 60 Random Glucose 121 H (60-115) mg/dL Calcium 9.1 D (8.4-10.2) mg/dL Troponin I High Sens 22.8 (<3.5-35.0) ng/L B-Natriuretic Peptide 3102 H (<100) pg/mL Urine Color Urine Appearance Urine pH (5.0-8.0) Ur Specific [place] (1.005-1.025) Urine Protein (NEG-TRACE) MG/DL Urine Glucose (UA) (NEG) MG/DL Urine Ketones (NEG) MG/DL Urine Blood (NEG) Urine Nitrite (NEG) Ur Leukocyte Esterase (NEG) Urine RBC (0) /HPF Urine WBC (0-4) /HPF Ur Squamous Epith Cells /LPF Urine Bacteria /LPF Hyaline Casts /LPF Urine Mucus /LPF 11/05/21 11/05/21 Range/Units 15:55 17:09 WBC (4.8-10.8) X10*3/uL RBC (4.60-5.80) X10*6/uL Hgb (14.0-18.0) g/dl Hct (42.0-52.0) % MCV (80.0-98.0) fL MCH (27.0-33.0) pg MCHC (31.0-36.0) g/dl RDW (11.0-16.0) % Plt Count (160-400) X10*3/uL MPV (9.4-12.4) fL Immature Gran % (Auto) (0.0-0.4) % Neut % (Auto) (45-73) % Lymph % (Auto) (20-40) % [place] % (Auto) (2-11) % Eos % (Auto) (0-4) % Baso % (Auto) (0-2) % Lymph # (Auto) (1.2-4.9) X10*3/uL [place] # (Auto) (0.1-1.2) X10*3/uL Eos # (Auto) (0.0-0.4) X10*3/uL Baso # (Auto) (0.0-0.2) X10*3/uL Abs Immat Gran (auto) (0.00-0.03) X10*3/uL Absolute Neuts (auto) (2.0-8.3) x10*3/uL Absolute Nucleated RBC (0.0-0.012) X10*3/uL Nucleated RBC % (auto) (0.0-0.2) /100WBC Sodium (135-145) mmol/L Potassium (3.3-5.1) mmol/L Chloride (96-108) mmol/L Carbon Dioxide (22-29) mmol/L Anion Gap (12-20) BUN (9-16) mg/dL Creatinine (0.5-1.4) mg/dL Estim Creat Clear Calc Estimated GFR Random Glucose (60-115) mg/dL Calcium (8.4-10.2) mg/dL Troponin I High Sens 21.0 (<3.5-35.0) ng/L B-Natriuretic Peptide (<100) pg/mL Urine Color ORANGE Urine Appearance CLEAR Urine pH 5.5 (5.0-8.0) Ur Specific [place] >= 1.030 H (1.005-1.025) Urine Protein 3+ H (NEG-TRACE) MG/DL Urine Glucose (UA) 100 H (NEG) MG/DL Urine Ketones 5 (NEG) MG/DL Urine Blood NEG (NEG) Urine Nitrite NEG (NEG) Ur Leukocyte Esterase NEG (NEG) Urine RBC 1-4 (0) /HPF Urine WBC 1-4 (0-4) /HPF Ur Squamous Epith Cells TRACE /LPF Urine Bacteria TRACE /LPF Hyaline Casts 15-29 /LPF Urine Mucus 2+ /LPF Imaging Data Chest x-ray: Attestation: I personally reviewed and interpreted this imaging study as follows: Radiologist's impression: EXAMINATION: XR CHEST CLINICAL INFORMATION: Shortness of breath COMPARISON: Previous chest x-ray most recent October 2021 TECHNIQUE: 2 views of the chest were obtained. FINDINGS: The cardiac silhouette is enlarged but stable. There is a left subclavian AICD device projecting over the ventricular apex that appears unchanged. Hilar and mediastinal contours are unremarkable. The lungs are clear. There is no pleural effusion or pneumothorax. There are degenerative changes of the spine. XR/XR chest 2V IMPRESSION: Stable enlargement of the cardiac silhouette. ECG Data Attestation: I personally reviewed and interpreted this ECG as follows: ECG interpretation date: 11/05/21 ECG interpretation time: 19:54 Interpretation: Sinus tachycardia with rate 115, normal SC, normal QRS, QTC 475, nonspecific ST changes with T-wave inversion in the lateral leads which is un changed from previous Discharge Plan Discharge Clinical Impression: Acute systolic (congestive) heart failure Patient Disposition: Admitted As Inpatient
--- NOTE | 2021-11-05 17:23 | PM.IMHP ---
History of Present Illness Date of Service: 11/05/21 <Elizabeth Burnett NP - Last Filed: 11/05/21 18:08> Chief Complaint: Shortness of breath <Elizabeth Burnett NP - Last Filed: 11/05/21 18:08> 51-year-old man presenting to the ER with complaints of worsening shortness of breath and reported weight gain. He reports that he weighed himself this morning and he was 218 and when he was weight here in the ER he was 230. He is unsure which scale is off and it is hard to tell. He does have a history of congestive heart failure and was admitted in October of 2021 for acute congestive heart failure , unfortunately he eloped. Echocardiogram in May of 2021 showed EF of 15-20%, he has a history of ICD. He did report shortness of breath with ambulation and waking up in the middle of the night to catch his breath. He has noted increased swelling to his lower extremities and his lower abdomen with erythema. He was seen in the cardiology office in October of 2021 and his furosemide was increased to 80mg daily. He reports compliance with his furosemide and other medications. however when he was speaking to the pharmacist in the ER during his medication reconciliation he mentioned that he had only been taking only 1-40mg tablet daily and not 80 mg as he was prescribed. His BNP was noted to be elevated at 3102, mild tachycardia, no hypoxia noted. He was given a dose of IV Lasix. He be admitted for further management and treatment of acute on chronic heart failure with reduced ejection fraction <Elizabeth Burnett NP - Last Filed: 11/05/21 18:08> Review of Systems Review of Systems: Denies any recent fever chills or decrease in appetite respiratory See HPI cardiovascular See HPI gastrointestinal denies any dysphagia abdominal pain nausea vomiting or diarrhea genitourinary denies any dysuria frequency or hematuria musculoskeletal denies any joint pain or swelling neuropsych denies any weakness or seizures all other systems reviewed are negative <Elizabeth Burnett NP - Last Filed: 11/05/21 18:08> [facility] Medical History: Medical History (Updated 11/05/21 @ 17:52 by Elizabeth Burnett NP) Acute on chronic systolic heart failure Artificial cardiac pacemaker Back injuries Cardiomyopathy HTN (hypertension) ICD (implantable cardioverter-defibrillator) in place NSVT (nonsustained ventricular tachycardia) <Elizabeth Burnett NP - Last Filed: 11/05/21 18:08> Family History: Family History Father Prostate cancer Mother No problems noted. <Elizabeth Burnett NP - Last Filed: 11/05/21 18:08> Surgical History: Surgical History Hx of cardiac cath (~08/2015) <Elizabeth Burnett NP - Last Filed: 11/05/21 18:08> Social History: Social History Household Members: None Housing: House Do you presently have visiting nurse or other home services: No Alcohol intake: former Patient Tobacco Use Status: Current everyday Tobacco user Tobacco use type: Cigarette Cigarettes Per Day: 5 service: No Current occupational status: disabled <Elizabeth Burnett NP - Last Filed: 11/05/21 18:08> Meds Allergies/Adverse reactions: Allergies Allergy/AdvReac Type Severity Reaction Status Date / Time sacubitril [From Entresto] AdvReac Rash Verified 10/12/21 08:14 valsartan [From Entresto] AdvReac Rash Verified 10/12/21 08:14 <Elizabeth Burnett NP - Last Filed: 11/05/21 18:08> Active Medications: Current Medications Pharmacy Consult (Consult Rx Perform Med Rec) 1 each MISCELLANE ONCE PRN PRN Reason: Consult order <Elizabeth Burnett NP - Last Filed: 11/05/21 18:08> Home medications: Home Medications Medication Instructions Recorded Confirmed Last Taken Type albuterol sulfate 90 mcg/actuation 2 puff INHALATION Q4-6H 06/14/21 11/05/21 09/06/21 History aerosol inhaler amiodarone 200 mg tablet 200 mg PO DAILY 06/14/21 11/05/21 09/06/21 History atorvastatin 40 mg tablet 40 mg PO DAILY 06/14/21 11/05/21 09/06/21 History hydrocodone 10 mg-acetaminophen 1 tab PO Q4-6H PRN 06/14/21 11/05/21 09/05/21 History 325 mg tablet sertraline 25 mg tablet 25 mg PO BEDTIME 06/14/21 11/05/21 09/05/21 History spironolactone 25 mg tablet 12.5 mg PO DAILY 06/14/21 11/05/21 09/06/21 History furosemide 40 mg tablet 1 tab PO BEDTIME PRN 11/05/21 11/05/21 Unknown History furosemide 40 mg tablet (Lasix) 40 mg PO DAILY 11/05/21 11/05/21 Unknown History losartan 50 mg tablet 50 mg PO DAILY 11/05/21 11/05/21 Unknown History <Elizabeth Burnett NP - Last Filed: 11/05/21 18:08> Physical Exam Vital Signs and Narrative: Vital Signs: Last Vital Signs Temp 8 F L 11/05/21 16:48 Pulse 102 H 11/05/21 16:48 Resp 20 11/05/21 16:48 BP 144/105 H 11/05/21 16:48 Pulse Ox 94 11/05/21 16:48 BMI result Body Mass Index 36.3 <Elizabeth Burnett NP - Last Filed: 11/05/21 18:08> Appearing in no acute distress head is normocephalic atraumatic eyes pupils are PERRLA sclera is anicteric mouth throat mucous membranes are intact and moist neck is supple no lymphadenopathy, no JVD noted lung sounds rales right lower lobe heart regular rate rhythm, clear S1, S2, +2-3 lower ext edema , erythema to lower abdomen with edema positive bowel sounds, abdomen is soft, nontender neuro patient is alert x3, no focal deficits <Elizabeth Burnett NP - Last Filed: 11/05/21 18:08> Results Labs CBC and Chem 7: : 11/06/21 06:02 11/07/21 06:05 <Elizabeth Burnett NP - Last Filed: 11/05/21 18:08> Labs: Laboratory Results - last 24 hr 11/05/21 11/05/21 11/05/21 15:49 15:49 15:49 MCV 94.0 MCH 29.9 MCHC 31.8 RDW 20.4 H Plt Count 304 MPV 10.3 Immature Gran % (Auto) 0.3 Neut % (Auto) 73.8 H Lymph % (Auto) 15.9 L [place] % (Auto) 8.4 Eos % (Auto) 0.8 Baso % (Auto) 0.8 Lymph # (Auto) 1.6 [place] # (Auto) 0.8 Eos # (Auto) 0.1 Baso # (Auto) 0.1 Abs Immat Gran (auto) 0.03 Absolute Neuts (auto) 7.4 Absolute Nucleated RBC 0.000 Nucleated RBC % (auto) 0.0 Anion Gap 13 Estim Creat Clear Calc 107.4 Estimated GFR > 60 Random Glucose 121 H Calcium 9.1 D Troponin I High Sens 22.8 B-Natriuretic Peptide 3102 H Urine Color Urine Appearance Urine pH Ur Specific [place] Urine Protein Urine Glucose (UA) Urine Ketones Urine Blood Urine Nitrite Ur Leukocyte Esterase Urine RBC Urine WBC Ur Squamous Epith Cells Urine Bacteria Hyaline Casts Urine Mucus 11/05/21 15:55 MCV MCH MCHC RDW Plt Count MPV Immature Gran % (Auto) Neut % (Auto) Lymph % (Auto) [place] % (Auto) Eos % (Auto) Baso % (Auto) Lymph # (Auto) [place] # (Auto) Eos # (Auto) Baso # (Auto) Abs Immat Gran (auto) Absolute Neuts (auto) Absolute Nucleated RBC Nucleated RBC % (auto) Anion Gap Estim Creat Clear Calc Estimated GFR Random Glucose Calcium Troponin I High Sens B-Natriuretic Peptide Urine Color ORANGE Urine Appearance CLEAR Urine pH 5.5 Ur Specific [place] >= 1.030 H Urine Protein 3+ H Urine Glucose (UA) 100 H Urine Ketones 5 Urine Blood NEG Urine Nitrite NEG Ur Leukocyte Esterase NEG Urine RBC 1-4 Urine WBC 1-4 Ur Squamous Epith Cells TRACE Urine Bacteria TRACE Hyaline Casts 15-29 Urine Mucus 2+ <Elizabeth Burnett NP - Last Filed: 11/05/21 18:08> Imaging Radiologist's Impressions: Impressions Chest X-Ray 11/05/21 16:08 IMPRESSION: Stable enlargement of the cardiac silhouette. <Elizabeth Burnett NP - Last Filed: 11/05/21 18:08> Assessment and Plan (1) Acute on chronic HFrEF (heart failure with reduced ejection fraction): Status: Acute <Elizabeth Burnett NP - Last Filed: 11/05/21 18:08> (2) COPD (chronic obstructive pulmonary disease): Status: Acute <Elizabeth Burnett NP - Last Filed: 11/05/21 18:08> (3) H/O: HTN (hypertension): Status: Acute <Elizabeth Burnett NP - Last Filed: 11/05/21 18:08> This is a 51-year-old male with past medical history of CHF presents to the hospital with complaint of shortness of breath found to have CHF exacerbation as well as COPD exacerbation Acute on chronic diastolic heart failure with reduced ejection fraction Likely secondary to medication noncompliance 80 mg IV twice daily Cardiology consultation Follow intake and output closely, daily weights History of mobile mass attached ICD lead Continue Eliquis History ventricular tachycardia Continue amiodarone and Coreg COPD. No exacerbation duo nebs if needed. Hypertension. Stable blood pressure. Continue losartan DVT prophylaxis with Karen Attending Dr. Song <Elizabeth Burnett NP - Last Filed: 11/05/21 18:08> Quality Stroke Does the patient have a stroke diagnosis?: No <Elizabeth Burnett NP - Last Filed: 11/05/21 18:08> VTE Prior VTE?: No <Elizabeth Burnett NP - Last Filed: 11/05/21 18:08> VTE Risk Level:: Medical - moderate - high <Elizabeth Burnett NP - Last Filed: 11/05/21 18:08> VTE Device Contraindication: Treatment Not Indicated <Elizabeth Burnett NP - Last Filed: 11/05/21 18:08> VTE Drug Contraindication: N/A - Med Ordered <Elizabeth Burnett NP - Last Filed: 11/05/21 18:08>
[2021-11-05] MEDS: Furosemide 100 MG/10 ML VIAL 80 MG IVPUSH (17:31)
--- NOTE | 2021-11-05 17:43 | PM.EVENT ---
Event Note Date of Service: 11/05/21 Event Note: This patient is seen and examined with APC. 51-year-old male with past medical history of CHF status post ICD, COPD, hypertension, and SVT who presents to the hospital with complaints worsening shortness of breath, weight gain, leg swelling, dry cough 3-4 week duration. He says that he shortness of breath progressively getting worse from 1 month he was in cardiology office last month when his Lasix was increased to 80 mg p.o. daily. he claims to be taking it every day, says that he gained almost 10-20 lb weight as per patient. He also has PND and orthopnea Lab imaging, EKG reviewed and personally interpreted. CBC and BMP seems fine troponin flat BNP is 3100 which is slightly better than last admission chest x-ray:Stable enlargement of the cardiac silhouette. Physical exam : please see h&p Appearance: Alert.? Oriented X3.? not in distress.? Eyes: Pupils equal, round and reactive to light.? ENT: Pharynx normal.? Moist mucous membranes. cvs: rrr, [id number] ,has jvd+ abd: no rebound or guarding ,nt, bs present. neuro: axo3 , nonfocal. ext: 3+ leg edema chest: fair air entry , mild rales at bases. not hypoxic. talking in full sentences assessment and plan coordinated in APCs note, Agree with the plan in addition: acute on chronic diastolic CHF exacerbation: Started the patient IV Lasix 80 b.i.d. monitor I&O daily weight low-salt diet cough medication cardiology consult. has history of COPD also: continue home medications. history of mobile mass on ICD continue Eliquis.
--- NOTE | 2021-11-05 18:06 | PHA.MEDREC ---
Pharmacy Consult ? Medication Reconciliation Pharmacy has completed the medication reconciliation. Patient reports he has furosemide 40 mg take 1 tablet daily and 1 tablet PRN. Recently he reports has been taking 40 mg BID. However he thought that the furosemide 1 tablet daily was in his medbox and the extra tablet was in a vial. However there is no furosemide in his medbox so he has only been take 1 tablet daily. Sayda Roger, JcD
[2021-11-05 18:23] LABS: COVID-19 Test Negative (Negative)
[2021-11-05] MEDS: Acetaminophen 325 MG TABLET 650 MG PO (18:46)
[2021-11-05] MEDS: Albuterol Sulfate 90 MCG 8 GM INHALER 2 PUFF INHALE ×2 (18:48→18:51)
[2021-11-05] MEDS: carvediloL 3.125 MG TABLET PO (20:20)
[2021-11-05] MEDS: Sertraline HCL 25 MG TABLET PO (20:20)
--- NOTE | 2021-11-05 21:56 | MHC.CM.PN ---
CM met with admitted patient with bed assignment pending. A&O. SOB with conversation IMM reviewed and signed per protocol 11/05/2021@2953. Pt lives alone with friends in the first floor apartment. No HCP on file. Education provided and patient declines at this time. Pt fully vaccinated with Moderna and has had booster. Pt uses no DME or services. Pt is requesting a cane. Pt may benefit from PT assessment while hospitalized. D/C plan is home with [facility] for chronic disease management and medication management. No referrals placed at this time pending hospital course. Pt will arrange transportation home. CM to follow for d/c needs.
--- NOTE | 2021-11-05 23:18 | PC.NURSE ---
Addendum entered by Rosa Banks RN 11/05/21 23:20: Report given to [facility] [place] Original Note: This nurse took over patient's care at 1999. Patient alert and oriented x3. Vital signs stable, on room air at this time. Lung sounds; crackles bilateral bases, sob. Urinating in urinal.
[2021-11-06] VITALS (10 sets, daily range): BP systolic 92–135; BP diastolic 73–98; PULSE 82–97; RESP 18–20; TEMP 36.6–37.1; O2SAT 93–100
[2021-11-06] MEDS: 0.9 % Sodium Chloride Flush 3 ML SYRINGE IVFLUSH ×2 (00:04→09:06)
[2021-11-06] MEDS: oxyCODONE HCl Immed Release 5 MG TABLET PO (00:35)
[2021-11-06] MEDS: Benzonatate 100 MG CAPSULE PO (05:11)
[2021-11-06] MEDS: Apixaban 5 MG TABLET PO ×2 (05:45→17:15)
[2021-11-06 06:19] LABS: MANUAL DIFF FLAG NO
[2021-11-06 06:23] LABS: Basophils Absolute Auto 0.1 X10*3/uL (0.0-0.2); Basophils Percent Auto 0.7 % (0-2); Eosinophils Absolute Auto 0.2 X10*3/uL (0.0-0.4); Eosinophils Percent Auto 1.9 % (0-4); Hematocrit 46.4 % (42.0-52.0); Hemoglobin 14.5 g/dl (14.0-18.0); Imm Gran Abs Auto 0.04 X10*3/uL (0.00-0.03); Imm Gran Pct Auto 0.4 % (0.0-0.4); Lymphocytes Absolute Auto 1.1 X10*3/uL (1.2-4.9); Lymphocytes Percent Auto 9.6 % (20-40); Mean Corpuscular HGB Conc 31.3 g/dl (31.0-36.0); Mean Corpuscular Volume 92.8 fL (80.0-98.0); Mean Platelet Volume 10.6 fL (9.4-12.4); Monocytes Absolute Auto 1.2 X10*3/uL (0.1-1.2); Monocytes Percent Auto 10.8 % (2-11); Neutrophils Absolute Auto 8.7 x10*3/uL (2.0-8.3); Neutrophils Percent Auto 76.6 % (45-73); Platelet Count 289 X10*3/uL (160-400); Red Cell Distribution Width 20.6 % (11.0-16.0); White Blood Count 11.3 X10*3/uL (4.8-10.8)
[2021-11-06 06:44] LABS: Anion Gap 11 (12-20); Blood Urea Nitrogen 12 mg/dL (9-16); Calcium 8.9 mg/dL (8.4-10.2); Carbon Dioxide 27 mmol/L (22-29); Chloride 105 mmol/L (96-108); Creatinine Clr Calc Pharmacy 111.5; Estimated Glomerular Filt Rate > 60; Glucose Random 116 mg/dL (60-115); Potassium 4.1 mmol/L (3.3-5.1); Sodium 139 mmol/L (135-145)
[2021-11-06 06:47] LABS: B Type Natriuretic Peptide 2662 pg/mL (<100)
[2021-11-06] MEDS: carvediloL 3.125 MG TABLET PO ×2 (09:06→20:40)
[2021-11-06] MEDS: Losartan Potassium 50 MG TABLET PO (09:06)
[2021-11-06] MEDS: Atorvastatin Calcium 40 MG TABLET PO (09:06)
[2021-11-06] MEDS: Amiodarone HCL 200 MG TABLET PO (09:06)
[2021-11-06] MEDS: Albuterol Sulfate 90 MCG 8 GM INHALER 2 PUFF INHALE ×3 (09:53→19:58)
[2021-11-06] MEDS: Furosemide 200 MG in 0.9 % Sodium Chloride 80 ML IVCONT ×2 (10:12→10:30)
--- NOTE | 2021-11-06 10:25 | PM.CNCAR ---
History of Present Illness History of Present Illness Date of Service: 11/06/21 Requesting physician: Elizabeth Burnett Chief complaint: HFrEF, CHF Narrative: 51-year-old gentleman with known cardiomyopathy with ejection fraction 15-20%. Severe decreased right ventricular systolic function. He also previously had mobile mass attached to the ICD lead there was some concern for vegetation versus clot. Also has moderate to severe tricuspid valve regurgitation based on last echocardiogram. His presenting lower extremity edema and leg pain along with shortness of breath. He looks significantly volume overloaded. He has been taking 80 mg Lasix 2 times a day. He has been taking medications reportedly regularly. Was started on Lasix bolus doses but was not responding well and was started on Lasix drip. He had some runs of nonsustained VT on the telemetry. He is already on amiodarone as an ICD. [facility] Past Medical History Medical History (Updated 11/05/21 @ 17:52 by Elizabeth Burnett NP) Acute on chronic systolic heart failure Artificial cardiac pacemaker Back injuries Cardiomyopathy HTN (hypertension) ICD (implantable cardioverter-defibrillator) in place NSVT (nonsustained ventricular tachycardia) Family History Family History Father Prostate cancer Mother No problems noted. Surgical History Surgical History Hx of cardiac cath (~08/2015) Social History Social History Household Members: None Housing: House Do you presently have visiting nurse or other home services: No Alcohol intake: former Patient Tobacco Use Status: Current everyday Tobacco user Tobacco use type: Cigarette Cigarettes Per Day: 5 service: No Current occupational status: disabled Meds Allergies Allergy/AdvReac Type Severity Reaction Status Date / Time sacubitril [From Entresto] AdvReac Rash Verified 10/12/21 08:14 valsartan [From Entresto] AdvReac Rash Verified 10/12/21 08:14 Active Medications: Current Medications Acetaminophen (Acetaminophen 325 Mg Tablet) 650 mg PO Q6H PRN PRN Reason: Pain, Mild (Pain Scale 1-3) Last Admin: 11/05/21 18:46 Dose: 650 mg Documented by: Albuterol Sulfate (Albuterol Sulfate 90 Mcg 8 Gm Inhaler) 2 puff INHALE Q4H [facility] Last Admin: 11/06/21 09:53 Dose: 2 puff Documented by: Amiodarone HCl (Amiodarone Hcl 200 Mg Tablet) 200 mg PO DAILY [facility] Last Admin: 11/06/21 09:06 Dose: 200 mg Documented by: Apixaban (Apixaban 5 Mg Tablet) 5 mg PO BID@0600,1800 [facility] Last Admin: 11/06/21 05:45 Dose: 5 mg Documented by: Atorvastatin Calcium (Atorvastatin Calcium 40 Mg Tablet) 40 mg PO DAILY [facility] Last Admin: 11/06/21 09:06 Dose: 40 mg Documented by: Benzonatate (Benzonatate 100 Mg Capsule) 100 mg PO TID PRN PRN Reason: Cough Last Admin: 11/06/21 05:11 Dose: 100 mg Documented by: Carvedilol (Carvedilol 3.125 Mg Tablet) 3.125 mg PO BID [facility]; Protocol Last Admin: 11/06/21 09:06 Dose: 3.125 mg Documented by: Furosemide 200 mg/ Sodium (Chloride) 100 mls @ 1 mls/hr IVCONT .Q24H [facility] Last Admin: 11/06/21 10:12 Dose: 2 mg/hr, 1 mls/hr Documented by: Losartan Potassium (Losartan Potassium 50 Mg Tablet) 50 mg PO DAILY [facility]; Protocol Last Admin: 11/06/21 09:06 Dose: 50 mg Documented by: Ondansetron HCl (Ondansetron Hcl 4 Mg/2 Ml Vial) 4 mg IVPUSH Q8H PRN PRN Reason: Nausea and Vomiting Pharmacy Consult (Consult Rx Perform Med Rec) 1 each MISCELLANE ONCE PRN PRN Reason: Consult order Sertraline HCl (Sertraline Hcl 25 Mg Tablet) 25 mg PO BEDTIME [facility] Last Admin: 11/05/21 20:20 Dose: 25 mg Documented by: Sodium Chloride (0.9 % Sodium Chloride Flush 3 Ml Syringe) 3 ml IVFLUSH QSHIFT [facility] Last Admin: 11/06/21 09:06 Dose: 3 ml Documented by: Home Medications Medication Instructions Recorded Confirmed Last Taken Type albuterol sulfate 90 mcg/actuation 2 puff INHALATION Q4-6H 06/14/21 11/05/21 09/06/21 History aerosol inhaler amiodarone 200 mg tablet 200 mg PO DAILY 06/14/21 11/05/21 09/06/21 History atorvastatin 40 mg tablet 40 mg PO DAILY 06/14/21 11/05/21 09/06/21 History hydrocodone 10 mg-acetaminophen 1 tab PO Q4-6H PRN 06/14/21 11/05/21 09/05/21 History 325 mg tablet sertraline 25 mg tablet 25 mg PO BEDTIME 06/14/21 11/05/21 09/05/21 History spironolactone 25 mg tablet 12.5 mg PO DAILY 06/14/21 11/05/21 09/06/21 History furosemide 40 mg tablet 1 tab PO BEDTIME PRN 11/05/21 11/05/21 Unknown History furosemide 40 mg tablet (Lasix) 40 mg PO DAILY 11/05/21 11/05/21 Unknown History losartan 50 mg tablet 50 mg PO DAILY 11/05/21 11/05/21 Unknown History Physical Exam Vital Signs: Vital Signs: Last Vital Signs Temp 97.8 F 11/06/21 07:31 Pulse 82 11/06/21 09:53 Resp 20 11/06/21 07:31 BP 117/91 H 11/06/21 07:31 Pulse Ox 100 11/06/21 07:31 BMI result Body Mass Index 36.0 GENERAL APPEARANCE: Short of breath. NECK: no carotid bruit, significantly elevated JVD up to angle of jaw. SKIN: no suspicious lesions, warm and dry. HEART: Systolic murmur left sternal border. LUNGS: clear to auscultation bilaterally. ABDOMEN: soft, nontender. Pulsatile liver. EXTREMITIES: 2+ edema up to mid thighs. PERIPHERAL PULSES: equal. NEUROLOGIC: No gross deficits, AAO X 3 Objective Labs and Meds Result diagrams: 11/06/21 06:02 11/06/21 06:02 Lab results: Laboratory Results - last 24 hr 11/05/21 11/05/21 11/05/21 15:49 15:49 15:49 WBC 10.0 RBC 4.82 Hgb 14.4 Hct 45.3 MCV 94.0 MCH 29.9 MCHC 31.8 RDW 20.4 H Plt Count 304 MPV 10.3 Immature Gran % (Auto) 0.3 Neut % (Auto) 73.8 H Lymph % (Auto) 15.9 L [place] % (Auto) 8.4 Eos % (Auto) 0.8 Baso % (Auto) 0.8 Lymph # (Auto) 1.6 [place] # (Auto) 0.8 Eos # (Auto) 0.1 Baso # (Auto) 0.1 Abs Immat Gran (auto) 0.03 Absolute Neuts (auto) 7.4 Absolute Nucleated RBC 0.000 Nucleated RBC % (auto) 0.0 Sodium 140 Potassium 3.8 Chloride 106 Carbon Dioxide 25 Anion Gap 13 BUN 15 Creatinine 0.96 Estim Creat Clear Calc 107.4 Estimated GFR > 60 Random Glucose 121 H Calcium 9.1 D Troponin I High Sens 22.8 B-Natriuretic Peptide 3102 H Urine Color Urine Appearance Urine pH Ur Specific [place] Urine Protein Urine Glucose (UA) Urine Ketones Urine Blood Urine Nitrite Ur Leukocyte Esterase Urine RBC Urine WBC Ur Squamous Epith Cells Urine Bacteria Hyaline Casts Urine Mucus COVID-19 ([facility]) COVID-19 Clin Com 11/05/21 11/05/21 11/05/21 15:55 17:09 17:32 WBC RBC Hgb Hct MCV MCH MCHC RDW Plt Count MPV Immature Gran % (Auto) Neut % (Auto) Lymph % (Auto) [place] % (Auto) Eos % (Auto) Baso % (Auto) Lymph # (Auto) [place] # (Auto) Eos # (Auto) Baso # (Auto) Abs Immat Gran (auto) Absolute Neuts (auto) Absolute Nucleated RBC Nucleated RBC % (auto) Sodium Potassium Chloride Carbon Dioxide Anion Gap BUN Creatinine Estim Creat Clear Calc Estimated GFR Random Glucose Calcium Troponin I High Sens 21.0 B-Natriuretic Peptide Urine Color ORANGE Urine Appearance CLEAR Urine pH 5.5 Ur Specific [place] >= 1.030 H Urine Protein 3+ H Urine Glucose (UA) 100 H Urine Ketones 5 Urine Blood NEG Urine Nitrite NEG Ur Leukocyte Esterase NEG Urine RBC 1-4 Urine WBC 1-4 Ur Squamous Epith Cells TRACE Urine Bacteria TRACE Hyaline Casts 15-29 Urine Mucus 2+ COVID-19 ([facility]) Negative COVID-19 Clin Com See Note 11/06/21 11/06/21 11/06/21 06:02 06:02 06:02 WBC 11.3 H RBC 5.00 Hgb 14.5 Hct 46.4 MCV 92.8 MCH 29.0 MCHC 31.3 RDW 20.6 H Plt Count 289 MPV 10.6 Immature Gran % (Auto) 0.4 Neut % (Auto) 76.6 H Lymph % (Auto) 9.6 L [place] % (Auto) 10.8 Eos % (Auto) 1.9 Baso % (Auto) 0.7 Lymph # (Auto) 1.1 L [place] # (Auto) 1.2 Eos # (Auto) 0.2 Baso # (Auto) 0.1 Abs Immat Gran (auto) 0.04 H Absolute Neuts (auto) 8.7 H Absolute Nucleated RBC 0.000 Nucleated RBC % (auto) 0.0 Sodium 139 Potassium 4.1 Chloride 105 Carbon Dioxide 27 Anion Gap 11 L BUN 12 Creatinine 0.92 Estim Creat Clear Calc 111.5 Estimated GFR > 60 Random Glucose 116 H Calcium 8.9 Troponin I High Sens B-Natriuretic Peptide 2662 H Urine Color Urine Appearance Urine pH Ur Specific [place] Urine Protein Urine Glucose (UA) Urine Ketones Urine Blood Urine Nitrite Ur Leukocyte Esterase Urine RBC Urine WBC Ur Squamous Epith Cells Urine Bacteria Hyaline Casts Urine Mucus COVID-19 ([facility]) COVID-19 Clin Com Imaging Radiologist's impression: Impressions Chest X-Ray 11/05/21 16:08 IMPRESSION: Stable enlargement of the cardiac silhouette. Assessment and Plan (1) Acute on chronic HFrEF (heart failure with reduced ejection fraction): Status: Acute Pleasant 51-year-old gentleman who is presenting with acute on chronic congestive heart failure. He has significant volume overloaded. He has been started on Lasix drip at 10 milligram/hour. He has nonsustained ventricular tachycardia on telemetry. He is already on amiodarone. He has an ICD. We should check electrolytes and replete them. No room on carvedilol to be increased. If he has more ectopy then we can try giving him some more amiodarone and his amiodarone can be changed to 200 mg twice a day in that situation. Continue the medications before. Please do not titrate beta-blockers. We will follow along with you. Thank you for allowing me to participate in the care of your patient. Please feel free to contact me if you have any questions. Procedures Date of Service Date of Service: 11/06/21
--- NOTE | 2021-11-06 10:41 | P.PNIM_ITS ---
Subjective Subjective Date of Service: 11/06/21 Review of Systems Follow up CHF Still feeling sob and swelling to his abd and legs All other systems are reviewed and are negative Physical Exam Vital Signs: Vital Signs: Last Vital Signs Temp 97.8 F 11/06/21 07:31 Pulse 82 11/06/21 09:53 Resp 20 11/06/21 07:31 BP 117/91 H 11/06/21 07:31 Pulse Ox 100 11/06/21 07:31 BMI result Body Mass Index 36.0 Appearing in no acute distress lung sounds are clear to auscultation heart regular rate rhythm, clear S1, S2 positive bowel sounds, abdomen is soft, nontender neuro patient is alert x3, no focal deficits +2-3 lower extremity edema, abdominal edema Objective Data Active Medications Albuterol Sulfate (Albuterol Sulfate 90 Mcg 8 Gm Inhaler) 2 puff INHALE Q4H [facility] Last Admin: 11/06/21 09:53 Dose: 2 puff Documented by: SAMUEL Amiodarone HCl (Amiodarone Hcl 200 Mg Tablet) 200 mg PO DAILY [facility] Last Admin: 11/06/21 09:06 Dose: 200 mg Documented by: GRANT Apixaban (Apixaban 5 Mg Tablet) 5 mg PO BID@0600,1800 [facility] Last Admin: 11/06/21 05:45 Dose: 5 mg Documented by: MOLINA Atorvastatin Calcium (Atorvastatin Calcium 40 Mg Tablet) 40 mg PO DAILY [facility] Last Admin: 11/06/21 09:06 Dose: 40 mg Documented by: GRANT Benzonatate (Benzonatate 100 Mg Capsule) 100 mg PO TID PRN PRN Reason: Cough Last Admin: 11/06/21 05:11 Dose: 100 mg Documented by: MOLINA Carvedilol (Carvedilol 3.125 Mg Tablet) 3.125 mg PO BID [facility]; Protocol Last Admin: 11/06/21 09:06 Dose: 3.125 mg Documented by: GRANT Furosemide 200 mg/ Sodium (Chloride) 100 mls @ 5 mls/hr IVCONT .Q20H [facility] Losartan Potassium (Losartan Potassium 50 Mg Tablet) 50 mg PO DAILY [facility]; Protocol Last Admin: 11/06/21 09:06 Dose: 50 mg Documented by: GRANT Ondansetron HCl (Ondansetron Hcl 4 Mg/2 Ml Vial) 4 mg IVPUSH Q8H PRN PRN Reason: Nausea and Vomiting Pharmacy Consult (Consult Rx Perform Med Rec) 1 each MISCELLANE ONCE PRN PRN Reason: Consult order Sertraline HCl (Sertraline Hcl 25 Mg Tablet) 25 mg PO BEDTIME [facility] Last Admin: 11/05/21 20:20 Dose: 25 mg Documented by: TUMASY Sodium Chloride (0.9 % Sodium Chloride Flush 3 Ml Syringe) 3 ml IVFLUSH QSHIFT [facility] Last Admin: 11/06/21 09:06 Dose: 3 ml Documented by: CHILDSC Labs CBC & Chem 7: 11/06/21 06:02 11/06/21 06:02 Labs: Laboratory Results - last 24 hr 11/05/21 11/05/21 11/05/21 15:49 15:49 15:49 MCV 94.0 MCH 29.9 MCHC 31.8 RDW 20.4 H Plt Count 304 MPV 10.3 Immature Gran % (Auto) 0.3 Neut % (Auto) 73.8 H Lymph % (Auto) 15.9 L [place] % (Auto) 8.4 Eos % (Auto) 0.8 Baso % (Auto) 0.8 Lymph # (Auto) 1.6 [place] # (Auto) 0.8 Eos # (Auto) 0.1 Baso # (Auto) 0.1 Abs Immat Gran (auto) 0.03 Absolute Neuts (auto) 7.4 Absolute Nucleated RBC 0.000 Nucleated RBC % (auto) 0.0 Anion Gap 13 Estim Creat Clear Calc 107.4 Estimated GFR > 60 Random Glucose 121 H Calcium 9.1 D Troponin I High Sens 22.8 B-Natriuretic Peptide 3102 H Urine Color Urine Appearance Urine pH Ur Specific [place] Urine Protein Urine Glucose (UA) Urine Ketones Urine Blood Urine Nitrite Ur Leukocyte Esterase Urine RBC Urine WBC Ur Squamous Epith Cells Urine Bacteria Hyaline Casts Urine Mucus COVID-19 ([facility]) COVID-19 Clin Com 11/05/21 11/05/21 11/05/21 15:55 17:09 17:32 MCV MCH MCHC RDW Plt Count MPV Immature Gran % (Auto) Neut % (Auto) Lymph % (Auto) [place] % (Auto) Eos % (Auto) Baso % (Auto) Lymph # (Auto) [place] # (Auto) Eos # (Auto) Baso # (Auto) Abs Immat Gran (auto) Absolute Neuts (auto) Absolute Nucleated RBC Nucleated RBC % (auto) Anion Gap Estim Creat Clear Calc Estimated GFR Random Glucose Calcium Troponin I High Sens 21.0 B-Natriuretic Peptide Urine Color ORANGE Urine Appearance CLEAR Urine pH 5.5 Ur Specific [place] >= 1.030 H Urine Protein 3+ H Urine Glucose (UA) 100 H Urine Ketones 5 Urine Blood NEG Urine Nitrite NEG Ur Leukocyte Esterase NEG Urine RBC 1-4 Urine WBC 1-4 Ur Squamous Epith Cells TRACE Urine Bacteria TRACE Hyaline Casts 15-29 Urine Mucus 2+ COVID-19 ([facility]) Negative COVID-19 Clin Com See Note 11/06/21 11/06/21 11/06/21 06:02 06:02 06:02 MCV 92.8 MCH 29.0 MCHC 31.3 RDW 20.6 H Plt Count 289 MPV 10.6 Immature Gran % (Auto) 0.4 Neut % (Auto) 76.6 H Lymph % (Auto) 9.6 L [place] % (Auto) 10.8 Eos % (Auto) 1.9 Baso % (Auto) 0.7 Lymph # (Auto) 1.1 L [place] # (Auto) 1.2 Eos # (Auto) 0.2 Baso # (Auto) 0.1 Abs Immat Gran (auto) 0.04 H Absolute Neuts (auto) 8.7 H Absolute Nucleated RBC 0.000 Nucleated RBC % (auto) 0.0 Anion Gap 11 L Estim Creat Clear Calc 111.5 Estimated GFR > 60 Random Glucose 116 H Calcium 8.9 Troponin I High Sens B-Natriuretic Peptide 2662 H Urine Color Urine Appearance Urine pH Ur Specific [place] Urine Protein Urine Glucose (UA) Urine Ketones Urine Blood Urine Nitrite Ur Leukocyte Esterase Urine RBC Urine WBC Ur Squamous Epith Cells Urine Bacteria Hyaline Casts Urine Mucus COVID-19 ([facility]) COVID-19 Clin Com Assessment and Plan (1) H/O: HTN (hypertension): Status: Acute (2) Acute on chronic HFrEF (heart failure with reduced ejection fraction): Status: Acute Assessment and Plan: This is a 51-year-old male with past medical history of CHF presents to the hospital with complaint of shortness of breath found to have CHF exacerbation as well as COPD exacerbation Acute on chronic diastolic heart failure with reduced ejection fraction Likely secondary to medication noncompliance Still with congestion start lasix drip 10mg/hr Cardiology following Follow intake and output closely, daily weights History of mobile mass attached ICD lead Continue Eliquis History ventricular tachycardia Continue amiodarone and Coreg COPD.? No exacerbation duo nebs if needed. Hypertension.? Stable blood pressure.? Continue losartan DVT prophylaxis with Karen Attending Dr. Sinha Quality Stroke Does the patient have a stroke diagnosis?: No VTE Prior VTE?: No VTE Risk Level:: Medical - moderate - high VTE Device Contraindication: Treatment Not Indicated VTE Drug Contraindication: N/A - Med Ordered
--- NOTE | 2021-11-06 11:45 | PC.NURSE ---
Per cardiology/ hospitalist pt Lasix Drip to be increased from 2mg/hr to 10mg/hr in a 200mg/100mL bag. dose increased on IV pump per order. when order changed in MAR unable to reflect increase in previous order. changed to new order and updated time to reflect accurate start. pt cont to with SOB and BLE +1 pitting edema. making good urine - clear/ pale yellow. using urinal and staff measuring output in chart. will cont to monitor and assess.
[2021-11-06 14:22] LABS: Magnesium 1.6 mg/dL (1.6-2.6)
[2021-11-06] MEDS: Sertraline HCL 25 MG TABLET PO (20:40)
[2021-11-07] VITALS (7 sets, daily range): BP systolic 96–119; BP diastolic 66–82; PULSE 82–104; RESP 18–20; TEMP 36.2–37.2; O2SAT 92–97
--- NOTE | 2021-11-07 | ECG_ITS ---
Test Reason : chest pain Blood Pressure : / mmHG Vent. Rate : 099 BPM Atrial Rate : 099 BPM P-R Int : 164 ms QRS Dur : 080 ms QT Int : 384 ms P-R-T Axes : 057 -09 151 degrees QTc Int : 492 ms Normal sinus rhythm Left atrial enlargement Septal infarct , age undetermined ST & T wave abnormality, consider lateral ischemia Abnormal ECG When compared to the previous EKG of No significant changes seen Referred By: Elizabeth Burnett Electronically Signed By:Macario Thacker
[2021-11-07] MEDS: Apixaban 5 MG TABLET PO ×2 (05:49→17:55)
[2021-11-07] MEDS: Furosemide 200 MG in 0.9 % Sodium Chloride 80 ML IVCONT ×2 (05:49→16:16)
[2021-11-07 06:44] LABS: Anion Gap 13 (12-20); Blood Urea Nitrogen 11 mg/dL (9-16); Calcium 8.8 mg/dL (8.4-10.2); Carbon Dioxide 31 mmol/L (22-29); Chloride 96 mmol/L (96-108); Creatinine Clr Calc Pharmacy 128.3; Estimated Glomerular Filt Rate > 60; Glucose Random 102 mg/dL (60-115); Sodium 137 mmol/L (135-145)
[2021-11-07 07:53] LABS: B Type Natriuretic Peptide 1543 pg/mL (<100)
[2021-11-07] MEDS: Albuterol Sulfate 90 MCG 8 GM INHALER 2 PUFF INHALE ×3 (08:18→19:39)
[2021-11-07] MEDS: Losartan Potassium 50 MG TABLET PO (08:36)
[2021-11-07] MEDS: Potassium Chloride ER 20 MEQ TAB.ER.PRT 40 MEQ PO (08:36)
[2021-11-07] MEDS: Amiodarone HCL 200 MG TABLET PO (08:37)
[2021-11-07] MEDS: carvediloL 3.125 MG TABLET PO (08:37)
[2021-11-07] MEDS: Atorvastatin Calcium 40 MG TABLET PO (08:37)
--- NOTE | 2021-11-07 10:13 | HO.PM.IMPN ---
Subjective Subjective Date of Service: 11/07/21 Review of Systems Follow up CHF breathing is better but legs are still swollen Denies chest pain, nausea vomiting, diarrhea All other systems are reviewed and are negative Physical Exam Vital Signs: Vital Signs: Last Vital Signs Temp 97.7 F 11/07/21 08:00 Pulse 97 11/07/21 08:00 Resp 20 11/07/21 08:00 BP 119/81 11/07/21 08:00 Pulse Ox 95 11/07/21 08:00 BMI result Body Mass Index 36.0 Appearing in no acute distress lung sounds are clear to auscultation heart regular rate rhythm, clear S1, S2. +2 to 3 lower extremity edema positive bowel sounds, abdomen is soft, nontender neuro patient is alert x3, no focal deficits Objective Data Active Medications Hydrocodone Bitart/Acetaminophen (Hydrocodone Bit/Acetam 10/325 Tablet) 1 tab PO Q4H PRN PRN Reason: Pain, Mild (Pain Scale 1-3) Last Admin: 11/07/21 05:58 Dose: 1 tab Documented by: TATE Albuterol Sulfate (Albuterol Sulfate 90 Mcg 8 Gm Inhaler) 2 puff INHALE RQ4H [facility] Last Admin: 11/07/21 08:18 Dose: 2 puff Documented by: BLADEMARCUS Amiodarone HCl (Amiodarone Hcl 200 Mg Tablet) 200 mg PO DAILY [facility] Last Admin: 11/07/21 08:37 Dose: 200 mg Documented by: DERIAN Apixaban (Apixaban 5 Mg Tablet) 5 mg PO BID@0600,1800 [facility] Last Admin: 11/07/21 05:49 Dose: 5 mg Documented by: TATE Atorvastatin Calcium (Atorvastatin Calcium 40 Mg Tablet) 40 mg PO DAILY [facility] Last Admin: 11/07/21 08:37 Dose: 40 mg Documented by: DERIAN Benzonatate (Benzonatate 100 Mg Capsule) 100 mg PO TID PRN PRN Reason: Cough Last Admin: 11/06/21 05:11 Dose: 100 mg Documented by: ODCHAPISM Carvedilol (Carvedilol 3.125 Mg Tablet) 3.125 mg PO BID [facility]; Protocol Last Admin: 11/07/21 08:37 Dose: 3.125 mg Documented by: DERIAN Furosemide 200 mg/ Sodium (Chloride) 100 mls @ 5 mls/hr IVCONT .Q20H [facility] Stop: 11/07/21 21:30 Last Admin: 11/07/21 05:49 Dose: 10 mg/hr, 5 mls/hr Documented by: TATE Furosemide 200 mg/ Sodium (Chloride) 100 mls @ 5 mls/hr IVCONT .Q20H [facility] Losartan Potassium (Losartan Potassium 50 Mg Tablet) 50 mg PO DAILY [facility]; Protocol Last Admin: 11/07/21 08:36 Dose: 50 mg Documented by: DERIAN Ondansetron HCl (Ondansetron Hcl 4 Mg/2 Ml Vial) 4 mg IVPUSH Q8H PRN PRN Reason: Nausea and Vomiting Pharmacy Consult (Consult Rx Perform Med Rec) 1 each MISCELLANE ONCE PRN PRN Reason: Consult order Potassium Chloride (Potassium Chloride Er 20 Meq Tab.Er.Prt) 40 meq PO BID [facility] Sertraline HCl (Sertraline Hcl 25 Mg Tablet) 25 mg PO BEDTIME [facility] Last Admin: 11/06/21 20:40 Dose: 25 mg Documented by: TATE Sodium Chloride (0.9 % Sodium Chloride Flush 3 Ml Syringe) 3 ml IVFLUSH QSHIFT [facility] Last Admin: 11/07/21 08:35 Dose: Not Given Documented by: DERIAN Non-Admin Reason: IV Running Labs CBC & Chem 7: 11/06/21 06:02 11/07/21 06:05 Labs: Laboratory Results - last 24 hr 11/06/21 11/07/21 11/07/21 06:02 06:05 06:05 Anion Gap 13 Estim Creat Clear Calc 128.3 Estimated GFR > 60 Random Glucose 102 Calcium 8.8 Magnesium 1.6 B-Natriuretic Peptide 1543 H Assessment and Plan (1) H/O: HTN (hypertension): Status: Acute (2) Acute on chronic HFrEF (heart failure with reduced ejection fraction): Status: Acute (3) Hypokalemia: Status: Acute Assessment and Plan: This is a 51-year-old male with past medical history of CHF presents to the hospital with complaint of shortness of breath found to have CHF exacerbation as well as COPD exacerbation Acute on chronic diastolic heart failure with reduced ejection fraction Likely secondary to medication noncompliance Still with congestion but breathing is better neg 12 L, will decrease Lasix to 5mg/hr Cardiology following Follow intake and output closely, daily weights Mariusz wraps to legs Hypokalemia Secondary to lasix drip replete follow BMP History of mobile mass attached ICD lead Continue Eliquis History ventricular tachycardia Continue amiodarone and Coreg COPD.? No exacerbation duo nebs if needed. Hypertension.? Stable blood pressure.? Continue losartan DVT prophylaxis with Karen Attending Dr. Sinha Quality Stroke Does the patient have a stroke diagnosis?: No VTE Prior VTE?: No VTE Risk Level:: Medical - moderate - high VTE Device Contraindication: Treatment Not Indicated VTE Drug Contraindication: N/A - Med Ordered
--- NOTE | 2021-11-07 13:53 | P.PNCA_ITS ---
Subjective Subjective Date of Service: 11/07/21 Interval history: 11 L negative. Still short of breath and volume overloaded. Physical Exam Vital Signs: Last Vital Signs Temp 97.2 F 11/07/21 12:00 Pulse 99 11/07/21 12:00 Resp 20 11/07/21 12:00 BP 99/71 11/07/21 12:00 Pulse Ox 95 11/07/21 12:00 BMI result Body Mass Index 36.0 GENERAL APPEARANCE:? Short of breath. NECK: no carotid bruit, significantly elevated JVD up to angle of jaw. SKIN: no suspicious lesions, warm and dry. HEART:? Systolic murmur left sternal border. LUNGS: clear to auscultation bilaterally. ABDOMEN: soft, nontender.? Pulsatile liver.? EXTREMITIES:? 2+ edema up to mid thighs. PERIPHERAL PULSES: equal. NEUROLOGIC: No gross deficits, AAO X 3 Objective Labs and Meds Result diagrams: 11/06/21 06:02 11/07/21 06:05 Lab results: Laboratory Results - last 24 hr 11/06/21 11/07/21 11/07/21 06:02 06:05 06:05 Sodium 137 Potassium 3.0 L D Chloride 96 Carbon Dioxide 31 H Anion Gap 13 BUN 11 Creatinine 0.80 Estim Creat Clear Calc 128.3 Estimated GFR > 60 Random Glucose 102 Calcium 8.8 Magnesium 1.6 B-Natriuretic Peptide 1543 H Progress Note: A&P Assessment and plan (1) Acute on chronic HFrEF (heart failure with reduced ejection fraction): Status: Acute (2) NSVT (nonsustained ventricular tachycardia): Status: Acute Assessment and Plan: Pleasant 49-year-old gentleman with severely reduced ejection fraction and RV failure. He is here with significant volume overload and clinical heart failure. Was started on Lasix drip and was 11 L negative today. I think we can decrease the Lasix to 5 milligram/hour. Monitor electrolytes closely. Potassium was low today. Please also monitor magnesium level has hypomagnesemia lead to hypokalemia. Same dose of beta-fernanda and the medications right now. He had episodes of nonsustained VT yesterday. I think electrolytes need to be monitor closely. If this is recurrent then amiodarone can be increased to 200 mg twice a day. We will follow along with you. Fall Risk Details Current Medications: Current Medications Hydrocodone Bitart/Acetaminophen (Hydrocodone Bit/Acetam 10/325 Tablet) 1 tab PO Q4H PRN PRN Reason: Pain, Mild (Pain Scale 1-3) Last Admin: 11/07/21 11:00 Dose: 1 tab Documented by: Albuterol Sulfate (Albuterol Sulfate 90 Mcg 8 Gm Inhaler) 2 puff INHALE RQ4H [facility] Last Admin: 11/07/21 11:51 Dose: Not Given Documented by: Amiodarone HCl (Amiodarone Hcl 200 Mg Tablet) 200 mg PO DAILY [facility] Last Admin: 11/07/21 08:37 Dose: 200 mg Documented by: Apixaban (Apixaban 5 Mg Tablet) 5 mg PO BID@0600,1800 [facility] Last Admin: 11/07/21 05:49 Dose: 5 mg Documented by: Atorvastatin Calcium (Atorvastatin Calcium 40 Mg Tablet) 40 mg PO DAILY [facility] Last Admin: 11/07/21 08:37 Dose: 40 mg Documented by: Benzonatate (Benzonatate 100 Mg Capsule) 100 mg PO TID PRN PRN Reason: Cough Last Admin: 11/06/21 05:11 Dose: 100 mg Documented by: Carvedilol (Carvedilol 3.125 Mg Tablet) 3.125 mg PO BID [facility]; Protocol Last Admin: 11/07/21 08:37 Dose: 3.125 mg Documented by: Furosemide 200 mg/ Sodium (Chloride) 100 mls @ 5 mls/hr IVCONT .Q20H [facility] Stop: 11/07/21 21:30 Last Admin: 11/07/21 05:49 Dose: 10 mg/hr, 5 mls/hr Documented by: Furosemide 200 mg/ Sodium (Chloride) 100 mls @ 5 mls/hr IVCONT .Q20H [facility] Losartan Potassium (Losartan Potassium 50 Mg Tablet) 50 mg PO DAILY [facility]; Protocol Last Admin: 11/07/21 08:36 Dose: 50 mg Documented by: Ondansetron HCl (Ondansetron Hcl 4 Mg/2 Ml Vial) 4 mg IVPUSH Q8H PRN PRN Reason: Nausea and Vomiting Pharmacy Consult (Consult Rx Perform Med Rec) 1 each MISCELLANE ONCE PRN PRN Reason: Consult order Potassium Chloride (Potassium Chloride Er 20 Meq Tab.Er.Prt) 40 meq PO BID [facility] Sertraline HCl (Sertraline Hcl 25 Mg Tablet) 25 mg PO BEDTIME [facility] Last Admin: 11/06/21 20:40 Dose: 25 mg Documented by: Sodium Chloride (0.9 % Sodium Chloride Flush 3 Ml Syringe) 3 ml IVFLUSH QSHIFT [facility] Last Admin: 11/07/21 08:35 Dose: Not Given Documented by: Time Spent With Patient Time: Total time spent is greater than 50% in coordination of care (as documented) at patient's floor/unit and/or counseling patient: Time with patient: 25 - 35 minutes Progress Note: Quality Stroke Does the patient have a stroke diagnosis?: No Procedures Date of Service Date of Service: 11/07/21
--- NOTE | 2021-11-07 19:00 | PC.NURSE ---
1800 c/o left side pain that radiates to chest. Elizabeth Moulton TRANSFER ENGINEER notified. EKG and labs ordered. Has freq non prod cough.
[2021-11-07 19:08] LABS: Troponin-I High Sensitivity 12.3 ng/L (<3.5-35.0)
--- NOTE | 2021-11-07 22:11 | PC.NURSE ---
Upon assessment, pt very anxious, expressing the need to leave Now AMA. Sat down with the patient for 15 minutes and explained that leaving would not be safe for him in his current state. Patient expressed that he understands his condition and situation but Cannot remain here for even another hour. Explained medication, treatments and disease process to patient as well as potential consequences if he should leave. Patient still expressing need to leave AMA. MD made aware. MD tied up with acutely ill patients and unable to come to floor to speak to or assess patient at this time. Nursing Remote Control Mirror Installer also made aware, also unable to come speak to patient. patient waited about 30 minutes until he began to get dressed. Patient noted to be SOB with exertion. Explained to patient again that there was concern for his health and safety with him leaving AMA. Patient again states understanding of his condition and still wants to leave AMA. Another nurse to the bedside to speak with patient, who still states he understands and wants to leave. MD and nursing pile driving supervisor made aware again of patients need to leave immediately. Patient waited another 10 minutes then came out to nurses station, fully dressed with tele monitor removed, IV removed by RN and patient states his ride will be here in 10 minutes. Nursing pile driving supervisor called who states patient is not able to leave on foot r/t weather and temperature. Patient states ride will be here shortly. Cindy brought patient down to main [facility]. Upon returning to the floor the cindy states that when they got to the lobby the patient stated he had his own car, got into his car, and left.
--- NOTE | 2021-11-07 22:33 | PM.EVENT ---
Event Note Date of Service: 11/07/21 Event Note: against medical advise note: RN mentioned that patient wanted to leave against medical advice. I told her to ask the patient to wait as Iwas with a different patient and will be either shortly. RN mentioned the he spoke to the patient in detail about the risks of leaving against medical advice which not only to worsening current condition may even lead to ; PEr RN patient is completely with it. Patient signed the AMA form and left without waiting for me.
== END 2021-11-07 22:30 | disposition left against medical advice (07) | DRG 291 ==
LOC: HO.ED 17:18 → HO.EDOVER 18:01 → HO.IMC 23:03
PROVIDERS: Nurse Practitioner Family; Admitting Provider Nurse Practitioner Acute Care; Emergency Provider Emergency Medicine; PCP Internal Medicine; Visit Provider Nurse Practitioner Acute Care
DX: I11.0 Hypertensive heart disease with heart failure (principal); I50.23 Acute on chronic systolic (congestive) heart failure; J44.1 Chronic obstructive pulmonary disease with (acute) exacerbation; I47.2 Ventricular tachycardia; E87.6 Hypokalemia; Z91.14 Patient's other noncompliance with medication regimen; Z20.822 Contact with and (suspected) exposure to COVID-19; F17.210 Nicotine dependence, cigarettes, uncomplicated; Z71.6 Tobacco abuse counseling; Z95.810 Presence of automatic (implantable) cardiac defibrillator; Z79.01 Long term (current) use of anticoagulants; Z79.899 Other long term (current) drug therapy
CPT/HCPCS: 36415; 71046; 80048; 81001; 81003; 83735; 83880; 84484; 85025; 87635; 93005; 94640; 99285; 99499; J1940

== ENCOUNTER 2021-11-14 13:17 | Outpatient (REF) | payer MEDICARE, MEDICAID, SELFPAY ==
[2021-11-14 14:59] LABS: Anion Gap 13 (12-20); Blood Urea Nitrogen 15 mg/dL (9-16); Calcium 8.6 mg/dL (8.4-10.2); Carbon Dioxide 31 mmol/L (22-29); Chloride 94 mmol/L (96-108); Estimated Glomerular Filt Rate > 60; Glucose Random 106 mg/dL (60-115); Potassium 3.4 mmol/L (3.3-5.1); Sodium 135 mmol/L (135-145)
[2021-11-14 15:06] LABS: B Type Natriuretic Peptide 1418 pg/mL (<100)
== END 2021-11-14 13:18 | disposition home or self-care (01) ==
LOC: HO.LAB 13:17
PROVIDERS: PCP Internal Medicine; Referring Provider Internal Medicine; Visit Provider Nurse Practitioner Family
DX: I42.8 Other cardiomyopathies (principal); I47.2 Ventricular tachycardia; I11.0 Hypertensive heart disease with heart failure; I50.22 Chronic systolic (congestive) heart failure; I50.21 Acute systolic (congestive) heart failure; Z98.890 Other specified postprocedural states; Z95.810 Presence of automatic (implantable) cardiac defibrillator; Z79.899 Other long term (current) drug therapy
CPT/HCPCS: 36415; 80048; 83880; 99212

== ENCOUNTER → 2022-01-24 14:04 | Outpatient (BNVA) | payer MEDICARE, MEDICAID, SELFPAY | PROVIDERS: PCP Internal Medicine; Referring Provider Internal Medicine; Visit Provider Nurse Practitioner Family | DX: I11.0 Hypertensive heart disease with heart failure (principal); I50.22 Chronic systolic (congestive) heart failure; I42.8 Other cardiomyopathies; I47.1 Supraventricular tachycardia; Z98.890 Other specified postprocedural states; Z95.810 Presence of automatic (implantable) cardiac defibrillator | CPT/HCPCS: 99212 ==

== ENCOUNTER 2022-02-04 11:06 | Outpatient (REF) | payer MEDICARE, MEDICAID, SELFPAY ==
[2022-02-04 12:38] LABS: B Type Natriuretic Peptide 908 pg/mL (<100)
[2022-02-04 13:29] LABS: Alanine Aminotransferase 19 U/L (0-40); Albumin Level 3.8 g/dL (3.5-5.0); Alkaline Phosphatase 118 U/L (39-117); Anion Gap 15 (12-20); Aspartate Amino Transferase 19 U/L (5-37); Bilirubin Total 1.3 mg/dL (0.0-1.0); Blood Urea Nitrogen 23 mg/dL (9-16); Calcium 9.7 mg/dL (8.4-10.2); Carbon Dioxide 42 mmol/L (22-29); Chloride 80 mmol/L (96-108); Estimated Glomerular Filt Rate 53; Glucose Random 95 mg/dL (60-115); Potassium 3.7 mmol/L (3.3-5.1); Sodium 133 mmol/L (135-145); Total Protein 7.7 g/dL (6.5-8.0)
== END 2022-02-04 11:07 | disposition home or self-care (01) ==
LOC: HO.LAB 11:06
PROVIDERS: PCP Internal Medicine; Visit Provider Nurse Practitioner Family
DX: I50.23 Acute on chronic systolic (congestive) heart failure (principal); I42.8 Other cardiomyopathies; I47.2 Ventricular tachycardia; I10 Essential (primary) hypertension; Z95.810 Presence of automatic (implantable) cardiac defibrillator; Z79.899 Other long term (current) drug therapy; Z98.890 Other specified postprocedural states
CPT/HCPCS: 36415; 80053; 83880; 99212

== ENCOUNTER 2022-02-08 11:32 | Outpatient (REF) | payer MEDICARE, MEDICAID, SELFPAY ==
[2022-02-08 12:36] LABS: Anion Gap 12 (12-20); Blood Urea Nitrogen 20 mg/dL (9-16); Calcium 9.9 mg/dL (8.4-10.2); Carbon Dioxide 34 mmol/L (22-29); Chloride 91 mmol/L (96-108); Estimated Glomerular Filt Rate > 60; Glucose Random 65 mg/dL (60-115); Potassium 3.8 mmol/L (3.3-5.1); Sodium 133 mmol/L (135-145)
[2022-02-08 12:43] LABS: B Type Natriuretic Peptide 1285 pg/mL (<100)
== END 2022-02-08 11:33 | disposition home or self-care (01) ==
LOC: HO.LAB 11:32
PROVIDERS: PCP Internal Medicine; Visit Provider Nurse Practitioner Family
DX: I50.23 Acute on chronic systolic (congestive) heart failure (principal)
CPT/HCPCS: 36415; 80048; 83880

== ENCOUNTER 2022-02-18 12:57 | Outpatient (REF) | payer MEDICARE, MEDICAID, SELFPAY ==
[2022-02-18 15:18] LABS: Anion Gap 13 (12-20); Blood Urea Nitrogen 29 mg/dL (9-16); Calcium 9.3 mg/dL (8.4-10.2); Carbon Dioxide 36 mmol/L (22-29); Chloride 88 mmol/L (96-108); Estimated Glomerular Filt Rate > 60; Glucose Random 91 mg/dL (60-115); Potassium 3.4 mmol/L (3.3-5.1); Sodium 134 mmol/L (135-145)
[2022-02-18 15:25] LABS: B Type Natriuretic Peptide 399 pg/mL (<100)
== END 2022-02-18 12:58 | disposition home or self-care (01) ==
LOC: HO.LAB 12:57
PROVIDERS: PCP Internal Medicine; Referring Provider Internal Medicine; Visit Provider Nurse Practitioner Family
DX: I11.0 Hypertensive heart disease with heart failure (principal); I50.23 Acute on chronic systolic (congestive) heart failure; I42.8 Other cardiomyopathies; I47.2 Ventricular tachycardia; F17.200 Nicotine dependence, unspecified, uncomplicated; Z79.899 Other long term (current) drug therapy; Z98.890 Other specified postprocedural states; Z95.810 Presence of automatic (implantable) cardiac defibrillator; Z71.6 Tobacco abuse counseling
CPT/HCPCS: 36415; 80048; 83880; 99212

== ENCOUNTER → 2022-03-05 12:57 | Outpatient (BNVA) | payer MEDICARE, MEDICAID, SELFPAY | PROVIDERS: PCP Internal Medicine; Referring Provider Internal Medicine; Visit Provider Internal Medicine | DX: I50.42 Chronic combined systolic (congestive) and diastolic (congestive) heart failure (principal); I49.01 Ventricular fibrillation; I63.9 Cerebral infarction, unspecified; Z51.81 Encounter for therapeutic drug level monitoring; Z79.01 Long term (current) use of anticoagulants | CPT/HCPCS: 93005; 99212 ==

== ENCOUNTER 2022-03-23 16:44 | Inpatient (IN) | payer MEDICARE, MEDICAID, SELFPAY ==
--- NOTE | ~2022-03-23 | XR_ITS ---
EXAMINATION: XR CHEST CLINICAL INFORMATION: Shortness of breath and chest pain COMPARISON: 11/05/2021 TECHNIQUE: 2 views of the chest were obtained. FINDINGS: Moderate cardiomegaly. Pacer device stable and intact. Mild perirectal thickening and cephalization of pulmonary vasculature with small pleural effusions most consistent mild CHF. XR/XR chest 2V IMPRESSION: Mild CHF.
--- NOTE | ~2022-03-23 | US_ITS ---
EXAMINATION: US VENOUS ULTRASOUND WITH DOPPLER LOWER EXTREMITY, BILATERAL CLINICAL INFORMATION: Lower extremity swelling COMPARISON: None TECHNIQUE: Ultrasound of the deep veins is performed from the hip to the calf with compression sonography and color and pulse Doppler assessment. Spectral analysis with color-flow imaging is performed. FINDINGS: RIGHT: There is normal venous compression and respiratory variation and augmented flow. The visualized common femoral vein, superficial femoral vein, profunda femoral vein, popliteal vein, and the trifurcation region shows no evidence of deep venous thrombosis. There is no significant popliteal fossa cyst. LEFT: There is normal venous compression and respiratory variation and augmented flow. The visualized common femoral vein, superficial femoral vein, profunda femoral vein, popliteal vein, and the trifurcation region shows no evidence of deep venous thrombosis. There is no significant popliteal fossa cyst. If the patient's symptoms persist, followup ultrasound in 5 days 7 days might be of value to exclude proximal propagation from a non-visualized calf vein. US/US venous duplex LE BI IMPRESSION: No DVT demonstrated in the bilateral lower extremities.
[2022-03-23 16:47] VITALS: BP 134/97; PULSE 111; RESP 26; TEMP 36; O2SAT 97; BMI 31.9
--- NOTE | 2022-03-23 17:02 | ECG_ITS ---
Test Reason : CHEST PAIN Blood Pressure : / mmHG Vent. Rate : 112 BPM Atrial Rate : 112 BPM P-R Int : 154 ms QRS Dur : 082 ms QT Int : 346 ms P-R-T Axes : 067 -28 089 degrees QTc Int : 472 ms Sinus tachycardia Possible Left atrial enlargement Septal infarct (cited on or before 05-NOV-2021) ST & T wave abnormality, consider lateral ischemia Abnormal ECG When compared with ECG of 07-NOV-2021 19:16, Nonspecific T wave abnormality no longer evident in Inferior leads Referred By: Sil Max Electronically Signed By:DEREK COOK MD
--- NOTE | 2022-03-23 17:05 | ED.GENADULT ---
HPI - General Adult General Chief complaint: Dyspnea Stated complaint: chest pain/leg swelling Time Seen by Provider: 03/23/22 17:01 Source: patient Mode of arrival: ambulatory Limitations: no limitations History of Present Illness HPI narrative: Patient is a 52 year old male presenting to the emergency department today with increased shortness of breath and intermittent chest pain. Patient states that he has a history of CHF and he follows with Dr. Andre. Patient denies any dizziness, lightheadedness, abdominal pain, nausea, vomiting, fever, chills, blurry vision, double vision, loss of vision, back pain, night sweats, pain with urination, increased urinary frequency, increased urinary urgency, blood in his urine or stool, syncope or a near syncopal episode, recent trauma or falls, bowel incontinence, bladder incontinence, bowel retention, bladder retention, or any other complaints at this time. ? Onset (ago): hour(s) Radiation: non-radiation Severity: mild Severity scale (1-10): 3 Quality: dull Pain Consistency: intermittent Relieving factors: none Exacerbating factors: none Associated symptoms: shortness of breath Treatments prior to arrival: none Related Data Home Medications Medication Instructions Recorded Confirmed albuterol sulfate 90 mcg/actuation 2 puff INHALATION Q4-6H 06/14/21 03/05/22 aerosol inhaler atorvastatin 40 mg tablet 40 mg PO DAILY 06/14/21 03/05/22 hydrocodone 10 mg-acetaminophen 1 tab PO Q4-6H PRN 06/14/21 03/05/22 325 mg tablet sertraline 25 mg tablet 25 mg PO BEDTIME 06/14/21 03/05/22 losartan 50 mg tablet 50 mg PO DAILY 11/05/21 03/05/22 cyclobenzaprine 10 mg tablet 10 mg PO TID 01/25/22 03/05/22 metolazone 2.5 mg tablet 2.5 mg PO QAM PRN 02/04/22 03/05/22 torsemide 20 mg tablet 60 mg PO BID tab 02/04/22 03/05/22 Previous Rx's Medication Instructions Recorded apixaban 5 mg tablet (Eliquis) 5 mg PO BID@0600,1800 #60 tab 06/18/21 carvedilol 3.125 mg tablet (Coreg) 3.125 mg PO BID #60 tab 07/19/21 spironolactone 50 mg tablet 50 mg PO DAILY #30 tab 02/15/22 dapagliflozin 10 mg tablet 10 mg PO DAILY #30 tab 02/22/22 ([facility]) amiodarone 200 mg tablet 200 mg PO DAILY #30 tab 03/21/22 Allergies Allergy/AdvReac Type Severity Reaction Status Date / Time sacubitril [From Entresto] AdvReac Rash Verified 03/05/22 13:12 valsartan [From Entresto] AdvReac Rash Verified 03/05/22 13:12 Review of Systems Constitutional: Constitutional: Reports no additional constitutional complaints, Denies chills, Denies fever(s) and Denies night sweats Eyes: Eyes: Reports no additional eye complaints, Denies blurry vision, Denies change in vision, Denies diplopia, Denies eye discharge, Denies loss of vision and Denies eye pain ENT: Denies dizziness Cardiovascular: Cardiovascular: Reports no additional cardiovascular complaints, Reports chest pain, Denies lightheadedness, Denies Loss of Consciousness and Reports dyspnea Respiratory: Respiratory: Reports no additional respiratory complaints and Reports dyspnea Gastrointestinal: Gastrointestinal: Reports no additional gastrointestinal complaints, Denies abdominal pain, Denies melena, Denies hematochezia, Denies change in bowel habits and Denies change in stool character Genitourinary: Genitourinary: Reports no additional male genitourinary complaints, Denies hematuria, Denies oliguria, Denies difficulty urinating, Denies dysuria, Denies urinary frequency, Denies urinary hesitancy, Denies urinary incontinence and Denies urinary urgency Musculoskeletal: Musculoskeletal: Reports no additional musculoskeletal complaints, Denies numbness and Denies tingling Comments: swelling to the bilateral lower legs Neurologic: Denies dizziness, Denies loss of vision, Denies numbness and Denies tingling Psychiatric: Psychiatric: Reports no additional psychiatric complaints Endocrine: Endocrine: Reports no additional endocrine complaints Hematologic/Lymphatic: Hematologic/Lymphatic: Reports no additional hematologic/lymphatic complaints Allergic/Immunologic: Allergic/Immunologic: Reports no additional allergic/immunologic complaints PMFSH Past Medical History Attestation statement: The following information was validated with the patient. Source: old records reviewed Medical History Acute on chronic systolic heart failure Artificial cardiac pacemaker Back injuries Cardiomyopathy CVA (cerebral vascular accident) HTN (hypertension) ICD (implantable cardioverter-defibrillator) in place NSVT (nonsustained ventricular tachycardia) Surgical History Hx of cardiac cath (~08/2015) Family History Family History Father Prostate cancer Mother No problems noted. Social History Social History Household Members: None Housing: House Do you presently have visiting nurse or other home services: No Alcohol intake: former Patient Tobacco Use Status: Current everyday Tobacco user Tobacco use type: Cigarette Cigarettes Per Day: 5 Advance Directives: No Advance Directives Information Provided: No service: No Current occupational status: disabled Physical Exam ED Vital Signs: Vital Signs - 24 hr 03/23/22 16:47 03/23/22 18:05 03/23/22 19:36 Temperature 96.8 F 97.9 F 97.8 F Pulse Rate 111 H 104 H 104 H Respiratory Rate 26 H 18 16 Blood Pressure 134/97 H 119/83 114/78 Pulse Oximetry 97 99 94 BMI result Body Mass Index 31.9 Const General: cooperative, no acute distress, alert and awake Nutritional Appearance: well nourished Orientation/consciousness: patient oriented x3 Limitations: no limitations HENMT Head: Yes normal to inspection and Yes atraumatic Ears: hearing grossly normal bilaterally and external ears normal General nose exam: Normal external nose present, no nasal discharge noted and no epistaxis Face and sinus: Yes normal facial exam, No abrasion and No laceration Mouth: Normal oral and palatal mucosa present, no drooling and no muffled voice Eyes General: appearance normal, both eyes and all related structures Periorbital: periorbital findings normal Eyelids: Yes eyelids normal Conjunctivae: conjunctivae normal Pupils: Equal, round and reactive pupils present EOM: EOMs intact bilaterally Neck Neck: Yes normal visual inspection, Yes full ROM and Yes no lymphadenopathy Chest Chest palpation & inspection: normal inspection of the chest Resp Effort & Inspection: normal respiratory effort and able to speak in complete sentences Auscultation: clear to auscultation bilaterally Cardio Rate: regular rate Rhythm: regular rhythm GI Inspection: Yes normal to inspection Neuro General: patient oriented x3 and moves all extremities Cranial nerves: Yes Equal, round and reactive pupils present Cognition (Neuro): normal cognition Motor exam (neuro): 5/5 motor strength present throughout Sensory Exam: Normal double simultaneous stimulation for sensation Coordination: [id number] test normal Extrem Other: mild swelling to the bilateral lower extremities General: Yes normal to inspection, Yes full ROM and Yes capillary refill normal Psych Appearance: grossly normal Mental Status: mental status grossly normal Affect: normal affect Attitude: cooperative Thought process: Normal thought process present Thought content: Normal thought content present Insight: Good insight present (Psych) Medical Decision Making MDM Narrative Medical decision making narrative: Patient is a 52 year old male presenting to the emergency department today with increased shortness of breath and intermittent chest pain. Patient's physical exam showed mild bilateral lower leg swelling but was otherwise unremarkable. Patient's blood work showed an elevated BNP of 2518 but was otherwise unremarkable. Patient's inital troponin was 10.1, his follow up was 9.0. Patient's EKG was unremarkable and was consistent with his previous. Patient's chest x-ray showed mild CHF. I spoke to Dr. Collado, the health and wellness coordinator rubbish collection supervisor, who agreed with admission to the hospitalist service. I spoke to Dr. Greenwood who agreed to hospital admission. I explained my physical exam findings as well as all test results to the patient. I answered all questions asked by the patient. Patient received IV Morphine and IV lasix which he stated helped his symptoms significantly. Patient verbalized agreement and understanding with this treatment plan and admission. Differential Diagnosis Differential Diagnosis: CHF exacerbation Medical Records Medical records reviewed: Yes I reviewed the patient's medical records. Lab Data Lab results reviewed: Yes I reviewed the patient's lab results. Result diagrams: 03/23/22 17:18 03/23/22 17:18 Labs: Lab Results 03/23/22 03/23/22 03/23/22 Range/Units 17:18 17:18 17:18 WBC 8.0 (4.8-10.8) X10*3/uL RBC 4.51 L (4.60-5.80) X10*6/uL Hgb 13.4 L (14.0-18.0) g/dl Hct 42.5 (42.0-52.0) % MCV 94.2 (80.0-98.0) fL MCH 29.7 (27.0-33.0) pg MCHC 31.5 (31.0-36.0) g/dl RDW 16.8 H (11.0-16.0) % Plt Count 288 (160-400) X10*3/uL MPV 9.4 (9.4-12.4) fL Immature Gran % (Auto) 0.4 (0.0-0.4) % Neut % (Auto) 63.8 (45-73) % Lymph % (Auto) 26.0 (20-40) % Gaston % (Auto) 6.0 (2-11) % Eos % (Auto) 2.9 (0-4) % Baso % (Auto) 0.9 (0-2) % Lymph # (Auto) 2.1 (1.2-4.9) X10*3/uL Gaston # (Auto) 0.5 (0.1-1.2) X10*3/uL Eos # (Auto) 0.2 (0.0-0.4) X10*3/uL Baso # (Auto) 0.1 (0.0-0.2) X10*3/uL Abs Immat Gran (auto) 0.03 (0.00-0.03) X10*3/uL Absolute Neuts (auto) 5.1 (2.0-8.3) x10*3/uL Absolute Nucleated RBC 0.000 (0.0-0.012) X10*3/uL Nucleated RBC % (auto) 0.0 (0.0-0.2) /100WBC Sodium 138 (135-145) mmol/L Potassium 5.0 D (3.3-5.1) mmol/L Chloride 104 (96-108) mmol/L Carbon Dioxide 24 (22-29) mmol/L Anion Gap 15 (12-20) BUN 14 D (9-16) mg/dL Creatinine 0.89 (0.5-1.4) mg/dL Estim Creat Clear Calc 107.4 Estimated GFR > 60 Random Glucose 108 (60-115) mg/dL Calcium 9.3 (8.4-10.2) mg/dL Magnesium 2.0 (1.6-2.6) mg/dL Total Bilirubin 1.0 (0.0-1.0) mg/dL AST 15 (5-37) U/L ALT 9 (0-40) U/L Alkaline Phosphatase 112 (39-117) U/L Troponin I High Sens (<3.5-35.0) ng/L B-Natriuretic Peptide 2518 H (<100) pg/mL Total Protein 7.7 (6.5-8.0) g/dL Albumin 4.0 (3.5-5.0) g/dL 03/23/22 03/23/22 Range/Units 17:18 19:57 WBC (4.8-10.8) X10*3/uL RBC (4.60-5.80) X10*6/uL Hgb (14.0-18.0) g/dl Hct (42.0-52.0) % MCV (80.0-98.0) fL MCH (27.0-33.0) pg MCHC (31.0-36.0) g/dl RDW (11.0-16.0) % Plt Count (160-400) X10*3/uL MPV (9.4-12.4) fL Immature Gran % (Auto) (0.0-0.4) % Neut % (Auto) (45-73) % Lymph % (Auto) (20-40) % Gaston % (Auto) (2-11) % Eos % (Auto) (0-4) % Baso % (Auto) (0-2) % Lymph # (Auto) (1.2-4.9) X10*3/uL Gaston # (Auto) (0.1-1.2) X10*3/uL Eos # (Auto) (0.0-0.4) X10*3/uL Baso # (Auto) (0.0-0.2) X10*3/uL Abs Immat Gran (auto) (0.00-0.03) X10*3/uL Absolute Neuts (auto) (2.0-8.3) x10*3/uL Absolute Nucleated RBC (0.0-0.012) X10*3/uL Nucleated RBC % (auto) (0.0-0.2) /100WBC Sodium (135-145) mmol/L Potassium (3.3-5.1) mmol/L Chloride (96-108) mmol/L Carbon Dioxide (22-29) mmol/L Anion Gap (12-20) BUN (9-16) mg/dL Creatinine (0.5-1.4) mg/dL Estim Creat Clear Calc Estimated GFR Random Glucose (60-115) mg/dL Calcium (8.4-10.2) mg/dL Magnesium (1.6-2.6) mg/dL Total Bilirubin (0.0-1.0) mg/dL AST (5-37) U/L ALT (0-40) U/L Alkaline Phosphatase (39-117) U/L Troponin I High Sens 10.1 9.0 (<3.5-35.0) ng/L B-Natriuretic Peptide (<100) pg/mL Total Protein (6.5-8.0) g/dL Albumin (3.5-5.0) g/dL Imaging Data Chest x-ray: Attestation: I personally reviewed and interpreted this imaging study as follows: My impression: Mild CHF. Radiologist's impression: EXAMINATION: XR CHEST CLINICAL INFORMATION: Shortness of breath and chest pain COMPARISON: 11/05/2021 TECHNIQUE: 2 views of the chest were obtained. FINDINGS: Moderate cardiomegaly. Pacer device stable and intact. Mild perirectal thickening and cephalization of pulmonary vasculature with small pleural effusions most consistent mild CHF. XR/XR chest 2V IMPRESSION: Mild CHF. Dictated By: Jalen Vallejo MD Signed By: Electronically signed by Jalen Vallejo MD 03/23/22 [id number] ECG Data Attestation: I personally reviewed and interpreted this ECG as follows: Prior ECG tracings: available for review Interpretation: Vent. Rate: 112 BPM ? ? Atrial Rate: 112 BPM P-R Int: 154 ms? QRS Dur: 082 ms QT Int: 346 ms ? ? ? P-R-T Axes: 067 -28 089 degrees QTc Int: 472 ms ? Sinus tachycardia Possible Left atrial enlargement Septal infarct (cited on or before 05-NOV-2021) ST & T wave abnormality, consider lateral ischemia Abnormal ECG When compared with ECG of 07-NOV-2021 19:16, Nonspecific T wave abnormality no longer evident in Inferior leads DD/ [id number] Discharge Plan Discharge Clinical Impression: CHF (congestive heart failure) Patient Disposition: Admitted As Inpatient Prescriptions: No Action cyclobenzaprine 10 mg tablet 10 mg PO TID 0RF spironolactone 50 mg tablet 50 mg PO DAILY Qty: 30 5RF Farxiga 10 mg tablet 10 mg PO DAILY Qty: 30 5RF amiodarone 200 mg tablet 200 mg PO DAILY Qty: 30 3RF atorvastatin 40 mg tablet 40 mg PO DAILY 0RF hydrocodone-acetaminophen 10-325 mg tablet 1 tab PO Q4-6H PRN (Reason: pain) 0RF sertraline 25 mg tablet 25 mg PO BEDTIME 0RF albuterol sulfate 90 mcg/actuation HFA aerosol inhaler 2 puff inhalation Q4-6H 0RF Eliquis 5 mg Tablet 5 mg PO BID@0600,1800 Qty: 60 0RF carvedilol [Coreg] 3.125 mg tablet 3.125 mg PO BID Qty: 60 0RF Rx Instructions: must administer with a meal/food losartan 50 mg tablet 50 mg PO DAILY 0RF torsemide 20 mg tablet 60 mg PO BID 0RF metolazone 2.5 mg tablet 2.5 mg PO QAM PRN (Reason: weight gain) 0RF Rx Instructions: when directed for weight gain, edema Print Language: Kiswahili
[2022-03-23 17:22] LABS: MANUAL DIFF FLAG NO
[2022-03-23 17:24] LABS: Basophils Absolute Auto 0.1 X10*3/uL (0.0-0.2); Basophils Percent Auto 0.9 % (0-2); Eosinophils Absolute Auto 0.2 X10*3/uL (0.0-0.4); Eosinophils Percent Auto 2.9 % (0-4); Hematocrit 42.5 % (42.0-52.0); Hemoglobin 13.4 g/dl (14.0-18.0); Imm Gran Abs Auto 0.03 X10*3/uL (0.00-0.03); Imm Gran Pct Auto 0.4 % (0.0-0.4); Lymphocytes Absolute Auto 2.1 X10*3/uL (1.2-4.9); Mean Corpuscular HGB Conc 31.5 g/dl (31.0-36.0); Mean Corpuscular Hemoglobin 29.7 pg (27.0-33.0); Mean Corpuscular Volume 94.2 fL (80.0-98.0); Mean Platelet Volume 9.4 fL (9.4-12.4); Monocytes Absolute Auto 0.5 X10*3/uL (0.1-1.2); Neutrophils Absolute Auto 5.1 x10*3/uL (2.0-8.3); Neutrophils Percent Auto 63.8 % (45-73); Platelet Count 288 X10*3/uL (160-400); Red Blood Count 4.51 X10*6/uL (4.60-5.80); Red Cell Distribution Width 16.8 % (11.0-16.0)
--- NOTE | 2022-03-23 17:24 | PC.NURSE ---
Pt comes in with complaints of SOB since this AM, PMHX of CHF, pt is A&Ox4, Lungs diminished in the bases, +3 pitting edema in BLE, dry cough present. IV established, labs drawn, awaiting MD busch at this time. O2 sat 100% on room air. Call crawford within reach, will continue to monitor.
[2022-03-23 17:46] LABS: Alanine Aminotransferase 9 U/L (0-40); Alkaline Phosphatase 112 U/L (39-117); Anion Gap 15 (12-20); Aspartate Amino Transferase 15 U/L (5-37); Blood Urea Nitrogen 14 mg/dL (9-16); Calcium 9.3 mg/dL (8.4-10.2); Carbon Dioxide 24 mmol/L (22-29); Chloride 104 mmol/L (96-108); Creatinine Clr Calc Pharmacy 107.4; Estimated Glomerular Filt Rate > 60; Glucose Random 108 mg/dL (60-115); Sodium 138 mmol/L (135-145); Total Protein 7.7 g/dL (6.5-8.0)
[2022-03-23 17:48] LABS: B Type Natriuretic Peptide 2518 pg/mL (<100); Troponin-I High Sensitivity 10.1 ng/L (<3.5-35.0)
[2022-03-23 18:05] VITALS: BP 119/83; PULSE 104; RESP 18; TEMP 36.6; O2SAT 99
[2022-03-23] MEDS: Furosemide 40 MG/4 ML VIAL IVPUSH (18:06)
[2022-03-23] MEDS: Morphine Sulfate 4 MG/ML CARTRIDGE IVPUSH ×2 (18:06→22:12)
[2022-03-23 19:36] VITALS: BP 114/78; PULSE 104; RESP 16; TEMP 36.6; O2SAT 94
--- NOTE | 2022-03-23 21:24 | PHA.MEDREC ---
Addendum entered by Allan Quintana [facility] 03/23/22 21:24: Spoke with patient. Says he only take the dapagliflozin 2-3 times weekly Original Note: Pharmacy Consult ? Medication Reconciliation Pharmacy has completed the medication reconciliation.
[2022-03-23 21:29] LABS: COVID-19 Test Negative (Negative)
--- NOTE | 2022-03-23 21:58 | PM.IMHP ---
History of Present Illness Date of Service: 03/23/22 Chief Complaint: SOB 52-year-old male with extensive past medical history of acute on chronic systolic heart failure, CVA, HTN, and SVT, ICD, history of COPD, presents to the hospital with complaints of shortness of breath as well as lower extremity swelling. Patient reports that his symptoms started about a day prior to presentation, he has a cough that is nonproductive, no increased sputum production. Has no fever or chills. Is complaining of chest pain that is across his chest worse with cough and deep inspiration, denies abdominal pain nausea or vomiting, no diarrhea constipation, no urinary symptoms. No weakness numbness or tingling. Patient reports compliance with his diuretic but sometimes reports that he sleeps in an forgets his morning dose. He reports otherwise he is compliant with low-sodium diet. Patient is also complaining of orthopnea and PND. On arrival to the ED patient found to be hemodynamically stable with a heart rate of 110, respiratory rate of 26, otherwise unremarkable Labs are significant for WBC count of 8.0, hemoglobin of 13.4, BNP of 2518, Chest x-ray shows mild CHF Patient will be admitted for further management Review of Systems Review of Systems: Yes all other systems are reviewed and are negative [facility] Medical History (Updated 03/24/22 @ 06:56 by Katja Greenwood MD) Acute on chronic systolic heart failure Artificial cardiac pacemaker Back injuries Cardiomyopathy CVA (cerebral vascular accident) History of COPD HTN (hypertension) ICD (implantable cardioverter-defibrillator) in place NSVT (nonsustained ventricular tachycardia) Family History Father Prostate cancer Mother No problems noted. Surgical History Hx of cardiac cath (~08/2015) Social History Household Members: None Housing: House Do you presently have visiting nurse or other home services: No Unable to assess alcohol history related to: Unknown Alcohol intake: former Patient Tobacco Use Status: Tobacco use Unknown Tobacco use type: Cigarette Cigarettes Per Day: 5 Use of substances other than those prescribed or required for medical reasons: Unknown Advance Directives: No Advance Directives Information Provided: No Do you have thoughts of harming others: None Do you have a plan to hurt others: No Plan Recently lost weight without trying: No Nutrition Risks: No Nutritional Risk Poor oral hygiene: No service: No Current occupational status: disabled Meds Allergies Allergy/AdvReac Type Severity Reaction Status Date / Time sacubitril [From Entresto] AdvReac Rash Verified 03/05/22 13:12 valsartan [From Entresto] AdvReac Rash Verified 03/05/22 13:12 Active Medications: Current Medications Pharmacy Consult (Consult Rx Perform Med Rec) 1 each MISCELLANE ONCE PRN PRN Reason: Consult order Home Medications Medication Instructions Recorded Confirmed Last Taken Type albuterol sulfate 90 mcg/actuation 2 puff INHALATION Q4-6H 06/14/21 03/23/22 09/06/21 History aerosol inhaler atorvastatin 40 mg tablet 40 mg PO DAILY 06/14/21 03/23/22 03/23/22 History hydrocodone 10 mg-acetaminophen 1 tab PO Q4-6H PRN 06/14/21 03/23/22 03/23/22 History 325 mg tablet sertraline 25 mg tablet 25 mg PO BEDTIME 06/14/21 03/23/22 03/22/22 History losartan 50 mg tablet 50 mg PO DAILY 11/05/21 03/23/22 03/23/22 History metolazone 2.5 mg tablet 2.5 mg PO QAM PRN 02/04/22 03/23/22 Unknown History torsemide 20 mg tablet 40 mg PO SUTHFRSA@0900,2100 tab 02/04/22 03/23/22 03/23/22 History dapagliflozin 10 mg tablet 10 mg PO MOWEFR 03/23/22 03/23/22 03/23/22 History (Farxiga) magnesium gluconate 27 mg 1 tab DAILY 03/23/22 03/23/22 03/23/22 History magnesium (500 mg) tablet (Mag-G) sulfamethoxazole 800 1 tab PO Q12H 03/23/22 03/23/22 03/23/22 History mg-trimethoprim 160 mg tablet torsemide 20 mg tablet 80 mg PO MOTUWE@0900,2100 03/23/22 03/23/22 03/20/22 History Physical Exam Vital Signs and Narrative: Vital Signs: Last Vital Signs Temp 97.8 F 03/23/22 19:36 Pulse 104 H 03/23/22 19:36 Resp 16 03/23/22 19:36 BP 114/78 03/23/22 19:36 Pulse Ox 94 03/23/22 19:36 BMI result Body Mass Index 31.9 Const: General: cooperative and no acute distress Orientation/consciousness: patient oriented x3 Eyes: General: appearance normal, both eyes and all related structures Pupils: Equal, round and reactive pupils present Resp: Effort & Inspection: normal respiratory effort Auscultation: clear to auscultation bilaterally Cardio: Rate: regular rate Rhythm: regular rhythm GI: Palpation (GI): Soft to palpation Auscultation: normal bowel sounds Skin: General skin exam: no rashes or lesions noted Neuro: General: patient oriented x3 Cranial nerves: Yes Equal, round and reactive pupils present Cognition (Neuro): normal cognition Extrem: Other: 2+ lower extremity edema General: Yes normal to inspection Results Labs CBC and Chem 7: 03/23/22 17:18 03/23/22 17:18 Labs: Laboratory Results - last 24 hr 03/23/22 03/23/22 03/23/22 17:18 17:18 17:18 MCV 94.2 MCH 29.7 MCHC 31.5 RDW 16.8 H Plt Count 288 MPV 9.4 Immature Gran % (Auto) 0.4 Neut % (Auto) 63.8 Lymph % (Auto) 26.0 [place] % (Auto) 6.0 Eos % (Auto) 2.9 Baso % (Auto) 0.9 Lymph # (Auto) 2.1 [place] # (Auto) 0.5 Eos # (Auto) 0.2 Baso # (Auto) 0.1 Abs Immat Gran (auto) 0.03 Absolute Neuts (auto) 5.1 Absolute Nucleated RBC 0.000 Nucleated RBC % (auto) 0.0 Anion Gap 15 Estim Creat Clear Calc 107.4 Estimated GFR > 60 Random Glucose 108 Calcium 9.3 Magnesium 2.0 Total Bilirubin 1.0 AST 15 ALT 9 Alkaline Phosphatase 112 Troponin I High Sens B-Natriuretic Peptide 2518 H Total Protein 7.7 Albumin 4.0 COVID-19 ([facility]) COVID-19 Clin Com 03/23/22 03/23/22 03/23/22 17:18 19:57 21:05 MCV MCH MCHC RDW Plt Count MPV Immature Gran % (Auto) Neut % (Auto) Lymph % (Auto) [place] % (Auto) Eos % (Auto) Baso % (Auto) Lymph # (Auto) [place] # (Auto) Eos # (Auto) Baso # (Auto) Abs Immat Gran (auto) Absolute Neuts (auto) Absolute Nucleated RBC Nucleated RBC % (auto) Anion Gap Estim Creat Clear Calc Estimated GFR Random Glucose Calcium Magnesium Total Bilirubin AST ALT Alkaline Phosphatase Troponin I High Sens 10.1 9.0 B-Natriuretic Peptide Total Protein Albumin COVID-19 ([facility]) Negative COVID-19 Clin Com See Note ECG Interpretation: Normal sinus rhythm, nonspecific ST T wave changes Imaging Radiologist's Impressions: Impressions Chest X-Ray 03/23/22 17:33 IMPRESSION: Mild CHF. 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: Status: Acute Plan 52-year-old male with past medical history of systolic heart failure presents to the hospital with complaints of shortness of breath as well as lower extremity edema found to be in CHF exacerbation # acute CHF exacerbation - patient has orthopnea, PND, dyspnea, elevated BNP common evidence of CHF on chest x-ray - will treat with IV Lasix, strict I&O, daily weight, low-sodium diet - echocardiogram, cardiology consulted - hold torsemide # on anticoagulation - for concern for thrombus on the ICD lead - continue Eliquis # history of CVA - continue Eliquis, statin # diabetes - hold oral antihyperglycemics - will treat with low-dose sliding scale insulin # hypertension - stable - continue antihypertensives DVT prophylaxis: Eliquis Given need for IV Lasix, patient will need a medically necessary to night hospital stay for further management and monitoring Quality Stroke Does the patient have a stroke diagnosis?: No VTE Prior VTE?: No VTE Risk Level:: Medical - moderate - high VTE Device Contraindication: Treatment Not Indicated VTE Drug Contraindication: N/A - Med Ordered
[2022-03-23 22:02] VITALS: BP 121/87; PULSE 107; RESP 18; TEMP 36.7; O2SAT 99
[2022-03-23 22:12] VITALS: RESP 18
[2022-03-23] MEDS: Furosemide 100 MG/10 ML VIAL 60 MG IVPUSH (22:12)
[2022-03-23 22:30] LABS: Glucose, Whole Blood 94 mg/dL (60-115)
[2022-03-24] VITALS (11 sets, daily range): BP systolic 102–132; BP diastolic 67–98; PULSE 90–106; RESP 12–22; TEMP 36.4–37.4; O2SAT 92–100
--- NOTE | 2022-03-24 | ECG_ITS ---
Test Reason : CHEST PAIN Blood Pressure : / mmHG Vent. Rate : 096 BPM Atrial Rate : 096 BPM P-R Int : 162 ms QRS Dur : 088 ms QT Int : 406 ms P-R-T Axes : 067 -31 109 degrees QTc Int : 512 ms Normal sinus rhythm Possible Left atrial enlargement Left axis deviation Septal infarct (cited on or before 05-NOV-2021) ST & T wave abnormality, consider lateral ischemia Prolonged QT Abnormal ECG When compared with ECG of 23-MAR-2022 17:27, Non-specific change in ST segment in Anterior leads Nonspecific T wave abnormality now evident in Inferior leads Referred By: Katja Greenwood Electronically Signed By:DEREK COOK MD
[2022-03-24] MEDS: Albuterol Sulfate 90 MCG 8 GM INHALER 2 PUFF INHALE ×2 (00:29→15:24)
[2022-03-24] MEDS: 0.9 % Sodium Chloride Flush 3 ML SYRINGE IVFLUSH ×3 (00:32→21:09)
[2022-03-24 03:02] LABS: Troponin-I High Sensitivity 9.9 ng/L (<3.5-35.0)
[2022-03-24] MEDS: Apixaban 5 MG TABLET PO ×2 (04:07→21:08)
[2022-03-24] MEDS: Morphine Sulfate 4 MG/ML CARTRIDGE IVPUSH ×4 (04:13→22:01)
[2022-03-24 07:20] LABS: MANUAL DIFF FLAG NO
[2022-03-24 07:23] LABS: Basophils Absolute Auto 0.1 X10*3/uL (0.0-0.2); Basophils Percent Auto 1.2 % (0-2); Eosinophils Absolute Auto 0.2 X10*3/uL (0.0-0.4); Eosinophils Percent Auto 3.2 % (0-4); Hematocrit 39.9 % (42.0-52.0); Hemoglobin 12.8 g/dl (14.0-18.0); Imm Gran Abs Auto 0.02 X10*3/uL (0.00-0.03); Imm Gran Pct Auto 0.3 % (0.0-0.4); Lymphocytes Absolute Auto 1.7 X10*3/uL (1.2-4.9); Lymphocytes Percent Auto 28.7 % (20-40); Mean Corpuscular HGB Conc 32.1 g/dl (31.0-36.0); Mean Corpuscular Hemoglobin 29.8 pg (27.0-33.0); Mean Platelet Volume 9.8 fL (9.4-12.4); Monocytes Absolute Auto 0.3 X10*3/uL (0.1-1.2); Monocytes Percent Auto 5.5 % (2-11); Neutrophils Absolute Auto 3.7 x10*3/uL (2.0-8.3); Neutrophils Percent Auto 61.1 % (45-73); Platelet Count 252 X10*3/uL (160-400); Red Blood Count 4.29 X10*6/uL (4.60-5.80); Red Cell Distribution Width 16.5 % (11.0-16.0)
[2022-03-24 07:37] LABS: Glucose, Whole Blood 129 mg/dL (60-115)
[2022-03-24] MEDS: Losartan Potassium 50 MG TABLET PO (08:44)
[2022-03-24] MEDS: Atorvastatin Calcium 40 MG TABLET PO (08:44)
[2022-03-24] MEDS: Amiodarone HCL 200 MG TABLET PO (08:44)
[2022-03-24] MEDS: Spironolactone 25 MG TABLET 50 MG PO (08:44)
[2022-03-24] MEDS: carvediloL 3.125 MG TABLET PO ×2 (08:44→21:08)
[2022-03-24 08:45] LABS: Blood Urea Nitrogen 12 mg/dL (9-16); Calcium 9.1 mg/dL (8.4-10.2); Creatinine Clr Calc Pharmacy 112.5; Estimated Glomerular Filt Rate > 60; Glucose Random 111 mg/dL (60-115)
[2022-03-24] MEDS: metOLazone 2.5 MG TABLET PO (08:45)
[2022-03-24 09:46] LABS: Anion Gap 16 (12-20); Carbon Dioxide 26 mmol/L (22-29); Chloride 101 mmol/L (96-108); Sodium 139 mmol/L (135-145)
[2022-03-24] MEDS: Furosemide 100 MG/10 ML VIAL 60 MG IVPUSH (09:57)
--- NOTE | 2022-03-24 10:46 | MHC.CM.PN ---
CM met with Patient at bedside and addressed IMM with him, providing him with the original and placing a copy on the chart. Patient lives alone in a house and has had Telehealth/[facility] through [facility] in the past and presently attends Cardiac Rehab at [facility]. Home/resume said services is the goal and CM has initiated and will follow for dc planning. Patient has received Moderna/covid vax X3 and PCP is Dr. Mike Duong.
[2022-03-24 10:55] LABS: Glucose, Whole Blood 118 mg/dL (60-115)
[2022-03-24] MEDS: Ibuprofen 400 MG TABLET PO (11:26)
[2022-03-24] MEDS: Cyclobenzaprine HCl 5 MG TABLET PO (11:27)
[2022-03-24] MEDS: Furosemide 200 MG in 0.9 % Sodium Chloride 80 ML IVCONT (12:09)
--- NOTE | 2022-03-24 13:33 | P.CONCA_ITS ---
History of Present Illness History of Present Illness Date of Service: 03/24/22 Requesting physician: Benjamin Mckeon Consult reason: congestive heart failure Chief complaint: CHF exacerbation Narrative: I was consulted to see Stephen in cardiology consultation for decompensated congestive heart failure. Patient says he has been taking all his medications as prescribed and recently was having increasing leg edema and this was being managed by Carleen however he continued to have worsening symptoms despite increasing diuretics and came to the hospital and noted to be in decompensated congestive heart failure. He has been receiving IV Lasix and he says he has been going to the bathroom and his leg edema is improved but remains short of breath. Is frustrated about his overall clinical condition is not sure why he has decompensation. He denies any noncompliance with medications. Denies any noncompliance with salt intake. He was in the process of being considered for CardioMEMS device. Neurohormonal modulation morillo he is on spironolactone, losartan, carvedilol, dapagliflozin. He also is on high-dose torsemide as well as p.r.n. metolazone at home. He denies any palpitations irregular heartbeat. On presentation he is noted to be in sinus rhythm. No anemia. Review of Systems Constitutional: Constitutional: Reports no additional constitutional complaints Eyes: Eyes: Reports no additional eye complaints Cardiovascular: Cardiovascular: Reports chest pain at rest, Reports leg edema, Denies lightheadedness, Denies Loss of Consciousness, Denies palpitations and Reports dyspnea on exertion Respiratory: Respiratory: Reports no additional respiratory complaints and Reports dyspnea on exertion Gastrointestinal: Gastrointestinal: Reports no additional gastrointestinal complaints Genitourinary: Genitourinary: Reports no additional male genitourinary complaints Musculoskeletal: Musculoskeletal: Reports no additional musculoskeletal complaints Integumentary/Breasts: Skin/Breast: Reports system reviewed and no additional complaints, except as docu Neurologic: Reports system reviewed and no additional complaints, except as documented Endocrine: Endocrine: Denies palpitations [facility] Past Medical History Medical History (Updated 03/24/22 @ 06:56 by Katja Greenwood MD) Acute on chronic systolic heart failure Artificial cardiac pacemaker Back injuries Cardiomyopathy CVA (cerebral vascular accident) History of COPD HTN (hypertension) ICD (implantable cardioverter-defibrillator) in place NSVT (nonsustained ventricular tachycardia) Family History Family History Father Prostate cancer Mother No problems noted. Surgical History Surgical History Hx of cardiac cath (~08/2015) Social History Social History Household Members: None Housing: House Do you presently have visiting nurse or other home services: No Unable to assess alcohol history related to: Unknown Alcohol intake: former Patient Tobacco Use Status: Tobacco use Unknown Tobacco use type: Cigarette Cigarettes Per Day: 5 Use of substances other than those prescribed or required for medical reasons: Unknown Currently Displaying Signs/Symptoms of Drug Intoxication Withdrawal: No Advance Directives: No Advance Directives Information Provided: No Do you have thoughts of harming others: None Do you have a plan to hurt others: No Plan Recently lost weight without trying: No Nutrition Risks: No Nutritional Risk Poor oral hygiene: No service: No Current occupational status: disabled Meds Allergies Allergy/AdvReac Type Severity Reaction Status Date / Time sacubitril [From Entresto] AdvReac Rash Verified 03/05/22 13:12 valsartan [From Entresto] AdvReac Rash Verified 03/05/22 13:12 Active Medications: Current Medications Acetaminophen (Acetaminophen 325 Mg Tablet) 650 mg PO Q6H PRN PRN Reason: Pain, Mild (Pain Scale 1-3) Hydrocodone Bitart/Acetaminophen (Hydrocodone Bit/Acetam 10/325 Tablet) 1 tab PO Q4H PRN PRN Reason: Pain, Severe (Pain Scale 7-10) Last Admin: 03/24/22 00:43 Dose: 1 tab Documented by: Albuterol Sulfate (Albuterol Sulfate 90 Mcg 8 Gm Inhaler) 2 puff INHALE RQ4H [facility] Last Admin: 03/24/22 11:39 Dose: Not Given Documented by: Amiodarone HCl (Amiodarone Hcl 200 Mg Tablet) 200 mg PO DAILY [facility] Last Admin: 03/24/22 08:44 Dose: 200 mg Documented by: Apixaban (Apixaban 5 Mg Tablet) 5 mg PO BID@0600,1800 [facility] Last Admin: 03/24/22 04:07 Dose: 5 mg Documented by: Atorvastatin Calcium (Atorvastatin Calcium 40 Mg Tablet) 40 mg PO DAILY [facility] Last Admin: 03/24/22 08:44 Dose: 40 mg Documented by: Carvedilol (Carvedilol 3.125 Mg Tablet) 3.125 mg PO BID [facility]; Protocol Last Admin: 03/24/22 08:44 Dose: 3.125 mg Documented by: Cyclobenzaprine HCl (Cyclobenzaprine Hcl 5 Mg Tablet) 5 mg PO TID PRN PRN Reason: Muscle Spasm Last Admin: 03/24/22 11:27 Dose: 5 mg Documented by: Dextrose (Dextrose 50 % 25 Gm/50 Ml Syringe) 25 gm IVPUSH Q15M PRN; Protocol PRN Reason: per Hypoglycemia Standing Ord. Docusate Sodium (Docusate Sodium 100 Mg Capsule) 100 mg PO DAILY PRN PRN Reason: Constipation Glucose (Glucose Gel 15 Gm Gel..Gram.) 15 gm PO Q15M PRN; Protocol PRN Reason: per Hypoglycemia Standing Ord. Furosemide 200 mg/ Sodium (Chloride) 100 mls @ 5 mls/hr IVCONT .Q20H [facility] Last Admin: 03/24/22 12:09 Dose: 10 mg/hr, 5 mls/hr Documented by: Insulin Human Lispro (Insulin Lispro 100 Unit/Ml 3 Ml Vial) 0 unit SUBCUT QIDACHS [facility]; Protocol Last Admin: 03/24/22 11:16 Dose: Not Given Documented by: Losartan Potassium (Losartan Potassium 50 Mg Tablet) 50 mg PO DAILY [facility]; Protocol Last Admin: 03/24/22 08:44 Dose: 50 mg Documented by: Metolazone (Metolazone 2.5 Mg Tablet) 2.5 mg PO DAILY [facility] Last Admin: 03/24/22 08:45 Dose: 2.5 mg Documented by: Morphine Sulfate (Morphine Sulfate 4 Mg/Ml Cartridge) 4 mg IVPUSH Q4H PRN; Protocol PRN Reason: Pain, Severe (Pain Scale 7-10) Last Admin: 03/24/22 08:45 Dose: 4 mg Documented by: Ondansetron HCl (Ondansetron Hcl 4 Mg/2 Ml Vial) 4 mg IVPUSH Q8H PRN PRN Reason: Nausea and Vomiting Pharmacy Consult (Consult Rx Perform Med Rec) 1 each MISCELLANE ONCE PRN PRN Reason: Consult order Sertraline HCl (Sertraline Hcl 25 Mg Tablet) 25 mg PO BEDTIME [facility] Sodium Chloride (0.9 % Sodium Chloride Flush 3 Ml Syringe) 3 ml IVFLUSH QSHIFT [facility] Last Admin: 03/24/22 08:44 Dose: 3 ml Documented by: Spironolactone (Spironolactone 25 Mg Tablet) 50 mg PO DAILY [facility]; Protocol Last Admin: 03/24/22 08:44 Dose: 50 mg Documented by: Home Medications Medication Instructions Recorded Confirmed Last Taken Type albuterol sulfate 90 mcg/actuation 2 puff INHALATION Q4-6H 06/14/21 03/23/22 1 History aerosol inhaler atorvastatin 40 mg tablet 40 mg PO DAILY 06/14/21 03/23/22 03/23/22 History hydrocodone 10 mg-acetaminophen 1 tab PO Q4-6H PRN 06/14/21 03/23/22 03/23/22 History 325 mg tablet sertraline 25 mg tablet 25 mg PO BEDTIME 06/14/21 03/23/22 03/22/22 History losartan 50 mg tablet 50 mg PO DAILY 11/05/21 03/23/22 03/23/22 History metolazone 2.5 mg tablet 2.5 mg PO QAM PRN 02/04/22 03/23/22 Unknown History torsemide 20 mg tablet 40 mg PO SUTHFRSA@0900,2100 tab 02/04/22 03/23/22 03/23/22 History dapagliflozin 10 mg tablet 10 mg PO MOWEFR 03/23/22 03/23/22 03/23/22 History (Farxiga) magnesium gluconate 27 mg 1 tab DAILY 03/23/22 03/23/22 03/23/22 History magnesium (500 mg) tablet (Mag-G) sulfamethoxazole 800 1 tab PO Q12H 03/23/22 03/23/22 03/23/22 History mg-trimethoprim 160 mg tablet torsemide 20 mg tablet 80 mg PO MOTUWE@0900,2100 03/23/22 03/23/22 03/20/22 History Physical Exam Vital Signs: Vital Signs: Last Vital Signs Temp 97.5 F 03/24/22 11:03 Pulse 95 03/24/22 11:03 Resp 19 03/24/22 11:03 BP 116/67 03/24/22 11:03 Pulse Ox 98 03/24/22 11:03 BMI result Body Mass Index 31.9 Const: General: cooperative, comfortable, alert, awake and in distress mild and respiratory Nutritional Appearance: overweight Orientation/consciousness: patient oriented x3 HEENT: Head: Yes normocephalic and Yes atraumatic Neck: Neck: Yes trachea midline, Yes supple and Yes JVD Resp: Effort & Inspection: normal respiratory effort Auscultation: rales Cardio: Jugular venous distension: JVD Palpation: abnormal PMI displaced PMI Rate: regular rate Rhythm: regular rhythm Heart sounds: S1 normal heart sound present, S2 normal heart sound present, no click, Gallop heart sound present S3 gallop, no murmurs and no rubs GI: Auscultation: normal bowel sounds Skin: General skin exam: no rashes or lesions noted Neuro: General: patient oriented x3 and no focal motor deficits Extrem: General: No clubbing, No cyanosis and Yes edema Psych: Appearance: grossly normal Objective Labs and Meds Result diagrams: 03/24/22 06:53 03/24/22 06:53 Lab results: Laboratory Results - last 24 hr 03/23/22 03/23/22 03/23/22 17:18 17:18 17:18 WBC 8.0 RBC 4.51 L Hgb 13.4 L Hct 42.5 MCV 94.2 MCH 29.7 MCHC 31.5 RDW 16.8 H Plt Count 288 MPV 9.4 Immature Gran % (Auto) 0.4 Neut % (Auto) 63.8 Lymph % (Auto) 26.0 [place] % (Auto) 6.0 Eos % (Auto) 2.9 Baso % (Auto) 0.9 Lymph # (Auto) 2.1 [place] # (Auto) 0.5 Eos # (Auto) 0.2 Baso # (Auto) 0.1 Abs Immat Gran (auto) 0.03 Absolute Neuts (auto) 5.1 Absolute Nucleated RBC 0.000 Nucleated RBC % (auto) 0.0 Sodium 138 Potassium 5.0 D Chloride 104 Carbon Dioxide 24 Anion Gap 15 BUN 14 D Creatinine 0.89 Estim Creat Clear Calc 107.4 Estimated GFR > 60 POC Glucose Random Glucose 108 Calcium 9.3 Magnesium 2.0 Total Bilirubin 1.0 AST 15 ALT 9 Alkaline Phosphatase 112 Troponin I High Sens B-Natriuretic Peptide 2518 H Total Protein 7.7 Albumin 4.0 COVID-19 ([facility]) COVID-19 Clin Com 03/23/22 03/23/22 03/23/22 17:18 19:57 21:05 WBC RBC Hgb Hct MCV MCH MCHC RDW Plt Count MPV Immature Gran % (Auto) Neut % (Auto) Lymph % (Auto) [place] % (Auto) Eos % (Auto) Baso % (Auto) Lymph # (Auto) [place] # (Auto) Eos # (Auto) Baso # (Auto) Abs Immat Gran (auto) Absolute Neuts (auto) Absolute Nucleated RBC Nucleated RBC % (auto) Sodium Potassium Chloride Carbon Dioxide Anion Gap BUN Creatinine Estim Creat Clear Calc Estimated GFR POC Glucose Random Glucose Calcium Magnesium Total Bilirubin AST ALT Alkaline Phosphatase Troponin I High Sens 10.1 9.0 B-Natriuretic Peptide Total Protein Albumin COVID-19 ([facility]) Negative COVID-19 Clin Com See Note 03/23/22 03/24/22 03/24/22 22:21 02:37 06:53 WBC 6.0 RBC 4.29 L Hgb 12.8 L Hct 39.9 L MCV 93.0 MCH 29.8 MCHC 32.1 RDW 16.5 H Plt Count 252 MPV 9.8 Immature Gran % (Auto) 0.3 Neut % (Auto) 61.1 Lymph % (Auto) 28.7 [place] % (Auto) 5.5 Eos % (Auto) 3.2 Baso % (Auto) 1.2 Lymph # (Auto) 1.7 [place] # (Auto) 0.3 Eos # (Auto) 0.2 Baso # (Auto) 0.1 Abs Immat Gran (auto) 0.02 Absolute Neuts (auto) 3.7 Absolute Nucleated RBC 0.000 Nucleated RBC % (auto) 0.0 Sodium Potassium Chloride Carbon Dioxide Anion Gap BUN Creatinine Estim Creat Clear Calc Estimated GFR POC Glucose 94 Random Glucose Calcium Magnesium Total Bilirubin AST ALT Alkaline Phosphatase Troponin I High Sens 9.9 B-Natriuretic Peptide Total Protein Albumin COVID-19 ([facility]) COVID-19 Clin Com 03/24/22 03/24/22 03/24/22 06:53 07:34 10:51 WBC RBC Hgb Hct MCV MCH MCHC RDW Plt Count MPV Immature Gran % (Auto) Neut % (Auto) Lymph % (Auto) [place] % (Auto) Eos % (Auto) Baso % (Auto) Lymph # (Auto) [place] # (Auto) Eos # (Auto) Baso # (Auto) Abs Immat Gran (auto) Absolute Neuts (auto) Absolute Nucleated RBC Nucleated RBC % (auto) Sodium 139 Potassium 4.0 Chloride 101 Carbon Dioxide 26 Anion Gap 16 BUN 12 Creatinine 0.85 Estim Creat Clear Calc 112.5 Estimated GFR > 60 POC Glucose 129 H 118 H Random Glucose 111 Calcium 9.1 Magnesium Total Bilirubin AST ALT Alkaline Phosphatase Troponin I High Sens B-Natriuretic Peptide Total Protein Albumin COVID-19 ([facility]) COVID-19 Clin Com Imaging Radiologist's impression: Impressions Chest X-Ray 03/23/22 17:33 IMPRESSION: Mild CHF. Venous Duplex 03/23/22 23:40 IMPRESSION: No DVT demonstrated in the bilateral lower extremities. Assessment and Plan (1) Acute on chronic HFrEF (heart failure with reduced ejection fraction): Status: Acute Acute onset heart failure syndrome in patient with severe LV systolic dysfunction without any obvious triggers. Denies change in his medications changes dietary habits. No arrhythmias noted. His diuretic response has been tepid. Switch to IV Lasix drip at 10 mg an hour. Continue monitor strict intake and output chart. Continue neurohormonal modulation with losartan which can maximize to 50 mg b.i.d.. Continue carvedilol and Aldactone therapy. Continue dapagliflozin. Strict intake and output chart and monitoring of renal function electrolytes. Replace electrolytes as needed. Will continue to with you. I think he will benefit with CardioMEMS device as outpatient. Thank you for allowing us to partake in his care Procedures Date of Service Date of Service: 03/24/22
--- NOTE | 2022-03-24 15:53 | HO.PM.IMPN ---
Subjective Subjective Date of Service: 03/24/22 Interval History: the patient was seen and evaluated this morning Laying in bed, feels improvement since coming in still having significant edema in his lower extremities Denies any fever, chills or Chest pain No reported other overnight events. Systemic review: No fever, chills or weakness No chest pain, palpitation but has edema in lower extremities Reporting PND, dyspnea No abdominal pain, nausea or vomiting No urinary symptoms No any rash or wounds Physical Exam Vital Signs: Vital Signs: Last Vital Signs Temp 98.0 F 03/24/22 15:07 Pulse 95 03/24/22 15:24 Resp 20 03/24/22 15:24 BP 114/79 03/24/22 15:07 Pulse Ox 99 03/24/22 15:07 BMI result Body Mass Index 31.9 Const: Other: Constitutional : Alert, oriented, not in distress Neck : Normal inspection, Supple Cardiovascular : RRR, no JVP, +2 bilateral lower extremity edema Respiratory : fair bilateral air entry, basal found bilateral crackles, wheezes or rhonchi Gastrointestinal: soft, lax, Normal bowel sounds, Non tender Skin : Warm, Dry Neurological : Alert & oriented x3, No focal deficit , CN 2-12 within normal Objective Data Active Medications Acetaminophen (Acetaminophen 325 Mg Tablet) 650 mg PO Q6H PRN PRN Reason: Pain, Mild (Pain Scale 1-3) Hydrocodone Bitart/Acetaminophen (Hydrocodone Bit/Acetam 10/325 Tablet) 1 tab PO Q4H PRN PRN Reason: Pain, Severe (Pain Scale 7-10) Last Admin: 03/24/22 00:43 Dose: 1 tab Documented by: OSKAR Albuterol Sulfate (Albuterol Sulfate 90 Mcg 8 Gm Inhaler) 2 puff INHALE RQ4H [facility] Last Admin: 03/24/22 15:24 Dose: 2 puff Documented by: SAMUEL Amiodarone HCl (Amiodarone Hcl 200 Mg Tablet) 200 mg PO DAILY [facility] Last Admin: 03/24/22 08:44 Dose: 200 mg Documented by: TRISHA Apixaban (Apixaban 5 Mg Tablet) 5 mg PO BID@0600,1800 [facility] Last Admin: 03/24/22 04:07 Dose: 5 mg Documented by: CAROLE Atorvastatin Calcium (Atorvastatin Calcium 40 Mg Tablet) 40 mg PO DAILY [facility] Last Admin: 03/24/22 08:44 Dose: 40 mg Documented by: TRISHA Carvedilol (Carvedilol 3.125 Mg Tablet) 3.125 mg PO BID [facility]; Protocol Last Admin: 03/24/22 08:44 Dose: 3.125 mg Documented by: TRISHA Cyclobenzaprine HCl (Cyclobenzaprine Hcl 5 Mg Tablet) 5 mg PO TID PRN PRN Reason: Muscle Spasm Last Admin: 03/24/22 11:27 Dose: 5 mg Documented by: TRISHA Dextrose (Dextrose 50 % 25 Gm/50 Ml Syringe) 25 gm IVPUSH Q15M PRN; Protocol PRN Reason: per Hypoglycemia Standing Ord. Docusate Sodium (Docusate Sodium 100 Mg Capsule) 100 mg PO DAILY PRN PRN Reason: Constipation Glucose (Glucose Gel 15 Gm Gel..Gram.) 15 gm PO Q15M PRN; Protocol PRN Reason: per Hypoglycemia Standing Ord. Furosemide 200 mg/ Sodium (Chloride) 100 mls @ 5 mls/hr IVCONT .Q20H [facility] Last Admin: 03/24/22 12:09 Dose: 10 mg/hr, 5 mls/hr Documented by: TRISHA Insulin Human Lispro (Insulin Lispro 100 Unit/Ml 3 Ml Vial) 0 unit SUBCUT QIDACHS [facility]; Protocol Last Admin: 03/24/22 11:16 Dose: Not Given Documented by: TRISHA Non-Admin Reason: No Insulin Coverage Losartan Potassium (Losartan Potassium 50 Mg Tablet) 50 mg PO DAILY [facility]; Protocol Last Admin: 03/24/22 08:44 Dose: 50 mg Documented by: TRISHA Metolazone (Metolazone 2.5 Mg Tablet) 2.5 mg PO DAILY [facility] Last Admin: 03/24/22 08:45 Dose: 2.5 mg Documented by: TRISHA Morphine Sulfate (Morphine Sulfate 4 Mg/Ml Cartridge) 4 mg IVPUSH Q4H PRN; Protocol PRN Reason: Pain, Severe (Pain Scale 7-10) Last Admin: 03/24/22 15:20 Dose: 4 mg Documented by: TRISHA Ondansetron HCl (Ondansetron Hcl 4 Mg/2 Ml Vial) 4 mg IVPUSH Q8H PRN PRN Reason: Nausea and Vomiting Pharmacy Consult (Consult Rx Perform Med Rec) 1 each MISCELLANE ONCE PRN PRN Reason: Consult order Sertraline HCl (Sertraline Hcl 25 Mg Tablet) 25 mg PO BEDTIME [facility] Sodium Chloride (0.9 % Sodium Chloride Flush 3 Ml Syringe) 3 ml IVFLUSH QSHIFT [facility] Last Admin: 03/24/22 08:44 Dose: 3 ml Documented by: TRISHA Spironolactone (Spironolactone 25 Mg Tablet) 50 mg PO DAILY [facility]; Protocol Last Admin: 03/24/22 08:44 Dose: 50 mg Documented by: TRISHA Labs CBC & Chem 7: 03/24/22 06:53 03/24/22 06:53 Labs: Laboratory Results - last 24 hr 03/23/22 03/23/22 03/23/22 17:18 17:18 17:18 MCV 94.2 MCH 29.7 MCHC 31.5 RDW 16.8 H Plt Count 288 MPV 9.4 Immature Gran % (Auto) 0.4 Neut % (Auto) 63.8 Lymph % (Auto) 26.0 Curry % (Auto) 6.0 Eos % (Auto) 2.9 Baso % (Auto) 0.9 Lymph # (Auto) 2.1 Curry # (Auto) 0.5 Eos # (Auto) 0.2 Baso # (Auto) 0.1 Abs Immat Gran (auto) 0.03 Absolute Neuts (auto) 5.1 Absolute Nucleated RBC 0.000 Nucleated RBC % (auto) 0.0 Anion Gap 15 Estim Creat Clear Calc 107.4 Estimated GFR > 60 POC Glucose Random Glucose 108 Calcium 9.3 Magnesium 2.0 Total Bilirubin 1.0 AST 15 ALT 9 Alkaline Phosphatase 112 Troponin I High Sens B-Natriuretic Peptide 2518 H Total Protein 7.7 Albumin 4.0 COVID-19 ([facility]) COVID-19 Clin Com 03/23/22 03/23/22 03/23/22 17:18 19:57 21:05 MCV MCH MCHC RDW Plt Count MPV Immature Gran % (Auto) Neut % (Auto) Lymph % (Auto) Curry % (Auto) Eos % (Auto) Baso % (Auto) Lymph # (Auto) Curry # (Auto) Eos # (Auto) Baso # (Auto) Abs Immat Gran (auto) Absolute Neuts (auto) Absolute Nucleated RBC Nucleated RBC % (auto) Anion Gap Estim Creat Clear Calc Estimated GFR POC Glucose Random Glucose Calcium Magnesium Total Bilirubin AST ALT Alkaline Phosphatase Troponin I High Sens 10.1 9.0 B-Natriuretic Peptide Total Protein Albumin COVID-19 ([facility]) Negative [email or web address] Clin Com See Note 03/23/22 03/24/22 03/24/22 22:21 02:37 06:53 MCV 93.0 MCH 29.8 MCHC 32.1 RDW 16.5 H Plt Count 252 MPV 9.8 Immature Gran % (Auto) 0.3 Neut % (Auto) 61.1 Lymph % (Auto) 28.7 Curry % (Auto) 5.5 Eos % (Auto) 3.2 Baso % (Auto) 1.2 Lymph # (Auto) 1.7 Curry # (Auto) 0.3 Eos # (Auto) 0.2 Baso # (Auto) 0.1 Abs Immat Gran (auto) 0.02 Absolute Neuts (auto) 3.7 Absolute Nucleated RBC 0.000 Nucleated RBC % (auto) 0.0 Anion Gap Estim Creat Clear Calc Estimated GFR POC Glucose 94 Random Glucose Calcium Magnesium Total Bilirubin AST ALT Alkaline Phosphatase Troponin I High Sens 9.9 B-Natriuretic Peptide Total Protein Albumin COVID-19 ([facility]) COVID-19 [employer] Com 03/24/22 03/24/22 03/24/22 06:53 07:34 10:51 MCV MCH MCHC RDW Plt Count MPV Immature Gran % (Auto) Neut % (Auto) Lymph % (Auto) Curry % (Auto) Eos % (Auto) Baso % (Auto) Lymph # (Auto) Curry # (Auto) Eos # (Auto) Baso # (Auto) Abs Immat Gran (auto) Absolute Neuts (auto) Absolute Nucleated RBC Nucleated RBC % (auto) Anion Gap 16 Estim Creat Clear Calc 112.5 Estimated GFR > 60 POC Glucose 129 H 118 H Random Glucose 111 Calcium 9.1 Magnesium Total Bilirubin AST ALT Alkaline Phosphatase Troponin I High Sens B-Natriuretic Peptide Total Protein Albumin COVID-19 ([facility]) COVID-19 Clin Com Assessment and Plan (1) Acute on chronic HFrEF (heart failure with reduced ejection fraction): Status: Acute (2) NSVT (nonsustained ventricular tachycardia): Status: Acute Plan 52-year-old male with past medical history of systolic heart failure presents to the hospital with complaints of shortness of breath as well as lower extremity edema found to be in CHF exacerbation # acute systolic CHF exacerbation evidence of CHF on chest x-ray, elevated BNP strict I&O low-sodium diet To do echocardiogram cardiology input appreciated, he will benefit with CardioMEMS device as outpatient.? started on Lasix drip Increase losartan to 50 b.i.d. Continue carvedilol , Aldactone and dapagliflozin # NSVT One incident of 5 beats run of NSVT check electrolytes, keep K above 4, mg above 2 Continue amiodarone, carvedilol Continue to monitor on telemetry # on anticoagulation for concern for thrombus on the ICD lead continue Eliquis # history of CVA continue Eliquis, statin # Type 2 diabetes hold oral antihyperglycemics sliding scale insulin Diabetic diet # hypertension continue antihypertensives DVT prophylaxis Eliquis patient will continue to need hospital stay for treatment of CHF exacerbation with IV Lasix drip given night chance of decompensation to hypoxic respiratory failure. Quality Stroke Does the patient have a stroke diagnosis?: No VTE Prior VTE?: No VTE Risk Level:: Medical - moderate - high VTE Device Contraindication: Treatment Not Indicated VTE Drug Contraindication: N/A - Med Ordered
[2022-03-24 16:31] LABS: Glucose, Whole Blood 164 mg/dL (60-115)
[2022-03-24] MEDS: Insulin Lispro 100 UNIT/ML 3 ML VIAL SUBCUT ×2 (16:46→21:09)
[2022-03-24 19:26] LABS: Glucose, Whole Blood 151 mg/dL (60-115)
[2022-03-24] MEDS: Sertraline HCL 25 MG TABLET PO (21:09)
[2022-03-25] MEDS: Morphine Sulfate 4 MG/ML CARTRIDGE IVPUSH ×2 (02:02→08:00)
[2022-03-25 03:14] VITALS: BP 95/59; PULSE 92; RESP 16; TEMP 36.2; O2SAT 95
[2022-03-25] MEDS: Apixaban 5 MG TABLET PO (05:09)
[2022-03-25] MEDS: Furosemide 200 MG in 0.9 % Sodium Chloride 80 ML IVCONT (05:11)
[2022-03-25 05:43] VITALS: BMI 30.6
[2022-03-25 07:02] VITALS: BP 120/88; PULSE 87; RESP 18; TEMP 35.9; O2SAT 97
[2022-03-25 07:19] LABS: Magnesium 1.8 mg/dL (1.6-2.6)
[2022-03-25 07:22] LABS: Glucose, Whole Blood 166 mg/dL (60-115)
[2022-03-25 07:28] LABS: B Type Natriuretic Peptide 1340 pg/mL (<100)
[2022-03-25 07:30] LABS: Anion Gap 16 (12-20); Blood Urea Nitrogen 19 mg/dL (9-16); Calcium 10.2 mg/dL (8.4-10.2); Carbon Dioxide 33 mmol/L (22-29); Chloride 93 mmol/L (96-108); Creatinine Clr Calc Pharmacy 74.3; Estimated Glomerular Filt Rate 60; Glucose Random 138 mg/dL (60-115); Sodium 138 mmol/L (135-145)
[2022-03-25] MEDS: Albuterol Sulfate 90 MCG 8 GM INHALER 2 PUFF INHALE ×2 (07:37→11:37)
[2022-03-25 07:38] VITALS: PULSE 89; RESP 18; O2SAT 93
[2022-03-25] MEDS: Losartan Potassium 50 MG TABLET PO (07:56)
[2022-03-25] MEDS: Amiodarone HCL 200 MG TABLET PO (07:57)
[2022-03-25] MEDS: metOLazone 2.5 MG TABLET PO (07:57)
[2022-03-25] MEDS: Atorvastatin Calcium 40 MG TABLET PO (07:57)
[2022-03-25] MEDS: carvediloL 3.125 MG TABLET PO (07:57)
[2022-03-25] MEDS: Spironolactone 25 MG TABLET 50 MG PO (07:58)
[2022-03-25] MEDS: Insulin Lispro 100 UNIT/ML 3 ML VIAL SUBCUT (07:59)
[2022-03-25] MEDS: 0.9 % Sodium Chloride Flush 3 ML SYRINGE IVFLUSH (08:03)
--- NOTE | 2022-03-25 10:35 | P.PNCA_ITS ---
Subjective Subjective Date of Service: 03/25/22 Interval history: He states that he is feeling better. Shortness of breath is improved. No anginal-type chest pains. Leg swelling is also improved per patient. Review of Systems Review of Systems Yes all other systems are reviewed and are negative Constitutional: Reports as per HPI Eyes: Reports as per HPI Reports as per HPI Cardiovascular: Reports as per HPI, Denies acrocyanosis, Denies cool extremi ties, Denies chest pain, Denies leg edema, Denies lightheadedness, Denies palpitations and Denies dyspnea Respiratory: Reports as per HPI, Reports no additional respiratory complaints and Denies dyspnea Gastrointestinal: Reports as per HPI and Reports no additional gastrointestinal complaints Genitourinary: Reports no additional male genitourinary complaints and Reports as per HPI Musculoskeletal: Reports no additional musculoskeletal complaints and Reports as per HPI Skin/Breast: Reports system reviewed and no additional complaints, except as docu Reports system reviewed and no additional complaints, except as documented and Reports as per HPI Psychiatric: Reports no additional psychiatric complaints and Reports as per HPI Endocrine: Reports no additional endocrine complaints, Reports as per HPI and Denies palpitations Hematologic/Lymphatic: Reports no additional hematologic/lymphatic complaints and Reports as per HPI Allergic/Immunologic: Reports no additional allergic/immunologic complaints and Reports as per HPI Physical Exam Vital Signs: Last Vital Signs Temp 96.6 F L 03/25/22 07:02 Pulse 89 03/25/22 07:38 Resp 18 03/25/22 07:38 BP 120/88 03/25/22 07:02 Pulse Ox 97 03/25/22 07:02 BMI result Body Mass Index 30.6 Const General: comfortable and no acute distress Orientation/consciousness: patient oriented x3 HEENT Other: Unremarkable Head: Yes normal to inspection Neck Neck: Yes normal visual inspection Chest Chest palpation & inspection: normal inspection of the chest Resp Auscultation: clear to auscultation bilaterally Cardio Palpation: normal PMI Heart sounds: S1 normal heart sound present, S2 normal heart sound present, no gallops, no murmurs and no rubs GI Palpation (GI): Soft to palpation Back/Spine/Pelvis Other: unremarkable Skin General skin exam: no rashes or lesions noted Neuro General: patient oriented x3 Extrem Other: Warm extremities. No significant edema. General: Yes normal to inspection Psych Mental Status: mental status grossly normal Objective Labs and Meds Result diagrams: 03/24/22 06:53 03/25/22 06:32 Lab results: Laboratory Results - last 24 hr 03/24/22 03/24/22 03/24/22 10:51 16:00 19:20 Sodium Potassium Chloride Carbon Dioxide Anion Gap BUN Creatinine Estim Creat Clear Calc Estimated GFR POC Glucose 118 H 164 H 151 H Random Glucose Calcium Magnesium B-Natriuretic Peptide 03/25/22 03/25/22 03/25/22 06:32 06:32 06:32 Sodium 138 Potassium 4.0 Chloride 93 L Carbon Dioxide 33 H Anion Gap 16 BUN 19 H D Creatinine 1.26 Estim Creat Clear Calc 74.3 Estimated GFR 60 POC Glucose Random Glucose 138 H Calcium 10.2 D Magnesium 1.8 B-Natriuretic Peptide 1340 H 03/25/22 06:58 Sodium Potassium Chloride Carbon Dioxide Anion Gap BUN Creatinine Estim Creat Clear Calc Estimated GFR POC Glucose 166 H Random Glucose Calcium Magnesium B-Natriuretic Peptide Progress Note: A&P Assessment and plan (1) Acute on chronic HFrEF (heart failure with reduced ejection fraction): Status: Acute (2) NICM (nonischemic cardiomyopathy): Status: Acute (3) NSVT (nonsustained ventricular tachycardia): Status: Acute (4) ICD (implantable cardioverter-defibrillator) in place: Status: Acute Plan EKG shows sinus rhythm at 96/Min; biatrial enlargement; lateral T inversions. Overall similar to before. Previous echocardiograms with severe LV dysfunction. With regard to medications, he is on optimal regimen including carvedilol, losartan, spironolactone, dapagliflozin, diuretics including torsemide/metolazone. Current episode of heart failure admission seems to have been unprovoked as he is stating compliance with everything. However, improved since hospitalization with diuretics. He does have NSVT on telemetry and has had previous episodes of sustained VT/VFib and ICD shocks but nothing recently. He is maintained on amiodarone that can be continued. He is on anticoagulation for question of thrombus in the ICD lead. [facility] [place] also state PAF but not clear if that is ever been truly identified. Discharge planning. Will arrange follow-up in the office. Last month, cardiac BNP was 399. However when he arrived to the ER it was 2500. Hence had went up significantly. Repeat check is 1340. Fall Risk Details Current Medications: Current Medications Acetaminophen (Acetaminophen 325 Mg Tablet) 650 mg PO Q6H PRN PRN Reason: Pain, Mild (Pain Scale 1-3) Hydrocodone Bitart/Acetaminophen (Hydrocodone Bit/Acetam 10/325 Tablet) 1 tab PO Q4H PRN PRN Reason: Pain, Severe (Pain Scale 7-10) Last Admin: 03/24/22 00:43 Dose: 1 tab Documented by: Albuterol Sulfate (Albuterol Sulfate 90 Mcg 8 Gm Inhaler) 2 puff INHALE RQ4H [facility] Last Admin: 03/25/22 07:37 Dose: 2 puff Documented by: Amiodarone HCl (Amiodarone Hcl 200 Mg Tablet) 200 mg PO DAILY [facility] Last Admin: 03/25/22 07:57 Dose: 200 mg Documented by: Apixaban (Apixaban 5 Mg Tablet) 5 mg PO BID@0600,1800 [facility] Last Admin: 03/25/22 05:09 Dose: 5 mg Documented by: Atorvastatin Calcium (Atorvastatin Calcium 40 Mg Tablet) 40 mg PO DAILY [facility] Last Admin: 03/25/22 07:57 Dose: 40 mg Documented by: Benzonatate (Benzonatate 100 Mg Capsule) 200 mg PO TID [facility] Carvedilol (Carvedilol 3.125 Mg Tablet) 3.125 mg PO BID [facility]; Protocol Last Admin: 03/25/22 07:57 Dose: 3.125 mg Documented by: Cyclobenzaprine HCl (Cyclobenzaprine Hcl 5 Mg Tablet) 5 mg PO TID PRN PRN Reason: Muscle Spasm Last Admin: 03/24/22 11:27 Dose: 5 mg Documented by: Dextrose (Dextrose 50 % 25 Gm/50 Ml Syringe) 25 gm IVPUSH Q15M PRN; Protocol PRN Reason: per Hypoglycemia Standing Ord. Docusate Sodium (Docusate Sodium 100 Mg Capsule) 100 mg PO DAILY PRN PRN Reason: Constipation Glucose (Glucose Gel 15 Gm Gel..Gram.) 15 gm PO Q15M PRN; Protocol PRN Reason: per Hypoglycemia Standing Ord. Insulin Human Lispro (Insulin Lispro 100 Unit/Ml 3 Ml Vial) 0 unit SUBCUT QIDACHS [facility]; Protocol Last Admin: 03/25/22 07:59 Dose: 2 unit Documented by: Losartan Potassium (Losartan Potassium 50 Mg Tablet) 50 mg PO DAILY [facility]; Protocol Last Admin: 03/25/22 07:56 Dose: 50 mg Documented by: Magnesium Oxide ([facility] 400 Mg [facility]t) [facility] (Metolazone 2.5 Mg Tablet) 2.5 mg PO DAILY [facility] Last Admin: 03/25/22 07:57 Dose: 2.5 mg Documented by: Morphine Sulfate (Morphine Sulfate 4 Mg/Ml Cartridge) 4 mg IVPUSH Q4H PRN; Protocol PRN Reason: Pain, Severe (Pain Scale 7-10) Last Admin: 03/25/22 08:00 Dose: 4 mg Documented by: Ondansetron HCl (Ondansetron Hcl 4 Mg/2 Ml Vial) 4 mg IVPUSH Q8H PRN PRN Reason: Nausea and Vomiting Pharmacy Consult (Consult Rx Perform Med Rec) 1 each MISCELLANE ONCE PRN PRN Reason: Consult order Sertraline HCl (Sertraline Hcl 25 Mg Tablet) 25 mg PO BEDTIME [facility] Last Admin: 03/24/22 21:09 Dose: 25 mg Documented by: Sodium Chloride (0.9 % Sodium Chloride Flush 3 Ml Syringe) 3 ml IVFLUSH QSHIFT [facility] Last Admin: 03/25/22 08:03 Dose: 3 ml Documented by: Spironolactone (Spironolactone 25 Mg Tablet) 50 mg PO DAILY [facility]; Protocol Last Admin: 03/25/22 07:58 Dose: 50 mg Documented by: Torsemide (Torsemide 20 Mg Tablet) 80 mg PO BID [facility]; Protocol Time Spent With Patient Time: Total time spent is greater than 50% in coordination of care (as documented) at patient's floor/unit and/or counseling patient: 45 Progress Note: Quality Stroke Does the patient have a stroke diagnosis?: No Procedures Date of Service Date of Service: 03/25/22
[2022-03-25] MEDS: Magnesium Oxide 400 MG TABLET PO (10:57)
[2022-03-25] MEDS: Torsemide 20 MG TABLET 80 MG PO (10:58)
[2022-03-25 11:28] LABS: Glucose, Whole Blood 158 mg/dL (60-115)
[2022-03-25 11:38] VITALS: PULSE 88; RESP 18; O2SAT 94
--- NOTE | 2022-03-25 14:43 | MHC.CM.PN ---
Male 52 DX CHF left AMA today. [place] [facility] [place]
--- NOTE | 2022-03-25 14:59 | PM.EVENT ---
Event Note Date of Service: 03/25/22 Event Note: Discharge note Discharge diagnosis Acute on chronic systolic heart failure NSVT Summary the patient was Admitted to the hospital for treatment of CHF exacerbation. He was seen and evaluated this morning during the medical rounds and plan was agreed with him. 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 He did not discuss his intention to leave AMA so we can at least have a plan for him. He did not respond to his phone.
== END 2022-03-25 12:00 | disposition left against medical advice (07) | DRG 291 ==
LOC: HO.ED 20:54 → HO.EDOVER 22:17 → HO.IMC 03-24 02:05
PROVIDERS: Physician Assistant Medical; Admitting Provider Internal Medicine; Emergency Provider Emergency Medicine Emergency Medical Services; PCP Internal Medicine; Visit Provider Student in an Organized Health Care Education/Training Program
DX: I11.0 Hypertensive heart disease with heart failure (principal); I50.23 Acute on chronic systolic (congestive) heart failure; I47.1 Supraventricular tachycardia; J44.9 Chronic obstructive pulmonary disease, unspecified; E11.9 Type 2 diabetes mellitus without complications; I25.5 Ischemic cardiomyopathy; Z86.73 Personal history of transient ischemic attack (TIA), and cerebral infarction without residual deficits; Z95.810 Presence of automatic (implantable) cardiac defibrillator; Z20.822 Contact with and (suspected) exposure to COVID-19; Z88.8 Allergy status to other drugs, medicaments and biological substances; Z79.01 Long term (current) use of anticoagulants; Z79.899 Other long term (current) drug therapy
CPT/HCPCS: 36415; 71046; 80048; 80053; 82947; 83735; 83880; 84484; 85025; 87635; 93005; 93970; 94640; 94664; 96374; 96375; 99285; J1940; J2270

== ENCOUNTER 2022-07-11 20:29 | Inpatient (IN) | payer MEDICARE, MEDICAID, SELFPAY ==
--- NOTE | ~2022-07-11 | XR_ITS ---
EXAMINATION: XR CHEST CLINICAL INFORMATION: Chest pain COMPARISON: Chest x-ray 03/23/2022 TECHNIQUE: Frontal view of the chest was obtained. FINDINGS: Unchanged mild blunting of the left costophrenic sulcus, likely pleural thickening versus chronic trace effusion. No consolidation. No pneumothorax. Mild cardiomegaly, unchanged. No evidence pulmonary edema. Left-sided pacer/AICD with lead tip terminating in the right ventricle redemonstrated. No acute osseous injury. XR/XR chest 1V IMPRESSION: No acute pulmonary process.
[2022-07-11 20:31] VITALS: BP 146/77; PULSE 122; RESP 24; TEMP 36.3; O2SAT 100; BMI 34.7
--- NOTE | 2022-07-11 20:36 | ECG_ITS ---
Test Reason : CHEST PAIN Blood Pressure : / mmHG Vent. Rate : 123 BPM Atrial Rate : 123 BPM P-R Int : 160 ms QRS Dur : 090 ms QT Int : 314 ms P-R-T Axes : 060 -45 083 degrees QTc Int : 449 ms Sinus tachycardia Possible Left atrial enlargement Left axis deviation Anterior infarct (cited on or before 05-NOV-2021) Abnormal ECG When compared with ECG of 24-MAR-2022 02:51, Nonspecific T wave abnormality no longer evident in Inferior leads T wave inversion no longer evident in Anterolateral leads Referred By: Generic ED Physician Electronically Signed By:TRACI HARTLEY
--- NOTE | 2022-07-11 21:03 | ED.CHESTPAIN ---
HPI - Chest Pain General Chief Complaint: Chest Pain Stated Complaint: chest pain Time Seen by Provider: 07/11/22 21:03 Source: patient Mode of arrival: ambulatory Limitations: no limitations History of Present Illness HPI narrative: Patient 52 years old with history of nonischemic cardiomyopathy with ejection fraction 15-20% status post ICD, hypertension, on Eliquis with history of nonsustained ventricular tachycardia and VFib , obstructive sleep apnea on CPAP on heavy doses of torsemide came here for increased leg swelling for last few days cane about 15 lb with increased shortness of breath and chest tightness feeling. Patient been admitted multiple times for similar reasons fairly compliant to the medications and urinating good amount. About a month ago his CPAP machine broke and not been using CPAP machine since and gradually his symptoms are getting worse with increased leg swelling patient been coughing whenever he takes a deep breath with chest discomfort Related Data Home Medications Medication Instructions Recorded Confirmed albuterol sulfate 90 mcg/actuation 2 puff inhalation Q4-6H 06/14/21 03/23/22 aerosol inhaler atorvastatin 40 mg tablet 40 mg PO DAILY 06/14/21 03/23/22 hydrocodone 10 mg-acetaminophen 1 tab PO Q4-6H PRN pain 06/14/21 03/23/22 325 mg tablet sertraline 25 mg tablet 25 mg PO BEDTIME 06/14/21 03/23/22 metolazone 2.5 mg tablet 2.5 mg PO QAM PRN weight gain 02/04/22 03/23/22 torsemide 20 mg tablet 40 mg PO SUTHFRSA@0900,2100 02/04/22 03/23/22 dapagliflozin 10 mg tablet 10 mg PO MOWEFR 03/23/22 03/23/22 (Farxiga) magnesium gluconate 27 mg 1 tab DAILY 03/23/22 03/23/22 magnesium (500 mg) tablet (Mag-G) sulfamethoxazole 800 1 tab PO Q12H 03/23/22 03/23/22 mg-trimethoprim 160 mg tablet torsemide 20 mg tablet 80 mg PO MOTUWE@0900,2100 03/23/22 03/23/22 Previous Rx's Medication Instructions Recorded apixaban 5 mg tablet (Eliquis) 5 mg PO BID@0600,1800 #60 tabs 06/18/21 carvedilol 3.125 mg tablet (Coreg) 3.125 mg PO BID #60 tabs 06/18/21 spironolactone 50 mg tablet 50 mg PO DAILY #30 tabs 02/15/22 amiodarone 200 mg tablet 200 mg PO DAILY #30 tabs 03/21/22 losartan 50 mg tablet 50 mg PO DAILY #90 tabs 04/15/22 Allergies Allergy/AdvReac Type Severity Reaction Status Date / Time sacubitril [From Entresto] AdvReac Rash Verified 03/05/22 13:12 valsartan [From Entresto] AdvReac Rash Verified 03/05/22 13:12 Review of Systems Review of Systems: Yes all other systems are reviewed and are negative [facility] Past Medical History Medical History Acute on chronic systolic heart failure Artificial cardiac pacemaker Back injuries Cardiomyopathy CVA (cerebral vascular accident) History of COPD HTN (hypertension) ICD (implantable cardioverter-defibrillator) in place NSVT (nonsustained ventricular tachycardia) Surgical History Hx of cardiac cath (~08/2015) Family History Family History Father Prostate cancer Mother No problems noted. Social History Social History Household Members: None Housing: House Do you presently have visiting nurse or other home services: No Unable to assess alcohol history related to: Unknown Alcohol intake: former Patient Tobacco Use Status: Tobacco use Unknown Tobacco use type: Cigarette Cigarettes Per Day: 5 Advance Directives: No Advance Directives Information Provided: No service: No Current occupational status: disabled Physical Exam Vital Signs: Vital Signs: Last Vital Signs Temp 97.8 F 07/11/22 21:06 Pulse 102 H 07/12/22 00:02 Resp 20 07/12/22 00:02 BP 120/80 07/11/22 23:08 Pulse Ox 92 07/12/22 00:02 O2 Del Method 07/12/22 00:02 BMI result Body Mass Index 34.7 Appearance: Alert. Oriented X3. No acute distress. Eyes: No pallor or icterus ENT: Pharynx normal. Oral Mucosa moist Neck: Normal inspection. Neck supple. CVS: Normal heart rate and rhythm. Pulses normal. Respiratory: No respiratory distress. Equal air entry bilateral, bilateral posterior basal crackles Abdomen: Soft and nontender. Bowel sounds are present, no mass palpable, no CVA tenderness Skin: Skin warm and dry. Normal skin color. Normal skin turgor. Extremities: 3+ lower extremity edema. No calf tenderness Neuro: Oriented X 3. No motor deficit. No sensory deficit.No cerebellar signs , cranial nerves II-XII intact MDM - Chest Pain MDM Narrative Medical decision making narrative: 2300 : Patient with fluid overload with worsening of CHF with exertional dyspnea. Will admit patient for IV diuresis Differential Diagnosis Differential diagnosis: Likely atypical chest pain Differential diagnosis: Congestive heart failure acute on chronic Medical Records Data Attestation: I reviewed the patient's medical records. Lab Data Attestation: I reviewed the patient's lab results. Result diagrams: 07/11/22 21:06 07/11/22 21:06 Labs: Lab Results 07/11/22 07/11/22 07/11/22 Range/Units 21:06 21:06 21:06 WBC 7.2 (4.8-10.8) X10*3/uL RBC 4.39 L (4.60-5.80) X10*6/uL Hgb 13.3 L (14.0-18.0) g/dl Hct 40.5 L (42.0-52.0) % MCV 92.3 (80.0-98.0) fL MCH 30.3 (27.0-33.0) pg MCHC 32.8 (31.0-36.0) g/dl RDW 16.9 H (11.0-16.0) % Plt Count 254 (160-400) X10*3/uL MPV 8.8 L (9.4-12.4) fL Immature Gran % (Auto) 0.4 (0.0-0.4) % Neut % (Auto) 65.8 (45-73) % Lymph % (Auto) 22.2 (20-40) % [place] % (Auto) 6.6 (2-11) % Eos % (Auto) 3.5 (0-4) % Baso % (Auto) 1.5 (0-2) % Lymph # (Auto) 1.6 (1.2-4.9) X10*3/uL [place] # (Auto) 0.5 (0.1-1.2) X10*3/uL Eos # (Auto) 0.3 (0.0-0.4) X10*3/uL Baso # (Auto) 0.1 (0.0-0.2) X10*3/uL Abs Immat Gran (auto) 0.03 (0.00-0.03) X10*3/uL Absolute Neuts (auto) 4.8 (2.0-8.3) x10*3/uL Absolute Nucleated RBC 0.000 (0.0-0.012) X10*3/uL Nucleated RBC % (auto) 0.0 (0.0-0.2) /100WBC Sodium 138 (135-145) mmol/L Potassium 3.3 (3.3-5.1) mmol/L Chloride 98 (96-108) mmol/L Carbon Dioxide 27 (22-29) mmol/L Anion Gap 16 (12-20) BUN 33 H D (9-16) mg/dL Creatinine 1.46 H (0.5-1.4) mg/dL Estim Creat Clear Calc 68.2 Estimated GFR 51 Random Glucose 124 H (60-115) mg/dL Calcium 8.6 D (8.4-10.2) mg/dL Total Bilirubin 0.9 (0.0-1.0) mg/dL Direct Bilirubin 0.6 H (0.0-0.5) mg/dL AST 19 (5-37) U/L ALT 13 (0-40) U/L Alkaline Phosphatase 98 (39-117) U/L Troponin I High Sens (<3.5-35.0) ng/L B-Natriuretic Peptide (<100) pg/mL Total Protein 7.4 (6.5-8.0) g/dL Albumin 3.9 (3.5-5.0) g/dL COVID-19 ([facility]) Negative (Negative) COVID-19 Clin Com See Note 07/11/22 Range/Units 21:06 WBC (4.8-10.8) X10*3/uL RBC (4.60-5.80) X10*6/uL Hgb (14.0-18.0) g/dl Hct (42.0-52.0) % MCV (80.0-98.0) fL MCH (27.0-33.0) pg MCHC (31.0-36.0) g/dl RDW (11.0-16.0) % Plt Count (160-400) X10*3/uL MPV (9.4-12.4) fL Immature Gran % (Auto) (0.0-0.4) % Neut % (Auto) (45-73) % Lymph % (Auto) (20-40) % [place] % (Auto) (2-11) % Eos % (Auto) (0-4) % Baso % (Auto) (0-2) % Lymph # (Auto) (1.2-4.9) X10*3/uL [place] # (Auto) (0.1-1.2) X10*3/uL Eos # (Auto) (0.0-0.4) X10*3/uL Baso # (Auto) (0.0-0.2) X10*3/uL Abs Immat Gran (auto) (0.00-0.03) X10*3/uL Absolute Neuts (auto) (2.0-8.3) x10*3/uL Absolute Nucleated RBC (0.0-0.012) X10*3/uL Nucleated RBC % (auto) (0.0-0.2) /100WBC Sodium (135-145) mmol/L Potassium (3.3-5.1) mmol/L Chloride (96-108) mmol/L Carbon Dioxide (22-29) mmol/L Anion Gap (12-20) BUN (9-16) mg/dL Creatinine (0.5-1.4) mg/dL Estim Creat Clear Calc Estimated GFR Random Glucose (60-115) mg/dL Calcium (8.4-10.2) mg/dL Total Bilirubin (0.0-1.0) mg/dL Direct Bilirubin (0.0-0.5) mg/dL AST (5-37) U/L ALT (0-40) U/L Alkaline Phosphatase (39-117) U/L Troponin I High Sens 22.6 D (<3.5-35.0) ng/L B-Natriuretic Peptide 1370 H (<100) pg/mL Total Protein (6.5-8.0) g/dL Albumin (3.5-5.0) g/dL COVID-19 ([facility]) (Negative) COVID-19 Clin Com ECG Data ECG #1: Interpretation: Sinus tachycardia with heart rate 123 beats per minute left axis deviation poor progression of R-wave no acute ischemia Discharge Plan Discharge Clinical Impression: Acute on chronic HFrEF (heart failure with reduced ejection fraction) Patient Disposition: Admitted As Inpatient
[2022-07-11 21:06] VITALS: BP 126/92; PULSE 116; TEMP 36.6; O2SAT 98
[2022-07-11 21:12] LABS: MANUAL DIFF FLAG NO
[2022-07-11 21:16] LABS: Basophils Absolute Auto 0.1 X10*3/uL (0.0-0.2); Basophils Percent Auto 1.5 % (0-2); Eosinophils Absolute Auto 0.3 X10*3/uL (0.0-0.4); Eosinophils Percent Auto 3.5 % (0-4); Hematocrit 40.5 % (42.0-52.0); Hemoglobin 13.3 g/dl (14.0-18.0); Imm Gran Abs Auto 0.03 X10*3/uL (0.00-0.03); Imm Gran Pct Auto 0.4 % (0.0-0.4); Lymphocytes Absolute Auto 1.6 X10*3/uL (1.2-4.9); Lymphocytes Percent Auto 22.2 % (20-40); Mean Corpuscular HGB Conc 32.8 g/dl (31.0-36.0); Mean Corpuscular Hemoglobin 30.3 pg (27.0-33.0); Mean Corpuscular Volume 92.3 fL (80.0-98.0); Mean Platelet Volume 8.8 fL (9.4-12.4); Monocytes Absolute Auto 0.5 X10*3/uL (0.1-1.2); Monocytes Percent Auto 6.6 % (2-11); Neutrophils Absolute Auto 4.8 x10*3/uL (2.0-8.3); Neutrophils Percent Auto 65.8 % (45-73); Platelet Count 254 X10*3/uL (160-400); Red Blood Count 4.39 X10*6/uL (4.60-5.80); Red Cell Distribution Width 16.9 % (11.0-16.0); White Blood Count 7.2 X10*3/uL (4.8-10.8)
[2022-07-11] MEDS: Furosemide 40 MG/4 ML VIAL IVPUSH (21:26)
[2022-07-11 21:28] LABS: Anion Gap 16 (12-20); Blood Urea Nitrogen 33 mg/dL (9-16); Calcium 8.6 mg/dL (8.4-10.2); Carbon Dioxide 27 mmol/L (22-29); Chloride 98 mmol/L (96-108); Creatinine Clr Calc Pharmacy 68.2; Estimated Glomerular Filt Rate 51; Glucose Random 124 mg/dL (60-115); Potassium 3.3 mmol/L (3.3-5.1); Sodium 138 mmol/L (135-145)
[2022-07-11 21:29] LABS: COVID-19 Test Negative (Negative)
[2022-07-11 21:34] LABS: Troponin-I High Sensitivity 22.6 ng/L (<3.5-35.0)
[2022-07-11 21:40] LABS: Alanine Aminotransferase 13 U/L (0-40); Albumin Level 3.9 g/dL (3.5-5.0); Alkaline Phosphatase 98 U/L (39-117); Aspartate Amino Transferase 19 U/L (5-37); Bilirubin Direct 0.6 mg/dL (0.0-0.5); Bilirubin Total 0.9 mg/dL (0.0-1.0); Total Protein 7.4 g/dL (6.5-8.0)
[2022-07-11 21:56] LABS: B Type Natriuretic Peptide 1370 pg/mL (<100)
[2022-07-11] MEDS: ondansetron HCL 4 MG/2 ML VIAL IVPUSH (23:06)
[2022-07-11] MEDS: Morphine Sulfate 4 MG/ML CARTRIDGE IVPUSH (23:06)
[2022-07-11 23:08] VITALS: BP 120/80; PULSE 105; RESP 22; O2SAT 96
[2022-07-12 00:02] VITALS: PULSE 102; RESP 20; O2SAT 92
--- NOTE | 2022-07-12 00:09 | P.HPHOSP_ITS ---
History of Present Illness Date of Service: 07/12/22 Chief Complaint: Leg swelling 52-year-old male with past medical history of CVA, nonischemic cardiomyopathy with an ejection fraction of 15 to 20%, COPD, and SVT, HTN, who presents to the hospital with complaints of significant leg swelling, shortness of breath, dry cough, as well as orthopnea and PND. He reports that his symptoms started few days ago but go worse today. He denies any chest pain although he reports pleuritic pain with cough, denies any abdominal pain nausea or vomiting, no diarrhea constipation, no urinary symptoms. No headache or change in vision, no fever chills. On arrival to the ED patient found to have heart rate of 120s, satting 100% on room air Labs are significant for WBC of 7.2, hemoglobin 13.3, hematocrit 40.5, creatin ine of 1.46 with a baseline around 1.2, BNP of 1370, troponin of 22 that increase 27, COVID-19 negative Chest x-ray showed no acute pulmonary process Patient has history of previous admissions to the hospital for CHF exacerbation due to possible poor compliance with medication. Although he reports compliance with his torsemide at this time but reports eating low-sodium ham and cheese over the past few days due to the hot weather and ability to cook. Patient given Lasix and will be admitted for further management Review of Systems Review of Systems: Yes all other systems are reviewed and are negative [facility] Medical History Acute on chronic systolic heart failure Artificial cardiac pacemaker Back injuries Cardiomyopathy CVA (cerebral vascular accident) History of COPD HTN (hypertension) ICD (implantable cardioverter-defibrillator) in place NSVT (nonsustained ventricular tachycardia) Family History Father Prostate cancer Mother No problems noted. Surgical History Hx of cardiac cath (~08/2015) Social History Household Members: None Housing: House Do you presently have visiting nurse or other home services: No Unable to assess alcohol history related to: Unknown Alcohol intake: former Patient Tobacco Use Status: Tobacco use Unknown Tobacco use type: Cigarette Cigarettes Per Day: 5 Advance Directives: No Advance Directives Information Provided: No service: No Current occupational status: disabled Meds Allergies Allergy/AdvReac Type Severity Reaction Status Date / Time sacubitril [From Entresto] AdvReac Rash Verified 03/05/22 13:12 valsartan [From Entresto] AdvReac Rash Verified 03/05/22 13:12 Active Medications: Current Medications Acetaminophen (Acetaminophen 325 Mg Tablet) 650 mg PO Q6H PRN PRN Reason: Pain, Mild (Pain Scale 1-3) Docusate Sodium (Docusate Sodium 100 Mg Capsule) 100 mg PO DAILY PRN PRN Reason: Constipation Furosemide (Furosemide 100 Mg/10 Ml Vial) 60 mg IVPUSH BID@0900,1800 BETTINA; Protocol Ondansetron HCl (Ondansetron Hcl 4 Mg/2 Ml Vial) 4 mg IVPUSH Q8H PRN PRN Reason: Nausea and Vomiting Sodium Chloride (0.9 % Sodium Chloride Flush 3 Ml Syringe) 3 ml [facility] Home Medications Medication Instructions Recorded Confirmed Last Taken Type albuterol sulfate 90 mcg/actuation 2 puff inhalation Q4-6H 06/14/21 07/12/22 09/06/21 History aerosol inhaler atorvastatin 40 mg tablet 40 mg PO DAILY 06/14/21 07/12/22 03/23/22 History hydrocodone 10 mg-acetaminophen 1 tab PO Q4-6H PRN pain 06/14/21 07/12/22 03/23/22 History 325 mg tablet sertraline 25 mg tablet 25 mg PO BEDTIME 06/14/21 07/12/22 03/22/22 History metolazone 2.5 mg tablet 2.5 mg PO QAM PRN weight gain 02/04/22 07/12/22 Unknown History torsemide 20 mg tablet 40 mg PO SUTHFRSA@0900,2100 02/04/22 03/23/22 03/23/22 History dapagliflozin 10 mg tablet 10 mg PO MOWEFR 03/23/22 07/12/22 03/23/22 History (Farxiga) magnesium gluconate 27 mg 1 tab DAILY 03/23/22 07/12/22 03/23/22 History magnesium (500 mg) tablet (Mag-G) sulfamethoxazole 800 1 tab PO Q12H 03/23/22 03/23/22 03/23/22 History mg-trimethoprim 160 mg tablet torsemide 20 mg tablet 80 mg PO DENI@0900,2100 03/23/22 07/12/22 03/20/22 History Physical Exam Vital Signs and Narrative: Vital Signs: Last Vital Signs Temp 97.8 F 07/11/22 21:06 Pulse 105 H 07/11/22 23:08 Resp 22 H 07/11/22 23:08 BP 120/80 07/11/22 23:08 Pulse Ox 96 07/11/22 23:08 O2 Del Method 07/11/22 23:08 BMI result Body Mass Index 34.7 Const: General: cooperative and no acute distress Orientation/consciousness: patient oriented x3 Eyes: General: appearance normal, both eyes and all related structures Pupils: Equal, round and reactive pupils present Resp: Effort & Inspection: normal respiratory effort Auscultation: clear to auscultation bilaterally Cardio: Rate: regular rate Rhythm: regular rhythm GI: Palpation (GI): Soft to palpation Auscultation: normal bowel sounds Skin: General skin exam: no rashes or lesions noted Neuro: General: patient oriented x3 Cranial nerves: Yes Equal, round and reactive pupils present Cognition (Neuro): normal cognition Extrem: Other: 2+ pitting edema bilaterally General: Yes normal to inspection Results Labs CBC and Chem 7: 07/11/22 21:06 07/11/22 21:06 Labs: Laboratory Results - last 24 hr 07/11/22 07/11/22 07/11/22 21:06 21:06 21:06 MCV 92.3 MCH 30.3 MCHC 32.8 RDW 16.9 H Plt Count 254 MPV 8.8 L Immature Gran % (Auto) 0.4 Neut % (Auto) 65.8 Lymph % (Auto) 22.2 [place] % (Auto) 6.6 Eos % (Auto) 3.5 Baso % (Auto) 1.5 Lymph # (Auto) 1.6 [place] # (Auto) 0.5 Eos # (Auto) 0.3 Baso # (Auto) 0.1 Abs Immat Gran (auto) 0.03 Absolute Neuts (auto) 4.8 Absolute Nucleated RBC 0.000 Nucleated RBC % (auto) 0.0 Anion Gap 16 Estim Creat Clear Calc 68.2 Estimated GFR 51 Random Glucose 124 H Calcium 8.6 D Total Bilirubin 0.9 Direct Bilirubin 0.6 H AST 19 ALT 13 Alkaline Phosphatase 98 B-Natriuretic Peptide Total Protein 7.4 Albumin 3.9 COVID-19 ([facility]) Negative COVID-19 Clin Com See Note 07/11/22 21:06 MCV MCH MCHC RDW Plt Count MPV Immature Gran % (Auto) Neut % (Auto) Lymph % (Auto) [place] % (Auto) Eos % (Auto) Baso % (Auto) Lymph # (Auto) [place] # (Auto) Eos # (Auto) Baso # (Auto) Abs Immat Gran (auto) Absolute Neuts (auto) Absolute Nucleated RBC Nucleated RBC % (auto) Anion Gap Estim Creat Clear Calc Estimated GFR Random Glucose Calcium Total Bilirubin Direct Bilirubin AST ALT Alkaline Phosphatase B-Natriuretic Peptide 1370 H Total Protein Albumin COVID-19 ([facility]) COVID-19 Clin Com Imaging Radiologist's Impressions: Impressions Chest X-Ray 07/11/22 21:05 IMPRESSION: No acute pulmonary process. Assessment and Plan (1) Acute systolic (congestive) heart failure: Status: Acute Plan 52-year-old male with past medical history of nonischemic cardiomyopathy with an ejection fraction of 15-20% presents to the hospital with acute CHF exacerbation # CHF exacerbation - likely due to high sodium intake, patient does have history of noncompliance with medication but reports compliance at this time - will treat with high-dose IV Lasix may start him on IV drip as he has been on Lasix drip in the past -low-sodium diet, strict I&O, daily weight - cardiology consult - continue amiodarone and Coreg # pleuritic chest pain -likely secondary to cough - no significant elevation in troponin - supportive care # history of CVA - statin as well as Eliquis # attention Stable, continue home antihypertensives DVT prophylaxis: Eliquis Given acute CHF exacerbation need for IV Lasix patient will require a minimum 2 night hospital stay for further management and evaluation Quality Stroke Does the patient have a stroke diagnosis?: No VTE Prior VTE?: No VTE Risk Level:: Medical - moderate - high VTE Device Contraindication: Treatment Not Indicated VTE Drug Contraindication: N/A - Med Ordered
[2022-07-12] MEDS: Morphine Sulfate 4 MG/ML CARTRIDGE IVPUSH (02:33)
[2022-07-12 02:34] VITALS: BP 108/74; PULSE 101; RESP 18; O2SAT 94
--- NOTE | 2022-07-12 05:31 | PC.NURSE ---
patient placed on 2L NC for O2 sats dropping to mid 80s room air when sleeping. pt states he used to use cpap at night but hasnt in about one month. placed on 2L NC good relief, pt maintaining O2 sats 94-100% when sleeping.
[2022-07-12 06:04] VITALS: BP 104/75; PULSE 102; RESP 20; O2SAT 97
[2022-07-12 06:49] LABS: MANUAL DIFF FLAG NO
[2022-07-12 07:00] LABS: Basophils Absolute Auto 0.1 X10*3/uL (0.0-0.2); Basophils Percent Auto 1.6 % (0-2); Eosinophils Absolute Auto 0.3 X10*3/uL (0.0-0.4); Eosinophils Percent Auto 4.1 % (0-4); Hematocrit 41.6 % (42.0-52.0); Hemoglobin 13.1 g/dl (14.0-18.0); Imm Gran Abs Auto 0.03 X10*3/uL (0.00-0.03); Imm Gran Pct Auto 0.4 % (0.0-0.4); Lymphocytes Absolute Auto 1.8 X10*3/uL (1.2-4.9); Lymphocytes Percent Auto 25.5 % (20-40); Mean Corpuscular HGB Conc 31.5 g/dl (31.0-36.0); Mean Corpuscular Hemoglobin 29.6 pg (27.0-33.0); Mean Corpuscular Volume 93.9 fL (80.0-98.0); Mean Platelet Volume 9.1 fL (9.4-12.4); Monocytes Absolute Auto 0.5 X10*3/uL (0.1-1.2); Neutrophils Absolute Auto 4.2 x10*3/uL (2.0-8.3); Neutrophils Percent Auto 61.4 % (45-73); Platelet Count 277 X10*3/uL (160-400); Red Blood Count 4.43 X10*6/uL (4.60-5.80); Red Cell Distribution Width 17.2 % (11.0-16.0); White Blood Count 6.9 X10*3/uL (4.8-10.8)
[2022-07-12 07:34] LABS: Anion Gap 18 (12-20); Blood Urea Nitrogen 36 mg/dL (9-16); Calcium 8.8 mg/dL (8.4-10.2); Carbon Dioxide 26 mmol/L (22-29); Chloride 99 mmol/L (96-108); Creatinine Clr Calc Pharmacy 67.7; Estimated Glomerular Filt Rate 50; Glucose Random 125 mg/dL (60-115); Potassium 3.5 mmol/L (3.3-5.1); Sodium 139 mmol/L (135-145)
--- NOTE | 2022-07-12 07:41 | PC.NURSE ---
pt left [facility] due to family emergency; his elderly mom is stuck in with a flat tire and she cannot call anyone for help. Per pt, one brother in [place] who cannot help and no as he passed years ago. IV removed along with clockmaker. Informed Hospitalist. Charge Nurse and Stephenie aware. [facility] paperwork filled out.
--- NOTE | 2022-07-24 16:48 | PM.EVENT ---
Event Note Date of Service: 07/24/22 Event Note: The patient signed out of the ED AGAINST MEDICAL ADVICE on 07/12/22 in the morning after he was admitted but before I saw him on rounds.
== END 2022-07-12 07:45 | disposition left against medical advice (07) | DRG 291 ==
LOC: HO.ED 07-12 00:16 → HO.EDOVER 07-12 01:01
PROVIDERS: Admitting Provider Internal Medicine; Emergency Provider Internal Medicine; PCP Internal Medicine; Visit Provider Family Medicine
DX: I11.0 Hypertensive heart disease with heart failure (principal); I50.23 Acute on chronic systolic (congestive) heart failure; I47.1 Supraventricular tachycardia; J44.9 Chronic obstructive pulmonary disease, unspecified; I42.8 Other cardiomyopathies; Z71.3 Dietary counseling and surveillance; Z20.822 Contact with and (suspected) exposure to COVID-19; Z86.73 Personal history of transient ischemic attack (TIA), and cerebral infarction without residual deficits; Z95.810 Presence of automatic (implantable) cardiac defibrillator; Z88.0 Allergy status to penicillin; Z79.01 Long term (current) use of anticoagulants; Z79.899 Other long term (current) drug therapy
CPT/HCPCS: 36415; 71045; 80048; 80076; 83880; 84484; 85025; 87635; 93005; 96374; 96375; 99284; 99285; J1940; J2270; J2405

== ENCOUNTER 2022-08-06 21:50 | Inpatient (IN) | payer MEDICARE, MEDICAID, SELFPAY ==
--- NOTE | ~2022-08-06 | XR_ITS ---
EXAMINATION: XR CHEST CLINICAL INFORMATION: Chest pain COMPARISON: 07/11/2022 TECHNIQUE: Frontal view of the chest was obtained. FINDINGS: Again seen is mild cardiomegaly and a left chest wall pacer/AICD along with a CardioMEMS. Continued Left basilar atelectasis is present. No evidence of CHF. No infiltrates, effusions or lung masses are seen. XR/XR chest 1V IMPRESSION: No acute intrathoracic disease
--- NOTE | ~2022-08-06 | CT_ITS ---
EXAM: NONCONTRAST CT OF THE CHEST; NONCONTRAST CT OF THE ABDOMEN AND PELVIS INDICATION: Shortness of breath, abdominal distention and diffuse tenderness COMPARISON: 05/09/2021 TECHNIQUE: No IV contrast was utilized. Multidetector helical imaging was performed through the chest, abdomen, and pelvis. Coronal and sagittal reformatted images were created at the technologist workstation. DOSE LOWERING TECHNIQUES: This CT examination was performed using dose optimization techniques as appropriate, variously including the following: - Automated exposure control - Adjustment of mA and/or kV according to patient size (this includes techniques or standardized protocols for targeted exams were dose is matched to indication/reason for exam; i.e. extremities or head) - Use of iterative reconstruction technique DLP: 1135 mGy-cm FINDINGS: Chest: There is streaky curvilinear atelectasis in the left lower lobe. No additional consolidation. Mild emphysema redemonstrated. There are multiple scattered bilateral lung nodules measuring up to 5 mm with upper lobe predominance which appear new since 05/09/2021. No pneumothorax or pleural effusions. Visualized thyroid gland is grossly unremarkable. There are multiple mildly enlarged lymph nodes throughout the mediastinum which appear overall mildly increased in size from prior. There is cardiomegaly without pericardial effusion. Coronary artery calcifications are present. Mild scattered calcifications along the aorta. Left-sided AICD lead tip extends to the right ventricle. No axillary lymphadenopathy is present. Scattered endplate osteophytes are present throughout the spine. Abdomen/Pelvis: The liver appears mildly enlarged, without intrahepatic biliary ductal dilatation. Status post cholecystectomy. There is partial fatty atrophy of the pancreas. The spleen is unremarkable. Redemonstrated low-density left adrenal nodule most consistent with an adenoma. Right adrenal gland is unremarkable. The unenhanced kidneys are unremarkable without hydronephrosis. No obstructing renal or ureteral calculi are present. The urinary bladder is unremarkable. The prostate and seminal vesicles are unremarkable. No evidence of bowel obstruction. Assessment for wall thickening in some segments of the colon is limited due to luminal collapse, though no significant pericolonic stranding is seen to strongly suggest a colitis. The appendix is unremarkable. Small amount of free fluid is present in the upper abdomen. No free air is identified. Moderate atherosclerotic calcification. No retroperitoneal or pelvic lymphadenopathy is seen. Multilevel degenerative changes in the spine. CT/CT abdomen pelvis wo IV con IMPRESSION: 1. Multiple scattered small bilateral lung nodules with upper lobe predominance, new since 05/09/2021. Mediastinal lymphadenopathy also appears increased compared to prior. Findings could reflect an infectious/inflammatory etiology, though alternatively metastatic disease could also have this appearance. Correlation with patient history is recommended. If an inflammatory etiology is suspected, follow-up CT in approximately 3 months is advised to assess for resolution. 2. Cardiomegaly. 3. Small amount of free fluid in the upper abdomen.
--- NOTE | 2022-08-06 21:54 | ECG_ITS ---
Test Reason : CHEST PAIN Blood Pressure : / mmHG Vent. Rate : 111 BPM Atrial Rate : 111 BPM P-R Int : 160 ms QRS Dur : 092 ms QT Int : 356 ms P-R-T Axes : 070 -45 094 degrees QTc Int : 484 ms Sinus tachycardia with occasional Premature ventricular complexes Possible Left atrial enlargement Left axis deviation Septal infarct (cited on or before 05-NOV-2021) ST & T wave abnormality, consider lateral ischemia Abnormal ECG When compared with ECG of 11-JUL-2022 20:31, Premature ventricular complexes are now Present T wave inversion now evident in Lateral leads Referred By: Generic ED Physician Electronically Signed By:MEHDI GARCIA
[2022-08-06 21:56] VITALS: BP 118/81; PULSE 114; RESP 98; TEMP 36.4; O2SAT 98; BMI 33.6
[2022-08-06 22:19] LABS: MANUAL DIFF FLAG NO
[2022-08-06 22:21] LABS: Basophils Absolute Auto 0.1 X10*3/uL (0.0-0.2); Basophils Percent Auto 0.8 % (0-2); Eosinophils Absolute Auto 0.2 X10*3/uL (0.0-0.4); Hematocrit 40.6 % (42.0-52.0); Hemoglobin 13.2 g/dl (14.0-18.0); Imm Gran Abs Auto 0.03 X10*3/uL (0.00-0.03); Imm Gran Pct Auto 0.4 % (0.0-0.4); Lymphocytes Absolute Auto 1.1 X10*3/uL (1.2-4.9); Lymphocytes Percent Auto 13.4 % (20-40); Mean Corpuscular HGB Conc 32.5 g/dl (31.0-36.0); Mean Corpuscular Volume 92.3 fL (80.0-98.0); Mean Platelet Volume 9.5 fL (9.4-12.4); Monocytes Absolute Auto 0.5 X10*3/uL (0.1-1.2); Monocytes Percent Auto 6.4 % (2-11); Neutrophils Absolute Auto 6.5 x10*3/uL (2.0-8.3); Platelet Count 265 X10*3/uL (160-400); Red Cell Distribution Width 17.5 % (11.0-16.0); White Blood Count 8.4 X10*3/uL (4.8-10.8)
[2022-08-06 22:34] LABS: Anion Gap 18 (12-20); Blood Urea Nitrogen 22 mg/dL (9-16); Calcium 8.6 mg/dL (8.4-10.2); Carbon Dioxide 27 mmol/L (22-29); Chloride 98 mmol/L (96-108); Estimated Glomerular Filt Rate 52; Glucose Random 179 mg/dL (60-115); Potassium 3.3 mmol/L (3.3-5.1); Sodium 140 mmol/L (135-145)
[2022-08-06 22:42] LABS: Troponin-I High Sensitivity 20.7 ng/L (<3.5-35.0)
[2022-08-06 22:47] VITALS: BP 125/84; PULSE 108; RESP 22; TEMP 36.7; O2SAT 96
--- NOTE | 2022-08-06 22:54 | PC.NURSE ---
Pt c/o chest pain that began a few days ago that has gotten increasingly worse, sob, orthopnea, weakness; h/o HF, pt states he hasn't been urinating as often as he usually does
[2022-08-06 23:01] LABS: COVID-19 Test Invalid (Negative)
[2022-08-06 23:25] LABS: B Type Natriuretic Peptide 2120 pg/mL (<100)
--- NOTE | 2022-08-06 23:27 | ED_ITS ---
HPI - Chest Pain General Chief Complaint: Chest Pain Stated Complaint: chest pain, trouble breathing Time Seen by Provider: 08/06/22 22:46 Source: patient and family Mode of arrival: ambulatory History of Present Illness HPI narrative: 52-year-old male with history of CHF w/ EF 10-15%, s/p AICD, afib on Eliquis, anxiety, COPD, hypertension, TYRONE on CPAP, chronic pain on chronic opiates who is presenting with chest pain, shortness of breath, and cough since yesterday. Patient reports decreased appetite and he has been drinking more water however his urine is darker in color. States his chest pain is nonradiating, constant, reproducible, worse with coughing. Reports using home nebulizer today with no relief. He does report taking Lasix and all of his other medications as prescribed. Patient also reports orthopnea, in that he was sleeping in his recliner last night when he woke up on the ground with the recliner on top of hi m. Denies headache, trauma from fall. Denies nausea, vomiting, diarrhea, dizziness. patient reports smoking pack of cigarettes per week. MD complaint: chest pain Onset (ago): day(s) (1) Timing of current episode: constant Prior episodes: Yes Pain location: left chest and right chest Pain radiation: none Severity: moderate Quality: tightness and aching Relieving factors: nothing Exacerbating factors: palpation and other (coughing) Context: recent illness Associated symptoms: dyspnea and cough Treatment prior to arrival: other (nebulizer treatment) Risk Factors Coronary artery disease risk factors: smoking history, hyperlipidemia and hypertension Thoracic aortic dissection risk factors: none Related Data Home Medications Medication Instructions Recorded Confirmed albuterol sulfate 90 mcg/actuation 2 puff inhalation Q4-6H 06/14/21 07/12/22 aerosol inhaler atorvastatin 40 mg tablet 40 mg PO DAILY 06/14/21 07/12/22 hydrocodone 10 mg-acetaminophen 1 tab PO Q4-6H PRN pain 06/14/21 07/12/22 325 mg tablet sertraline 25 mg tablet 25 mg PO BEDTIME 06/14/21 07/12/22 metolazone 2.5 mg tablet 2.5 mg PO QAM PRN weight gain 02/04/22 07/12/22 dapagliflozin 10 mg tablet 10 mg PO MOWEFR 03/23/22 07/12/22 (Farxiga) magnesium gluconate 27 mg 1 tab DAILY 03/23/22 07/12/22 magnesium (500 mg) tablet (Mag-G) bupropion HCl 150 mg 24 hr tablet, 1 tab PO QAM 07/12/22 07/12/22 extended release ipratropium 0.5 mg-albuterol 3 mg 1 amp inhalation 07/12/22 (2.5 mg base)/3 mL nebulization soln torsemide 20 mg tablet 3 tab PO BID 07/12/22 07/12/22 Previous Rx's Medication Instructions Recorded apixaban 5 mg tablet (Eliquis) 5 mg PO BID@0600,1800 #60 tabs 06/18/21 carvedilol 3.125 mg tablet (Coreg) 3.125 mg PO BID #60 tabs 06/18/21 spironolactone 50 mg tablet 50 mg PO DAILY #30 tabs 02/15/22 losartan 50 mg tablet 50 mg PO DAILY #90 tabs 04/15/22 amiodarone 200 mg tablet 200 mg PO QAM 90 days #90 tabs 07/16/22 Allergies Allergy/AdvReac Type Severity Reaction Status Date / Time sacubitril [From Entresto] AdvReac Rash Verified 08/06/22 21:54 valsartan [From Entresto] AdvReac Rash Verified 03/05/22 13:12 Review of Systems Review of Systems: Constitutional: +fatigue, No Fever, No Chills ENT/Mouth: No sore throat, No Rhinorrhea, No Swallowing Difficulty Eyes: No Eye Pain, No Swelling, No Redness Cardiovascular: + Chest Pain, + SOB, + Orthopnea, No Edema Respiratory: + Cough, No Sputum, No Wheezing, + dyspnea Gastrointestinal: No Nausea, No Vomiting, No Diarrhea, No abdominal Pain, No Hematochezia, No Melena Genitourinary:+dark urine, No Dysuria, No Urinary Frequency, No Hematuria Musculoskeletal: No joint pain, No Myalgias Skin: No Skin Lesions, No rash Neuro: No Weakness, No Numbness, No Dizziness, No Headache Psych: No Anxiety/Panic, No Depression Heme/Lymph: No Bruising, No Lymphadenopathy Endocrine: No Polyuria, No Polydipsia PMFSH Past Medical History Medical History Acute on chronic systolic heart failure Artificial cardiac pacemaker Back injuries Cardiomyopathy CVA (cerebral vascular accident) History of COPD HTN (hypertension) ICD (implantable cardioverter-defibrillator) in place NSVT (nonsustained ventricular tachycardia) Surgical History Hx of cardiac cath (~08/2015) Family History Family History Father Prostate cancer Mother No problems noted. Social History Social History Household Members: None Housing: House Do you presently have visiting nurse or other home services: No Unable to assess alcohol history related to: Unknown Alcohol intake: never Patient Tobacco Use Status: Current everyday Tobacco user Tobacco use type: Cigarette Cigarettes Per Day: 5 Smoked in Last 30 Days: Yes Use of substances other than those prescribed or required for medical reasons: No Advance Directives: No Advance Directives Information Provided: No service: No Current occupational status: disabled Physical Exam Vital Signs: Vital Signs: Last Vital Signs Temp 98.0 F 08/06/22 22:47 Pulse 108 H 08/06/22 23:56 Resp 18 08/06/22 23:56 BP 125/84 08/06/22 22:47 Pulse Ox 96 08/06/22 22:47 O2 Del Method 08/06/22 22:47 BMI result Body Mass Index 33.6 Const: Other: Appearance: Alert. Oriented X3. patient appears short of breath and uncomfortable. Eyes: Pupils equal, round and reactive to light. ENT: Pharynx normal. Neck: Normal inspection. Neck supple. CVS: Normal heart rate and rhythm. Pulses normal. chest tender to palpation Respiratory: tachypneic. Breath sounds normal. Abdomen: Soft and diffusely tender. +BS x4 Skin: Skin warm and dry. Normal skin color. Normal skin turgor. No rashes. Extremities: No lower extremity edema. Neuro: Oriented X 3. No motor deficit. No sensory deficit. Course Course Course Narrative: Patient is a 52-year-old male presenting with shortness of breath, cough, chest pain since yesterday. Patient has an extensive cardiac history, with history heart failure with reduced ejection fraction and an implantable cardioverter-defibrillator. On exam patient is tachypneic with increased work of breathing, with consistent dry cough, mildly tachycardic. Chest pain is reproducible, worse with cough, non radiating, Abdomen tender to palpation throughout. patient is anticoagulated with Eliquis, doubt PE. EKG shows T-wave inversion in lateral leads as well as PVCs that were not present on previous EKG from July, BUN 22, creatinine 1.42, BNP 2120. His troponin is 20.7 which appears to be his baseline. His last BNP was 1370 about 1 month ago. Old records reviewed. He has multiple admissions for decompensated heart failure. He has has left AMA from here and [facility] as well. Will plan to give Duoneb, anti-tussive, repeat troponin, and get CT scans of his chest and abdomen. Anticipate he will require admission. Reevaluation(s) Reevaluation #1: Breathing improved after Duoneb but still coughing. CT scans are pending. Pt's weight today is 207 lbs. He reports his weight fluctuates 3-5 lbs every day. His old records from March at [facility] report his weight went from 190 to 213. He was Aggressively diuresed with a Lasix infusion. He had a echocardiogram done showing severely reduced EF to 10-15%, severely dilated LV, severe global hypokinesis with regional variation, grade 3 severe diastolic dysfunction, moderate pulmonary hypertension with RVSP 55-60. Will sign out to Dr. Malhotra who will follow up his CT scans, re-evaluate and d etermine dispo. MDM - Chest Pain Lab Data Result diagrams: 08/06/22 22:10 08/06/22 22:10 Labs: Lab Results 08/06/22 08/06/22 08/06/22 Range/Units 22:10 22:10 22:10 WBC 8.4 (4.8-10.8) X10*3/uL RBC 4.40 L (4.60-5.80) X10*6/uL Hgb 13.2 L (14.0-18.0) g/dl Hct 40.6 L (42.0-52.0) % MCV 92.3 (80.0-98.0) fL MCH 30.0 (27.0-33.0) pg MCHC 32.5 (31.0-36.0) g/dl RDW 17.5 H (11.0-16.0) % Plt Count 265 (160-400) X10*3/uL MPV 9.5 (9.4-12.4) fL Immature Gran % (Auto) 0.4 (0.0-0.4) % Neut % (Auto) 77.0 H (45-73) % Lymph % (Auto) 13.4 L (20-40) % [place] % (Auto) 6.4 (2-11) % Eos % (Auto) 2.0 (0-4) % Baso % (Auto) 0.8 (0-2) % Lymph # (Auto) 1.1 L (1.2-4.9) X10*3/uL [place] # (Auto) 0.5 (0.1-1.2) X10*3/uL Eos # (Auto) 0.2 (0.0-0.4) X10*3/uL Baso # (Auto) 0.1 (0.0-0.2) X10*3/uL Abs Immat Gran (auto) 0.03 (0.00-0.03) X10*3/uL Absolute Neuts (auto) 6.5 (2.0-8.3) x10*3/uL Absolute Nucleated RBC 0.000 (0.0-0.012) X10*3/uL Nucleated RBC % (auto) 0.0 (0.0-0.2) /100WBC Sodium 140 (135-145) mmol/L Potassium 3.3 (3.3-5.1) mmol/L Chloride 98 (96-108) mmol/L Carbon Dioxide 27 (22-29) mmol/L Anion Gap 18 (12-20) BUN 22 H (9-16) mg/dL Creatinine 1.42 H (0.5-1.4) mg/dL Estim Creat Clear Calc 69.0 Estimated GFR 52 Random Glucose 179 H D (60-115) mg/dL Calcium 8.6 (8.4-10.2) mg/dL Troponin I High Sens 20.7 (<3.5-35.0) ng/L B-Natriuretic Peptide 2120 H (<100) pg/mL COVID-19 ([facility]) (Negative) COVID-19 Clin Com 08/06/22 08/06/22 Range/Units 22:10 23:05 WBC (4.8-10.8) X10*3/uL RBC (4.60-5.80) X10*6/uL Hgb (14.0-18.0) g/dl Hct (42.0-52.0) % MCV (80.0-98.0) fL MCH (27.0-33.0) pg MCHC (31.0-36.0) g/dl RDW (11.0-16.0) % Plt Count (160-400) X10*3/uL MPV (9.4-12.4) fL Immature Gran % (Auto) (0.0-0.4) % Neut % (Auto) (45-73) % Lymph % (Auto) (20-40) % [place] % (Auto) (2-11) % Eos % (Auto) (0-4) % Baso % (Auto) (0-2) % Lymph # (Auto) (1.2-4.9) X10*3/uL [place] # (Auto) (0.1-1.2) X10*3/uL Eos # (Auto) (0.0-0.4) X10*3/uL Baso # (Auto) (0.0-0.2) X10*3/uL Abs Immat Gran (auto) (0.00-0.03) X10*3/uL Absolute Neuts (auto) (2.0-8.3) x10*3/uL Absolute Nucleated RBC (0.0-0.012) X10*3/uL Nucleated RBC % (auto) (0.0-0.2) /100WBC Sodium (135-145) mmol/L Potassium (3.3-5.1) mmol/L Chloride (96-108) mmol/L Carbon Dioxide (22-29) mmol/L Anion Gap (12-20) BUN (9-16) mg/dL Creatinine (0.5-1.4) mg/dL Estim Creat Clear Calc Estimated GFR Random Glucose (60-115) mg/dL Calcium (8.4-10.2) mg/dL Troponin I High Sens (<3.5-35.0) ng/L B-Natriuretic Peptide (<100) pg/mL COVID-19 ([facility]) Invalid Negative (Negative) COVID-19 Clin Com See Note See Note Discharge Plan Discharge Clinical Impression: Cough Prescriptions: No Action spironolactone 50 mg tablet 50 mg PO DAILY Qty: 30 5RF losartan 50 mg tablet 50 mg PO DAILY Qty: 90 3RF amiodarone 200 mg tablet 200 mg PO QAM 90 Days Qty: 90 0RF atorvastatin 40 mg tablet 40 mg PO DAILY hydrocodone-acetaminophen 10-325 mg tablet 1 tab PO Q4-6H PRN (Reason: pain) sertraline 25 mg tablet 25 mg PO BEDTIME albuterol sulfate 90 mcg/actuation HFA aerosol inhaler 2 puff inhalation Q4-6H Eliquis 5 mg Tablet 5 mg PO BID@0600,1800 Qty: 60 0RF carvedilol [Coreg] 3.125 mg tablet 3.125 mg PO BID Qty: 60 0RF Rx Instructions: must administer with a meal/food magnesium gluconate [Mag-G] 27 mg magnesium (500 mg) tablet 1 tab DAILY Farxiga 10 mg tablet 10 mg PO MOWEFR Rx Instructions: PATIENT STATES HE ONLY TAKES 2 -3 TIMES A WEEK FOR HEART FAILURE ipratropium-albuterol 0.5 mg-3 mg(2.5 mg base)/3 mL solution for nebulization 1 amp inhalation torsemide 20 mg tablet 3 tab PO BID bupropion HCl 150 mg tablet extended release 24 hr 1 tab PO QAM metolazone 2.5 mg tablet 2.5 mg PO QAM PRN (Reason: weight gain) Rx Instructions: when directed for weight gain, edema
[2022-08-06 23:32] LABS: COVID-19 Test Negative (Negative); IDNOW Serial# 55D5AD1C
[2022-08-06 23:56] VITALS: PULSE 108; RESP 18; O2SAT 98
[2022-08-06] MEDS: Albuterol/Iprat 2.5/0.5MG 3 ML AMPUL.NEB INHALE (23:56)
[2022-08-07] MEDS: guaiFEN/Codeine SF 200/20/10ML 10 ML LIQUID PO (00:16)
[2022-08-07 00:57] LABS: Alanine Aminotransferase 13 U/L (0-40); Albumin Level 3.7 g/dL (3.5-5.0); Alkaline Phosphatase 95 U/L (39-117); Aspartate Amino Transferase 20 U/L (5-37); Bilirubin Direct 0.8 mg/dL (0.0-0.5); Bilirubin Total 1.6 mg/dL (0.0-1.0); Total Protein 6.7 g/dL (6.5-8.0)
[2022-08-07] MEDS: Furosemide 40 MG/4 ML VIAL IVPUSH ×2 (02:01→14:05)
[2022-08-07] MEDS: Morphine Sulfate 2 MG/ML CARTRIDGE IVPUSH (02:02)
[2022-08-07] MEDS: ondansetron HCL 4 MG/2 ML VIAL IVPUSH (02:02)
--- NOTE | 2022-08-07 02:27 | P.HPHOSP_ITS ---
History of Present Illness Date of Service: 08/07/22 Chief Complaint: sob 52-year-old male with past medical history of CHF with reduced ejection fraction, history of CVA, COPD, SVT, HTN, presents to the hospital with complaints of shortness of breath, as well as cough. Patient reports symptoms started 2 days prior, he is complaining of orthopnea, PND, abdominal distension with increased abdominal girth. No lower extremity edema. Patient reports cough is dry, very bothersome, causing chest wall pain every time he coughs as well as abdominal wall pain. He denies any fever no chills, no recent sick contacts or travel. He reports compliance with his diuretics, and reports no increased salt intake. Patient otherwise denies any headache, no change in vision, no chest pain, no palpitations, no nausea or vomiting, no diarrhea or constipation, no urinary symptoms and no lower extremity numbness tingling, no weakness. No headache or change in vision. On arrival to the ED patient hemodynamically stable with a heart rate of 108 and respiratory rate of 22, And labs are significant for WBC count of 7.7, hemoglobin of 13.9 which is around his baseline, potassium of 3.2, creatinine of 1.4 which is around his baseline, BNP of 2120 which is significantly higher than usual Chest CT demonstrates multiple scattered small bilateral lung nodules with upper lobe predominance, this is new since 05/09/2021 with mediastinal lymphadenopathy concerning for possible manic Cynthia versus infection/inflammation. And started on IV diuretic and will be admitted for further management Review of Systems Review of Systems: Yes all other systems are reviewed and are negative [facility] Medical History Acute on chronic systolic heart failure Artificial cardiac pacemaker Back injuries Cardiomyopathy CVA (cerebral vascular accident) History of COPD HTN (hypertension) ICD (implantable cardioverter-defibrillator) in place NSVT (nonsustained ventricular tachycardia) Family History Father Prostate cancer Mother No problems noted. Surgical History Hx of cardiac cath (~08/2015) Social History Household Members: None Housing: House Do you presently have visiting nurse or other home services: No Unable to assess alcohol history related to: Unknown Alcohol intake: never Patient Tobacco Use Status: Current everyday Tobacco user Tobacco use type: Cigarette Cigarettes Per Day: 5 Smoked in Last 30 Days: Yes Use of substances other than those prescribed or required for medical reasons: No Advance Directives: No Advance Directives Information Provided: No service: No Current occupational status: disabled Meds Allergies Allergy/AdvReac Type Severity Reaction Status Date / Time sacubitril [From Entresto] AdvReac Rash Verified 08/06/22 21:54 valsartan [From Entresto] AdvReac Rash Verified 03/05/22 13:12 Home Medications Medication Instructions Recorded Confirmed Last Taken Type atorvastatin 40 mg tablet 40 mg PO DAILY 06/14/21 08/07/22 03/23/22 History hydrocodone 10 mg-acetaminophen 1 tab PO Q4-6H PRN pain 06/14/21 08/07/22 03/23/22 History 325 mg tablet sertraline 25 mg tablet 25 mg PO BEDTIME 06/14/21 07/12/22 03/22/22 History metolazone 2.5 mg tablet 2.5 mg PO QAM PRN weight gain 02/04/22 07/12/22 Unknown History dapagliflozin 10 mg tablet 10 mg PO MOWEFR 03/23/22 08/07/22 03/23/22 History (Farxiga) magnesium gluconate 27 mg 1 tab DAILY 03/23/22 07/12/22 03/23/22 History magnesium (500 mg) tablet (Mag-G) bupropion HCl 150 mg 24 hr tablet, 1 tab PO QAM 07/12/22 08/07/22 Unknown History extended release ipratropium 0.5 mg-albuterol 3 mg 1 amp inhalation 07/12/22 Unknown History (2.5 mg base)/3 mL nebulization soln torsemide 20 mg tablet 3 tab PO BID 07/12/22 08/07/22 Unknown History albuterol sulfate 90 mcg/actuation 2 puff inhalation Q6H PRN Dyspnea 08/07/22 08/07/22 Unknown History aerosol inhaler losartan 50 mg tablet 2 tab PO QAM 08/07/22 08/07/22 Unknown History metolazone 2.5 mg tablet 1 tab PO QAM 08/07/22 08/07/22 Unknown History potassium chloride 20 mEq/15 mL 15 ml PO BID 08/07/22 08/07/22 Unknown History oral liquid Physical Exam Vital Signs and Narrative: Vital Signs: Last Vital Signs Temp 98.0 F 08/06/22 22:47 Pulse 108 H 08/06/22 23:56 Resp 18 08/06/22 23:56 BP 125/84 08/06/22 22:47 Pulse Ox 96 08/06/22 22:47 O2 Del Method 08/06/22 22:47 BMI result Body Mass Index 33.6 Const: General: cooperative and no acute distress Orientation/consciousness: patient oriented x3 Eyes: General: appearance normal, both eyes and all related structures Pupils: Equal, round and reactive pupils present Resp: Other: Decreased breath sounds, crackles bilaterally Effort & Inspection: normal respiratory effort Cardio: Rate: regular rate Rhythm: regular rhythm GI: Other: Increased abdominal distension, no rebound or guarding Palpation (GI): Soft to palpation Auscultation: normal bowel sounds Skin: General skin exam: no rashes or lesions noted Neuro: General: patient oriented x3 Cranial nerves: Yes Equal, round and reactive pupils present Cognition (Neuro): normal cognition Extrem: General: Yes normal to inspection and Yes no pedal edema Results Labs CBC and Chem 7: 08/07/22 04:00 08/07/22 04:00 Labs: Laboratory Results - last 24 hr 08/06/22 08/06/22 08/06/22 22:10 22:10 22:10 MCV 92.3 MCH 30.0 MCHC 32.5 RDW 17.5 H Plt Count 265 MPV 9.5 Immature Gran % (Auto) 0.4 Neut % (Auto) 77.0 H Lymph % (Auto) 13.4 L [place] % (Auto) 6.4 Eos % (Auto) 2.0 Baso % (Auto) 0.8 Lymph # (Auto) 1.1 L [place] # (Auto) 0.5 Eos # (Auto) 0.2 Baso # (Auto) 0.1 Abs Immat Gran (auto) 0.03 Absolute Neuts (auto) 6.5 Absolute Nucleated RBC 0.000 Nucleated RBC % (auto) 0.0 Anion Gap 18 Estim Creat Clear Calc 69.0 Estimated GFR 52 Random Glucose 179 H D Calcium 8.6 Total Bilirubin 1.6 H Direct Bilirubin 0.8 H AST 20 ALT 13 Alkaline Phosphatase 95 B-Natriuretic Peptide 2120 H Total Protein 6.7 Albumin 3.7 COVID-19 ([facility]) COVID-19 Clin Com 08/06/22 08/06/22 22:10 23:05 MCV MCH MCHC RDW Plt Count MPV Immature Gran % (Auto) Neut % (Auto) Lymph % (Auto) [place] % (Auto) Eos % (Auto) Baso % (Auto) Lymph # (Auto) [place] # (Auto) Eos # (Auto) Baso # (Auto) Abs Immat Gran (auto) Absolute Neuts (auto) Absolute Nucleated RBC Nucleated RBC % (auto) Anion Gap Estim Creat Clear Calc Estimated GFR Random Glucose Calcium Total Bilirubin Direct Bilirubin AST ALT Alkaline Phosphatase B-Natriuretic Peptide Total Protein Albumin COVID-19 ([facility]) Invalid Negative COVID-19 Clin Com See Note See Note Imaging Radiologist's Impressions: Impressions Chest X-Ray 08/06/22 22:22 IMPRESSION: No acute intrathoracic disease Abdomen/Pelvis CT 08/07/22 00:45 IMPRESSION: 1. Multiple scattered small bilateral lung nodules with upper lobe predominance, new since 05/09/2021. Mediastinal lymphadenopathy also appears increased compared to prior. Findings could reflect an infectious/inflammatory etiology, though alternatively metastatic disease could also have this appearance. Correlation with patient history is recommended. If an inflammatory etiology is suspected, follow-up CT in approximately 3 months is advised to assess for resolution. 2. Cardiomegaly. 3. Small amount of free fluid in the upper abdomen. Chest CT 08/07/22 00:45 IMPRESSION: 1. Multiple scattered small bilateral lung nodules with upper lobe predominance, new since 05/09/2021. Mediastinal lymphadenopathy also appears increased compared to prior. Findings could reflect an infectious/inflammatory etiology, though alternatively metastatic disease could also have this appearance. Correlation with patient history is recommended. If an inflammatory etiology is suspected, follow-up CT in approximately 3 months is advised to assess for resolution. 2. Cardiomegaly. 3. Small amount of free fluid in the upper abdomen. Assessment and Plan (1) Acute on chronic HFrEF (heart failure with reduced ejection fraction): Status: Acute (2) Cough: Status: Acute (3) Current use of snf anticoagulation: Status: Acute (4) Lung nodules: Status: Acute (5) CVA (cerebral vascular accident): Status: Acute (6) Hypokalemia: Status: Acute (7) Hypertension: Status: Acute Plan 52-year-old male with past medical history of nonischemic cardiomyopathy with reduced ejection fraction of 15% presents to the hospital with complaint of shortness of breath found to have significantly elevated BNP # acute on chronic heart failure with preserved ejection fraction - in acute exacerbation - has orthopnea, PND, elevated BNP, and dyspnea - no significantly elevated troponin - will treat with IV Lasix, daily weight, strict I&O, low-sodium diet - cardiology consulted - echo per Cardiology # cough - likely secondary to volume overload - no evidence of COPD exacerbation, has no sputum production, no wheezing - will treat with p.r.n. DuoNeb, as well as cough medicine # lung nodules - concerning given his history of COPD as well as tobacco use disorder - less likely to be inflammation/infectious as patient has no leukocytosis, afebrile, , has a nonproductive cough - will consult Hematology-Oncology for further evaluation # hypertension - stable, continue home meds # diabetes - hold oral antihyperglycemics - low-dose sliding scale insulin - diabetic diet DVT prophylaxis: Eliquis Given patient's need for IV diuretics patient will require minimum 2 night hospital stay for further management and monitoring Quality Stroke Does the patient have a stroke diagnosis?: No VTE Prior VTE?: No VTE Risk Level:: Medical - moderate - high VTE Device Contraindication: Treatment Not Tolerated VTE Drug Contraindication: N/A - Med Ordered
[2022-08-07 03:14] VITALS: BP 129/93; PULSE 114; RESP 23; O2SAT 99
[2022-08-07 04:09] LABS: MANUAL DIFF FLAG NO
[2022-08-07 04:10] LABS: Basophils Absolute Auto 0.1 X10*3/uL (0.0-0.2); Basophils Percent Auto 1.2 % (0-2); Eosinophils Absolute Auto 0.2 X10*3/uL (0.0-0.4); Eosinophils Percent Auto 2.5 % (0-4); Hematocrit 43.1 % (42.0-52.0); Hemoglobin 13.9 g/dl (14.0-18.0); Imm Gran Abs Auto 0.03 X10*3/uL (0.00-0.03); Imm Gran Pct Auto 0.4 % (0.0-0.4); Lymphocytes Absolute Auto 1.3 X10*3/uL (1.2-4.9); Lymphocytes Percent Auto 16.6 % (20-40); Mean Corpuscular HGB Conc 32.3 g/dl (31.0-36.0); Mean Corpuscular Volume 92.9 fL (80.0-98.0); Mean Platelet Volume 9.3 fL (9.4-12.4); Monocytes Absolute Auto 0.5 X10*3/uL (0.1-1.2); Monocytes Percent Auto 6.3 % (2-11); Neutrophils Absolute Auto 5.6 x10*3/uL (2.0-8.3); Platelet Count 252 X10*3/uL (160-400); Red Blood Count 4.64 X10*6/uL (4.60-5.80); Red Cell Distribution Width 17.9 % (11.0-16.0); White Blood Count 7.7 X10*3/uL (4.8-10.8)
[2022-08-07 04:24] LABS: Anion Gap 18 (12-20); Blood Urea Nitrogen 22 mg/dL (9-16); Calcium 9.1 mg/dL (8.4-10.2); Carbon Dioxide 32 mmol/L (22-29); Chloride 96 mmol/L (96-108); Creatinine Clr Calc Pharmacy 74.3; Estimated Glomerular Filt Rate 57; Glucose Random 121 mg/dL (60-115); Potassium 3.2 mmol/L (3.3-5.1); Sodium 143 mmol/L (135-145)
[2022-08-07 04:32] LABS: Troponin-I High Sensitivity 22.6 ng/L (<3.5-35.0)
[2022-08-07 06:56] LABS: Magnesium 1.7 mg/dL (1.6-2.6)
--- NOTE | 2022-08-07 07:59 | P.CONCA_ITS ---
History of Present Illness History of Present Illness Date of Service: 08/07/22 Requesting physician: Juliann Agustin Chief complaint: CHF Exacerbation Narrative: 52-year-old gentleman with known NICM and chronic HF presenting with cough and SOB. He has orthopnea and PND. He has no cardiac sounding CP. He has been taking meds regularly. Was given IV diuretics and he is feeling better. He wants to go home because he has dental appointment tomorrow and does not want to miss it. [facility] Past Medical History Medical History Acute on chronic systolic heart failure Artificial cardiac pacemaker Back injuries Cardiomyopathy CVA (cerebral vascular accident) History of COPD HTN (hypertension) ICD (implantable cardioverter-defibrillator) in place NSVT (nonsustained ventricular tachycardia) Family History Family History Father Prostate cancer Mother No problems noted. Surgical History Surgical History Hx of cardiac cath (~08/2015) Social History Social History Household Members: None Housing: House Do you presently have visiting nurse or other home services: No Unable to assess alcohol history related to: Unknown Alcohol intake: never Patient Tobacco Use Status: Current everyday Tobacco user Tobacco use type: Cigarette Cigarettes Per Day: 5 Smoked in Last 30 Days: Yes Use of substances other than those prescribed or required for medical reasons: No Advance Directives: No Advance Directives Information Provided: No service: No Current occupational status: disabled Meds Allergies Allergy/AdvReac Type Severity Reaction Status Date / Time sacubitril [From Entresto] AdvReac Rash Verified 08/06/22 21:54 valsartan [From Entresto] AdvReac Rash Verified 03/05/22 13:12 Active Medications: Current Medications Acetaminophen (Acetaminophen 325 Mg Tablet) 650 mg PO Q6H PRN PRN Reason: Pain, Mild (Pain Scale 1-3) Hydrocodone Bitart/Acetaminophen (Hydrocodone Bit/Acetam 10/325 Tablet) 1 tab PO Q4-6H PRN PRN Reason: Pain, Severe (Pain Scale 7-10) Albuterol/Ipratropium (Albuterol/Iprat 2.5/0.5mg 3 Ml Ampul.Neb) 3 ml INHALE RQ4H PRN PRN Reason: Shortness of Breath/Wheezing Amiodarone HCl (Amiodarone Hcl 200 Mg Tablet) 200 mg PO QAM [facility] Apixaban (Apixaban 5 Mg Tablet) 5 mg PO BID@0600,1800 [facility] Atorvastatin Calcium (Atorvastatin Calcium 40 Mg Tablet) 40 mg PO DAILY [facility] Benzonatate (Benzonatate 100 Mg Capsule) 100 mg PO TID PRN PRN Reason: Cough Bupropion HCl (Bupropion Hcl Xl 150 Mg Tab.Er.24h) 150 mg PO QAM [facility] Docusate Sodium (Docusate Sodium 100 Mg Capsule) 100 mg PO DAILY PRN PRN Reason: Constipation Furosemide (Furosemide 40 Mg/4 Ml Vial) 40 mg IVPUSH Q12H [facility]; Protocol Losartan Potassium (Losartan Potassium 50 Mg Tablet) 100 mg PO QAM [facility]; Protocol Metolazone (Metolazone 2.5 Mg Tablet) [facility] Medication (Potassium Chloride) 15 ml PO BID [facility] Ondansetron HCl (Ondansetron Hcl 4 Mg/2 Ml Vial) 4 mg IVPUSH Q8H PRN PRN Reason: Nausea and Vomiting Potassium Chloride (Potassium Chloride Packet 20 Meq Packet) 40 meq PO Q2H [facility] Stop: 08/07/22 08:46 Sodium Chloride (0.9 % Sodium Chloride Flush 3 Ml Syringe) 3 ml IVFLUSH QSHIFT [facility] Home Medications Medication Instructions Recorded Confirmed Last Taken Type atorvastatin 40 mg tablet 40 mg PO DAILY 06/14/21 08/07/22 08/05/22 History hydrocodone 10 mg-acetaminophen 1 tab PO Q4-6H PRN pain 06/14/21 08/07/22 03/23/22 History 325 mg tablet dapagliflozin 10 mg tablet 10 mg PO DAILY 03/23/22 08/07/22 03/23/22 History (Farxiga) bupropion HCl 150 mg 24 hr tablet, 1 tab PO DAILY 07/12/22 08/07/22 08/05/22 History extended release ipratropium 0.5 mg-albuterol 3 mg 1 amp inhalation 6XD PRN Shortness 07/12/22 08/07/22 Unknown History (2.5 mg base)/3 mL nebulization Of Breath Or Wheezing soln torsemide 20 mg tablet 3 tab PO BID 07/12/22 08/07/22 Unknown History albuterol sulfate 90 mcg/actuation 2 puff inhalation Q6H PRN Dyspnea 08/07/22 08/07/22 Unknown History aerosol inhaler carvedilol 6.25 mg tablet 1 tab PO BID 08/07/22 08/07/22 08/05/22 History losartan 50 mg tablet 2 tab PO DAILY 08/07/22 08/07/22 08/05/22 History metolazone 2.5 mg tablet 1 tab PO DAILY 08/07/22 08/07/22 08/05/22 History potassium chloride 20 mEq/15 mL 15 ml PO BID 08/07/22 08/07/22 Unknown History oral liquid spironolactone 50 mg tablet 1 tab PO DAILY 08/07/22 08/07/22 08/05/22 History Physical Exam Vital Signs: Vital Signs: Last Vital Signs Temp 98.0 F 08/06/22 22:47 Pulse 114 H 08/07/22 03:14 Resp 23 H 08/07/22 03:14 BP 129/93 H 08/07/22 03:14 Pulse Ox 99 08/07/22 03:14 O2 Del Method 08/07/22 03:14 BMI result Body Mass Index 33.6 GENERAL APPEARANCE: SOB. NECK: no carotid bruit, + JVD. distended external jugulars. SKIN: no suspicious lesions, warm and dry. HEART: no murmurs, regular rate and rhythm. LUNGS: clear to auscultation bilaterally. ABDOMEN: SOft, NT. EXTREMITIES: No edema. PERIPHERAL PULSES: equal. NEUROLOGIC: No gross deficits, AAO X 3 Objective Labs and Meds Result diagrams: 08/07/22 04:00 08/07/22 04:00 Lab results: Laboratory Results - last 24 hr 08/06/22 08/06/22 08/06/22 22:10 22:10 22:10 WBC 8.4 RBC 4.40 L Hgb 13.2 L Hct 40.6 L MCV 92.3 MCH 30.0 MCHC 32.5 RDW 17.5 H Plt Count 265 MPV 9.5 Immature Gran % (Auto) 0.4 Neut % (Auto) 77.0 H Lymph % (Auto) 13.4 L [place] % (Auto) 6.4 Eos % (Auto) 2.0 Baso % (Auto) 0.8 Lymph # (Auto) 1.1 L [place] # (Auto) 0.5 Eos # (Auto) 0.2 Baso # (Auto) 0.1 Abs Immat Gran (auto) 0.03 Absolute Neuts (auto) 6.5 Absolute Nucleated RBC 0.000 Nucleated RBC % (auto) 0.0 Sodium 140 Potassium 3.3 Chloride 98 Carbon Dioxide 27 Anion Gap 18 BUN 22 H Creatinine 1.42 H Estim Creat Clear Calc 69.0 Estimated GFR 52 Random Glucose 179 H D Calcium 8.6 Magnesium Total Bilirubin 1.6 H Direct Bilirubin 0.8 H AST 20 ALT 13 Alkaline Phosphatase 95 Troponin I High Sens 20.7 B-Natriuretic Peptide 2120 H Total Protein 6.7 Albumin 3.7 COVID-19 ([facility]) COVID-19 Clin Com 08/06/22 08/06/22 08/07/22 22:10 23:05 04:00 WBC RBC Hgb Hct MCV MCH MCHC RDW Plt Count MPV Immature Gran % (Auto) Neut % (Auto) Lymph % (Auto) [place] % (Auto) Eos % (Auto) Baso % (Auto) Lymph # (Auto) [place] # (Auto) Eos # (Auto) Baso # (Auto) Abs Immat Gran (auto) Absolute Neuts (auto) Absolute Nucleated RBC Nucleated RBC % (auto) Sodium Potassium Chloride Carbon Dioxide Anion Gap BUN Creatinine Estim Creat Clear Calc Estimated GFR Random Glucose Calcium Magnesium Total Bilirubin Direct Bilirubin AST ALT Alkaline Phosphatase Troponin I High Sens 22.6 B-Natriuretic Peptide Total Protein Albumin COVID-19 ([facility]) Invalid Negative COVID-19 Clin Com See Note See Note 08/07/22 08/07/22 04:00 04:00 WBC 7.7 RBC 4.64 Hgb 13.9 L Hct 43.1 MCV 92.9 MCH 30.0 MCHC 32.3 RDW 17.9 H Plt Count 252 MPV 9.3 L Immature Gran % (Auto) 0.4 Neut % (Auto) 73.0 Lymph % (Auto) 16.6 L [place] % (Auto) 6.3 Eos % (Auto) 2.5 Baso % (Auto) 1.2 Lymph # (Auto) 1.3 [place] # (Auto) 0.5 Eos # (Auto) 0.2 Baso # (Auto) 0.1 Abs Immat Gran (auto) 0.03 Absolute Neuts (auto) 5.6 Absolute Nucleated RBC 0.000 Nucleated RBC % (auto) 0.0 Sodium 143 Potassium 3.2 L Chloride 96 Carbon Dioxide 32 H Anion Gap 18 BUN 22 H Creatinine 1.32 Estim Creat Clear Calc 74.3 Estimated GFR 57 Random Glucose 121 H Calcium 9.1 Magnesium 1.7 Total Bilirubin Direct Bilirubin AST ALT Alkaline Phosphatase Troponin I High Sens B-Natriuretic Peptide Total Protein Albumin COVID-19 ([facility]) COVID-19 Clin Com Imaging Radiologist's impression: Impressions Chest X-Ray 08/06/22 22:22 IMPRESSION: No acute intrathoracic disease Abdomen/Pelvis CT 08/07/22 00:45 IMPRESSION: 1. Multiple scattered small bilateral lung nodules with upper lobe predominance, new since 05/09/2021. Mediastinal lymphadenopathy also appears increased compared to prior. Findings could reflect an infectious/inflammatory etiology, though alternatively metastatic disease could also have this appearance. Correlation with patient history is recommended. If an inflammatory etiology is suspected, follow-up CT in approximately 3 months is advised to assess for resolution. 2. Cardiomegaly. 3. Small amount of free fluid in the upper abdomen. Chest CT 08/07/22 00:45 IMPRESSION: 1. Multiple scattered small bilateral lung nodules with upper lobe predominance, new since 05/09/2021. Mediastinal lymphadenopathy also appears increased compared to prior. Findings could reflect an infectious/inflammatory etiology, though alternatively metastatic disease could also have this appearance. Correlation with patient history is recommended. If an inflammatory etiology is suspected, follow-up CT in approximately 3 months is advised to assess for resolution. 2. Cardiomegaly. 3. Small amount of free fluid in the upper abdomen. Assessment and Plan (1) Dyspnea: Status: Acute (2) Lung nodules: Status: Acute (3) Chronic combined systolic and diastolic CHF, NYHA class 3: Status: Acute Plan 52 male with chronic HF presenting with cough and SOB. Clinically looks overloaded. Agree with IV diuretics. He wishes to go home. Overall he looks mildly overloaded. same meds. f/u in the office if he ends up leaving otherwise we will follow tomorrow. Procedures Date of Service Date of Service: 08/07/22
--- NOTE | 2022-08-07 08:16 | PHA.MEDREC ---
Pharmacy Consult ? Medication Reconciliation Pharmacy has completed the medication reconciliation. Pt is poor historian, says he gets all meds at [facility] and told me whatever they have is what he takes. Did med rec based on claim history. Pt also stated he didn't feel well yesterday so he did not take any of his medications.
[2022-08-07 08:41] LABS: Lactate Dehydrogenase 332 U/L (118-273)
[2022-08-07] MEDS: Losartan Potassium 50 MG TABLET 100 MG PO (08:52)
[2022-08-07] MEDS: Benzonatate 100 MG CAPSULE PO ×2 (08:52→12:21)
[2022-08-07] MEDS: Apixaban 5 MG TABLET PO (08:52)
[2022-08-07] MEDS: buPROPion HCl XL 150 MG TAB.ER.24H PO (08:52)
[2022-08-07] MEDS: Atorvastatin Calcium 40 MG TABLET PO (08:52)
[2022-08-07] MEDS: Potassium Chloride Packet 20 MEQ PACKET 40 MEQ PO ×2 (08:52→12:22)
[2022-08-07] MEDS: 0.9 % Sodium Chloride Flush 3 ML SYRINGE IVFLUSH (08:52)
[2022-08-07 08:53] VITALS: BP 121/77; PULSE 96; RESP 20
[2022-08-07] MEDS: metOLazone 2.5 MG TABLET PO (09:41)
--- NOTE | 2022-08-07 12:11 | MHC.CM.PN ---
CM spoke with Patient over the phone at [phone] and addressed IMM with him (original to be given to Patient and a copy to be placed on the chart). Patient lives alone in an apartment and he required no DME nor servicrs FACILITY SPECIALIST. Home, self care is the goal and CM has initiated and will follow for dc planning. PCP is Dr. Duong and Patient has received Moderna/Covid vax X3.
[2022-08-07] MEDS: Acetaminophen 325 MG TABLET 650 MG PO (12:21)
[2022-08-07] MEDS: carvediloL 6.25 MG TABLET PO (12:22)
[2022-08-07 12:27] VITALS: BP 107/79; PULSE 99; RESP 18; O2SAT 96
--- NOTE | 2022-08-07 13:29 | PM.CNPUL ---
History of Present Illness History of Present Illness Consult date: 08/07/22 Requesting physician: Juliann Agustin Chief complaint: CHF Exacerbation Narrative: 52-year-old gentleman with underlying severe cardiomyopathy with EF of 10-15%, status post AICD, also history of NSVT, CVA, pulmonary abscess/empyema, likely COPD, though not previously evaluated by hub bander with underlying smoking history of 4250 pack-years admitted on 08/06/2022 with dyspnea worsening over several days. On ER evaluation patient with elevated brain natriuretic peptide and CT chest consistent with pulmonary edema. He was started on diuresis with subjective improvement in his dyspnea. CT chest also demonstrated worsening mediastinal lymphadenopathy and small increase in the size of known bilateral pulmonary nodules. Patient denies exposure to industrial dusts. He denies family history of lung disease patient was previously employed as an automechanic. Review of Systems Constitutional: Constitutional: Denies daytime sleepiness, Denies excessive sweating, Denies fatigue, Denies fever(s), Denies lethargy, Denies malaise, Denies night sweats, Denies snoring and Denies weight loss Eyes: Eyes: Denies blurry vision and Denies itchy eyes ENT: Denies nasal congestion, Denies post nasal drip, Denies sinus pain, Denies sinus pressure and Denies other ( Thrush) Cardiovascular: Cardiovascular: Denies chest pain, Denies pedal edema, Reports dyspnea, Reports dyspnea on exertion, Reports orthopnea and Reports paroxysmal nocturnal dyspnea Respiratory: Respiratory: Denies cough, Denies hemoptysis, Denies excessive phlegm production, Reports dyspnea, Reports dyspnea on exertion, Denies snoring and Denies wheezing Gastrointestinal: Gastrointestinal: Denies abdominal pain and Denies heartburn Musculoskeletal: Musculoskeletal: Denies myalgias, Denies arthralgias and Denies joint swelling Integumentary/Breasts: Skin/Breast: Denies rash Neurologic: Denies memory loss and Denies seizure-like activity Psychiatric: Psychiatric: Denies abnormal sleep pattern, Denies anxiety and Denies memory loss Endocrine: Endocrine: Denies excessive sweating, Denies fatigue and Denies heat intolerance Hematologic/Lymphatic: Hematologic/Lymphatic: Denies easy bruising Allergic/Immunologic: Allergic/Immunologic: Denies itchy eyes, Denies seasonal rhinorrhea and Denies wheezing PMFSH Past Medical History Medical History Acute on chronic systolic heart failure Artificial cardiac pacemaker Back injuries Cardiomyopathy CVA (cerebral vascular accident) History of COPD HTN (hypertension) ICD (implantable cardioverter-defibrillator) in place NSVT (nonsustained ventricular tachycardia) Family History Family History Father Prostate cancer Mother No problems noted. Surgical History Surgical History Hx of cardiac cath (~08/2015) Social History Social History Household Members: None Housing: House Do you presently have visiting nurse or other home services: No Unable to assess alcohol history related to: Unknown Alcohol intake: never Patient Tobacco Use Status: Current everyday Tobacco user Tobacco use type: Cigarette Cigarettes Per Day: 5 Smoked in Last 30 Days: Yes Use of substances other than those prescribed or required for medical reasons: No Advance Directives: No Advance Directives Information Provided: No service: No Current occupational status: disabled Meds Allergies Allergy/AdvReac Type Severity Reaction Status Date / Time sacubitril [From Entresto] AdvReac Rash Verified 08/06/22 21:54 valsartan [From Entresto] AdvReac Rash Verified 03/05/22 13:12 Active Medications: Current Medications Acetaminophen (Acetaminophen 325 Mg Tablet) 650 mg PO Q6H PRN PRN Reason: Pain, Mild (Pain Scale 1-3) Last Admin: 08/07/22 12:21 Dose: 650 mg Hydrocodone Bitart/Acetaminophen (Hydrocodone Bit/Acetam 10/325 Tablet) 1 tab PO Q4H PRN PRN Reason: Pain, Severe (Pain Scale 7-10) Last Admin: 08/07/22 09:41 Dose: 1 tab Albuterol/Ipratropium (Albuterol/Iprat 2.5/0.5mg 3 Ml Ampul.Neb) 3 ml INHALE Q4H PRN PRN Reason: Shortness of Breath/Wheezing Amiodarone HCl (Amiodarone Hcl 200 Mg Tablet) 200 mg PO DAILY BETTINA Last Admin: 08/07/22 12:26 Dose: Not Given Apixaban (Apixaban 5 Mg Tablet) 5 mg PO BID@0600,1800 [facility] Last Admin: 08/07/22 08:52 Dose: 5 mg Atorvastatin Calcium (Atorvastatin Calcium 40 Mg Tablet) 40 mg PO DAILY [facility] Last Admin: 08/07/22 08:52 Dose: 40 mg Benzonatate (Benzonatate 100 Mg Capsule) 100 mg PO TID [facility] Last Admin: 08/07/22 12:21 Dose: 100 mg Bupropion HCl (Bupropion Hcl Xl 150 Mg Tab.Er.24h) 150 mg PO DAILY [facility] Last Admin: 08/07/22 08:52 Dose: 150 mg Carvedilol (Carvedilol 6.25 Mg Tablet) 6.25 mg PO BID [facility]; Protocol Last Admin: 08/07/22 12:22 Dose: 6.25 mg Docusate Sodium (Docusate Sodium 100 Mg Capsule) 100 mg PO DAILY PRN PRN Reason: Constipation Furosemide (Furosemide 40 Mg/4 Ml Vial) 40 mg IVPUSH Q12H [facility]; Protocol Guaifenesin/Dextromethorphan (Guaifenesin Dm 200/20/10 Ml 10 Ml Syrup) 10 ml PO Q6H PRN PRN Reason: Cough Losartan Potassium (Losartan Potassium 50 Mg Tablet) 100 mg PO DAILY [facility]; Protocol Last Admin: 08/07/22 08:52 Dose: 100 mg Metolazone (Metolazone 2.5 Mg Tablet) 2.5 mg PO DAILY [facility] Last Admin: 08/07/22 09:41 Dose: 2.5 mg Ondansetron HCl (Ondansetron Hcl 4 Mg/2 Ml Vial) 4 mg IVPUSH Q8H PRN PRN Reason: Nausea and Vomiting Sodium Chloride (0.9 % Sodium Chloride Flush 3 Ml Syringe) 3 ml IVFLUSH QSHIFT [facility] Last Admin: 08/07/22 08:52 Dose: 3 ml Home Medications Medication Instructions Recorded Confirmed Last Taken Type atorvastatin 40 mg tablet 40 mg PO DAILY 06/14/21 08/07/22 08/05/22 History hydrocodone 10 mg-acetaminophen 1 tab PO Q4-6H PRN pain 06/14/21 08/07/22 03/23/22 History 325 mg tablet dapagliflozin 10 mg tablet 10 mg PO DAILY 03/23/22 08/07/22 03/23/22 History ([facility]) bupropion HCl 150 mg 24 hr tablet, 1 tab PO DAILY 07/12/22 08/07/22 08/05/22 History extended release ipratropium 0.5 mg-albuterol 3 mg 1 amp inhalation 6XD PRN Shortness 07/12/22 08/07/22 Unknown History (2.5 mg base)/3 mL nebulization Of Breath Or Wheezing soln torsemide 20 mg tablet 3 tab PO BID 07/12/22 08/07/22 Unknown History albuterol sulfate 90 mcg/actuation 2 puff inhalation Q6H PRN Dyspnea 08/07/22 08/07/22 Unknown History aerosol inhaler carvedilol 6.25 mg tablet 1 tab PO BID 08/07/22 08/07/22 08/05/22 History losartan 50 mg tablet 2 tab PO DAILY 08/07/22 08/07/22 08/05/22 History metolazone 2.5 mg tablet 1 tab PO DAILY 08/07/22 08/07/22 08/05/22 History potassium chloride 20 mEq/15 mL 15 ml PO BID 08/07/22 08/07/22 Unknown History oral liquid spironolactone 50 mg tablet 1 tab PO DAILY 08/07/22 08/07/22 08/05/22 History Physical Exam Vital Signs: Vital Signs: Last Vital Signs Temp 98.0 F 08/06/22 22:47 Pulse 99 08/07/22 12:27 Resp 18 08/07/22 12:27 BP 107/79 08/07/22 12:27 Pulse Ox 96 08/07/22 12:27 O2 Del Method 08/07/22 12:27 BMI result Body Mass Index 33.6 Const: General: no acute distress and alert Nutritional Appearance: not obese Orientation/consciousness: Other orientation findings ( oriented) HEENT: Head: Yes atraumatic Mouth: no other ( thrush) Throat: No postnasal drainage Eyes: General: appearance normal, both eyes and all related structures Sclerae: sclerae normal EOM: EOMs intact bilaterally Neck: Neck: Yes supple Lymphatic: no lymphadenopathy noted Resp: Effort & Inspection: normal respiratory effort and no use of accessory muscles Auscultation: clear to auscultation bilaterally Cardio: Rate: regular rate Rhythm: regular rhythm Heart sounds: no gallops, no murmurs and no rubs GI: Palpation (GI): Soft to palpation and Other GI palpation findings present ( nontender) Skin: General skin exam: other ( warm) Rashes: no rashes Extrem: General: No clubbing, No cyanosis and Yes edema (Trace bilateral) Results Laboratory Findings CBC and BMP: 08/07/22 04:00 08/07/22 04:00 Abnormal lab findings: Abnormal Labs 08/06/22 08/06/22 08/06/22 22:10 22:10 22:10 RBC 4.40 L Hgb 13.2 L Hct 40.6 L RDW 17.5 H MPV Neut % (Auto) 77.0 H Lymph % (Auto) 13.4 L Lymph # (Auto) 1.1 L Potassium Carbon Dioxide BUN 22 H Creatinine 1.42 H Random Glucose 179 H D Total Bilirubin 1.6 H Direct Bilirubin 0.8 H Lactate Dehydrogenase B-Natriuretic Peptide 2120 H 08/07/22 08/07/22 04:00 04:00 RBC Hgb 13.9 L Hct RDW 17.9 H MPV 9.3 L Neut % (Auto) Lymph % (Auto) 16.6 L Lymph # (Auto) Potassium 3.2 L Carbon Dioxide 32 H BUN 22 H Creatinine Random Glucose 121 H Total Bilirubin Direct Bilirubin Lactate Dehydrogenase 332 H B-Natriuretic Peptide Assessment and Plan (1) Lung nodules: Status: Acute (2) COPD (chronic obstructive pulmonary disease): Status: Acute (3) Dyspnea: Status: Acute Plan Impression: 52-year-old gentleman with underlying severe cardiomyopathy with reduced ejection fraction admitted with worsening dyspnea that appears to be secondary to worsening of underlying congestive heart failure, now slowly improving with diuresis. Patient will also noted to have increasing inside is in his mediastinal lymphadenopathy and bilateral pulmonary nodules, however these can be observed in acute exacerbation of underlying congestive heart failure. Recommendations: Agree with diuresis to treated and ongoing exacerbation of underlying congestive heart failure. Would recommend an outpatient pulmonary follow-up with repeat CT chest in 3 months for evaluation of tactual changes in his mediastinal lymphadenopathy and pulmonary nodules outside of changes induced by pulmonary edema. Procedures Date of Service Date of Service: 08/07/22
--- NOTE | 2022-08-07 14:17 | P.DS_ITS ---
DS: Providers Provider Date of Service: 08/07/22 Date of admission: 08/07/22 02:22 Primary care physician: Unknown Physician Consults: 08/07/22 02:22 Consult to Cardiology Routine Consulting Provider: Bud Collado Reason for consultation: chf Has provider been notified: No 08/07/22 09:20 Consult to Pulmonology Routine Consulting Provider: Laz Loera Reason for consultation: sob/lung nodules Has provider been notified: No DS: Diagnosis Discharge Diagnosis (1) Dyspnea: Status: Acute (2) Lung nodules: Status: Acute (3) Chronic combined systolic and diastolic CHF, NYHA class 3: Status: Acute DS: Summary Hospital Course Hospital Course: Date of Service: 08/07/22 Chief Complaint: sob 52-year-old male with past medical history of CHF with reduced ejection fraction, history of CVA, COPD, SVT, HTN, presents to the hospital with complaints of shortness of breath, as well as cough.? Patient reports symptoms started 2 days prior, he is complaining of orthopnea, PND, abdominal distension with increased abdominal girth.? No lower extremity edema.? Patient reports cough is dry, very bothersome, causing chest wall pain every time he coughs as well as abdominal wall pain.? He denies any fever no chills, no recent sick contacts or travel.? He reports compliance with his diuretics, and reports no increased salt intake. Patient otherwise denies any headache, no change in vision, no chest pain, no palpitations, no nausea or vomiting, no diarrhea or constipation, no urinary symptoms and no lower extremity numbness tingling, no weakness.? No headache or change in vision.? On arrival to the ED patient hemodynamically stable with a heart rate of 108 and respiratory rate of 22, And labs are significant for WBC count of 7.7, hemoglobin of 13.9 which is around his baseline, potassium of 3.2, creatinine of 1.4 which is around his baseline, BNP of 2120 which is significantly higher than usual Chest CT demonstrates multiple scattered small bilateral lung nodules with upper lobe predominance, this is new since 05/09/2021 with mediastinal lymphadenopathy concerning for possible manic Cynthia versus infection/inflammation. And started on IV diuretic and will be admitted for further management hospital course acute on chronic combined systolic and diastolic heart failure exacerbation patient admitted early this morning with symptoms of shortness of breath and cough and diagnosed to have acute on chronic combined systolic and diastolic congestive heart failure patient placed on IV diuretics and continued on metolazone, patient continued to complain of cough and chest discomfort with coughing, patient evaluated by Dr. Thacker from Cardiology he recommend to continue IV diuretics but since patient is adamant that he wishes to be discharged home cardiology's okay to discharge patient home with home diuretics, patient has been strongly recommend to returned to [facility] ER with any recurrent or worsening symptoms of shortness of breath cough, chest pain, near-syncope, patient CT chest showed new bilateral small scattered pulmonary nodules with increased mediastinal lymph adenopathy therefore he was evaluated by barbering teacher Dr. Fisher of he recommend outpatient pulmonology follow-up and repeat CT chest in 3 months, there was no evidence of acute infection with no fevers normal WBC count oxygenation is stable on room air. cough is most likely related to CHF recommend as needed cough medication, strict low-salt diet and recommend compliance with home medication Mild hypokalemia potassium has been repleted recommend repeat BMP in 48 hours hypertension recommend to continue home medications blood pressure is stable in regard to diabetes recommend to resume oral hypo hyperglycemics and continue diabetic diet Time Spent with Patient Time attestation: Total time spent providing and/or coordinating discharge services: Discharge coordination time: Greater than 30 minutes Quality: Safe Use of Opioids Does Pt have an Active Cancer Diagnosis on the Problem List?: No Quality: Stroke Does the patient have a stroke diagnosis?: No Physical Exam Vital Signs: Vital Signs: Last Vital Signs Temp 98.0 F 08/06/22 22:47 Pulse 99 08/07/22 12:27 Resp 18 08/07/22 12:27 BP 107/79 08/07/22 12:27 Pulse Ox 96 08/07/22 12:27 O2 Del Method 08/07/22 12:27 BMI result Body Mass Index 33.6 Const: Other: General awake alert, no acute distress. Neck + JVD. CVS regular rate rhythm, Respiratory lungs clear to auscultation, no respiratory distress, no wheeze, no rhonchi. Gastrointestinal abdomen soft, nontender, bowel sounds audible Extremities no edema. Neuro nonfocal Skin no rash DS: Data Data Completed and Pending Labs on day of discharge: Laboratory Results - last 24 hr 08/06/22 08/06/22 08/06/22 22:10 22:10 22:10 WBC 8.4 RBC 4.40 L Hgb 13.2 L Hct 40.6 L MCV 92.3 MCH 30.0 MCHC 32.5 RDW 17.5 H Plt Count 265 MPV 9.5 Immature Gran % (Auto) 0.4 Neut % (Auto) 77.0 H Lymph % (Auto) 13.4 L Sutton % (Auto) 6.4 Eos % (Auto) 2.0 Baso % (Auto) 0.8 Lymph # (Auto) 1.1 L Sutton # (Auto) 0.5 Eos # (Auto) 0.2 Baso # (Auto) 0.1 Abs Immat Gran (auto) 0.03 Absolute Neuts (auto) 6.5 Absolute Nucleated RBC 0.000 Nucleated RBC % (auto) 0.0 Sodium 140 Potassium 3.3 Chloride 98 Carbon Dioxide 27 Anion Gap 18 BUN 22 H Creatinine 1.42 H Estim Creat Clear Calc 69.0 Estimated GFR 52 Random Glucose 179 H D Calcium 8.6 Magnesium Total Bilirubin 1.6 H Direct Bilirubin 0.8 H AST 20 ALT 13 Alkaline Phosphatase 95 Lactate Dehydrogenase Troponin I High Sens 20.7 B-Natriuretic Peptide 2120 H Total Protein 6.7 Albumin 3.7 Carcinoembryonic Ag COVID-19 ([facility]) COVID-19 [facility] Com 08/06/22 08/06/22 08/07/22 22:10 23:05 04:00 WBC RBC Hgb Hct MCV MCH MCHC RDW Plt Count MPV Immature Gran % (Auto) Neut % (Auto) Lymph % (Auto) Sutton % (Auto) Eos % (Auto) Baso % (Auto) Lymph # (Auto) Sutton # (Auto) Eos # (Auto) Baso # (Auto) Abs Immat Gran (auto) Absolute Neuts (auto) Absolute Nucleated RBC Nucleated RBC % (auto) Sodium Potassium Chloride Carbon Dioxide Anion Gap BUN Creatinine Estim Creat Clear Calc Estimated GFR Random Glucose Calcium Magnesium Total Bilirubin Direct Bilirubin AST ALT Alkaline Phosphatase Lactate Dehydrogenase Troponin I High Sens 22.6 B-Natriuretic Peptide Total Protein Albumin Carcinoembryonic Ag COVID-19 ([facility]) Invalid Negative COVID-19 Clin Com See Note See Note 08/07/22 08/07/22 04:00 04:00 WBC 7.7 RBC 4.64 Hgb 13.9 L Hct 43.1 MCV 92.9 MCH 30.0 MCHC 32.3 RDW 17.9 H Plt Count 252 MPV 9.3 L Immature Gran % (Auto) 0.4 Neut % (Auto) 73.0 Lymph % (Auto) 16.6 L Sutton % (Auto) 6.3 Eos % (Auto) 2.5 Baso % (Auto) 1.2 Lymph # (Auto) 1.3 Sutton # (Auto) 0.5 Eos # (Auto) 0.2 Baso # (Auto) 0.1 Abs Immat Gran (auto) 0.03 Absolute Neuts (auto) 5.6 Absolute Nucleated RBC 0.000 Nucleated RBC % (auto) 0.0 Sodium 143 Potassium 3.2 L Chloride 96 Carbon Dioxide 32 H Anion Gap 18 BUN 22 H Creatinine 1.32 Estim Creat Clear Calc 74.3 Estimated GFR 57 Random Glucose 121 H Calcium 9.1 Magnesium 1.7 Total Bilirubin Direct Bilirubin AST ALT Alkaline Phosphatase Lactate Dehydrogenase 332 H Troponin I High Sens B-Natriuretic Peptide Total Protein Albumin Carcinoembryonic Ag 8.70 COVID-19 ([facility]) COVID-19 Clin Com Discharge Plan Discharge Patient Disposition: Home, Self-Care Discharge Diagnosis: acute on chronic combined systolic/ diastolic CHF bilateral pulmonary nodules Referrals: Physician,Unknown J [Primary Care Provider] - 1 Week Discharge Medications: New benzonatate 100 mg Capsule 100 mg PO TID PRN (Reason: cough) Qty: 20 0RF Continued amiodarone 200 mg tablet 200 mg PO QAM 90 Days Qty: 90 0RF atorvastatin 40 mg tablet 40 mg PO DAILY hydrocodone-acetaminophen 10-325 mg tablet 1 tab PO Q4-6H PRN (Reason: pain) Eliquis 5 mg Tablet 5 mg PO BID@0600,1800 Qty: 60 0RF losartan 50 mg tablet 2 tab PO DAILY metolazone 2.5 mg tablet 1 tab PO DAILY potassium chloride 20 mEq/15 mL liquid 15 ml PO BID albuterol sulfate 90 mcg/actuation HFA aerosol inhaler 2 puff inhalation Q6H PRN (Reason: Dyspnea) carvedilol 6.25 mg tablet 1 tab PO BID spironolactone 50 mg tablet 1 tab PO DAILY Farxiga 10 mg tablet 10 mg PO DAILY Rx Instructions: PATIENT STATES HE ONLY TAKES 2 -3 TIMES A WEEK FOR HEART FAILURE ipratropium-albuterol 0.5 mg-3 mg(2.5 mg base)/3 mL solution for nebulization 1 amp inhalation 6XD PRN (Reason: Shortness Of Breath Or Wheezing) torsemide 20 mg tablet 3 tab PO BID bupropion HCl 150 mg tablet extended release 24 hr 1 tab PO DAILY Discharge Orders: Discharge Order (Routine); Ordered 08/07/22 Ordered By: Juliann Agustin Diet: Low salt diet Activity on Discharge: As tolerated Stand Alone Forms: Patient Portal Discharge page Other Ambulatory Orders: Basic Metabolic Panel (Routine) Timeframe: [id number] Facility: [facility] - Location: Laboratory Ordered By: Juliann Agustin Care Plan Goals: pulmonary nodules/ mediastinal lymphadenopathy strongly recommend to abstain from smoking and outpatient follow-up with barbering teacher Dr. Loera for repeat CT chest in 3 months acute on chronic congestive heart failure strongly recommend to follow low-salt diet take all diuretics as prescribed and follow-up with cardiology check BMP in 2 days return to check with worsening shortness of breath, chest pain or palpitation or passing out feeling. no pneumonia, take cough medication as needed Health Concerns: cardiomyopathy low EF/ diabetes mellitus/ pulmonary nodule need close follow-up with cardiology in primary care physician Plan of Treatment: follow-up with primary outbound supervisor in 1 week call to make appointment to adjust medications, outpatient follow-up with barbering teacher Dr. Loera call to make an appointment for follow-up CT chest Assessment: as per discharge summary
--- NOTE | 2022-08-07 14:22 | MHC.CM.PN ---
Patient has been medically cleared for dc to home today, self care. IMM addressed this morning.
== END 2022-08-07 14:42 | disposition home or self-care (01) | DRG 291 ==
LOC: HO.ED 23:04 → HO.EDOVER 08-07 02:30
PROVIDERS: Internal Medicine; Physician Assistant; Admitting Provider Internal Medicine; Emergency Provider Internal Medicine; PCP Internal Medicine; Visit Provider Hospitalist
DX: I11.0 Hypertensive heart disease with heart failure (principal); I50.43 Acute on chronic combined systolic (congestive) and diastolic (congestive) heart failure; I47.1 Supraventricular tachycardia; I42.8 Other cardiomyopathies; Z86.73 Personal history of transient ischemic attack (TIA), and cerebral infarction without residual deficits; G47.33 Obstructive sleep apnea (adult) (pediatric); E87.6 Hypokalemia; J44.9 Chronic obstructive pulmonary disease, unspecified; G89.29 Other chronic pain; R91.8 Other nonspecific abnormal finding of lung field; F17.210 Nicotine dependence, cigarettes, uncomplicated; Z71.6 Tobacco abuse counseling; Z20.822 Contact with and (suspected) exposure to COVID-19; Z95.810 Presence of automatic (implantable) cardiac defibrillator; Z88.8 Allergy status to other drugs, medicaments and biological substances; Z79.01 Long term (current) use of anticoagulants; Z79.899 Other long term (current) drug therapy
CPT/HCPCS: 36415; 71045; 71250; 74176; 80048; 80076; 82378; 83615; 83735; 83880; 84484; 85025; 87635; 93005; 94640; 99285; J1940; J2270; J2405

== ENCOUNTER 2022-10-09 19:33 | Emergency (ER) | payer MEDICARE, MEDICAID, SELFPAY ==
--- NOTE | ~2022-10-09 | XR_ITS ---
EXAMINATION: XR CHEST CLINICAL INFORMATION: Pulmonary edema COMPARISON: 08/06/2022 TECHNIQUE: Frontal view of the chest was obtained. FINDINGS: Again seen is mild cardiomegaly and a left chest wall pacer/AICD along with a CardioMEMS. Continued Left basilar atelectasis is present. No evidence of CHF. No infiltrates, effusions or lung masses are seen XR/XR chest 1V IMPRESSION: No acute intrathoracic disease. No evidence of pulmonary edema.
--- NOTE | 2022-10-09 20:16 | ED.GENADULT ---
HPI - General Adult General Chief complaint: General Medical Stated complaint: rodolfo leg swelling,coughing congested Time Seen by Provider: 10/09/22 23:20 Related Data Home Medications Medication Instructions Recorded Confirmed atorvastatin 40 mg tablet 40 mg PO DAILY 06/14/21 08/07/22 hydrocodone 10 mg-acetaminophen 1 tab PO Q4-6H PRN pain 06/14/21 08/07/22 325 mg tablet dapagliflozin 10 mg tablet 10 mg PO DAILY 03/23/22 08/07/22 (Farxiga) bupropion HCl 150 mg 24 hr tablet, 1 tab PO DAILY 07/12/22 08/07/22 extended release ipratropium 0.5 mg-albuterol 3 mg 1 amp inhalation 6XD PRN Shortness 07/12/22 08/07/22 (2.5 mg base)/3 mL nebulization Of Breath Or Wheezing soln torsemide 20 mg tablet 3 tab PO BID 07/12/22 08/07/22 albuterol sulfate 90 mcg/actuation 2 puff inhalation Q6H PRN Dyspnea 08/07/22 08/07/22 aerosol inhaler carvedilol 6.25 mg tablet 1 tab PO BID 08/07/22 08/07/22 losartan 50 mg tablet 2 tab PO DAILY 08/07/22 08/07/22 metolazone 2.5 mg tablet 1 tab PO DAILY 08/07/22 08/07/22 potassium chloride 20 mEq/15 mL 15 ml PO BID 08/07/22 08/07/22 oral liquid Previous Rx's Medication Instructions Recorded apixaban 5 mg tablet (Eliquis) 5 mg PO BID@0600,1800 #60 tabs 06/18/21 amiodarone 200 mg tablet 200 mg PO QAM 90 days #90 tabs 07/16/22 benzonatate 100 mg capsule 100 mg PO TID PRN cough #20 caps 08/07/22 spironolactone 50 mg tablet 50 mg PO QAM #30 tabs 08/20/22 Allergies Allergy/AdvReac Type Severity Reaction Status Date / Time sacubitril [From Entresto] AdvReac Rash Verified 08/06/22 21:54 valsartan [From Entresto] AdvReac Rash Verified 03/05/22 13:12 [facility] Past Medical History Medical History Acute on chronic systolic heart failure Artificial cardiac pacemaker Back injuries Cardiomyopathy CVA (cerebral vascular accident) History of COPD HTN (hypertension) ICD (implantable cardioverter-defibrillator) in place NSVT (nonsustained ventricular tachycardia) Surgical History Hx of cardiac cath (~08/2015) Family History Family History Father Prostate cancer Mother No problems noted. Social History Social History Household Members: None Housing: House Do you presently have visiting nurse or other home services: No Unable to assess alcohol history related to: Unknown Alcohol intake: never Patient Tobacco Use Status: Current everyday Tobacco user Tobacco use type: Cigarette Cigarettes Per Day: 5 Advance Directives: No Advance Directives Information Provided: No service: No Current occupational status: disabled Physical Exam ED Vital Signs: Vital Signs - 24 hr 10/09/22 20:17 Temperature 97.6 F Pulse Rate 107 H Respiratory Rate 18 Blood Pressure 115/84 Pulse Oximetry 96 Oxygen Delivery Method Room Air BMI result Body Mass Index 32.1 Course Course Course Narrative: rapid medical screen: -leg swelling intermittent for 1 yr, now legs more swollen, increasing weight last 2 to 3 days, takes water pills that start with f (furosemide) takes 60mg BID -leg pain, cannot stand due to pain -c/o of cough for 2 days, + orthopnea since december 2020 -hx of CHF and COPD, states going up the stairs makes sob much worse PE: weak, able to stand up, 98% RA, bilateral crackels , +3 pitting edema bilaterall, + JVD -labs ordered and cxr Medical Decision Making Lab Data Result diagrams: 10/09/22 21:12 10/09/22 21:12 Labs: Lab Results 10/09/22 10/09/22 10/09/22 Range/Units 21:12 21:12 21:12 WBC 9.2 (4.8-10.8) X10*3/uL RBC 4.65 (4.60-5.80) X10*6/uL Hgb 14.0 (14.0-18.0) g/dl Hct 43.2 (42.0-52.0) % MCV 92.9 (80.0-98.0) fL MCH 30.1 (27.0-33.0) pg MCHC 32.4 (31.0-36.0) g/dl RDW 18.7 H (11.0-16.0) % Plt Count 240 (160-400) X10*3/uL MPV 9.9 (9.4-12.4) fL Immature Gran % (Auto) 0.3 (0.0-0.4) % Neut % (Auto) 79.5 H (45-73) % Lymph % (Auto) 11.7 L (20-40) % [place] % (Auto) 6.6 (2-11) % Eos % (Auto) 0.9 (0-4) % Baso % (Auto) 1.0 (0-2) % Lymph # (Auto) 1.1 L (1.2-4.9) X10*3/uL [place] # (Auto) 0.6 (0.1-1.2) X10*3/uL Eos # (Auto) 0.1 (0.0-0.4) X10*3/uL Baso # (Auto) 0.1 (0.0-0.2) X10*3/uL Abs Immat Gran (auto) 0.03 (0.00-0.03) X10*3/uL Absolute Neuts (auto) 7.3 (2.0-8.3) x10*3/uL Absolute Nucleated RBC 0.000 (0.0-0.012) X10*3/uL Nucleated RBC % (auto) 0.0 (0.0-0.2) /100WBC PT (10.0-13.1) SEC INR (0.9-1.1) Sodium 138 (135-145) mmol/L Potassium 3.2 L (3.3-5.1) mmol/L Chloride 86 L (96-108) mmol/L Carbon Dioxide 31 H (22-29) mmol/L Anion Gap 24 H (12-20) BUN 28 H (9-16) mg/dL Creatinine 1.27 (0.5-1.4) mg/dL Estim Creat Clear Calc 75.5 Estimated GFR 59 Random Glucose 100 (60-115) mg/dL Lactic Acid (0.5-2.0) mmol/L Calcium 9.3 (8.4-10.2) mg/dL Total Bilirubin 2.6 H (0.0-1.0) mg/dL Direct Bilirubin 1.6 H (0.0-0.5) mg/dL AST 35 D (5-37) U/L ALT 35 (0-40) U/L Alkaline Phosphatase 110 (39-117) U/L Troponin I High Sens 21.7 (<3.5-35.0) ng/L B-Natriuretic Peptide (<100) pg/mL Total Protein 7.9 (6.5-8.0) g/dL Albumin 3.9 (3.5-5.0) g/dL COVID-19 ([facility]) (Negative) COVID-19 Clin Com 10/09/22 10/09/22 10/09/22 Range/Units 21:12 21:12 21:12 WBC (4.8-10.8) X10*3/uL RBC (4.60-5.80) X10*6/uL Hgb (14.0-18.0) g/dl Hct (42.0-52.0) % MCV (80.0-98.0) fL MCH (27.0-33.0) pg MCHC (31.0-36.0) g/dl RDW (11.0-16.0) % Plt Count (160-400) X10*3/uL MPV (9.4-12.4) fL Immature Gran % (Auto) (0.0-0.4) % Neut % (Auto) (45-73) % Lymph % (Auto) (20-40) % [place] % (Auto) (2-11) % Eos % (Auto) (0-4) % Baso % (Auto) (0-2) % Lymph # (Auto) (1.2-4.9) X10*3/uL [place] # (Auto) (0.1-1.2) X10*3/uL Eos # (Auto) (0.0-0.4) X10*3/uL Baso # (Auto) (0.0-0.2) X10*3/uL Abs Immat Gran (auto) (0.00-0.03) X10*3/uL Absolute Neuts (auto) (2.0-8.3) x10*3/uL Absolute Nucleated RBC (0.0-0.012) X10*3/uL Nucleated RBC % (auto) (0.0-0.2) /100WBC PT 21.8 H (10.0-13.1) SEC INR 1.9 H (0.9-1.1) Sodium (135-145) mmol/L Potassium (3.3-5.1) mmol/L Chloride (96-108) mmol/L Carbon Dioxide (22-29) mmol/L Anion Gap (12-20) BUN (9-16) mg/dL Creatinine (0.5-1.4) mg/dL Estim Creat Clear Calc Estimated GFR Random Glucose (60-115) mg/dL Lactic Acid 2.8 H* (0.5-2.0) mmol/L Calcium (8.4-10.2) mg/dL Total Bilirubin (0.0-1.0) mg/dL Direct Bilirubin (0.0-0.5) mg/dL AST (5-37) U/L ALT (0-40) U/L Alkaline Phosphatase (39-117) U/L Troponin I High Sens (<3.5-35.0) ng/L B-Natriuretic Peptide (<100) pg/mL Total Protein (6.5-8.0) g/dL Albumin (3.5-5.0) g/dL COVID-19 ([facility]) Positive A (Negative) COVID-19 Clin Com See Note 10/09/22 Range/Units 21:12 WBC (4.8-10.8) X10*3/uL RBC (4.60-5.80) X10*6/uL Hgb (14.0-18.0) g/dl Hct (42.0-52.0) % MCV (80.0-98.0) fL MCH (27.0-33.0) pg MCHC (31.0-36.0) g/dl RDW (11.0-16.0) % Plt Count (160-400) X10*3/uL MPV (9.4-12.4) fL Immature Gran % (Auto) (0.0-0.4) % Neut % (Auto) (45-73) % Lymph % (Auto) (20-40) % [place] % (Auto) (2-11) % Eos % (Auto) (0-4) % Baso % (Auto) (0-2) % Lymph # (Auto) (1.2-4.9) X10*3/uL [place] # (Auto) (0.1-1.2) X10*3/uL Eos # (Auto) (0.0-0.4) X10*3/uL Baso # (Auto) (0.0-0.2) X10*3/uL Abs Immat Gran (auto) (0.00-0.03) X10*3/uL Absolute Neuts (auto) (2.0-8.3) x10*3/uL Absolute Nucleated RBC (0.0-0.012) X10*3/uL Nucleated RBC % (auto) (0.0-0.2) /100WBC PT (10.0-13.1) SEC INR (0.9-1.1) Sodium (135-145) mmol/L Potassium (3.3-5.1) mmol/L Chloride (96-108) mmol/L Carbon Dioxide (22-29) mmol/L Anion Gap (12-20) BUN (9-16) mg/dL Creatinine (0.5-1.4) mg/dL Estim Creat Clear Calc Estimated GFR Random Glucose (60-115) mg/dL Lactic Acid (0.5-2.0) mmol/L Calcium (8.4-10.2) mg/dL Total Bilirubin (0.0-1.0) mg/dL Direct Bilirubin (0.0-0.5) mg/dL AST (5-37) U/L ALT (0-40) U/L Alkaline Phosphatase (39-117) U/L Troponin I High Sens (<3.5-35.0) ng/L B-Natriuretic Peptide 2704 H (<100) pg/mL Total Protein (6.5-8.0) g/dL Albumin (3.5-5.0) g/dL COVID-19 ([facility]) (Negative) COVID-19 Clin Com Discharge Plan Discharge Clinical Impression: Bilateral lower extremity edema Patient Disposition: Left Without Being Seen Interventions: LWBS Worksheet Last Done: 10/09/22 23:21 Discharge Date/Time: 10/09/22 23:22
[2022-10-09 20:17] VITALS: BP 115/84; PULSE 107; RESP 18; TEMP 36.4; O2SAT 96; BMI 32.1
--- NOTE | 2022-10-09 20:19 | ECG_ITS ---
Test Reason : CHF Blood Pressure : / mmHG Vent. Rate : 103 BPM Atrial Rate : 103 BPM P-R Int : 166 ms QRS Dur : 100 ms QT Int : 390 ms P-R-T Axes : 067 -48 085 degrees QTc Int : 510 ms Sinus tachycardia Possible Left atrial enlargement Left anterior fascicular block Intra-ventricular conduction delay Nonspecific T wave abnormality Abnormal ECG When compared with ECG of 06-AUG-2022 22:04, Premature ventricular complexes are no longer Present T wave inversion no longer evident in Lateral leads Referred By: Kassidy Wallace Electronically Signed By:YASH GASPAR MD
[2022-10-09 21:20] LABS: MANUAL DIFF FLAG NO
[2022-10-09 21:21] LABS: Basophils Absolute Auto 0.1 X10*3/uL (0.0-0.2); Eosinophils Absolute Auto 0.1 X10*3/uL (0.0-0.4); Eosinophils Percent Auto 0.9 % (0-4); Hematocrit 43.2 % (42.0-52.0); Imm Gran Abs Auto 0.03 X10*3/uL (0.00-0.03); Imm Gran Pct Auto 0.3 % (0.0-0.4); Lymphocytes Absolute Auto 1.1 X10*3/uL (1.2-4.9); Lymphocytes Percent Auto 11.7 % (20-40); Mean Corpuscular HGB Conc 32.4 g/dl (31.0-36.0); Mean Corpuscular Hemoglobin 30.1 pg (27.0-33.0); Mean Corpuscular Volume 92.9 fL (80.0-98.0); Mean Platelet Volume 9.9 fL (9.4-12.4); Monocytes Absolute Auto 0.6 X10*3/uL (0.1-1.2); Monocytes Percent Auto 6.6 % (2-11); Neutrophils Absolute Auto 7.3 x10*3/uL (2.0-8.3); Neutrophils Percent Auto 79.5 % (45-73); Platelet Count 240 X10*3/uL (160-400); Red Blood Count 4.65 X10*6/uL (4.60-5.80); Red Cell Distribution Width 18.7 % (11.0-16.0); White Blood Count 9.2 X10*3/uL (4.8-10.8)
[2022-10-09 21:28] LABS: INTERNATIONAL NORM RATIO 1.9 (0.9-1.1); Prothrombin Time 21.8 SEC (10.0-13.1)
[2022-10-09 21:39] LABS: COVID-19 Test Positive (Negative)
[2022-10-09 21:44] LABS: Lactic Acid 2.8 mmol/L (0.5-2.0)
[2022-10-09 21:49] LABS: B Type Natriuretic Peptide 2704 pg/mL (<100); Troponin-I High Sensitivity 21.7 ng/L (<3.5-35.0)
[2022-10-09 21:54] LABS: Alanine Aminotransferase 35 U/L (0-40); Albumin Level 3.9 g/dL (3.5-5.0); Alkaline Phosphatase 110 U/L (39-117); Anion Gap 24 (12-20); Aspartate Amino Transferase 35 U/L (5-37); Bilirubin Direct 1.6 mg/dL (0.0-0.5); Bilirubin Total 2.6 mg/dL (0.0-1.0); Blood Urea Nitrogen 28 mg/dL (9-16); Calcium 9.3 mg/dL (8.4-10.2); Carbon Dioxide 31 mmol/L (22-29); Chloride 86 mmol/L (96-108); Creatinine Clr Calc Pharmacy 75.5; Estimated Glomerular Filt Rate 59; Glucose Random 100 mg/dL (60-115); Potassium 3.2 mmol/L (3.3-5.1); Sodium 138 mmol/L (135-145); Total Protein 7.9 g/dL (6.5-8.0)
--- OUTSIDE RECORDS SUMMARY | 2022-10-09 22:50 | XMS_ITS | Continuity of Care Document ---
:1970 Author Organization [facility] [address] [place] [address]- Care Team Providers Name Role Phone Mike Duong MD Primary Care Physician Encounter [facility] Date(s): 06/13/22 - 07/13/[address] [place], [place] [address] Attending Physician: Admtr, [id number] Admitting Physician: Admtr, [id number] Referring Physician: Admtr, Ar8 Allergies, Adverse Reactions, Alerts Substance Reaction Severity Status Entresto Rash Active Immunizations Given and Recorded Vaccine Date Status Refusal Reason SARS-CoV-2 (COVID-19) mRNA-1273 vaccine 10/19/21 Recorded SARS-CoV-2 (COVID-19) mRNA-1273 vaccine 02/28/21 Recorded SARS-CoV-2 (COVID-19) mRNA-1273 vaccine 01/31/21 Recorded influenza virus vaccine, inactivated 10/18/21 Recorded influenza virus vaccine, inactivated 01/14/17 Given pneumococcal 23-valent vaccine 01/14/17 Given Medications acetaminophen-hydrocodone 325 mg-10 mg oral tablet 1 tablet, By Mouth, PRN pain, EVERY 4 TO 6 HOURS, 0 Refills Start Date: 04/05/21 Status: OrderedAldactone 50 mg oral tablet 1 tablet = 50 mg, By Mouth, Daily, 0 Refills, Maintenance, 06/06/22 10:46:00 EDT, Partial fill upon patient request if the prescription is for a schedule II opioid drug. Start Date: 06/06/22 Status: Orderedamiodarone 200 mg oral tablet 200 mg, 1, tablet, By Mouth, Daily Start Date: 04/05/21 Status: Orderedatorvastatin 40 mg oral tablet = 40 mg, By Mouth, Daily at bedtime, # 30 tablet, 0 Refills, Maintenance, Tablet, Print Requisition Start Date: 03/05/16 Status: OrderedbuPROPion 150 mg/24 hours (XL) oral tablet, extended release 1 tablet = 150 mg, By Mouth, Daily, # 30 tablet, 0 Refills, Maintenance, 04/11/22 12:19:00 EDT, XL Tablet, [facility], 1 tablet By Mouth Daily, 172.2, cm, 04/11/22 8:24:00 EDT, Height, 94.3, kg, 04/09/22 13:42:00 EDT, Dry Weight Start Date: 04/11/22 Status: Ordereddapagliflozin 10 mg oral tablet 1 tablet = 10 mg, By Mouth, Daily, # 90 tablet, 3 Refills, Maintenance, 04/23/22 12:03:00 EDT, Tablet, [facility], Partial fill upon patient request if the prescription is for a schedule II opioid drug., 172.2, cm, 04/23/22 11:34:... Start Date: 04/23/22 Stop Date: 04/18/23 Status: OrderedEliquis 5 mg oral tablet 1 tablet = 5 mg, By Mouth, 2 times a day Start Date: 11/26/21 Status: OrderedIncruse Ellipta 62.5 mcg/inh inhalation powder 1 puffs, Inhalation, Every 24 hours Start Date: 06/06/22 Status: Orderedmelatonin 5 mg oral tablet 1 tablet = 5 mg, By Mouth, Daily, PRN for insomnia, 2 hours before bed, Maintenance, 04/05/21 15:43:00 EDT, Tablet Start Date: 04/05/21 Status: OrderedNarcan 4 mg/0.1 mL nasal spray 0.1 mL = 4 mg, Naris, Left, Once, PRN as needed, repeat dose in 2-3 minutesalternasting nares, Maintenance, 04/05/21 15:56:00 EDT, ; Start Date: 04/05/21 Status: Orderednicotine 4 mg oral transmucosal gum 1 gum, By Mouth, Every 4 hours, PRN as needed, Maintenance, 11/26/21 11:20:00 EST, ; Start Date: 11/26/21 Status: OrderedProAir HFA 90 mcg/inh inhalation aerosol 2 puffs, Inhalation, Every 6 hours, PRN Wheezing/Shortness of Breath, 0 Refills, Maintenance, 06/06/22 10:46:00 EDT, Partial fill upon patient request if the prescription is for a schedule II opioid drug. Start Date: 06/06/22 Status: Orderedtorsemide 20 mg oral tablet 3 tablet = 60 mg, By Mouth, 2 times a day, # 180 tablet, 1 Refills, Maintenance, 06/14/22 15:42:00 EDT, Tablet, [facility], 173, cm, 06/14/22 14:08:00 EDT, Height, 89, kg, 06/07/22 13:13:00 EDT, Dry Weight Start Date: 06/14/22 Status: Ordered Problem List Condition Effective Dates Status Health Status Informant Anxiety(Confirmed) Active Cardiomyopathy with implantable Active cardioverter-defibrillator(Confirmed) Cervical radiculopathy(Confirmed) Active Cigarette smoker(Confirmed) Active Depression(Confirmed) Active Failed back syndrome(Confirmed) Active HTN (hypertension)(Confirmed) Active HLD (hyperlipidemia)(Confirmed) Active Limitation due to Active disability(Confirmed)1 Myalgia(Confirmed) Active Obese class I(Confirmed) Active TYRONE on CPAP(Confirmed) Active Atrial fibrillation(Confirmed) Active Restrictive lung disease(Confirmed) Active Tobacco dependence(Confirmed) Active 1initial Oswestry Disability Scale: 52% ( severe disability ) on 01/20/2013; initial [place] Back Pain Scale: 36 on 01/20/2013 Social History Social History Type Response Smoking Status 10 or more cigarettes (1/2 p ack or more)/day in last 30 days entered on: 06/06/22 Sex
--- OUTSIDE RECORDS SUMMARY | 2022-10-09 22:50 | XMS_ITS | Continuity of Care Document ---
:1970 Author Organization [facility] Address [address] [place] [id number]- Care Team Providers Name Role Phone Rhoda VASQUEZ, Mike Primary Care Physician Encounter [facility] Date(s): 11/26/21 - 12/08/[address] [id number] Discharge Disposition: A-D/C Home Attending Physician: Torres VASQUEZ, Michael Castillo Admitting Physician: Sabas Pickett MD Referring Physician: Not on Staff, Referring MD Allergies, Adverse Reactions, Alerts Substance Reaction Severity Status NKA Active Immunizations Given and Recorded Vaccine Date [...] HOURS, 0 Refills Start Date: 04/05/21 Status: Orderedamiodarone 200 mg oral tablet 200 mg, 1, tablet, By Mouth, Daily Start Date: 04/05/21 Status: Orderedatorvastatin 40 mg oral tablet = 40 mg, By Mouth, Daily at bedtime, # 30 tablet, 0 Refills, Maintenance, Tablet, Print Requisition Start Date: 03/05/16 Status: Orderedcarvedilol 3.125 mg oral tablet 3.125 mg, 1, tablet, By Mouth, 2 times a day, Maintenance, 11/26/21 11:16:00 EST, ; Start Date: 11/26/21 Status: Orderedcarvedilol 3.125 mg oral tablet 3.125 mg, Tablet, By Mouth, Hold for: SBP<90, HR<60, 12/08/21 9:00:00 EST Start Date: 12/08/21 Stop Date: 12/08/21 Status: Completedcyclobenzaprine 10 mg oral tablet 10 mg, 1, tablet, By Mouth, 3 times a day Start Date: 04/05/21 Status: Orderedcyclobenzaprine 10 mg oral tablet 10 mg, Tablet, By Mouth, 12/08/21 9:00:00 EST Start Date: 12/08/21 Stop Date: 12/08/21 Status: CompletedEliquis 5 mg oral tablet 1 tablet = 5 mg, By Mouth, 2 times a day Start Date: 11/26/21 Status: Orderedfurosemide 40 mg oral tablet 40 mg, 1, tablet, By Mouth, 2 times a day, Maintenance, 11/26/21 11:11:00 EST, ; Start Date: 11/26/21 Status: Orderedgabapentin 100 mg oral capsule 100 mg, Capsule, By Mouth, 12/08/21 9:00:00 EST Start Date: 12/08/21 Stop Date: 12/08/21 Status: Completedlosartan 50 mg oral tablet 1 tablet = 50 mg, By Mouth, Daily in AM Start Date: 04/05/21 Status: Orderedlosartan 50 mg oral tablet 50 mg, Tablet, By Mouth, Hold for: SBP<100, 12/08/21 9:00:00 EST Start Date: 12/08/21 Stop Date: 12/08/21 Status: Completedmelatonin 5 mg oral tablet 1 tablet = [...] 11:20:00 EST, ; Start Date: 11/26/21 Status: Orderedsertraline 25 mg oral tablet 1 tablet = 25 mg, By Mouth, Daily Start Date: 04/05/21 Status: Orderedspironolactone 25 mg oral tablet 25 mg, 1, tablet, By Mouth, Daily in AM Start Date: 04/05/21 Status: OrderedViagra 100 mg oral tablet 1/2 tablet, By Mouth, PRN as needed, approximately 1 hour before sexual activity Start Date: 04/05/21 Status: Ordered Problem List Condition Effective Dates Status Health Status Informant Acute HFrEF (heart failure with Active reduced ejection fraction)(Confirmed) Anxiety(Confirmed) Active Atrial fibrillation(Confirmed) Active Cardiomyopathy with implantable Active cardioverter-defibrillator(Confirmed) Cervical radiculopathy(Confirmed) Active Cigarette smoker(Confirmed) Active Depression(Confirmed) Active Failed back syndrome(Confirmed) Active HTN (hypertension)(Confirmed) Active HLD (hyperlipidemia)(Confirmed) Active Limitation due to Active disability(Confirmed)1 Myalgia(Confirmed) Active TYRONE on CPAP(Confirmed) Active Restrictive lung disease(Confirmed) Active Tobacco dependence(Confirmed) Active 1initial Oswestry Disability Scale: 52% ( severe disability ) on 01/20/2013; initial [place] Back Pain Scale: 36 on 01/20/2013 Results Orders for Microbiology Reports Name Date Anaerobic Culture (ANAEROBIC CULTURE) 11/26/21 AFB Culture w/ AFB Smear, Respiratory (Culture AFB w/ AFB Smear, 11/26/21 Respiratory) Fungal Culture, Respiratory (Culture Fungal Respirator y) 11/26/21 Sterile Body Fluid Culture W/ Gram Smear 11/26/21 Blood Culture 11/25/21 Blood Culture #2 11/25/21 Microbiology Reports TEST:Anaerobic Culture STATUS:Auth (Verified) BODY SITE: SOURCE:PLEURA COLLECTED DATE/TIME:11/26/21 5:10 PMAnaerobic Culture SPECIMEN DESCRIPTION : PLEURAL FLUID SPECIAL REQUESTS : NONE CULTURE : NO ANAEROBES ISOLATED REPORT STATUS : FINAL 12/01/2021TEST:Sterile Fluid Culture STATUS:Auth (Verified) BODY SITE: SOURCE:PLEURA COLLECTED DATE/TIME:11/26/21 5:10 PMSterile Fluid Culture SPECIMEN DESCRIPTION : PLEURAL FLUID SPECIAL REQUESTS : NONE GRAM STAIN : 1+ RBC'S 1+ WHITE BLOOD CELLS NO ORGANISMS SEEN CULTURE : NO GROWTH 2 DAYS REPORT STATUS : FINAL 11/29/2021TEST:AFB Culture w/AFB Smear, Respiratory STATUS:Unauthenticated BODY SITE: SOURCE:Pleura COLLECTED DATE/TIME:11/26/21 5:10 PMAFB Culture w/AFB Smear, Respiratory SPECIMEN DESCRIPTION : Pleural fluid, left LUNGL SPECIAL REQUESTS : NONE DIRECT EXAM : NO ACID FAST BACILLI SEEN ON DIRECT SMEAR, TEST PERFORMED AT [facility] No acid fast bacilli seen on concentrated smear. Per [facility] protocol, this specimen was concentrated prior to smear preparation. [facility] performed [facility], [address] [place] [id number]. CULTURE : SPECIMEN SENT TO [facility] OF [facility], [place], [place] REPORT STATUS : PRELIMINARY REPORT TEST:Fungal Culture, Respiratory STATUS:Unauthenticated BODY SITE: SOURCE:Pleura COLLECTED DATE/TIME:11/26/21 5:10 PMFungal Culture, Respiratory SPECIMEN DESCRIPTION : Pleural fluid, left LUNGL SPECIAL REQUESTS : NONE DIRECT EXAM : NO FUNGAL ELEMENTS OBSERVED CULTURE : NO FUNGI ISOLATED AFTER 10 DAYS REPORT STATUS : PRELIMINARY REPORT TEST:Blood Culture STATUS:Auth (Verified) BODY SITE: SOURCE:Blood COLLECTED DATE/TIME:11/25/21 10:56 PMBlood Culture SPECIMEN DESCRIPTION : BLOOD LT. FOREARM SPECIAL REQUESTS : NONE CULTURE : NO GROWTH 5 DAYS. REPORT STATUS : FINAL 12/01/2021TEST:Blood Culture, Second Order STATUS:Auth (Verified) BODY SITE: SOURCE:Blood COLLECTED DATE/TIME:11/25/21 10:56 PMBlood Culture, Second Order SPECIMEN DESCRIPTION : BLOOD RAC SPECIAL REQUESTS : NONE CULTURE : NO GROWTH 5 DAYS. REPORT STATUS : FINAL 2Radiology Reports (Most Recent Ten) Exam Date Time Procedure Performing Provider Status 12/08/21 12:55 PM Chest Portable Kiera Liu; Auth (Verified ) Notes:(Chest Portable) Reason For Exam: s/p removal chest tube;Tube Placement RESULT: Chest Portable Chest Portable Reason: Tube Placement; s p removal chest tube; Clinical Question(s): Pneumothorax COMPARISON: 5:47 AM on the same date. FINDINGS: LINES AND TUBES: The left pleural space drainage catheter has been removed. LUNGS AND PLEURA: There is stable haziness in the left mid and lower hemithorax with a few increased interstitial markings. The left costophrenic angle remains blunted and there is some haziness along the left hemidiaphragm. Lungs are otherwise clear with normal vascularity. No right pleural effusion. No pneumothorax. HEART, MEDIASTINUM AND BREANNA: The heart is enlarged with a single-lead ICD. Normal upper mediastinal and hilar contour. BONES AND SOFT TISSUES: No acute abnormality. IMPRESSION: Interval removal of left pleural space drainage catheter. No pneumothorax. Persistent atelectasis/scarring in the lower left lung with small left pleural effusion versus pleural thickening. WSN: [id number] Ordering Physician: Jannet Fine Dictated By: Jose Luis Puente MD Dictated Date/Time: 12/08/21 1:10 pm Reviewed By: Jose Luis Puente MD Signed By: Jose Luis Puente MD Signed Date/Time: 12/08/21 1:10 pm Transcribed By: ROSA M Transcribed Date/Time: 12/08/21 1:08 pm Exam Date Time Procedure Performing Provider Status 12/08/21 5:43 AM Chest 2 Views Frontal and Lat Abiola Jiang; Au th (Verified) Notes:(Chest 2 Views Frontal and Lat) Reason For Exam: Follow-Up Pleural EffusionRESULT: Chest 2 Views Frontal and Lat Chest 2 Views Frontal and Lat Reason: Follow-Up Pleural Effusion; COMPARISON: 12/07/2021. FINDINGS: LINES AND TUBES: There is a pigtail basilar left pleural drain unchanged. Left subclavian AICD device and its lead appear unchanged. LUNGS AND PLEURA: Trace left-sided pleural effusion and basilar atelectasis versus scarring unchanged. No pneumothorax. HEART, MEDIASTINUM AND BREANNA: Heart size is upper limits of normal unchanged. Normal upper mediastinal and hilar contour. BONES AND SOFT TISSUES: No acute abnormality. IMPRESSION: Slight interval decrease in left-sided effusion, otherwise findings appear unchanged. WSN: [id number] Ordering Physician: Jose Sawyer Dictated By: Ajit Castillo MD Dictated Date/Time: 12/08/21 11:08 a Reviewed By: Ajit Castillo MD Signed By: Ajit Castillo MD Signed Date/Time: 12/08/21 11:08 am Transcribed By: ROSA M Transcribed Date/Time: 12/08/21 11:06 am Exam Date Time Procedure Performing Provider Status 12/07/21 5:35 AM Chest 2 Views Frontal and Lat Mónica Voss [facility] (Verified) Notes:(Chest 2 Views Frontal and Lat) Reason For Exam: Follow-Up Pleural Effusion;Follow-Up Pleural EffusionRESULT: Chest 2 Views Frontal and Lat Chest 2 Views Frontal and Lat REASON: Follow-Up Pleural Effusion; Clinical Question(s): Pleural Effusion COMPARISON: CT chest 12/06/2021. Chest radiograph 12/05/2021. FINDINGS: LINES AND TUBES: Single lead left subclavian pacer/ICD is intact. Left pleural pigtail drainage catheter is unchanged. LUNGS AND PLEURA: Unchanged left retrocardiac airspace opacity. Small left hydropneumothorax is not significantly changed. Right lung is clear. HEART, MEDIASTINUM AND BREANNA: Heart is normal in size. Normal upper mediastinal and hilar contour. BONES AND SOFT TISSUES: No acute abnormality. IMPRESSION: Unchanged small left hydropneumothorax, the air component is better seen on recent CT. Unchanged left left lower lobe airspace disease. I have personally reviewed the images and I agree with this report. WSN: [id number] Ordering Physician: Michael Macdonald Dictated By: Aldo Jeff DO Dictated Date/Time: 12/07/21 7:47 am Reviewed By: Wisam Greer MD Signed By: Wisam Greer MD Signed Date/Time: 12/07/21 7:52 am Transcribed By: ROSA M Transcribed Date/Time: 12/07/21 6:54 am Exam Date Time Procedure Performing Provider Status 12/05/21 5:49 AM Chest 2 Views Frontal and Lat Armida Virk ; Kyle (Verified) Notes:(Chest 2 Views Frontal and Lat) Reason For Exam: Follow-Up Pleural EffusionRESULT: Chest 2 Views Frontal and Lat Chest 2 Views Frontal and Lat REASON: Follow-Up Pleural Effusion; Clinical Question(s): Pleural Effusion COMPARISON: Multiple priors, most recent 12/04/2020 FINDINGS: LINES AND TUBES: Single lead left subclavian pacer/defibrillator wire is intact. Unchanged position of left-sided pleural catheter. LUNGS AND PLEURA: Left-sided hydropneumothorax does not appear to have significantly changed in size from prior study,although the fluid component may have minimally increased. There is persistent linear opacities throughout the left mid to lower lung. The right lung is relatively clear. No pleural effusion or pneumothorax on the right. HEART, MEDIASTINUM AND BREANNA: Mild prominence of the cardiac silhouette, unchanged. Normal upper mediastinal and hilar contour. BONES AND SOFT TISSUES: No acute abnormality. IMPRESSION: Left-sided hydropneumothorax does not appear to have significantly changed in size from prior study,although the fluid component has minimally increased with slight decrease in gas component. Left-sided pleural catheter is unchanged in position. I have personally reviewed the images and I agree with this report. WSN: [id number] Ordering Physician: Desiree Grijalva Dictated By: Baljinder Suresh DO Dictated Date/Time: 12/05/21 8:57 am Reviewed By: Amando Laboy MD Signed By: Amando Laboy MD Signed Date/Time: 12/05/21 9:02 am Transcribed By: ROSA M Transcribed Date/Time: 12/05/21 8:46 am Exam Date Time Procedure Performing Provider Status 12/04/21 5:46 AM Chest 2 Views Frontal and Lat Charisse Multani; Modified Notes:(Chest 2 Views Frontal and Lat) Reason For Exam: Follow-Up Pleural EffusionRESULT: Chest 2 Views Frontal and Lat Chest 2 Views Frontal and Lat CLINICAL INDICATION: Reason: Follow-Up Pleural Effusion; Clinical Question(s): Pleural Effusion COMPARISON: Chest x-ray, 12/03/2021. FINDINGS: Left-sided pacemaker is seen with single lead directed towards the right ventricle. Pigtail catheter at the left lung base is unchanged. Loculated hydropneumothorax at the lateral left lung base is again seen with decreased air component. Streaky density in the left midlung field likely represents atelectasis. The cardiac silhouette is enlarged, unchanged. There is calcification of the aortic arch. The right lung is clear. No acute osseous abnormality is noted. IMPRESSION: Left basilar hydropneumothorax is again seen with decreased air component compared to the prior day. WSN: [id number] Ordering Physician: Desiree Grijalva Dictated By: Val Phipps MD Dictated Date/Time: 12/04/21 9:03 am Reviewed By: Val Phipps MD Signed By: Val Phipps MD Signed Date/Time: 12/04/21 9:03 am Transcribed By: ROSA M Transcribed Date/Time: 12/04/21 9:01 am Exam Date Time Procedure Performing Provider Status 12/03/21 8:13 AM Chest 2 Views Frontal and Lat Ludy Rapp; Kyle (Verified) Notes:(Chest 2 Views Frontal and Lat) Reason For Exam: Follow-Up Pleural EffusionRESULT: Chest 2 Views Frontal and Lat Chest 2 Views Frontal and Lat REASON: Follow-Up Pleural Effusion; Clinical Question(s): Pleural Effusion COMPARISON: Multiple priors most recently 12/02/2021 FINDINGS: LINES AND TUBES: Single lead left subclavian ICD wire is intact. Left pleural drainage catheter, unchanged in position. LUNGS AND PLEURA: Bibasilar atelectasis, increased. Normal pulmonary vascularity. Left basilar hydropneumothorax, with increased pleural fluid. HEART, MEDIASTINUM AND BREANNA: Moderate prominence of the cardiac silhouette, unchanged. Normal upper mediastinal and hilar contour. BONES AND SOFT TISSUES: No acute abnormality. IMPRESSION: 1. Increasing bibasilar atelectasis. 2. Left basilar hydropneumothorax with increasing fluid component. I have personally reviewed the images and I agree with this report. WSN: [id number] Ordering Physician: Valentina Camacho Dictated By: Melly Aguayo DO Dictated Date/Time: 12/03/21 9:08 am Reviewed By: Amando Laboy MD Signed By: Amando Laboy MD Signed Date/Time: 12/03/21 9:13 am Transcribed By: ROSA M Transcribed Date/Time: 12/03/21 8:46 am Exam Date Time Procedure Performing Provider Status 12/02/21 7:35 AM Chest 2 Views Frontal and Lat Mónica Voss [facility] (Verified) Notes:(Chest 2 Views Frontal and Lat) Reason For Exam: Follow-Up Pleural EffusionRESULT: Chest 2 Views Frontal and Lat Examination: Chest performed on 12/02/2021. History: Follow-up pleural effusion. Findings: Frontal and lateral views of the chest are compared to a prior study dated 12/01/2021. Left pleural drainage catheter and AICD are redemonstrated. There is stable cardiomegaly. The loculated left basilar hydropneumothorax is similar to the prior study. The right lung is clear. The osseous structures are unremarkable. IMPRESSION: Stable left hydropneumothorax. WSN: [id number] Ordering Physician: Valentina Camacho Dictated By: Corazon Javier MD Dictated Date/Time: 12/02/21 10:57 a Reviewed By: Corazon Javier MD Signed By: Corazon Javier MD Signed Date/Time: 12/02/21 10:57 am Transcribed By: ROSA M Transcribed Date/Time: 12/02/21 10:56 am Exam Date Time Procedure Performing Provider Status 12/01/21 7:35 AM Chest 2 Views Frontal and Lat Betsy Olivas; Kyle (Verified) Notes:(Chest 2 Views Frontal and Lat) Reason For Exam: Follow-Up Pleural EffusionRESULT: Chest 2 Views Frontal and Lat PA and lateral chest dated December 01, 2021. Comparison films are from November 30, 2021. HISTORY: Follow-up pleural effusion. FINDINGS: The cardiac silhouette is mildly increased in size and unchanged. A pacemaker/before mealsis present on the left. The wire extends to overlie the right ventricle. A small bore chest tube is present on the left, unchanged. A small loculated hydropneumothorax on the left is demonstrated. Degenerative changes in the spine. IMPRESSION: Stable small loculated hydropneumothorax at the left lung base. Examination [id number]. Thank you for allowing me to participate in the care of this patient. WSN: [id number] Ordering Physician: Valentina Camacho Dictated By: Hakeem Mitchell MD Dictated Date/Time: 12/01/21 11:16 a Reviewed By: Hakeem Mitchell MD Signed By: Hakeem Mitchell MD Signed Date/Time: 12/01/21 11:16 am Transcribed By: ROSA M Transcribed Date/Time: 12/01/21 11:15 am Exam Date Time Procedure Performing Provider Status 11/30/21 2:34 AM Chest 2 Views Frontal and Lat Robles Mantilla (Verified) Notes:(Chest 2 Views Frontal and Lat) Reason For Exam: Follow-Up Pleural EffusionRESULT: Chest 2 Views Frontal and Lat Chest 2 Views Frontal and Lat Reason: Follow-Up Pleural Effusion; Clinical Question(s): Pleural Effusion COMPARISON: 11/28/2021. FINDINGS: LINES AND TUBES: Again seen is a single lead intracardiac pacemaker defibrillator. A chest tube in the left lung base. LUNGS AND PLEURA: There is persistent mild blunting of the left costophrenic angle compatible with a residual small left pleural effusion. Again seen is a hazy opacity left lung base which may represent subsegmental atelectasis versus airspace disease. No pneumothorax. HEART, MEDIASTINUM AND BREANNA: Again seen is enlarged cardiac silhouette. Normal upper mediastinal and hilar contour. BONES AND SOFT TISSUES: No acute abnormality. IMPRESSION: Stable abnormal chest radiograph as detailed above. WSN: [id number] Ordering Physician: Desiree Grijalva Dictated By: Maribel Webb MD Dictated Date/Time: 11/30/21 7:55 am Reviewed By: Maribel Webb MD Signed By: Maribel Webb MD Signed Date/Time: 11/30/21 7:55 am Transcribed By: ROSA M Transcribed Date/Time: 11/30/21 7:52 am Exam Date Time Procedure Performing Provider Status 11/28/21 7:50 AM Chest 2 Views Frontal and Lat Jonathan Lu (Verified) Notes:(Chest 2 Views Frontal and Lat) Reason For Exam: Tube PlacementRESULT: Chest 2 Views Frontal and Lat Chest 2 Views Frontal and Lat INDICATION: Tube placement COMPARISON: 11/27/2021, 11/26/2021 FINDINGS: LINES AND TUBES: Single lead left subclavian pacer/AICD wire is intact. Left pleural catheter is in unchanged position, its tip and side-ports projecting over the left posterior lung base. LUNGS AND PLEURA: Left hydropneumothorax, with significantly decreased hydrothorax component and increased but still small pneumothorax component. Left mid to lower lung atelectasis. Right lung is clear. No right pleural effusion. HEART, MEDIASTINUM AND BREANNA: Mild prominence of the cardiac silhouette. Normal upper mediastinal and hilar contour. BONES AND SOFT TISSUES: No acute abnormality. Minimal left chest wall iatrogenic emphysema. IMPRESSION: Left hydropneumothorax, with significantly decreased hydrothorax component and increased but still small pneumothorax component. Left pleural catheter is in stable position. I have personally reviewed the images and I agree with this report. WSN: [id number] Ordering Physician: Saul March Dictated By: Gray Camarena DO Dictated Date/Time: 11/28/21 9:42 am Reviewed By: Thaddeus Ha MD, V Signed By: Thaddeus Ha MD, V Signed Date/Time: 11/28/21 9:47 am Transcribed By: ROSA M Transcribed Date/Time: 11/28/21 9:32 am Vital Signs Most recent to oldest 1 2 3 [Reference Range]: Height 173 cm 173 cm 173 cm (12/08/21 11:56 AM) (12/08/21 6:44 AM) (12/07/21 10:51 PM) Weight 88.3 kg 90.8 kg 90.8 kg (11/28/21 6:17 AM) (11/27/21 6:19 AM) (11/27/21 2:52 AM) Oxygen Saturation [94-100 100 % 100 % 100 % %] (12/08/21 11:56 AM) (12/08/21 6:44 AM) (12/07/21 10:51 PM) Pulse Rate [55-90 bpm] 96 bpm 90 bpm 90 bpm *H* (12/08/21 9:33 AM) (12/08/21 6:44 AM ) (12/08/21 11:56 AM) Body Mass Index 29.5 30.34 30.34 [18.5-24.99] *H* *>HHI* *>HHI* (11/28/21 6:17 AM) (11/27/21 6:19 AM) (11/27/21 2:52 AM) Blood Pressure 93/66 mm Hg 99/69 mm Hg 99/69 mm Hg [90-138/55-84 mm Hg] (12/08/21 11:56 AM) (12/08/21 9:33 AM) (12/08/21 9:33 AM) Respiratory Rate [16-30 18 br/min 19 br/min 19 br/mi n br/min] (1/8/22 11:56 AM) (12/08/21 9:33 AM) (12/08/21 9:33 AM) Temperature [96.8-100.4 97.3 DegF 97.7 DegF 98.2 Deg F DegF] (12/08/21 11:56 AM) (12/08/21 6:44 AM) (12/07/21 10:51 PM) Mode of Delivery (Oxygen) Room air Room air Room a ir (12/08/21 11:56 AM) (12/08/21 6:44 AM) (12/07/21 10:51 PM) Blood pressure sites Arm, right Arm, right Arm, right (12/08/21 11:56 AM) (12/08/21 6:44 AM) (12/07/21 10:51 PM) Temperature Route Axillary Oral Oral (12/08/21 11:56 AM) (12/08/21 6:44 AM) (12/07/21 10:51 PM) Dry Weight 90.8 kg 100 kg 100 kg (11/27/21 2:52 AM) (11/26/21 2:24 PM) (11/26/21 11:09 AM) Weight Obtained Via Bed scale Bed scale (11/28/21 6:17 AM) (11/27/21 6:19 AM) Social History Social History Type Response Smoking Status Current every day smoker entered on: 11/07/15 Sex
--- OUTSIDE RECORDS SUMMARY | 2022-10-09 22:50 | XMS_ITS | Continuity of Care Document ---
:1970 Author Organization [facility] Address [address] [place] [id number]- Care Team Providers Name Role Phone Mike Duong MD Primary Care Physician [place] [facility] [place]17[place]22 - 07/21/22 [facility] [address] [place] [id number]- Attending Physician: Ana Cristina Barry MD Admitting Physician: Ana Cristina Barry MD Allergies, Adverse Reactions, Alerts Substance Reaction [...] Refills, Maintenance, 04/11/22 12:19:00 EDT, XL Tablet, [facility], 1 tablet By Mouth Daily, 172.2, cm, 04/11/22 8:24:00 EDT, Height, 94.3, kg, 04/09/22 13:42:00 EDT, Dry Weight Start Date: 04/11/22 Status: Ordereddapagliflozin 10 mg oral tablet 1 tablet = 10 mg, By Mouth, Daily, # 90 tablet, 3 Refills, Maintenance, 04/23/22 12:03:00 EDT, Tablet, [facility], Partial fill upon patient request if [...] 1 Refills, Maintenance, 06/14/22 15:42:00 EDT, Tablet, [facility], 173, cm, 06/14/22 14:08:00 EDT, [...] ( severe disability ) on 01/20/2013; initial [place] Back Pain Scale: 36 on 01/20/2013 Social History Social History Type Response Smoking Status 10 or more cigarettes (1/2 p ack or more)/day in last 30 days entered on: 06/06/22 Sex
--- OUTSIDE RECORDS SUMMARY | 2022-10-09 22:50 | XMS_ITS | Continuity of Care Document ---
:1970 Author Organization [facility] Address [address] [place] [phone]- Care Team Providers Name Role Phone Mike Duong MD Primary Care Physician [place] [facility] [place] - 05/24/[address] [address] Discharge Disposition: A-D/C Home Attending Physician: Kan Tripathi DO Admitting Physician: Kan Tripathi DO Referring Physician: Dillon Mejia MD Allergies, Adverse Reactions, Alerts Substance Reaction Severity Status Entresto Rash Active Immunizations Given and Recorded Vaccine Date Status Refusal Reason SARS-CoV-2 (COVID-19) mRNA-1273 vaccine 10/19/21 Recorded SARS-CoV-2 (COVID-19) mRNA-1273 vaccine 02/28/21 Recorded SARS-CoV-2 (COVID-19) mRNA-1273 vaccine 01/31/21 Recorded influenza virus vaccine, inactivated 10/18/21 Recorded influenza virus vaccine, inactivated 01/14/17 Given pneumococcal 23-valent vaccine 01/14/17 Given Medications acetaminophen 325 mg oral tablet 650 mg, Tablet, By Mouth, Every 4 hours, PRN for Pain , Moderate, Routine, 05/24/22 12:06:00 EDT Start Date: 05/24/22 Stop Date: 05/24/22 Status: Discontinuedacetaminophen-hydrocodone 325 mg-10 mg oral tablet 1 tablet, [...] Refills, Maintenance, 04/11/22 12:19:00 EDT, XL Tablet, [facility] 3, 1 tablet By Mouth Daily, 172.2, cm, 04/11/22 8:24:00 EDT, Height, 94.3, kg, 04/09/22 13:42:00 EDT, Dry Weight Start Date: 04/11/22 Status: Orderedcarvedilol 6.25 mg oral tablet 6.25 mg, 1, tablet, By Mouth, 2 times a day, # 60 tablet, Refills 3, Tot. Refills 3, Maintenance, 05/06/22 9:13:00 EDT, Route to Pharmacy Electronically, [facility], Partial fill upon patient request if the prescription is for a s... Start Date: 05/06/22 Stop Date: 09/03/22 Status: Orderedcyclobenzaprine 10 mg oral tablet 10 mg, 1, tablet, By Mouth, 3 times a day, PRN, Spasm Start Date: 04/05/21 Status: Ordereddapagliflozin 10 mg oral tablet 1 tablet = 10 mg, By Mouth, Daily, # 90 tablet, 3 Refills, Maintenance, 04/23/22 12:03:00 EDT, Tablet, [facility], Partial fill upon patient request if the prescription is for a schedule II opioid drug., 172.2, cm, 04/23/22 11:34:... Start Date: 04/23/22 Stop Date: 04/18/23 Status: OrderedEliquis 5 mg oral tablet 1 tablet = 5 mg, By Mouth, 2 times a day Start Date: 11/26/21 Status: OrderedLabs: Lytes, BUN, Cr Labs: Lytes, BUN, Cr, See Instructions, # 1 each, Refills 0, Tot. Refills 0, Maintenance, Check blood work within 1-2 days Send Results to PCP: Mike Duong MD, 04/11/22 12:20:00 EDT, Supply Start Date: 04/11/22 Status: Orderedlosartan 50 mg oral tablet 100 mg, 2, tablet, By Mouth, Daily, for 30 days, # 60 tablet, Refills 3, Tot. Refills 3, Hard Stop 08/21/22 14:29:00 EDT, 04/23/22 14:29:00 EDT, Do Not Route, Partial fill upon patient request if the prescription is for a schedule II opioid drug. Start Date: 04/23/22 Stop Date: 08/21/22 Status: Orderedmelatonin 5 mg oral tablet 1 tablet = 5 mg, By Mouth, Daily, PRN for insomnia, 2 hours before bed, Maintenance, 04/05/21 15:43:00 EDT, Tablet Start Date: 04/05/21 Status: Orderedmetolazone 2.5 mg oral tablet 2.5 mg, 1, tablet, By Mouth, Daily, as directed by the heart failure clinic please call office for 2lbs weight gain in 1 day, 5 lbs in 1 week, # 30 tablet, Refills 0, Tot. Refills 0, Maintenance, 03/11/22 12:22:00 EDT, Route to Pharmacy Electronic... Start Date: 03/11/22 Status: OrderedNarcan 4 mg/0.1 mL nasal spray 0.1 mL = 4 mg, Naris, Left, Once, PRN as needed, repeat dose in 2-3 minutesalternasting nares, Maintenance, 04/05/21 15:56:00 EDT, ; Start Date: 04/05/21 Status: Orderednicotine 4 mg oral transmucosal gum 1 gum, By Mouth, Every 4 hours, PRN as needed, Maintenance, 11/26/21 11:20:00 EST, ; Start Date: 11/26/21 Status: Orderedspironolactone 25 mg oral tablet 25 mg, 1, tablet, By Mouth, Daily in AM Start Date: 04/05/21 Status: Orderedtorsemide 20 mg oral tablet 2 tablet = 40 mg, By Mouth, 2 times a day, # 120 tablet, 1 Refills, Maintenance, 04/18/22 13:47:00 EDT, Tablet, [facility], 172.2, cm, 04/11/22 8:24:00 EDT, Height, 94.3, kg, 04/09/22 13:42:00 EDT, Dry Weight Start Date: 04/18/22 Status: OrderedViagra 100 mg oral tablet 1/2 [...] class I(Confirmed) Active TYRONE on CPAP(Confirmed) Active Restrictive lung disease(Confirmed) Active Tobacco dependence(Confirmed) Active 1initial Oswestry Disability Scale: 52% ( severe disability ) on 01/20/2013; initial [place] Back Pain Scale: 36 on 01/20/2013 Vital Signs Most recent to oldest 1 2 3 [Reference Range]: Height 174 cm 174 cm (05/24/22 6:45 AM) (05/24/22 6:45 AM) Weight 99.1 kg 99.1 kg (05/24/22 6:45 AM) (05/24/22 6:45 AM) Oxygen Saturation [94-100 %] 94 % 96 % 98 % (05/24/22 1:00 PM) (05/24/22 12:30 PM) (05/24/22 12 :00 PM) Pulse Rate [55-90 bpm] 95 bpm *H* (05/24/22 6:45 AM) Body Mass Index [18.5-24.99] 32.73 *>HHI* (05/24/22 6:45 AM) Blood Pressure [90-138/55-84 115/77 mm Hg 121/89 mm Hg 116 /91 mm Hg mm Hg] (05/24/22 1:00 PM) (05/24/22 12:00 PM) (05/24/22 11 :30 AM) Respiratory Rate [16-30 22 br/min 22 br/min 24 br/mi n br/min] (05/24/22 1:23 PM) (05/24/22 1:00 PM) (05/24/22 12: 30 PM) Temperature [96.8-100.4 96.5 DegF DegF] *L* (05/24/22 6:45 AM) Liters per Minute 2 L/min 2 L/min 2 L/min (05/24/22 12:00 PM) (05/24/22 11:30 AM) (05/24/22 1 1:15 AM) Mode of Delivery (Oxygen) Room air Room air Nasal cannula (05/24/22 1:00 PM) (05/24/22 12:30 PM) (05/24/22 12 :00 PM) Blood pressure sites Arm, right Arm, right Arm, right (05/24/22 1:00 PM) (05/24/22 12:00 PM) (05/24/22 11 :30 AM) Temperature Route Temporal (05/24/22 6:45 AM) Dry Weight 99.1 kg (05/24/22 6:45 AM) Weight Obtained Via Standing scale Standing scale (05/24/22 6:45 AM) (05/24/22 6:45 AM) Dry Weight Obtained Via Standing scale (05/24/22 6:45 AM) Social History Social History Type Response Smoking Status Current every day smoker entered on: 11/07/15 Sex
--- OUTSIDE RECORDS SUMMARY | 2022-10-09 22:50 | XMS_ITS | Continuity of Care Document ---
:1970 Author Organization [facility] Address [address] [place] [phone]- Care Team Providers Name Role Phone Mike Duong MD Primary Care Physician Encounter [facility] [place] Date(s): 03/14/22 - 05/08/22 [facility] [address] [place] [phone]- Attending Physician: Ana Cristina Barry MD Admitting [...] Refills, Maintenance, 04/11/22 12:19:00 EDT, XL Tablet, [facility], 1 tablet By Mouth Daily, 172.2, cm, 04/11/22 8:24:00 EDT, Height, 94.3, kg, 04/09/22 13:42:00 EDT, Dry Weight Start Date: 04/11/22 Status: Orderedcarvedilol 6.25 mg oral tablet 6.25 mg, 1, tablet, By Mouth, 2 times a day, # 60 tablet, Refills 3, Tot. Refills 3, Maintenance, 05/06/22 9:13:00 EDT, Route to Pharmacy Electronically, [facility], Partial fill upon patient request if the prescription is for a s... Start Date: 05/06/22 Stop Date: 09/03/22 Status: Orderedcyclobenzaprine 10 mg oral tablet 10 mg, 1, tablet, By Mouth, 3 times a day Start Date: 04/05/21 Status: Ordereddapagliflozin 10 mg oral tablet 1 tablet = 10 mg, By Mouth, Daily, # 90 tablet, 3 Refills, Maintenance, 04/23/22 12:03:00 EDT, Tablet, [facility], Partial fill upon patient request if [...] 1 Refills, Maintenance, 04/18/22 13:47:00 EDT, Tablet, [facility], 172.2, cm, 04/11/22 8:24:00 EDT, Height, [...]
--- OUTSIDE RECORDS SUMMARY | 2022-10-09 22:50 | XMS_ITS | Continuity of Care Document ---
:1970 Author Organization [facility] Address [address] [place] [id number]- Care Team Providers Name Role Phone Mike Duong MD Primary Care Physician [place] [facility] [place] 03/01/22 - 03/31/22 [facility] [address] [place] [phone]- Allergies, Adverse Reactions, Alerts No Known Allergies Immunizations Given and Recorded Vaccine Date Status [...] 11:16:00 EST, ; Start Date: 11/26/21 Status: Orderedcyclobenzaprine 10 mg oral tablet 10 mg, 1, tablet, By Mouth, 3 times a day Start Date: 04/05/21 Status: OrderedEliquis 5 mg oral tablet 1 tablet = 5 mg, By Mouth, 2 times a day Start Date: 11/26/21 Status: Orderedlosartan 50 mg oral tablet 1 tablet = 50 mg, By Mouth, Daily in AM Start Date: 04/05/21 Status: Orderedmelatonin 5 mg oral tablet 1 [...] 04/05/21 Status: Orderedtorsemide 20 mg oral tablet See Instructions, 4 tablets (80mg) BID and 2 tablets (40mg) BID , # 40 tablet, 3 Refills, Maintenance, 03/11/22 12:19:00 EDT, Tablet, [facility], 173, cm, 03/11/22 9:06:00 EDT, Height, 95.1, kg, 01/05/22 2:39:00... Start Date: 03/11/22 Status: OrderedViagra 100 mg oral tablet 1/2 [...] ( severe disability ) on 01/20/2013; initial [place] Back Pain Scale: 36 on 01/20/2013 Social History Social History Type Response Smoking Status Current every day smoker entered on: 11/07/15 Sex
--- OUTSIDE RECORDS SUMMARY | 2022-10-09 22:50 | XMS_ITS | Continuity of Care Document ---
:1970 Author Organization [facility] Address [address] [place] [phone]- Care Team Providers Name Role Phone Mike Duong MD Primary Care Physician En[place] [facility] [place](s): 03/15/22 - 04/18/22 [facility] [address] [place] [phone]- Attending Physician: Sean Tiwari NP Admitting Physician: Sean Tiwari NP Allergies, Adverse Reactions, Alerts No Known Allergies [...] Refills, Maintenance, 04/11/22 12:19:00 EDT, XL Tablet, [facility], 1 tablet By Mouth Daily, 172.2, cm, 04/11/22 8:24:00 EDT, Height, 94.3, kg, 04/09/22 13:42:00 EDT, Dry Weight Start Date: 04/11/22 Status: Orderedcarvedilol 3.125 mg oral tablet 3.125 mg, 1, tablet, By Mouth, 2 times a day, Maintenance, 11/26/21 11:16:00 EST, ; Start Date: 11/26/21 Status: Orderedcyclobenzaprine 10 mg oral tablet 10 mg, 1, tablet, By Mouth, 3 times a day Start Date: 04/05/21 Status: Ordereddextromethorphan-guaifenesin 5 mg-100 mg/5 mL oral liquid 10 mL, By Mouth, Every 4 hours, PRN Cough, # 180 mL, 0 Refills, Acute 04/27/22 16:00:00 EDT, 04/11/22 12:27:00 EDT, Liquid, [facility], 10 mL By Mouth Every 4 hours,PRN:Cough, 172.2, cm, 04/11/22 8:24:00 EDT, Height, 94.3, kg, 04/09/22 1... Start Date: 04/11/22 Stop Date: 04/27/22 Status: OrderedEliquis 5 mg oral tablet 1 [...] 04/11/22 Status: Orderedlosartan 50 mg oral tablet 1 [...] 1 Refills, Maintenance, 04/18/22 13:47:00 EDT, Tablet, [facility], 172.2, cm, 04/11/22 8:24:00 EDT, Height, [...] ( severe disability ) on 01/20/2013; initial [place] Back Pain Scale: 36 on 01/20/2013 Social History Social History Type Response Smoking Status Current every day smoker entered on: 11/07/15 Sex
--- OUTSIDE RECORDS SUMMARY | 2022-10-09 22:50 | XMS_ITS | Continuity of Care Document ---
:1970 Author Organization [facility] Address [address] [place] [phone]- Care Team Providers Name Role Phone Mike Duong MD Primary Care Physician [place] [facility] [place] 07[place]/[address] [address]- Discharge Disposition: A-D/C Walkout Attending Physician: Not on Staff, Attending MD Admitting Physician: Not on Staff, Admitting MD Referring Physician: Not on Staff, Referring [...] Refills, Maintenance, 04/11/22 12:19:00 EDT, XL Tablet, [facility], 1 tablet By Mouth Daily, 172.2, cm, 04/11/22 8:24:00 EDT, Height, 94.3, kg, 04/09/22 13:42:00 EDT, Dry Weight Start Date: 04/11/22 Status: Ordereddapagliflozin 10 mg oral tablet 1 tablet = 10 mg, By Mouth, Daily, # 90 tablet, 3 Refills, Maintenance, 04/23/22 12:03:00 EDT, Tablet, [facility], Partial fill upon patient request [...] 1 Refills, Maintenance, 06/14/22 15:42:00 EDT, Tablet, [facility], 173, cm, 06/14/22 14:08:00 EDT, [...] [place] Back Pain Scale: 36 on 01/20/2013 Vital Signs Most recent to oldest [Reference Range]: 1 2 Height 173 cm (07/17/22 4:20 PM) Oxygen Saturation [94-100 %] 100 % 100 % (07/17/22 4:20 PM) (07/17/22 4:06 PM) Pulse Rate [55-90 bpm] 104 bpm 111 bpm *H* *H* (07/17/22 4:20 PM) (07/17/22 4:06 PM) Blood Pressure [90-138/55-84 mm Hg] 110/90 mm Hg (07/17/22 4:20 PM) Respiratory Rate [16-30 br/min] 20 br/min (07/17/22 4:20 PM) Temperature [96.8-100.4 DegF] 97.3 DegF (07/17/22 4:20 PM) Mode of Delivery (Oxygen) Room air (07/17/22 4:20 PM) Blood pressure sites Arm, left (07/17/22 4:20 PM) Temperature Route Oral (07/17/22 4:20 PM) Social History Social History Type Response Smoking Status 10 or more cigarettes (1/2 p ack or more)/day in last 30 days entered on: 06/06/22 Sex
--- OUTSIDE RECORDS SUMMARY | 2022-10-09 22:50 | XMS_ITS | Continuity of Care Document ---
:1970 Author Organization [facility] Address [address] [place] [phone]- Care Team Providers Name Role Phone Rhoda VASQUEZ, Mike Primary Care Physician [place] [facility] [place] - 06/14/[address] [id number] Encounter Diagnosis Acute on chronic systolic heart failure (Discharge Diagnosis) - 06/07/22 Volume overload (Discharge Diagnosis) - 06/10/22 TYRONE on CPAP (Discharge Diagnosis) - 06/07/22 ICD (implantable cardioverter-defibrillator) in place (Discharge Diagnosis) - 06/07/22 Right heart failure (Discharge Diagnosis) - 06/10/22 Paroxysmal atrial fibrillation (Discharge Diagnosis) - 06/07/22 Discharge Disposition: A-D/C Home Attending Physician: Paddy Leal DO Admitting Physician: Sincere Londono MD Referring Physician: Not on Staff, Referring [...] Refills, Maintenance, 04/11/22 12:19:00 EDT, XL Tablet, [facility] 3, 1 tablet By Mouth Daily, 172.2, cm, 04/11/22 8:24:00 EDT, Height, 94.3, kg, 04/09/22 13:42:00 EDT, Dry Weight Start Date: 04/11/22 Status: Ordereddapagliflozin 10 mg oral tablet 1 tablet = 10 mg, By Mouth, Daily, # 90 tablet, 3 Refills, Maintenance, 04/23/22 12:03:00 EDT, Tablet, [facility], Partial fill upon patient [...] 11:20:00 EST, ; Start Date: 11/26/21 Status: OrderedoxyCODONE 5 mg oral tablet 5 mg, Tablet, By Mouth, Every 6 hours, PRN for Pain , Moderate, Routine, 06/08/22 14:15:00 EDT Start Date: 06/08/22 Stop Date: 06/15/22 Status: DiscontinuedProAir HFA 90 mcg/inh inhalation aerosol 2 puffs, [...] 1 Refills, Maintenance, 06/14/22 15:42:00 EDT, Tablet, [facility], 173, cm, 06/14/22 14:08:00 [...] ( severe disability ) on 01/20/2013; initial [place] Back Pain Scale: 36 on 01/20/2013 Diagnosis Diagnosis Type Effective Dates Health Clinical Infor mant Status Service Acute on chronic Discharge 06/07/22 systolic heart Diagnosis failure Paroxysmal atrial Discharge 06/07/22 fibrillation Diagnosis ICD (implantable Discharge 06/07/22 cardioverter-defibr Diagnosis illator) in place TYRONE on CPAP Discharge 06/07/22 Diagnosis Right heart failure Discharge 06/10/22 Diagnosis Volume overload Discharge 06/10/22 Diagnosis Results Orders for Microbiology Reports Name Date Wound Superficial Culture W/ Gram Smear (SUPERFICIAL W ND CULT) 06/06/22 Wound Superficial Culture W/ Gram Smear (Culture Wound Superficial w/ Gram 06/06/22 Smear) Microbiology Reports TEST:Superficial Wound Culture STATUS:Auth (Verified) BODY SITE: SOURCE:SWAB1 COLLECTED DATE/TIME:06/06/22 4:31 PMSuperficial Wound Culture SPECIMEN DESCRIPTION : SWAB CHEEK LT SPECIAL REQUESTS : NONE GRAM STAIN : 1+ RBC'S 1+ POLYMORPHONUCLEAR LEUKOCYTES 1+ GRAM POSITIVE COCCI CULTURE : No significant microorganisms isolated. REPORT STATUS : FINAL 06/09/2022TEST:Superficial Wound Culture STATUS:Auth (Verified) BODY SITE: SOURCE:SWAB1 COLLECTED DATE/TIME:06/06/22 4:31 PMSuperficial Wound Culture SPECIMEN DESCRIPTION : SWAB SPECIAL REQUESTS : NONE GRAM STAIN : 1+ POLYMORPHONUCLEAR LEUKOCYTES 1+ RBC'S 1+ GRAM POSITIVE COCCI CULTURE : No significant microorganisms isolated. REPORT STATUS : FINAL 2Radiology Reports Exam Date Time Procedure Performing Provider Status 06/08/22 3:31 PM Chest Portable Sorin Baez; Auth (Verified) Notes:(Chest Portable) Reason For Exam: Shortness of BreathRESULT: Chest Portable Chest Portable Reason: Shortness of Breath; Clinical Question(s): Pulmonary Edema COMPARISON: [facility], most recent dated 06/06/2022 FINDINGS: LINES AND TUBES: Single lead left subclavian pacer/AICD wire is intact. LUNGS AND PLEURA: No focal opacity in the right lung. Faint heterogenous opacity in the left costophrenic angle probably represents a combination of tracepleural effusion/thickening with atelectasis/residual parenchymal changes from prior pleural and parenchymal disease. No right pleural effusion. No pneumothorax. HEART, MEDIASTINUM AND BREANNA: Stable mild enlarged cardiac silhouette. Normal upper mediastinal and hilar contour. BONES AND SOFT TISSUES: No acute abnormality. IMPRESSION: Heterogeneous opacity near the left costophrenic angle likely represents a combination of trace leftpleural effusion versus thickening with sequela of prior pleural-parenchymal disease in this region. No new focal parenchymal opacity. No evidence of pulmonary edema. WSN: [id number] Ordering Physician: Vu Molina Dictated By: Yarelis De Oliveira MD Dictated Date/Time: 06/08/22 4:13 pm Reviewed By: Yarelis De Oliveira MD Signed By: Yarelis De Oliveira MD Signed Date/Time: 06/08/22 4:13 pm Transcribed By: ROSA M Transcribed Date/Time: 06/08/22 4:10 pm Exam Date Time Procedure Performing Provider Status 06/06/22 6:23 AM Chest 2 Views Frontal and Lat Patterson , Orin; Auth (Verified) Notes:(Chest 2 Views Frontal and Lat) Reason For Exam: Chest Pain;Other:RESULT: Chest 2 Views Frontal and Lat Chest 2 Views Frontal and Lat Hx of Present Illness: pt presents today for increased swelling and pain to BLE, HX HF, takes Lasix 60mg x2 day, pt reports scrotum is also swollen; Reason: Other:; Chest Pain. COMPARISON: Multiple prior chest x-rays, the most recent of which is dated 03/06/2022. FINDINGS: LINES AND TUBES: There is a pacer/AICD with power pack overlying the left upper chest. Cardio Mems device is noted. LUNGS AND PLEURA: Clear lungs. Normal pulmonary vascularity. No pleural effusion. No pneumothorax. HEART, MEDIASTINUM AND BREANNA: Heart is normal in size. Normal upper mediastinal and hilar contour. BONES AND SOFT TISSUES: No acute abnormality. IMPRESSION: No acute abnormality. WSN: [id number] Ordering Physician: Javier Medellin Dictated By: Desiree Dawn MD Dictated Date/Time: 06/06/22 8:46 am Reviewed By: Desiree Dawn MD Signed By: Desiree Dawn MD Signed Date/Time: 06/06/22 8:46 am Transcribed By: ROSA M Transcribed Date/Time: 06/06/22 8:44 am Vital Signs Most recent to oldest 1 2 3 [Reference Range]: Height 173 cm 173 cm 173 cm (06/14/22 2:08 PM) (06/14/22 8:08 AM) (06/14/22 3:1 5 AM) Weight 85.2 kg 86.5 kg 89.5 kg (06/14/22 6:35 AM) (06/13/22 4:35 AM) (06/12/22 8:4 8 AM) Oxygen Saturation [94-100 %] 95 % 98 % 94 % (06/14/22 2:08 PM) (06/14/22 8:08 AM) (06/14/22 3:1 5 AM) Pulse Rate [55-90 bpm] 116 bpm 114 bpm 104 bpm *H* *H* *H* (06/14/22 2:08 PM) (06/14/22 8:08 AM) (06/14/22 3:1 5 AM) Body Mass Index [18.5-24.99] 33.35 *>HHI* (06/07/22 1:13 PM) Blood Pressure [90-138/55-84 mm 124/99 mm Hg 118/96 mm Hg 113/83 mm Hg Hg] (06/14/22 2:08 PM) (06/14/22 8:08 AM) (06/14/22 3:1 5 AM) Respiratory Rate [16-30 br/min] 20 br/min 16 br/min 20 br/min (06/14/22 2:08 PM) (06/14/22 9:16 AM) (06/14/22 8:0 8 AM) Temperature [96.8-100.4 DegF] 97.9 DegF 97.0 DegF 97 .5 DegF (06/14/22 2:08 PM) (06/14/22 8:08 AM) (06/14/22 3:1 5 AM) Liters per Minute 1 L/min 2 L/min 0 L/min (06/11/22 7:48 PM) (06/09/22 7:26 PM) (06/09/22 5:0 6 PM) Mode of Delivery (Oxygen) Room air Room air Room a ir (06/14/22 2:08 PM) (06/14/22 8:08 AM) (06/14/22 3:1 5 AM) Blood pressure sites Arm, left Arm, left Arm, left (06/14/22 2:08 PM) (06/14/22 8:08 AM) (06/14/22 3:1 5 AM) Temperature Route Temporal Temporal Oral (06/14/22 2:08 PM) (06/14/22 8:08 AM) (06/14/22 3:1 5 AM) Dry Weight 89 kg (06/07/22 1:13 PM) Weight Obtained Via Bed scale Bed scale Bed scale (06/14/22 6:35 AM) (06/12/22 3:27 AM) (06/11/22 6:0 4 AM) Social History Social History Type Response Smoking Status 10 or more cigarettes (1/2 p ack or more)/day in last 30 days entered on: 06/06/22 Sex
--- OUTSIDE RECORDS SUMMARY | 2022-10-09 22:50 | XMS_ITS | Continuity of Care Document ---
:1970 Author Organization [facility] Address [address] [place] [phone]- Care Team Providers Name Role Phone Rhoda VASQUEZ, Mike Primary Care Physician Encounter [facility] [place] Date(s): 04/09/22 - 04/11/[address] [address] Discharge Disposition: A-D/C Home Attending Physician: Amando Nichols MD Admitting Physician: Rosemarie Paige MD Referring Physician: Rosemarie Paige MD Allergies, Adverse Reactions, Alerts No Known Allergies [...] HOURS, 0 Refills Start Date: 04/05/21 Status: Orderedacetaminophen-HYDROcodone 325 mg-5 mg oral tablet 1 tablet, Tablet, By Mouth, Every 4 hours, PRN for Pain , Moderate, Routine, 04/10/22 20:51:00 EDT Start Date: 04/10/22 Stop Date: 04/11/22 Status: Discontinuedamiodarone 200 mg oral tablet 200 mg, 1, [...] Refills, Maintenance, 04/11/22 12:19:00 EDT, XL Tablet, [facility], 1 tablet By Mouth Daily, 172.2, cm, 04/11/22 8:24:00 EDT, Height, 94.3, kg, 04/09/22 13:42:00 EDT, Dry Weight Start Date: 04/11/22 Status: Orderedcarvedilol 3.125 mg oral tablet 3.125 mg, 1, tablet, By Mouth, 2 times a day, Maintenance, 11/26/21 11:16:00 EST, ; Start Date: 11/26/21 Status: Orderedcarvedilol 3.125 mg oral tablet 3.125 mg, Tablet, By Mouth, 04/10/22 21:00:00 EDT Start Date: 04/10/22 Stop Date: 04/10/22 Status: Completedcyclobenzaprine 10 mg oral tablet 10 mg, 1, tablet, By Mouth, 3 times a day Start Date: 04/05/21 Status: Ordereddextromethorphan-guaifenesin 5 mg-100 mg/5 mL oral liquid 10 mL, By Mouth, Every 4 hours, PRN Cough, # 180 mL, 0 Refills, Acute 04/27/22 16:00:00 EDT, 04/11/22 12:27:00 EDT, Liquid, [facility], 10 mL By Mouth [...] 2 times a day, # 120 tablet, 0 Refills, Maintenance, 04/11/22 12:17:00 EDT, Tablet, [facility], 172.2, cm, 04/11/22 8:24:00 EDT, Height, 94.3, kg, 04/09/22 13:42:00 EDT, Dry Weight Start Date: 04/11/22 Status: OrderedViagra 100 mg oral tablet 1/2 [...] oldest 1 2 3 [Reference Range]: Height 172.2 cm 172.2 cm 172.2 cm (04/11/22 8:24 AM) (04/11/22 2:53 AM) (04/10/22 8:0 7 PM) Weight 91.1 kg 93.8 kg 97.8 kg (04/11/22 6:19 AM) (04/10/22 6:11 AM) (04/09/22 1:4 2 PM) Oxygen Saturation [94-100 %] 94 % 98 % 97 % (04/11/22 8:24 AM) (04/11/22 2:53 AM) (04/10/22 8:0 7 PM) Pulse Rate [55-90 bpm] 88 bpm 85 bpm 92 bpm (04/11/22 8:24 AM) (04/11/22 2:53 AM) *H* (04/10/22 8:49 PM ) Body Mass Index [18.5-24.99] 32.98 *>HHI* (04/09/22 1:42 PM) Blood Pressure [90-138/55-84 108/76 mm Hg 105/74 mm Hg 100 /72 mm Hg mm Hg] (04/11/22 8:24 AM) (04/11/22 2:53 AM) (04/10/22 8:4 9 PM) Respiratory Rate [16-30 18 br/min 19 br/min 18 br/mi n br/min] (04/11/22 12:56 PM) (04/11/22 9:28 AM) (04/11/22 8: 28 AM) Temperature [96.8-100.4 DegF] 97.5 DegF 97.2 DegF 97 .9 DegF (04/11/22 8:24 AM) (04/11/22 2:53 AM) (04/10/22 8:0 7 PM) Liters per Minute 0 L/min (04/09/22 1:42 PM) Mode of Delivery (Oxygen) Room air Room air Room a ir (04/11/22 8:24 AM) (04/11/22 2:53 AM) (04/10/22 8:0 7 PM) Blood pressure sites Arm, right Arm, right Arm, right (04/11/22 8:24 AM) (04/11/22 2:53 AM) (04/10/22 8:0 7 PM) Temperature Route Oral Temporal Temporal (04/11/22 8:24 AM) (04/11/22 2:53 AM) (04/10/22 8:0 7 PM) Dry Weight 94.3 kg (04/09/22 1:42 PM) Weight Obtained Via Bed scale Bed scale (04/11/22 6:19 AM) (04/10/22 6:11 AM) Dry Weight Obtained Via Bed scale (04/09/22 1:42 PM) Social History Social History Type Response Smoking Status Current every day smoker entered on: 11/07/15 Sex
--- OUTSIDE RECORDS SUMMARY | 2022-10-09 22:50 | XMS_ITS | Continuity of Care Document ---
:1970 Author Organization [facility] Address [address] [place] [phone]- Care Team Providers Name Role Phone Mike Duong MD Primary Care Physician [place] [facility] [place]s): 05/15/22 - 07/04/22 [facility] [address] [place] [phone]- Encounter Diagnosis Acute HFrEF (heart failure with reduced ejection fraction) (Discharge Diagnosis) - 06/04/22 Cardiomyopathy with implantable cardioverter-defibrillator (Discharge Diagnosis) - 06/04/22 Atrial fibrillation (Discharge Diagnosis) - 06/04/22 TYRONE on CPAP (Discharge Diagnosis) - 06/04/22 Obese class I (Discharge Diagnosis) - 06/04/22 Tobacco dependence (Discharge Diagnosis) - 06/04/22 Attending Physician: Sean Tiwari NP Admitting Physician: Sean Tiwari NP Allergies, Adverse Reactions, Alerts Substance Reaction Severity [...] Refills, Maintenance, 04/11/22 12:19:00 EDT, XL Tablet, [facility] 3, 1 tablet By Mouth Daily, 172.2, cm, 04/11/22 8:24:00 EDT, Height, 94.3, kg, 04/09/22 13:42:00 EDT, Dry Weight Start Date: 04/11/22 Status: Ordereddapagliflozin 10 mg oral tablet 1 tablet = 10 mg, By Mouth, Daily, # 90 tablet, 3 Refills, Maintenance, 04/23/22 12:03:00 EDT, Tablet, [facility], Partial fill upon patient request if [...] 1 Refills, Maintenance, 06/14/22 15:42:00 EDT, Tablet, [facility], 173, cm, 06/14/22 14:08:00 [...] disability ) on 01/20/2013; initial [place] Back Pain Scale: 36 on 01/20/2013 Diagnosis Diagnosis Type Effective Dates Health Clinical Infor mant Status Service Acute HFrEF (heart Discharge 06/04/22 failure with reduced Diagnosis ejection fraction) Cardiomyopathy with Discharge 06/04/22 implantable Diagnosis cardioverter-defibri llator Atrial fibrillation Discharge 06/04/22 Diagnosis TYRONE on CPAP Discharge 06/04/22 Diagnosis Obese class I Discharge 06/04/22 Diagnosis Tobacco dependence Discharge 06/04/22 Diagnosis Social History Social History Type Response Smoking Status 10 or more cigarettes (1/2 p ack or more)/day in last 30 days entered on: 06/06/22 Sex
--- OUTSIDE RECORDS SUMMARY | 2022-10-09 22:50 | XMS_ITS | Continuity of Care Document ---
:1970 Author Organization [facility] Address [address] [place] [address]- Care Team Providers Name Role Phone Mike Duong MD Primary Care Physician Encounter [facility] [place] Date(s): 05/08/21 - 05/09/[address] [address]- Discharge Disposition: A-D/C Walkout Attending Physician: Not on Staff, Attending MD Admitting Physician: Not on Staff, Admitting MD Referring Physician: Not on Staff, Referring MD Allergies, Adverse Reactions, Alerts Substance Reaction Severity Status NKA Active Immunizations Given and Recorded Vaccine Date Status Refusal Reason pneumococcal 23-valent vaccine 01/14/17 Given influenza virus vaccine, inactivated 01/14/17 Given Medications acetaminophen-hydrocodone 325 mg-10 mg [...] Print Requisition Start Date: 03/05/16 Status: Orderedcarvedilol 25 mg oral tablet 25 mg, 1, tablet, By Mouth, 2 times a day, Refills 0, Maintenance, 01/14/17 14:52:38 EST Start Date: 01/14/17 Status: Orderedcyclobenzaprine 10 mg oral tablet 10 mg, 1, tablet, By Mouth, 3 times a day Start Date: 04/05/21 Status: Ordereddiclofenac 1% topical gel = 2 Gm, Topically, 4 times a day, PRN Pain , Mild, # 100 Gm, 0 Refills, Maintenance, 04/09/21 14:19:00 EDT, Gel, [facility], Partial fill upon patient request if the prescription is for aschedule II opioid drug. Start Date: 04/09/21 Status: Orderedfurosemide 20 mg oral tablet 1-2 tablet, By Mouth, Daily, TAKE 1 OR 2 TABLETS DAILY. TAKE TWO TABLETS if feeling short of breath,or swelling in legs. Start Date: 04/05/21 Status: Orderedhydrochlorothiazide 12.5 mg oral capsule 1 capsule = 12.5 mg, By Mouth, Daily, 0 Refills, Maintenance, 01/14/17 14:52:18 EST, Capsule Start Date: 01/14/17 Status: Orderedlosartan 50 mg oral tablet 1 tablet = 50 mg, By Mouth, Daily in AM Start Date: 04/05/21 Status: Orderedmelatonin 5 mg oral tablet 1 tablet = 5 mg, By Mouth, Daily, PRN for insomnia, 2 hours before bed, Maintenance, 04/05/21 15:43:00 EDT, Tablet Start Date: 04/05/21 Status: Orderedmirtazapine 7.5 mg oral tablet 1 tablet = 7.5 mg, By Mouth, Daily at bedtime Start Date: 04/05/21 Status: OrderedNarcan 4 mg/0.1 mL nasal spray 0.1 mL = 4 mg, Naris, Left, Once, PRN as needed, repeat dose in 2-3 minutesalternasting nares, Maintenance, 04/05/21 15:56:00 EDT, ; Start Date: 04/05/21 Status: OrderedProAir HFA 90 mcg/inh inhalation aerosol with adapter 2, puffs, Inhalation, PRN, every 4-6 hours, Refills 0, Maintenance, 01/14/17 14:56:12 EST, Aerosol Start Date: 01/14/17 Status: Orderedsertraline 25 mg oral tablet 1 tablet = 25 mg, By Mouth, Daily Start Date: 04/05/21 Status: OrderedSpiriva HandiHaler 18 mcg Inhalation Capsule 1 capsule = 18 mcg, Inhalation, Daily at bedtime, 0 Refills, Maintenance, 11/07/15 16:25:12 EST, Capsule Start Date: 11/07/15 Status: Orderedspironolactone 25 mg oral tablet 1/2 tablet, By Mouth, Daily in AM Start [...] Failed back syndrome(Confirmed) Active HTN (hypertension)(Confirmed) Active Limitation due to Active disability(Confirmed)1 Myalgia(Confirmed) Active 1initial Oswestry Disability Scale: 52% ( severe disability ) on 01/20/2013; initial [place] Back Pain Scale: 36 on 01/20/2013 Results Radiology Reports Exam Date Time Procedure Performing Provider Status 05/09/21 12:48 AM Chest 2 Views Frontal and Lat Armida Virk ; Auth (Verified) Notes:(Chest 2 Views Frontal and Lat) Reason For Exam: Chest Pain;Other:RESULT: Chest 2 Views Frontal and Lat Chest 2 Views Frontal and Lat Hx of Present Illness: sob since yest; Reason: Other:; Chest Pain; COMPARISON: 04/05/2021 FINDINGS: LINES AND TUBES: Single lead left subclavian pacer wire is intact. LUNGS AND PLEURA: Clear lungs. Normal pulmonary vascularity. No pleural effusion. No pneumothorax. HEART, MEDIASTINUM AND BREANNA: Unchanged. BONES AND SOFT TISSUES: No acute abnormality. IMPRESSION: No acute abnormality. WSN: [id number] Ordering Physician: Paddy Elam Dictated By: Adan Rock MD Dictated Date/Time: 05/09/21 7:38 am Reviewed By: Adan Rock MD Signed By: Adan Rock MD Signed Date/Time: 05/09/21 7:38 am Transcribed By: ROSA M Transcribed Date/Time: 05/09/21 7:37 am Vital Signs Most recent to oldest 1 2 3 [Reference Range]: Oxygen Saturation [94-100 %] 100 % 100 % 100 % (05/09/21 1:17 AM) (05/09/21 12:17 AM) (05/08/21 10:34 PM) Pulse Rate [55-90 bpm] 110 bpm 106 bpm 122 bpm *H* *H* *H* (05/09/21 1:17 AM) (05/09/21 12:17 AM) (05/08/21 10:34 PM) Blood Pressure [90-138/55-84 mm 131/88 mm Hg 117/84 mm Hg Hg] (05/09/21 1:17 AM) (05/09/21 12:17 AM) Respiratory Rate [16-30 br/min] 18 br/min 20 br/min 22 br/min (05/09/21 1:17 AM) (05/09/21 12:17 AM) (05/08/21 10:34 PM) Temperature [96.8-100.4 DegF] 97.6 DegF 97.8 DegF (05/09/21 1:17 AM) (05/09/21 12:17 AM) Mode of Delivery (Oxygen) Room air Room air Room a ir (05/09/21 1:17 AM) (05/09/21 12:17 AM) (05/08/21 10:34 PM) Blood pressure sites Arm, left (05/09/21 12:17 AM) Temperature Route Oral Oral (05/09/21 1:17 AM) (05/09/21 12:17 AM) Social History Social History Type Response Smoking Status Current every day smoker entered on: 11/07/15 Sex
--- OUTSIDE RECORDS SUMMARY | 2022-10-09 22:50 | XMS_ITS | Continuity of Care Document ---
:1970 Author Organization [facility] Address [address] [place] [address]- Care Team Providers Name Role Phone Mike Duong MD Primary Care Physician [place] [facility] [place] 04/18/22 - 05/18/22 [facility] [address] [place] [address]- [place] Allergies, Adverse Reactions, Alerts Substance Reaction Severity [...] Refills, Maintenance, 04/11/22 12:19:00 EDT, XL Tablet, [facility], 1 tablet By Mouth Daily, 172.2, cm, 04/11/22 8:24:00 EDT, Height, 94.3, kg, 04/09/22 13:42:00 EDT, Dry Weight Start Date: 04/11/22 Status: Orderedcarvedilol 6.25 mg oral tablet 6.25 mg, 1, tablet, By Mouth, 2 times a day, # 60 tablet, Refills 3, Tot. Refills 3, Maintenance, 05/06/22 9:13:00 EDT, Route to Pharmacy Electronically, [facility], Partial fill upon patient request if the prescription is for a s... Start Date: 05/06/22 Stop Date: 09/03/22 Status: Orderedcyclobenzaprine 10 mg oral tablet 10 mg, 1, tablet, By Mouth, 3 times a day Start Date: 04/05/21 Status: Ordereddapagliflozin 10 mg oral tablet 1 tablet = 10 mg, By Mouth, Daily, # 90 tablet, 3 Refills, Maintenance, 04/23/22 12:03:00 EDT, Tablet, [facility], Partial fill upon patient request if [...] 1 Refills, Maintenance, 04/18/22 13:47:00 EDT, Tablet, [facility], 172.2, cm, 04/11/22 8:24:00 [...] ( severe disability ) on 01/20/2013; initial [place] Back Pain Scale: 36 on 01/20/2013 Social History Social History Type Response Smoking Status Current every day smoker entered on: 11/07/15 Sex
--- OUTSIDE RECORDS SUMMARY | 2022-10-09 22:50 | XMS_ITS | Continuity of Care Document ---
:1970 Author Organization [facility] Address [address] [place] [phone]- Care Team Providers Name Role Phone Mike Duong MD Primary Care Physician [place] [facility] [place](s[place] 03/06/22 - 03/06/[address] [address]- Encounter Diagnosis Heart failure with reduced ejection fraction (Final) - 03/06/22 Heart failure with reduced ejection fraction (Final) - 03/06/22 Discharge Disposition: A-D/C Home Attending Physician: Brisa Mejia DO Admitting Physician: Brisa Mejia DO Referring Physician: Not on Staff, Referring MD Allergies, Adverse Reactions, Alerts No Known [...] mg, By Mouth, 2 times a day, STOP FUROSEMIDE, # 120 tablet, 0 Refills, Maintenance, 01/13/22 9:10:00 EST, Tablet, [facility], Partial fill upon patient request if the prescription is for a schedule II opioid drug., 173, cm,... Start Date: 01/13/22 Stop Date: 02/12/22 Status: OrderedViagra 100 mg oral tablet 1/2 [...] [place] Back Pain Scale: 36 on 01/20/2013 Results Radiology Reports Exam Date Time Procedure Performing Provider Status 03/06/22 10:04 AM Chest 2 Views Frontal and Lat Jerald , Lory; Au th (Verified) Notes:(Chest 2 Views Frontal and Lat) Reason For Exam: Chest Pain;Other:RESULT: Chest 2 Views Frontal and Lat Chest 2 Views Frontal and Lat HPI: patient with C O shortness of breath, chest pain and cough, patient also reporting lower leg edema concerned for CHF exacerbation. INDICATION: Chest pain. COMPARISON: Multiple chest radiographs, most recent 01/08/2022. CT chest 12/06/2021. FINDINGS: LINES AND TUBES: Single lead left subclavian internal defibrillator wire is intact. LUNGS AND PLEURA: Right chest: The lung is clear. There is no effusion. Left chest: The upper and mid lung are clear. There is blunting of the costophrenic angle in a location where there has been pleural and parenchymal disease on multiple prior examinations. The current findings less pronounced than on the prior exams and may simply represents chronic change ordering most a minimal effusion. . HEART, MEDIASTINUM AND BREANNA: Mild prominence of the cardiac silhouette, unchanged. Normal mediastinal and hilar contour. BONES AND SOFT TISSUES: No acute abnormality. IMPRESSION: 1. No right chest abnormality. 2. Left chest only abnormality seen is blunting of costophrenic angle which could be due to chronic change or a most minimal effusion. I have personally reviewed the images and I agree with this report. WSN: [id number] Ordering Physician: Carlos, Silvia Gonen Dictated By: Josias Hernandez MD Dictated Date/Time: 03/06/22 10:35 a Reviewed By: Damien Marcos MD Signed By: Damien Marcos MD Signed Date/Time: 03/06/22 10:40 am Transcribed By: ROSA M Transcribed Date/Time: 03/06/22 10:14 am Vital Signs Most recent to oldest [Reference 1 2 3 Range]: Oxygen Saturation [94-100 %] 100 % 98 % 100 % (03/06/22 1:00 PM) (03/06/22 11:05 AM) (03/06/22 9:04 AM) Pulse Rate [55-90 bpm] 98 bpm 105 bpm 101 bpm *H* *H* *H* (03/06/22 1:00 PM) (03/06/22 11:05 AM) (03/06/22 9:04 AM) Blood Pressure [90-138/55-84 mm 126/80 mm Hg 115/83 mm Hg 128/85 mm Hg Hg] (03/06/22 1:00 PM) (03/06/22 11:05 AM) (03/06/22 9:04 AM) Respiratory Rate [16-30 br/min] 20 br/min 20 br/min 25 br/min (03/06/22 1:00 PM) (03/06/22 11:05 AM) (03/06/22 9:04 AM) Temperature [96.8-100.4 DegF] 97.7 DegF 97.8 DegF (03/06/22 9:04 AM) (03/06/22 8:40 AM) Mode of Delivery (Oxygen) Room air Room air Room a ir (03/06/22 1:00 PM) (03/06/22 11:05 AM) (03/06/22 9:04 AM) Blood pressure sites Arm, left Arm, right (03/06/22 9:04 AM) (03/06/22 8:40 AM) Temperature Route Oral Oral (03/06/22 9:04 AM) (03/06/22 8:40 AM) Social History Social History Type Response Smoking Status Current every day smoker entered on: 11/07/15 Sex
--- OUTSIDE RECORDS SUMMARY | 2022-10-09 22:50 | XMS_ITS | Continuity of Care Document ---
:1970 Author Organization [facility] [address] [place] [address]- Care Team Providers Name Role Phone Rhoda VASQUEZ, Mike Primary Care Physician [place] [facility] [place] 06/07/22 - 07/13/[address] [place], [place] [address] Attending Physician: Davida Romero NP Referring Physician: Not on Staff, Referring MD [...] Refills, Maintenance, 04/11/22 12:19:00 EDT, XL Tablet, [facility], 1 tablet By Mouth Daily, 172.2, cm, 04/11/22 8:24:00 EDT, Height, 94.3, kg, 04/09/22 13:42:00 EDT, Dry Weight Start Date: 04/11/22 Status: Ordereddapagliflozin 10 mg oral tablet 1 tablet = 10 mg, By Mouth, Daily, # 90 tablet, 3 Refills, Maintenance, 04/23/22 12:03:00 EDT, Tablet, [facility], Partial fill upon patient [...] 1 Refills, Maintenance, 06/14/22 15:42:00 EDT, Tablet, [facility], 173, cm, 06/14/22 14:08:00 [...] ( severe disability ) on 01/20/2013; initial [place] Back Pain Scale: 36 on 01/20/2013 Social History Social History Type Response Smoking Status 10 or more cigarettes (1/2 p ack or more)/day in last 30 days entered on: 06/06/22 Sex
--- OUTSIDE RECORDS SUMMARY | 2022-10-09 22:50 | XMS_ITS | Continuity of Care Document ---
:1970 Author Organization [facility] Address [address] [place] [address]- Care Team Providers Name Role Phone Mike Duong MD Primary Care Physician [place] [facility] [place] 03/15/22 - 05/02/22 [facility] [address] [place] [address]- Attending Physician: Ana Cristina Barry MD Admitting [...] 12:19:00 EDT, XL Tablet, [facility], 1 tablet By Mouth [...] 3 Refills, Maintenance, 04/23/22 12:03:00 EDT, Tablet, [facility], Partial fill upon patient request [...] within 1-2 days Send Results to PCP: Mkie Duong MD, 04/11/22 12:20:00 EDT, Supply Start [...] Start Date: 04/23/22 Stop Date: 08/21/22 Status: Orderedlosartan 50 mg oral tablet 100 mg, 2, tablet, By Mouth, Daily, # 60 tablet, Refills 3, Tot. Refills 3, Maintenance, 08/21/22 14:29:00 EDT, Route to Pharmacy Electronically, [facility], Replaces rx for Entresto, we have made note of his allergy. Thank you, 1... Start Date: 08/21/22 Stop Date: 12/19/22 Status: Orderedmelatonin 5 mg oral tablet 1 [...] 1 Refills, Maintenance, 04/18/22 13:47:00 EDT, Tablet, [facility], 172.2, cm, 04/11/22 8:24:00 EDT, [...]
--- OUTSIDE RECORDS SUMMARY | 2022-10-09 22:51 | XMS_ITS | Continuity of Care Document ---
:1970 Author Organization [facility] Address [address] [place] [address]- Care Team Providers Name Role Phone Mike Duong MD Primary Care Physician Encounter [facility] [place] Date(s): 03/14/22 - 05/01/22 [facility] [address] [place] [address]- Attending Physician: Dillon Mejia MD Admitting Physician: Dillon Mejia MD Referring Physician: Mike Duong MD Allergies, Adverse Reactions, Alerts Substance Reaction [...] Refills, Maintenance, 04/11/22 12:19:00 EDT, XL Tablet, [facility], 1 tablet By Mouth Daily, [...] 3 Refills, Maintenance, 04/23/22 12:03:00 EDT, Tablet, [facility], Partial fill upon patient request [...] 08/21/22 14:29:00 EDT, Route to Pharmacy Electronically, [facility], Replaces rx for Entresto, we have [...] 1 Refills, Maintenance, 04/18/22 13:47:00 EDT, Tablet, [facility], 172.2, cm, 04/11/22 8:24:00 EDT, [...] ( severe disability ) on 01/20/2013; initial [place] Back Pain Scale: 36 on 01/20/2013 Social History Social History Type Response Smoking Status Current every day smoker entered on: 11/07/15 Sex
--- OUTSIDE RECORDS SUMMARY | 2022-10-09 22:51 | XMS_ITS | Continuity of Care Document ---
:1970 Author Organization [facility] Address [address] [place] [phone]- Care Team Providers Name Role Phone Mike Duong MD Primary Care Physician [place] [facility] [place] 06[place]23/22 [facility] [address] [place] [address]- Attending Physician: Sean Tiwari NP Admitting Physician: Sean Tiwari NP Referring Physician: Mike Duong MD Allergies, Adverse [...] Refills, Maintenance, 04/11/22 12:19:00 EDT, XL Tablet, [facility], 1 tablet By Mouth Daily, 172.2, cm, 04/11/22 8:24:00 EDT, Height, 94.3, kg, 04/09/22 13:42:00 EDT, Dry Weight Start Date: 04/11/22 Status: Ordereddapagliflozin 10 mg oral tablet 1 tablet = 10 mg, By Mouth, Daily, # 90 tablet, 3 Refills, Maintenance, 04/23/22 12:03:00 EDT, Tablet, [facility], Partial fill upon patient [...] 1 Refills, Maintenance, 06/14/22 15:42:00 EDT, Tablet, [facility], 173, cm, 06/14/22 [...]
--- OUTSIDE RECORDS SUMMARY | 2022-10-09 22:51 | XMS_ITS | Continuity of Care Document ---
:1970 Author Organization [facility] Address [address] [place] [address]- Care Team Providers Name Role Phone Mike Duong MD Primary Care Physician En[place] [facility] [place] [id number] Date(s): 06/12/22 - 08/07/22 [facility] [address] [place] [address]- Attending Physician: Ana Cristina Barry MD Admitting [...] Refills, Maintenance, 04/11/22 12:19:00 EDT, XL Tablet, [facility], 1 tablet By Mouth Daily, 172.2, cm, 04/11/22 8:24:00 EDT, Height, 94.3, kg, 04/09/22 13:42:00 EDT, Dry Weight Start Date: 04/11/22 Status: Ordereddapagliflozin 10 mg oral tablet 1 tablet = 10 mg, By Mouth, Daily, # 90 tablet, 3 Refills, Maintenance, 04/23/22 12:03:00 EDT, Tablet, [facility], Partial fill upon [...] 1 Refills, Maintenance, 06/14/22 15:42:00 EDT, Tablet, [facility], 173, cm, 06/14/22 14:08:00 [...] [place] Back Pain Scale: 36 on 01/20/2013 Social History Social History Type Response Smoking Status 10 or more cigarettes (1/2 p ack or more)/day in last 30 days entered on: 06/06/22 Sex Care Team PersonnelName: Mike Duong MD Address: [address] [place] [address]
--- OUTSIDE RECORDS SUMMARY | 2022-10-09 22:51 | XMS_ITS | Continuity of Care Document ---
:1970 Author Organization [facility] Address [address] [place] [phone]- Care Team Providers Name Role Phone Rhoda VASQUEZ, Mike Primary Care Physician Encounter [facility] [place] Date(s): 08/17/22 - 08/18/[address] [address] Discharge Disposition: A-D/C AMA Attending Physician: Amando Nichols MD Admitting Physician: Ismael VASQUEZ, Madelin Referring Physician: Not on Staff, Referring MD [...] tablet 1 tablet, Tablet, By Mouth, Every 6 hours, PRN for Pain , Severe, Routine, 08/17/22 10:39:00 EDT Start Date: 08/17/22 Stop Date: 08/18/22 Status: DiscontinuedAldactone 50 mg oral tablet 1 tablet = [...] Tablet, Print Requisition Start Date: 03/05/16 Status: Orderedbenzonatate 100 mg oral capsule 1 capsule = 100 mg, By Mouth, 3 times a day, PRN as needed for cough, # 21 capsule, 0 Refills, Maintenance, 08/17/22 16:31:00 EDT, Capsule, Partial fill upon patient request if the prescription is for a schedule II opioid drug. Start Date: 08/17/22 Stop Date: 08/24/22 Status: OrderedbuPROPion 150 mg/24 hours (XL) oral tablet, extended release 1 tablet = 150 mg, By Mouth, Daily, # 30 tablet, 0 Refills, Maintenance, 04/11/22 12:19:00 EDT, XL Tablet, [facility] 3, 1 tablet By Mouth Daily, 172.2, cm, 04/11/22 8:24:00 EDT, Height, 94.3, kg, 04/09/22 13:42:00 EDT, Dry Weight Start Date: 04/11/22 Status: Orderedcarvedilol 6.25 mg oral tablet 6.25 mg, 1, tablet, By Mouth, 2 times a day, # 60 tablet, Refills 0, Maintenance, 08/17/22 16:32:00 EDT, Partial fill upon patient request if the prescription is for a schedule II opioid drug. Start Date: 08/17/22 Status: Ordereddapagliflozin 10 mg oral tablet 1 tablet = 10 mg, By Mouth, Daily, # 90 tablet, 3 Refills, Maintenance, 04/23/22 12:03:00 EDT, Tablet, [facility], Partial fill upon patient [...] 2.5 mg, 1, tablet, By Mouth, Daily, # 30 tablet, Refills 0, Maintenance, 08/17/22 16:32:00 EDT, Partial fill upon patient request if the prescription is for a schedule II opioid drug. Start Date: 08/17/22 Status: OrderedNarcan 4 mg/0.1 mL nasal spray 0.1 mL = 4 mg, Naris, Left, Once, PRN as needed, repeat dose in 2-3 minutesalternasting nares, Maintenance, 04/05/21 15:56:00 EDT, ; Start Date: 04/05/21 Status: Orderednicotine 4 mg oral transmucosal gum 1 gum, By Mouth, Every 4 hours, PRN as needed, Maintenance, 11/26/21 11:20:00 EST, ; Start Date: 11/26/21 Status: OrderedPotassium Chloride (Eqv-K-Tab) 20 mEq oral tablet, extended release 1 tablet = 20 mEq, By Mouth, 2 times a day, 0 Refills, Maintenance, 08/17/22 16:32:00 EDT, Partial fill upon patient request if the prescription is for a schedule II opioid drug. Start Date: 08/17/22 Status: OrderedProAir HFA 90 mcg/inh inhalation aerosol [...] 1 Refills, Maintenance, 06/14/22 15:42:00 EDT, Tablet, [facility], 173, cm, 06/14/22 14:08:00 EDT, [...] [place] Back Pain Scale: 36 on 01/20/2013 Results Radiology Reports Exam Date Time Procedure Performing Provider Status 08/18/22 3:32 AM Abdomen AP So Mascorro; Kyle ([facility] ed) Notes:(Abdomen AP) Reason For Exam: Pain;PainRESULT: XR Abdomen AP XR Abdomen AP 1 view INDICATION/CLINICAL QUESTION: Reason: Pain; Clinical Question(s): Constipation COMPARISON: 05/20/2009 FINDINGS: Normal bowel gas pattern. No evidence of obstruction. No gross free air, although evaluation is limited by supine positioning. L4-5 intervertebral disc spacer radiopaque markers. Right upper quadrant surgical clips. Mild to moderate bilateral hip degenerative changes on single frontal projection. IMPRESSION: No specific radiographic evidence of acute process to the abdomen. WSN: [id number] Ordering Physician: Noy Black Dictated By: Megan Brenner MD Dictated Date/Time: 08/18/22 12:08 p Reviewed By: Megan Brenner MD Signed By: Megan Brenner MD Signed Date/Time: 08/18/22 12:08 pm Transcribed By: ROSA M Transcribed Date/Time: 08/18/22 12:07 pm Exam Date Time Procedure Performing Provider Status 08/17/22 4:48 AM Chest 2 Views Frontal and Lat Ilan Mantilla (Verified) Notes:(Chest 2 Views Frontal and Lat) Reason For Exam: Chest Pain;Other:RESULT: Chest 2 Views Frontal and Lat Chest 2 Views Frontal and Lat Hx of Present Illness: SOB WITH CHEST PAIN AND SWOLLEN LEGS X 2 DAYS; Reason: Other:; Chest Pain; Clinical Question(s): Other: COMPARISON: 06/08/2022 FINDINGS: LINES AND TUBES: None. LUNGS AND PLEURA: Intervally increased interstitial markings compared to prior study, nonspecific, may represent progressing pulmonary edema. Small left basilar effusion cannot be excluded. No large pneumothorax. HEART, MEDIASTINUM AND BREANNA: Mild prominence of the cardiac silhouette, unchanged. Left chest wall cardiac device with intracardiac lead to the right ventricle, stable. Normal upper mediastinal and hilar contour. BONES AND SOFT TISSUES: No acute abnormality. IMPRESSION: Interval progression to interstitial markings compared to prior study in the setting of cardiomegaly, raises suspicion for progressing pulmonary edema. Superimposed interstitial infectious or inflammatory process cannot be excluded. WSN: [id number] Ordering Physician: Nancy Alberts Dictated By: Megan Brenner MD Dictated Date/Time: 08/17/22 8:38 am Reviewed By: Megan Brenner MD Signed By: Megan Brenner MD Signed Date/Time: 08/17/22 8:38 am Transcribed By: ROSA M Transcribed Date/Time: 08/17/22 8:37 am Vital Signs Most recent to oldest 1 2 3 [Reference Range]: Height 173 cm 173 cm 173 cm (08/18/22 7:50 AM) (08/18/22 3:06 AM) (08/18/22 12: 19 AM) Weight 98.1 kg 98.7 kg (08/18/22 6:20 AM) (08/17/22 3:37 PM) Oxygen Saturation [94-100 98 % 98 % 95 % %] (08/18/22 7:50 AM) (08/18/22 3:06 AM) (08/18/22 12: 19 AM) Pulse Rate [55-90 bpm] 105 bpm 95 bpm 100 bpm *H* *H* *H* (08/18/22 7:50 AM) (08/18/22 3:06 AM) (08/18/22 12: 19 AM) Body Mass Index 32.98 [18.5-24.99] *>HHI* (08/17/22 3:37 PM) Blood Pressure 106/90 mm Hg 116/86 mm Hg 115/89 mm Hg [90-138/55-84 mm Hg] (08/18/22 7:50 AM) (08/18/22 3:06 AM) ( 2 12:19 AM) Respiratory Rate [16-30 20 br/min 18 br/min 18 br/mi n br/min] (08/18/22 8:29 AM) (08/18/22 7:50 AM) (08/18/22 3:0 6 AM) Temperature [96.8-100.4 97.6 DegF 98.2 DegF 98 DegF DegF] (08/18/22 7:50 AM) (08/18/22 3:06 AM) (08/18/22 12: 19 AM) Liters per Minute 0 L/min 0 L/min (08/18/22 12:19 AM) (08/17/22 9:09 PM) Mode of Delivery (Oxygen) Room air Room air Room a ir (08/18/22 7:50 AM) (08/18/22 3:06 AM) (08/18/22 12: 19 AM) Blood pressure sites Arm, left Arm, left Arm, left (08/18/22 7:50 AM) (08/18/22 3:06 AM) (08/18/22 12: 19 AM) Temperature Route Temporal Temporal Temporal (08/18/22 7:50 AM) (08/18/22 3:06 AM) (08/18/22 12: 19 AM) Dry Weight 89 kg (08/17/22 3:37 PM) Weight Obtained Via Bed scale Bed scale (08/18/22 6:20 AM) (08/17/22 3:37 PM) Dry Weight Obtained Via Patient/family stated (08/17/22 3:37 PM) Social History Social History Type Response Smoking Status 10 or more cigarettes (1/2 p ack or more)/day in last 30 days entered on: 06/06/22 Sex Note BHSPowerscribe , CIS S: TRANSCRIBE Megan Brenner MD S: VERIFY Event Display: Result: Authored Date: [id number] Chest 2 Views Frontal and Lat Hx of Present Illness: SOB WITH CHEST PAIN AND SWOLLEN LEGS X 2 DAYS; Reason: Other:; Chest Pain; Clinical Question(s): Other: COMPARISON: 06/08/2022 FINDINGS: LINES AND TUBES: None. LUNGS AND PLEURA: Intervally increased interstitial markings compared to prior study, nonspecific, may represent progressing pulmonary edema. Small left basilar effusion cannot be excluded. No large pneumothorax. HEART, MEDIASTINUM AND BREANNA: Mild prominence of the cardiac silhouette, unchanged. Left chest wall cardiac device with intracardiac lead to the right ventricle, stable. Normal upper mediastinal and hilar contour. BONES AND SOFT TISSUES: No acute abnormality. IMPRESSION: Interval progression to interstitial markings compared to prior study in the setting of cardiomegaly, raises suspicion for progressing pulmonary edema. Superimposed interstitial infectious or inflammatory process cannot be excluded. WSN: [id number] Ordering Physician: Nancy Alberts Dictated By: Megan Brenner MD Dictated Date/Time: 08/17/22 8:38 am Reviewed By: Megan Brenner MD Signed By: Megan Brenner MD Signed Date/Time: 08/17/22 8:38 am Transcribed By: ROSA M Transcribed Date/Time: 08/17/22 8:37 am XR Abdomen AP BHSPowerscribe , CIS S: TRANSCRIBE Megan Brenner MD: VERIFY Event Display: Result: Authored Date: [id number] XR Abdomen AP 1 view INDICATION/CLINICAL QUESTION: Reason: Pain; Clinical Question(s): Constipation COMPARISON: 05/20/2009 FINDINGS: Normal bowel gas pattern. No evidence of obstruction. No gross free air, although evaluation is limited by supine positioning. L4-5 intervertebral disc spacer radiopaque markers. Right upper quadrant surgical clips. Mild to moderate bilateral hip degenerative changes on single frontal projection. IMPRESSION: No specific radiographic evidence of acute process to the abdomen. WSN: [id number] Ordering Physician: Noy Black Dictated By: Megan Brenner MD Dictated Date/Time: 08/18/22 12:08 p Reviewed By: Megan Brenner MD Signed By: Megan Brenner MD Signed Date/Time: 08/18/22 12:08 pm Transcribed By: ROSA M Transcribed Date/Time: 08/18/22 12:07 pm Care Team PersonnelName: Mike Duong MD Address: [address] [place] [id number]
--- OUTSIDE RECORDS SUMMARY | 2022-10-09 22:51 | XMS_ITS | Continuity of Care Document ---
:1970 Author Organization [facility] Address [address] [place] [phone]- Care Team Providers Name Role Phone Rhoda VASQUEZ, Mike Primary Care Physician [place] [facility] [place] Date(s): 01/04/22 - 01/13/[address] [address] Encounter Diagnosis CHF exacerbation (Final) - 01/04/22 Pleural effusion (Final) - 01/04/22 Discharge Disposition: A-D/C Home Attending Physician: Shiela Marcos MD Admitting Physician: Oumar Pacheco MD Referring Physician: Not on Staff, Referring [...] 1 tablet, Tablet, By Mouth, Every 6 hours for 7 days, PRN for Pain , Moderate, Routine, 01/05/22 1:07:00 EST, Stop date 01/19/22 9:22:00 EST Start Date: 01/05/22 Stop Date: 01/13/22 Status: Discontinuedamiodarone 200 mg oral tablet 200 [...] oral tablet 3.125 mg, Tablet, By Mouth, 01/13/22 9:00:00 EST Start Date: 01/13/22 Stop Date: 01/13/22 Status: Completedcyclobenzaprine 10 mg oral tablet 10 mg, 1, tablet, By Mouth, 3 times a day Start Date: 04/05/21 Status: Orderedcyclobenzaprine 10 mg oral tablet 10 mg, Tablet, By Mouth, 01/13/22 9:00:00 EST Start Date: 01/13/22 Stop Date: 01/13/22 Status: CompletedEliquis 5 mg oral tablet 1 tablet = 5 mg, By Mouth, 2 times a day Start Date: 11/26/21 Status: Orderedlosartan 50 mg oral tablet 1 tablet = 50 mg, By Mouth, Daily in AM Start Date: 04/05/21 Status: Orderedlosartan 50 mg oral tablet 50 mg, Tablet, By Mouth, 01/13/22 9:00:00 EST Start Date: 01/13/22 Stop Date: 01/13/22 Status: Completedmelatonin 5 mg oral tablet 1 [...] 0 Refills, Maintenance, 01/13/22 9:10:00 EST, Tablet, [facility], Partial fill upon patient request [...] Exam Date Time Procedure Performing Provider Status 01/08/22 11:31 AM Chest Portable Kiera Tamez; Kyle (Verified) Notes:(Chest Portable) Reason For Exam: CHFRESULT: Chest Portable Chest Portable Reason: CHF; Clinical Question(s): Pleural Effusion COMPARISON: Multiple priors, most recently 01/04/2022. FINDINGS: LINES AND TUBES: Single lead left subclavian pacer wire is intact. Additional monitoring leads project over the chest. LUNGS AND PLEURA: Persistent ill-defined minimal airspace disease in the left lateral costophrenic angle and likely small residual pleural effusion. The rest of the lungs are clear. No overt pulmonary edema. No pneumothorax. HEART, MEDIASTINUM AND BREANNA: Moderate prominence of the cardiac silhouette, unchanged. Stable mild tortuosity of the descending thoracic aorta. BONES AND SOFT TISSUES: No acute abnormality. IMPRESSION: Stable minimal airspace disease in the left lateral costophrenic angle. Likely residual small pleural effusion. WSN: [id number] Ordering Physician: Jermaine Cuevas Dictated By: Deandre Cortez MD Dictated Date/Time: 01/08/22 11:40 a Reviewed By: Deandre Cortez MD Signed By: Deandre Cortez MD Signed Date/Time: 01/08/22 11:40 am Transcribed By: ROSA M Transcribed Date/Time: 01/08/22 11:37 am Exam Date Time Procedure Performing Provider Status 01/04/22 7:23 PM Chest 2 Views Frontal and Lat Bein , Viola; Au th (Verified) Notes:(Chest 2 Views Frontal and Lat) Reason For Exam: Chest Pain;Other:RESULT: Chest 2 Views Frontal and Lat Chest 2 Views Frontal and Lat Hx of Present Illness: SOB and L chest pain; Reason: Other:; Chest Pain; Clinical Question(s): Other: COMPARISON: 12/08/2021 FINDINGS: LINES AND TUBES: Single lead left subclavian pacer wire is intact. LUNGS AND PLEURA: Chronic blunting of left costophrenic angle with left basilar opacity unchanged possibly representing a small effusion with adjacent lower lobe atelectasis. Otherwise clear lungs. No pneumothorax. HEART, MEDIASTINUM AND BREANNA: Heart is enlarged exaggerated by AP technique. Normal upper mediastinal and hilar contour. BONES AND SOFT TISSUES: No acute abnormality. IMPRESSION: Unchanged small left pleural effusion with adjacent left lower lobe atelectasis. WSN: [id number] Ordering Physician: Steven Zhu Dictated By: Amando Joel MD Dictated Date/Time: 01/04/22 7:31 pm Reviewed By: Amando Joel MD Signed By: Amando Joel MD Signed Date/Time: 01/04/22 7:31 pm Transcribed By: ROSA M Transcribed Date/Time: 01/04/22 7:29 pm Vital Signs Most recent to oldest 1 2 3 [Reference Range]: Height 173 cm 173 cm 173 cm (01/13/22 8:58 AM) (01/13/22 3:48 AM) (01/12/22 8:4 8 PM) Weight 81.1 kg 81.1 kg 91.1 kg (01/12/22 11:02 AM) (01/12/22 3:47 AM) (01/09/22 3:4 6 AM) Oxygen Saturation [94-100 %] 98 % 99 % 96 % (01/13/22 8:58 AM) (01/13/22 3:48 AM) (01/12/22 8:4 8 PM) Pulse Rate [55-90 bpm] 78 bpm 78 bpm 79 bpm (01/13/22 9:20 AM) (01/13/22 8:58 AM) (01/13/22 3:4 8 AM) Body Mass Index [18.5-24.99] 27.1 30.44 31. 78 *H* *>HHI* *>HHI* (01/12/22 3:47 AM) (01/09/22 3:46 AM) (01/05/22 2:39 AM) Blood Pressure [90-138/55-84 108/74 mm Hg 108/74 mm Hg 108 /74 mm Hg mm Hg] (01/13/22 9:20 AM) (01/13/22 9:20 AM) (01/13/22 9:0 0 AM) Respiratory Rate [16-30 18 br/min 18 br/min 18 br/mi n br/min] (01/13/22 10:55 AM) (01/13/22 10:38 AM) (01/13/22 9 :18 AM) Temperature [96.8-100.4 DegF] 97.4 DegF 97.5 DegF 97 .8 DegF (01/13/22 8:58 AM) (01/13/22 3:48 AM) (01/12/22 8:4 8 PM) Liters per Minute 1 L/min 4 L/min 3 L/min (01/10/22 2:22 PM) (01/10/22 8:08 AM) (01/10/22 3:0 0 AM) Mode of Delivery (Oxygen) Room air Room air Room a ir (01/13/22 8:58 AM) (01/13/22 3:48 AM) (01/12/22 8:4 8 PM) Blood pressure sites Arm, right Arm, right Arm, right (01/13/22 9:00 AM) (01/13/22 8:58 AM) (01/13/22 3:4 8 AM) Temperature Route Oral Axillary Oral (01/13/22 8:58 AM) (01/13/22 3:48 AM) (01/12/22 8:4 8 PM) Dry Weight 95.1 kg (01/05/22 2:39 AM) Weight Obtained Via Bed scale Standing scale Standing sca le (01/13/22 3:48 AM) (01/12/22 11:02 AM) (01/12/22 3: 47 AM) Social History Social History Type Response Smoking Status Current every day smoker entered on: 11/07/15 Sex
--- OUTSIDE RECORDS SUMMARY | 2022-10-09 22:51 | XMS_ITS | Continuity of Care Document ---
:1970 Author Organization [facility] Address [address] [place] [phone]- Care Team Providers Name Role Phone Mike Duong MD Primary Care Physician Encounter [facility] [place] Date(s): 02/21/22 - 04/15/[address] [address]- Encounter Diagnosis Heart failure, unspecified (Final) - Discharge Disposition: A-D/C Home Attending Physician: Alice Leyva MD Admitting Physician: Alice Leyva MD Referring Physician: Alice Leyva MD Allergies, Adverse Reactions, Alerts No Known [...] Refills, Maintenance, 04/11/22 12:19:00 EDT, XL Tablet, [facility], 1 tablet By Mouth Daily, [...] 04/27/22 16:00:00 EDT, 04/11/22 12:27:00 EDT, Liquid, [facility], 10 mL By Mouth Every [...] 0 Refills, Maintenance, 04/11/22 12:17:00 EDT, Tablet, [facility], 172.2, cm, 04/11/22 8:24:00 EDT, [...]
--- OUTSIDE RECORDS SUMMARY | 2022-10-09 22:51 | XMS_ITS | Continuity of Care Document ---
:1970 Author Organization [facility] Address [address] [place] [phone]- Care Team Providers Name Role Phone Mike Duong MD Primary Care Physician En[place] [facility] [place] Date(s): 01/07/22 - 02/06/[address] [email or web address] Attending Physician: Not on Staff, Attending MD [...] 0 Refills, Maintenance, 01/13/22 9:10:00 EST, Tablet, [facility], Partial fill upon patient [...]
--- OUTSIDE RECORDS SUMMARY | 2022-10-09 22:51 | XMS_ITS | Continuity of Care Document ---
:1970 Author Organization [facility] Address [address] [place] [id number]- Care Team Providers Name Role Phone Mike Duong MD Primary Care Physician Encounter [facility] [place] ACCT R [id number] Date(s): 07/30/22 - 09/15/22 [facility] [address] [place] [id number]- Attending Physician: Sean Tiwari NP Admitting Physician: [...] Refills, Maintenance, 04/11/22 12:19:00 EDT, XL Tablet, [facility] 3, 1 tablet By Mouth Daily, 172.2, cm, 04/11/22 8:24:00 EDT, Height, 94.3, kg, 04/09/22 13:42:00 EDT, Dry Weight Start Date: 04/11/22 Status: Orderedcarvedilol 6.25 mg oral tablet 1, tablet, By Mouth, Daily in AM, AND EVENING., # 60 tablet, Refills 3, Maintenance, 09/15/22 10:52:00 EDT, Route to Pharmacy Electronically, [facility], 173, cm, 08/18/22 7:50:00 EDT, Height, 89, kg, 08/17/22 15:37:00 EDT, Dry We... Start Date: 09/15/22 Status: Ordereddapagliflozin 10 mg oral tablet 1 tablet = 10 mg, By Mouth, Daily, # 90 tablet, 3 Refills, Maintenance, 04/23/22 12:03:00 EDT, Tablet, [facility], Partial fill upon patient request [...] 1 Refills, Maintenance, 06/14/22 15:42:00 EDT, Tablet, [facility], 173, cm, 06/14/22 14:08:00 EDT, Height, 89, kg, 06/07/22 13:13:00 EDT, Dry Weight Start Date: 06/14/22 Status: Ordered Problem List Condition Confirmation Course Effective Dates Status Health I nformant Status Anxiety Confirmed Active Cardiomyopathy with Confirmed Active implantable cardioverter-defibril lator Cervical Confirmed Active radiculopathy Cigarette smoker Confirmed Active Depression Confirmed Active Failed back syndrome Confirmed Active HTN (hypertension) Confirmed Active HLD (hyperlipidemia) Confirmed Active Limitation due to Confirmed Active disability1 Myalgia Confirmed Active Obese class I Confirmed Active TYRONE on CPAP Confirmed Active Atrial fibrillation Confirmed Active Restrictive lung Confirmed Active disease Tobacco dependence Confirmed Active 1initial Oswestry Disability Scale: 52% ( severe disability ) on 01/20/2013; initial [place] Back Pain Scale: 36 on 01/20/2013 Social History Social History Type Response Smoking Status 10 or more cigarettes (1/2 p ack or more)/day in last 30 days entered on: 06/06/22 Sex Patient Care team information PersonnelName: Mike Duong MD Address: Address: [address] [place] [id number]
--- OUTSIDE RECORDS SUMMARY | 2022-10-09 22:51 | XMS_ITS | Continuity of Care Document ---
:1970 Author Organization [facility] Address [address] [place] [address]- Care Team Providers Name Role Phone Mike Duong MD Primary Care Physician Encounter 01/14/22 - 02/25/22 [facility] [address] [place] [address]- Discharge Disposition: GOALS MET Allergies, Adverse Reactions, Alerts No Known Allergies [...] Refills, Maintenance, 01/13/22 9:10:00 EST, Tablet, [facility], Partial fill upon patient request if [...]
--- OUTSIDE RECORDS SUMMARY | 2022-10-09 22:51 | XMS_ITS | Continuity of Care Document ---
:1970 Author Organization [facility] Address [address] [place] [id number] Care Team Providers Name Role Phone Rhoda VASQUEZ, Mike Primary Care Physician Encounter [facility] [place] Date(s): 04/05/21 - 04/09/[address] [id number] Encounter Diagnosis Congestive heart failure (Final) - 04/05/21 Discharge Disposition: A-D/C Home Attending Physician: Paddy Leal DO Admitting Physician: Amando Nichols MD Referring Physician: Not on Staff, Referring [...] Orderedcarvedilol 25 mg oral tablet 25 mg, Tablet, By Mouth, 04/09/21 9:00:00 EDT Start Date: 04/09/21 Stop Date: 04/09/21 Status: Completedcarvedilol 25 mg oral tablet 25 mg, 1, [...] 0 Refills, Maintenance, 04/09/21 14:19:00 EDT, Gel, [facility], Partial fill upon [...] 01/14/17 Status: Orderedlosartan 50 mg oral tablet 50 mg, Tablet, By Mouth, 04/09/21 9:00:00 EDT Start Date: 04/09/21 Stop Date: 04/09/21 Status: Completedlosartan 50 mg oral tablet 1 [...] Daily in AM Start Date: 04/05/21 Status: OrderedtraMADol 50 mg oral tablet 1 tablet = 50 mg, By Mouth, Every 12 hours, PRN Pain , Moderate, # 14 tablet, 0 Refills, Acute 04/16/21 14:20:00 EDT, 04/09/21 14:20:00 EDT, Tablet, [facility], Partial fill upon patient request if the prescription is for a schedule II o... Start Date: 04/09/21 Stop Date: 04/16/21 Status: OrderedViagra 100 mg oral tablet 1/2 [...] Exam Date Time Procedure Performing Provider Status 04/05/21 8:42 AM Chest 2 Views Frontal and Lat Mónica Voss odified Notes:(Chest 2 Views Frontal and Lat) Reason For Exam: CoughRESULT: Chest 2 Views Frontal and Lat Chest 2 Views Frontal and Lat Hx of Present Illness: [place] [facility] [place]B and was told he had pulm edema and was going to be admitted but he left AMA. Today he comes in with same symptoms, 10 10 constant CP with SOB.Denies fevers, chills, cough,; Reason: Cough; Clinical Question(s): Pneumonia COMPARISON: 09/09/2017 FINDINGS: Stable AICD lead No acute cardiopulmonary process IMPRESSION: No acute abnormality. WSN: [id number] Ordering Physician: Charisse Sinha Dictated By: Jose Luis Angelo MD Dictated Date/Time: 04/05/21 8:45 am Reviewed By: Jose Luis Angelo MD Signed By: Jose Luis Angelo MD Signed Date/Time: 04/05/21 8:45 am Transcribed By: ROSA M Transcribed Date/Time: 04/05/21 8:44 am Vital Signs Most recent to oldest 1 2 3 [Reference Range]: Weight 86.7 kg 81.2 kg 89.5 kg (04/09/21 6:41 AM) (04/08/21 6:44 AM) (04/07/21 5:14 AM) Oxygen Saturation [94-100 %] 100 % 95 % 95 % (04/09/21 7:51 AM) (04/09/21 2:00 AM) (04/08/21 8:18 PM) Pulse Rate [55-90 bpm] 77 bpm 78 bpm 75 bpm (04/09/21 9:49 AM) (04/09/21 7:51 AM) (04/09/21 2:0 0 AM) Blood Pressure [90-138/55-84 mm 104/80 mm Hg 104/80 mm Hg 92/70 mm Hg Hg] (04/09/21 9:49 AM) (04/09/21 9:49 AM) (04/09/21 7:5 1 AM) Respiratory Rate [16-30 br/min] 20 br/min 20 br/min 22 br/min (04/09/21 7:51 AM) (04/09/21 2:00 AM) (04/08/21 8:18 PM) Temperature [96.8-100.4 DegF] 97.5 DegF 97.6 DegF 96 .9 DegF (04/09/21 7:51 AM) (04/09/21 2:00 AM) (04/08/21 8:18 PM) Liters per Minute 2 L/min 3 L/min 2 L/min (04/07/21 9:56 PM) (04/06/21 6:12 PM) (04/06/21 2:13 P M) Mode of Delivery (Oxygen) Room air Room air Room a ir (04/09/21 7:51 AM) (04/09/21 2:00 AM) (04/08/21 8:18 PM) Blood pressure sites Arm, left Arm, left Arm, left (04/09/21 7:51 AM) (04/09/21 2:00 AM) (04/08/21 8:18 PM) Temperature Route Temporal Temporal Temporal (04/09/21 7:51 AM) (04/09/21 2:00 AM) (04/08/21 8:18 PM) Weight Obtained Via Bed scale Bed scale Bed scale (04/09/21 6:41 AM) (04/08/21 6:44 AM) (04/07/21 5:14 AM) Social History Social History Type Response Smoking Status Current every day smoker entered on: 11/07/15 Sex
[2022-10-09 23:17] LABS: Reflex Lactate? Lactic Acid Added
== END 2022-10-09 23:22 | disposition left against medical advice (07) ==
PROVIDERS: Emergency Medicine; Emergency Provider Emergency Medicine; PCP Orthopaedic Surgery
DX: R60.0 Localized edema (principal); R05.9 Cough, unspecified; I50.9 Heart failure, unspecified; F17.210 Nicotine dependence, cigarettes, uncomplicated; Z71.6 Tobacco abuse counseling; Z20.822 Contact with and (suspected) exposure to COVID-19; Z79.899 Other long term (current) drug therapy
CPT/HCPCS: 36415; 71045; 80048; 80076; 83605; 83880; 84484; 85025; 85610; 87635; 93005; 99283

== ENCOUNTER 2022-10-17 08:18 | Inpatient (IN) | payer MEDICARE, MEDICAID, SELFPAY ==
[2022-10-17] VITALS (8 sets, daily range): BP systolic 99–123; BP diastolic 69–94; PULSE 91–100; RESP 12–24; TEMP 35.9–36.4; O2SAT 94–100; BMI 27.3
--- NOTE | ~2022-10-17 | CT_ITS ---
EXAMINATION: CT CHEST WITHOUT CONTRAST CLINICAL INFORMATION: Hypoxia COMPARISON: Previous chest x-ray most recent 10/17/[address] August 2022 TECHNIQUE: Multidetector volumetric CT imaging of the chest was done. Axial MIP volume rendering provided. Sagittal and coronal reformatted images were obtained. This CT examination was performed using dose optimization techniques as appropriate, variously including the following: *Automated exposure control *Adjustment of mA and/or kV according to patient size (this includes techniques or standardized protocols for targeted exams where dose is matched to indication/reason for exam; i.e. extremities or head) *Use of iterative reconstruction technique DLP: 209 mGy-cm FINDINGS: GRAPHIC DESIGN SPECIALIST: LUNGS: Evaluation of the lungs is limited due to respiratory motion artifact There is heterogeneous attenuation of the lungs probably representing hypoventilatory changes related to a trapping. There may also be mild emphysema. There is interval increase in the bilateral pulmonary nodules, right greater than left. Majority of the nodules appear semisolid or groundglass attenuation. Some may be peribronchial or centrilobular. Largest nodule is a groundglass attenuation or semisolid nodules right upper lobe axial image 220 and right middle lobe axial image 290 series 5 measuring 5 mm. There is chronic linear scarring or subsegmental atelectasis in the left lower lobe that is stable. MEDIASTINUM: There is shotty mediastinal lymphadenopathy. Larger lymph nodes are slightly decreased in size from August 2022 exam. Largest lymph node is a right precarinal lymph node measuring 1 cm in short axis axial image 21 series 3 compared to 1.5 cm August 2022. MEMS device in the left lower lobe pulmonary artery. The heart is enlarged. There is a left clavian single chamber pacemaker with tip projecting over the right ventricular apex. There is no pericardial effusion. Normal caliber thoracic aorta. Normal-appearing thyroid gland. CORONARY ARTERY CALCIFICATION: Mild to moderate PLEURA: There is no pleural effusion. No pleural mass or thickening. AXILLA: No lymphadenopathy. UPPER ABDOMEN: Unremarkable. OSSEOUS STRUCTURES: Degenerative changes of the spine. CT/CT chest wo IV con IMPRESSION: Interval increase in the small bilateral pulmonary nodules, largest measuring 5 mm in the right upper and middle lobes. Given place change roof bolter short time interval, infectious or inflammatory process is favored. Heterogeneous mosaic attenuation probably representing hypoventilatory changes or air-trapping. Slight interval decrease in mediastinal lymphadenopathy. Stable chronic scarring or subsegmental atelectasis in the left lower lobe. Stable enlargement of the heart. Fleischner guidelines were followed.
--- NOTE | ~2022-10-17 | XR_ITS ---
EXAMINATION: XR CHEST CLINICAL INFORMATION: Cough, volume overload. COMPARISON: 10/09/2022 chest radiograph. TECHNIQUE: 2 views of the chest were obtained. FINDINGS: Support devices: Left-sided pacemaker appears in good position without abnormality or change. No significant abnormality is noted involving the heart, lungs, mediastinum, bony thorax or soft tissues. XR/XR chest 2V IMPRESSION: No acute cardiopulmonary process.
[2022-10-17 08:46] LABS: MANUAL DIFF FLAG NO
[2022-10-17 08:48] LABS: Basophils Absolute Auto 0.1 X10*3/uL (0.0-0.2); Basophils Percent Auto 0.8 % (0-2); Eosinophils Absolute Auto 0.1 X10*3/uL (0.0-0.4); Eosinophils Percent Auto 1.4 % (0-4); Hematocrit 41.6 % (42.0-52.0); Hemoglobin 13.4 g/dl (14.0-18.0); Imm Gran Abs Auto 0.02 X10*3/uL (0.00-0.03); Imm Gran Pct Auto 0.3 % (0.0-0.4); Lymphocytes Absolute Auto 0.9 X10*3/uL (1.2-4.9); Lymphocytes Percent Auto 11.2 % (20-40); Mean Corpuscular HGB Conc 32.2 g/dl (31.0-36.0); Mean Corpuscular Hemoglobin 30.2 pg (27.0-33.0); Mean Corpuscular Volume 93.9 fL (80.0-98.0); Mean Platelet Volume 10.4 fL (9.4-12.4); Monocytes Absolute Auto 0.6 X10*3/uL (0.1-1.2); Monocytes Percent Auto 7.1 % (2-11); Neutrophils Absolute Auto 6.2 x10*3/uL (2.0-8.3); Neutrophils Percent Auto 79.2 % (45-73); Platelet Count 244 X10*3/uL (160-400); Red Blood Count 4.43 X10*6/uL (4.60-5.80); Red Cell Distribution Width 19.3 % (11.0-16.0); White Blood Count 7.8 X10*3/uL (4.8-10.8)
[2022-10-17 09:06] LABS: Alanine Aminotransferase 20 U/L (0-40); Albumin Level 3.5 g/dL (3.5-5.0); Alkaline Phosphatase 110 U/L (39-117); Anion Gap 16 (12-20); Aspartate Amino Transferase 34 U/L (5-37); Bilirubin Total 3.1 mg/dL (0.0-1.0); Blood Urea Nitrogen 18 mg/dL (9-16); Calcium 9.5 mg/dL (8.4-10.2); Carbon Dioxide 33 mmol/L (22-29); Chloride 89 mmol/L (96-108); Creatinine Clr Calc Pharmacy 60.3; Estimated Glomerular Filt Rate 54; Glucose Random 173 mg/dL (60-115); Potassium 3.7 mmol/L (3.3-5.1); Sodium 134 mmol/L (135-145); Total Protein 7.3 g/dL (6.5-8.0)
[2022-10-17 09:37] LABS: B Type Natriuretic Peptide 2578 pg/mL (<100)
--- NOTE | 2022-10-17 10:02 | ECG_ITS ---
Test Reason : CHEST PAIN Blood Pressure : / mmHG Vent. Rate : 096 BPM Atrial Rate : 096 BPM P-R Int : 176 ms QRS Dur : 104 ms QT Int : 406 ms P-R-T Axes : 066 -43 090 degrees QTc Int : 512 ms Normal sinus rhythm Possible Left atrial enlargement Left anterior fascicular block Intra-ventricular conduction delay Prolonged QT Nonspecific T wave abnormality Lateral leads Abnormal ECG When compared with ECG of 09-OCT-2022 21:26, No significant change was found Referred By: Gladis Diaz Electronically Signed By:YASH GASPAR MD
--- NOTE | 2022-10-17 10:23 | ED.GENADULT ---
HPI - General Adult General Chief complaint: General Medical Stated complaint: chest pain cough Time Seen by Provider: 10/17/22 10:01 Source: patient Mode of arrival: ambulatory Limitations: no limitations History of Present Illness HPI narrative: 52 year old male with PMH of decompensated congestive heart failre with reduced ejection fraction of 15-20%,nonischemic cardiomyopathy,Back injuries,CVA (cerebral vascular accident), COPD,HTN (hypertension), NSVT (nonsustained ventricular tachycardia) with ICD (implantable cardioverter-defibrillator) and artificial cardiac pacemaker in place who presents to the ED c/o worsening SOB, cough , chest pain and bilateral lower leg edema since last week..He reports urinary retention and decreased urinary output. He reports waking up this morning being unable to wear his pants or shoes due to worsening edema. He reports being compliant with his medications and with the fluid and salt restriction. He reports associated headache,loss of appetite. He denies any lightheadedness, dizziness, nausea, vomiting. He reports pain across his entire chest from coughing. Worse with palpation and movement. He came to the ED on October 09 for similar complaints, had lab work performed but ended up leaving without being treated due to prolonged wait time. He states his symptoms have been continuing to worse since then. He states he is not going to leave now because he feels so terrible. He tried to stand up yesterday and his feet hurt so bad he had to lay back down and could not get out of bed all day. MD complaint: fluid overload Onset (ago): week(s) (Symptoms have been worsening since last week) Location: chest, left, right and lower extremity Radiation: non-radiation Severity: severe Severity scale (1-10): 8 Quality: aching Pain Consistency: constant Relieving factors: none Exacerbating factors: movement Associated symptoms: chest pain, cough, loss of appetite, malaise, shortness of breath and weakness Treatments prior to arrival: none Related Data Home Medications Medication Instructions Recorded Confirmed atorvastatin 40 mg tablet 40 mg PO DAILY 06/14/21 08/07/22 hydrocodone 10 mg-acetaminophen 1 tab PO Q4-6H PRN pain 06/14/21 08/07/22 325 mg tablet dapagliflozin 10 mg tablet 10 mg PO DAILY 03/23/22 08/07/22 ([facility]) bupropion HCl 150 mg 24 hr tablet, 1 tab PO DAILY 07/12/22 08/07/22 extended release ipratropium 0.5 mg-albuterol 3 mg 1 amp inhalation 6XD PRN Shortness 07/12/22 08/07/22 (2.5 mg base)/3 mL nebulization Of Breath Or Wheezing soln torsemide 20 mg tablet 3 tab PO BID 07/12/22 08/07/22 albuterol sulfate 90 mcg/actuation 2 puff inhalation Q6H PRN Dyspnea 08/07/22 08/07/22 aerosol inhaler carvedilol 6.25 mg tablet 1 tab PO BID 08/07/22 08/07/22 losartan 50 mg tablet 2 tab PO DAILY 08/07/22 08/07/22 metolazone 2.5 mg tablet 1 tab PO DAILY 08/07/22 08/07/22 potassium chloride 20 mEq/15 mL 15 ml PO BID 08/07/22 08/07/22 oral liquid Previous Rx's Medication Instructions Recorded apixaban 5 mg tablet (Eliquis) 5 mg PO BID@0600,1800 #60 tabs 06/18/21 amiodarone 200 mg tablet 200 mg PO QAM 90 days #90 tabs 07/16/22 benzonatate 100 mg capsule 100 mg PO TID PRN cough #20 caps 08/07/22 spironolactone 50 mg tablet 50 mg PO QAM #30 tabs 08/20/22 Allergies Allergy/AdvReac Type Severity Reaction Status Date / Time sacubitril [From Entresto] AdvReac Rash Verified 08/06/22 21:54 valsartan [From Entresto] AdvReac Rash Verified 03/05/22 13:12 Review of Systems Review of Systems: Constitutional: No Fever, No Chills ENT/Mouth: No sore throat, No Rhinorrhea, +Congestion Eyes: No Eye Pain, No Swelling, No Redness Cardiovascular: +Chest Pain, +SOB, + Orthopnea, +bilateral leg Edema Respiratory: +Cough, No Sputum, No Wheezing, No dyspnea Gastrointestinal: No Nausea, No Vomiting, No Diarrhea, No abdominal Pain Genitourinary: No Dysuria, , No Hematuria ,+Urinary retention, + output Musculoskeletal: No joint pain, + Myalgias Skin: No Skin Lesions, No rash Neuro: No Weakness, No Numbness, No Dizziness, +Headache PMF Past Medical History Attestation statement: The following information was validated with the patient. 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 Social History Social History Household Members: None Housing: House Do you presently have visiting nurse or other home services: No Unable to assess alcohol history related to: Unknown Alcohol intake: never Patient Tobacco Use Status: Current everyday Tobacco user Tobacco use type: Cigarette Cigarettes Per Day: 5 Advance Directives: No Advance Directives Information Provided: Yes service: No Current occupational status: disabled Physical Exam ED Vital Signs: Vital Signs - 24 hr 10/17/22 08:31 10/17/22 09:53 10/17/22 10:23 Temperature 97.2 F 97.6 F Pulse Rate 100 91 92 Respiratory Rate 18 22 H 24 H Blood Pressure 123/94 H 119/91 H 119/84 Pulse Oximetry 99 96 Oxygen Delivery Method Room Air Room Air Room Air BMI result Body Mass Index 27.3 Appearance: Alert. Oriented X3. + acute distress. Eyes: Pupils equal, round and reactive to light. ENT: Pharynx normal. Neck: Normal inspection. Neck supple. CVS: Normal heart rate and rhythm. Pulses normal. 4+ Bilateral leg edema Respiratory: +respiratory distress.+ Diminished breath sound, +Crackles on auscultation Abdomen: Soft and nontender. +BS x4 Skin: Skin warm and dry. Normal skin color. Normal skin turgor. No rashes. Extremities: 4+ lower extremity edema to the upper thighs Neuro: Oriented X 3. No motor deficit. No sensory deficit. Globally weak, nonfocal Course Course Course Narrative: 52-year-old female with significant cardiac history including systolic heart failure, status post ICD, and NSVT, COPD who is coming in with anasarca, shortness of breath, coughing. On examination he has 4+ pitting edema to his upper thighs as well as auscultation of his lungs revealing crackles. He desaturated to 83% on room air, was placed on 2 L nasal cannula with improvement in his sats 98. Will check basic lab workup, chest x-ray, viral PCR and plan for admission for aggressive IV diuresis. IV Lasix has been ordered. He may require infusion Reevaluation(s) Reevaluation #1: Patient came back COVID positive. Upon review of records he tested positive for COVID on the 09 of October. He was unaware of these results. He is vaccinated with Moderna x2, has not gotten booster. This could be contributing to his cough and general malaise. His x-ray is clear. Will hold off on IV steroids for now given the propensity to retain fluid with IV steroids. Will continue IV diuresis and plan for admission. Patient agrees with plan. Medications Administered Discontinued Medications Generic Name Dose Route Start Last Admin Trade Name Freq PRN Reason Stop Dose Admin Acetaminophen 975 mg 10/17/22 11:18 10/17/22 11:36 Acetaminophen 325 Mg Tablet PO 10/17/22 11:19 975 mg ONCE ONE Administration Furosemide 60 mg 10/17/22 10:18 10/17/22 11:11 Furosemide 100 Mg/10 Ml Vial IVPUSH 10/17/22 10:19 60 mg ONCE ONE Administration Protocol Oxycodone HCl 5 mg 10/17/22 11:18 10/17/22 11:36 Oxycodone Hcl Immed Release 5 Mg Tablet PO 10/17/22 11:19 5 mg ONCE ONE Administration Potassium Chloride 40 meq 10/17/22 10:18 10/17/22 11:11 Potassium Chloride Er 20 Meq Tab.Er.Prt PO 10/17/22 10:19 40 meq ONCE ONE Administration Medical Decision Making [facility] Narrative Medical decision making narrative: 52 year old male with PMH of decompensated congestive heart failre with reduced ejection fraction of 15-20%,nonischemic cardiomyopathy,Back injuries,CVA (cerebral vascular accident), COPD,HTN (hypertension), NSVT (nonsustained ventricular tachycardia) with ICD (implantable cardioverter-defibrillator) and artificial cardiac pacemaker in place who presents to the ED c/o worsening SOB, cough , chest pain and bilateral lower leg edema since last week associated with decreased urinary output. On exam,VSS, Crackles on auscultation, 4+ pitting edema. Concerned for Acute on chronic congestive heart failure. Pna: IV furosemide and Potassium chloride Labs, Chest Xray, EKG, Flu, RSV/COVID swab Lab Data Result diagrams: 10/17/22 08:42 10/17/22 08:42 Labs: Lab Results 10/17/22 10/17/22 10/17/22 Range/Units 08:42 08:42 08:42 WBC 7.8 (4.8-10.8) X10*3/uL RBC 4.43 L (4.60-5.80) X10*6/uL Hgb 13.4 L (14.0-18.0) g/dl Hct 41.6 L (42.0-52.0) % MCV 93.9 (80.0-98.0) fL MCH 30.2 (27.0-33.0) pg MCHC 32.2 (31.0-36.0) g/dl RDW 19.3 H (11.0-16.0) % Plt Count 244 (160-400) X10*3/uL MPV 10.4 (9.4-12.4) fL Immature Gran % (Auto) 0.3 (0.0-0.4) % Neut % (Auto) 79.2 H (45-73) % Lymph % (Auto) 11.2 L (20-40) % [place] % (Auto) 7.1 (2-11) % Eos % (Auto) 1.4 (0-4) % Baso % (Auto) 0.8 (0-2) % Lymph # (Auto) 0.9 L (1.2-4.9) X10*3/uL [place] # (Auto) 0.6 (0.1-1.2) X10*3/uL Eos # (Auto) 0.1 (0.0-0.4) X10*3/uL Baso # (Auto) 0.1 (0.0-0.2) X10*3/uL Abs Immat Gran (auto) 0.02 (0.00-0.03) X10*3/uL Absolute Neuts (auto) 6.2 (2.0-8.3) x10*3/uL Absolute Nucleated RBC 0.000 (0.0-0.012) X10*3/uL Nucleated RBC % (auto) 0.0 (0.0-0.2) /100WBC Sodium 134 L (135-145) mmol/L Potassium 3.7 (3.3-5.1) mmol/L Chloride 89 L (96-108) mmol/L Carbon Dioxide 33 H (22-29) mmol/L Anion Gap 16 (12-20) BUN 18 H (9-16) mg/dL Creatinine 1.37 (0.5-1.4) mg/dL Estim Creat Clear Calc 60.3 Estimated GFR 54 Random Glucose 173 H (60-115) mg/dL Calcium 9.5 (8.4-10.2) mg/dL Magnesium 2.1 (1.6-2.6) mg/dL Total Bilirubin 3.1 H (0.0-1.0) mg/dL AST 34 (5-37) U/L ALT 20 (0-40) U/L Alkaline Phosphatase 110 (39-117) U/L Troponin I High Sens (<3.5-35.0) ng/L B-Natriuretic Peptide 2578 H (<100) pg/mL Total Protein 7.3 (6.5-8.0) g/dL Albumin 3.5 (3.5-5.0) g/dL COVID-19 ([facility]) (Negative) COVID-19 Clin Com Influenza Type A (PREM) (Negative) Influenza Type B (PREM) (Negative) Influenza A & B Note 10/17/22 10/17/22 10/17/22 Range/Units 08:42 11:39 11:39 WBC (4.8-10.8) X10*3/uL RBC (4.60-5.80) X10*6/uL Hgb (14.0-18.0) g/dl Hct (42.0-52.0) % MCV (80.0-98.0) fL MCH (27.0-33.0) pg MCHC (31.0-36.0) g/dl RDW (11.0-16.0) % Plt Count (160-400) X10*3/uL MPV (9.4-12.4) fL Immature Gran % (Auto) (0.0-0.4) % Neut % (Auto) (45-73) % Lymph % (Auto) (20-40) % [place] % (Auto) (2-11) % Eos % (Auto) (0-4) % Baso % (Auto) (0-2) % Lymph # (Auto) (1.2-4.9) X10*3/uL [place] # (Auto) (0.1-1.2) X10*3/uL Eos # (Auto) (0.0-0.4) X10*3/uL Baso # (Auto) (0.0-0.2) X10*3/uL Abs Immat Gran (auto) (0.00-0.03) X10*3/uL Absolute Neuts (auto) (2.0-8.3) x10*3/uL Absolute Nucleated RBC (0.0-0.012) X10*3/uL Nucleated RBC % (auto) (0.0-0.2) /100WBC Sodium (135-145) mmol/L Potassium (3.3-5.1) mmol/L Chloride (96-108) mmol/L Carbon Dioxide (22-29) mmol/L Anion Gap (12-20) BUN (9-16) mg/dL Creatinine (0.5-1.4) mg/dL Estim Creat Clear Calc Estimated GFR Random Glucose (60-115) mg/dL Calcium (8.4-10.2) mg/dL Magnesium (1.6-2.6) mg/dL Total Bilirubin (0.0-1.0) mg/dL AST (5-37) U/L ALT (0-40) U/L Alkaline Phosphatase (39-117) U/L Troponin I High Sens 16.7 (<3.5-35.0) ng/L B-Natriuretic Peptide (<100) pg/mL Total Protein (6.5-8.0) g/dL Albumin (3.5-5.0) g/dL COVID-19 ([facility]) Positive A (Negative) COVID-19 Clin Com See Note Influenza Type A (PREM) Negative (Negative) Influenza Type B (PREM) Negative (Negative) Influenza A & B Note See Note ECG Data Attestation: I personally reviewed and interpreted this ECG as follows: Prior ECG tracings: available for review Interpretation: Normal sinus rhythm, ventricular rate 96 beats per minute, prolonged QRS 104 MS, prolonged QTC 512 MS, nonspecific bundle-branch block. Critical Care Time Critical Care Time Critical Care Time: Yes Total Critical Care Time: 36 Attestation: I have personally provided critical care time exclusive of time spent on separately billable procedures. Time includes review of lab data, radiology results, discussion with consultants, and monitoring for potential decompensation. Intervention performed as documented. Discharge Plan Discharge Clinical Impression: Acute systolic (congestive) heart failure, COVID-19, Anasarca Patient Disposition: Admitted As Inpatient
[2022-10-17 10:33] LABS: Troponin-I High Sensitivity 16.7 ng/L (<3.5-35.0)
[2022-10-17 10:46] LABS: Magnesium 2.1 mg/dL (1.6-2.6)
[2022-10-17] MEDS: Furosemide 100 MG/10 ML VIAL 60 MG IVPUSH (11:11)
[2022-10-17] MEDS: Potassium Chloride ER 20 MEQ TAB.ER.PRT 40 MEQ PO (11:11)
[2022-10-17] MEDS: oxyCODONE HCl Immed Release 5 MG TABLET PO (11:36)
[2022-10-17] MEDS: Acetaminophen 325 MG TABLET 975 MG PO (11:36)
[2022-10-17 11:53] LABS: COVID-19 Test Positive (Negative); IDNOW Serial# 16C4AD1C
[2022-10-17 12:00] LABS: IDNOW Serial# BCCEAD1C; Influenza A Negative (Negative); Influenza B2 Negative (Negative)
--- NOTE | 2022-10-17 14:23 | PHA.MEDREC ---
Pharmacy Consult ? Medication Reconciliation Pharmacy has completed the medication reconciliation. Patient was very frustrated at time of interview. Patient states he has not taken his medications in about a week due to confusion. He states he doesn't know what hes suppose to take, what hes not, what they do, etc. I told patient he could request a pharmacy consult while inpatient and I or another pharmacist could help explain how to take his meds, what to take and their indications. Patient told me to call [facility] for his medications.
--- NOTE | 2022-10-17 15:43 | P.HPHOSP_ITS ---
History of Present Illness Date of Service: 10/17/22 Attending physician on admission: Aldair Sinha Chief Complaint: sob, edema 52-year-old male with history of heart failure with reduced ejection fraction last echocardiogram showing EF 15-20%, nonischemic cardiomyopathy, history CVA, chronic low back pain, COPD, hypertension, and SVT with ICD and cardiac pacer in place, history of VFib presented to the ED this morning complaining of shortness of breath, dyspnea on exertion, nonproductive cough, bilateral lower extremity edema that has been worsening over the last week. States the swelling has been so severe today that he was unable to get his shoes and socks on. He is also reporting diffuse pleuritic chest pain as well as urinary retention and decreased urinary output, headache, anorexia. He did present to the ED with similar symptoms on 10/09 and was diagnosed with COVID-19 on that date but was unaware of this diagnosis. He did again test positive for COVID-19 today. On arrival, patient tachycardic to 100, tachypneic to 24. Patient is afebrile without hypotension or hypoxia. No leukocytosis. Stable normocytic anemia. Renal function baseline. Sodium 134, potassium 3.7, chloride 89, CO2 33, anion gap 16, glucose 173. Total bilirubin 3.1. AST 34, ALT 20. Denies any alcohol use in the last 10 years. No illicit drug use. He is an everyday smoker. CXR is negative for any acute cardiopulmonary process. BNP 2578. Troponin 16.7. Despite negative chest x-ray, patient is quite fluid overloaded with anasarca. Given 60 mg IV Lasix along with KCl 40 mEq. Patient to be admitted for acute CHF exacerbation with anasarca and COVID 19. Review of Systems Review of Systems: General: No fevers, malaise, unintentional weight loss HEENT: No blurred vision, diplopia. No sore throat, nasal congestion, rhinorrhea, sinus pain, ear pain Cardiovascular: +pleuritic CP, +leg edema. No chest pain, palpitations, or leg edema Respiratory: +orthopnea, +pND, +KIRKLAND, +cough, +wheezing GI: No abdominal pain, nausea, vomiting, diarrhea, constipation, melena, hematochezia : No dysuria, hematuria, increased urinary frequency, decreased urinary output MSK: No myalgia, back pain Neuro: No headaches, weakness, paresthesias Skin: No rashes or lesions [facility] Medical History Acute on chronic systolic heart failure Artificial cardiac pacemaker Back injuries Cardiomyopathy Chronic combined systolic and diastolic CHF, NYHA class 3 COPD (chronic obstructive pulmonary disease) Current use of termite control representative anticoagulation CVA (cerebral vascular accident) History of COPD HTN (hypertension) Hypertension ICD (implantable cardioverter-defibrillator) in place NSVT (nonsustained ventricular tachycardia) Family History Father Prostate cancer Mother No problems noted. Surgical History Hx of cardiac cath (~08/2015) Social History Household Members: None Housing: House Do you presently have visiting nurse or other home services: No Unable to assess alcohol history related to: Unknown Alcohol intake: never Patient Tobacco Use Status: Current everyday Tobacco user Tobacco use type: Cigarette Cigarettes Per Day: 5 Advance Directives: No Advance Directives Information Provided: Yes service: No Current occupational status: disabled Meds Allergies Allergy/AdvReac Type Severity Reaction Status Date / Time sacubitril [From Entresto] AdvReac Rash Verified 08/06/22 21:54 valsartan [From Entresto] AdvReac Rash Verified 03/05/22 13:12 Active Medications: Current Medications Acetaminophen (Acetaminophen 325 Mg Tablet) 650 mg PO Q6H PRN PRN Reason: Pain, Mild (Pain Scale 1-3) Amiodarone HCl (Amiodarone Hcl 200 Mg Tablet) 200 mg PO QAM BETTINA Apixaban (Apixaban 5 Mg Tablet) 5 mg PO BID@0600,1800 BETTINA Furosemide (Furosemide 40 Mg/4 Ml Vial) 40 mg IVPUSH DAILY BETTINA; Protocol Ondansetron HCl (Ondansetron Hcl 4 Mg/2 Ml Vial) 4 mg IVPUSH Q8H PRN PRN Reason: Nausea and Vomiting Pharmacy Consult (Consult Rx Perform Med Rec) 1 each MISCELLANE ONCE PRN PRN Reason: Consult order Senna (Sennosides 8.6 Mg Tablet) 17.2 mg PO BEDTIME PRN PRN Reason: Constipation Sodium Chloride (0.9 % Sodium Chloride Flush 3 Ml Syringe) 3 ml IVFLUSH QSHIFT [facility] Home Medications Medication Instructions Recorded Confirmed Last Taken Type atorvastatin 40 mg tablet 40 mg PO DAILY 06/14/21 10/17/22 08/05/22 History hydrocodone 10 mg-acetaminophen 1 tab PO Q4-6H PRN pain 06/14/21 10/17/22 03/23/22 History 325 mg tablet dapagliflozin 10 mg tablet 10 mg PO DAILY 03/23/22 10/17/22 03/23/22 History (Farxiga) bupropion HCl 150 mg 24 hr tablet, 1 tab PO DAILY 07/12/22 10/17/22 08/05/22 History extended release ipratropium 0.5 mg-albuterol 3 mg 1 amp inhalation 6XD PRN Shortness 07/12/22 10/17/22 Unknown History (2.5 mg base)/3 mL nebulization Of Breath Or Wheezing soln albuterol sulfate 90 mcg/actuation 2 puff inhalation Q6H PRN Dyspnea 08/07/22 10/17/22 Unknown History aerosol inhaler carvedilol 6.25 mg tablet 1 tab PO BID 08/07/22 10/17/22 08/05/22 History losartan 50 mg tablet 0.5 tab PO DAILY 08/07/22 10/17/22 08/05/22 History metolazone 2.5 mg tablet 1 tab PO DAILY 08/07/22 10/17/22 08/05/22 History potassium chloride 20 mEq/15 mL 15 ml PO BID 08/07/22 10/17/22 Unknown History oral liquid methocarbamol 500 mg tablet 1 tab PO BID 10/17/22 10/17/22 Unknown History Physical Exam Vital Signs and Narrative: Vital Signs: Last Vital Signs Temp 97.6 F 10/17/22 09:53 Pulse 92 10/17/22 10:23 Resp 24 H 10/17/22 10:23 BP 119/84 10/17/22 10:23 Pulse Ox 96 10/17/22 10:23 O2 Del Method 10/17/22 10:23 BMI result Body Mass Index 27.3 Constitutional - Awake and Alert, No apparent distress Eyes - PERRLA, EOMI Cardiovascular - S1S2, RRR, 4+ pitting edema BLE to the thighs Respiratory - Normal lung expansion, Normal respiratory effort, No respiratory distress, diminished lung sounds with distant scattered wheezes and diffuse crackles Gastrointestinal - NT / ND; +BS; No rebound or guarding - No CVA tenderness Extremities - no calf tenderness bilaterally, no swelling Skin - Warm/Dry Neurological - Alert & oriented x3, CN II-XII in tact, 5/5 strength BUE and BLE Psychological - Appropriate affect Results Labs CBC and Chem 7: 10/17/22 08:42 10/17/22 08:42 Labs: Laboratory Results - last 24 hr 10/17/22 10/17/22 10/17/22 08:42 08:42 08:42 MCV 93.9 MCH 30.2 MCHC 32.2 RDW 19.3 H Plt Count 244 MPV 10.4 Immature Gran % (Auto) 0.3 Neut % (Auto) 79.2 H Lymph % (Auto) 11.2 L [place] % (Auto) 7.1 Eos % (Auto) 1.4 Baso % (Auto) 0.8 Lymph # (Auto) 0.9 L [place] # (Auto) 0.6 Eos # (Auto) 0.1 Baso # (Auto) 0.1 Abs Immat Gran (auto) 0.02 Absolute Neuts (auto) 6.2 Absolute Nucleated RBC 0.000 Nucleated RBC % (auto) 0.0 Anion Gap 16 Estim Creat Clear Calc 60.3 Estimated GFR 54 Random Glucose 173 H Calcium 9.5 Magnesium 2.1 Total Bilirubin 3.1 H AST 34 ALT 20 Alkaline Phosphatase 110 Troponin I High Sens B-Natriuretic Peptide 2578 H Total Protein 7.3 Albumin 3.5 COVID-19 ([facility]) COVID-19 Clin Com Influenza Type A (PREM) Influenza Type B (PREM) Influenza A & B Note 10/17/22 10/17/22 10/17/22 08:42 11:39 11:39 MCV MCH MCHC RDW Plt Count MPV Immature Gran % (Auto) Neut % (Auto) Lymph % (Auto) [place] % (Auto) Eos % (Auto) Baso % (Auto) Lymph # (Auto) [place] # (Auto) Eos # (Auto) Baso # (Auto) Abs Immat Gran (auto) Absolute Neuts (auto) Absolute Nucleated RBC Nucleated RBC % (auto) Anion Gap Estim Creat Clear Calc Estimated GFR Random Glucose Calcium Magnesium Total Bilirubin AST ALT Alkaline Phosphatase Troponin I High Sens 16.7 B-Natriuretic Peptide Total Protein Albumin COVID-19 ([facility]) Positive A COVID-19 Clin Com See Note Influenza Type A (PREM) Negative Influenza Type B (PREM) Negative Influenza A & B Note See Note Imaging Radiologist's Impressions: Impressions Chest X-Ray 10/17/22 10:30 IMPRESSION: No acute cardiopulmonary process. Assessment and Plan (1) Anasarca: Status: Acute (2) CHF exacerbation: Status: Acute (3) COVID-19: Status: Acute Plan 52-year-old male with history of heart failure with reduced ejection fraction last echocardiogram showing EF 15-20%, nonischemic cardiomyopathy, history CVA, chronic low back pain, COPD, hypertension, and SVT with ICD and cardiac pacer in place, history of VFib, who is a current half pack per day cigarette smoker admitted to the hospital for acute CHF and COPD exacerbation with anasarca. # acute CHF exacerbation with baseline HRrEF -last echo 05/2021 showing moderately dilated left ventricle with severe LV systolic dysfunction with EF 20-25% with at least grade 2 diastolic dysfunction, moderately dilated left atrium, no pericardial effusion -CXR negative for effusion, however 4+ pitting edema of the bilateral lower extremities to the thighs -BNP 04/19/2078 -given Lasix 60 mg IV in the ED. Continue 40 mg Lasix b.i.d. -cardiac diet -strict I&O -daily weights -cardiology input appreciated -updated echocardiogram -admit to telemetry -follow BNP and BMP # anasarca -secondary to CHF exacerbation most likely -urine electrolytes pending, urinalysis pending -IV diuresis as above -?nephrotic syndrome, hx proteinuria # acute COPD exacerbation likely secondary to COVID-19 -IV Solu-Medrol 60 mg b.i.d. -DuoNebs q.4h while awake -CXR negative for pneumonia -no indication for ABX -no hypoxia # COVID-19 -initial diagnosis 10/19-no indication for IV antivirals or Decadron. On Solu- Medrol -droplet/contact precautions -symptomatic treatment # hyperbilirubinemia -likely secondary to acute CHF -follow CMP # hypertension - stable, continue home meds # diabetes - hold oral antihyperglycemics - low-dose sliding scale insulin - diabetic diet # atrial fibrillation-rate controlled -continue Eliquis for anticoagulation -continue carvedilol DVT prophylaxis-Eliquis Full code Patient requires inpatient stay of at least 2 midnights due to acute CHF exace rbation with anasarca requiring IV diuresis and close monitoring of fluids for cardiopulmonary decompensation Quality Stroke Does the patient have a stroke diagnosis?: No VTE Prior VTE?: No VTE Risk Level:: Medical - moderate - high VTE Device Contraindication: Treatment Not Indicated VTE Drug Contraindication: N/A - Med Ordered
[2022-10-17] MEDS: Albuterol/Iprat 2.5/0.5MG 3 ML AMPUL.NEB INHALE ×2 (16:37→19:32)
[2022-10-17] MEDS: methylPREDNISolone Sod Succ 125 MG/2 ML VIAL 60 MG IVPUSH (17:06)
[2022-10-17] MEDS: Amiodarone HCL 200 MG TABLET PO (17:07)
[2022-10-17] MEDS: 0.9 % Sodium Chloride Flush 3 ML SYRINGE IVFLUSH (17:10)
[2022-10-17 17:50] LABS: Creatinine Urine 87.91 mg/dL; Potassium Urine Random 23.9 mmol/L
[2022-10-17 18:24] LABS: Appearance Urine Clear; Color Urine DK YELLOW; Glucose Urine UA Negative (Negative); Leukocyte Esterase Urine Trace (Negative); Nitrite Urine Negative (Negative); Specific Gravity - Urine 1.015 (1.005-1.025); UMIC TRIGGER UA YES; Urine Blood Negative (Negative); Urine Ketones Negative (Negative); Urine Protein 30 (1+) mg/dL (Neg-Trace)
[2022-10-17] MEDS: Apixaban 5 MG TABLET PO (18:27)
[2022-10-17 18:29] LABS: Glucose, Whole Blood 141 mg/dL (60-115)
[2022-10-17 18:58] LABS: Bacteria Urine None Seen (None Seen); Hyaline Casts Urine 0-2 /LPF (0-2); RBC Urine 0-2 /HPF (0-2); Squamous Epithelial Cell Urine 0-2 /HPF (0-2)
[2022-10-17 20:52] LABS: Glucose, Whole Blood 178 mg/dL (60-115)
[2022-10-17] MEDS: carvediloL 6.25 MG TABLET PO (20:55)
[2022-10-17] MEDS: Insulin Lispro 100 UNIT/ML 3 ML VIAL SUBCUT (20:56)
[2022-10-17] MEDS: Cyclobenzaprine HCl 10 MG TABLET PO (20:56)
--- NOTE | 2022-10-17 22:21 | PC.NURSE ---
patient SPO2 dipping into the 70s/80s. Resp called. placed patient on 12L oxymask with improvement. patient is covid positive and has a HX of TYRONE. will continue to monitor.
[2022-10-18] VITALS (10 sets, daily range): BP systolic 95–121; BP diastolic 62–85; PULSE 86–102; RESP 13–21; TEMP 35.7–36.9; O2SAT 90–100; BMI 36.8
[2022-10-18] MEDS: methylPREDNISolone Sod Succ 125 MG/2 ML VIAL 60 MG IVPUSH (04:59)
[2022-10-18] MEDS: Apixaban 5 MG TABLET PO ×2 (04:59→18:15)
--- NOTE | 2022-10-18 05:17 | PC.NURSE ---
patient awake, alert. oriented x4. coughing frequently. no production. reports back pain. given PRN pain medication.
--- NOTE | 2022-10-18 07:00 | CA_ITS ---
Transthoracic Echocardiogram Patient (Last, First, Middle): Stephen Sheth D Gender: Male Date of : 1970 Age: 52 Procedure Date: 10/18/2022 Procedure Type: Transthoracic Echocardiogram Location: ER Height: 172.72 cm Weight: 81.65 kg BSA: 1.95 m2 Heart Rate: 88 bpm BP: 107 / 72 mmHg Senior Recruitment Consultant: EDWARD Barahona MD: Cassandra PEREZ Press Shop Supervisor: Bud Collado MD Symptoms: chf exacerbation Study Quality: Fair/Contrast ECG Rhythm: Sinus Conclusions: - 1. Severely dilated left ventricle with significantly reduced LV ejection fraction of less than 10% with at least grade 2 diastolic dysfunction 2. At least moderate left atrial enlargement 3. At least moderate mitral regurgitation 4. Severely reduced RV systolic function 5. Significantly elevated right atrial pressures 6. No gross pericardial effusion Findings Procedure Information Contrast agent, definity, is being given per protocol without apparent complications. Left Ventricle Severely increased left ventricular cavity size. There is normal left ventricular wall thickness. The left ventricular systolic function is severely decreased. The visually estimated ejection fraction is <10%. Spectral Doppler is indicative of a pseudonormal filling pattern. E/E prime ratio is >15, consistent with elevated filling pressures. Evidence suggests grade II (moderate) diastolic dysfunction. Right Ventricle Mildly increased right ventricular cavity size. There is severely decreased right ventricular systolic function. There is an ICD wire seen in the right ventricle. Atria The left atrium is moderately dilated. Interatrial shunt cannot be excluded. The right atrium is mildly dilated. Aortic Valve The aortic valve structure and function is likely normal. There is no aortic valve stenosis. There is no aortic valve regurgitation. Mitral Valve There is mild anterior and posterior mitral leaflet thickening. There is moderate mitral valve regurgitation. There is no mitral valve stenosis. Pulmonic Valve The pulmonic valve is likely normal. There is mild pulmonic valve regurgitation. Tricuspid Valve Normal tricuspid valve structure. There is moderate tricuspid valve regurgitation. The right ventricular systolic pressure is normal. Significantly elevated right atrial pressure. Great Vessels All visible segments of the aorta are normal in size. The pulmonary artery was not well visualized. Venous The inferior vena cava is severely dilated and collapses less than 50% with inspiration. Pericardium/Pleural There is no evidence of pericardial effusion. Prior Study Comparison Changes noted compared to prior study dated: 06/14/2021. LV systolic function is further reduced. Mitral regurgitation is moderate Measurements 2D Linear Measurements IVSd: 0.83 0.6-0.9/0.6-1.0 cm LVIDd: 7.28 3.9-5.3/4.2-5.9 cm LVIDd Index: 3.73 2.4-3.2/2.2-3.1 cm/m2 LVIDs: 6.50 2.0-3.6 cm LVPWd: 1.01 0.7-1.1 cm LA Diam: 5.20 2.7-3.8/3.0-4.0 cm LAIDs Index: 2.67 1.5-2.3 cm/m2 LV Mass: 386.33 67-162/88-224 g LV Mass Index: 198.12 43-95/49-115 g/m2 LVOT Diam: 2.30 3.0+(-)1.3 cm 2D Systolic Function EF 4C: 6.64 >55% EF 2C: 12.90 >55% EF BiP: 9.65 >55% Mitral Valve MV Pk E: 0.76 MV PK A: 0.54 MV Decel Time: 106.00 E/A: 1.40 E'Lateral: 5.44 E'Medial: 4.03 E/E' Med: 18.90 E/E' Lat: 14.00 PHT: 31.00 MVA PHT: 7.10 Decel Gem: 7.16 MR Vol - PW Dopp: 7.10 MR VTI: 1.42 MR ERO: 5.00 MR Alias Salvador: 0.38 MR RAD: 0.30 Aortic Valve AoV Pk Salvador: 0.85 AoV Mn Salvador: 0.60 AoV VTI: 0.13 AoV Pk Grad: 3.00 Aov Mn Grad: 2.00 SAULO Cont.VTI: 3.56 LVOT LVOT Pk Salvador: 0.74 LVOT Mn Salvador: 0.49 LVOT VTI: 0.11 LVOT Pk Grad: 2.00 LVOT Mn Grad: 1.00 LVOT Diam: 2.30 LVOT Area: 4.15 Diastolic Function MV Pk E: 0.76 MV Pk A: 0.54 E/A: 1.40 E'Medial: 4.03 E/E' Med: 18.90 E' Laterial: 5.44 E/E' Lat: 14.00 Right Ventricle TAPSE (mm): 9.57 TVS' Salvador: 5.76 Tricuspid Valve TR Pk Salvador: 1.66 TR Pk Grad: 11.00 RA Press: 15.00 RVSP: 26.00 Great Vessels Aorta Sinus of Valsalva: 3.70 2.0-3.5 cm Ao Asc: 3.50 2.1-3.4 cm Pulmonary Valve PV Pk Salvador: 0.59 Peak PV Grad: 1.00 Updated in Other Vendor System with Status of Final Bud Collado MD electronically signed on 10/18/2022 4:03:07 PM with status of Final
[2022-10-18 07:23] LABS: Glucose, Whole Blood 143 mg/dL (60-115)
[2022-10-18 07:27] LABS: B Type Natriuretic Peptide 3028 pg/mL (<100)
[2022-10-18 08:12] LABS: Alanine Aminotransferase 15 U/L (0-40); Albumin Level 3.1 g/dL (3.5-5.0); Alkaline Phosphatase 98 U/L (39-117); Anion Gap 17 (12-20); Aspartate Amino Transferase 27 U/L (5-37); Bilirubin Total 2.8 mg/dL (0.0-1.0); Blood Urea Nitrogen 21 mg/dL (9-16); Calcium 9.1 mg/dL (8.4-10.2); Carbon Dioxide 30 mmol/L (22-29); Chloride 92 mmol/L (96-108); Creatinine Clr Calc Pharmacy 63.5; Estimated Glomerular Filt Rate 58; Glucose Random 124 mg/dL (60-115); Potassium 3.5 mmol/L (3.3-5.1); Sodium 135 mmol/L (135-145); Total Protein 6.5 g/dL (6.5-8.0)
[2022-10-18] MEDS: Albuterol/Iprat 2.5/0.5MG 3 ML AMPUL.NEB INHALE ×3 (08:39→21:34)
--- NOTE | 2022-10-18 11:18 | P.CONCA_ITS ---
History of Present Illness History of Present Illness Date of Service: 10/18/22 Requesting physician: Benjamin Mckeon Consult reason: congestive heart failure Chief complaint: CHF exacerbation, anasarca Narrative: I was consulted to see Stephen in cardiology consultation today for decompensated heart failure. Patient present hospital with progressive shortness of breath, leg edema. He says that he has over them with his medical condition not sure if he is taking all his medications regularly. He came to emergency room about a week ago but because of long weight signed himself out. He then came back today to the hospital with worsening shortness of breath, leg edema and inability to urinate. He has been given IV Lasix with only very tepid diuretic response. Patient still is short of breath. Appears grossly volume overloaded. He is not sure as to the medicines he is taking at home currently. He has prior extensive history of severe LV systolic dysfunction, nonischemic with LVEF of 15 20% by last echocardiogram, ventricular fibrillation on amiodarone, status post ICD placement for primary prevention with mass attest his ICD lead he is suggestive thrombus on oral anticoagulation therapy. As per the medication list he appears to be an appropriate medication, only issue is compliance with medications. He said he does not have high salt diet. Denies any palpitations, ICD discharge. No chest pain. Review of Systems Constitutional: Constitutional: Reports no additional constitutional complaints Eyes: Eyes: Reports no additional eye complaints Cardiovascular: Cardiovascular: Denies chest pain, Reports edema, Reports leg edema, Denies palpitations, Reports dyspnea on exertion and Reports orthopnea Respiratory: Respiratory: Reports no additional respiratory complaints and Reports dyspnea on exertion Gastrointestinal: Gastrointestinal: Reports no additional gastrointestinal complaints Genitourinary: Genitourinary: Reports no additional male genitourinary complaints Musculoskeletal: Musculoskeletal: Reports no additional musculoskeletal complaints Integumentary/Breasts: Skin/Breast: Reports system reviewed and no additional complaints, except as docu Neurologic: Reports system reviewed and no additional complaints, except as documented Psychiatric: Psychiatric: Reports no additional psychiatric complaints Endocrine: Endocrine: Reports no additional endocrine complaints and Denies palpitations Hematologic/Lymphatic: Hematologic/Lymphatic: Reports no additional hematologic/lymphatic complaints Allergic/Immunologic: Allergic/Immunologic: Reports no additional allergic/i mmunologic complaints PMFSH Past Medical History Medical History Acute on chronic systolic heart failure Artificial cardiac pacemaker Back injuries Cardiomyopathy Chronic combined systolic and diastolic CHF, NYHA class 3 COPD (chronic obstructive pulmonary disease) Current use of terminal worker anticoagulation CVA (cerebral vascular accident) History of COPD HTN (hypertension) Hypertension ICD (implantable cardioverter-defibrillator) in place NSVT (nonsustained ventricular tachycardia) Family History Family History Father Prostate cancer Mother No problems noted. Surgical History Surgical History Hx of cardiac cath (~08/2015) Social History Social History Household Members: None Housing: House Do you presently have visiting nurse or other home services: No Unable to assess alcohol history related to: Unknown Alcohol intake: never Patient Tobacco Use Status: Current everyday Tobacco user Tobacco use type: Cigarette Cigarettes Per Day: 5 Advance Directives: No Advance Directives Information Provided: Yes service: No Current occupational status: disabled Meds Allergies Allergy/AdvReac Type Severity Reaction Status Date / Time sacubitril [From Entresto] AdvReac Rash Verified 08/06/22 21:54 valsartan [From Entresto] AdvReac Rash Verified 03/05/22 13:12 Active Medications: Current Medications Acetaminophen (Acetaminophen 325 Mg Tablet) 650 mg PO Q6H PRN PRN Reason: Pain, Mild (Pain Scale 1-3) Hydrocodone Bitart/Acetaminophen (Hydrocodone Bit/Acetam 10/325 Tablet) 1 tab PO RQ4H PRN PRN Reason: Pain, Severe (Pain Scale 7-10) Last Admin: 10/18/22 05:11 Dose: 1 tab Albuterol/Ipratropium (Albuterol/Iprat 2.5/0.5mg 3 Ml Ampul.Neb) 3 ml INHALE 6XD PRN PRN Reason: Shortness Of Breath Or Wheezing Albuterol/Ipratropium (Albuterol/Iprat 2.5/0.5mg 3 Ml Ampul.Neb) 3 ml INHALE RQ4H WHILE AWAKE [facility] Last Admin: 10/18/22 08:39 Dose: 3 ml Amiodarone HCl (Amiodarone Hcl 200 Mg Tablet) 200 mg PO DAILY [facility] Last Admin: 10/17/22 17:07 Dose: 200 mg Apixaban (Apixaban 5 Mg Tablet) 5 mg PO BID@0600,1800 [facility] [place] Last Admin: 10/18/22 04:59 Dose: 5 mg Atorvastatin Calcium (Atorvastatin Calcium 40 Mg Tablet) 40 mg PO DAILY [facility] [place] Bupropion HCl (Bupropion Hcl Xl 150 Mg Tab.Er.24h) 150 mg PO DAILY [facility] [place] Carvedilol (Carvedilol 6.25 Mg Tablet) 6.25 mg PO BID [facility]; Protocol Last Admin: 10/17/22 20:55 Dose: 6.25 mg Cyclobenzaprine HCl (Cyclobenzaprine Hcl 10 Mg Tablet) 10 mg PO BID [facility] [place] Last Admin: 10/17/22 20:56 Dose: 10 mg Dextrose (Dextrose 50 % 25 Gm/50 Ml Syringe) 25 gm IVPUSH Q15M PRN; Protocol PRN Reason: per Hypoglycemia Standing Ord. Empagliflozin (Empagliflozin 10 Mg Tablet) 10 mg PO DAILY [facility] Furosemide (Furosemide 40 Mg/4 Ml Vial) 40 mg IVPUSH BID [facility]; Protocol Glucose (Glucose Gel 15 Gm Gel..Gram.) 15 gm PO Q15M PRN; Protocol PRN Reason: per Hypoglycemia Standing Ord. Insulin Human Lispro (Insulin Lispro 100 Unit/Ml 3 Ml Vial) 0 unit SUBCUT QIDACHS [facility] [place]; Protocol Last Admin: 10/18/22 08:42 Dose: Not Given Losartan Potassium (Losartan Potassium 25 Mg Tablet) 25 mg PO DAILY [facility] [place]; Protocol Methylprednisolone Sodium Succinate (Methylprednisolone Sod Succ 125 Mg/2 Ml Vial) 60 mg IVPUSH Q12H [facility] [place] Last Admin: 10/18/22 04:59 Dose: 60 mg Ondansetron HCl (Ondansetron Hcl 4 Mg/2 Ml Vial) 4 mg IVPUSH Q8H PRN PRN Reason: Nausea and Vomiting Pharmacy Consult (Consult Rx Perform Med Rec) 1 each MISCELLANE ONCE PRN PRN Reason: Consult order Potassium Chloride (Potassium Chloride Packet 20 Meq Packet) 20 meq PO BID [facility] Senna (Sennosides 8.6 Mg Tablet) 17.2 mg PO BEDTIME PRN PRN Reason: Constipation Sodium Chloride (0.9 % Sodium Chloride Flush 3 Ml Syringe) 3 ml IVFLUSH QSHIFT [facility] Last Admin: 10/18/22 09:19 Dose: Not Given Spironolactone (Spironolactone 25 Mg Tablet) 50 mg PO DAILY [facility]; Protocol Home Medications Medication Instructions Recorded Confirmed Last Taken Type atorvastatin 40 mg tablet 40 mg PO DAILY 06/14/21 10/17/22 08/05/22 History hydrocodone 10 mg-acetaminophen 1 tab PO Q4-6H PRN pain 06/14/21 10/17/22 03/23/22 History 325 mg tablet dapagliflozin 10 mg tablet 10 mg PO DAILY 03/23/22 10/17/22 03/23/22 History (Farxiga) bupropion HCl 150 mg 24 hr tablet, 1 tab PO DAILY 07/12/22 10/17/22 08/05/22 History extended release ipratropium 0.5 mg-albuterol 3 mg 1 amp inhalation 6XD PRN Shortness 07/12/22 10/17/22 Unknown History (2.5 mg base)/3 mL nebulization Of Breath Or Wheezing soln albuterol sulfate 90 mcg/actuation 2 puff inhalation Q6H PRN Dyspnea 08/07/22 10/17/22 Unknown History aerosol inhaler carvedilol 6.25 mg tablet 1 tab PO BID 08/07/22 10/17/22 08/05/22 History losartan 50 mg tablet 0.5 tab PO DAILY 08/07/22 10/17/22 08/05/22 History metolazone 2.5 mg tablet 1 tab PO DAILY 08/07/22 10/17/22 08/05/22 History potassium chloride 20 mEq/15 mL 15 ml PO BID 08/07/22 10/17/22 Unknown History oral liquid methocarbamol 500 mg tablet 1 tab PO BID 10/17/22 10/17/22 Unknown History Physical Exam Vital Signs: Vital Signs: Last Vital Signs Temp 96.9 F 10/18/22 08:00 Pulse 100 10/18/22 08:39 Resp 20 10/18/22 08:39 BP 119/83 10/18/22 08:00 Pulse Ox 95 10/18/22 08:00 O2 Del Method 10/18/22 08:00 O2 Flow Rate 2 10/18/22 08:00 BMI result Body Mass Index 27.3 Const: General: cooperative, alert, awake and in distress moderate and respiratory Nutritional Appearance: overweight Orientation/consciousness: patient oriented x3 HEENT: Head: Yes normocephalic and Yes atraumatic Neck: Neck: Yes trachea midline, Yes supple and Yes JVD Resp: Effort & Inspection: normal respiratory effort Auscultation: rales bilateral 1/[address] up Cardio: Palpation: abnormal PMI displaced PMI Rate: regular rate Rhythm: regular rhythm Heart sounds: S1 normal heart sound present, S2 normal heart sound present, no click, Gallop heart sound present and no murmurs GI: Inspection: Yes distended Auscultation: normal bowel sounds Skin: General skin exam: no rashes or lesions noted Neuro: General: patient oriented x3 and no focal motor deficits Extrem: General: No clubbing, No cyanosis and Yes edema Psych: Appearance: grossly normal Objective Labs and Meds Result diagrams: 10/17/22 08:42 10/18/22 05:59 Lab results: Laboratory Results - last 24 hr 10/17/22 10/17/22 10/17/22 11:39 11:39 17:15 Sodium Potassium Chloride Carbon Dioxide Anion Gap BUN Creatinine Estim Creat Clear Calc Estimated GFR POC Glucose Random Glucose Calcium Total Bilirubin AST ALT Alkaline Phosphatase B-Natriuretic Peptide Total Protein Albumin Urine Color Urine Appearance Urine pH Ur Specific [place] Urine Protein Urine Glucose (UA) Urine Ketones Urine Blood Urine Nitrite Ur Leukocyte Esterase Urine RBC Urine WBC Ur Squamous Epith Cells Urine Bacteria Hyaline Casts Ur Random Sodium 34.0 Ur Random Potassium 23.9 Urine Creatinine 87.91 COVID-19 ([facility]) Positive A COVID-19 Clin Com See Note Influenza Type A (PREM) Negative Influenza Type B (PREM) Negative Influenza A & B Note See Note 10/17/22 10/17/22 10/17/22 17:15 18:25 20:49 Sodium Potassium Chloride Carbon Dioxide Anion Gap BUN Creatinine Estim Creat Clear Calc Estimated GFR POC Glucose 141 H 178 H Random Glucose Calcium Total Bilirubin AST ALT Alkaline Phosphatase B-Natriuretic Peptide Total Protein Albumin Urine Color DK YELLOW Urine Appearance Clear Urine pH 6.0 Ur Specific [place] 1.015 Urine Protein 30 (1+) H Urine Glucose (UA) Negative Urine Ketones Negative Urine Blood Negative Urine Nitrite Negative Ur Leukocyte Esterase Trace H Urine RBC 0-2 Urine WBC 6-10 Ur Squamous Epith Cells 0-2 Urine Bacteria None Seen Hyaline Casts 0-2 Ur Random Sodium Ur Random Potassium Urine Creatinine COVID-19 ([facility]) COVID-19 Clin Com Influenza Type A (PREM) Influenza Type B (PREM) Influenza A & B Note 10/18/22 10/18/22 10/18/22 05:59 05:59 07:17 Sodium 135 Potassium 3.5 Chloride 92 L Carbon Dioxide 30 H Anion Gap 17 BUN 21 H Creatinine 1.30 Estim Creat Clear Calc 63.5 Estimated GFR 58 POC Glucose 143 H Random Glucose 124 H Calcium 9.1 Total Bilirubin 2.8 H AST 27 ALT 15 Alkaline Phosphatase 98 B-Natriuretic Peptide 3028 H Total Protein 6.5 Albumin 3.1 L Urine Color Urine Appearance Urine pH Ur Specific [place] Urine Protein Urine Glucose (UA) Urine Ketones Urine Blood Urine Nitrite Ur Leukocyte Esterase Urine RBC Urine WBC Ur Squamous Epith Cells Urine Bacteria Hyaline Casts Ur Random Sodium Ur Random Potassium Urine Creatinine COVID-19 ([facility]) COVID-19 Clin Com Influenza Type A (PREM) Influenza Type B (PREM) Influenza A & B Note Assessment and Plan (1) CHF exacerbation: Status: Acute Decompensated systolic heart failure in this middle-aged man with severe cardiomyopathy in the past, most likely related to noncompliance with medications as well as probably diet. Clinically appears grossly overloaded and in heart failure. Poor response to IV boluses. Start him on IV Bumex drip at 0.5 mg an hour. Strict intake and output chart needs to be pursued. Hold off on carvedilol therapy at this point time. Continue spironolactone, losartan and Jardiance therapy. Continue monitor his renal function electrolytes. Close full disclosure cardiac monitoring. Continue full oral anticoagulation with Eliquis for possible ICD thrombus. Echocardiogram to be pursued. Continue potassium supplementation. If continues to have poor response to IV diuresis is may require boosting with metolazone and/or inotropics support with dobutamine. Overall prognosis is guarded. Discussed with patient about compliance of medication to avoid recurrent hospitalization. Case management for assessment for home help should be pursued. Will follow with you Procedures Date of Service Date of Service: 10/18/22
[2022-10-18 11:59] LABS: Magnesium 2.1 mg/dL (1.6-2.6)
[2022-10-18] MEDS: Cyclobenzaprine HCl 10 MG TABLET PO ×2 (12:09→19:47)
[2022-10-18] MEDS: Amiodarone HCL 200 MG TABLET PO (12:10)
[2022-10-18] MEDS: Empagliflozin 10 MG TABLET PO (12:10)
[2022-10-18] MEDS: carvediloL 6.25 MG TABLET PO (12:10)
[2022-10-18] MEDS: Spironolactone 25 MG TABLET 50 MG PO (12:10)
[2022-10-18] MEDS: buPROPion HCl XL 150 MG TAB.ER.24H PO (12:10)
[2022-10-18] MEDS: Atorvastatin Calcium 40 MG TABLET PO (12:10)
[2022-10-18] MEDS: metOLazone 5 MG TABLET PO (12:11)
[2022-10-18] MEDS: methylPREDNISolone Sod Succ 125 MG/2 ML VIAL 40 MG IVPUSH ×2 (12:11→19:47)
[2022-10-18] MEDS: Potassium Chloride Packet 20 MEQ PACKET PO ×2 (12:11→19:48)
[2022-10-18] MEDS: Acetaminophen 325 MG TABLET 650 MG PO (12:24)
--- NOTE | 2022-10-18 12:49 | MHC.CM.PN ---
pt lives alone has no serveis he is indepdendent covid vax x 3 has own ride home he is covid positive
[2022-10-18 13:27] LABS: Glucose, Whole Blood 224 mg/dL (60-115)
[2022-10-18] MEDS: Insulin Lispro 100 UNIT/ML 3 ML VIAL SUBCUT ×2 (14:09→20:25)
[2022-10-18] MEDS: Bumetanide 25 MG in Container,Empty 0 ML IVCONT (14:14)
--- NOTE | 2022-10-18 16:18 | HO.PM.IMPN ---
Subjective Subjective Date of Service: 10/18/22 Interval History: the patient was seen and evaluated this morning Laying in bed, reports feeling edematous and short of breath Dyspnea at rest, worsening edema No reported other overnight events. Systemic review: No fever, chills or weakness No chest pain, palpitation Dyspnea at rest, requiring oxygen supplement No abdominal pain, nausea or vomiting No urinary symptoms No reported rash Physical Exam Vital Signs: Vital Signs: Last Vital Signs Temp 97.1 F 10/18/22 12:00 Pulse 94 10/18/22 12:00 Resp 13 10/18/22 12:00 BP 107/72 10/18/22 12:00 Pulse Ox 92 10/18/22 12:00 O2 Del Method 10/18/22 12:00 O2 Flow Rate 2 10/18/22 12:00 BMI result Body Mass Index 27.3 Const: Other: Constitutional : Awake, interactive, in mild respiratory distress Neck : Normal inspection, Supple Cardiovascular : RRR, elevated JVP, +2 bilateral lower extremity edema Respiratory : good bilateral air entry, basal fine crackles Gastrointestinal: soft, lax, Normal bowel sounds, Non tender Skin : Warm, Dry Neurological : Alert & oriented x3, No focal deficit Objective Data Active Medications Acetaminophen (Acetaminophen 325 Mg Tablet) 650 mg PO Q6H PRN PRN Reason: Pain, Mild (Pain Scale 1-3) Last Admin: 10/18/22 12:24 Dose: 650 mg Documented By: MYRIAM Hydrocodone Bitart/Acetaminophen (Hydrocodone Bit/Acetam 10/325 Tablet) 1 tab PO Q4H PRN PRN Reason: Pain, Severe (Pain Scale 7-10) Albuterol/Ipratropium (Albuterol/Iprat 2.5/0.5mg 3 Ml Ampul.Neb) 3 ml INHALE 6XD PRN PRN Reason: Shortness Of Breath Or Wheezing Albuterol/Ipratropium (Albuterol/Iprat 2.5/0.5mg 3 Ml Ampul.Neb) 3 ml INHALE RQ4H WHILE AWAKE [facility] Last Admin: 10/18/22 11:52 Dose: 3 ml Documented By: KATIA Amiodarone HCl (Amiodarone Hcl 200 Mg Tablet) 200 mg PO DAILY [facility] Last Admin: 10/18/22 12:10 Dose: 200 mg Documented By: MYRIAM Apixaban (Apixaban 5 Mg Tablet) 5 mg PO BID@0600,1800 [facility] Last Admin: 10/18/22 04:59 Dose: 5 mg Documented By: DAE Atorvastatin Calcium (Atorvastatin Calcium 40 Mg Tablet) 40 mg PO DAILY [facility] Last Admin: 10/18/22 12:10 Dose: 40 mg Documented By: MYRIAM Bupropion HCl (Bupropion Hcl Xl 150 Mg Tab.Er.24h) 150 mg PO DAILY [facility] Last Admin: 10/18/22 12:10 Dose: 150 mg Documented By: MYRIAM Carvedilol (Carvedilol 6.25 Mg Tablet) 6.25 mg PO BID [facility]; Protocol Last Admin: 10/18/22 12:10 Dose: 6.25 mg Documented By: MYRIAM Cyclobenzaprine HCl (Cyclobenzaprine Hcl 10 Mg Tablet) 10 mg PO BID [facility] Last Admin: 10/18/22 12:09 Dose: 10 mg Documented By: MYRIAM Dextrose (Dextrose 50 % 25 Gm/50 Ml Syringe) 25 gm IVPUSH Q15M PRN; Protocol PRN Reason: per Hypoglycemia Standing Ord. Empagliflozin (Empagliflozin 10 Mg Tablet) 10 mg PO DAILY [facility] Last Admin: 10/18/22 12:10 Dose: 10 mg Documented By: MYRIAM Glucose (Glucose Gel 15 Gm Gel..Gram.) 15 gm PO Q15M PRN; Protocol PRN Reason: per Hypoglycemia Standing Ord. Bumetanide 25 mg/ IV (Miscellaneous Supplies) 100 mls @ 2 mls/hr IVCONT .Q24H [facility] Last Admin: 10/18/22 14:14 Dose: 0.5 mg/hr, 2 mls/hr Documented By: MYRIAM Insulin Human Lispro (Insulin Lispro 100 Unit/Ml 3 Ml Vial) 0 unit SUBCUT QIDACHS [facility]; Protocol Last Admin: 10/18/22 14:09 Dose: 4 unit Documented By: MYRIAM Losartan Potassium (Losartan Potassium 25 Mg Tablet) 25 mg PO DAILY [facility]; Protocol Last Admin: 10/18/22 15:31 Dose: Not Given Documented By: MYRIAM Non-Admin Reason: Med Not Available Methylprednisolone Sodium Succinate (Methylprednisolone Sod Succ 125 Mg/2 Ml Vial) 40 mg IVPUSH Q12H [facility] Last Admin: 10/18/22 12:11 Dose: 40 mg Documented By: MYRIAM Ondansetron HCl (Ondansetron Hcl 4 Mg/2 Ml Vial) 4 mg IVPUSH Q8H PRN PRN Reason: Nausea and Vomiting Pharmacy Consult (Consult Rx Perform Med Rec) 1 each MISCELLANE ONCE PRN PRN Reason: Consult order Potassium Chloride (Potassium Chloride Packet 20 Meq Packet) 20 meq PO BID [facility] Last Admin: 10/18/22 12:11 Dose: 20 meq Documented By: MYRIAM Senna (Sennosides 8.6 Mg Tablet) 17.2 mg PO BEDTIME PRN PRN Reason: Constipation Sodium Chloride (0.9 % Sodium Chloride Flush 3 Ml Syringe) 3 ml IVFLUSH QSHIFT [facility] Last Admin: 10/18/22 09:19 Dose: Not Given Documented By: MYRIAM Non-Admin Reason: IV Running Spironolactone (Spironolactone 25 Mg Tablet) 50 mg PO DAILY [facility]; Protocol Last Admin: 10/18/22 12:10 Dose: 50 mg Documented By: MYRIAM Labs CBC & Chem 7: 10/17/22 08:42 10/18/22 05:59 Labs: Laboratory Results - last 24 hr 10/17/22 10/17/22 10/17/22 17:15 17:15 18:25 Anion Gap Estim Creat Clear Calc Estimated GFR POC Glucose 141 H Random Glucose Calcium Magnesium Total Bilirubin AST ALT Alkaline Phosphatase B-Natriuretic Peptide Total Protein Albumin Urine Color DK YELLOW Urine Appearance Clear Urine pH 6.0 Ur Specific [place] 1.015 Urine Protein 30 (1+) H Urine Glucose (UA) Negative Urine Ketones Negative Urine Blood Negative Urine Nitrite Negative Ur Leukocyte Esterase Trace H Urine RBC 0-2 Urine WBC 6-10 Ur Squamous Epith Cells 0-2 Urine Bacteria None Seen Hyaline Casts 0-2 Ur Random Sodium 34.0 Ur Random Potassium 23.9 Urine Creatinine 87.91 10/17/22 10/18/22 10/18/22 20:49 05:59 05:59 Anion Gap 17 Estim Creat Clear Calc 63.5 Estimated GFR 58 POC Glucose 178 H Random Glucose 124 H Calcium 9.1 Magnesium 2.1 Total Bilirubin 2.8 H AST 27 ALT 15 Alkaline Phosphatase 98 B-Natriuretic Peptide 3028 H Total Protein 6.5 Albumin 3.1 L Urine Color Urine Appearance Urine pH Ur Specific [place] Urine Protein Urine Glucose (UA) Urine Ketones Urine Blood Urine Nitrite Ur Leukocyte Esterase Urine RBC Urine WBC Ur Squamous Epith Cells Urine Bacteria Hyaline Casts Ur Random Sodium Ur Random Potassium Urine Creatinine 10/18/22 10/18/22 07:17 13:22 Anion Gap Estim Creat Clear Calc Estimated GFR POC Glucose 143 H 224 H Random Glucose Calcium Magnesium Total Bilirubin AST ALT Alkaline Phosphatase B-Natriuretic Peptide Total Protein Albumin Urine Color Urine Appearance Urine pH Ur Specific [place] Urine Protein Urine Glucose (UA) Urine Ketones Urine Blood Urine Nitrite Ur Leukocyte Esterase Urine RBC Urine WBC Ur Squamous Epith Cells Urine Bacteria Hyaline Casts Ur Random Sodium Ur Random Potassium Urine Creatinine Assessment and Plan (1) CHF exacerbation: Status: Acute (2) COVID-19: Status: Acute (3) Anasarca: Status: Acute (4) COPD exacerbation: Status: Acute Plan 52-year-old male with history of heart failure with reduced ejection fraction last echocardiogram showing EF 15-20%, nonischemic cardiomyopathy, history CVA, chronic low back pain, COPD, hypertension, and SVT with ICD and cardiac pacer in place, history of VFib, who is a current half pack per day cigarette smoker admitted to the hospital for acute CHF and COPD exacerbation with anasarca. # Anasarca 2/2 acute CHF exacerbation with baseline HRrEF Likely a result of worsening cardiac function To repeat echo Change from Lasix to IV Bumex drip If continues to have poor response to IV diuresis is may require boosting with metolazone and/or inotropics support with dobutamine.? Follow BNP strict I&O cardiology input appreciated Monitor on telemetry # acute COPD exacerbation likely secondary to COVID-19 IV Solu-Medrol 40 mg b.i.d. DuoNebs q.4h while awake CXR negative for pneumonia # COVID-19 initial diagnosis 10/19 no indication for IV antivirals or Decadron. On Solu-Medrol droplet/contact precautions # hyperbilirubinemia likely secondary to acute CHF follow CMP # hypertension stable, continue home meds # diabetes hold oral antihyperglycemics low-dose sliding scale insulin diabetic diet # atrial fibrillation-rate controlled continue Eliquis for anticoagulation continue carvedilol DVT prophylaxis Eliquis Patient requires inpatient stay of overnights due to acute CHF exacerbation with anasarca requiring IV diuresis and close monitoring of fluids for cardiopulmonary decompensation Quality Stroke Does the patient have a stroke diagnosis?: No VTE Prior VTE?: No VTE Risk Level:: Medical - moderate - high VTE Device Contraindication: Treatment Not Indicated VTE Drug Contraindication: N/A - Med Ordered
[2022-10-18] MEDS: 0.9 % Sodium Chloride Flush 3 ML SYRINGE IVFLUSH (19:48)
[2022-10-18 20:04] LABS: Glucose, Whole Blood 171 mg/dL (60-115)
[2022-10-18 20:04] LABS: Glucose, Whole Blood 177 mg/dL (60-115)
[2022-10-19] VITALS (7 sets, daily range): BP systolic 90–136; BP diastolic 62–97; PULSE 78–98; RESP 18–20; TEMP 36.2–37.2; O2SAT 94–98; BMI 33.8
[2022-10-19] MEDS: Apixaban 5 MG TABLET PO ×2 (04:31→17:09)
[2022-10-19] MEDS: Benzonatate 100 MG CAPSULE 200 MG PO ×2 (04:31→19:22)
[2022-10-19 07:27] LABS: Glucose, Whole Blood 162 mg/dL (60-115)
[2022-10-19] MEDS: Albuterol/Iprat 2.5/0.5MG 3 ML AMPUL.NEB INHALE ×2 (08:24→20:18)
[2022-10-19 08:28] LABS: B Type Natriuretic Peptide 2772 pg/mL (<100)
[2022-10-19] MEDS: Insulin Lispro 100 UNIT/ML 3 ML VIAL SUBCUT (08:34)
[2022-10-19] MEDS: 0.9 % Sodium Chloride Flush 3 ML SYRINGE IVFLUSH ×2 (08:35→19:25)
[2022-10-19] MEDS: Potassium Chloride Packet 20 MEQ PACKET PO (08:35)
[2022-10-19] MEDS: Spironolactone 25 MG TABLET 50 MG PO (08:35)
[2022-10-19] MEDS: buPROPion HCl XL 150 MG TAB.ER.24H PO (08:36)
[2022-10-19] MEDS: Atorvastatin Calcium 40 MG TABLET PO (08:36)
[2022-10-19] MEDS: Losartan Potassium 25 MG TABLET PO (08:36)
[2022-10-19] MEDS: Empagliflozin 10 MG TABLET PO (08:36)
[2022-10-19] MEDS: Amiodarone HCL 200 MG TABLET PO (08:36)
[2022-10-19] MEDS: Cyclobenzaprine HCl 10 MG TABLET PO ×2 (08:38→19:22)
[2022-10-19 08:56] LABS: Alanine Aminotransferase 16 U/L (0-40); Albumin Level 3.6 g/dL (3.5-5.0); Alkaline Phosphatase 102 U/L (39-117); Aspartate Amino Transferase 28 U/L (5-37); Bilirubin Total 2.4 mg/dL (0.0-1.0); Blood Urea Nitrogen 27 mg/dL (9-16); Calcium 9.8 mg/dL (8.4-10.2); Estimated Glomerular Filt Rate 49; Glucose Random 158 mg/dL (60-115); Total Protein 7.2 g/dL (6.5-8.0)
[2022-10-19 09:06] LABS: Anion Gap 20 (12-20); Carbon Dioxide 37 mmol/L (22-29); Chloride 84 mmol/L (96-108); Potassium 2.8 mmol/L (3.3-5.1); Sodium 138 mmol/L (135-145)
[2022-10-19 11:06] LABS: Glucose, Whole Blood 147 mg/dL (60-115)
--- NOTE | 2022-10-19 12:15 | HO.PM.IMPN ---
Subjective Subjective Date of Service: 10/19/22 Interval History: the patient was seen and evaluated this morning Laying in bed, reports feeling edematous and short of breath Dyspnea at rest, worsening edema No reported other overnight events. Systemic review: No fever, chills or weakness No chest pain, palpitation Dyspnea at rest, requiring oxygen supplement No abdominal pain, nausea or vomiting No urinary symptoms No reported rash Physical Exam Vital Signs: Vital Signs: Last Vital Signs Temp 97.1 F 10/19/22 08:00 Pulse 90 10/19/22 08:24 Resp 18 10/19/22 08:24 BP 117/70 10/19/22 08:00 Pulse Ox 98 10/19/22 08:00 O2 Del Method 10/19/22 08:00 O2 Flow Rate 2 10/19/22 08:00 BMI result Body Mass Index 36.8 Const: Other: Constitutional : Awake, interactive, in mild respiratory distress Neck : Normal inspection, Supple Cardiovascular : RRR, elevated JVP, +2 bilateral lower extremity edema Respiratory : good bilateral air entry, basal fine crackles Gastrointestinal: soft, lax, Normal bowel sounds, Non tender Skin : Warm, Dry Neurological : Alert & oriented x3, No focal deficit Objective Data Active Medications Acetaminophen (Acetaminophen 325 Mg Tablet) 650 mg PO Q6H PRN PRN Reason: Pain, Mild (Pain Scale 1-3) Last Admin: 10/18/22 12:24 Dose: 650 mg Documented By: MYRIAM Hydrocodone Bitart/Acetaminophen (Hydrocodone Bit/Acetam 10/325 Tablet) 1 tab PO Q4H PRN PRN Reason: Pain, Severe (Pain Scale 7-10) Last Admin: 10/19/22 02:27 Dose: 1 tab Documented By: DYLAN Albuterol/Ipratropium (Albuterol/Iprat 2.5/0.5mg 3 Ml Ampul.Neb) 3 ml INHALE 6XD PRN PRN Reason: Shortness Of Breath Or Wheezing Albuterol/Ipratropium (Albuterol/Iprat 2.5/0.5mg 3 Ml Ampul.Neb) 3 ml INHALE RQ4H WHILE AWAKE [facility] Last Admin: 10/19/22 12:14 Dose: Not Given Documented By: KATIA Non-Admin Reason: Patient Refused Amiodarone HCl (Amiodarone Hcl 200 Mg Tablet) 200 mg PO DAILY [facility] Last Admin: 10/19/22 08:36 Dose: 200 mg Documented By: JIM Apixaban (Apixaban 5 Mg Tablet) 5 mg PO BID@0600,1800 [facility] Last Admin: 10/19/22 04:31 Dose: 5 mg Documented By: DYLAN Atorvastatin Calcium (Atorvastatin Calcium 40 Mg Tablet) 40 mg PO DAILY [facility] Last Admin: 10/19/22 08:36 Dose: 40 mg Documented By: JIM Benzonatate (Benzonatate 100 Mg Capsule) 200 mg PO TID PRN PRN Reason: cough Last Admin: 10/19/22 04:31 Dose: 200 mg Documented By: ANTBILL Bupropion HCl (Bupropion Hcl Xl 150 Mg Tab.Er.24h) 150 mg PO DAILY [facility] Last Admin: 10/19/22 08:36 Dose: 150 mg Documented By: JIM Carvedilol (Carvedilol 6.25 Mg Tablet) 6.25 mg PO BID [facility]; Protocol Last Admin: 10/18/22 12:10 Dose: 6.25 mg Documented By: MYRIAM Cyclobenzaprine HCl (Cyclobenzaprine Hcl 10 Mg Tablet) 10 mg PO BID [facility] Last Admin: 10/19/22 08:38 Dose: 10 mg Documented By: JIM Dextrose (Dextrose 50 % 25 Gm/50 Ml Syringe) 25 gm IVPUSH Q15M PRN; Protocol PRN Reason: per Hypoglycemia Standing Ord. Empagliflozin (Empagliflozin 10 Mg Tablet) 10 mg PO DAILY [facility] Last Admin: 10/19/22 08:36 Dose: 10 mg Documented By: JIM Glucose (Glucose Gel 15 Gm Gel..Gram.) 15 gm PO Q15M PRN; Protocol PRN Reason: per Hypoglycemia Standing Ord. Bumetanide 25 mg/ IV (Miscellaneous Supplies) 100 mls @ 2 mls/hr IVCONT .Q24H [facility] Last Admin: 10/18/22 14:14 Dose: 0.5 mg/hr, 2 mls/hr Documented By: MYRIAM Insulin Human Lispro (Insulin Lispro 100 Unit/Ml 3 Ml Vial) 0 unit SUBCUT QIDACHS [facility]; Protocol Last Admin: 10/19/22 08:34 Dose: 2 unit Documented By: JIM Losartan Potassium (Losartan Potassium 25 Mg Tablet) 25 mg PO DAILY [facility]; Protocol Last Admin: 10/19/22 08:36 Dose: 25 mg Documented By: JIM Methylprednisolone Sodium Succinate (Methylprednisolone Sod Succ 125 Mg/2 Ml Vial) 40 mg IVPUSH Q12H [facility] Last Admin: 10/18/22 19:47 Dose: 40 mg Documented By: ANTOIC Ondansetron HCl (Ondansetron Hcl 4 Mg/2 Ml Vial) 4 mg IVPUSH Q8H PRN PRN Reason: Nausea and Vomiting Pharmacy Consult (Consult Rx Perform Med Rec) 1 each MISCELLANE ONCE PRN PRN Reason: Consult order Potassium Chloride (Potassium Chloride Packet 20 Meq Packet) 20 meq PO BID [facility] Last Admin: 10/19/22 08:35 Dose: 20 meq Documented By: JIM Potassium Chloride (Potassium Chloride Packet 20 Meq Packet) 40 meq PO Q2H [facility] Stop: 10/19/22 13:01 Senna (Sennosides 8.6 Mg Tablet) 17.2 mg PO BEDTIME PRN PRN Reason: Constipation Sodium Chloride (0.9 % Sodium Chloride Flush 3 Ml Syringe) 3 ml IVFLUSH QSHIFT [facility] Last Admin: 10/19/22 08:35 Dose: 3 ml Documented By: JIM Spironolactone (Spironolactone 25 Mg Tablet) 50 mg PO DAILY [facility]; Protocol Last Admin: 10/19/22 08:35 Dose: 50 mg Documented By: JIM Labs CBC & Chem 7: 10/17/22 08:42 10/19/22 07:19 Labs: Laboratory Results - last 24 hr 10/18/22 10/18/22 10/18/22 13:22 17:34 19:53 Anion Gap Estim Creat Clear Calc Estimated GFR POC Glucose 224 H 171 H 177 H Random Glucose Calcium Total Bilirubin AST ALT Alkaline Phosphatase B-Natriuretic Peptide Total Protein Albumin 10/19/22 10/19/22 10/19/22 07:19 07:19 07:23 Anion Gap 20 Estim Creat Clear Calc 68.0 Estimated GFR 49 POC Glucose 162 H Random Glucose 158 H Calcium 9.8 D Total Bilirubin 2.4 H AST 28 ALT 16 Alkaline Phosphatase 102 B-Natriuretic Peptide 2772 H Total Protein 7.2 Albumin 3.6 10/19/22 11:00 Anion Gap Estim Creat Clear Calc Estimated GFR POC Glucose 147 H Random Glucose Calcium Total Bilirubin AST ALT Alkaline Phosphatase B-Natriuretic Peptide Total Protein Albumin Assessment and Plan (1) CHF exacerbation: Status: Acute (2) Hypokalemia: Status: Acute (3) NSVT (nonsustained ventricular tachycardia): Status: Acute (4) NICM (nonischemic cardiomyopathy): Status: Acute Plan 52-year-old male with history of heart failure with reduced ejection fraction last echocardiogram showing EF 15-20%, nonischemic cardiomyopathy, history CVA, chronic low back pain, COPD, hypertension, and SVT with ICD and cardiac pacer in place, history of VFib, who is a current half pack per day cigarette smoker admitted to the hospital for acute CHF and COPD exacerbation with anasarca. # Anasarca 2/2 acute CHF exacerbation with baseline HRrEF Likely a result of worsening cardiac function Improving Repeated echo showing EF less than 10% with diastolic dysfunction, severely reduced systolic function Continue IV Bumex drip Follow BNP strict I&O cardiology input appreciated # acute COPD exacerbation likely secondary to COVID-19 CXR negative for pneumonia Changed to p.o. prednisone daily DuoNebs q.4h while awake # NSVT Had 7 beats run with associated dizziness Continue amiodarone Correct electrolytes, to give potassium and magnesium supplement Follow BMP and magnesium level # Hypokalemia Potassium 2.8 To give IV and p.o. replacement Repeat BMP this afternoon # COVID-19 initial diagnosis 10/19 no indication for IV antivirals or Decadron. On Solu-Medrol droplet/contact precautions # hyperbilirubinemia Stable, likely secondary to acute CHF follow CMP # hypertension stable, continue home meds # diabetes hold oral antihyperglycemics low-dose sliding scale insulin diabetic diet # atrial fibrillation-rate controlled continue Eliquis for anticoagulation On hold carvedilol DVT prophylaxis Eliquis Patient requires inpatient stay of overnights due to acute CHF exacerbation with anasarca requiring IV diuresis and close monitoring of fluids for cardiopulmonary decompensation Quality Stroke Does the patient have a stroke diagnosis?: No VTE Prior VTE?: No VTE Risk Level:: Medical - moderate - high VTE Device Contraindication: Treatment Not Indicated VTE Drug Contraindication: N/A - Med Ordered
--- NOTE | 2022-10-19 12:41 | PM.PNCARD ---
Subjective Subjective Date of Service: 10/19/22 Principal diagnosis: Decompensated CHF Interval history: Patient diuresing well. Her says that continues to have shortness of breath and choking sensation when he is lying down. Still has leg edema. Not accurately charted. Review of Systems Constitutional: Reports no additional constitutional complaints Cardiovascular: Denies chest pain, Reports leg edema, Denies Loss of Consciousness, Denies palpitations, Reports dyspnea and Reports orthopnea Respiratory: Reports dyspnea Gastrointestinal: Reports no additional gastrointestinal complaints Genitourinary: Reports no additional male genitourinary complaints Musculoskeletal: Reports no additional musculoskeletal complaints Reports system reviewed and no additional complaints, except as documented Endocrine: Denies palpitations Physical Exam Vital Signs: Last Vital Signs Temp 98.0 F 10/19/22 12:00 Pulse 98 10/19/22 12:00 Resp 20 10/19/22 12:00 BP 114/71 10/19/22 12:00 Pulse Ox 94 10/19/22 12:00 O2 Del Method 10/19/22 12:00 O2 Flow Rate 2 10/19/22 08:00 BMI result Body Mass Index 36.8 Const General: cooperative, alert, awake and in distress mild and respiratory Nutritional Appearance: obese Orientation/consciousness: patient oriented x3 Neck Neck: Yes trachea midline, Yes supple and Yes JVD Resp Effort & Inspection: decreased respiratory effort Auscultation: no rales and breath sounds absent bilateral Cardio Jugular venous distension: JVD Palpation: abnormal PMI displaced PMI Rate: regular rate Rhythm: regular rhythm Heart sounds: S1 normal heart sound present, S2 normal heart sound present, no click, Gallop heart sound present and no murmurs GI Inspection: Yes distended Auscultation: normal bowel sounds Skin General skin exam: no rashes or lesions noted and ecchymosis Neuro General: patient oriented x3 and no focal motor deficits Extrem General: No clubbing, No cyanosis and Yes edema Objective Labs and Meds Result diagrams: 10/17/22 08:42 10/19/22 07:19 Lab results: Laboratory Results - last 24 hr 10/18/22 10/18/22 10/18/22 13:22 17:34 19:53 Sodium Potassium Chloride Carbon Dioxide Anion Gap BUN Creatinine Estim Creat Clear Calc Estimated GFR POC Glucose 224 H 171 H 177 H Random Glucose Calcium Total Bilirubin AST ALT Alkaline Phosphatase B-Natriuretic Peptide Total Protein Albumin 10/19/22 10/19/22 10/19/22 07:19 07:19 07:23 Sodium 138 Potassium 2.8 L Chloride 84 L Carbon Dioxide 37 H Anion Gap 20 BUN 27 H Creatinine 1.51 H Estim Creat Clear Calc 68.0 Estimated GFR 49 POC Glucose 162 H Random Glucose 158 H Calcium 9.8 D Total Bilirubin 2.4 H AST 28 ALT 16 Alkaline Phosphatase 102 B-Natriuretic Peptide 2772 H Total Protein 7.2 Albumin 3.6 10/19/22 11:00 Sodium Potassium Chloride Carbon Dioxide Anion Gap BUN Creatinine Estim Creat Clear Calc Estimated GFR POC Glucose 147 H Random Glucose Calcium Total Bilirubin AST ALT Alkaline Phosphatase B-Natriuretic Peptide Total Protein Albumin Progress Note: A&P Assessment and plan (1) CHF exacerbation: Status: Acute Assessment and Plan: Heart failure with reduced ejection fraction with worsening LV ejection fraction most likely due to noncompliance with neurohormonal modulation at home. Clinically still appears to be volume overloaded. Diuresing well. Creatinine is improved. Continue to monitor intake and output chart closely as well as monitor his renal function. Replace electrolytes, see below. Continue neurohormonal modulation with losartan, Jardiance and spironolactone therapy. Continue Bumex drip. Overall prognosis is guarded. If there is further worsening of his renal function will probably require inotropic support. Continue to hold carvedilol therapy at this point in time. (2) Nonsustained ventricular tachycardia: Status: Acute Assessment and Plan: Nonsustained VT noted which is not unusual in patient with severe LV systolic dysfunction. Has a defibrillator and on amiodarone therapy continue the same. Hold off on carvedilol therapy. Replace electrolytes. Continue full disclosure cardiac monitoring. Will continue to follow with you Time Spent With Patient Time: Total time spent is greater than 50% in coordination of care (as documented) at patient's floor/unit and/or counseling patient: Progress Note: Quality Stroke Does the patient have a stroke diagnosis?: No Procedures Date of Service Date of Service: 10/19/22
[2022-10-19] MEDS: Potassium Chloride Packet 20 MEQ PACKET 40 MEQ PO ×3 (12:49→18:05)
[2022-10-19] MEDS: Potassium Chloride/H20 10 MEQ/100 ML PIGGYBACK 100 MEQ IV (14:03)
[2022-10-19] MEDS: Magnesium Sulfate/H2O 2 GM/50 ML PIGGYBACK IV (14:30)
[2022-10-19 15:43] LABS: Glucose, Whole Blood 108 mg/dL (60-115)
[2022-10-19] MEDS: Bumetanide 25 MG in Container,Empty 0 ML IVCONT (17:09)
[2022-10-19 17:39] LABS: Anion Gap 19 (12-20); Blood Urea Nitrogen 29 mg/dL (9-16); Calcium 10.2 mg/dL (8.4-10.2); Carbon Dioxide 41 mmol/L (22-29); Chloride 81 mmol/L (96-108); Creatinine Clr Calc Pharmacy 57.5; Estimated Glomerular Filt Rate 42; Glucose Random 93 mg/dL (60-115); Magnesium 2.3 mg/dL (1.6-2.6); Potassium 3.4 mmol/L (3.3-5.1); Sodium 138 mmol/L (135-145)
[2022-10-19 20:11] LABS: Glucose, Whole Blood 133 mg/dL (60-115)
[2022-10-19] MEDS: guaiFENesin DM 100/10/5 ML 5 ML SYRUP PO (22:19)
[2022-10-19] MEDS: Acetaminophen 325 MG TABLET 650 MG PO (22:20)
[2022-10-20] VITALS (10 sets, daily range): BP systolic 94–133; BP diastolic 69–94; PULSE 88–100; RESP 16–22; TEMP 36.2–37.1; O2SAT 92–99
[2022-10-20] MEDS: guaiFENesin DM 100/10/5 ML 5 ML SYRUP PO ×3 (02:06→16:17)
[2022-10-20] MEDS: Benzonatate 100 MG CAPSULE 200 MG PO ×3 (02:06→21:34)
[2022-10-20] MEDS: Apixaban 5 MG TABLET PO ×2 (06:34→18:14)
[2022-10-20] MEDS: Albuterol/Iprat 2.5/0.5MG 3 ML AMPUL.NEB INHALE ×3 (08:05→15:21)
[2022-10-20 08:07] LABS: B Type Natriuretic Peptide 1643 pg/mL (<100)
[2022-10-20 08:10] LABS: Alanine Aminotransferase 19 U/L (0-40); Albumin Level 3.6 g/dL (3.5-5.0); Alkaline Phosphatase 100 U/L (39-117); Anion Gap 17 (12-20); Aspartate Amino Transferase 28 U/L (5-37); Bilirubin Total 2.1 mg/dL (0.0-1.0); Blood Urea Nitrogen 35 mg/dL (9-16); Calcium 9.8 mg/dL (8.4-10.2); Carbon Dioxide 42 mmol/L (22-29); Chloride 81 mmol/L (96-108); Creatinine Clr Calc Pharmacy 58.9; Estimated Glomerular Filt Rate 43; Glucose Random 94 mg/dL (60-115); Magnesium 2.1 mg/dL (1.6-2.6); Potassium 3.2 mmol/L (3.3-5.1); Sodium 137 mmol/L (135-145); Total Protein 7.3 g/dL (6.5-8.0)
[2022-10-20 08:40] LABS: Glucose, Whole Blood 107 mg/dL (60-115)
[2022-10-20] MEDS: Potassium Chloride Packet 20 MEQ PACKET 40 MEQ PO ×4 (09:05→16:12)
[2022-10-20] MEDS: acetaZOLAMIDE sodium 500 MG VIAL IVPUSH ×2 (09:05→21:30)
[2022-10-20] MEDS: 0.9 % Sodium Chloride Flush 3 ML SYRINGE IVFLUSH ×2 (09:05→14:58)
[2022-10-20] MEDS: Spironolactone 25 MG TABLET 50 MG PO (09:06)
[2022-10-20] MEDS: Amiodarone HCL 200 MG TABLET PO (09:06)
[2022-10-20] MEDS: buPROPion HCl XL 150 MG TAB.ER.24H PO (09:06)
[2022-10-20] MEDS: Cyclobenzaprine HCl 10 MG TABLET PO ×2 (09:06→21:44)
[2022-10-20] MEDS: Atorvastatin Calcium 40 MG TABLET PO (09:06)
[2022-10-20] MEDS: predniSONE 20 MG TABLET 40 MG PO (09:06)
[2022-10-20] MEDS: Empagliflozin 10 MG TABLET PO (09:08)
[2022-10-20] MEDS: Losartan Potassium 25 MG TABLET PO (09:08)
--- NOTE | 2022-10-20 11:00 | P.PNIM_ITS ---
Subjective Subjective Date of Service: 10/20/22 Interval History: the patient was seen and evaluated this morning Sitting in his bed, e swelling improving still E Increased HC03 No reported other overnight events. Systemic review: No fever, chills or weakness No chest pain, palpitation Dyspnea at rest, requiring oxygen supplement No abdominal pain, nausea or vomiting No urinary symptoms No reported rash Physical Exam Vital Signs: Vital Signs: Last Vital Signs Temp 97.2 F 10/20/22 08:00 Pulse 94 10/20/22 08:05 Resp 18 10/20/22 08:05 BP 133/79 10/20/22 08:00 Pulse Ox 98 10/20/22 08:00 O2 Del Method 10/20/22 08:00 O2 Flow Rate 2 10/20/22 08:00 BMI result Body Mass Index 33.8 Const: Other: Constitutional : Awake, interactive, not in respiratory distress Neck : Normal inspection, Supple Cardiovascular : RRR, elevated JVP, +2 bilateral lower extremity edema Respiratory : good bilateral air entry, basal fine crackles Gastrointestinal: soft, lax, Normal bowel sounds, Non tender Skin : Warm, Dry Neurological : Alert & oriented x3, No focal deficit Objective Data Active Medications Acetaminophen (Acetaminophen 325 Mg Tablet) 650 mg PO Q6H PRN PRN Reason: Pain, Mild (Pain Scale 1-3) Last Admin: 10/19/22 22:20 Dose: 650 mg Documented By: DYLAN Hydrocodone Bitart/Acetaminophen (Hydrocodone Bit/Acetam 10/325 Tablet) 1 tab PO Q4H PRN PRN Reason: Pain, Severe (Pain Scale 7-10) Last Admin: 10/20/22 06:34 Dose: 1 tab Documented By: DYLAN Acetazolamide (Acetazolamide Sodium 500 Mg Vial) 500 mg IVPUSH BID [facility] Last Admin: 10/20/22 09:05 Dose: 500 mg Documented By: CTORRZ Albuterol/Ipratropium (Albuterol/Iprat 2.5/0.5mg 3 Ml Ampul.Neb) 3 ml INHALE 6XD PRN PRN Reason: Shortness Of Breath Or Wheezing Albuterol/Ipratropium (Albuterol/Iprat 2.5/0.5mg 3 Ml Ampul.Neb) 3 ml INHALE RQ4H WHILE AWAKE [facility] Last Admin: 10/20/22 08:05 Dose: 3 ml Documented By: KATIA Amiodarone HCl (Amiodarone Hcl 200 Mg Tablet) 200 mg PO DAILY [facility] Last Admin: 10/20/22 09:06 Dose: 200 mg Documented By: NICKIORROleg Apixaban (Apixaban 5 Mg Tablet) 5 mg PO BID@0600,1800 [facility] Last Admin: 10/20/22 06:34 Dose: 5 mg Documented By: DYLAN Atorvastatin Calcium (Atorvastatin Calcium 40 Mg Tablet) 40 mg PO DAILY [facility] Last Admin: 10/20/22 09:06 Dose: 40 mg Documented By: CTSAILAJA Benzonatate (Benzonatate 100 Mg Capsule) 200 mg PO TID PRN PRN Reason: cough Last Admin: 10/20/22 02:06 Dose: 200 mg Documented By: DYLAN Bupropion HCl (Bupropion Hcl Xl 150 Mg Tab.Er.24h) 150 mg PO DAILY [facility] Last Admin: 10/20/22 09:06 Dose: 150 mg Documented By: JIM Carvedilol (Carvedilol 6.25 Mg Tablet) 6.25 mg PO BID [facility]; Protocol Last Admin: 10/18/22 12:10 Dose: 6.25 mg Documented By: MYRIAM Cyclobenzaprine HCl (Cyclobenzaprine Hcl 10 Mg Tablet) 10 mg PO BID [facility] Last Admin: 10/20/22 09:06 Dose: 10 mg Documented By: JIM Dextrose (Dextrose 50 % 25 Gm/50 Ml Syringe) 25 gm IVPUSH Q15M PRN; Protocol PRN Reason: per Hypoglycemia Standing Ord. Empagliflozin (Empagliflozin 10 Mg Tablet) 10 mg PO DAILY [facility] Last Admin: 10/20/22 09:08 Dose: 10 mg Documented By: JIM Glucose (Glucose Gel 15 Gm Gel..Gram.) 15 gm PO Q15M PRN; Protocol PRN Reason: per Hypoglycemia Standing Ord. Guaifenesin/Dextromethorphan (Guaifenesin Dm 100/10/5 Ml 5 Ml Syrup) 5 ml PO Q4H PRN PRN Reason: cough Last Admin: 10/20/22 06:34 Dose: 5 ml Documented By: DYLAN Bumetanide 25 mg/ IV (Miscellaneous Supplies) 100 mls @ 2 mls/hr IVCONT .Q24H [facility] Last Admin: 10/19/22 17:09 Dose: 0.5 mg/hr, 2 mls/hr Documented By: JIM Insulin Human Lispro (Insulin Lispro 100 Unit/Ml 3 Ml Vial) 0 unit SUBCUT QIDACHS [facility]; Protocol Last Admin: 10/20/22 08:46 Dose: Not Given Documented By: JIM Non-Admin Reason: No Insulin Coverage Losartan Potassium (Losartan Potassium 25 Mg Tablet) 25 mg PO DAILY [facility]; Protocol Last Admin: 10/20/22 09:08 Dose: 25 mg Documented By: JIM Morphine Sulfate (Morphine Sulfate 2 Mg/Ml Cartridge) 2 mg IVPUSH Q4H PRN; Protocol PRN Reason: Pain, Severe (Pain Scale 7-10) Ondansetron HCl (Ondansetron Hcl 4 Mg/2 Ml Vial) 4 mg IVPUSH Q8H PRN PRN Reason: Nausea and Vomiting Pharmacy Consult (Consult Rx Perform Med Rec) 1 each MISCELLANE ONCE PRN PRN Reason: Consult order Potassium Chloride (Potassium Chloride Packet 20 Meq Packet) 40 meq PO Q2H [facility] Stop: 10/20/22 11:01 Last Admin: 10/20/22 09:05 Dose: 40 meq Documented By: JIM Prednisone (Prednisone 20 Mg Tablet) 40 mg PO DAILY [facility] Last Admin: 10/20/22 09:06 Dose: 40 mg Documented By: JIM Senna (Sennosides 8.6 Mg Tablet) 17.2 mg PO BEDTIME PRN PRN Reason: Constipation Sodium Chloride (0.9 % Sodium Chloride Flush 3 Ml Syringe) 3 ml IVFLUSH QSHIFT [facility] Last Admin: 10/20/22 09:05 Dose: 3 ml Documented By: JIM Spironolactone (Spironolactone 25 Mg Tablet) 50 mg PO DAILY [facility]; Protocol Last Admin: 10/20/22 09:06 Dose: 50 mg Documented By: JIM Labs CBC & Chem 7: 10/17/22 08:42 10/20/22 06:51 Labs: Laboratory Results - last 24 hr 10/19/22 10/19/22 10/19/22 07:19 11:00 15:13 Anion Gap Estim Creat Clear Calc Estimated GFR POC Glucose 147 H 108 Random Glucose Calcium Magnesium 2.0 Total Bilirubin AST ALT Alkaline Phosphatase B-Natriuretic Peptide Total Protein Albumin 10/19/22 10/19/22 10/20/22 17:04 19:25 06:51 Anion Gap 19 17 Estim Creat Clear Calc 57.5 58.9 Estimated GFR 42 43 POC Glucose 133 H Random Glucose 93 94 Calcium 10.2 9.8 Magnesium 2.3 2.1 Total Bilirubin 2.1 H AST 28 ALT 19 Alkaline Phosphatase 100 B-Natriuretic Peptide Total Protein 7.3 Albumin 3.6 10/20/22 10/20/22 10/20/22 06:51 06:51 08:16 Anion Gap Cancelled Estim Creat Clear Calc Cancelled Estimated GFR Cancelled POC Glucose 107 Random Glucose Cancelled Calcium Cancelled Magnesium Total Bilirubin AST ALT Alkaline Phosphatase B-Natriuretic Peptide 1643 H Total Protein Albumin Assessment and Plan (1) Nonsustained ventricular tachycardia: Status: Acute (2) CHF exacerbation: Status: Acute (3) Anasarca: Status: Acute Plan 52-year-old male with history of heart failure with reduced ejection fraction last echocardiogram showing EF 15-20%, nonischemic cardiomyopathy, history CVA, chronic low back pain, COPD, hypertension, and SVT with ICD and cardiac pacer in place, history of VFib, who is a current half pack per day cigarette smoker admitted to the hospital for acute CHF and COPD exacerbation with anasarca. # Anasarca 2/2 acute CHF exacerbation with baseline HRrEF Improving Repeated echo showing EF less than 10% with diastolic dysfunction, severely reduced systolic function Continue IV Bumex drip Follow BNP strict I&O cardiology input appreciated # contraction alkalosis CO2 level increasing Start Diamox IV Monitor BMP # acute COPD exacerbation likely secondary to COVID-19 CXR negative for pneumonia Changed to p.o. prednisone daily DuoNebs q.4h while awake # NSVT To reported episodes, 1 symptomatic with dizziness, patient on ICD Continue amiodarone Correct electrolytes, give potassium and magnesium supplement Follow BMP and magnesium level # Hypokalemia Potassium 3.1 To give p.o. replacement Repeat BMP this afternoon # COVID-19 initial diagnosis 10/19 no indication for IV antivirals or Decadron. On Solu-Medrol droplet/contact precautions # hyperbilirubinemia Stable, likely secondary to acute CHF follow CMP # hypertension stable, continue home meds # diabetes hold oral antihyperglycemics low-dose sliding scale insulin diabetic diet # atrial fibrillation-rate controlled continue Eliquis for anticoagulation On hold carvedilol DVT prophylaxis Eliquis Patient requires inpatient stay of overnights due to acute CHF exacerbation with anasarca requiring IV diuresis and close monitoring of fluids for cardiopulmonary decompensation Quality Stroke Does the patient have a stroke diagnosis?: No VTE Prior VTE?: No VTE Risk Level:: Medical - moderate - high VTE Device Contraindication: Treatment Not Indicated VTE Drug Contraindication: N/A - Med Ordered
[2022-10-20 11:21] LABS: Glucose, Whole Blood 105 mg/dL (60-115)
--- NOTE | 2022-10-20 11:36 | P.PNCA_ITS ---
Subjective Subjective Date of Service: 10/20/22 Principal diagnosis: Decompensated CHF Interval history: Patient diuresing well as diuresed greater than 3 L since yesterday. Creatinine is slightly elevated with elevated CO2. Leg edema is improving. He says his s hortness of breath has not improved and complains of cough with productive phlegm as well as pain across his chest. He is asking for pain medications. He has today noted to have nonsustained VT. Currently receiving potassium and magnesium IV supplementation. Review of Systems Constitutional: Reports weakness Cardiovascular: Reports leg edema and Reports dyspnea Respiratory: Reports pain with cough and Reports dyspnea Gastrointestinal: Reports no additional gastrointestinal complaints Genitourinary: Reports no additional male genitourinary complaints Musculoskeletal: Reports no additional musculoskeletal complaints Skin/Breast: Reports system reviewed and no additional complaints, except as docu Reports system reviewed and no additional complaints, except as documented and Reports weakness Psychiatric: Reports no additional psychiatric complaints Endocrine: Reports no additional endocrine complaints Hematologic/Lymphatic: Reports no additional hematologic/lymphatic complaints Allergic/Immunologic: Reports no additional allergic/immunologic complaints Physical Exam Vital Signs: Last Vital Signs Temp 97.2 F 10/20/22 08:00 Pulse 94 10/20/22 08:05 Resp 18 10/20/22 08:05 BP 133/79 10/20/22 08:00 Pulse Ox 98 10/20/22 08:00 O2 Del Method 10/20/22 08:00 O2 Flow Rate 2 10/20/22 08:00 BMI result Body Mass Index 33.8 Const General: cooperative, comfortable, alert, awake and ill appearing Nutritional Appearance: obese Orientation/consciousness: patient oriented x3 Neck Neck: Yes trachea midline, Yes supple and Yes JVD Resp Effort & Inspection: decreased respiratory effort Auscultation: crackles, no wheezes and diminished lung sounds Cardio Jugular venous distension: JVD Palpation: abnormal PMI displaced PMI Rate: regular rate Rhythm: regular rhythm Heart sounds: S1 normal heart sound present, S2 normal heart sound present, no click, no gallops and no murmurs Skin General skin exam: no rashes or lesions noted Neuro General: patient oriented x3 and no focal motor deficits Extrem General: No clubbing, No cyanosis and Yes edema Objective Labs and Meds Result diagrams: 10/17/22 08:42 10/20/22 06:51 Lab results: Laboratory Results - last 24 hr 10/19/22 10/19/22 10/19/22 07:19 15:13 17:04 Sodium 138 Potassium 3.4 D Chloride 81 L Carbon Dioxide 41 H* Anion Gap 19 BUN 29 H Creatinine 1.71 H Estim Creat Clear Calc 57.5 Estimated GFR 42 POC Glucose 108 Random Glucose 93 Calcium 10.2 Magnesium 2.0 2.3 Total Bilirubin AST ALT Alkaline Phosphatase B-Natriuretic Peptide Total Protein Albumin 10/19/22 10/20/22 10/20/22 19:25 06:51 06:51 Sodium 137 Potassium 3.2 L Chloride 81 L Carbon Dioxide 42 H* Anion Gap 17 BUN 35 H Creatinine 1.67 H Estim Creat Clear Calc 58.9 Estimated GFR 43 POC Glucose 133 H Random Glucose 94 Calcium 9.8 Magnesium 2.1 Total Bilirubin 2.1 H AST 28 ALT 19 Alkaline Phosphatase 100 B-Natriuretic Peptide 1643 H Total Protein 7.3 Albumin 3.6 10/20/22 10/20/22 10/20/22 06:51 08:16 11:17 Sodium Cancelled Potassium Cancelled Chloride Cancelled Carbon Dioxide Cancelled Anion Gap Cancelled BUN Cancelled Creatinine Cancelled Estim Creat Clear Calc Cancelled Estimated GFR Cancelled POC Glucose 107 105 Random Glucose Cancelled Calcium Cancelled Magnesium Total Bilirubin AST ALT Alkaline Phosphatase B-Natriuretic Peptide Total Protein Albumin Progress Note: A&P Assessment and plan (1) CHF exacerbation: Status: Acute Assessment and Plan: CHF exacerbation with marked LV systolic dysfunction this middle-aged man with poor compliance to medications outpatient. Likely responsible for his worsening LV systolic function. This was discussed with him. Slightly worsening creatinine and elevated CO2 probably suggest renal hypoperfusion from or rapid diuresis. Will reduce Bumex drip 2.2 5 mg an hour. Continue strict intake and output chart. Continue neurohormonal modulation with losartan, spironolactone. Introduce low-dose carvedilol 3.125 mg b.i.d. to his regimen. Overall prognosis is guarded. Continue monitor renal function as well as BNP tomorrow (2) Nonsustained ventricular tachycardia: Status: Acute Assessment and Plan: Nonsustained ventricular tachycardia multifactorial related to severe LV systolic dysfunction setting of heart failure exacerbation with electrolyte abnormality. Continue to replace electrolyte abnormality. He is on amiodarone which will be continued. Starting Coreg today. Also has ICD placement for primary prevention. Continue full disclosure cardiac monitoring. Maintain potassium above 4 and magnesium above 2 Will continue to follow with you. Time Spent With Patient Time: Total time spent is greater than 50% in coordination of care (as documented) at patient's floor/unit and/or counseling patient: Progress Note: Quality Stroke Does the patient have a stroke diagnosis?: No Procedures Date of Service Date of Service: 10/20/22
[2022-10-20] MEDS: Morphine Sulfate 2 MG/ML CARTRIDGE IVPUSH (14:58)
[2022-10-20 16:04] LABS: Glucose, Whole Blood 117 mg/dL (60-115)
[2022-10-20] MEDS: Bumetanide 25 MG in Container,Empty 0 ML IVCONT (16:13)
[2022-10-20] MEDS: Throat Lozenge, Medicated LOZENGE 1 LOZENGE MUCOUS MEM (16:17)
[2022-10-20 19:54] LABS: Glucose, Whole Blood 107 mg/dL (60-115)
[2022-10-20] MEDS: carvediloL 6.25 MG TABLET PO (21:29)
[2022-10-21] VITALS (10 sets, daily range): BP systolic 92–117; BP diastolic 57–80; PULSE 82–103; RESP 12–24; TEMP 35.9–36.2; O2SAT 88–99
[2022-10-21] MEDS: Apixaban 5 MG TABLET PO ×2 (05:18→17:53)
[2022-10-21 06:31] LABS: Anion Gap 16 (12-20); Blood Urea Nitrogen 40 mg/dL (9-16); Calcium 10.2 mg/dL (8.4-10.2); Chloride 80 mmol/L (96-108); Creatinine Clr Calc Pharmacy 56.5; Estimated Glomerular Filt Rate 41; Glucose Random 139 mg/dL (60-115); Potassium 4.1 mmol/L (3.3-5.1); Sodium 135 mmol/L (135-145)
[2022-10-21 06:34] LABS: B Type Natriuretic Peptide 1589 pg/mL (<100)
[2022-10-21 06:44] LABS: Glucose, Whole Blood 112 mg/dL (60-115)
[2022-10-21 06:52] LABS: Carbon Dioxide 43 mmol/L (22-29)
[2022-10-21] MEDS: Albuterol/Iprat 2.5/0.5MG 3 ML AMPUL.NEB INHALE ×4 (07:33→19:18)
[2022-10-21 07:38] LABS: Glucose, Whole Blood 99 mg/dL (60-115)
--- NOTE | 2022-10-21 08:05 | PC.NURSE ---
Critical labs reported this AM for CO2 @ 43. Dr Us and DR Mckeon notified
[2022-10-21] MEDS: Cyclobenzaprine HCl 10 MG TABLET PO ×2 (09:34→20:37)
[2022-10-21] MEDS: Atorvastatin Calcium 40 MG TABLET PO (09:35)
[2022-10-21] MEDS: Amiodarone HCL 200 MG TABLET PO (09:35)
[2022-10-21] MEDS: buPROPion HCl XL 150 MG TAB.ER.24H PO (09:35)
[2022-10-21] MEDS: predniSONE 20 MG TABLET 40 MG PO (09:35)
[2022-10-21] MEDS: Empagliflozin 10 MG TABLET PO (09:35)
[2022-10-21] MEDS: 0.9 % Sodium Chloride Flush 3 ML SYRINGE IVFLUSH ×3 (09:39→22:31)
[2022-10-21 11:14] LABS: Glucose, Whole Blood 109 mg/dL (60-115)
[2022-10-21] MEDS: Bumetanide 25 MG in Container,Empty 0 ML IVCONT (11:29)
--- NOTE | 2022-10-21 12:05 | MHC.CM.PN ---
Per ROUNDS discussion, Patient is on a Bumex Drip and not yet medically cleared for dc. Home is the goal and CM will continue to follow.
--- NOTE | 2022-10-21 12:49 | HO.PM.IMPN ---
Subjective Subjective Date of Service: 10/21/22 Interval History: the patient was seen and evaluated this morning Sitting in his bed, swelling improving stable HC03 No reported other overnight events. Systemic review: No fever, chills or weakness No chest pain, palpitation Dyspnea at rest, requiring oxygen supplement No abdominal pain, nausea or vomiting No urinary symptoms No reported rash Physical Exam Vital Signs: Vital Signs: Last Vital Signs Temp 96.6 F L 10/21/22 12:00 Pulse 86 10/21/22 12:22 Resp 24 H 10/21/22 12:22 BP 106/76 10/21/22 12:00 Pulse Ox 93 10/21/22 12:00 O2 Del Method 10/21/22 12:00 O2 Flow Rate 2 10/21/22 12:00 BMI result Body Mass Index 33.8 Const: Other: Constitutional : Awake, interactive, not in respiratory distress Neck : Normal inspection, Supple Cardiovascular : RRR, elevated JVP, +1 bilateral lower extremity edema Respiratory : good bilateral air entry, basal fine crackles Gastrointestinal: soft, lax, Normal bowel sounds, Non tender Skin : Warm, Dry Neurological : Alert & oriented x3, No focal deficit Objective Data Active Medications Acetaminophen (Acetaminophen 325 Mg Tablet) 650 mg PO Q6H PRN PRN Reason: Pain, Mild (Pain Scale 1-3) Last Admin: 10/19/22 22:20 Dose: 650 mg Documented By: ANTBILL Hydrocodone Bitart/Acetaminophen (Hydrocodone Bit/Acetam 10/325 Tablet) 1 tab PO Q4H PRN PRN Reason: Pain, Severe (Pain Scale 7-10) Last Admin: 10/21/22 04:17 Dose: 1 tab Documented By: VAL Acetazolamide (Acetazolamide Sodium 500 Mg Vial) 500 mg IVPUSH BID [facility] Last Admin: 10/21/22 09:38 Dose: Not Given Documented By: MU Non-Admin Reason: Physician Held Med Albuterol/Ipratropium (Albuterol/Iprat 2.5/0.5mg 3 Ml Ampul.Neb) 3 ml INHALE 6XD PRN PRN Reason: Shortness Of Breath Or Wheezing Albuterol/Ipratropium (Albuterol/Iprat 2.5/0.5mg 3 Ml Ampul.Neb) 3 ml INHALE RQ4H WHILE AWAKE [facility] Last Admin: 10/21/22 12:21 Dose: 3 ml Documented By: ISRRAEL Amiodarone HCl (Amiodarone Hcl 200 Mg Tablet) 200 mg PO DAILY [facility] Last Admin: 10/21/22 09:35 Dose: 200 mg Documented By: MU Apixaban (Apixaban 5 Mg Tablet) 5 mg PO BID@0600,1800 [facility] Last Admin: 10/21/22 05:18 Dose: 5 mg Documented By: DONNELL Atorvastatin Calcium (Atorvastatin Calcium 40 Mg Tablet) 40 mg PO DAILY [facility] Last Admin: 10/21/22 09:35 Dose: 40 mg Documented By: MU Benzocaine (Throat Lozenge, Medicated Lozenge) 1 lozenge MUCOUS MEM Q2H PRN PRN Reason: Sore Throat Last Admin: 10/20/22 16:17 Dose: 1 lozenge Documented By: CTORRZ Benzonatate (Benzonatate 100 Mg Capsule) 200 mg PO TID PRN PRN Reason: cough Last Admin: 10/20/22 21:34 Dose: 200 mg Documented By: DONNELL Bupropion HCl (Bupropion Hcl Xl 150 Mg Tab.Er.24h) 150 mg PO DAILY [facility] Last Admin: 10/21/22 09:35 Dose: 150 mg Documented By: MU Carvedilol (Carvedilol 6.25 Mg Tablet) 6.25 mg PO BID [facility]; Protocol Last Admin: 10/21/22 09:36 Dose: Not Given Documented By: MU Non-Admin Reason: Physician Held Med Cyclobenzaprine HCl (Cyclobenzaprine Hcl 10 Mg Tablet) 10 mg PO BID [facility] Last Admin: 10/21/22 09:34 Dose: 10 mg Documented By: MU Dextrose (Dextrose 50 % 25 Gm/50 Ml Syringe) 25 gm IVPUSH Q15M PRN; Protocol PRN Reason: per Hypoglycemia Standing Ord. Empagliflozin (Empagliflozin 10 Mg Tablet) 10 mg PO DAILY [facility] Last Admin: 10/21/22 09:35 Dose: 10 mg Documented By: MU Glucose (Glucose Gel 15 Gm Gel..Gram.) 15 gm PO Q15M PRN; Protocol PRN Reason: per Hypoglycemia Standing Ord. Guaifenesin/Dextromethorphan (Guaifenesin Dm 100/10/5 Ml 5 Ml Syrup) 5 ml PO Q4H PRN PRN Reason: cough Last Admin: 10/20/22 16:17 Dose: 5 ml Documented By: JIM Bumetanide 25 mg/ IV (Miscellaneous Supplies) 100 mls @ 1 mls/hr IVCONT .Q24H [facility] Last Admin: 10/21/22 11:29 Dose: 0.5 mg/hr, 2 mls/hr Documented By: MU Insulin Human Lispro (Insulin Lispro 100 Unit/Ml 3 Ml Vial) 0 unit SUBCUT QIDACHS [facility]; Protocol Last Admin: 10/21/22 11:30 Dose: Not Given Documented By: MU Non-Admin Reason: No Insulin Coverage Losartan Potassium (Losartan Potassium 25 Mg Tablet) 25 mg PO DAILY [facility]; Protocol Last Admin: 10/21/22 09:36 Dose: Not Given Documented By: MU Non-Admin Reason: Physician Held Med Morphine Sulfate (Morphine Sulfate 2 Mg/Ml Cartridge) 2 mg IVPUSH Q4H PRN; Protocol PRN Reason: Pain, Severe (Pain Scale 7-10) Last Admin: 10/20/22 14:58 Dose: 2 mg Documented By: JIM Ondansetron HCl (Ondansetron Hcl 4 Mg/2 Ml Vial) 4 mg IVPUSH Q8H PRN PRN Reason: Nausea and Vomiting Pharmacy Consult (Consult Rx Perform Med Rec) 1 each MISCELLANE ONCE PRN PRN Reason: Consult order Prednisone (Prednisone 20 Mg Tablet) 40 mg PO DAILY [facility] Last Admin: 10/21/22 09:35 Dose: 40 mg Documented By: MU Senna (Sennosides 8.6 Mg Tablet) 17.2 mg PO BEDTIME PRN PRN Reason: Constipation Sodium Chloride (0.9 % Sodium Chloride Flush 3 Ml Syringe) 3 ml IVFLUSH QSHIFT [facility] Last Admin: 10/21/22 09:39 Dose: 3 ml Documented By: MU Spironolactone (Spironolactone 25 Mg Tablet) 50 mg PO DAILY [facility]; Protocol Last Admin: 10/21/22 11:25 Dose: Not Given Documented By: MU Non-Admin Reason: bp's low Labs CBC & Chem 7: 10/17/22 08:42 10/21/22 06:07 Labs: Laboratory Results - last 24 hr 10/20/22 10/20/22 10/21/22 15:55 19:49 06:07 Anion Gap 16 Estim Creat Clear Calc 56.5 Estimated GFR 41 POC Glucose 117 H 107 Random Glucose 139 H Calcium 10.2 B-Natriuretic Peptide 10/21/22 10/21/22 10/21/22 06:07 06:41 07:28 Anion Gap Estim Creat Clear Calc Estimated GFR POC Glucose 112 99 Random Glucose Calcium B-Natriuretic Peptide 1589 H 10/21/22 10:58 Anion Gap Estim Creat Clear Calc Estimated GFR POC Glucose 109 Random Glucose Calcium B-Natriuretic Peptide Assessment and Plan (1) Nonsustained ventricular tachycardia: Status: Acute (2) CHF exacerbation: Status: Acute (3) Anasarca: Status: Acute (4) COVID-19: Status: Acute Plan 52-year-old male with history of heart failure with reduced ejection fraction last echocardiogram showing EF 15-20%, nonischemic cardiomyopathy, history CVA, chronic low back pain, COPD, hypertension, and SVT with ICD and cardiac pacer in place, history of VFib, who is a current half pack per day cigarette smoker admitted to the hospital for acute CHF and COPD exacerbation with anasarca. # Anasarca 2/2 acute CHF exacerbation with baseline HRrEF Improving Repeated echo showing EF less than 10% with diastolic dysfunction, severely reduced systolic function decrease IV Bumex drip to 0.25 mg\hr Follow BNP strict I&O cardiology input appreciated # contraction alkalosis CO2 level increasing Diamox IV Monitor BMP # acute COPD exacerbation likely secondary to COVID-19 CXR negative for pneumonia Changed to p.o. prednisone daily DuoNebs q.4h while awake # NSVT To reported episodes, 1 symptomatic with dizziness, patient on ICD Continue amiodarone Correct electrolytes, give potassium and magnesium supplement Follow BMP and magnesium level # Hypokalemia, resolved keep Potassium >4 p.o. replacement Repeat BMP this afternoon # COVID-19 initial diagnosis 10/19 no indication for IV antivirals or Decadron. On Solu-Medrol droplet/contact precautions # hyperbilirubinemia Stable, likely secondary to acute CHF follow CMP # hypertension stable, continue home meds # diabetes hold oral antihyperglycemics low-dose sliding scale insulin diabetic diet # atrial fibrillation-rate controlled continue Eliquis for anticoagulation On hold carvedilol DVT prophylaxis Eliquis Patient requires inpatient stay of overnights due to acute CHF exacerbation with anasarca requiring IV diuresis and close monitoring of fluids for cardiopulmonary decompensation Quality Stroke Does the patient have a stroke diagnosis?: No VTE Prior VTE?: No VTE Risk Level:: Medical - moderate - high VTE Device Contraindication: Treatment Not Indicated VTE Drug Contraindication: N/A - Med Ordered
[2022-10-21] MEDS: Potassium Chloride Packet 20 MEQ PACKET 40 MEQ PO (14:12)
[2022-10-21 17:14] LABS: Glucose, Whole Blood 201 mg/dL (60-115)
[2022-10-21] MEDS: Insulin Lispro 100 UNIT/ML 3 ML VIAL SUBCUT ×2 (17:53→21:12)
[2022-10-21] MEDS: acetaZOLAMIDE sodium 500 MG VIAL IVPUSH (20:32)
[2022-10-21] MEDS: guaiFENesin DM 100/10/5 ML 5 ML SYRUP PO (20:37)
[2022-10-21] MEDS: Potassium Chloride ER 20 MEQ TAB.ER.PRT PO (20:38)
[2022-10-21 21:01] LABS: Glucose, Whole Blood 168 mg/dL (60-115)
[2022-10-21] MEDS: Morphine Sulfate 2 MG/ML CARTRIDGE IVPUSH (22:25)
[2022-10-22] VITALS (7 sets, daily range): BP systolic 80–136; BP diastolic 55–98; PULSE 78–98; RESP 16–20; TEMP 35.8–36.1; O2SAT 92–99
--- NOTE | 2022-10-22 01:47 | PC.NURSE ---
Per report from Roxanne BECK , day shift cardiac Medications were held on day shift d/t soft BP. This RN notified Dr Greenwood prior to 2100 Med pass( BP 106/72 HR 90) was directed to hold 2100 Carvedolol dose.
[2022-10-22] MEDS: Apixaban 5 MG TABLET PO ×2 (06:05→17:17)
[2022-10-22 07:28] LABS: Anion Gap 19 (12-20); Blood Urea Nitrogen 46 mg/dL (9-16); Calcium 10.2 mg/dL (8.4-10.2); Carbon Dioxide 38 mmol/L (22-29); Chloride 82 mmol/L (96-108); Creatinine Clr Calc Pharmacy 55.2; Estimated Glomerular Filt Rate 40; Glucose Random 120 mg/dL (60-115); Potassium 3.8 mmol/L (3.3-5.1); Sodium 135 mmol/L (135-145)
[2022-10-22 07:31] LABS: Glucose, Whole Blood 129 mg/dL (60-115)
[2022-10-22 07:39] LABS: B Type Natriuretic Peptide 2397 pg/mL (<100)
[2022-10-22] MEDS: 0.9 % Sodium Chloride Flush 3 ML SYRINGE IVFLUSH ×2 (09:45→21:09)
[2022-10-22] MEDS: acetaZOLAMIDE sodium 500 MG VIAL IVPUSH (09:45)
[2022-10-22] MEDS: Spironolactone 25 MG TABLET 50 MG PO (09:45)
[2022-10-22] MEDS: Amiodarone HCL 200 MG TABLET PO (09:46)
[2022-10-22] MEDS: Empagliflozin 10 MG TABLET PO (09:46)
[2022-10-22] MEDS: Atorvastatin Calcium 40 MG TABLET PO (09:46)
[2022-10-22] MEDS: buPROPion HCl XL 150 MG TAB.ER.24H PO (09:46)
[2022-10-22] MEDS: predniSONE 20 MG TABLET 40 MG PO (09:46)
[2022-10-22] MEDS: Cyclobenzaprine HCl 10 MG TABLET PO (09:46)
[2022-10-22] MEDS: Potassium Chloride ER 20 MEQ TAB.ER.PRT PO ×2 (09:46→21:08)
[2022-10-22] MEDS: Losartan Potassium 25 MG TABLET PO (09:46)
[2022-10-22] MEDS: carvediloL 6.25 MG TABLET PO (09:47)
--- NOTE | 2022-10-22 10:08 | PM.PNCARD ---
Subjective Subjective Date of Service: 10/22/22 Principal diagnosis: Decompensated CHF Interval history: He states he is feeling okay. Shortness of breath is at baseline. Some good days and some bad days according to him. Lying down comfortably and somewhat sleepy. However, answers well to questions. Review of Systems Review of Systems Yes all other systems are reviewed and are negative Constitutional: Reports as per HPI Eyes: Reports as per HPI Reports as per HPI Cardiovascular: Reports as per HPI, Denies acrocyanosis, Denies cool extremities, Denies chest pain, Denies leg edema, Denies lightheadedness, Denies palpitations and Reports dyspnea Respiratory: Reports as per HPI, Reports no additional respiratory complaints and Reports dyspnea Gastrointestinal: Reports as per HPI and Reports no additional gastrointestinal complaints Genitourinary: Reports no additional male genitourinary complaints and Reports as per HPI Musculoskeletal: Reports no additional musculoskeletal complaints and Reports as per HPI Skin/Breast: Reports system reviewed and no additional complaints, except as docu Reports system reviewed and no additional complaints, except as documented and Reports as per HPI Psychiatric: Reports no additional psychiatric complaints and Reports as per HPI Endocrine: Reports no additional endocrine complaints, Reports as per HPI and Denies palpitations Hematologic/Lymphatic: Reports no additional hematologic/lymphatic complaints and Reports as per HPI Allergic/Immunologic: Reports no additional allergic/immunologic complaints and Reports as per HPI Physical Exam Vital Signs: Last Vital Signs Temp 96.5 F L 10/22/22 07:25 Pulse 98 10/22/22 07:25 Resp 18 10/22/22 07:25 BP 136/98 H 10/22/22 07:25 Pulse Ox 94 10/22/22 07:25 O2 Del Method 10/22/22 07:25 O2 Flow Rate 2 10/22/22 07:25 BMI result Body Mass Index 33.8 Const General: comfortable and no acute distress Orientation/consciousness: patient oriented x3 HEENT Other: Unremarkable Head: Yes normal to inspection Neck Neck: Yes normal visual inspection Chest Chest palpation & inspection: normal inspection of the chest Resp Auscultation: clear to auscultation bilaterally Cardio Palpation: normal PMI Heart sounds: S1 normal heart sound present, S2 normal heart sound present, no gallops, no murmurs and no rubs GI Palpation (GI): Soft to palpation Back/Spine/Pelvis Other: unremarkable Skin General skin exam: no rashes or lesions noted Neuro General: patient oriented x3 Extrem General: Yes normal to inspection and Yes pedal edema (1+) Psych Mental Status: mental status grossly normal Objective Labs and Meds Result diagrams: 10/17/22 08:42 10/22/22 06:36 Lab results: Laboratory Results - last 24 hr 10/21/22 10/21/22 10/21/22 10:58 17:10 20:58 Sodium Potassium Chloride Carbon Dioxide Anion Gap BUN Creatinine Estim Creat Clear Calc Estimated GFR POC Glucose 109 201 H 168 H Random Glucose Calcium B-Natriuretic Peptide 10/22/22 10/22/22 10/22/22 06:36 06:36 07:25 Sodium 135 Potassium 3.8 Chloride 82 L Carbon Dioxide 38 H Anion Gap 19 BUN 46 H D Creatinine 1.78 H Estim Creat Clear Calc 55.2 Estimated GFR 40 POC Glucose 129 H Random Glucose 120 H Calcium 10.2 B-Natriuretic Peptide 2397 H Progress Note: A&P Assessment and plan (1) Acute on chronic systolic and diastolic heart failure, NYHA class 3: Status: Acute (2) Acute on chronic right heart failure: Status: Acute (3) COVID-19: Status: Acute Plan Overall, improved from time of hospitalization. Shortness of breath seems to be at baseline. We can change the diuretics to oral. He is on a comprehensive set of medications including Coreg, losartan, Farxiga, spironolactone among others. However, noncompliance. He was also referred to [facility] heart failure service in the past but again not sure how much she is keeping up with them either. Lot of noncompliance with office appointments too. We have discussed all these so many times with him. However, not sure if he will keep up or not. Otherwise, he has been on amiodarone because of ventricular tachycardia/fibrillation history requiring ICD therapy in the past. Check TSH. In the last EKG, there is borderline prolongation of corrected QT to [address] Mckeon. Time Spent With Patient Time: Total time spent is greater than 50% in coordination of care (as documented) at patient's floor/unit and/or counseling patient: 33min. Progress Note: Quality Stroke Does the patient have a stroke diagnosis?: No Procedures Date of Service Date of Service: 10/22/22
[2022-10-22 11:30] LABS: Glucose, Whole Blood 110 mg/dL (60-115)
--- NOTE | 2022-10-22 15:20 | P.PNIM_ITS ---
Subjective Subjective Date of Service: 10/22/22 Interval History: the patient was seen and evaluated this morning Sitting in his bed, swelling improving stable HC03 No reported other overnight events. Systemic review: No fever, chills or weakness No chest pain, palpitation Dyspnea at rest, requiring oxygen supplement No abdominal pain, nausea or vomiting No urinary symptoms No reported rash Physical Exam Vital Signs: Vital Signs: Last Vital Signs Temp 96.9 F 10/22/22 15:16 Pulse 79 10/22/22 15:16 Resp 16 10/22/22 15:16 BP 82/64 L 10/22/22 15:16 Pulse Ox 94 10/22/22 15:16 O2 Del Method 10/22/22 15:16 O2 Flow Rate 2 10/22/22 07:25 BMI result Body Mass Index 33.8 Const: Other: Constitutional : Awake, interactive, not in respiratory distress Neck : Normal inspection, Supple Cardiovascular : RRR, elevated JVP, +1 bilateral lower extremity edema Respiratory : good bilateral air entry, basal fine crackles Gastrointestinal: soft, lax, Normal bowel sounds, Non tender Skin : Warm, Dry Neurological : Alert & oriented x3, No focal deficit Objective Data Active Medications Acetaminophen (Acetaminophen 325 Mg Tablet) 650 mg PO Q6H PRN PRN Reason: Pain, Mild (Pain Scale 1-3) Last Admin: 10/19/22 22:20 Dose: 650 mg Documented By: ANTOIC Hydrocodone Bitart/Acetaminophen (Hydrocodone Bit/Acetam 10/325 Tablet) 1 tab PO Q4H PRN PRN Reason: Pain, Severe (Pain Scale 7-10) Last Admin: 10/22/22 06:04 Dose: 1 tab Documented By: LEN Acetazolamide (Acetazolamide Sodium 500 Mg Vial) 500 mg IVPUSH BID [facility] Last Admin: 10/22/22 09:45 Dose: 500 mg Documented By: CTORROleg Albuterol/Ipratropium (Albuterol/Iprat 2.5/0.5mg 3 Ml Ampul.Neb) 3 ml INHALE 6XD PRN PRN Reason: Shortness Of Breath Or Wheezing Albuterol/Ipratropium (Albuterol/Iprat 2.5/0.5mg 3 Ml Ampul.Neb) 3 ml INHALE RQ4H WHILE AWAKE [facility] Last Admin: 10/22/22 15:18 Dose: Not Given Documented By: MEL Non-Admin Reason: Patient Asleep Amiodarone HCl (Amiodarone Hcl 200 Mg Tablet) 200 mg PO DAILY [facility] Last Admin: 10/22/22 09:46 Dose: 200 mg Documented By: JIM Apixaban (Apixaban 5 Mg Tablet) 5 mg PO BID@0600,1800 [facility] Last Admin: 10/22/22 06:05 Dose: 5 mg Documented By: LEN Atorvastatin Calcium (Atorvastatin Calcium 40 Mg Tablet) 40 mg PO DAILY [facility] Last Admin: 10/22/22 09:46 Dose: 40 mg Documented By: JIM Benzocaine (Throat Lozenge, Medicated Lozenge) 1 lozenge MUCOUS MEM Q2H PRN PRN Reason: Sore Throat Last Admin: 10/20/22 16:17 Dose: 1 lozenge Documented By: JIM Benzonatate (Benzonatate 100 Mg Capsule) 200 mg PO TID PRN PRN Reason: cough Last Admin: 10/20/22 21:34 Dose: 200 mg Documented By: DONNELL Bumetanide (Bumetanide 1 Mg Tablet) 1 mg PO BID@0800,1700 [facility]; Protocol Bupropion HCl (Bupropion Hcl Xl 150 Mg Tab.Er.24h) 150 mg PO DAILY [facility] Last Admin: 10/22/22 09:46 Dose: 150 mg Documented By: JIM Carvedilol (Carvedilol 6.25 Mg Tablet) 6.25 mg PO BID [facility]; Protocol Last Admin: 10/22/22 09:47 Dose: 6.25 mg Documented By: JIM Cyclobenzaprine HCl (Cyclobenzaprine Hcl 10 Mg Tablet) 10 mg PO BID [facility] Last Admin: 10/22/22 09:46 Dose: 10 mg Documented By: JIM Dextrose (Dextrose 50 % 25 Gm/50 Ml Syringe) 25 gm IVPUSH Q15M PRN; Protocol PRN Reason: per Hypoglycemia Standing Ord. Empagliflozin (Empagliflozin 10 Mg Tablet) 10 mg PO DAILY [facility] Last Admin: 10/22/22 09:46 Dose: 10 mg Documented By: JIM Glucose (Glucose Gel 15 Gm Gel..Gram.) 15 gm PO Q15M PRN; Protocol PRN Reason: per Hypoglycemia Standing Ord. Guaifenesin/Dextromethorphan (Guaifenesin Dm 100/10/5 Ml 5 Ml Syrup) 5 ml PO Q4H PRN PRN Reason: cough Last Admin: 10/21/22 20:37 Dose: 5 ml Documented By: LEN Insulin Human Lispro (Insulin Lispro 100 Unit/Ml 3 Ml Vial) 0 unit SUBCUT QIDACHS [facility]; Protocol Last Admin: 10/22/22 11:32 Dose: Not Given Documented By: JIM Non-Admin Reason: No Insulin Coverage Losartan Potassium (Losartan Potassium 25 Mg Tablet) 25 mg PO DAILY [facility]; Protocol Last Admin: 10/22/22 09:46 Dose: 25 mg Documented By: JIM Morphine Sulfate (Morphine Sulfate 2 Mg/Ml Cartridge) 2 mg IVPUSH Q4H PRN; Protocol PRN Reason: Pain, Severe (Pain Scale 7-10) Last Admin: 10/21/22 22:25 Dose: 2 mg Documented By: LEN Ondansetron HCl (Ondansetron Hcl 4 Mg/2 Ml Vial) 4 mg IVPUSH Q8H PRN PRN Reason: Nausea and Vomiting Pharmacy Consult (Consult Rx Perform Med Rec) 1 each MISCELLANE ONCE PRN PRN Reason: Consult order Potassium Chloride (Potassium Chloride Er 20 Meq Tab.Er.Prt) 20 meq PO BID [facility] Last Admin: 10/22/22 09:46 Dose: 20 meq Documented By: JIM Prednisone (Prednisone 20 Mg Tablet) 40 mg PO DAILY [facility] Last Admin: 10/22/22 09:46 Dose: 40 mg Documented By: JIM Senna (Sennosides 8.6 Mg Tablet) 17.2 mg PO BEDTIME PRN PRN Reason: Constipation Sodium Chloride (0.9 % Sodium Chloride Flush 3 Ml Syringe) 3 ml IVFLUSH QSHIFT [facility] Last Admin: 10/22/22 09:45 Dose: 3 ml Documented By: JIM Spironolactone (Spironolactone 25 Mg Tablet) 50 mg PO DAILY [facility]; Protocol Last Admin: 10/22/22 09:45 Dose: 50 mg Documented By: JIM Labs CBC & Chem 7: 10/17/22 08:42 10/22/22 06:36 Labs: Laboratory Results - last 24 hr 10/21/22 10/21/22 10/22/22 17:10 20:58 06:36 Anion Gap 19 Estim Creat Clear Calc 55.2 Estimated GFR 40 POC Glucose 201 H 168 H Random Glucose 120 H Calcium 10.2 B-Natriuretic Peptide TSH 1.30 10/22/22 10/22/22 10/22/22 06:36 07:25 11:08 Anion Gap Estim Creat Clear Calc Estimated GFR POC Glucose 129 H 110 Random Glucose Calcium B-Natriuretic Peptide 2397 H TSH Assessment and Plan (1) CHF exacerbation: Status: Acute (2) COVID-19: Status: Acute (3) Nonsustained ventricular tachycardia: Status: Acute Plan 52-year-old male with history of heart failure with reduced ejection fraction last echocardiogram showing EF 15-20%, nonischemic cardiomyopathy, history CVA, chronic low back pain, COPD, hypertension, and SVT with ICD and cardiac pacer in place, history of VFib, who is a current half pack per day cigarette smoker admitted to the hospital for acute CHF and COPD exacerbation with anasarca. # Anasarca 2/2 acute CHF exacerbation with baseline HRrEF Improving Repeated echo showing EF less than 10% with diastolic dysfunction, severely reduced systolic function DC IV Bumex drip Start Bumex 1mg bid Follow BNP strict I&O cardiology input appreciated wean down oxygen as tolerated, consider home O2 eval in morning if still requiring it # contraction alkalosis CO2 level stable Diamox IV Monitor BMP # acute COPD exacerbation likely secondary to COVID-19 CXR negative for pneumonia Changed to p.o. prednisone daily DuoNebs q.4h while awake # NSVT Asymptomatic, patient has ICD Continue amiodarone Correct electrolytes, give potassium and magnesium supplement Follow BMP and magnesium level # Hypokalemia, resolved keep Potassium >4 p.o. replacement Repeat BMP this afternoon # COVID-19 initial diagnosis 10/19 no indication for IV antivirals or Decadron. On Solu-Medrol droplet/contact precautions # hyperbilirubinemia Stable, likely secondary to acute CHF follow CMP # hypertension stable, continue home meds # diabetes hold oral antihyperglycemics low-dose sliding scale insulin diabetic diet # atrial fibrillation-rate controlled continue Eliquis for anticoagulation On hold carvedilol DVT prophylaxis Eliquis Patient requires inpatient stay of overnights due to acute CHF exacerbation with anasarca requiring IV diuresis and close monitoring of fluids for cardiopulmonary decompensation Quality Stroke Does the patient have a stroke diagnosis?: No VTE Prior VTE?: No VTE Risk Level:: Medical - moderate - high VTE Device Contraindication: Treatment Not Indicated VTE Drug Contraindication: N/A - Med Ordered
[2022-10-22 16:02] LABS: Glucose, Whole Blood 148 mg/dL (60-115)
[2022-10-22] MEDS: 0.9 % Sodium Chloride 500 ML IV (16:20)
[2022-10-22] MEDS: Albumin Human 25 % 100 ML IV (17:15)
[2022-10-22] MEDS: Bumetanide 1 MG TABLET PO (17:17)
[2022-10-22 20:07] LABS: Glucose, Whole Blood 148 mg/dL (60-115)
[2022-10-22] MEDS: Albuterol/Iprat 2.5/0.5MG 3 ML AMPUL.NEB INHALE (20:32)
[2022-10-22] MEDS: Benzonatate 100 MG CAPSULE 200 MG PO (22:30)
[2022-10-22] MEDS: Midodrine HCl 5 MG TABLET PO (22:30)
[2022-10-22 22:58] LABS: Anion Gap 17 (12-20); Blood Urea Nitrogen 49 mg/dL (9-16); Calcium 9.4 mg/dL (8.4-10.2); Carbon Dioxide 33 mmol/L (22-29); Chloride 88 mmol/L (96-108); Creatinine Clr Calc Pharmacy 55.5; Estimated Glomerular Filt Rate 40; Glucose Random 153 mg/dL (60-115); Magnesium 2.4 mg/dL (1.6-2.6); Potassium 3.6 mmol/L (3.3-5.1); Sodium 134 mmol/L (135-145)
[2022-10-23] VITALS (10 sets, daily range): BP systolic 90–132; BP diastolic 70–81; PULSE 80–92; RESP 16–24; TEMP 36.1–36.9; O2SAT 79–98
[2022-10-23] MEDS: guaiFENesin DM 100/10/5 ML 5 ML SYRUP PO ×4 (05:06→21:11)
[2022-10-23] MEDS: Apixaban 5 MG TABLET PO ×2 (05:06→17:25)
--- NOTE | 2022-10-23 07:18 | PM.EVENT ---
Event Note Date of Service: 10/23/22 Event Note: Patient hypotensive overnight, had 21 beats of V-tach, asymptomatic. Given 1 dose of midodrine, labs drawn, showed potassium 3.6, magnesium of 2.4 Blood pressure improved with midodrine
[2022-10-23] MEDS: Albuterol/Iprat 2.5/0.5MG 3 ML AMPUL.NEB INHALE ×3 (07:57→19:53)
[2022-10-23 08:01] LABS: Glucose, Whole Blood 111 mg/dL (60-115)
[2022-10-23] MEDS: Amiodarone HCL 200 MG TABLET PO (08:29)
[2022-10-23] MEDS: Potassium Chloride Packet 20 MEQ PACKET 40 MEQ PO ×2 (08:29→10:28)
[2022-10-23] MEDS: Atorvastatin Calcium 40 MG TABLET PO (08:29)
[2022-10-23] MEDS: Empagliflozin 10 MG TABLET PO (08:29)
[2022-10-23] MEDS: 0.9 % Sodium Chloride Flush 3 ML SYRINGE IVFLUSH ×2 (08:29→17:25)
[2022-10-23] MEDS: predniSONE 20 MG TABLET 40 MG PO (08:29)
[2022-10-23] MEDS: buPROPion HCl XL 150 MG TAB.ER.24H PO (08:29)
[2022-10-23 08:59] LABS: Anion Gap 19 (12-20); Blood Urea Nitrogen 44 mg/dL (9-16); Calcium 10.3 mg/dL (8.4-10.2); Carbon Dioxide 32 mmol/L (22-29); Chloride 86 mmol/L (96-108); Creatinine Clr Calc Pharmacy 61.5; Estimated Glomerular Filt Rate 45; Glucose Random 83 mg/dL (60-115); Potassium 4.1 mmol/L (3.3-5.1); Sodium 133 mmol/L (135-145)
[2022-10-23] MEDS: Potassium Chloride ER 20 MEQ TAB.ER.PRT PO ×2 (10:28→21:12)
[2022-10-23 10:42] LABS: B Type Natriuretic Peptide 1493 pg/mL (<100)
--- NOTE | 2022-10-23 10:48 | PM.PNCARD ---
Subjective Subjective Date of Service: 10/23/22 Principal diagnosis: Decompensated CHF Interval history: He states that he is getting chest pain with respiration suggestive pleuritic pain. Having cough. Overall does not feel too good. Review of Systems Review of Systems Yes all other systems are reviewed and are negative Constitutional: Reports as per HPI Eyes: Reports as per HPI Reports as per HPI Cardiovascular: Reports as per HPI, Denies acrocyanosis, Denies cool extremities, Reports chest pain, Denies leg edema, Denies lightheadedness, Denies palpitations and Reports dyspnea Respiratory: Reports as per HPI, Reports no additional respiratory complaints, Reports cough and Reports dyspnea Gastrointestinal: Reports as per HPI and Reports no additional gastrointestinal complaints Genitourinary: Reports no additional male genitourinary complaints and Reports as per HPI Musculoskeletal: Reports no additional musculoskeletal complaints and Reports as per HPI Skin/Breast: Reports system reviewed and no additional complaints, except as docu Reports system reviewed and no additional complaints, except as documented and Reports as per HPI Psychiatric: Reports no additional psychiatric complaints and Reports as per HPI Endocrine: Reports no additional endocrine complaints, Reports as per HPI and Denies palpitations Hematologic/Lymphatic: Reports no additional hematologic/lymphatic complaints and Reports as per HPI Allergic/Immunologic: Reports no additional allergic/immunologic complaints and Reports as per HPI Physical Exam Vital Signs: Last Vital Signs Temp 98.4 F 10/23/22 07:46 Pulse 84 10/23/22 07:46 Resp 18 10/23/22 07:46 BP 90/72 10/23/22 07:46 Pulse Ox 91 L 10/23/22 07:46 O2 Del Method 10/23/22 07:46 O2 Flow Rate 4 10/23/22 07:46 BMI result Body Mass Index 33.8 Const General: comfortable, no acute distress, ill appearing and tired appearing Orientation/consciousness: patient oriented x3 HEENT Other: Unremarkable Head: Yes normal to inspection Neck Neck: Yes normal visual inspection Chest Chest palpation & inspection: normal inspection of the chest Resp Other: Diminished breath sounds. Cardio Palpation: normal PMI Heart sounds: S1 normal heart sound present, S2 normal heart sound present, no gallops, no murmurs and no rubs GI Palpation (GI): Soft to palpation Back/Spine/Pelvis Other: unremarkable Skin General skin exam: no rashes or lesions noted Neuro General: patient oriented x3 Extrem General: Yes normal to inspection and Yes pedal edema (1+) Psych Mental Status: mental status grossly normal Objective Labs and Meds Result diagrams: 10/17/22 08:42 10/23/22 08:15 Lab results: Laboratory Results - last 24 hr 10/22/22 10/22/22 10/22/22 06:36 11:08 15:57 Sodium Potassium Chloride Carbon Dioxide Anion Gap BUN Creatinine Estim Creat Clear Calc Estimated GFR POC Glucose 110 148 H Random Glucose Calcium Magnesium B-Natriuretic Peptide TSH 1.30 10/22/22 10/22/22 10/23/22 20:02 22:31 07:48 Sodium 134 L Potassium 3.6 Chloride 88 L Carbon Dioxide 33 H Anion Gap 17 BUN 49 H Creatinine 1.77 H Estim Creat Clear Calc 55.5 Estimated GFR 40 POC Glucose 148 H 111 Random Glucose 153 H Calcium 9.4 D Magnesium 2.4 B-Natriuretic Peptide TSH 10/23/22 10/23/22 08:15 08:15 Sodium 133 L Potassium 4.1 Chloride 86 L Carbon Dioxide 32 H Anion Gap 19 BUN 44 H Creatinine 1.60 H Estim Creat Clear Calc 61.5 Estimated GFR 45 POC Glucose Random Glucose 83 Calcium 10.3 H D Magnesium B-Natriuretic Peptide 1493 H TSH Progress Note: A&P Assessment and plan (1) Acute on chronic systolic and diastolic heart failure, NYHA class 3: Status: Acute (2) Acute on chronic right heart failure: Status: Acute (3) COVID-19: Status: Acute Plan From the cardiac standpoint, he seems to have improved. Volume status is better than before. However, he is also hypotensive, hypoxic. Hypotension possibly from extensive diuretics. Hence we can hold some of his medications in that regard. With regard to hypoxia, more likely from respiratory as opposed to cardiac. His CT scan from August was quite abnormal and hence that needs to be possibly repeated. Discussed about this with Dr. Stephens; also discussed with Dr. Mckeon yesterday about this. Otherwise, telemetry shows an SVT and of note he has had ventricular fibrillation requiring ICD therapy in the past. Hence continue with amiodarone. Overall, he is still quite ill. There is a high likelihood of and patient is well aware of this. There is a high degree of noncompliance as well and he also continues to have a bad lifestyle including heavy smoking. He is aware of all the consequences but unlikely that he will change. Time Spent With Patient Time: Total time spent is greater than 50% in coordination of care (as documented) at patient's floor/unit and/or counseling patient: 35min. Progress Note: Quality Stroke Does the patient have a stroke diagnosis?: No Procedures Date of Service Date of Service: 10/23/22
[2022-10-23 11:07] LABS: Glucose, Whole Blood 168 mg/dL (60-115)
[2022-10-23] MEDS: Insulin Lispro 100 UNIT/ML 3 ML VIAL SUBCUT (12:11)
--- NOTE | 2022-10-23 13:09 | HO.PM.IMPN ---
Subjective Subjective Date of Service: 10/23/22 Interval History: cc: sob interval history:ongoing sob, weakness Cardiovascular Cardiovascular: Reports no additional cardiovascular complaints Gastrointestinal Gastrointestinal: Reports no additional gastrointestinal complaints Physical Exam Vital Signs: Vital Signs: Last Vital Signs Temp 98.0 F 10/23/22 11:48 Pulse 92 10/23/22 11:48 Resp 20 10/23/22 11:48 BP 117/72 10/23/22 11:48 Pulse Ox 80 L 10/23/22 12:50 O2 Del Method 10/23/22 12:50 O2 Flow Rate 2 10/23/22 12:50 BMI result Body Mass Index 33.8 General: AO X 3, ill appearing Resp: CTA bilateral, no accessory muscles used CVS: S1,S2,RRR GI: soft, non tender, non distended Neuro: motor grossly intact, alert Psych: appropriate affect, appropriate insight Objective Data Active Medications Acetaminophen (Acetaminophen 325 Mg Tablet) 650 mg PO Q6H PRN PRN Reason: Pain, Mild (Pain Scale 1-3) Last Admin: 10/19/22 22:20 Dose: 650 mg Documented By: DYLAN Hydrocodone Bitart/Acetaminophen (Hydrocodone Bit/Acetam 10/325 Tablet) 1 tab PO Q4H PRN PRN Reason: Pain, Severe (Pain Scale 7-10) Last Admin: 10/22/22 06:04 Dose: 1 tab Documented By: LEN Albuterol/Ipratropium (Albuterol/Iprat 2.5/0.5mg 3 Ml Ampul.Neb) 3 ml INHALE 6XD PRN PRN Reason: Shortness Of Breath Or Wheezing Albuterol/Ipratropium (Albuterol/Iprat 2.5/0.5mg 3 Ml Ampul.Neb) 3 ml INHALE RQ4H WHILE AWAKE [facility] Last Admin: 10/23/22 11:40 Dose: Not Given Documented By: MEL Non-Admin Reason: Patient Asleep Amiodarone HCl (Amiodarone Hcl 200 Mg Tablet) 200 mg PO DAILY [facility] Last Admin: 10/23/22 08:29 Dose: 200 mg Documented By: JIM Apixaban (Apixaban 5 Mg Tablet) 5 mg PO BID@0600,1800 [facility] Last Admin: 10/23/22 05:06 Dose: 5 mg Documented By: ROD Atorvastatin Calcium (Atorvastatin Calcium 40 Mg Tablet) 40 mg PO DAILY [facility] Last Admin: 10/23/22 08:29 Dose: 40 mg Documented By: JIM Benzocaine (Throat Lozenge, Medicated Lozenge) 1 lozenge MUCOUS MEM Q2H PRN PRN Reason: Sore Throat Last Admin: 10/20/22 16:17 Dose: 1 lozenge Documented By: JIM Benzonatate (Benzonatate 100 Mg Capsule) 200 mg PO TID PRN PRN Reason: cough Last Admin: 10/22/22 22:30 Dose: 200 mg Documented By: ROD Bupropion HCl (Bupropion Hcl Xl 150 Mg Tab.Er.24h) 150 mg PO DAILY [facility] Last Admin: 10/23/22 08:29 Dose: 150 mg Documented By: JIM Carvedilol (Carvedilol 6.25 Mg Tablet) 6.25 mg PO BID [facility]; Protocol Last Admin: 10/23/22 08:30 Dose: Not Given Documented By: JIM Non-Admin Reason: Physician Held Med Cyclobenzaprine HCl (Cyclobenzaprine Hcl 10 Mg Tablet) 10 mg PO BID [facility] Last Admin: 10/23/22 08:30 Dose: Not Given Documented By: JIM Non-Admin Reason: Physician Held Med Dextrose (Dextrose 50 % 25 Gm/50 Ml Syringe) 25 gm IVPUSH Q15M PRN; Protocol PRN Reason: per Hypoglycemia Standing Ord. Empagliflozin (Empagliflozin 10 Mg Tablet) 10 mg PO DAILY [facility] Last Admin: 10/23/22 08:29 Dose: 10 mg Documented By: JIM Glucose (Glucose Gel 15 Gm Gel..Gram.) 15 gm PO Q15M PRN; Protocol PRN Reason: per Hypoglycemia Standing Ord. Guaifenesin/Dextromethorphan (Guaifenesin Dm 100/10/5 Ml 5 Ml Syrup) 5 ml PO Q4H PRN PRN Reason: cough Last Admin: 10/23/22 12:11 Dose: 5 ml Documented By: JIM Insulin Human Lispro (Insulin Lispro 100 Unit/Ml 3 Ml Vial) 0 unit SUBCUT QIDACHS [facility]; Protocol Last Admin: 10/23/22 12:11 Dose: 2 unit Documented By: JIM Losartan Potassium (Losartan Potassium 25 Mg Tablet) 25 mg PO DAILY [facility]; Protocol Last Admin: 10/23/22 08:30 Dose: Not Given Documented By: JIM Non-Admin Reason: Physician Held Med Morphine Sulfate (Morphine Sulfate 2 Mg/Ml Cartridge) 2 mg IVPUSH Q4H PRN; Protocol PRN Reason: Pain, Severe (Pain Scale 7-10) Last Admin: 10/21/22 22:25 Dose: 2 mg Documented By: LEN Ondansetron HCl (Ondansetron Hcl 4 Mg/2 Ml Vial) 4 mg IVPUSH Q8H PRN PRN Reason: Nausea and Vomiting Pharmacy Consult (Consult Rx Perform Med Rec) 1 each MISCELLANE ONCE PRN PRN Reason: Consult order Potassium Chloride (Potassium Chloride Er 20 Meq Tab.Er.Prt) 20 meq PO BID [facility] Last Admin: 10/23/22 10:28 Dose: 20 meq Documented By: JIM Prednisone (Prednisone 20 Mg Tablet) 40 mg PO DAILY [facility] Last Admin: 10/23/22 08:29 Dose: 40 mg Documented By: JIM Senna (Sennosides 8.6 Mg Tablet) 17.2 mg PO BEDTIME PRN PRN Reason: Constipation Sodium Chloride (0.9 % Sodium Chloride Flush 3 Ml Syringe) 3 ml IVFLUSH QSHIFT [facility] Last Admin: 10/23/22 08:29 Dose: 3 ml Documented By: JIM Spironolactone (Spironolactone 25 Mg Tablet) 50 mg PO DAILY [facility]; Protocol Last Admin: 10/23/22 08:31 Dose: Not Given Documented By: JIM Non-Admin Reason: Physician Held Med Labs CBC & Chem 7: 10/17/22 08:42 10/23/22 08:15 Labs: Laboratory Results - last 24 hr 10/22/22 10/22/22 10/22/22 15:57 20:02 22:31 Anion Gap 17 Estim Creat Clear Calc 55.5 Estimated GFR 40 POC Glucose 148 H 148 H Random Glucose 153 H Calcium 9.4 D Magnesium 2.4 B-Natriuretic Peptide 10/23/22 10/23/22 10/23/22 07:48 08:15 08:15 Anion Gap 19 Estim Creat Clear Calc 61.5 Estimated GFR 45 POC Glucose 111 Random Glucose 83 Calcium 10.3 H D Magnesium B-Natriuretic Peptide 1493 H 10/23/22 10:59 Anion Gap Estim Creat Clear Calc Estimated GFR POC Glucose 168 H Random Glucose Calcium Magnesium B-Natriuretic Peptide Assessment and Plan (1) CHF exacerbation: Status: Acute (2) COVID-19: Status: Acute (3) Nonsustained ventricular tachycardia: Status: Acute Plan 52-year-old male with history of heart failure with reduced ejection fraction last echocardiogram showing EF 15-20%, nonischemic cardiomyopathy, history CVA, chronic low back pain, COPD, hypertension, and SVT with ICD and cardiac pacer in place, history of VFib, who is a current half pack per day cigarette smoker admitted to the hospital for acute CHF and COPD exacerbation with anasarca. acute hyopxic respiratory failure with Anasarca 2/2 acute CHF exacerbation with HRrEF, copd with acute decompensation, and covid 19 Repeated echo showing EF less than 10% with diastolic dysfunction, severely reduced systolic function diuresed 7.5L, hold diuretics for now cardiology input appreciated wean down oxygen as tolerated, consider home O2 eval in morning if still requiring it will get pulm eval, ct chest showing increasing pulm nodules continue prednisone, bronchodilators NSVT Asymptomatic, patient has ICD Continue amiodarone Hypokalemia, resolved keep Potassium >4 p.o. replacement Repeat BMP this afternoon COVID-19 initial diagnosis 10/19 no indication for IV antivirals or Decadron. On Solu-Medrol droplet/contact precautions hyperbilirubinemia Stable, likely secondary to acute CHF follow CMP diabetes hold oral antihyperglycemics low-dose sliding scale insulin diabetic diet atrial fibrillation-rate controlled, paroxysmal continue Eliquis for anticoagulation amio DVT prophylaxis Eliquis reason for continued hospitalization:severe hypoxia Quality Stroke Does the patient have a stroke diagnosis?: No VTE Prior VTE?: No VTE Risk Level:: Medical - moderate - high VTE Device Contraindication: Treatment Not Indicated VTE Drug Contraindication: N/A - Med Ordered
--- NOTE | 2022-10-23 15:23 | MHC.CM.PN ---
PER MD ROUNDS, PT NOT MEDICALLY CLEARED FOR DC (SEVERE HYPOXIA) CM WILL CONTINUE TO FOLLOW
[2022-10-23 16:11] LABS: Glucose, Whole Blood 117 mg/dL (60-115)
[2022-10-23] MEDS: Benzonatate 100 MG CAPSULE 200 MG PO (17:25)
[2022-10-23 19:44] LABS: Glucose, Whole Blood 139 mg/dL (60-115)
[2022-10-23] MEDS: Throat Lozenge, Medicated LOZENGE 1 LOZENGE MUCOUS MEM ×2 (21:11→23:47)
[2022-10-23] MEDS: Cyclobenzaprine HCl 10 MG TABLET PO (21:11)
[2022-10-23] MEDS: Morphine Sulfate 2 MG/ML CARTRIDGE IVPUSH (21:20)
[2022-10-23] MEDS: carvediloL 6.25 MG TABLET PO (23:44)
[2022-10-24] VITALS (16 sets, daily range): BP systolic 109–123; BP diastolic 75–93; PULSE 82–96; RESP 16–24; TEMP 36.1–36.7; O2SAT 94–100
[2022-10-24] MEDS: guaiFENesin DM 100/10/5 ML 5 ML SYRUP PO ×3 (01:22→16:14)
[2022-10-24] MEDS: Morphine Sulfate 2 MG/ML CARTRIDGE IVPUSH ×3 (01:22→16:14)
[2022-10-24] MEDS: Apixaban 5 MG TABLET PO ×2 (04:48→17:28)
[2022-10-24] MEDS: Throat Lozenge, Medicated LOZENGE 1 LOZENGE MUCOUS MEM (04:56)
[2022-10-24] MEDS: Albuterol/Iprat 2.5/0.5MG 3 ML AMPUL.NEB INHALE ×3 (05:15→16:04)
[2022-10-24 06:09] LABS: ABG Base Excess -1.7 mmol/L; ABG HCO3 22 mmol/L (22-26); ABG pCO2 35 mmHg (32-45); ABG pO2 83 mmHg (83-108)
[2022-10-24 06:26] LABS: ABG Refer to POC result
[2022-10-24 06:58] LABS: Mean Corpuscular HGB Conc 32.7 g/dl (31.0-36.0); Mean Corpuscular Hemoglobin 29.7 pg (27.0-33.0); Mean Corpuscular Volume 91.1 fL (80.0-98.0); Mean Platelet Volume 10.1 fL (9.4-12.4); Platelet Count 374 X10*3/uL (160-400); Red Blood Count 5.38 X10*6/uL (4.60-5.80); White Blood Count 10.8 X10*3/uL (4.8-10.8)
[2022-10-24 08:21] LABS: Anion Gap 22 (12-20); Blood Urea Nitrogen 51 mg/dL (9-16); Carbon Dioxide 24 mmol/L (22-29); Chloride 92 mmol/L (96-108); Creatinine Clr Calc Pharmacy 57.2; Estimated Glomerular Filt Rate 42; Glucose Fasting 68 mg/dL (60-99); Potassium 6.3 mmol/L (3.3-5.1); Sodium 132 mmol/L (135-145)
[2022-10-24 08:39] LABS: Glucose, Whole Blood 74 mg/dL (60-115)
[2022-10-24] MEDS: Atorvastatin Calcium 40 MG TABLET PO (08:59)
[2022-10-24] MEDS: Sodium Polystyrene Sulfon/Sorb 15 GM/60 ML ORAL.SUSP 30 GM PO (08:59)
[2022-10-24] MEDS: Cyclobenzaprine HCl 10 MG TABLET PO ×2 (08:59→20:16)
[2022-10-24] MEDS: carvediloL 6.25 MG TABLET PO ×2 (09:00→20:17)
[2022-10-24] MEDS: Amiodarone HCL 200 MG TABLET PO (09:00)
[2022-10-24] MEDS: buPROPion HCl XL 150 MG TAB.ER.24H PO (09:00)
[2022-10-24] MEDS: Empagliflozin 10 MG TABLET PO (09:00)
[2022-10-24] MEDS: predniSONE 20 MG TABLET 40 MG PO (09:00)
[2022-10-24] MEDS: 0.9 % Sodium Chloride Flush 3 ML SYRINGE IVFLUSH ×3 (09:19→15:51)
--- NOTE | 2022-10-24 10:12 | HO.PM.IMPN ---
Subjective Subjective Date of Service: 10/24/22 Interval History: cc: sob interval history:ongoing sob, weakness Cardiovascular Cardiovascular: Reports no additional cardiovascular complaints Gastrointestinal Gastrointestinal: Reports no additional gastrointestinal complaints Physical Exam Vital Signs: Vital Signs: Last Vital Signs Temp 98.0 F 10/24/22 08:00 Pulse 85 10/24/22 08:03 Resp 20 10/24/22 08:03 BP 115/83 10/24/22 08:00 Pulse Ox 98 10/24/22 08:00 O2 Del Method 10/24/22 08:00 O2 Flow Rate 1 10/24/22 08:00 BMI result Body Mass Index 33.8 General: AO X 3, ill appearing Resp: CTA bilateral, no accessory muscles used CVS: S1,S2,RRR GI: soft, non tender, non distended Neuro: motor grossly intact, alert Psych: appropriate affect, appropriate insight Objective Data Active Medications Acetaminophen (Acetaminophen 325 Mg Tablet) 650 mg PO Q6H PRN PRN Reason: Pain, Mild (Pain Scale 1-3) Last Admin: 10/19/22 22:20 Dose: 650 mg Documented By: ANTBILL Hydrocodone Bitart/Acetaminophen (Hydrocodone Bit/Acetam 10/325 Tablet) 1 tab PO Q4H PRN PRN Reason: Pain, Severe (Pain Scale 7-10) Last Admin: 10/22/22 06:04 Dose: 1 tab Documented By: LEN Albuterol/Ipratropium (Albuterol/Iprat 2.5/0.5mg 3 Ml Ampul.Neb) 3 ml INHALE 6XD PRN PRN Reason: Shortness Of Breath Or Wheezing Last Admin: 10/24/22 05:15 Dose: 3 ml Documented By: JOSEMANUEL Albuterol/Ipratropium (Albuterol/Iprat 2.5/0.5mg 3 Ml Ampul.Neb) 3 ml INHALE RQ4H WHILE AWAKE [facility] Last Admin: 10/24/22 08:02 Dose: 3 ml Documented By: KATIA Amiodarone HCl (Amiodarone Hcl 200 Mg Tablet) 200 mg PO DAILY [facility] Last Admin: 10/24/22 09:00 Dose: 200 mg Documented By: NANDO Apixaban (Apixaban 5 Mg Tablet) 5 mg PO BID@0600,1800 [facility] Last Admin: 10/24/22 04:48 Dose: 5 mg Documented By: LYNDSAY Atorvastatin Calcium (Atorvastatin Calcium 40 Mg Tablet) 40 mg PO DAILY [facility] Last Admin: 10/24/22 08:59 Dose: 40 mg Documented By: NANDO Benzocaine (Throat Lozenge, Medicated Lozenge) 1 lozenge MUCOUS MEM Q2H PRN PRN Reason: Sore Throat Last Admin: 10/24/22 04:56 Dose: 1 lozenge Documented By: LYNDSAY Benzonatate (Benzonatate 100 Mg Capsule) 200 mg PO TID PRN PRN Reason: cough Last Admin: 10/23/22 17:25 Dose: 200 mg Documented By: JIM Bupropion HCl (Bupropion Hcl Xl 150 Mg Tab.Er.24h) 150 mg PO DAILY [facility] Last Admin: 10/24/22 09:00 Dose: 150 mg Documented By: NANDO Carvedilol (Carvedilol 6.25 Mg Tablet) 6.25 mg PO BID [facility]; Protocol Last Admin: 10/24/22 09:00 Dose: 6.25 mg Documented By: NANDO Cyclobenzaprine HCl (Cyclobenzaprine Hcl 10 Mg Tablet) 10 mg PO BID [facility] Last Admin: 10/24/22 08:59 Dose: 10 mg Documented By: NANDO Dextrose (Dextrose 50 % 25 Gm/50 Ml Syringe) 25 gm IVPUSH Q15M PRN; Protocol PRN Reason: per Hypoglycemia Standing Ord. Empagliflozin (Empagliflozin 10 Mg Tablet) 10 mg PO DAILY [facility] Last Admin: 10/24/22 09:00 Dose: 10 mg Documented By: NANDO Glucose (Glucose Gel 15 Gm Gel..Gram.) 15 gm PO Q15M PRN; Protocol PRN Reason: per Hypoglycemia Standing Ord. Guaifenesin/Dextromethorphan (Guaifenesin Dm 100/10/5 Ml 5 Ml Syrup) 5 ml PO Q4H PRN PRN Reason: cough Last Admin: 10/24/22 05:37 Dose: 5 ml Documented By: LYNDSAY Insulin Human Lispro (Insulin Lispro 100 Unit/Ml 3 Ml Vial) 0 unit SUBCUT QIDACHS [facility]; Protocol Last Admin: 10/24/22 08:40 Dose: Not Given Documented By: NANDO Non-Admin Reason: No Insulin Coverage Morphine Sulfate (Morphine Sulfate 2 Mg/Ml Cartridge) 2 mg IVPUSH Q4H PRN; Protocol PRN Reason: Pain, Severe (Pain Scale 7-10) Last Admin: 10/24/22 05:37 Dose: 2 mg Documented By: LYNDSAY Ondansetron HCl (Ondansetron Hcl 4 Mg/2 Ml Vial) 4 mg IVPUSH Q8H PRN PRN Reason: Nausea and Vomiting Pharmacy Consult (Consult Rx Perform Med Rec) 1 each MISCELLANE ONCE PRN PRN Reason: Consult order Prednisone (Prednisone 20 Mg Tablet) 40 mg PO DAILY [facility] Last Admin: 10/24/22 09:00 Dose: 40 mg Documented By: NANDO Senna (Sennosides 8.6 Mg Tablet) 17.2 mg PO BEDTIME PRN PRN Reason: Constipation Sodium Chloride (0.9 % Sodium Chloride Flush 3 Ml Syringe) 3 ml IVFLUSH QSHIFT [facility] Last Admin: 10/24/22 09:19 Dose: 3 ml Documented By: NANDO Labs CBC & Chem 7: 10/24/22 06:32 10/24/22 06:32 Labs: Laboratory Results - last 24 hr 10/23/22 10/23/22 10/23/22 08:15 10:59 16:07 MCV MCH MCHC RDW Plt Count MPV Absolute Nucleated RBC Nucleated RBC % (auto) O2 Saturation ABG pH at Pt Temp ABG pCO2 at Pt Temp ABG pO2 at Pt Temp ABG HCO3 ABG Base Excess (Actual) Anion Gap Estim Creat Clear Calc Estimated GFR POC Glucose 168 H 117 H Fasting Glucose Calcium B-Natriuretic Peptide 1493 H 10/23/22 10/24/22 10/24/22 19:40 06:02 06:32 MCV 91.1 MCH 29.7 MCHC 32.7 RDW 19.0 H Plt Count 374 D MPV 10.1 Absolute Nucleated RBC 0.000 Nucleated RBC % (auto) 0.0 O2 Saturation 94.0 ABG pH at Pt Temp 7.40 ABG pCO2 at Pt Temp 35 ABG pO2 at Pt Temp 83 ABG HCO3 22 ABG Base Excess (Actual) -1.7 Anion Gap Estim Creat Clear Calc Estimated GFR POC Glucose 139 H Fasting Glucose Calcium B-Natriuretic Peptide 10/24/22 10/24/22 06:32 08:15 MCV MCH MCHC RDW Plt Count MPV Absolute Nucleated RBC Nucleated RBC % (auto) O2 Saturation ABG pH at Pt Temp ABG pCO2 at Pt Temp ABG pO2 at Pt Temp ABG HCO3 ABG Base Excess (Actual) Anion Gap 22 H Estim Creat Clear Calc 57.2 Estimated GFR 42 POC Glucose 74 Fasting Glucose 68 Calcium 10.0 B-Natriuretic Peptide Assessment and Plan (1) CHF exacerbation: Status: Acute (2) COVID-19: Status: Acute (3) Nonsustained ventricular tachycardia: Status: Acute Plan 52-year-old male with history of heart failure with reduced ejection fraction last echocardiogram showing EF 15-20%, nonischemic cardiomyopathy, history CVA, chronic low back pain, COPD, hypertension, and SVT with ICD and cardiac pacer in place, history of VFib, who is a current half pack per day cigarette smoker admitted to the hospital for acute CHF and COPD exacerbation with anasarca. acute hyopxic respiratory failure with Anasarca 2/2 acute CHF exacerbation with HRrEF, copd with acute decompensation, and covid 19 Repeated echo showing EF less than 10% with diastolic dysfunction, severely reduced systolic function diuresed 7.5L, hold diuretics for now cardiology input appreciated wean down oxygen as tolerated, consider home O2 eval in morning if still requiring it will get pulm eval continue prednisone, bronchodilators hyperkalemia holding aldactone, losartan, K supplements giving kayexylate monitor NSVT Asymptomatic, patient has ICD Continue amiodarone Hypokalemia, resolved now hyperkalemic COVID-19 initial diagnosis 10/19 no indication for IV antivirals or Decadron. On Solu-Medrol droplet/contact precautions hyperbilirubinemia Stable, likely secondary to acute CHF follow CMP diabetes hold oral antihyperglycemics low-dose sliding scale insulin diabetic diet atrial fibrillation-rate controlled, paroxysmal continue Eliquis for anticoagulation amio DVT prophylaxis Eliquis reason for continued hospitalization:severe hypoxia Quality Stroke Does the patient have a stroke diagnosis?: No VTE Prior VTE?: No VTE Risk Level:: Medical - moderate - high VTE Device Contraindication: Treatment Not Indicated VTE Drug Contraindication: N/A - Med Ordered
--- NOTE | 2022-10-24 11:32 | PM.CNPUL ---
History of Present Illness History of Present Illness Consult date: 10/24/22 Chief complaint: CHF exacerbation, anasarca Narrative: This is an inpatient pulmonary consultation. The patient is a 52-year-old male with history of heart failure with reduced ejection fraction last echocardiogram showing EF 15-20%, nonischemic cardiomyopathy, history CVA, chronic low back pain, COPD, hypertension, and SVT with ICD and cardiac pacer in place, history of VFib presented to the ED this morning complaining of shortness of breath, dyspnea on exertion, nonproductive cough, bilateral lower extremity edema that has been worsening over the last week.? States the swelling has been so severe today that he was unable to get his shoes and socks on.? He is also reporting diffuse pleuritic chest pain as well as urinary retention and decreased urinary output, headache, anorexia.? He did present to the ED with similar symptoms on 10/09 and was diagnosed with COVID-19 on that date but was unaware of this diagnosis.? On arrival, patient tachycardic to 100, tachypneic to 24.? Patient is afebrile without hypotension or hypoxia.? No leukocytosis.? Stable normocytic anemia.? Renal function baseline.? Sodium 134, potassium 3.7, chloride 89, CO2 33, anion gap 16, glucose 173.? Total bilirubin 3.1.? AST 34, ALT 20.? ? Patient to be admitted for acute CHF exacerbation with anasarca and COVID 19. The patient was placed on oxygen and also get a steroids. The patient still has not been able to get off the oxygen. He is requiring about 2 L nasal cannula. In view of his oxygen requirements the patient did have a CT scan of the chest demonstrating emphysema, areas of scarring in the left base and some atelectasis along with new pulmonary nodules primarily in the periphery. Following a bronchovascular distribution. They appear to be hazy in appearance suggesting of an inflammatory or infectious process. They do not appear to be consistent with metastatic disease nor septic emboli. Review of Systems Review of Systems: Yes all other systems are reviewed and are negative Constitutional: Constitutional: Reports as per HPI Eyes: Eyes: Reports as per HPI ENT: Reports as per HPI Cardiovascular: Cardiovascular: Reports as per HPI, Denies acrocyanosis, Denies cool extremities, Reports chest pain, Denies leg edema, Denies lightheadedness, Denies palpitations and Reports dyspnea Respiratory: Respiratory: Reports as per HPI, Reports no additional respiratory complaints, Reports cough and Reports dyspnea Gastrointestinal: Gastrointestinal: Reports as per HPI and Reports no additional gastrointestinal complaints Genitourinary: Genitourinary: Reports no additional male genitourinary complaints and Reports as per HPI Musculoskeletal: Musculoskeletal: Reports no additional musculoskeletal complaints and Reports as per HPI Integumentary/Breasts: Skin/Breast: Reports system reviewed and no additional complaints, except as docu Neurologic: Reports system reviewed and no additional complaints, except as documented and Reports as per HPI Psychiatric: Psychiatric: Reports no additional psychiatric complaints and Reports as per HPI Endocrine: Endocrine: Reports no additional endocrine complaints, Reports as per HPI and Denies palpitations Hematologic/Lymphatic: Hematologic/Lymphatic: Reports no additional hematologic/lymphatic complaints and Reports as per HPI Allergic/Immunologic: Allergic/Immunologic: Reports no additional allergic/immunologic complaints and Reports as per HPI [facility] Past Medical History Medical History Acute on chronic systolic heart failure Artificial cardiac pacemaker Back injuries Cardiomyopathy Chronic combined systolic and diastolic CHF, NYHA class 3 COPD (chronic obstructive pulmonary disease) Current use of parts counterman anticoagulation CVA (cerebral vascular accident) History of COPD HTN (hypertension) Hypertension ICD (implantable cardioverter-defibrillator) in place NSVT (nonsustained ventricular tachycardia) Family History Family History Father Prostate cancer Mother No problems noted. Surgical History Surgical History Hx of cardiac cath (~08/2015) Social History Social History Household Members: Other Household Members Other:: 3 OTHER FAMILIES Housing: House Do you presently have visiting nurse or other home services: No Unable to assess alcohol history related to: Unknown Alcohol intake: never Patient Tobacco Use Status: Current someday Tobacco user Tobacco use type: Cigarette Cigarettes Per Day: 5 service: No Current occupational status: disabled Meds Allergies Allergy/AdvReac Type Severity Reaction Status Date / Time sacubitril [From Entresto] AdvReac Rash Verified 08/06/22 21:54 valsartan [From Entresto] AdvReac Rash Verified 03/05/22 13:12 Active Medications: Current Medications Acetaminophen (Acetaminophen 325 Mg Tablet) 650 mg PO Q6H PRN PRN Reason: Pain, Mild (Pain Scale 1-3) Last Admin: 10/19/22 22:20 Dose: 650 mg Hydrocodone Bitart/Acetaminophen (Hydrocodone Bit/Acetam 10/325 Tablet) 1 tab PO Q4H PRN PRN Reason: Pain, Severe (Pain Scale 7-10) Last Admin: 10/22/22 06:04 Dose: 1 tab Albuterol/Ipratropium (Albuterol/Iprat 2.5/0.5mg 3 Ml Ampul.Neb) 3 ml INHALE 6XD PRN PRN Reason: Shortness Of Breath Or Wheezing Last Admin: 10/24/22 05:15 Dose: 3 ml Albuterol/Ipratropium (Albuterol/Iprat 2.5/0.5mg 3 Ml Ampul.Neb) 3 ml INHALE RQ4H WHILE AWAKE [facility] Last Admin: 10/24/22 08:02 Dose: 3 ml Amiodarone HCl (Amiodarone Hcl 200 Mg Tablet) 200 mg PO DAILY [facility] Last Admin: 10/24/22 09:00 Dose: 200 mg Apixaban (Apixaban 5 Mg Tablet) 5 mg PO BID@0600,1800 [facility] Last Admin: 10/24/22 04:48 Dose: 5 mg Atorvastatin Calcium (Atorvastatin Calcium 40 Mg Tablet) 40 mg PO DAILY [facility] Last Admin: 10/24/22 08:59 Dose: 40 mg Benzocaine (Throat Lozenge, Medicated Lozenge) 1 lozenge MUCOUS MEM Q2H PRN PRN Reason: Sore Throat Last Admin: 10/24/22 04:56 Dose: 1 lozenge Benzonatate (Benzonatate 100 Mg Capsule) 200 mg PO TID PRN PRN Reason: cough Last Admin: 10/23/22 17:25 Dose: 200 mg Bupropion HCl (Bupropion Hcl Xl 150 Mg Tab.Er.24h) 150 mg PO DAILY [facility] Last Admin: 10/24/22 09:00 Dose: 150 mg Carvedilol (Carvedilol 6.25 Mg Tablet) 6.25 mg PO BID [facility]; Protocol Last Admin: 10/24/22 09:00 Dose: 6.25 mg Cyclobenzaprine HCl (Cyclobenzaprine Hcl 10 Mg Tablet) 10 mg PO BID [facility] Last Admin: 10/24/22 08:59 Dose: 10 mg Dextrose (Dextrose 50 % 25 Gm/50 Ml Syringe) 25 gm IVPUSH Q15M PRN; Protocol PRN Reason: per Hypoglycemia Standing Ord. Empagliflozin (Empagliflozin 10 Mg Tablet) 10 mg PO DAILY [facility] Last Admin: 10/24/22 09:00 Dose: 10 mg Glucose (Glucose Gel 15 Gm Gel..Gram.) 15 gm PO Q15M PRN; Protocol PRN Reason: per Hypoglycemia Standing Ord. Guaifenesin/Dextromethorphan (Guaifenesin Dm 100/10/5 Ml 5 Ml Syrup) 5 ml PO Q4H PRN PRN Reason: cough Last Admin: 10/24/22 05:37 Dose: 5 ml Insulin Human Lispro (Insulin Lispro 100 Unit/Ml 3 Ml Vial) 0 unit SUBCUT QIDACHS [facility]; Protocol Last Admin: 10/24/22 08:40 Dose: Not Given Morphine Sulfate (Morphine Sulfate 2 Mg/Ml Cartridge) 2 mg IVPUSH Q4H PRN; Protocol PRN Reason: Pain, Severe (Pain Scale 7-10) Last Admin: 10/24/22 05:37 Dose: 2 mg Ondansetron HCl (Ondansetron Hcl 4 Mg/2 Ml Vial) 4 mg IVPUSH Q8H PRN PRN Reason: Nausea and Vomiting Pharmacy Consult (Consult Rx Perform Med Rec) 1 each MISCELLANE ONCE PRN PRN Reason: Consult order Prednisone (Prednisone 20 Mg Tablet) 40 mg PO DAILY [facility] Last Admin: 10/24/22 09:00 Dose: 40 mg Senna (Sennosides 8.6 Mg Tablet) 17.2 mg PO BEDTIME PRN PRN Reason: Constipation Sodium Chloride (0.9 % Sodium Chloride Flush 3 Ml Syringe) 3 ml IVFLUSH QSHIFT [facility] Last Admin: 10/24/22 09:19 Dose: 3 ml Home Medications Medication Instructions Recorded Confirmed Last Taken Type atorvastatin 40 mg tablet 40 mg PO DAILY 06/14/21 10/17/22 08/05/22 History hydrocodone 10 mg-acetaminophen 1 tab PO Q4-6H PRN pain 06/14/21 10/17/22 03/23/22 History 325 mg tablet dapagliflozin 10 mg tablet 10 mg PO DAILY 03/23/22 10/17/22 03/23/22 History (Farxiga) bupropion HCl 150 mg 24 hr tablet, 1 tab PO DAILY 07/12/22 10/17/22 08/05/22 History extended release ipratropium 0.5 mg-albuterol 3 mg 1 amp inhalation 6XD PRN Shortness 07/12/22 10/17/22 Unknown History (2.5 mg base)/3 mL nebulization Of Breath Or Wheezing soln albuterol sulfate 90 mcg/actuation 2 puff inhalation Q6H PRN Dyspnea 08/07/22 10/17/22 Unknown History aerosol inhaler carvedilol 6.25 mg tablet 1 tab PO BID 08/07/22 10/17/22 08/05/22 History losartan 50 mg tablet 0.5 tab PO DAILY 08/07/22 10/17/22 08/05/22 History metolazone 2.5 mg tablet 1 tab PO DAILY 08/07/22 10/17/22 08/05/22 History potassium chloride 20 mEq/15 mL 15 ml PO BID 08/07/22 10/17/22 Unknown History oral liquid methocarbamol 500 mg tablet 1 tab PO BID 10/17/22 10/17/22 Unknown History Physical Exam Vital Signs: Vital Signs: Last Vital Signs Temp 98.0 F 10/24/22 08:00 Pulse 85 10/24/22 08:03 Resp 20 10/24/22 08:03 BP 115/83 10/24/22 08:00 Pulse Ox 98 10/24/22 08:00 O2 Del Method 10/24/22 08:00 O2 Flow Rate 1 10/24/22 08:00 BMI result Body Mass Index 33.8 General: AO X 3, ill appearing Resp: CTA bilateral, no accessory muscles used CVS: S1,S2,RRR GI: soft, non tender, non distended Neuro: motor grossly intact, alert Psych: appropriate affect, appropriate insight Results Laboratory Findings CBC and BMP: 10/24/22 06:32 10/24/22 06:32 Abnormal lab findings: Abnormal Labs 10/17/22 10/17/22 10/17/22 08:42 08:42 08:42 RBC 4.43 L Hgb 13.4 L Hct 41.6 L RDW 19.3 H Neut % (Auto) 79.2 H Lymph % (Auto) 11.2 L Lymph # (Auto) 0.9 L Sodium 134 L Potassium Chloride 89 L Carbon Dioxide 33 H Anion Gap BUN 18 H Creatinine POC Glucose Random Glucose 173 H Calcium Total Bilirubin 3.1 H B-Natriuretic Peptide 2578 H Albumin Urine Protein Ur Leukocyte Esterase COVID-19 ([facility]) 10/17/22 10/17/22 10/17/22 11:39 17:15 18:25 RBC Hgb Hct RDW Neut % (Auto) Lymph % (Auto) Lymph # (Auto) Sodium Potassium Chloride Carbon Dioxide Anion Gap BUN Creatinine POC Glucose 141 H Random Glucose Calcium Total Bilirubin B-Natriuretic Peptide Albumin Urine Protein 30 (1+) H Ur Leukocyte Esterase Trace H COVID-19 ([facility]) Positive A 10/17/22 10/18/22 10/18/22 20:49 05:59 05:59 RBC Hgb Hct RDW Neut % (Auto) Lymph % (Auto) Lymph # (Auto) Sodium Potassium Chloride 92 L Carbon Dioxide 30 H Anion Gap BUN 21 H Creatinine POC Glucose 178 H Random Glucose 124 H Calcium Total Bilirubin 2.8 H B-Natriuretic Peptide 3028 H Albumin 3.1 L Urine Protein Ur Leukocyte Esterase COVID-19 ([facility]) 10/18/22 10/18/22 10/18/22 07:17 13:22 17:34 RBC Hgb Hct RDW Neut % (Auto) Lymph % (Auto) Lymph # (Auto) Sodium Potassium Chloride Carbon Dioxide Anion Gap BUN Creatinine POC Glucose 143 H 224 H 171 H Random Glucose Calcium Total Bilirubin B-Natriuretic Peptide Albumin Urine Protein Ur Leukocyte Esterase COVID-19 ([facility]) 10/18/22 10/19/22 10/19/22 19:53 07:19 07:19 RBC Hgb Hct RDW Neut % (Auto) Lymph % (Auto) Lymph # (Auto) Sodium Potassium 2.8 L Chloride 84 L Carbon Dioxide 37 H Anion Gap BUN 27 H Creatinine 1.51 H POC Glucose 177 H Random Glucose 158 H Calcium Total Bilirubin 2.4 H B-Natriuretic Peptide 2772 H Albumin Urine Protein Ur Leukocyte Esterase COVID-19 ([facility]) 10/19/22 10/19/22 10/19/22 07:23 11:00 17:04 RBC Hgb Hct RDW Neut % (Auto) Lymph % (Auto) Lymph # (Auto) Sodium Potassium Chloride 81 L Carbon Dioxide 41 H* Anion Gap BUN 29 H Creatinine 1.71 H POC Glucose 162 H 147 H Random Glucose Calcium Total Bilirubin B-Natriuretic Peptide Albumin Urine Protein Ur Leukocyte Esterase COVID-19 ([facility]) 10/19/22 10/20/22 10/20/22 19:25 06:51 06:51 RBC Hgb Hct RDW Neut % (Auto) Lymph % (Auto) Lymph # (Auto) Sodium Potassium 3.2 L Chloride 81 L Carbon Dioxide 42 H* Anion Gap BUN 35 H Creatinine 1.67 H POC Glucose 133 H Random Glucose Calcium Total Bilirubin 2.1 H B-Natriuretic Peptide 1643 H Albumin Urine Protein Ur Leukocyte Esterase COVID-19 ([facility]) 10/20/22 10/21/22 10/21/22 15:55 06:07 06:07 RBC Hgb Hct RDW Neut % (Auto) Lymph % (Auto) Lymph # (Auto) Sodium Potassium Chloride 80 L Carbon Dioxide 43 H* Anion Gap BUN 40 H Creatinine 1.74 H POC Glucose 117 H Random Glucose 139 H Calcium Total Bilirubin B-Natriuretic Peptide 1589 H Albumin Urine Protein Ur Leukocyte Esterase COVID-19 ([facility]) 10/21/22 10/21/22 10/22/22 17:10 20:58 06:36 RBC Hgb Hct RDW Neut % (Auto) Lymph % (Auto) Lymph # (Auto) Sodium Potassium Chloride 82 L Carbon Dioxide 38 H Anion Gap BUN 46 H D Creatinine 1.78 H POC Glucose 201 H 168 H Random Glucose 120 H Calcium Total Bilirubin B-Natriuretic Peptide Albumin Urine Protein Ur Leukocyte Esterase COVID-19 ([facility]) 10/22/22 10/22/22 10/22/22 06:36 07:25 15:57 RBC Hgb Hct RDW Neut % (Auto) Lymph % (Auto) Lymph # (Auto) Sodium Potassium Chloride Carbon Dioxide Anion Gap BUN Creatinine POC Glucose 129 H 148 H Random Glucose Calcium Total Bilirubin B-Natriuretic Peptide 2397 H Albumin Urine Protein Ur Leukocyte Esterase COVID-19 ([facility]) 10/22/22 10/22/22 10/23/22 20:02 22:31 08:15 RBC Hgb Hct RDW Neut % (Auto) Lymph % (Auto) Lymph # (Auto) Sodium 134 L 133 L Potassium Chloride 88 L 86 L Carbon Dioxide 33 H 32 H Anion Gap BUN 49 H 44 H Creatinine 1.77 H 1.60 H POC Glucose 148 H Random Glucose 153 H Calcium 10.3 H D Total Bilirubin B-Natriuretic Peptide Albumin Urine Protein Ur Leukocyte Esterase COVID-19 ([facility]) 10/23/22 10/23/22 10/23/22 08:15 10:59 16:07 RBC Hgb Hct RDW Neut % (Auto) Lymph % (Auto) Lymph # (Auto) Sodium Potassium Chloride Carbon Dioxide Anion Gap BUN Creatinine POC Glucose 168 H 117 H Random Glucose Calcium Total Bilirubin B-Natriuretic Peptide 1493 H Albumin Urine Protein Ur Leukocyte Esterase COVID-19 ([facility]) 10/23/22 10/24/22 10/24/22 19:40 06:32 06:32 RBC Hgb Hct RDW 19.0 H Neut % (Auto) Lymph % (Auto) Lymph # (Auto) Sodium 132 L Potassium 6.3 H* D Chloride 92 L Carbon Dioxide Anion Gap 22 H BUN 51 H Creatinine 1.72 H POC Glucose 139 H Random Glucose Calcium Total Bilirubin B-Natriuretic Peptide Albumin Urine Protein Ur Leukocyte Esterase COVID-19 ([facility]) Diagnostic Findings Additional studies: Assessment and Plan (1) Acute on chronic right heart failure: Status: Acute (2) Lung nodules: Status: Acute (3) COPD exacerbation: Status: Acute (4) Acute respiratory failure: Status: Acute Plan The patient continues to have persistent hypoxia. He does have severe heart disease and now with COVID and also underlying COPD. Ultimately, the patient may need to stay on some oxygen even after discharge. He is already aggressively diuresed. Will optimize his respiratory medications. His lymphadenopathy has improved although now he has new pulmonary nodules. Although this also may be a manifestation of his viral infection. He will need to follow-up as an outpatient. REC start Breo, spiriva continue nebulized therapy as needed Prednisone 40mg with taper diuresis as tolerated Will likely need oxygen upon discharge will need outpt f/u for new pulmonary nodules Procedures Date of Service Date of Service: 10/24/22
[2022-10-24 12:10] LABS: Glucose, Whole Blood 125 mg/dL (60-115)
[2022-10-24 14:44] LABS: Potassium 4.5 mmol/L (3.3-5.1)
[2022-10-24 16:03] LABS: Glucose, Whole Blood 130 mg/dL (60-115)
[2022-10-24] MEDS: Benzonatate 100 MG CAPSULE 200 MG PO (17:28)
[2022-10-24 20:02] LABS: Glucose, Whole Blood 216 mg/dL (60-115)
[2022-10-24] MEDS: Insulin Lispro 100 UNIT/ML 3 ML VIAL SUBCUT (20:16)
[2022-10-25] MEDS: 0.9 % Sodium Chloride Flush 3 ML SYRINGE IVFLUSH ×2 (00:26→08:51)
[2022-10-25 02:43] VITALS: BP 112/78; PULSE 81; RESP 16; TEMP 36.8; O2SAT 94
[2022-10-25] MEDS: Apixaban 5 MG TABLET PO (05:33)
[2022-10-25 06:24] LABS: Hematocrit 44.4 % (42.0-52.0); Hemoglobin 14.6 g/dl (14.0-18.0); Mean Corpuscular HGB Conc 32.9 g/dl (31.0-36.0); Mean Corpuscular Volume 91.4 fL (80.0-98.0); Mean Platelet Volume 10.2 fL (9.4-12.4); Platelet Count 342 X10*3/uL (160-400); Red Blood Count 4.86 X10*6/uL (4.60-5.80); Red Cell Distribution Width 18.5 % (11.0-16.0); White Blood Count 9.8 X10*3/uL (4.8-10.8)
[2022-10-25 06:49] LABS: Anion Gap 17 (12-20); Blood Urea Nitrogen 45 mg/dL (9-16); Calcium 9.6 mg/dL (8.4-10.2); Carbon Dioxide 27 mmol/L (22-29); Chloride 91 mmol/L (96-108); Creatinine Clr Calc Pharmacy 66.4; Estimated Glomerular Filt Rate 50; Glucose Fasting 82 mg/dL (60-99); Potassium 4.1 mmol/L (3.3-5.1); Sodium 131 mmol/L (135-145)
[2022-10-25 07:10] VITALS: BP 125/85; PULSE 85; RESP 16; TEMP 36.9; O2SAT 95
[2022-10-25 07:20] LABS: Glucose, Whole Blood 86 mg/dL (60-115)
[2022-10-25] MEDS: Fluticasone/Vilanterol 200/25 BLST.W.DEV 1 PUFF INHALE (08:00)
[2022-10-25 08:02] VITALS: PULSE 82; RESP 20; O2SAT 98
[2022-10-25] MEDS: Spironolactone 25 MG TABLET 50 MG PO (08:51)
[2022-10-25] MEDS: Amiodarone HCL 200 MG TABLET PO (08:51)
[2022-10-25] MEDS: Cyclobenzaprine HCl 10 MG TABLET PO (08:51)
[2022-10-25] MEDS: Empagliflozin 10 MG TABLET PO (08:51)
[2022-10-25] MEDS: buPROPion HCl XL 150 MG TAB.ER.24H PO (08:52)
[2022-10-25] MEDS: predniSONE 20 MG TABLET 40 MG PO (08:52)
[2022-10-25] MEDS: Losartan Potassium 25 MG TABLET PO (08:52)
[2022-10-25] MEDS: Atorvastatin Calcium 40 MG TABLET PO (08:52)
[2022-10-25] MEDS: carvediloL 6.25 MG TABLET PO (08:52)
[2022-10-25] MEDS: Morphine Sulfate 2 MG/ML CARTRIDGE IVPUSH (09:06)
[2022-10-25 10:13] VITALS: PULSE 95; PULSE 99; O2SAT 90; O2SAT 93; O2SAT 98
[2022-10-25 11:10] VITALS: BP 135/74; PULSE 87; RESP 18; TEMP 37.2; O2SAT 98
[2022-10-25 11:30] LABS: Glucose, Whole Blood 114 mg/dL (60-115)
--- NOTE | 2022-10-25 12:19 | P.DS_ITS ---
DS: Providers Provider Date of Service: 10/25/22 Date of admission: 10/17/22 15:34 Primary care physician: Ning Muniz MD Consults: 10/17/22 16:02 Consult to Cardiology Routine Consulting Provider: Bud Collado Reason for consultation: chf exacerbation, anasarca 10/23/22 13:06 Consult to Pulmonology Routine Consulting Provider: Cooper Burnett Reason for consultation: hypoxia, covid, copd, pulm nodules DS: Diagnosis Discharge Diagnosis (1) Acute on chronic right heart failure: Status: Acute (2) Lung nodules: Status: Acute (3) COPD exacerbation: Status: Acute (4) Acute respiratory failure: Status: Acute DS: Summary Hospital Course Hospital Course: from initial hpi: Chief Complaint: sob, edema 52-year-old male with history of heart failure with reduced ejection fraction last echocardiogram showing EF 15-20%, nonischemic cardiomyopathy, history CVA, chronic low back pain, COPD, hypertension, and SVT with ICD and cardiac pacer in place, history of VFib presented to the ED this morning complaining of shortness of breath, dyspnea on exertion, nonproductive cough, bilateral lower extremity edema that has been worsening over the last week.? States the swelling has been so severe today that he was unable to get his shoes and socks on.? He is also reporting diffuse pleuritic chest pain as well as urinary retention and decreased urinary output, headache, anorexia.? He did present to the ED with similar symptoms on 10/09 and was diagnosed with COVID-19 on that date but was unaware of this diagnosis.? He did again test positive for COVID-19 today.? On arrival, patient tachycardic to 100, tachypneic to 24.? Patient is afebrile without hypotension or hypoxia.? No leukocytosis.? Stable normocytic anemia.? Renal function baseline.? Sodium 134, potassium 3.7, chloride 89, CO2 33, anion gap 16, glucose 173.? Total bilirubin 3.1.? AST 34, ALT 20.? Denies any alcohol use in the last 10 years.? No illicit drug use.? He is an everyday smoker.? CXR is negative for any acute cardiopulmonary process.? BNP 2578.? Troponin 16.7.? Despite negative chest x-ray, patient is quite fluid overloaded with anasarca.? Given 60 mg IV Lasix along with KCl 40 mEq.? Patient to be admitted for acute CHF exacerbation with anasarca and COVID 19. hospital course: Patient was admitted for acute hypoxic respiratory failure with anasarca secondary to acute on chronic systolic CHF and COPD with acute decompensation in the setting of COVID-19 infection. Patient was diuresed well, he is -7.5 L during hospitalization. He had repeat echo which showed EF of less than 10% with diastolic dysfunction and severely reduced systolic function. He was treated with steroids and bronchodilators. he was eventually able to be weaned off of oxygen and did not require home O2 on evaluation. Patient had Both hypokalemia and hyperkalemia during hospitalization. This was corrected and is within normal limits at time of discharge. Patient has known history of an SVT and has ICD in place. He will continue on amiodarone. firs COVID-19 infection he was not given antivirals, he was treated with steroids due to hypoxia and COPD exacerbation. For his diabetes he will continue on insulin. First paroxysmal atrial fibrillation he was given amiodarone and Eliquis. Patient is feeling better will be discharged home. Time Spent with Patient Time attestation: Total time spent providing and/or coordinating discharge services: Discharge coordination time: Greater than 30 minutes Quality: Safe Use of Opioids Does Pt have an Active Cancer Diagnosis on the Problem List?: No Quality: Stroke Does the patient have a stroke diagnosis?: No Physical Exam Vital Signs: Vital Signs: Last Vital Signs Temp 98.9 F 10/25/22 11:10 Pulse 87 10/25/22 11:10 Resp 18 10/25/22 11:10 BP 135/74 10/25/22 11:10 Pulse Ox 98 10/25/22 11:10 O2 Del Method 10/25/22 11:10 O2 Flow Rate 1 10/25/22 07:10 BMI result Body Mass Index 33.8 General: AO X 3, no acute distress Resp: CTA bilateral, no accessory muscles used CVS: S1,S2,RRR GI: soft, non tender, non distended Neuro: motor grossly intact, alert Psych: appropriate affect, appropriate insight DS: Data Data Completed and Pending Labs on day of discharge: Laboratory Results - last 24 hr 10/24/22 10/24/22 10/24/22 14:19 15:59 19:58 WBC RBC Hgb Hct MCV MCH MCHC RDW Plt Count MPV Absolute Nucleated RBC Nucleated RBC % (auto) Sodium Potassium 4.5 D Chloride Carbon Dioxide Anion Gap BUN Creatinine Estim Creat Clear Calc Estimated GFR POC Glucose 130 H 216 H Fasting Glucose Calcium 10/25/22 10/25/22 10/25/22 06:09 06:09 07:08 WBC 9.8 RBC 4.86 Hgb 14.6 Hct 44.4 MCV 91.4 MCH 30.0 MCHC 32.9 RDW 18.5 H Plt Count 342 MPV 10.2 Absolute Nucleated RBC 0.000 Nucleated RBC % (auto) 0.0 Sodium 131 L Potassium 4.1 Chloride 91 L Carbon Dioxide 27 Anion Gap 17 BUN 45 H Creatinine 1.48 H Estim Creat Clear Calc 66.4 Estimated GFR 50 POC Glucose 86 Fasting Glucose 82 Calcium 9.6 10/25/22 11:08 WBC RBC Hgb Hct MCV MCH MCHC RDW Plt Count MPV Absolute Nucleated RBC Nucleated RBC % (auto) Sodium Potassium Chloride Carbon Dioxide Anion Gap BUN Creatinine Estim Creat Clear Calc Estimated GFR POC Glucose 114 Fasting Glucose Calcium Discharge Plan Discharge Anticipated Discharge Date/Time: 10/25/22 12:17 Patient Disposition: Home, Self-Care Discharge Diagnosis: chf, covid Referrals: Ning Muniz MD [Primary Care Provider] - 1 Week Discharge Medications: New prednisone 20 mg Tablet 40 mg PO DAILY Qty: 10 0RF Continued spironolactone 50 mg tablet 50 mg PO QAM Qty: 30 3RF Rx Instructions: Please call your operator/assistant foreman at [phone] to schedule follow up and to continue receiving refills. amiodarone 200 mg tablet 200 mg PO QAM Qty: 90 2RF atorvastatin 40 mg tablet 40 mg PO DAILY hydrocodone-acetaminophen 10-325 mg tablet 1 tab PO Q4-6H PRN (Reason: pain) Eliquis 5 mg Tablet 5 mg PO BID@0600,1800 Qty: 60 0RF losartan 50 mg tablet 0.5 tab PO DAILY metolazone 2.5 mg tablet 1 tab PO DAILY potassium chloride 20 mEq/15 mL liquid 15 ml PO BID Label Comments: dilute in 120 ml of juice or cold water albuterol sulfate 90 mcg/actuation HFA aerosol inhaler 2 puff inhalation Q6H PRN (Reason: Dyspnea) carvedilol 6.25 mg tablet 1 tab PO BID methocarbamol 500 mg tablet 1 tab PO BID ipratropium-albuterol 0.5 mg-3 mg(2.5 mg base)/3 mL solution for nebulization 1 amp inhalation 6XD PRN (Reason: Shortness Of Breath Or Wheezing) bupropion HCl 150 mg tablet extended release 24 hr 1 tab PO DAILY Discontinued Farxiga 10 mg tablet 10 mg PO DAILY Rx Instructions: PATIENT STATES HE ONLY TAKES 2 -3 TIMES A WEEK FOR HEART FAILURE Discharge Orders: Discharge Order (Routine); Ordered 10/25/22 Ordered By: Rk Stephens Diet: Advance to usual diet Activity on Discharge: As tolerated Stand Alone Forms: Patient Portal Discharge page Care Plan Goals: recovery Health Concerns: chf, copd Plan of Treatment: continue meds as prescribed, follow up cardio, pulm, 5 more days prednisone Assessment: see above
--- NOTE | 2022-10-25 12:22 | MHC.CM.PN ---
PT TO DC HOME TODAY WITH NO SERVICES FAMILY TO [facility]
== END 2022-10-25 14:31 | disposition home or self-care (01) | DRG 291 ==
LOC: HO.ED 12:17 → HO.EDOVER 16:19 → HO.IMC 10-18 15:19
PROVIDERS: Internal Medicine; Physician Assistant; Student in an Organized Health Care Education/Training Program; Admitting Provider Physician Assistant; Emergency Provider Emergency Medicine Emergency Medical Services; PCP Student in an Organized Health Care Education/Training Program; Visit Provider Internal Medicine
DX: I11.0 Hypertensive heart disease with heart failure (principal); I50.23 Acute on chronic systolic (congestive) heart failure; U07.1 COVID-19; J96.01 Acute respiratory failure with hypoxia; I47.1 Supraventricular tachycardia; J44.1 Chronic obstructive pulmonary disease with (acute) exacerbation; E87.3 Alkalosis; I42.8 Other cardiomyopathies; E87.6 Hypokalemia; I50.813 Acute on chronic right heart failure; G89.29 Other chronic pain; M54.50 Low back pain, unspecified; F17.210 Nicotine dependence, cigarettes, uncomplicated; I48.0 Paroxysmal atrial fibrillation; E11.9 Type 2 diabetes mellitus without complications; E87.5 Hyperkalemia; I95.9 Hypotension, unspecified; Z71.6 Tobacco abuse counseling; Z91.14 Patient's other noncompliance with medication regimen; Z95.810 Presence of automatic (implantable) cardiac defibrillator; Z88.8 Allergy status to other drugs, medicaments and biological substances; Z79.01 Long term (current) use of anticoagulants; Z79.899 Other long term (current) drug therapy
CPT/HCPCS: 36415; 36600; 71046; 71250; 80048; 80053; 81001; 82803; 82947; 83735; 83880; 84132; 84133; 84300; 84443; 84484; 85025; 85027; 87502; 87635; 93005; 93306; 94640; 94660; 99285; J1940; J2270; J2930; J3475; P9047; Q9957